=== PATIENT | male | born 1955 | race Caucasian/White ===

== ENCOUNTER 2017-08-16 15:22 | Inpatient (IN) | payer OTHER ==
[2017-08-16 16:09] LABS: Protime INR 1.03
[2017-08-16 16:11] LABS: Absolute Lymphocytes (CBC) 2.3 K/uL (0.7-4.9); Absolute Monocytes 0.6 K/uL (0.1-1.3); Absolute Neutrophil 4.3 K/uL (1.8-8.0); Basophils % 1.2 % (0-1.3); Eosinophils % 2.1 % (0-4.4); Hematocrit 47.7 % (39.6-49.0); MCH 32.8 pg (27.0-35.0); MPV 10.3 fL (7.6-11.3); Monocytes % 7.8 % (3.3-12.3); RBC Red Blood Cell Count 4.97 M/uL (4.33-5.43)
[2017-08-16 16:18] LABS: Potassium 3.8 mmol/L (3.5-5.1)
--- NOTE | 2017-08-16 16:32 | RAD REPORT ---
EXAM DESCRIPTION: RAD - Chest Single View - 08/16/2017 4:27 pm CLINICAL HISTORY: CHEST PAIN Chest pain. COMPARISON: Chest Pa And Lat (2 Views) dated 08/09/2017; Chest Pa And Lat (2 Views) dated 12/04/2015; Chest Pa And Lat (2 Views) dated 10/15/2015; CHEST SINGLE VIEW dated 04/07/2015 FINDINGS: Portable technique limits examination quality. The lungs are grossly clear. The heart is mildly enlarged in size. No displaced fractures. IMPRESSION: No acute intrathoracic process suspected.
[2017-08-16 17:54] LABS: Urine Blood NEGATIVE (NEG); Urine Glucose 2+ (NEG); Urine Protein 1+ (NEG)
--- NOTE | 2017-08-16 17:56 | ER ---
Nurse's Notes [facility] Name: Jersey De Leon Jr Age: 62 yrs Sex: Male : 1955 Arrival Date: 08/16/2017 Time: 15:27 Bed 6 Private MD: Moi Berry R Diagnosis: Chest pain, unspecified;Angina pectoris, unspecified Presentation: 08/16 15:33 Presenting complaint: Patient states: Sent by Dr. Luciano for Unstable Angina. Pt ss reports feeling fatigue, shortness of breath and unable to sleep for "a while". reports patient had an EKG three weeks ago and was told recently that it looked like he may need another cardiac stent. Transition of care: patient was not received from another setting of care. Onset of symptoms is unknown. Risk Assessment: Do you want to hurt yourself or someone else? Patient reports no desire to harm self or others. Initial Sepsis Screen: Does the patient meet any 2 criteria? No. Patient's initial sepsis screen is negative. Does the patient have a suspected source of infection? No. Patient's initial sepsis screen is negative. Care prior to arrival: None. 15:33 Method Of Arrival: Ambulatory ss 15:33 Acuity: RODERICK 3 ss Historical: - Allergies: 15:36 Morphine; ss 15:36 Paxil; ss - PMHx: 15:36 High Cholesterol; Diabetes - NIDDM; Leukemia; CAD; Kidney stones; ss - PSHx: 15:36 cardiac stents x5; ss - Immunization history:: Adult Immunizations up to date. - Social history:: Smoking status: Patient uses tobacco products, smokes one pack cigarettes per day. - Ebola Screening: : Patient denies exposure to infectious person Patient denies travel to an Ebola-affected area in the 21 days before illness onset. - Family history:: not pertinent. - Hospitalizations: : No recent hospitalization is reported. Screenin:44 Abuse screen: Denies threats or abuse. Nutritional screening: No deficits noted. tw2 Tuberculosis screening: No symptoms or risk factors identified. Fall Risk None identified. Assessment: 15:57 General: Appears in no apparent distress. Behavior is calm, cooperative, appropriate tw2 for age, Smells of cigarette smoke. Pain: Complains of pain in chest Pain does not radiate. Pain began "weeks now". Neuro: Level of Consciousness is awake, alert, obeys commands, Oriented to person, place, time, situation. Cardiovascular: Reports chest pain, shortness of breath, Heart tones S1 S2 Patient's skin is warm and dry. Respiratory: Airway is patent Respiratory effort is even, unlabored, Respiratory pattern is regular, symmetrical, Breath sounds are clear bilaterally. GI: Abdomen is round non-distended, Bowel sounds present X 4 quads. GI: No signs and/or symptoms were reported involving the gastrointestinal system. : No signs and/or symptoms were reported regarding the genitourinary system. EENT: No signs and/or symptoms were reported regarding the EENT system. Derm: Skin is intact, is healthy with good turgor, Skin temperature is warm. Musculoskeletal: Range of motion: intact in all extremities. 17:17 Reassessment: Patient appears in no apparent distress at this time. No changes from tw2 previously documented assessment. Patient and/or family updated on plan of care and expected duration. Pain level reassessed. Patient is alert, oriented x 3, equal unlabored respirations, skin warm/dry/pink. 17:24 Reassessment: pt ambulated to bathroom to urinate at this time, sample returned to tw2 room, pt walked with cane outside to smoke, states "i have been doing this at [facility] and have upstairs before", pt educated as to our hospital policy as a no smoking campus and that IV will have to be discontinued at this time, provider notified. pt remains outside to smoke at this time. 18:19 Reassessment: Patient appears in no apparent distress at this time. No changes from tw2 previously documented assessment. Patient and/or family updated on plan of care and expected duration. Pain level reassessed. Patient is alert, oriented x 3, equal unlabored respirations, skin warm/dry/pink. 19:21 Reassessment: Patient appears in no apparent distress at this time. Patient is alert, lp1 oriented x 3, equal unlabored respirations, skin warm/dry/pink. Aware of pending admission. Respiratory: Breath sounds are clear bilaterally. 19:36 Reassessment: Attempted to call report at this time, nurse will call back. lp1 19:45 Reassessment: Attempted to call report at this time. lp1 Vital Signs: 15:36 BP 115 / 70; Pulse 85; Resp 18; Pulse Ox 96% on R/A; Weight 106.59 kg; Height 6 ft. 2 ss in. (187.96 cm); Pain 0/10; 15:52 Temp 98.7(O); em1 16:14 BP 102 / 68; Pulse 70; Resp 19; Pulse Ox 96% on R/A; tw2 16:41 BP 95 / 64; Pulse 86; Resp 22; Pulse Ox 95% on R/A; tw2 17:17 BP 104 / 66; Pulse 86; Resp 21; Pulse Ox 96% ; tw2 18:19 BP 95 / 70; Pulse 82; Resp 17; Pulse Ox 96% on R/A; tw2 18:43 BP 98 / 64; Pulse 79; Resp 16; Pulse Ox 96% on R/A; tw2 19:16 BP 105 / 63; Pulse 80; Resp 18; Pulse Ox 97% on R/A; mt 19:21 BP 103 / 62; Pulse 77; Resp 15; Temp 98.3(O); Pulse Ox 95% on R/A; lp1 15:36 Body Mass Index 30.17 (106.59 kg, 187.96 cm) ss ED Course: 15:27 Patient arrived in ED. rg4 15:28 Moi Berry MD is Private Physician. rg4 15:28 Zoltan Sepulveda MD is Attending Physician. rn 15:35 Triage completed. ss 15:36 Arm band placed on right wrist. ss 15:43 Argelia Alcantara, STAN is Primary Nurse. tw2 15:43 Placed in gown. Bed in low position. Adult w/ patient. hotel office manager on. Pulse ox on. tw2 NIBP on. 15:44 Patient maintains SpO2 saturation greater than 95% on room air. tw2 15:50 No provider procedures requiring assistance completed. Inserted saline lock: 20 gauge tw2 in right antecubital area, using aseptic technique. Blood collected. 15:51 EKG done, by electrophysiology technician. reviewed by Zoltan Sepulveda MD. sm3 15:56 CBC with Diff Sent. tw2 15:56 Basic Metabolic Panel Sent. tw2 15:56 Troponin (emerg Dept Use Only) Sent. tw2 15:56 Protime (+inr) Sent. tw2 15:56 Ptt, Activated Sent. tw2 16:24 X-ray completed. Portable x-ray completed in exam room. Patient tolerated procedure ml well. 16:27 XRAY Chest (1 view) In Process Unspecified. EDMS 17:25 IV discontinued, intact, bleeding controlled, No redness/swelling at site. Pressure tw2 dressing applied. 17:55 Moi Berry MD is Hospitalizing Provider. rn 18:26 Inserted saline lock: 20 gauge in right antecubital area, using aseptic technique. tw2 18:58 Report given to STAN Nascimento. tw2 Administered Medications: 18:26 Drug: Aspirin Chewable Tablet 324 mg Route: PO; tw2 18:31 Follow up: Response: No adverse reaction tw2 18:31 Drug: NS 0.9% 250 ml Route: IV; Rate: bolus; Site: right antecubital; tw2 19:06 Follow up: IV Status: Completed infusion; IV Intake: 250ml tw2 18:52 Not Given (Patient Refused; "it lowers my Blood pressure and i will be in the 70/40's", tw2 provider notified, 250NS bolus orderd HOLD for BP >110 systolic or have director oracle database reeval ): Effient 60 mg PO once; (loading dose) Intake: 19:06 IV: 250ml; Total: 250ml. tw2 Outcome: 17:55 Decision to Hospitalize by Provider. rn 20:02 Admitted to Med/surg via wheelchair, room 208, with chart, Report called to STAN [place] lp1 20:02 Condition: stable 20:02 Instructed on the need for admit. 20:03 Patient left the ED. lp1 Signatures: Dispatcher [employer] EDMS Chelsey Caicedo Roman, MD MD rn Martinez, Eric em1 Bree Carlos RN RN ss Pily Tai RN RN lp1 Argelia Alcantara RN RN tw2 Kiley Stone [address], [facility] Jessica Bridges [facility]
--- NOTE | 2017-08-16 17:57 | EDPHYS ---
Physician Documentation [facility] Name: Jersey De Leon Jr Age: 62 yrs Sex: Male : 1955 Arrival Date: 08/16/2017 Time: 15:27 Bed 6 Private MD: Moi Berry R ED Physician Zoltan Sepulveda HPI: 08/16 15:52 This 62 yrs old Male presents to ER via Ambulatory with complaints of Chest rn Pressure, Breathing Difficulty, Weakness. 15:52 The patient has shortness of breath at rest, with light activity. Onset: The rn symptoms/episode began/occurred at an unknown time. Duration: The symptoms are intermittent. Associated signs and symptoms: Pertinent positives: non-productive cough, Pertinent negatives: chest pain, fever, hemoptysis, loss of consciousness. Severity of symptoms: At their worst the symptoms were moderate in the emergency department the symptoms are unchanged. The patient has experienced similar episodes in the past. Sent by Dr. Luciano for cath tomorrow, reports intermittent sob, at rest and with exertion, + smoker, + 5 stents in past, on maintenance chemo for leukemia. . Historical: - Allergies: 15:36 Morphine; ss 15:36 Paxil; ss - PMHx: 15:36 High Cholesterol; Diabetes - NIDDM; Leukemia; CAD; Kidney stones; ss - PSHx: 15:36 cardiac stents x5; ss - Immunization history:: Adult Immunizations up to date. - Social history:: Smoking status: Patient uses tobacco products, smokes one pack cigarettes per day. - Ebola Screening: : Patient denies exposure to infectious person Patient denies travel to an Ebola-affected area in the 21 days before illness onset. - Family history:: not pertinent. - Hospitalizations: : No recent hospitalization is reported. ROS: 15:52 Constitutional: Negative for fever, chills, and weight loss, Eyes: Negative for injury, rn pain, redness, and discharge, Neck: Negative for injury, pain, and swelling, Cardiovascular: Negative for chest pain, palpitations, and edema, Respiratory: Negative for wheezing, and pleuritic chest pain, Abdomen/GI: Negative for abdominal pain, nausea, vomiting, diarrhea, and constipation, MS/Extremity: Negative for injury and deformity, Skin: Negative for injury, rash, and discoloration, Neuro: + generalized weakness Exam: 15:52 Constitutional: This is a well developed, well nourished patient who is awake, alert, rn and in no acute distress. Head/Face: Normocephalic, atraumatic. Eyes: Pupils equal round and reactive to light, extra-ocular motions intact. Lids and lashes normal. Conjunctiva and sclera are non-icteric and not injected. Cornea within normal limits. Periorbital areas with no swelling, redness, or edema. Cardiovascular: Regular rate and rhythm with a normal S1 and S2. No gallops, murmurs, or rubs. Normal PMI, no JVD. No pulse deficits. Respiratory: faint exp wheezing, no retractions, speaks full sentences Abdomen/GI: Soft, non-tender, with normal bowel sounds. No distension or tympany. No guarding or rebound. No evidence of tenderness throughout. MS/ Extremity: Pulses equal, no cyanosis. Neurovascular intact. Full, normal range of motion. Equal circumference. Neuro: Awake and alert, GCS 15, oriented to person, place, time, and situation. Cranial nerves II-XII grossly intact. Motor strength 5/5 in all extremities. Sensory grossly intact. Cerebellar exam normal. Normal gait. Vital Signs: 15:36 BP 115 / 70; Pulse 85; Resp 18; Pulse Ox 96% on R/A; Weight 106.59 kg; Height 6 ft. 2 ss in. (187.96 cm); Pain 0/10; 15:52 Temp 98.7(O); em1 16:14 BP 102 / 68; Pulse 70; Resp 19; Pulse Ox 96% on R/A; tw2 16:41 BP 95 / 64; Pulse 86; Resp 22; Pulse Ox 95% on R/A; tw2 17:17 BP 104 / 66; Pulse 86; Resp 21; Pulse Ox 96% ; tw2 18:19 BP 95 / 70; Pulse 82; Resp 17; Pulse Ox 96% on R/A; tw2 18:43 BP 98 / 64; Pulse 79; Resp 16; Pulse Ox 96% on R/A; tw2 19:16 BP 105 / 63; Pulse 80; Resp 18; Pulse Ox 97% on R/A; mt 19:21 BP 103 / 62; Pulse 77; Resp 15; Temp 98.3(O); Pulse Ox 95% on R/A; lp1 15:36 Body Mass Index 30.17 (106.59 kg, 187.96 cm) ss MDM: 15:28 Patient medically screened. rn 17:52 Differential diagnosis: CHF exacerbation, Myocardial Infarction Pneumothorax pulmonary rn edema. Data reviewed: vital signs, nurses notes, lab test result(s), EKG, radiologic studies, plain films, and as a result, I will admit patient. Counseling: I had a detailed discussion with the patient and/or guardian regarding: the historical points, exam findings, and any diagnostic results supporting the discharge/admit diagnosis, lab results, radiology results, the need for further work-up and treatment in the hospital. Admission orders: after a detailed discussion of the patient's condition and case, the admit orders are written by me. 08/16 15:29 Order name: CBC with Diff; Complete Time: 17:43 08/16 15:29 Order name: Basic Metabolic Panel; Complete Time: 17:43 08/16 15:29 Order name: Protime (+inr); Complete Time: 17:43 08/16 15:29 Order name: Ptt, Activated; Complete Time: 17:43 08/16 15:29 Order name: Troponin (emerg Dept Use Only); Complete Time: 17:43 08/16 15:47 Order name: N-Terminal Pro-brain Natriuretic Peptide; Complete Time: 17:43 08/16 15:29 Order name: EKG; Complete Time: 15:30 08/16 15:29 Order name: EKG - Nurse/Tech; Complete Time: 15:46 08/16 15:29 Order name: XRAY Chest (1 view); Complete Time: 17:43 08/16 17:49 Order name: Urine Dipstick--Ancillary (enter results); Complete Time: 17:56 eb Administered Medications: 18:26 Drug: Aspirin Chewable Tablet 324 mg Route: PO; tw2 18:31 Follow up: Response: No adverse reaction tw2 18:31 Drug: NS 0.9% 250 ml Route: IV; Rate: bolus; Site: right antecubital; tw2 19:06 Follow up: IV Status: Completed infusion; IV Intake: 250ml tw2 18:52 Not Given (Patient Refused; "it lowers my Blood pressure and i will be in the 70/40's", tw2 provider notified, 250NS bolus orderd HOLD for BP >110 systolic or have gas dispatcher reeval ): Effient 60 mg PO once; (loading dose) Disposition: 08/16/17 17:55 Hospitalization ordered by Moi Berry for Inpatient Admission. Preliminary diagnosis are Chest pain, unspecified, Angina pectoris, unspecified. - Bed requested for Telemetry/MedSurg (Inpatient). - Status is Inpatient Admission. lp1 - Condition is Stable. - Problem is an ongoing problem. - Symptoms have improved. UTI on Admission? No Signatures: Dispatcher [employer] EDMS Zoltan Sepulveda MD MD rn Bree Carlos RN RN ss Pily Tai RN RN lp1 Argelia Alcantara RN RN tw2 Chanel Vance Corrections: (The following items were deleted from the chart) 18:18 17:55 Hospitalization Ordered by Moi Berry MD for Inpatient Admission. Preliminary eb diagnosis is Chest pain, unspecified; Angina pectoris, unspecified. Bed requested for Telemetry/MedSurg (Inpatient). Status is Inpatient Admission. Condition is Stable. Problem is an ongoing problem. Symptoms have improved. UTI on Admission? No. rn 20:03 18:18 08/16/2017 17:55 Hospitalization Ordered by Moi Berry MD for Inpatient lp1 Admission. Preliminary diagnosis is Chest pain, unspecified; Angina pectoris, unspecified. Bed requested for Telemetry/MedSurg (Inpatient). Status is Inpatient Admission. Condition is Stable. Problem is an ongoing problem. Symptoms have improved. UTI on Admission? No. eb
[2017-08-16] MEDS ORDERED: ASPIRIN 81 MG CHEWABLE TABLET ONE (18:22)
[2017-08-16] MEDS ORDERED: NA CHLORIDE 0.9% 250 ML ONE (18:31)
[2017-08-16] MEDS ORDERED: PRASUGREL (EFFIENT) 10 MG TAB PO ONE (19:00)
[2017-08-16] MEDS ORDERED: ONDANSETRON 4 MG/2 ML VIAL IV PRN (20:26)
[2017-08-16] MEDS ORDERED: GLUCAGON 1 MG/VIAL IM PRN (21:24)
[2017-08-16] MEDS ORDERED: D50W 25 GM/50 ML SYRINGE IV PRN (21:24)
--- NOTE | 2017-08-16 21:33 | EKG ---
Test Date: 2017-08-16 Test Time: 15:34:02 Decision Unit Rn: RJ MEASUREMENT RESULTS: Intervals: Rate: 85 W[place]: 152 QRSD: 96 QT: 374 QTc: 445 [place]: P: 45 [place]: 152 QRS: -33 T: 107 INTERPRETIVE STATEMENTS: Normal sinus rhythm Possible Left atrial enlargement Left axis deviation Inferior infarct, age undetermined T wave abnormality, consider lateral ischemia Abnormal ECG Compared to ECG 09/21/2015 20:14:36 Left-axis deviation now present T-wave abnormality now present Possible ischemia now present Sinus tachycardia no longer present Ventricular premature complex(es) no longer present Myocardial infarct finding still present Electronically Signed On 08-16-17 21:33:20 CDT by Danny Luciano
[2017-08-16 23:34] VITALS: BMI 30.2
--- NOTE | 2017-08-17 02:41 | CON ---
Date of Consultation: 08/16/2017 Reason For Consult: Unstable angina. History Of Present Illness: Mr. De Leon is a gentleman, who has had numerous intracoronary stents inc luding some done about 7 years ago. In 2015, he developed acute lymphocytic leukemia, and while unde rgoing chemotherapy, he had at least 2 other stents done, of which we have no records. Over the last 2 months, he has been feeling lots of shortness of breath, fatigued, discomfort in the chest, and it feels to him like he is having angina again, like he has had before. He has underlying diabetes, hy pertension, dyslipidemia. His acute lymphocytic leukemia was diagnosed in October 2015, with aggre ssive chemotherapy, is in remission, although he does continue to take mercaptopurine twice a day and methotrexate once weekly. Medications: His other medications: 1.Lipitor. 2.Tramadol. 3.Glipizide. 4.Tradjenta. 5.He also uses Humalog KwikPen insulin, exact doses are not entirely clear. Social History: He does not use tobacco. He was a smoker in the past. Allergies: HE REPORTS DRUG INTOLERANCE TO MORPHINE AND PAROXETINE. Physical Examination: Vital Signs: Height 6 feet 2 inches. Weight 235 pounds. HEENT : Normal. Lungs: Clear. Heart: Reveals an S4 gallop. Abdomen: Soft. Extremities: Unremarkable. Distal pulses are palpable. Laboratory Data: Reveals a normal troponin. Creatinine 1.0. B-natriuretic peptide 1063. His hemog lobin 16.3, platelet count 129,000, white count 7400. His urine screen is negative, except for a little sugar in his urine. His electrocardiogram shows sinus rhythm, occasional PVCs, nonspecific ST and T-wave abnormality, pos sible anterior infarct. Impression: Mr. De Leon is probably having an unstable angina. I have recommended a cardiac cath to him. He seems to understand the procedure, its potential benefits, indications, risks, and agrees to proceed. We will do this tomorrow, we will use primary radial approach. We will switch to femoral if needed. The patient seems to understand the procedure, potential benefits, indications, risks, an d agrees to proceed. PEDRO LUIS/LORETTA Voice ID: [id number] Report ID: [id number]
[2017-08-17 05:14] LABS: Absolute Lymphocytes (CBC) 2.2 K/uL (0.7-4.9); Absolute Monocytes 0.6 K/uL (0.1-1.3); Absolute Neutrophil 4.2 K/uL (1.8-8.0); Basophils % 0.5 % (0-1.3); Eosinophils % 2.4 % (0-4.4); Hematocrit 44.8 % (39.6-49.0); Lymphocytes % 30.2 % (15.3-44.8); MCH 33.3 pg (27.0-35.0); MCV 94.9 fL (80-100); MPV 10.3 fL (7.6-11.3); Monocytes % 8.7 % (3.3-12.3); RBC Red Blood Cell Count 4.72 M/uL (4.33-5.43)
[2017-08-17 05:37] LABS: Potassium 3.9 mmol/L (3.5-5.1)
[2017-08-17] MEDS: INSULIN -REGULAR HUMAN 50 UNIT/0.5 ML ML SQ SCH ×3 (07:30→16:30)
[2017-08-17] MEDS ORDERED: GLIPIZIDE S.A. 5 MG TAB PO SCH (08:00)
[2017-08-17] MEDS ORDERED: HEPA 1000U/500MLS 2,000 UNIT/1,000 ML BAG IV ONE (08:40)
[2017-08-17] MEDS ORDERED: HEPARIN 5000 UNIT/ML 1 ML VIAL ONE (08:40)
[2017-08-17] MEDS ORDERED: ATROPINE SULF 1 MG/10 ML SYR IV ONE (08:40)
[2017-08-17] MEDS ORDERED: FENTANYL CITR 100 MCG/2 ML ONE (08:40)
[2017-08-17] MEDS ORDERED: MIDAZOLAM HCL 2 MG/2 ML INJ ONE ×2 (08:40→09:50)
[2017-08-17] MEDS ORDERED: NA CHLORIDE 0.9% 0 ML ONE (08:40)
[2017-08-17] MEDS ORDERED: NICARDIPINE HCL 25 MG/10 ML IV ONE (08:41)
[2017-08-17] MEDS ORDERED: NITROGLYCERIN/D5W 25 MG/250 ML BTL IV ONE (08:41)
[2017-08-17] MEDS ORDERED: LIDOCAINE 1% 20 ML MDV ONE (08:41)
[2017-08-17] MEDS ORDERED: ASPIRIN EC 81 MG TAB PO SCH (09:00)
[2017-08-17] MEDS ORDERED: PRASUGREL (EFFIENT) 10 MG TAB PO SCH (09:00)
[2017-08-17 09:04] VITALS: TEMP 97.4
[2017-08-17] MEDS ORDERED: NA CHLORIDE 0.9% 500 ML ONE (09:31)
[2017-08-17 11:48] VITALS: O2SAT 95
[2017-08-17 11:51] VITALS: BP 113/75
--- NOTE | 2017-08-17 12:06 | HP ---
Date of Admission: 08/16/2017 Chief Complaint: Recurrent chest pain. History Of Present Illness: A 62-year-old male, who is undergoing chemotherapy for leukemia started having recurrent chest pain. He was advised to see the local loader helper. The patient was seen in the emergency room. There was no evidence of acute injury. The patient is admitted for possible cat heterization. Past Medical History: Relevant to the current issue is history of cardiac stenting x5, history of hi gh cholesterol, type 2 diabetes. Other medical problems include current treatment of leukemia and hi story of kidney stones. Allergies: MORPHINE AND PAXIL. Family History: Noncontributory. Personal History: Nonsmoker. Review of Systems: No fever, chills, rigors. Physical Examination: General: Reveals 62-year-old male, fully alert and oriented. HEENT: Negative. Neck: Supple. JVD negative. Chest: Clear. Heart: Regular. Abdomen: Soft. Extremities: No edema. Assessment: 1.Unstable angina. 2.Type 2 diabetes. 3.Known coronary artery disease, status post angioplasty. 4.Hyperlipidemia. 5.Leukemia, on chemotherapy. Plan: The patient had a cardiac cath done and because of extensive nature of the disease, the patien t is in the process of being transferred to [facility] for further care. CHARO/LORETTA Voice ID: [id number]
--- NOTE | 2017-08-17 12:08 | EKG ---
Test Date: 2017-08-17 Test Time: 08:45:02 Food Production Associate: MATILDA MEASUREMENT RESULTS: Intervals: Rate: 79 [place]: 158 QRSD: 96 QT: 396 QTc: 454 [place]: P: 54 [place]: 158 QRS: -22 T: 101 INTERPRETIVE STATEMENTS: Sinus rhythm with occasional premature ventricular complexes Possible Left atrial enlargement Inferior infarct, age undetermined Abnormal ECG Compared to ECG 08/16/2017 15:34:02 Ventricular premature complex(es) now present Left-axis deviation no longer present T-wave abnormality no longer present Possible ischemia no longer present Myocardial infarct finding still present Electronically Signed On 08-17-17 12:07:10 CDT by Danny Luciano
--- NOTE | 2017-08-17 20:18 | OP ---
Surgeon: Danny Luciano MD Procedures: Left heart catheterization with coronary and left ventricular angiography. Findings: The patient's ejection fraction is 25%. There is akinesis of the apex anterolateral wall. His left main coronary artery has a 70% stenosis. The circumflex trunk has a 70% stenosis. The LA D has a patent stent, less than 50% stenosis. The right coronary artery is diffusely diseased, multi ple sequential 50-70% stenoses and the recommendation is that he undergo bypass surgery. Procedure In Detail: The patient developed signs and symptoms of unstable angina, who gave us inform ed consent, was brought to the cardiac laboratory tech in a fasting state, sedated with Versed and fentanyl, titrated to an adequate level of sedation. The right radial artery was used, prepared and draped. A 1% lidocaine was used to anesthetize the skin around the artery. The artery was entered using a 21 -gauge needle. A 0.021 inch diameter guidewire, 6-Namibian Terumo radial sheath was used. We flushed the sheath and gave the radial cocktail consisting of nicardipine, heparin, nitroglycerin. We used a TIG catheter. Guided it into the ascending aorta. Using fluoroscopy and a Augure Glidewire with a short radius J-tip, we were able to use the TIG catheter for all of the angiograms and pressure measu rements. At the end of the procedure when a decision was made not to do any intervention, the cathet er was withdrawn over a J-wire. The sheath was flushed, removed, and arteriotomy closed using a TR b and. No complications from the procedure. Estimated Blood Loss: 5 cc. Continuous Improvement Director: Jyotsna Valdez. PEDRO LUIS/LORETTA Voice ID: [id number] Report ID: [id number]
[2017-08-17] MEDS ORDERED: ATORVASTATIN 80 MG TAB PO SCH (21:00)
== END 2017-08-17 16:30 | disposition short-term general hospital (02) | DRG 287 ==
LOC: ER 15:22 → ERHOLD 17:57 → 2ND 19:47
PROVIDERS: ADMIT Internal Medicine; ATTEND Internal Medicine
PROC: 4A023N7 Measurement of Cardiac Sampling and Pressure, Left Heart, Percutaneous Approach (ICD-10-PCS; principal; 2017-08-17)
PROC: B2111ZZ Fluoroscopy of Multiple Coronary Arteries using Low Osmolar Contrast (ICD-10-PCS; 2017-08-17)
PROC: B2151ZZ Fluoroscopy of Left Heart using Low Osmolar Contrast (ICD-10-PCS; 2017-08-17)
DX: I25.110 Atherosclerotic heart disease of native coronary artery with unstable angina pectoris (principal); C91.00 Acute lymphoblastic leukemia not having achieved remission; Z95.5 Presence of coronary angioplasty implant and graft; E11.9 Type 2 diabetes mellitus without complications; Z88.5 Allergy status to narcotic agent; Z88.8 Allergy status to other drugs, medicaments and biological substances; E78.5 Hyperlipidemia, unspecified; Z79.4 Long term (current) use of insulin; F17.210 Nicotine dependence, cigarettes, uncomplicated; I11.9 Hypertensive heart disease without heart failure; I49.3 Ventricular premature depolarization
CPT/HCPCS: 36415; 71045; 80048; 81003; 82962; 83880; 84484; 85025; 85610; 85730; 93005; 93458; 96365; 99285; C1893; J0583; J1644; J2250; J3010

== ENCOUNTER 2020-05-19 06:36 | Day surgery (SDC) | payer OTHER ==
--- NOTE | 2020-05-15 16:05 | RAD REPORT ---
EXAM DESCRIPTION: RAD - Chest Pa And Lat (2 Views) - 05/15/2020 4:00 pm CLINICAL HISTORY: preop Chest pain. COMPARISON: Chest Pa And Lat (2 Views) dated 12/14/2018; Chest Single View dated 08/16/2017; Chest Pa And Lat (2 Views) dated 08/09/2017; Chest Pa And Lat (2 Views) dated 12/04/2015; CHEST SINGLE VIEW date d 02/11/2008 FINDINGS: The lungs are mildly emphysematous but clear. The heart is normal in size. Multilead pacer /defibrillator device is present. Postsurgical changes are present of prior sternotomy. IMPRESSION: Mild COPD.
[2020-05-15 16:29] LABS: Protime INR 0.95
[2020-05-15 16:30] LABS: Absolute Lymphocytes (CBC) 3.3 K/uL (0.7-4.9); Basophils % 0.9 % (0-1.3); Hematocrit 50.9 % (39.6-49.0); Lymphocytes % 33.1 % (15.3-44.8); MPV 9.8 fL (7.6-11.3); RBC Red Blood Cell Count 5.65 M/uL (4.33-5.43)
[2020-05-15 16:47] LABS: Potassium 4.8 mmol/L (3.5-5.1)
--- NOTE | 2020-05-16 12:48 | EKG ---
Test Date: 2020-05-15 Test Time: 14:44:14 Truck Rental Manager: NOEMY MEASUREMENT RESULTS: Intervals: Rate: 85 ME: 166 QRSD: 100 QT: 374 QTc: 445 [place]: P: 63 ME: 166 QRS: -32 T: 129 INTERPRETIVE STATEMENTS: Normal sinus rhythm Possible Left atrial enlargement Left axis deviation Left ventricular hypertrophy with repolarization abnormality Inferior infarct, age undetermined Abnormal ECG Compared to ECG 08/17/2017 08:45:02 Left-axis deviation now present Left ventricular hypertrophy now present Early repolarization now present Ventricular premature complex(es) no longer present Myocardial infarct finding still present Electronically Signed On 05-16-20 12:45:37 CDT by Shawn Lockhart
[2020-05-19] MEDS ORDERED: NA CHLORIDE 0.9% 500 ML ONE (07:10)
[2020-05-19] MEDS ORDERED: LIDOCAINE 1% 20 ML MDV ONE (07:35)
[2020-05-19] MEDS ORDERED: HEPA 1000U/500MLS 1,000 UNIT/500 ML BAG IV ONE (07:35)
[2020-05-19] MEDS ORDERED: MIDAZOLAM HCL 2 MG/2 ML INJ ONE (07:35)
[2020-05-19] MEDS ORDERED: ATROPINE SULF 1 MG/10 ML SYR IV ONE (07:36)
[2020-05-19] MEDS ORDERED: FENTANYL CITR 100 MCG/2 ML ONE (07:36)
[2020-05-19 08:22] VITALS: TEMP 96.3
[2020-05-19 10:09] VITALS: BP 104/63; O2SAT 95
--- NOTE | 2020-05-19 12:11 | OP ---
Surgeon: Shawn Lockhart MD [employer] Manager: Dasia Aldana. A CD will be given to the patient and I will make an urgent appointment for him at [facility] for endarterectomy. Admitted to my service as an outpatient to the cath lab manager today 05/19/2020. Reason For Admission: Cerebrovascular disease, positive carotid Doppler, and the need for carotid an giogram. The patient underwent selective bilateral carotid angiogram. Procedure In Detail: He was brought to the cath lab manager as an outpatient, prepped and draped in the rout ine sterile fashion. Given Versed and fentanyl for sedation. A 6-Kazakh sheath was introduced in th e right common femoral artery successfully using the Seldinger technique and 10 cc of Xylocaine. A J R4 catheter was used to select the right common carotid artery and the left common carotid artery. A ngiography revealed a 95% ostial right internal carotid artery and a 50% stenosis in the left interna l carotid artery. There were no complications. Blood loss was 5 mL. Total conscious sedation was 4 5 minutes. Postoperative Diagnoses: Severe cerebrovascular disease, severe right ICA disease, moderate left ICA disease. Plan: Plan for a right carotid endarterectomy. REBEKAH/LORETTA Voice ID: [id number] Report ID: [id number]
== END 2020-05-19 10:10 | disposition home or self-care (01) ==
LOC: CCL 06:36
DX: I65.23 Occlusion and stenosis of bilateral carotid arteries (principal); I25.10 Atherosclerotic heart disease of native coronary artery without angina pectoris; I11.0 Hypertensive heart disease with heart failure; I50.22 Chronic systolic (congestive) heart failure; E78.2 Mixed hyperlipidemia; E11.9 Type 2 diabetes mellitus without complications; J44.1 Chronic obstructive pulmonary disease with (acute) exacerbation; Z95.810 Presence of automatic (implantable) cardiac defibrillator; Z95.1 Presence of aortocoronary bypass graft; Z87.891 Personal history of nicotine dependence; Z88.8 Allergy status to other drugs, medicaments and biological substances; Z20.822 Contact with and (suspected) exposure to COVID-19
CPT/HCPCS: 93005; 85025; 80048; 36415; 85610; 82947; 85730; 71046; 36222; U0003; C1893; C1760; J2250; J3010; J7040; J1644

== ENCOUNTER 2020-09-09 10:42 | Emergency (ER) | payer OTHER ==
--- OUTSIDE RECORDS SUMMARY | 2020-09-09 10:52 | XMS REPORT | Continuity of Care Document ---
:1955 Author Organization [facility] t Address [address] [place] [address] Care Team Providers Name Role Phone Ravindra MORAN Primary Care Physician Unavailable SYSTEM, NOT IN Attending Clinician Unavailable DO SORENSEN Attending Clinician Unavailable TAL Attending Clinician Unavailable Ravindra MORAN Attending Clinician Unavailable Girish Dunn RN Attending Clinician Lamont Latham MD Attending Clinician Kath GUZMÁN Attending Clinician LAMONT LATHAM Attending Clinician Unavailable Tian GUZMÁN Attending Clinician Sin Brown Attending Clinician Unavailable Gilmar PIERCE, S Attending Clinician Unavailable Tian GUZMÁN Attending Clinician Doctor Unassigned, Name Attending Clinician Unavailable LAMONT LATAHM Admitting Clinician Unavailable Payers Payer Name Policy Type Policy Number Effective Date Expiration Source Date MEDICARE PART A AND B [id number] 2020 00:00:00 [facility] [id number] 2020 00:00:00 MEDICAREMEDICARE A [id number] 2020 NIGEL landry [id number] 2020- 00:00:00 [facility] [id number] [facility] SUPPLEMENT/INDIVIDUAL 00:00:00 [facility] - BANKER'S Medical [id number] -PresentMedigap [facility] - [id number] 2015 [facility] MGD CAREUNITED HMO 00:00:00 [facility] - POS SELECT Medical [id number] 16-PresentHMO/POS [facility] PPO [id number] 2015 00:00:00 Problems Condition Condition Condition Status Onset Resolution Last Treating Co mments Source Name Details Category Date Date Treatment Clinician Date Stenosis Stenosis Disease Active [facility] right of right 05-29 [facility] - carotid carotid 00:00: Medical artery artery 00 Center Right Right Disease Active [facility] carotid carotid 05-29 [facility] - artery artery 00:00: Medical occlusion occlusion 00 Cent er Ischemic Ischemic Disease Active 2017-02 Metho di cardiomyop cardiomyop 02-25 st athy athy 00:00: Hospita 00 l HTN HTN Disease Active [facility] (hypertens (hypertens 08-29 Vania kes - ion) ion) 00:00: Medical 00 Center DM DM Disease Active [facility] (diabetes (diabetes 08-29 [facility] - mellitus) mellitus) 00:00: Medi harpal 00 Center VT VT Disease Active [facility] (ventricul (ventricul 08-29 Vania kes - ar ar 00:00: Medical tachycardi tachycardi 00 Ce nter a) a) Systolic Systolic Disease Active [facility] heart heart 08-29 [facility] - failure failure 00:00: Medical (HCC): EF (HCC): EF 00 Cent er 25-29% on 25-29% on 08/29/17 08/29/17 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) 00:00: Medi harpal in in 00 Center remission remission CAD CAD Disease Active [facility] (coronary (coronary 7 [facility] - artery artery 00:00: Medical disease) disease) 00 Center Respirator Respirator Disease Active [facility] y y [facility] - insufficie insufficie Me dical ncy ncy Center S/P CABG x S/P CABG x Disease Active [facility] 2 2 [facility] Cardiogeni Cardiogeni Disease Active [facility] c shock c shock [facility] Lactic Lactic Disease Active [facility] acidosis acidosis [facility] Acute Acute Disease Active [facility] respirator respirator kes - y failure y failure [facility] with with Center hypoxia hypoxia Allergies, Adverse Reactions, Alerts Allergy Allergy Status Severity Reaction(s) Onset Inactive Treating Comm ents Source Name Type Date Date Clinician Morphine Propensi Active Other (See 2017-02 "Heart Me thodi ty to Comments) 02-[address] adverse 00:00: symptoms" Hospit a reaction 00 "Dyspnea, l s to elevated drug BP, irregular heart rhythm" Paroxeti Propensi Active Other (See 2017-02 "Made me Methodi ne Hcl ty to Comments) 02-25 crazy" st adverse 00:00: Hospita reaction 00 l s to drug Morphine Drug Active Palpitations Respirato [facility] Allergy 08-17 ry kes - 00:00: depressio Medical 00 n Center Paroxeti Propensi Active [facility] ne Hcl ty to 08-17 [facility] - adverse 00:00: Medical reaction 00 Center s Social History Social Habit Start Date Stop Date Quantity Comments Source History SDCT Sabianism Alcohol Binge Hospital History [facility] Sabianism Alcohol Std Drinks Hospit al Sex Assigned At [facility] Cigarettes smoked 2020-05-30 2020-05-[address] [facility] varsha - current (pack per 00:00:00 00:00:00 [facility] Center day) - Reported Cigarette 2020-05-30 2020-05-[address] [facility] varsha - pack-years 00:00:00 00:00:00 [facility] Tobacco use and 2020-05-30 2020-05-[address] [facility] L ukes - exposure 00:00:00 00:00:00 [facility] Alcohol intake 2020-05-30 2020-05-[address] [facility] St Carok es - 00:00:00 00:00:00 non-drinker of Medical Ce nter alcohol (finding) History SDOH 2017-12-26 2017-12-26 1 Sabianism Alcohol Frequency 00:00:00 00:00:00 Hospita l Smoking Status Start Date Stop Date Source Current every day smoker 2020-05-30 00:00:[address] [facility] Medications Ordered Filled Start Stop Current Ordering Indication Dosage Frequency Signature Comments Components Source Medication Medication Date Date Medication? Clinician (SIG) Name Name ipratropium Yes 2{puff} [id number] Inhale [address] (ATROVENT 4-24 [id number] puffs by [facility] - HFA) 17 13:25: 3D mouth via Medic al mcg/actuati [address] on inhaler (three) times daily. aspirin 81 Yes 81mg QD Take [address] MG EC 4-24 by mouth [facility] - tablet 13:25: daily. Medical 44 Center atorvastati Yes 80mg QD Take [address] n (LIPITOR) 4-24 by mouth Luke s - 80 MG 13:25: daily. Medical tablet 44 Center sacubitril- Yes 1{tbl} Q.5D Take [address] valsartan 4-24 tablet by [facility] - (ENTRESTO) 13:25: mouth 2 Medi harpal 24-26 mg 44 (two) Center Tab times daily. bumetanide Yes 1mg Q.5D Take [address] (BUMEX) 1 4-24 by mouth 2 Luke s - MG tablet 13:25: (two) Medical 44 times Center daily. calcium Yes 1{tbl} QD Take [address] carbonate 4-24 tablet by [facility]ukes - (TUMS) 500 13:25: mouth Medica l mg chewable 44 daily. Center tablet promethazin 2020- No 25mg Take [address] e -23 -23 by mouth [facility] - (PHENERGAN) 22:33: 00:00 every 8 Me dical 12.5 MG 14 :00 (eight) Center tablet hours as needed for Nausea. glipiZIDE 2020- No 5mg Take [address] (GLUCOTROL) 23 04-23 by mouth 2 L ukes - 10 MG 22:33: 00:00 (two) Medical tablet 14 :00 times Center daily before meals . cetirizine 2020- No 10mg QD Take [address] (ZYRTEC) 10 4-14 04-14 by mouth Carlos es - mg Cap 11:19: 00:00 nightly. Medica l 32 :00 [place] insulin 2019-02 Yes 15U Inject 15 [facility] glargine 0-28 Units [facility]ukes - (Lantus 00:00: subcutaneo Medi harpal Solostar 00 usly daily Cente r U-100 with Insulin) breakfast 100 unit/mL . (3 mL) In insulin 2019-02 Yes 4U Inject [facility] lispro 0-28 4-10 Units [facility]ukes - (HumaLOG 00:00: subcutaneo Med ical KwikPen 00 usly Center Insulin) Sliding 100 unit/mL scale. [facility] budesonide- 2019-02 Yes 2{puff} Q.5D [address] formoteroL 0-23 (two) [facility] - (Symbicort) 00:00: times Medic al 160-4.5 00 daily. [place] mcg/actuati on inhaler traMADol 2017-02 Yes 50mg Take [address] (ULTRAM) 50 2-27 by mouth. Carlos es - mg tablet 00:00: Medical 00 [place] atorvastati 2017-02 Yes 80mg QD Take 80 mg Methodi n (LIPITOR) 1-[address] 80 MG 15:07: daily. Hospita tablet 39 States l cholestero l levels have improved, and also needs new prescripti on aspirin 2017-02 Yes 81mg QD Take 81 mg Meth joo (ECOTRIN) 1-[address] 81 MG 15:07: daily. Hospita enteric 39 l coated tablet ipratropium 2017-02 Yes 1{puff} Inhale 1 Methodi (ATROVENT 1-[address] HFA) 17 15:07: needed for Hosp gene mcg/actuati 39 wheezing. l on inhaler promethazin 2017-02 Yes 12.5mg Q6H Take 12.5 Methodi e 1-[address] (PHENERGAN) 15:07: mouth Hospi ta 12.5 MG 39 every 6 l tablet (six) hours as needed for nausea or vomiting. sacubitril- 2017-02 Yes Q.5D Take by Met hodi valsartan 1-[address] (ENTRESTO) 15:07: (two) Hospit a 24-26 mg 39 times a l tablet per day. tablet linagliptin 2017-02 Yes 5mg QD Take 5 mg M ethodi (TRADJENTA) 1-[address] 5 mg tablet 15:07: every Hospi ta 39 evening. l States has not needed recently glipiZIDE 2017-02 Yes 10mg QD Take 10 mg Me thodi (GLUCOTROL) 1-[address] 10 MG 15:07: every Hospita tablet 39 morning. l amIODarone 2017-02 Yes 200mg QD Take 200 Me thodi (PACERONE) 1-[address] 200 MG 15:07: mouth Hospita tablet 39 daily. l BUMETanide 2017-02 Yes 1mg Q.5D Take 1 mg Me thodi (BUMEX) 1 1-[address] MG tablet 15:07: (two) Hospita 39 times a l day. calcium 2017-02 Yes 1{tbl} QD Chew 1 Method i carbonate 1-[address] (TUMS) 200 15:07: daily. Hospi ta mg calcium 39 l (500 mg) chewable tablet amiodarone 2020- No Take [address] (PACERONE) 7- 04-23 for 7 days Vania kes - 200 MG 00:00: 00:00 then Medical tablet 00 :00 reduced to Center 1 po daily thereafter . Vital Signs Vital Name Observation Time Observation Value Comments Source WEIGHT 2020-06-23 08:36:00 94.2 kg WEIGHT 2020-01-02 09:41:00 101.4 kg WEIGHT 2019-09-05 09:33:21 99.2 kg Heart rate 2020-05-31 09:16:00 92 /min [facility] Respiratory rate 2020-05-31 09:16:00 18 /min [facility] Oxygen saturation in 2020-05-31 09:16:00 97 /min [facility] - Arterial blood by Medical Ce nter Pulse oximetry Systolic blood 2020-05-31 07:00:00 116 mm[Hg] [facility] Diastolic blood 2020-05-31 07:00:00 72 mm[Hg] [facility] S t [facility] Body temperature 2020-05-31 07:00:00 36.33 La [facility] Body height 2020-05-30 16:33:00 185.4 cm [facility] Body weight 2020-05-30 16:33:00 92.8 kg [facility] BMI 2020-05-30 16:33:00 26.99 kg/m2 [facility] Procedures Procedure Date / Time Performed Performing Clinician Tyra e POCT-GLUCOSE METER 2020-05-31 08:18:00 Francis Stockton [facility] POCT-GLUCOSE METER 2020-05-30 21:07:00 Francis Stockton [facility] POCT-GLUCOSE METER 2020-05-30 17:05:00 Justo Latham [facility] POCT-GLUCOSE METER 2020-05-30 12:30:00 Justo Latham [facility] POCT-GLUCOSE METER 2020-05-30 08:41:00 Justo Latham [facility] TSH/FREE T4 IF INDICATED 2020-05-30 08:13:00 Maxx Bharatrashad Da Silvasin josephine [facility] RPR 2020-05-30 08:13:00 Maxx [facility] VITAMIN B12 AND FOLATE 2020-05-30 08:13:00 Maxx [facility] CBC W/PLT COUNT & AUTO 2020-05-30 05:45:00 Francis Stockton [facility] BASIC METABOLIC PANEL 2020-05-30 05:45:00 Francis Stockton [facility] (7) [facility] MAGNESIUM 2020-05-30 05:45:00 Francis Stockton [facility] HEMOGLOBIN A1C 2020-05-30 05:45:00 Francis Stockton [facility] LIPID PANEL 2020-05-30 05:45:[address] [facility] POCT-GLUCOSE METER 2020-05-29 21:23:00 Justo Latham [facility] POCT-GLUCOSE METER 2020-05-29 17:39:00 Noa Justo [facility] GLUCOSE 2020-05-29 15:31:00 Yi Luciano [facility] POTASSIUM 2020-05-29 15:31:00 Yi Luciano [facility] LACTIC ACID, ARTERIAL 2020-05-29 15:31:00 Yi Luciano [facility] BASIC METABOLIC PANEL 2020-05-29 15:31:00 Yi Luciano [place] [id number]) [facility] POCT-GLUCOSE METER 2020-05-29 13:44:00 Noa [facility] POCT-GLUCOSE METER 2020-05-29 12:58:00 Noa Justo [facility] POCT-GLUCOSE METER 2020-05-29 11:40:00 Noa [facility] XR CHEST 1 VIEW 2020-05-29 11:29:00 Yi Luciano [facility] PORTABLE/BEDSIDE [facility] ECG 12-LEAD 2020-05-29 10:01:02 Unknown, Hl7 [facility] BLOOD GAS, ARTERIAL 2020-05-29 09:58:00 Garrick Ingram [facility] LACTIC ACID, ARTERIAL 2020-05-29 09:56:00 Garrick Ingram [facility] BASIC METABOLIC PANEL 2020-05-29 09:56:00 Garrick Ingram [place] [id number]) [facility] CBC (HEMOGRAM ONLY) 2020-05-29 09:56:00 Garrick Ingram [facility] MAGNESIUM 2020-05-29 09:56:00 Garrick Ingram [facility] BLOOD GAS, ARTERIAL 2020-05-29 09:08:16 [facility] 2020-05-29 09:08:16 Oliveros, [facility] POTASSIUM-STAT LAB 2020-05-29 09:08:16 Oliveros, [facility] GLUCOSE-STAT LAB 2020-05-29 09:08:16 Oliveros, [facility] HGB/HCT (H&H) - STAT LAB 2020-05-29 09:08:16 Oliveros, [facility] TISSUE EXAM 2020-05-29 08:36:00 Justo Latham [facility] BLOOD GAS, ARTERIAL 2020-05-29 08:13:30 Oliveros, [facility] CALCIUM, IONIZED 2020-05-29 08:13:30 Oliveros, [facility] SODIUM NA-STAT LAB 2020-05-29 08:13:30 Oliveros, [facility] POTASSIUM-STAT LAB 2020-05-29 08:13:30 Oliveros, [facility] GLUCOSE-STAT LAB 2020-05-29 08:13:30 Oliveros, [facility] HGB/HCT (H&H) - STAT LAB 2020-05-29 08:13:30 Oliveros, [facility] ENDARTERECTOMY,CAROTID 2020-05-29 07:00:00 Noa [facility] TYPE AND SCREEN, 2020-05-29 06:47:00 NoaJusto dominguez [facility] POCT-GLUCOSE METER 2020-05-29 06:26:00 NoaJusto dominguez [facility] CBC W/PLT COUNT & AUTO 2020-05-21 12:40:00 [facility] 2020-05-21 12:40:[address] [facility] () [facility] PROTHROMBIN TIME/INR 2020-05-21 12:40:00 [facility], 2020-05-21 12:40:[address] [facility] ECG 12-LEAD 2020-05-21 12:15:[address] [facility] Plan of Care Planned Activity Planned Date Details Comments Source Future Scheduled 2023-05-[address] [facility] - Test 00:00:00 (procedure) [code = Medical Center [id number]] Future Scheduled 2020-10-[address] [facility] Test 00:00:00 (Season Ended) [code = Medic al Center INFLUENZA VACCINE (Season Ended)] Future Scheduled 2020-08-[address] Vania kes - Test 00:00:00 measurement Medical Center (procedure) [code = 91669877] Future Scheduled 2020-02-09 PNEUMOCOCCAL 65+ YRS [facility] - Test 00:00:00 (1 of 1 - Medical Center [id number] PCV13) [code = PNEUMOCOCCAL 65+ YRS (1 of 1 - [id number] PCV13)] Future Scheduled 2020 Medicare IPPE (WELCOME [facility] Test 00:00:00 TO MEDICARE) [code = Medical Center Medicare IPPE (WELCOME TO MEDICARE)] Future Scheduled 2005 SHINGLES VACCINES ([address] [facility] - Test 00:00:00 of 2) [code = SHINGLES Medic al Center VACCINES (1 of 2)] Future Scheduled 1974 DTAP/TDAP/TD VACCINES [facility] - Test 00:00:00 (1 - Tdap) [code = Medical C enter DTAP/TDAP/TD VACCINES (1 - Tdap)] Future Scheduled 1973 HEPATITIS C SCREENING [facility] Test 00:00:00 [code = HEPATITIS C Medical Center SCREENING] Future Scheduled 1967 COVID-19 VACCINE (1) [facility] Test 00:00:00 [code = COVID-[address] VACCINE (1)] Future Scheduled 1965 DIABETIC EYE EXAM [facility] Test 00:00:00 [code = DIABETIC EYE Medical Center EXAM] Future Scheduled [address] [facility] - Test 00:00:00 examination Medical Center (regime/therapy) [code = 106123649] Future Scheduled 1965 Urine screening for [facility] Test 00:00:00 protein (procedure) Medical Center [code = 196401824] Future Scheduled [address] [facility] - Test 00:00:00 malignant neoplasm of Medica Center colon (procedure) [code = 796139255] Future Scheduled 65+ [facility]OCOCCAL [facility] Test VACCINE (1 of 2 - PPSV23) [code = 65+ PNEUMOCOCCAL VACCINE (1 of 2 - PPSV23)] Future Scheduled DIABETES: RETINAL [facility] EXAM [code = DIABETES: RETINAL EYE EXAM] Future Scheduled DIABETIC FOOT [facility] Test [code = DIABETIC FOOT EXAM] Future Scheduled COVID-19 VACCINE (1) [facility] Test [code = COVID-19 VACCINE (1)] Future Scheduled [facility] Test (procedure) [code = 508110654] Future Scheduled COLONOSCOPY SCREENING [facility] Test [code = COLONOSCOPY SCREENING] Future Scheduled SHINGLES VACCINES (#1) [facility] Test [code = SHINGLES VACCINES (#1)] Future Scheduled INFLUENZA VACCINE [facility] Test [code = INFLUENZA VACCINE] Encounters Start End Encounter Admission Attending Care Care Encounter Source Date/Time Date/Time Type Type Clinicians Facility Department ID 2020-07-04 Outpatient SYSTEM, GUILHERME VANEGAS [id number] 11:35:20 JOSE EDUARDO hoffman 2020-06-23 2020-06-23 Outpatient CAITLIN SORENSEN MDA MDA [id number] 13:20:00 23:59:00 JUAN hoffman 2020-06-23 2020-06-23 Outpatient CAITLIN PARADA MDA MDA [id number] 09:30:00 13:19:00 NASEEM hoffman 2020-06-23 2020-06-23 Outpatient CAITLIN MORAN MDA MDA [id number] 08:33:20 10:11:09 SILVANA hoffman 2020-06-23 2020-06-23 Outpatient CAITLIN PARADA MDA MDA [id number] 06:51:35 09:29:00 NASEEM hoffman 2020-01-02 2020-01-02 Outpatient CAITLIN MORAN MDA MDA [id number] 07:30:00 23:59:00 SILVANA hoffman 2020-01-02 2020-01-02 Outpatient CAITLIN MORAN MDA MDA [id number] 09:20:44 10:25:29 SILVANA Raul o n 2019-12-12 2019-12-12 Telephone [facility] [id number] 00:00:00 00:00:00 Kim Crabtree [id number] Eleanor [id number] Professio [phone] [facility] [address] [facility] 2019-12-05 2019-12-05 [facility] [id number] 14:07:04 15:07:40 Visit Kim Crabtree [id number] Eleanor [id number] Professio [phone] [facility] [address] [facility] 2019-12-05 2019-12-05 Orders Doctor ROSS [id number] 00:00:00 00:00:00 Only Unassigned, REMI [id number] [place] [facility] [id number] 2019-09-05 2019-09-05 Outpatient CAITLIN PARADA GUILHERME VANEGAS [id number] 10:00:00 23:59:00 NASEEM hoffman 2019-09-05 2019-09-05 Outpatient CAITLIN MORAN GUILHERME VANEGAS [id number] 09:04:44 10:45:55 SILVANA hoffman 2019-09-05 2019-09-05 Outpatient CAITLIN PARADA GUILHERME VANEGAS [id number] 07:35:44 09:59:00 NASEEM hoffman Results Test Description Test Time Test Comments Results Result Comments Source Tissue Exam 2020-06-03 17:13:00 Test Item Value Reference Range Interpretation Comme nts Case Report (test code = 104) Surgical Pathology Report Case: [id number] Authorizing Provider: Justo Latham, Collected: 05/29/2020 08:36 AM Ordering Location: [facility] Received: 05/29/2020 10:20 AM PERIOPERATIVE SERVICES Pathologist: Herb Ramsey MD Specimen: Plaque, Right carotid artery plaque DIAGNOSIS (test code = 3220) p5fhuJEoYJRak9jyIPKyaERvDxYxFnQjKnYdPe pc dWMxIHtccnRmMVxlcGljOTIwMlxhbnNpXHNwbHRw R0IugyuqSWhwVS8oWP8ufJojeUOjpCYoNARdVwAn m2dsr787dHPet0jmRPEOinosdUl1bHptF19gd0W0 UzieR69mmVUuLMxqaNFtugmfqjUoHGEOSVWRDLzz AUSTSCUOWFDAVRuCQOFJTvMWBkYLBdJSPK7HTYet lVBjFLNFQFYTYkdATNDBKIPSN5FDKUTRB5DFVeLJ DVBHUUXifABtZNkHVOnNHKajVdjGTnpZBXOSYc5X AwJIDOFpud95BCR7IsMsr4A1IZJ3RZMmRVJcl2hs XHIdyHDcGpPpReRcCeVcJofknWKpXFLlTzLzx2kz y134yGTqv3jtIJTfKbW2eFQaOPUajODxA079DOSw DPwho5hfn8HiSVJchQVzg2X0NKIQndbfaLh5uOfv V39jk9M3QklfT2bqWPFnRYYxI0CnAP4vHPChBul7 ZMT4GXE5NAEoMYBtZ0CoXI9uKROmoUGbJZq4r7up ySikDZWuHGE2b8maGQievmXdII3orl3nnAf6l8fd frGtQBJvUYNwfYXPEAXiH5FrdKtiZk8eiKz4gRde CphxCMT6Xhd2QR7jpo05zgx8hQolIZPklfzmZuA9 TFcoISIhvorpCJc1VHtaETHtdAX9XTDfqUEdF2Zs YZBrAG0cazh1RUV2GDysMSMxLoI4DRSywSAeMZPq aXllTKodr536ZRP6CtZhDS3nU6Ybg4B9fA8xdSDe XBAgoCHaCkRxPXGirj9syHAtZTkzj6XpEOB5tvH4 qDRbyFKoUPHaTjA6FEheCU2gfw71YCVqFWL3jm5c zMAawZkosxOejLUcZZsbA0GlEOAvw936NAAtF8Kk WWMrf0V8doByEtWsLEWbcGI3abH4XPKxOE9jzvxo h8zxBBrxYMhiMTLoooM5gfR1BKCelXLsE6RbpK9g KKMbKL5cgopei8wkTSJ6LIuxDINcAQB7YsJpOUMg x7Ofpfk6JtOyc4HupVMhMGdxK49yi370SAJfrmOu X2jltIBribwhwAEtvxtnLNjmwfP3EMQdOMiuqcej EBQxTHklU8rqBuMlNOVpjAcrEDghj3EwSTPaYKOz SwPgcBHjGSNlRoq3LZFgrACnEMFiOcMwY1ljzplq QlGPRMUni4osL3ogzERXoIYdZ3CuCUjjhpGuIVop FUtuMWUnHRH1XW52CbpgJPXrip17 CPT Code(s) (test code = 3147) f8ddjHOuKRRosBU5NvAhTDNlj2aog5XtcXRu cGFy HZwffDQjfjZsqv60eKO9oC00VC3lYFLdEwH4STAh rrW5Rvb4LWKvEKFavVScY828u9pfb5xsjdPsxOA9 aIxdRTHnBJIeFEzzFANvYiObWCfiFUH3UTl2DaZl XHBhcn0= CLINICAL HISTORY (test code = 4968) q9clhNTdKIEiaSL7UvHoTJHvy6rkl0V sdHBncGFy CGgcpNFrjfNnhq17qHC4aK67II8oDFLyDnC4ZZYb bpK6Bpv1GMQpBQAeiBDcW365t1mgp3chrhLygRV7 fXvcUHLzTDAxIIgwHCSyMlXlR9Rpxi4kzKHup7Cx fmvweBNhJ7Gko0LeEJGbdsMrmnzaMXZevz4= SPECIMEN SOURCE (test code = 3377) v2ghoAEgOTIhsVT8IdDcCUYju2whu9Qx dHBncGFy FPsahPMoxhLxam05dDQ0yE75YC1pHGUdVqU9OIOa yyO4Hqf1TYLhBIVpuZBdZ734n3jou2cwbeNpjSD6 fVxwYXJkXHBsYWluXGZzMjAgUGxhcXVlXHBhcn0= GROSS DESCRIPTION (test code = 3366) m2upaBWlPIDgfZMtFmKyKCSsAKYqh7 lcZGVmbGFu [file] YXIgUGlsYXIgQXJndWVsbGVzLCBQQSwgSFQgKEFT M4GkGIMizk0= MICROSCOPIC DESCRIPTION (test code = c7azoQQcWNHgoEJ6PbSmOIBsk6eau9 BsdHBncGFy 3371) GPocxFCpnyOyzr22vJY9gV13WU1lZVHrThG5SSCv alY9Uru7NQUzZRQzrZUpU954e9tlq6lryrWchAM4 pZifSKFyDMWxOStfNSXwKiLeTFYoEa0eyNCyOYMd cn0= [facility] [id number] 17:13:00Surgical Pathology Report Case: [id number] Authorizing Provider: Justo Latham, Collected: 05/29/2020 08:36 AM OrderingLocation: [facility] Received: 05/29/2020 10:20 AM PERIOPERATIVE SERVICES Pathologist: Herb Ramsey MD Specimen: Plaque, Right carotid artery plaque ARTERY, LEFT CAROTID, ENDARTERECTOMY:CALCIFIC ATHEROSCLEROTIC PLAQUELUMINAL FIBRIN THROMBUS Signing Pathologist Direct Phone Line: [phone] signed by Herb Ramsey MD on 06/03/2020 at 5:13 [id number]; [id number] of right carotid artery PlaqueReceived fresh labeled the patient's name, accession number and "right carotid artery plaque" is a 2.0 x 2.4 x 0.4 cm aggregate of ross-yellow tubular, focally calcified plaque. Painting Technician sections are submitted in A1 following decalcification.ANA Velázquez, HT ([facility])PerformedPOC-Glucose [id number] 18:38:00 Test Item Value Reference Range Interpretation Comments POC-Glucose Meter (test 221 mg/dL 70-110 H : TE STED AT [facility] code = 1538) [address] [facility], 770 30: Railroad Firer/Techni yu ID = [id number] for Renetta Mcpherson on Lab Interpretation (test Abnormal code = 68887-9) [facility] [id number] 18:38:00 Test Item Value Reference Range Interpretation Comments POC-GLUCOSE METER 221 mg/dL 70-110 H : TESTED A T [facility] 6720 (BEAKER) (test code = [facility] [place] [facility], 1538) [id number]: Railroad Firer/Techni yu ID = [id number] for Noel Hansen ECG 12 [id number] 08:37:12Interface, External Ris In - 06/01/2020 3:14 PM CDTVentricular Rate 70 BPMAtrial Rate 70 BPMP-R Interval 174 msQRS Duration 112 msQ-T Interval 438 msQTC Calculation(Bazett) 473 msP [place] 47 degreesR [place] -42 degreesT [place] 120 degreesNormal sinus rhythm with sinus arrhythmiaLeft atrial enlargementLeft axis deviationInferior infarct (cited on or before 17-AUG-2017)Anterior infarct (cited on or before 22-AUG-2017)T wave abnormality, consider lateral ischemiaAbnormal ECGWhen compared with ECG of 21-MAY-2020 12:15,Premature ventricular complexes are no longer PresentQRS axis Shifted leftT wave inversionno longer evident in Inferior leadsT wave inversion less evident in Lateral leadsConfirmed by MD Viraj, [facility] ([id number]) on 05/31/2020 8:37:11 [facility] [id number] 21:19:00 Test Item Value Reference Range Interpretation Comments POC-GLUCOSE METER 246 mg/dL 70-110 H : TESTED A T [facility] 6720 (BEAKER) (test code = [place] [facility], 1538) [address]: Railroad Firer/Techni yu ID = [id number] for PE MEG DAMIANLO POCT-GLUCOSE [id number] 17:21:00 Test Item Value Reference Range Interpretation Comments POC-GLUCOSE METER 197 mg/dL 70-110 H : TESTED A T [facility] 6720 (BEAKER) (test code = [place] [facility], 1538) [address]8788: Railroad Firer/Techni yu ID = [id number] for Terrance Echevarriaa POCT-GLUCOSE [id number] 12:47:00 Test Item Value Reference Range Interpretation Comments POC-GLUCOSE METER 239 mg/dL 70-110 H : TESTED A T [facility] 6720 (BEAKER) (test code = [place] [facility], 1538) 10682: Railroad Firer/Techni yu ID = [id number] for KRISTINE BEAL [id number] 10:57:00 Test Item Value Reference Range Interpretation Comments RPR (test code = 99872-6) Nonreactive Nonreactive Lab Interpretation (test code = Normal 10046-9) [facility] 10:57:00 Test Item Value Reference Range Interpretation Comments RPR SCREEN (AKER) (test code = Nonreactive Nonreactive 420) TSH/Free T4 If [id number] 09:20:00 Test Item Value Reference Range Interpretation Comments TSH (test code = 0.460 See_Comment [Automated 63167-1) message] The system which generated this result transmit david reference range : 0.350 - 4.940 uIU/mL. The reference range was not used to interpret this result as normal/abnormal . JENNA (test code = JENNA) Railroad Firer ID - AJILENE C Lab Interpretation Normal (test code = 11190-5) [facility]it[facility] B12 and [id number] 09:20:00 Test Item Value Reference Range Interpretation Comments Vitamin B12 (test 378 pg/mL 213-816 code = 2132-9) Folate (test code = 7.40 ng/mL See_Comment [Automa david 2284-8) message] The system which generated this result transmit david reference range : >=7.00. The reference range was not used to interpret this result as normal/abnormal . JENNA (test code = JENNA) Railroad Firer ID - JAILENE C Lab Interpretation Normal (test code = 22604-7) [facility]SH/FREE T4 IF [id number] 09:20:00 Test Item Value Reference Range Interpretation Comments THYROID STIMULATING HORMONE 0.460 uIU/mL 0.350-4.940 (BEAKER) (test code = 772) Railroad Firer ID - JAILENE CVITAMIN B12 AND [id number] 09:20:00 Test Item Value Reference Range Interpretation Comments VITAMIN B12 (BEAKER) 378 pg/mL 213-816 (test code = 774) FOLATE (BEAKER) 7.40 ng/mL See_Comment [Automated message] (test code = 362) The system which generated this result transmitted ref erence range: >=7.00. The reference range was not used to interpr et this result as normal/abnormal . Railroad Firer ID - JAILENE CPOCT-GLUCOSE [id number] 08:53:00 Test Item Value Reference Range Interpretation Comments POC-GLUCOSE METER 261 mg/dL 70-110 H : TESTED A T [facility] 6720 (BEAKER) (test code = [place], 1538) 49829: Railroad Firer/Techni yu ID = [id number] for KRISTINE BEAL Hemoglobin [id number] 08:39:00 Test Item Value Reference Range Interpretation Comments Hemoglobin A1C (test code = 4548-4) 14.5 % 4.3-6.1 H Lab Interpretation (test code = Abnormal 54379-0) [facility]MOGLOB[facility] [id number] 08:39:00 Test Item Value Reference Range Interpretation Comments HEMOGLOBIN A1C (BEAKER) (test code = 14.5 % 4.3-6.1 H 368) Lipid [id number] 07:49:00 Test Item Value Reference Range Interpretation Comments Triglycerides (test 221 mg/dL Specimen code = 2571-8) slightly hemolyzed Cholesterol (test 215 mg/dL Specimen code = 2093-3) slightly hemolyzed HDL (test code = 30 mg/dL 5-9) LDL Calculated (test 141 mg/dL code = 74869-7) JENNA (test code = Triglyceride JENNA) Reference Range: Low Risk <150 Borderline 150-199 High Risk 200-499 Very High Risk >=500 Cholesterol Reference Range: Low Risk <200 Borderline 200-239 High Risk >240 HDL Cholesterol Reference Range: Low Risk >=60 High Risk <40 LDL Cholesterol Reference Range: Optimal <100 Near Optimal 100-129 Borderline 130-159 High 160-189 Very High >=190 Railroad Firer ID - EDASI [facility]apiLIPID [id number] 07:49:00 Test Item Value Reference Range Interpretation Comments TRIGLYCERIDES (BEAKER) 221 mg/dL Speci men slightly (test code = 540) hemolyzed CHOLESTEROL (BEAKER) 215 mg/dL Specime n slightly (test code = 631) hemolyzed HDL CHOLESTEROL (BEAKER) 30 mg/dL (test code = 976) LDL CHOLESTEROL 141 mg/dL CALCULATED (BEAKER) (test code = 633) Triglyceride Reference Range: Low Risk <150 Borderline 150-199 High Risk 200-499 Very High Risk >=500Cholesterol Reference Range: Low Risk <200 Borderline 200-239 High Risk >240HDL Cholesterol Reference Range: Low Risk >=60 High Risk <40LDL Cholesterol Reference Range: Optimal <100 Near Optimal 100-129 Borderline 130-159 High 160-189 Very High >=190 Railroad Firer ID - EDASIBasic Metabolic [id number] 07:08:00 Test Item Value Reference Range Interpretation Comments Sodium (test code = 138 meq/L 535-002 2942-2) Potassium (test code = 4.3 meq/L 3.5-5.1 Speci men slightly 2823-3) hemolyzed Chloride (test code = 103 meq/L 98-107 2075-0) CO2 (test code = 27 meq/L 22-29 2028-9) BUN (test code = 12 mg/dL 7-21 3094-0) Creatinine (test code 0.89 mg/dL 0.57-1.25 Specim en slightly = 2160-0) hemolyzed Glucose (test code = 268 mg/dL 70-105 H 2345-7) Calcium (test code = 8.5 mg/dL 8.4-10.2 70068-5) EGFR (test code = 86 mL/min/1.73 [place] [address]-4) NOT ACCURATE CREATININE CLEARANCE IN PREDICTING GLOMERULAR FILTRATION RATE . ESTIMATED GFR I S NOT APPLICABLE FOR DIALYSIS PATIENTS. JENNA (test code = JENNA) Railroad Firer ID - EDASI Lab Interpretation Abnormal (test code = 26318-0) [facility]api[facility]esium2021-04-23 07:08:00 Test Item Value Reference Range Interpretation Comments Magnesium (test code = 1.7 mg/dL 1.6-2.6 Speci men 64683-6) slightly hemolyzed JENNA (test code = JENNA) Railroad Firer ID - EDASI Lab Interpretation Normal (test code = 94136-3) [facility]NESIUM2021-04-23 07:08:00 Test Item Value Reference Range Interpretation Comments MAGNESIUM (BEAKER) 1.7 mg/dL 1.6-2.6 Specimen slightly (test code = 627) hemolyzed Railroad Firer ID - EDASIBASIC METABOLIC [id number] 07:08:00 Test Item Value Reference Range Interpretation Comments SODIUM (BEAKER) 138 meq/L 136-145 (test code = 381) POTASSIUM (BEAKER) 4.3 meq/L 3.5-5.1 Specimen slightly (test code = 379) hemolyzed CHLORIDE (BEAKER) 103 meq/L 98-107 (test code = 382) CO2 (BEAKER) (test 27 meq/L 22-29 code = 355) BLOOD UREA NITROGEN 12 mg/dL 7-21 (BEAKER) (test code = 354) CREATININE (BEAKER) 0.89 mg/dL 0.57-1.25 Specimen slightly (test code = 358) hemolyzed GLUCOSE RANDOM 268 mg/dL 70-105 H (BEAKER) (test code = 652) CALCIUM (BEAKER) 8.5 mg/dL 8.4-10.2 (test code = 697) EGFR (BEAKER) (test 86 mL/min/1.73 ESTIMA DAVID GFR IS code = 1092) sq m NOT ACCURATE CREATININE CLEARANCE IN PREDICTING GLOMERULAR FILTRATION RATE . ESTIMATED GFR I S NOT APPLICABLE FOR DIALYSIS PATIEN TS. Railroad Firer ID - EDASICBC with platelet count + automated [id number] 06:33:00 Test Item Value Reference Range Interpretation Comments WBC (test code = 6690-2) 10.7 See_Comment H [A utomated message] The system [employer] generated this result transmitted ref erence range: 3.5 - 10 .5 K/L. The refe rence range was not u sed to interpret this result as normal/abnor mal. RBC (test code = 789-8) 5.20 See_Comment [Au tomated message] The system [employer] generated this result transmitted ref erence range: 4.63 - 6 .08 M/L. The refe rence range was not u sed to interpret this result as normal/abnor mal. MCHC (test code = 786-4) 32.6 See_Comment [A utomated message] The system [employer] generated this result transmitted ref erence range: 32.3 - 3 6.5 GM/DL. The refe rence range was not u sed to interpret this result as normal/abnor mal. Hematocrit (test code = 48.1 % 40.1-51 4544-3) MCV (test code = 787-2) 92.5 fL 79-92.2 H MCH (test code = 785-6) 30.2 pg 25.7-32.2 RDW (test code = 788-0) 13.1 % 11.6-14.4 Platelets (test code = 148 See_Comment L [Aut omated message] 777-3) The system [employer] generated this result transmitted ref erence range: 150 - 45 0 K/CU MM. The referen ce range was not u sed to interpret this result as normal/abnor mal. MPV (test code = 11.7 fL 9.4-12.4 65927-5) nRBC (test code = 413) 0 See_Comment [Aut omated message] The system [employer] generated this result transmitted ref erence range: 0 - 0 /1 00 WBC. The refere nce range was not u sed to interpret this result as normal/abnor mal. % Neutros (test code = 64 % 429) % Lymphs (test code = 28 % 430) % Monos (test code = 5 % 431) % Eos (test code = 432) 2 % % Baso (test code = 437) 1 % # Neutros (test code = 6.90 See_Comment H [Aut omated message] 670) The system [employer] generated this result transmitted ref erence range: 1.78 - 5 .38 K/L. The refe rence range was not u sed to interpret this result as normal/abnor mal. # Lymphs (test code = 2.96 See_Comment [Auto mated message] 414) The system [employer] generated this result transmitted ref erence range: 1.32 - 3 .57 K/L. The refe rence range was not u sed to interpret this result as normal/abnor mal. # Monos (test code = 0.58 See_Comment [Autom ated message] 415) The system [employer] generated this result transmitted ref erence range: 0.30 - 0 .82 K/L. The refe rence range was not u sed to interpret this result as normal/abnor mal. # Eos (test code = 416) 0.20 See_Comment [Au tomated message] The system [employer] generated this result transmitted ref erence range: 0.04 - 0 .54 K/L. The refe rence range was not u sed to interpret this result as normal/abnor mal. # Baso (test code = 417) 0.05 See_Comment [A utomated message] The system [employer] generated this result transmitted ref erence range: 0.01 - 0 .08 K/L. The refe rence range was not u sed to interpret this result as normal/abnor mal. Immature 0 % 0-1 Granulocytes-Relative (test code = 2801) Lab Interpretation (test Abnormal code = 12683-4) [facility] W/PLT COUNT & AUTO [id number] 06:33:00 Test Item Value Reference Range Interpretation Comments WHITE BLOOD CELL COUNT (BEAKER) 10.7 K/ L 3.5-10.5 H (test code = 775) RED BLOOD CELL COUNT (BEAKER) 5.20 M/ L 4.63-6.08 (test code = 761) HEMOGLOBIN (BEAKER) (test code = 15.7 GM/DL 13.7-17.5 410) HEMATOCRIT (BEAKER) (test code = 48.1 % 40.1-51.0 411) MEAN CORPUSCULAR VOLUME (BEAKER) 92.5 fL 79.0-92.2 H (test code = 753) MEAN CORPUSCULAR HEMOGLOBIN 30.2 pg 25.7-32.2 (BEAKER) (test code = 751) MEAN CORPUSCULAR HEMOGLOBIN CONC 32.6 GM/DL 32.3-36.5 (BEAKER) (test code = 752) RED CELL DISTRIBUTION WIDTH 13.1 % 11.6-14.4 (BEAKER) (test code = 412) PLATELET COUNT (BEAKER) (test 148 K/CU MM 150-450 L code = 756) MEAN PLATELET VOLUME (BEAKER) 11.7 fL 9.4-12.4 (test code = 754) NUCLEATED RED BLOOD CELLS 0 /100 WBC 0-0 (BEAKER) (test code = 413) NEUTROPHILS RELATIVE PERCENT 64 % (BEAKER) (test code = 429) LYMPHOCYTES RELATIVE PERCENT 28 % (BEAKER) (test code = 430) MONOCYTES RELATIVE PERCENT 5 % (BEAKER) (test code = 431) EOSINOPHILS RELATIVE PERCENT 2 % (BEAKER) (test code = 432) BASOPHILS RELATIVE PERCENT 1 % (BEAKER) (test code = 437) NEUTROPHILS ABSOLUTE COUNT 6.90 K/ L 1.78-5.38 H (BEAKER) (test code = 670) LYMPHOCYTES ABSOLUTE COUNT 2.96 K/ L 1.32-3.57 (BEAKER) (test code = 414) MONOCYTES ABSOLUTE COUNT (BEAKER) 0.58 K/ L 0.30-0.82 (test code = 415) EOSINOPHILS ABSOLUTE COUNT 0.20 K/ L 0.04-0.54 (BEAKER) (test code = 416) BASOPHILS ABSOLUTE COUNT (BEAKER) 0.05 K/ L 0.01-0.08 (test code = 417) IMMATURE GRANULOCYTES-RELATIVE 0 % 0-1 PERCENT (BEAKER) (test code = 2801) POCT-GLUCOSE [id number] 21:35:00 Test Item Value Reference Range Interpretation Comments POC-GLUCOSE METER 212 mg/dL 70-110 H : TESTED A T [facility] 6720 (BEAKER) (test code = [facility], 1538) 898[address]: Railroad Firer/Techni yu ID = [id number] for MO DELMER FIELD POCT-GLUCOSE [id number] 17:51:00 Test Item Value Reference Range Interpretation Comments POC-GLUCOSE METER 238 mg/dL 70-110 H : TESTED A T [facility] 6720 (BEAKER) (test code = [facility] [employer] [facility], 1538) 05474: Railroad Firer/Techni yu ID = [id number] for PH ILIP, [place] BASIC METABOLIC [id number] 17:13:00 Test Item Value Reference Range Interpretation Comments SODIUM (BEAKER) 138 meq/L 136-145 (test code = 381) POTASSIUM (BEAKER) 5.1 meq/L 3.5-5.1 Specimen markedly (test code = 379) hemolyzed CHLORIDE (BEAKER) 103 meq/L 98-107 (test code = 382) CO2 (BEAKER) (test 24 meq/L 22-29 code = 355) BLOOD UREA NITROGEN 14 mg/dL 7-21 (BEAKER) (test code = 354) CREATININE (BEAKER) 0.85 mg/dL 0.57-1.25 Specimen markedly (test code = 358) hemolyzed GLUCOSE RANDOM 233 mg/dL 70-105 H (BEAKER) (test code = 652) CALCIUM (BEAKER) 8.2 mg/dL 8.4-10.2 L (test code = 697) EGFR (BEAKER) (test 90 mL/min/1.73 ESTIMA DAVID GFR IS code = 1092) sq m NOT ACCURATE CREATININE CLEARANCE IN PREDICTING GLOMERULAR FILTRATION RATE . ESTIMATED GFR I S NOT APPLICABLE FOR DIALYSIS PATIEN TS. Railroad Firer ID - [id number] 16:00:00 Test Item Value Reference Range Interpretation Comments Glucose (test code = 2345-7) 233 mg/dL 70-105 H JENNA (test code = JENNA) Railroad Firer ID - DB Lab Interpretation (test Abnormal code = 06731-7) [facility]assium-[id number] 16:00:00 Test Item Value Reference Range Interpretation Comments Potassium (test code = 5.1 meq/L 3.5-5.1 Speci men 2823-3) markedly hemolyzed JENNA (test code = JENNA) Railroad Firer ID - DB Lab Interpretation Normal (test code = 63366-8) [facility]2021-04-22 16:00:00 Test Item Value Reference Range Interpretation Comments POTASSIUM (BEAKER) 5.1 meq/L 3.5-5.1 Specimen markedly (test code = 379) hemolyzed Railroad Firer ID - [id number] 16:00:00 Test Item Value Reference Range Interpretation Comments GLUCOSE RANDOM (BEAKER) (test code 233 mg/dL 70-105 H = 652) Railroad Firer ID - DBLactic Acid, [id number] 15:58:00 Test Item Value Reference Range Interpretation Comments Lactate, Art (test 1.6 mmol/L 0.5-2.2 Specimen code = 2874) slightly hemolyzed JENNA (test code = JENNA) Railroad Firer ID - DB Lab Interpretation Normal (test code = 02927-6) [facility]CT[facility] ACID, [id number] 15:58:00 Test Item Value Reference Range Interpretation Comments LACTATE BLOOD 1.6 mmol/L 0.5-2.2 Specimen sligh tly ARTERIAL (2) (BEAKER) hemoly zed (test code = 2874) Railroad Firer ID - DBPOCT-GLUCOSE [id number] 13:56:00 Test Item Value Reference Range Interpretation Comments POC-GLUCOSE METER 264 mg/dL 70-110 H : TESTED A T [facility] 6720 (BEAKER) (test code = [place], 1538) 97145: Railroad Firer/Techni yu ID = [id number] for MARY BETH BLANCA POCT-GLUCOSE [id number] 13:10:00 Test Item Value Reference Range Interpretation Comments POC-GLUCOSE METER 302 mg/dL 70-110 H : TESTED A T [facility] 6720 (BEAKER) (test code = [place] [facility], 1538) 66247: Railroad Firer/Techni yu ID = [id number] for MARY BETH BLANCA POCT-GLUCOSE [id number] 13:10:00 Test Item Value Reference Range Interpretation Comments POC-GLUCOSE METER 388 mg/dL 70-110 H : TESTED A T [facility] 6720 (BEAKER) (test code = [facility] [place] [facility], 1538) 46963: Railroad Firer/Techni yu ID = [id number] for MARY BETH BLANCA RAD, CHEST, 1 VIEW, NON [id number] 11:52:00Reason for exam:->s/p cv surgerySH[facility]: VANDANA MONTES : 1955 Sex: MFINAL REPORT RAD, CHEST, 1 VIEW, NON DEPT INDICATION: s/p cv surgery COMPARISON: Prior day's exam FINDINGS: Portable frontal view of the chest. IMPRESSION: Support Lines: Pacer device Lungs and pleura: Mild diffuse interstitial thickening is unchanged. No pneumothorax.Heart and mediastinum: Stable contours.Additional findings: None. Signed: Alayna Murphy Verified Date/Time: 05/29/2020 11:52:15 Reading Location: [facility] Radiology Reading Room XR chest 1 view portable / [id number] 11:52:00 Interface, External Ris In - 05/29/2020 11:54 AM CDTFINAL REPORT RAD, CHEST, 1 VIEW, NON DEPT INDICATION: s/p cv surgery COMPARISON: Prior day's exam FINDINGS: Portable frontal view of the chest. IMPRESSION: Support Lines: Pacer device Lungs and pleura: Mild diffuse interstitial thickening is unchanged. No pneumothorax.Heart and mediastinum: Stable contours.Additional findings: None. Signed: Alayna Murphy MDReport Verified Date/Time: 05/29/2020 11:52:15 Reading Location:[facility] Radiology Reading [facility]IC [id number] 10:38:00 Test Item Value Reference Range Interpretation Comments SODIUM (BEAKER) 136 meq/L 136-145 (test code = 381) POTASSIUM (BEAKER) 4.0 meq/L 3.5-5.1 Specimen slightly (test code = 379) hemolyzed CHLORIDE (BEAKER) 104 meq/L 98-107 (test code = 382) CO2 (BEAKER) (test 19 meq/L 22-29 L code = 355) BLOOD UREA NITROGEN 16 mg/dL 7-21 (BEAKER) (test code = 354) CREATININE (BEAKER) 1.06 mg/dL 0.57-1.25 Specimen slightly (test code = 358) hemolyzed GLUCOSE RANDOM 413 mg/dL 70-105 HH (BEAKER) (test code = 652) CALCIUM (BEAKER) 8.4 mg/dL 8.4-10.2 (test code = 697) EGFR (BEAKER) (test 70 mL/min/1.73 ESTIMA DAVID GFR IS code = 1092) sq m NOT ACCURATE CREATININE CLEARANCE IN PREDICTING GLOMERULAR FILTRATION RATE . ESTIMATED GFR I S NOT APPLICABLE FOR DIALYSIS PATIEN TS. Railroad Firer ID - RJ [id number] 10:33:00 Test Item Value Reference Range Interpretation Comments MAGNESIUM (BEAKER) 1.7 mg/dL 1.6-2.6 Specimen slightly (test code = 627) hemolyzed Railroad Firer ID - RJ MLACTIC ACID, [id number] 10:30:00 Test Item Value Reference Range Interpretation Comments LACTATE BLOOD 2.4 mmol/L 0.5-2.2 H Specimen sligh tly ARTERIAL (2) (BEAKER) hemoly zed (test code = 2874) Railroad Firer ID - MARY FCBC (Hemogram only)2020-05-29 10:24:00 Test Item Value Reference Range Interpretation Comments WBC (test code = 6690-2) 13.3 See_Comment H [A utomated message] The system [employer] generated this result transmitted ref erence range: 3.5 - 10 .5 K/L. The refe rence range was not u sed to interpret this result as normal/abnor mal. RBC (test code = 789-8) 5.52 See_Comment [Au tomated message] The system [employer] generated this result transmitted ref erence range: 4.63 - 6 .08 M/L. The refe rence range was not u sed to interpret this result as normal/abnor mal. MCHC (test code = 786-4) 33.1 See_Comment [A utomated message] The system [employer] generated this result transmitted ref erence range: 32.3 - 3 6.5 GM/DL. The refe rence range was not u sed to interpret this result as normal/abnor mal. Hematocrit (test code = 50.2 % 40.1-51 4544-3) MCV (test code = 787-2) 90.9 fL 79-92.2 MCH (test code = 785-6) 30.1 pg 25.7-32.2 RDW (test code = 788-0) 13.1 % 11.6-14.4 Platelets (test code = 172 See_Comment [Aut omated message] 777-3) The system [employer] generated this result transmitted ref erence range: 150 - 45 0 K/CU MM. The referen ce range was not u sed to interpret this result as normal/abnor mal. MPV (test code = 11.4 fL 9.4-12.4 45863-5) nRBC (test code = 413) 0 See_Comment [Aut omated message] The system [employer] generated this result transmitted ref erence range: 0 - 0 /1 00 WBC. The refere nce range was not u sed to interpret this result as normal/abnor mal. Lab Interpretation (test Abnormal code = 11492-9) [facility] (HEMOGRAM ONLY)2020-05-29 10:24:00 Test Item Value Reference Range Interpretation Comments WHITE BLOOD CELL COUNT (BEAKER) 13.3 K/ L 3.5-10.5 H (test code = 775) RED BLOOD CELL COUNT (BEAKER) 5.52 M/ L 4.63-6.08 (test code = 761) HEMOGLOBIN (BEAKER) (test code = 16.6 GM/DL 13.7-17.5 410) HEMATOCRIT (BEAKER) (test code = 50.2 % 40.1-51.0 411) MEAN CORPUSCULAR VOLUME (BEAKER) 90.9 fL 79.0-92.2 (test code = 753) MEAN CORPUSCULAR HEMOGLOBIN 30.1 pg 25.7-32.2 (BEAKER) (test code = 751) MEAN CORPUSCULAR HEMOGLOBIN CONC 33.1 GM/DL 32.3-36.5 (BEAKER) (test code = 752) RED CELL DISTRIBUTION WIDTH 13.1 % 11.6-14.4 (BEAKER) (test code = 412) PLATELET COUNT (BEAKER) (test 172 K/CU MM 150-450 code = 756) MEAN PLATELET VOLUME (BEAKER) 11.4 fL 9.4-12.4 (test code = 754) NUCLEATED RED BLOOD CELLS 0 /100 WBC 0-0 (BEAKER) (test code = 413) Blood gas, [id number] 10:11:00 Test Item Value Reference Range Interpretation Comments pH, Arterial (test code 7.41 7.35-7.45 = 2744-1) pCO2, Arterial (test 34 See_Comment L [Autom ated code = 2018-) message] The system which generated this result transmitted reference range : 35 - 45 mm Hg. The reference range was not used to interpret this result as normal/abnormal . pO2, Arterial (test 98 See_Comment H [Automa david code = 2703-7) message] The system which generated this result transmitted reference range : 80 - 90 mm Hg. The reference range was not used to interpret this result as normal/abnormal . O2 Sat, Arterial (test 97.7 % 96-97 H code = 2708-6) HCO3, Arterial (test 22 mmol/L 21-29 code = 1960-4) Base Excess, Arterial -2.5 mmol/L -2-3 L (test code = 1925-7) Patient Temperature 36.3 (test code = 8310-5) FIO2 (test code = 1819) 44 Lab Interpretation Abnormal (test code = 33794-7) [facility], [id number] 10:11:00 Test Item Value Reference Range Interpretation Comments PH ARTERIAL (BEAKER) (test code = 7.41 7.35-7.45 383) PCO2 ARTERIAL (BEAKER) (test code 34 mm Hg 35-45 L = 384) PO2 ARTERIAL (BEAKER) (test code 98 mm Hg 80-90 H = 385) O2 SATURATION ARTERIAL (BEAKER) 97.7 % 96.0-97.0 H (test code = 386) HCO3 ARTERIAL (BEAKER) (test code 22 mmol/L -29 = 388) BASE EXCESS ARTERIAL (BEAKER) -2.5 mmol/L -2.0-3.0 L (test code = 387) PATIENT TEMPERATURE (BEAKER) 36.3 (test code = 1818) FIO2 (BEAKER) (test code = 1819) 44.0 HGB/HCT (H&H)-Stat [id number] 09:16:00 Test Item Value Reference Range Interpretation Comments Hemoglobin (test code = 16.9 See_Comment H [Au tomated message] 786-4) The system [employer] generated this result transmitted ref erence range: 13.0 - 1 6.8 GM/DL. The refe rence range was not u sed to interpret this result as normal/abnor mal. Hematocrit (test code = 50.0 % 40-50 4544-3) Lab Interpretation (test Abnormal code = 23806-4) [facility]-Stat [id number] 09:16:00 Test Item Value Reference Range Interpretation Comments Glucose (test code = 2345-7) 321 mg/dL 70-110 H Lab Interpretation (test code = Abnormal 14303-9) [facility]apiPotassium-Stat [id number] 09:16:00 Test Item Value Reference Range Interpretation Comments Potassium (test code = 2823-3) 3.3 meq/L 3.6-5.5 L Lab Interpretation (test code = Abnormal 35998-8) [facility]OOD [facility], [id number] 09:16:00 Test Item Value Reference Range Interpretation Comments PH ARTERIAL (BEAKER) (test code = 7.25 7.35-7.45 L 383) PCO2 ARTERIAL (BEAKER) (test code 57 mm Hg 35-45 H = 384) PO2 ARTERIAL (BEAKER) (test code 77 mm Hg 80-90 L = 385) O2 SATURATION ARTERIAL (BEAKER) 93.8 % 96.0-97.0 L (test code = 386) HCO3 ARTERIAL (BEAKER) (test code 25 mmol/L 21-29 = 388) BASE EXCESS ARTERIAL (BEAKER) -4.3 mmol/L -2.0-3.0 L (test code = 387) PATIENT TEMPERATURE (BEAKER) 36.0 (test code = 1818) FIO2 (BEAKER) (test code = 1819) 70.0 POTASSIUM-STAT [id number] 09:16:00 Test Item Value Reference Range Interpretation Comments POTASSIUM (BEAKER) (test code = 3.3 meq/L 3.6-5.5 L 379) GLUCOSE-STAT [id number] 09:16:00 Test Item Value Reference Range Interpretation Comments GLUCOSE RANDOM (BEAKER) (test code 321 mg/dL 70-110 H = 652) HGB/HCT (H&H) - STAT [id number] 09:16:00 Test Item Value Reference Range Interpretation Comments HEMOGLOBIN (BEAKER) (test code = 16.9 GM/DL 13.0-16.8 H 410) HEMATOCRIT (BEAKER) (test code = 50.0 % 40.0-50.0 411) Sodium Na-Stat [id number] 09:14:00 Test Item Value Reference Range Interpretation Comments Sodium (test code = 2951-2) 139 meq/L 136-145 Lab Interpretation (test code = Normal 38390-3) [facility] [id number] 09:14:00 Test Item Value Reference Range Interpretation Comments SODIUM (BEAKER) (test code = 381) 139 meq/L 136-145 Calcium, [id number] 08:23:00 Test Item Value Reference Range Interpretation Comments Calcium, Ion (test code = 1994-3) 1.13 mmol/L 1.12-1.27 pH, Blood (test code = 15258-3) 7.28 [facility] [id number] 08:23:00 Test Item Value Reference Range Interpretation Comments PH ARTERIAL (BEAKER) (test code = 7.30 7.35-7.45 L 383) PCO2 ARTERIAL (BEAKER) (test code 53 mm Hg 35-45 H = 384) PO2 ARTERIAL (BEAKER) (test code 69 mm Hg 80-90 L = 385) O2 SATURATION ARTERIAL (BEAKER) 92.9 % 96.0-97.0 L (test code = 386) HCO3 ARTERIAL (BEAKER) (test code 26 mmol/L 21-29 = 388) BASE EXCESS ARTERIAL (BEAKER) -2.2 mmol/L -2.0-3.0 L (test code = 387) PATIENT TEMPERATURE (BEAKER) 36.1 (test code = 1818) FIO2 (BEAKER) (test code = 1819) 86.0 GLUCOSE-STAT [id number] 08:23:00 Test Item Value Reference Range Interpretation Comments GLUCOSE RANDOM (BEAKER) (test code 365 mg/dL 70-110 H = 652) HGB/HCT (H&H) - STAT [id number] 08:23:00 Test Item Value Reference Range Interpretation Comments HEMOGLOBIN (BEAKER) (test code = 18.1 GM/DL 13.0-16.8 H 410) HEMATOCRIT (BEAKER) (test code = 53.0 % 40.0-50.0 H 411) CALCIUM, [id number] 08:23:00 Test Item Value Reference Range Interpretation Comments CALCIUM IONIZED (BEAKER) (test 1.13 mmol/L 1.12-1.27 code = 698) PH, BLOOD (BEAKER) (test code = 7.28 1810) SODIUM NA-STAT [id number] 08:22:00 Test Item Value Reference Range Interpretation Comments SODIUM (BEAKER) (test code = 381) 139 meq/L 136-145 POTASSIUM-STAT [id number] 08:22:00 Test Item Value Reference Range Interpretation Comments POTASSIUM (BEAKER) (test code = 3.9 meq/L 3.6-5.5 379) Type and screen, [id number] 07:30:00 Test Item Value Reference Range Interpretation Comments ABO/RH AUTOMATED (BEAKER) (test O POSITIVE code = 2260) Ab Scrn (test code = 890-4) NEGATIVE [facility] [id number] 06:38:00 Test Item Value Reference Range Interpretation Comments POC-GLUCOSE METER 395 mg/dL 70-110 H : TESTED A T [facility] 6720 (BEAKER) (test code [facility], = 1538) [address]: Railroad Firer/Techni yu ID = [id number] for JORD AN, LACRYSTAL BASIC METABOLIC [id number] 13:06:00 Test Item Value Reference Range Interpretation Comments SODIUM (BEAKER) 138 meq/L 136-145 (test code = 381) POTASSIUM (BEAKER) 4.6 meq/L 3.5-5.1 (test code = 379) CHLORIDE (BEAKER) 101 meq/L 98-107 (test code = 382) CO2 (BEAKER) (test 27 meq/L 22-29 code = 355) BLOOD UREA NITROGEN 10 mg/dL 7-21 (BEAKER) (test code = 354) CREATININE (BEAKER) 1.15 mg/dL 0.57-1.25 (test code = 358) GLUCOSE RANDOM 394 mg/dL 70-105 H (BEAKER) (test code = 652) CALCIUM (BEAKER) 9.3 mg/dL 8.4-10.2 (test code = 697) EGFR (BEAKER) (test 64 mL/min/1.73 ESTIMA DAVID GFR IS code = 1092) sq m NOT ACCURATE CREATININE CLEARANCE IN PREDICTING GLOMERULAR FILTRATION RATE . ESTIMATED GFR I S NOT APPLICABLE FOR DIALYSIS PATIEN TS. Railroad Firer ID - PIAYA Donaothrombin time/[id number] 13:03:00 Test Item Value Reference Interpretation Comments Range Protime (test code = 12.3 See_Comment [Autom ated 5902-2) message] The system which generated this result transmitted reference range : 11.9 - 14.2 seconds. The reference range was not used to interpret this result as normal/abnormal . INR (test code = 0.94 See_Comment [Automated 0963-6) message] The system which generated this result transmitted reference range : <=5.90. The reference range was not used to interpret this result as normal/abnormal . JENNA (test code = Effective 07/05/2018: JENNA) PT Reference Range ChangeNew: 11.9-14.2 Previous: 11.7-14.7 RECOMMENDED COUMADIN/WARFARIN INR THERAPY RANGESSTANDARD DOSE: 2.0-3.0 Includes: PROPHYLAXIS for venous thrombosis, systemic embolization; TREATMENT for venous thrombosis and/or pulmonary embolus.HIGH RISK: Target INR is 2.5-3.5 for patients wiht mechanical heart valves. Lab Interpretation Normal (test code = 94311-2) [facility]PROT[facility]OM[facility]/[id number] 13:03:00 Test Item Value Reference Range Interpretation Comments PROTIME (BEAKER) 12.3 seconds 11.9-14.2 (test code = 759) INR (BEAKER) (test 0.94 See_Comment [Automat ed message] code = 370) The system [facility] generated this result transmitted ref erence range: <=5.90. The reference range was not used to int erpret this result as normal/abnormal . Effective 07/05/2018: PT Reference Range ChangeNew: 11.9-14.2 Previous: 11.7- 14.7RECOMMENDED COUMADIN/WARFARIN INR THERAPY RANGESSTANDARD DOSE: 2.0-3.0 Includes: PROPHYLAXIS for venous thrombosis, systemic embolization; TREATMENT for venous thrombosis and/or pulmonary embolus.HIGH RISK: Target INR is2.5-3.5 for patients wiht mechanical heart valves.CBC W/PLT COUNT & AUTO [id number] 12:53:00 Test Item Value Reference Range Interpretation Comments WHITE BLOOD CELL COUNT (BEAKER) 10.8 K/ L 3.5-10.5 H (test code = 775) RED BLOOD CELL COUNT (BEAKER) 5.80 M/ L 4.63-6.08 (test code = 761) HEMOGLOBIN (BEAKER) (test code = 17.8 GM/DL 13.7-17.5 H 410) HEMATOCRIT (BEAKER) (test code = 53.0 % 40.1-51.0 H 411) MEAN CORPUSCULAR VOLUME (BEAKER) 91.4 fL 79.0-92.2 (test code = 753) MEAN CORPUSCULAR HEMOGLOBIN 30.7 pg 25.7-32.2 (BEAKER) (test code = 751) MEAN CORPUSCULAR HEMOGLOBIN CONC 33.6 GM/DL 32.3-36.5 (BEAKER) (test code = 752) RED CELL DISTRIBUTION WIDTH 13.2 % 11.6-14.4 (BEAKER) (test code = 412) PLATELET COUNT (BEAKER) (test 149 K/CU MM 150-450 L code = 756) MEAN PLATELET VOLUME (BEAKER) 11.4 fL 9.4-12.4 (test code = 754) NUCLEATED RED BLOOD CELLS 0 /100 WBC 0-0 (BEAKER) (test code = 413) NEUTROPHILS RELATIVE PERCENT 59 % (BEAKER) (test code = 429) LYMPHOCYTES RELATIVE PERCENT 32 % (BEAKER) (test code = 430) MONOCYTES RELATIVE PERCENT 6 % (BEAKER) (test code = 431) EOSINOPHILS RELATIVE PERCENT 2 % (BEAKER) (test code = 432) BASOPHILS RELATIVE PERCENT 1 % (BEAKER) (test code = 437) NEUTROPHILS ABSOLUTE COUNT 6.33 K/ L 1.78-5.38 H (BEAKER) (test code = 670) LYMPHOCYTES ABSOLUTE COUNT 3.47 K/ L 1.32-3.57 (BEAKER) (test code = 414) MONOCYTES ABSOLUTE COUNT (BEAKER) 0.61 K/ L 0.30-0.82 (test code = 415) EOSINOPHILS ABSOLUTE COUNT 0.26 K/ L 0.04-0.54 (BEAKER) (test code = 416) BASOPHILS ABSOLUTE COUNT (BEAKER) 0.07 K/ L 0.01-0.08 (test code = 417) IMMATURE GRANULOCYTES-RELATIVE 0 % 0-1 PERCENT (BEAKER) (test code = 2801) BLOOD [id number] 16:48:00 Test Item Value Reference Range Interpretation Comments CULTURE (BEAKER) (test No growth in 5 days code = 1095) BLOOD [id number] 16:48:00 Test Item Value Reference Range Interpretation Comments CULTURE (BEAKER) (test No growth in 5 days code = 1095) [id number] 12:53:00 Test Item Value Reference Range Interpretation Comments MAGNESIUM (BEAKER) (test code = 2.4 mg/dL 1.6-2.6 627) BASIC METABOLIC [id number] 12:53:00 Test Item Value Reference Range Interpretation Comments SODIUM (BEAKER) 136 meq/L 136-145 (test code = 381) POTASSIUM (BEAKER) 3.3 meq/L 3.5-5.1 L (test code = 379) CHLORIDE (BEAKER) 96 meq/L 98-107 L (test code = 382) CO2 (BEAKER) (test 30 meq/L 22-29 H code = 355) BLOOD UREA NITROGEN 12 mg/dL 7-21 (BEAKER) (test code = 354) CREATININE (BEAKER) 0.88 mg/dL 0.57-1.25 (test code = 358) GLUCOSE RANDOM 241 mg/dL 70-105 H (BEAKER) (test code = 652) CALCIUM (BEAKER) 8.6 mg/dL 8.4-10.2 (test code = 697) EGFR (BEAKER) (test 88 mL/min/1.73 ESTIMA DAVID GFR IS code = 1092) sq m NOT ACCURATE CREATININE CLEARANCE IN PREDICTING GLOMERULAR FILTRATION RATE . ESTIMATED GFR I S NOT APPLICABLE FOR DIALYSIS PATIEN TS. POCT-GLUCOSE [id number] 12:15:00 Test Item Value Reference Range Interpretation Comments POC-GLUCOSE METER 277 mg/dL 70-[address] [facility] 6720 (BEAKER) (test code = [place] 1538) [address] POCT-GLUCOSE [id number] 08:07:00 Test Item Value Reference Range Interpretation Comments POC-GLUCOSE METER 184 mg/dL 70-[address] [facility] 6720 (BEAKER) (test code = [place] 1538) [address] BASIC METABOLIC [id number] 05:15:00 Test Item Value Reference Range Interpretation Comments SODIUM (BEAKER) 139 meq/L 136-145 (test code = 381) POTASSIUM (BEAKER) 2.6 meq/L 3.5-5.1 LL (test code = 379) CHLORIDE (BEAKER) 95 meq/L 98-107 L (test code = 382) CO2 (BEAKER) (test 34 meq/L 22-29 H code = 355) BLOOD UREA NITROGEN 12 mg/dL 7-21 (BEAKER) (test code = 354) CREATININE (BEAKER) 0.85 mg/dL 0.57-1.25 (test code = 358) GLUCOSE RANDOM 155 mg/dL 70-105 H (BEAKER) (test code = 652) CALCIUM (BEAKER) 8.6 mg/dL 8.4-10.2 (test code = 697) EGFR (BEAKER) (test 91 mL/min/1.73 ESTIMA DAVID GFR IS code = 1092) sq m NOT ACCURATE CREATININE CLEARANCE IN PREDICTING GLOMERULAR FILTRATION RATE . ESTIMATED GFR I S NOT APPLICABLE FOR DIALYSIS PATIEN TS. [id number] 05:09:00 Test Item Value Reference Range Interpretation Comments MAGNESIUM (BEAKER) (test code = 1.7 mg/dL 1.6-2.6 627) B-TYPE NATRIURETIC FACTOR (BNP)[id number] 05:06:00 Test Item Value Reference Range Interpretation Comments B-TYPE NATRIURETIC PEPTIDE (BEAKER) 370 pg/mL 0-100 H (test code = 700) LACTIC ACID, VENOUS, WHOLE [id number] 04:52:00 Test Item Value Reference Range Interpretation Comments LACTATE BLOOD VENOUS (2) (BEAKER) 1.8 mmol/L 0.5-2.2 (test code = 2872) Effective 06/11/2015: Units/Reference Range ChangeNew: 0.5-2.2 mmol/L Previous: 5-20 mg/dLCBC W/PLT COUNT & AUTO [id number] 04:35:00 Test Item Value Reference Range Interpretation Comments WHITE BLOOD CELL COUNT (BEAKER) 10.4 K/ L 3.5-10.5 (test code = 775) RED BLOOD CELL COUNT (BEAKER) 3.32 M/ L 4.63-6.08 L (test code = 761) HEMOGLOBIN (BEAKER) (test code = 10.3 GM/DL 13.7-17.5 L 410) HEMATOCRIT (BEAKER) (test code = 32.3 % 40.1-51.0 L 411) MEAN CORPUSCULAR VOLUME (BEAKER) 97.3 fL 79.0-92.2 H (test code = 753) MEAN CORPUSCULAR HEMOGLOBIN 31.0 pg 25.7-32.2 (BEAKER) (test code = 751) MEAN CORPUSCULAR HEMOGLOBIN CONC 31.9 GM/DL 32.3-36.5 L (BEAKER) (test code = 752) RED CELL DISTRIBUTION WIDTH 14.6 % 11.6-14.4 H (BEAKER) (test code = 412) PLATELET COUNT (BEAKER) (test 190 K/CU MM 150-450 code = 756) MEAN PLATELET VOLUME (BEAKER) 11.8 fL 9.4-12.4 (test code = 754) NUCLEATED RED BLOOD CELLS 0 /100 WBC 0-0 (BEAKER) (test code = 413) NEUTROPHILS RELATIVE PERCENT 68 % (BEAKER) (test code = 429) LYMPHOCYTES RELATIVE PERCENT 21 % (BEAKER) (test code = 430) MONOCYTES RELATIVE PERCENT 8 % (BEAKER) (test code = 431) EOSINOPHILS RELATIVE PERCENT 2 % (BEAKER) (test code = 432) BASOPHILS RELATIVE PERCENT 0 % (BEAKER) (test code = 437) NEUTROPHILS ABSOLUTE COUNT 7.06 K/ L 1.78-5.38 H (BEAKER) (test code = 670) LYMPHOCYTES ABSOLUTE COUNT 2.16 K/ L 1.32-3.57 (BEAKER) (test code = 414) MONOCYTES ABSOLUTE COUNT (BEAKER) 0.87 K/ L 0.30-0.82 H (test code = 415) EOSINOPHILS ABSOLUTE COUNT 0.24 K/ L 0.04-0.54 (BEAKER) (test code = 416) BASOPHILS ABSOLUTE COUNT (BEAKER) 0.03 K/ L 0.01-0.08 (test code = 417) IMMATURE GRANULOCYTES-RELATIVE 1 % 0-1 PERCENT (BEAKER) (test code = 2801) POCT-GLUCOSE [id number] 21:17:00 Test Item Value Reference Range Interpretation Comments POC-GLUCOSE METER 280 mg/dL 70-[address] [facility] [place] [facility] 1538) [address] POCT-GLUCOSE [id number] 07:05:00 Test Item Value Reference Range Interpretation Comments POC-GLUCOSE METER 188 mg/dL 70-[address] [facility] (test code = [facility] 1538) [address] CALCIUM, [id number] 05:24:00 Test Item Value Reference Range Interpretation Comments CALCIUM IONIZED (BEAKER) (test 0.96 mmol/L 1.12-1.27 L code = 698) PH, BLOOD (BEAKER) (test code = 7.46 1810) [id number] 04:51:00 Test Item Value Reference Range Interpretation Comments POTASSIUM (BEAKER) (test code = 2.7 meq/L 3.5-5.1 L 379) PRN - repeat potassium levels every 1 hour until glucose level is less than 450 mg/[id number] 04:51:00 Test Item Value Reference Range Interpretation Comments PHOSPHORUS (BEAKER) (test code = 3.0 mg/dL 2.3-4.7 604) PRN - repeat potassium levels every 1 hour until glucose level is less than 450 mg/dLBASIC METABOLIC [id number] 04:51:00 Test Item Value Reference Range Interpretation Comments SODIUM (BEAKER) 140 meq/L 136-145 (test code = 381) POTASSIUM (BEAKER) 2.7 meq/L 3.5-5.1 L (test code = 379) CHLORIDE (BEAKER) 98 meq/L 98-107 (test code = 382) CO2 (BEAKER) (test 32 meq/L 22-29 H code = 355) BLOOD UREA NITROGEN 12 mg/dL 7-21 (BEAKER) (test code = 354) CREATININE (BEAKER) 0.86 mg/dL 0.57-1.25 (test code = 358) GLUCOSE RANDOM 180 mg/dL 70-105 H (BEAKER) (test code = 652) CALCIUM (BEAKER) 8.5 mg/dL 8.4-10.2 (test code = 697) EGFR (BEAKER) (test 90 mL/min/1.73 ESTIMA DAVID GFR IS code = 1092) sq m NOT ACCURATE CREATININE CLEARANCE IN PREDICTING GLOMERULAR FILTRATION RATE . ESTIMATED GFR I S NOT APPLICABLE FOR DIALYSIS PATIEN TS. PRN - repeat potassium levels every 1 hour until glucose level is less than 450 mg/dLCBC W/PLT COUNT & AUTO [id number] 04:16:00 Test Item Value Reference Range Interpretation Comments WHITE BLOOD CELL COUNT (BEAKER) 9.3 K/ L 3.5-10.5 (test code = 775) RED BLOOD CELL COUNT (BEAKER) 3.31 M/ L 4.63-6.08 L (test code = 761) HEMOGLOBIN (BEAKER) (test code = 10.3 GM/DL 13.7-17.5 L 410) HEMATOCRIT (BEAKER) (test code = 32.3 % 40.1-51.0 L 411) MEAN CORPUSCULAR VOLUME (BEAKER) 97.6 fL 79.0-92.2 H (test code = 753) MEAN CORPUSCULAR HEMOGLOBIN 31.1 pg 25.7-32.2 (BEAKER) (test code = 751) MEAN CORPUSCULAR HEMOGLOBIN CONC 31.9 GM/DL 32.3-36.5 L (BEAKER) (test code = 752) RED CELL DISTRIBUTION WIDTH 14.6 % 11.6-14.4 H (BEAKER) (test code = 412) PLATELET COUNT (BEAKER) (test 178 K/CU MM 150-450 code = 756) MEAN PLATELET VOLUME (BEAKER) 11.6 fL 9.4-12.4 (test code = 754) NUCLEATED RED BLOOD CELLS 0 /100 WBC 0-0 (BEAKER) (test code = 413) NEUTROPHILS RELATIVE PERCENT 67 % (BEAKER) (test code = 429) LYMPHOCYTES RELATIVE PERCENT 21 % (BEAKER) (test code = 430) MONOCYTES RELATIVE PERCENT 8 % (BEAKER) (test code = 431) EOSINOPHILS RELATIVE PERCENT 3 % (BEAKER) (test code = 432) BASOPHILS RELATIVE PERCENT 0 % (BEAKER) (test code = 437) NEUTROPHILS ABSOLUTE COUNT 6.25 K/ L 1.78-5.38 H (BEAKER) (test code = 670) LYMPHOCYTES ABSOLUTE COUNT 1.97 K/ L 1.32-3.57 (BEAKER) (test code = 414) MONOCYTES ABSOLUTE COUNT (BEAKER) 0.77 K/ L 0.30-0.82 (test code = 415) EOSINOPHILS ABSOLUTE COUNT 0.25 K/ L 0.04-0.54 (BEAKER) (test code = 416) BASOPHILS ABSOLUTE COUNT (BEAKER) 0.03 K/ L 0.01-0.08 (test code = 417) IMMATURE GRANULOCYTES-RELATIVE 1 % 0-1 PERCENT (BEAKER) (test code = 2801) [id number] 18:36:00 Test Item Value Reference Range Interpretation Comments POTASSIUM (BEAKER) (test code = 3.0 meq/L 3.5-5.1 L 379) PRN - repeat potassium levels every 1 hour until glucose level is less than 450 mg/[id number] 18:36:00 Test Item Value Reference Range Interpretation Comments MAGNESIUM (BEAKER) (test code = 2.1 mg/dL 1.6-2.6 627) PRN - repeat potassium levels every 1 hour until glucose level is less than 450 mg/dLPOCT-GLUCOSE [id number] 18:21:00 Test Item Value Reference Range Interpretation Comments POC-GLUCOSE METER 173 mg/dL 70-[address] [facility] 6720 (BEAKER) (test code = [place] 1538) [address] POCT-GLUCOSE [id number] 12:08:00 Test Item Value Reference Range Interpretation Comments POC-GLUCOSE METER 206 mg/dL 70-[address] [facility] 6720 (BEAKER) (test code = [place] 1538) [address] [id number] 09:28:00 Test Item Value Reference Range Interpretation Comments POTASSIUM (BEAKER) (test code = 3.1 meq/L 3.5-5.1 L 379) PRN - repeat potassium levels every 1 hour until glucose level is less than 450 mg/[id number] 09:28:00 Test Item Value Reference Range Interpretation Comments MAGNESIUM (BEAKER) (test code = 1.8 mg/dL 1.6-2.6 627) PRN - repeat potassium levels every 1 hour until glucose level is less than 450 mg/[id number] 08:41:00 Test Item Value Reference Range Interpretation Comments PHOSPHORUS (BEAKER) (test code = 3.1 mg/dL 2.3-4.7 604) [id number] 08:41:00 Test Item Value Reference Range Interpretation Comments MAGNESIUM (BEAKER) (test code = 1.8 mg/dL 1.6-2.6 627) BASIC METABOLIC [id number] 08:41:00 Test Item Value Reference Range Interpretation Comments SODIUM (BEAKER) 142 meq/L 136-145 (test code = 381) POTASSIUM (BEAKER) 3.1 meq/L 3.5-5.1 L (test code = 379) CHLORIDE (BEAKER) 101 meq/L 98-107 (test code = 382) CO2 (BEAKER) (test 30 meq/L 22-29 H code = 355) BLOOD UREA NITROGEN 12 mg/dL 7-21 (BEAKER) (test code = 354) CREATININE (BEAKER) 0.77 mg/dL 0.57-1.25 (test code = 358) GLUCOSE RANDOM 144 mg/dL 70-105 H (BEAKER) (test code = 652) CALCIUM (BEAKER) 8.5 mg/dL 8.4-10.2 (test code = 697) EGFR (BEAKER) (test 102 mL/min/1.73 ESTIM ATED GFR IS code = 1092) sq m NOT ACCURATE CREATININE CLEARANCE IN PREDICTING GLOMERULAR FILTRATION RATE . ESTIMATED GFR I S NOT APPLICABLE FOR DIALYSIS PATIEN TS. POCT-GLUCOSE [id number] 07:57:00 Test Item Value Reference Range Interpretation Comments POC-GLUCOSE METER 156 mg/dL 70-[address] [facility] 6720 (BEAKER) (test code = [place] 1538) [address] CALCIUM, [id number] 06:01:00 Test Item Value Reference Range Interpretation Comments CALCIUM IONIZED (BEAKER) (test 1.05 mmol/L 1.12-1.27 L code = 698) PH, BLOOD (BEAKER) (test code = 7.46 1810) OXYGEN SATURATION, [id number] 05:58:00 Test Item Value Reference Range Interpretation Comments O2 SATURATION (MEASURED) (BEAKER) 62.7 % (test code = 1455) [id number] 02:38:00 Test Item Value Reference Range Interpretation Comments POTASSIUM (BEAKER) 3.2 meq/L 3.5-5.1 L Specimen slightly (test code = 379) hemolyzed PRN - repeat potassium levels every 1 hour until glucose level is less than 450 mg/dLCBC W/PLT COUNT & AUTO [id number] 02:29:00 Test Item Value Reference Range Interpretation Comments WHITE BLOOD CELL COUNT (BEAKER) 8.8 K/ L 3.5-10.5 (test code = 775) RED BLOOD CELL COUNT (BEAKER) 2.96 M/ L 4.63-6.08 L (test code = 761) HEMOGLOBIN (BEAKER) (test code = 9.4 GM/DL 13.7-17.5 L 410) HEMATOCRIT (BEAKER) (test code = 29.4 % 40.1-51.0 L 411) MEAN CORPUSCULAR VOLUME (BEAKER) 99.3 fL 79.0-92.2 H (test code = 753) MEAN CORPUSCULAR HEMOGLOBIN 31.8 pg 25.7-32.2 (BEAKER) (test code = 751) MEAN CORPUSCULAR HEMOGLOBIN CONC 32.0 GM/DL 32.3-36.5 L (BEAKER) (test code = 752) RED CELL DISTRIBUTION WIDTH 14.2 % 11.6-14.4 (BEAKER) (test code = 412) PLATELET COUNT (BEAKER) (test 154 K/CU MM 150-450 code = 756) MEAN PLATELET VOLUME (BEAKER) 12.3 fL 9.4-12.4 (test code = 754) NUCLEATED RED BLOOD CELLS 0 /100 WBC 0-0 (BEAKER) (test code = 413) NEUTROPHILS RELATIVE PERCENT 75 % (BEAKER) (test code = 429) LYMPHOCYTES RELATIVE PERCENT 17 % (BEAKER) (test code = 430) MONOCYTES RELATIVE PERCENT 7 % (BEAKER) (test code = 431) EOSINOPHILS RELATIVE PERCENT 1 % (BEAKER) (test code = 432) BASOPHILS RELATIVE PERCENT 0 % (BEAKER) (test code = 437) NEUTROPHILS ABSOLUTE COUNT 6.58 K/ L 1.78-5.38 H (BEAKER) (test code = 670) LYMPHOCYTES ABSOLUTE COUNT 1.52 K/ L 1.32-3.57 (BEAKER) (test code = 414) MONOCYTES ABSOLUTE COUNT (BEAKER) 0.59 K/ L 0.30-0.82 (test code = 415) EOSINOPHILS ABSOLUTE COUNT 0.05 K/ L 0.04-0.54 (BEAKER) (test code = 416) BASOPHILS ABSOLUTE COUNT (BEAKER) 0.02 K/ L 0.01-0.08 (test code = 417) IMMATURE GRANULOCYTES-RELATIVE 1 % 0-1 PERCENT (BEAKER) (test code = 2801) POCT-GLUCOSE [id number] 00:21:00 Test Item Value Reference Range Interpretation Comments POC-GLUCOSE METER 166 mg/dL 70-[address] [facility] 6720 (BEAKER) (test code = [place] 1538) [address] RAD, CHEST, 1 VIEW, NON [id number] 22:03:00Reason for exam:->preopShould this be performed at the bedside?->YesFINAL REPORT Portable chest. HISTORY: Preoperative. COMPARISON STUDY: August 26, 2017. FINDINGS: The cardiac silhouette is enlarged. The patient is status post sternotomy. A right-sided jugular line is seen. There is pulmonary venous congestion and increased interstitial markings with atelectasis or consolidation in the lung bases. There is a 2 cm nodular opacity projecting over the left upper lung field. Blunting of the left costophrenic angle is seen. No pneumothorax is noted.Degenerative changes are seen. IMPRESSION:1. Findings most suggestive of volume overload. In the right clinical setting, a superimposed infection would be difficult to exclude. Clinical correlation andshort term imaging follow-up could be made to exclude other etiologies.2. Nodular opacity projectingover the left upper lung field which could be further assessed with CT scan. Signed: Nalini Rodriguez Verified Date/Time: 08/26/2017 22:03:18 Reading Location: [address] Consult Reading Room [id number] 21:21:00 Test Item Value Reference Range Interpretation Comments PHOSPHORUS (BEAKER) (test code = 1.8 mg/dL 2.3-4.7 L 604) [id number] 21:21:00 Test Item Value Reference Range Interpretation Comments MAGNESIUM (BEAKER) (test code = 2.2 mg/dL 1.6-2.6 627) BASIC METABOLIC [id number] 21:21:00 Test Item Value Reference Range Interpretation Comments SODIUM (BEAKER) 141 meq/L 136-145 (test code = 381) POTASSIUM (BEAKER) 3.3 meq/L 3.5-5.1 L (test code = 379) CHLORIDE (BEAKER) 99 meq/L 98-107 (test code = 382) CO2 (BEAKER) (test 29 meq/L 22-29 code = 355) BLOOD UREA NITROGEN 14 mg/dL 7-21 (BEAKER) (test code = 354) CREATININE (BEAKER) 0.81 mg/dL 0.57-1.25 (test code = 358) GLUCOSE RANDOM 144 mg/dL 70-105 H (BEAKER) (test code = 652) CALCIUM (BEAKER) 8.6 mg/dL 8.4-10.2 (test code = 697) EGFR (BEAKER) (test 97 mL/min/1.73 ESTIMA DAVID GFR IS code = 1092) sq m NOT ACCURATE CREATININE CLEARANCE IN PREDICTING GLOMERULAR FILTRATION RATE . ESTIMATED GFR I S NOT APPLICABLE FOR DIALYSIS PATIEN TS. CALCIUM, [id number] 19:57:00 Test Item Value Reference Range Interpretation Comments CALCIUM IONIZED (BEAKER) (test 1.06 mmol/L 1.12-1.27 L code = 698) PH, BLOOD (BEAKER) (test code = 7.48 6780) Check serum Ionized Calcium level after 4 hours after IV Calcium replacement. [id number] 19:35:00 Test Item Value Reference Range Interpretation Comments POTASSIUM (BEAKER) (test code = 3.0 meq/L 3.5-5.1 L 379) PRN - repeat potassium levels every 1 hour until glucose level is less than 450 mg/dLPOCT-GLUCOSE [id number] 18:15:00 Test Item Value Reference Range Interpretation Comments POC-GLUCOSE METER 276 mg/dL 70-[address] [facility] 6720 (BEAKER) (test code = TWYLAMELISSA [place] 1538) [id number] 12:52:00 Test Item Value Reference Range Interpretation Comments PHOSPHORUS (BEAKER) (test code = 1.7 mg/dL 2.3-4.7 L 604) [id number] 12:52:00 Test Item Value Reference Range Interpretation Comments MAGNESIUM (BEAKER) (test code = 1.9 mg/dL 1.6-2.6 627) BASIC METABOLIC [id number] 12:52:00 Test Item Value Reference Range Interpretation Comments SODIUM (BEAKER) 141 meq/L 136-145 (test code = 381) POTASSIUM (BEAKER) 3.4 meq/L 3.5-5.1 L (test code = 379) CHLORIDE (BEAKER) 100 meq/L 98-107 (test code = 382) CO2 (BEAKER) (test 33 meq/L 22-29 H code = 355) BLOOD UREA NITROGEN 14 mg/dL 7-21 (BEAKER) (test code = 354) CREATININE (BEAKER) 0.74 mg/dL 0.57-1.25 (test code = 358) GLUCOSE RANDOM 239 mg/dL 70-105 H (BEAKER) (test code = 652) CALCIUM (BEAKER) 8.6 mg/dL 8.4-10.2 (test code = 697) EGFR (BEAKER) (test 107 mL/min/1.73 ESTIM ATED GFR IS code = 1092) sq m NOT ACCURATE CREATININE CLEARANCE IN PREDICTING GLOMERULAR FILTRATION RATE . ESTIMATED GFR I S NOT APPLICABLE FOR DIALYSIS PATIEN TS. CALCIUM, [id number] 12:51:00 Test Item Value Reference Range Interpretation Comments CALCIUM IONIZED (BEAKER) (test 1.01 mmol/L 1.12-1.27 L code = 698) PH, BLOOD (BEAKER) (test code = 7.49 1810) OXYGEN SATURATION, [id number] 12:50:00 Test Item Value Reference Range Interpretation Comments O2 SATURATION (MEASURED) (BEAKER) 59.9 % (test code = 1455) POCT-GLUCOSE [id number] 11:41:00 Test Item Value Reference Range Interpretation Comments POC-GLUCOSE METER 236 mg/dL 70-110 H TESTED AT [place] [address] ([facility]) (test code = [place] [facility] 1538) [address] OXYGEN SATURATION, [id number] 08:00:00 Test Item Value Reference Range Interpretation Comments O2 SATURATION (MEASURED) (AKER) 65.7 % (test code = 1455) POCT-GLUCOSE [id number] 07:53:00 Test Item Value Reference Range Interpretation Comments POC-GLUCOSE METER 204 mg/dL 70-[address] [facility] 6720 ([facility]) (test code = [place] [facility] 1538) [address] SPUTUM CULTURE + GRAM [id number] 07:40:00 Test Item Value Reference Range Interpretation Comments CULTURE (BEAKER) Oropharyngeal (test code = 1095) contamination, specimen rejected. Recollect requested. GRAM STAIN RESULT No White blood cells seen (BEAKER) (test code = 1123) GRAM STAIN RESULT >25 epithelial cells (BEAKER) (test code = 44883) GRAM STAIN RESULT <1+ yeast with (BEAKER) (test code pseudohyphae = 52296) RAD, ABDOMEN/KUB, 1 VIEW [id number] 07:34:00Reason for exam:->corpak placementShould this be performed at the bedside?->YesFINAL REPORT Abdomen one view shows feeding tube at the pylorus. Signed: Vandana Alfredo Verified Date/Time: 08/26/2017 07:34:48 Reading Location: [facility] Radiology Reading Room RAD, CHEST, 1 VIEW, NON [id number] 07:27:00Reason for exam:->respiratory insufficiencyShould this be performed at the bedside?->YesFINAL REPORT Chest one view compared to August 26, 2017 Discussion: Interstitial opacities bilateral and apparent airspace opacity on the left are noted. I could not exclude left effusion. No pneumothorax. Feeding tube and right IJ line in place. IMPRESSIONS: The current chest appearance might be artifact but right hemithorax opacities appear improved and left hemithorax opacities appear worse. Signed: Vandana Todd Verified Date/Time: 08/26/2017 07:27:28 Reading Location: [facility] Radiology Reading Room BASIC METABOLIC [id number] 05:32:00 Test Item Value Reference Range Interpretation Comments SODIUM (BEAKER) 142 meq/L 136-145 (test code = 381) POTASSIUM (BEAKER) 3.2 meq/L 3.5-5.1 L (test code = 379) CHLORIDE (BEAKER) 105 meq/L 98-107 (test code = 382) CO2 (BEAKER) (test 30 meq/L 22-29 H code = 355) BLOOD UREA NITROGEN 15 mg/dL 7-21 (BEAKER) (test code = 354) CREATININE (BEAKER) 0.75 mg/dL 0.57-1.25 (test code = 358) GLUCOSE RANDOM 250 mg/dL 70-105 H (BEAKER) (test code = 652) CALCIUM (BEAKER) 7.8 mg/dL 8.4-10.2 L (test code = 697) EGFR (BEAKER) (test 106 mL/min/1.73 ESTIM ATED GFR IS code = 1092) sq m NOT ACCURATE CREATININE CLEARANCE IN PREDICTING GLOMERULAR FILTRATION RATE . ESTIMATED GFR I S NOT APPLICABLE FOR DIALYSIS PATIEN TS. [id number] 05:31:00 Test Item Value Reference Range Interpretation Comments MAGNESIUM (BEAKER) (test code = 2.2 mg/dL 1.6-2.6 627) CBC W/PLT COUNT & AUTO [id number] 04:49:00 Test Item Value Reference Range Interpretation Comments WHITE BLOOD CELL COUNT (BEAKER) 6.6 K/ L 3.5-10.5 (test code = 775) RED BLOOD CELL COUNT (BEAKER) 2.71 M/ L 4.63-6.08 L (test code = 761) HEMOGLOBIN (BEAKER) (test code = 8.4 GM/DL 13.7-17.5 L 410) HEMATOCRIT (BEAKER) (test code = 27.8 % 40.1-51.0 L 411) MEAN CORPUSCULAR VOLUME (BEAKER) 102.6 fL 79.0-92.2 H (test code = 753) MEAN CORPUSCULAR HEMOGLOBIN 31.0 pg 25.7-32.2 (BEAKER) (test code = 751) MEAN CORPUSCULAR HEMOGLOBIN CONC 30.2 GM/DL 32.3-36.5 L (BEAKER) (test code = 752) RED CELL DISTRIBUTION WIDTH 14.0 % 11.6-14.4 (BEAKER) (test code = 412) PLATELET COUNT (BEAKER) (test 115 K/CU MM 150-450 L code = 756) MEAN PLATELET VOLUME (BEAKER) 12.6 fL 9.4-12.4 H (test code = 754) NUCLEATED RED BLOOD CELLS 0 /100 WBC 0-0 (BEAKER) (test code = 413) NEUTROPHILS RELATIVE PERCENT 73 % (BEAKER) (test code = 429) LYMPHOCYTES RELATIVE PERCENT 19 % (BEAKER) (test code = 430) MONOCYTES RELATIVE PERCENT 6 % (BEAKER) (test code = 431) EOSINOPHILS RELATIVE PERCENT 1 % (BEAKER) (test code = 432) BASOPHILS RELATIVE PERCENT 0 % (BEAKER) (test code = 437) NEUTROPHILS ABSOLUTE COUNT 4.84 K/ L 1.78-5.38 (BEAKER) (test code = 670) LYMPHOCYTES ABSOLUTE COUNT 1.25 K/ L 1.32-3.57 L (BEAKER) (test code = 414) MONOCYTES ABSOLUTE COUNT (BEAKER) 0.42 K/ L 0.30-0.82 (test code = 415) EOSINOPHILS ABSOLUTE COUNT 0.05 K/ L 0.04-0.54 (BEAKER) (test code = 416) BASOPHILS ABSOLUTE COUNT (BEAKER) 0.01 K/ L 0.01-0.08 (test code = 417) IMMATURE GRANULOCYTES-RELATIVE 1 % 0-1 PERCENT (BEAKER) (test code = 2801) CT BRAIN WITHOUT IV CONTRAST - [id number] 02:23:00Reason for exam:- >confusion/delirium, altered LOC unexplainedFINAL REPORT EXAM: CT head without contrast. CLINICAL HISTORY: confusion/delirium, altered LOC unexplained COMPARISON: Head CT 08/20/2017 TECHNIQUE: CT images of the head were obtained without intravenous contrast. This exam was performed according to our departmental dose optimization program which includes automated exposure control, adjustment of the mA and/or kV according to patient's size and/or use of iterative reconstructive technique. FINDINGS:The study is limited by positioning and motion artifact. There is no gross acute intracranial hemorrhage or extra-axial fluidcollection. There is no herniation, mass effect or hydrocephalus. There is no large demarcated territorial infarct. There is intracranial calcific atherosclerosis. The mastoid air cells and paranasal si nuses are clear. The visualized orbits are unremarkable. A nasogastric tube is present. The skull base and calvarium are intact. IMPRESSION: Motion limited exam.No definite CT evidence of an acute intracranial process. Signed: Mary Hoover MDReport Verified Date/Time: 08/26/2017 02:23:10 Reading Location: [address] Body Reading Room [id number] 01:02:00 Test Item Value Reference Range Interpretation Comments POTASSIUM (BEAKER) (test code = 3.3 meq/L 3.5-5.1 L 379) PRN - repeat potassium levels every 1 hour until glucose level is less than 450 mg/[id number] 01:02:00 Test Item Value Reference Range Interpretation Comments MAGNESIUM (BEAKER) (test code = 1.9 mg/dL 1.6-2.6 627) PRN - repeat potassium levels every 1 hour until glucose level is less than 450 mg/dLPOCT-GLUCOSE [id number] 22:07:00 Test Item Value Reference Range Interpretation Comments POC-GLUCOSE METER 270 mg/dL 70-[address] [facility] 6720 (BEAKER) (test code = [place] 1538) [address] BLOOD GAS, [id number] 21:24:00 Test Item Value Reference Range Interpretation Comments PH ARTERIAL (BEAKER) (test code = 7.44 7.35-7.45 383) PCO2 ARTERIAL (BEAKER) (test code 52 mmHg 35-45 H = 384) PO2 ARTERIAL (BEAKER) (test code = 113 mmHg 80-90 H 385) O2 SATURATION ARTERIAL (BEAKER) 98.2 % 96.0-97.0 H (test code = 386) HCO3 ARTERIAL (BEAKER) (test code 34 mmol/L 21-29 H = 388) BASE EXCESS ARTERIAL (BEAKER) 8.9 mmol/L -2.0-3.0 H (test code = 387) PATIENT TEMPERATURE (BEAKER) (test 37.0 C code = 1818) FIO2 (BEAKER) (test code = 1819) 44.0 % SODIUM NA-STAT [id number] 21:19:00 Test Item Value Reference Range Interpretation Comments SODIUM (BEAKER) (test code = 381) 142 meq/L 135-148 [id number] 20:16:00 Test Item Value Reference Range Interpretation Comments MAGNESIUM (BEAKER) 2.3 mg/dL 1.6-2.6 Specimen slightly (test code = 627) hemolyzed PRN - repeat potassium levels every 1 hour until glucose level is less than 450 mg/[id number] 20:16:00 Test Item Value Reference Range Interpretation Comments POTASSIUM (BEAKER) 3.6 meq/L 3.5-5.1 Specimen slightly (test code = 379) hemolyzed PRN - repeat potassium levels every 1 hour until glucose level is less than 450 mg/[id number] 18:42:00 Test Item Value Reference Range Interpretation Comments SODIUM (BEAKER) (test code = 381) 144 meq/L 136-145 EEG AWAKE AND [id number] 18:32:00Reason for exam:->To rule out seizures/ AMSDATE OF REPORT: CC: [id number] Number: [id number] time: 14:55 Stop time: 15:20ICD-10: R56.9CPT Code: 47484 HISTORY: 62 yo male with PMHx of ALL, ND, HTN, 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 MEDICATIONS THAT COULD AFFECT EEG: Precedex, Clonazepam TECHNICAL SUMMARY: This is a digital video-EEG recorded with 32 input channels reviewed with bipolar and referential montages using themodified combinatorial system nomenclature. DESCRIPTION OF RECORD: During the maximally alert statethere is no posterior dominant rhythm. The background is symmetric with a poor anterior to posterior gradient. The awake background was characterized by 1-2 Hz delta activity admized with 4-6 Hz thetaand superimposed faster frequencies. There is some reactivity to noxious stimulation. Stage 2 sleep was not recorded. SIGNIFICANT VIDEO EVENTS: None SIGNIFICANT ELECTROCARDIOGRAM EVENTS: None HV: Hyperventilation was not performed. PHOTIC STIMULATION: Photic stimulation was done from 3-30 Hz; no p hotic driving was seen; photoparoxysmal responses were absent. IMPRESSION: Abormal Lethargic EEG 1. Continuous generalized delta-theta slowing CLINICAL CORRELATION: Diffuse slowing as seen inthis record supports an underlying moderate encephalopathy. The absence of epileptiform abnormality does not necessarily preclude the clinical diagnosis of epilepsy. Cecily Garcia MDNeurophysiology/Epilepsy Fellow Bear Webster MD, MSClinical Neurophysiology/epilepsy attending Electronically signedby: BEAR WEBSTER MD on 08/25/2017 06:32 PMBLOOD [id number] 17:49:00 Test Item Value Reference Range Interpretation Comments CULTURE (BEAKER) (test No growth in 5 days code = 1095) BLOOD [id number] 17:48:00 Test Item Value Reference Range Interpretation Comments CULTURE (BEAKER) (test No growth in 5 days code = 1095) POCT-GLUCOSE [id number] 17:30:00 Test Item Value Reference Range Interpretation Comments POC-GLUCOSE METER 254 mg/dL 70-[address] [facility] 6720 (BEAKER) (test code = [place] [facility] 1538) [address] POCT-GLUCOSE [id number] 11:50:00 Test Item Value Reference Range Interpretation Comments POC-GLUCOSE METER 252 mg/dL 70-[address] [facility] (test code = [place] [facility] 1538) [address] POCT-GLUCOSE [id number] 09:11:00 Test Item Value Reference Range Interpretation Comments POC-GLUCOSE METER 312 mg/dL 70-110 H TESTED AT [place] [address] ([facility]) (test code = [place] [facility] 1538) [address] RAD, CHEST, 1 VIEW, NON [id number] 07:31:00Reason for exam:->pulmonary edemaShould this be performed at the bedside?->YesFINAL REPORT Chest one view compared to August 24 Discussion: Mild cardiac prominence and interstitial edema are noted. No effusion or pneumothorax. Feeding tube and right IJ line in place. IMPRESSIONS: Interstitial edema is worse. Signed: Vandana Todd Verified Date/Time: 08/25/2017 07:31:54 Reading Location: [facility] Radiology Reading Room [id number] 07:13:00 Test Item Value Reference Range Interpretation Comments MAGNESIUM (BEAKER) (test code = 1.8 mg/dL 1.6-2.6 627) BASIC METABOLIC [id number] 07:13:00 Test Item Value Reference Range Interpretation Comments SODIUM (BEAKER) 147 meq/L 136-145 H (test code = 381) POTASSIUM (BEAKER) 3.4 meq/L 3.5-5.1 L (test code = 379) CHLORIDE (BEAKER) 105 meq/L 98-107 (test code = 382) CO2 (BEAKER) (test 32 meq/L 22-29 H code = 355) BLOOD UREA NITROGEN 15 mg/dL 7-21 (BEAKER) (test code = 354) CREATININE (BEAKER) 0.76 mg/dL 0.57-1.25 (test code = 358) GLUCOSE RANDOM 234 mg/dL 70-105 H (BEAKER) (test code = 652) CALCIUM (BEAKER) 8.0 mg/dL 8.4-10.2 L (test code = 697) EGFR (BEAKER) (test 104 mL/min/1.73 ESTIM ATED GFR IS code = 1092) sq m NOT ACCURATE CREATININE CLEARANCE IN PREDICTING GLOMERULAR FILTRATION RATE . ESTIMATED GFR I S NOT APPLICABLE FOR DIALYSIS PATIEN TS. CBC W/PLT COUNT & AUTO [id number] 04:57:00 Test Item Value Reference Range Interpretation Comments WHITE BLOOD CELL COUNT (BEAKER) 6.0 K/ L 3.5-10.5 (test code = 775) RED BLOOD CELL COUNT (BEAKER) 2.60 M/ L 4.63-6.08 L (test code = 761) HEMOGLOBIN (BEAKER) (test code = 8.1 GM/DL 13.7-17.5 L 410) HEMATOCRIT (BEAKER) (test code = 26.7 % 40.1-51.0 L 411) MEAN CORPUSCULAR VOLUME (BEAKER) 102.7 fL 79.0-92.2 H (test code = 753) MEAN CORPUSCULAR HEMOGLOBIN 31.2 pg 25.7-32.2 (BEAKER) (test code = 751) MEAN CORPUSCULAR HEMOGLOBIN CONC 30.3 GM/DL 32.3-36.5 L (BEAKER) (test code = 752) RED CELL DISTRIBUTION WIDTH 13.8 % 11.6-14.4 (BEAKER) (test code = 412) PLATELET COUNT (BEAKER) (test code 99 K/CU MM 150-450 L = 756) MEAN PLATELET VOLUME (BEAKER) 13.0 fL 9.4-12.4 H (test code = 754) NUCLEATED RED BLOOD CELLS (BEAKER) 0 /100 WBC 0-0 (test code = 413) NEUTROPHILS RELATIVE PERCENT 75 % (BEAKER) (test code = 429) LYMPHOCYTES RELATIVE PERCENT 17 % (BEAKER) (test code = 430) MONOCYTES RELATIVE PERCENT 6 % (BEAKER) (test code = 431) EOSINOPHILS RELATIVE PERCENT 0 % (BEAKER) (test code = 432) BASOPHILS RELATIVE PERCENT 0 % (BEAKER) (test code = 437) NEUTROPHILS ABSOLUTE COUNT 4.50 K/ L 1.78-5.38 (BEAKER) (test code = 670) LYMPHOCYTES ABSOLUTE COUNT 1.04 K/ L 1.32-3.57 L (BEAKER) (test code = 414) MONOCYTES ABSOLUTE COUNT (BEAKER) 0.38 K/ L 0.30-0.82 (test code = 415) EOSINOPHILS ABSOLUTE COUNT 0.02 K/ L 0.04-0.54 L (BEAKER) (test code = 416) BASOPHILS ABSOLUTE COUNT (BEAKER) 0.01 K/ L 0.01-0.08 (test code = 417) IMMATURE GRANULOCYTES-RELATIVE 0 % 0-1 PERCENT (BEAKER) (test code = 2801) BLOOD GAS, [id number] 04:31:00 Test Item Value Reference Range Interpretation Comments PH ARTERIAL (BEAKER) (test code = 7.47 7.35-7.45 H 383) PCO2 ARTERIAL (BEAKER) (test code 50 mmHg 35-45 H = 384) PO2 ARTERIAL (BEAKER) (test code 103 mmHg 80-90 H = 385) O2 SATURATION ARTERIAL (BEAKER) 97.9 % 96.0-97.0 H (test code = 386) HCO3 ARTERIAL (BEAKER) (test code 36 mmol/L 21-29 H = 388) BASE EXCESS ARTERIAL (BEAKER) 10.7 mmol/L -2.0-3.0 H (test code = 387) PATIENT TEMPERATURE (BEAKER) 37.0 C (test code = 1818) FIO2 (BEAKER) (test code = 1819) 44.0 % OXYGEN SATURATION, [id number] 04:20:00 Test Item Value Reference Range Interpretation Comments O2 SATURATION (MEASURED) (BEAKER) 64.8 % (test code = 1455) POCT-GLUCOSE [id number] 22:39:00 Test Item Value Reference Range Interpretation Comments POC-GLUCOSE METER 196 mg/dL 70-[address] [facility] 6720 (BEAKER) (test code = [facility] 1537) [address] [id number] 19:20:00 Test Item Value Reference Range Interpretation Comments POTASSIUM (BEAKER) 3.8 meq/L 3.5-5.1 Specimen slightly (test code = 379) hemolyzed PRN - repeat potassium levels every 1 hour until glucose level is less than 450 mg/dLCALCIUM, [id number] 18:28:00 Test Item Value Reference Range Interpretation Comments CALCIUM IONIZED (BEAKER) (test 1.04 mmol/L 1.12-1.27 L code = 698) PH, BLOOD ([facility]) (test code = 7.49 1810) Check serum Ionized Calcium level after 4 hours after IV Calcium replacement. POCT-GLUCOSE [id number] 18:23:00 Test Item Value Reference Range Interpretation Comments POC-GLUCOSE METER 194 mg/dL 70-110 H TESTED AT [place] [address] ([facility]) (test code = [facility] 1538) [address] VANCOMYCIN LEVEL, [id number] 16:50:00 Test Item Value Reference Range Interpretation Comments VANCOMYCIN TROUGH (BEAKER) (test 11.3 ug/mL 10.0-20.0 code = 522) Please draw 30 minutes prior to next Vancomycin [id number] 16:06:00 Test Item Value Reference Range Interpretation Comments POTASSIUM (BEAKER) (test code = 3.6 meq/L 3.5-5.1 379) PRN - repeat potassium levels every 1 hour until glucose level is less than 450 mg/[id number] 13:08:00 Test Item Value Reference Range Interpretation Comments POTASSIUM (BEAKER) (test code = 3.4 meq/L 3.5-5.1 L 379) PRN - repeat potassium levels every 1 hour until glucose level is less than 450 mg/dLPOCT-GLUCOSE [id number] 12:38:00 Test Item Value Reference Range Interpretation Comments POC-GLUCOSE METER 217 mg/dL 70-110 H TESTED AT [place] [address] ([facility]) (test code = [facility] 1538) [address] [id number] 11:26:00 Test Item Value Reference Range Interpretation Comments PROCALCITONIN (BEAKER) (test code 0.74 ng/mL <0.05 H = 3036) SEPSIS RISK (ng/mL)Low: 0.05-0.50Intermediate: 0.51-2.00High: >=2.01CALCIUM, [id number] 10:51:00 Test Item Value Reference Range Interpretation Comments CALCIUM IONIZED (BEAKER) (test 1.06 mmol/L 1.12-1.27 L code = 698) PH, BLOOD (BEAKER) (test code = 7.39 1810) Check serum Ionized Calcium level after 4 hours after IV Calcium replacement. [id number] 08:53:00 Test Item Value Reference Range Interpretation Comments POTASSIUM (BEAKER) (test code = 3.6 meq/L 3.5-5.1 379) Check Serum Potassium level 2 hours after oral potassium replacement completed or 30 min after intravenous potassium replacement.[id number] 08:53:00 Test Item Value Reference Range Interpretation Comments MAGNESIUM (BEAKER) (test code = 2.6 mg/dL 1.6-2.6 627) Check Serum Potassium level 2 hours after oral potassium replacement completed or 30 min after intravenous potassium replacement.POCT-GLUCOSE [id number] 07:35:00 Test Item Value Reference Range Interpretation Comments POC-GLUCOSE METER 180 mg/dL 70-[address] [facility] 6720 (BEAKER) (test code = [place] 1538) [address] [id number] 04:29:00 Test Item Value Reference Range Interpretation Comments PHOSPHORUS (BEAKER) (test code = 2.9 mg/dL 2.3-4.7 604) [id number] 04:29:00 Test Item Value Reference Range Interpretation Comments MAGNESIUM (BEAKER) (test code = 1.9 mg/dL 1.6-2.6 627) BASIC METABOLIC [id number] 04:29:00 Test Item Value Reference Range Interpretation Comments SODIUM (BEAKER) 144 meq/L 136-145 (test code = 381) POTASSIUM (BEAKER) 3.3 meq/L 3.5-5.1 L (test code = 379) CHLORIDE (BEAKER) 105 meq/L 98-107 (test code = 382) CO2 (BEAKER) (test 29 meq/L 22-29 code = 355) BLOOD UREA NITROGEN 16 mg/dL 7-21 (BEAKER) (test code = 354) CREATININE (BEAKER) 0.80 mg/dL 0.57-1.25 (test code = 358) GLUCOSE RANDOM 177 mg/dL 70-105 H (BEAKER) (test code = 652) CALCIUM (BEAKER) 8.1 mg/dL 8.4-10.2 L (test code = 697) EGFR (BEAKER) (test 98 mL/min/1.73 ESTIMA DAVID GFR IS code = 1092) sq m NOT ACCURATE CREATININE CLEARANCE IN PREDICTING GLOMERULAR FILTRATION RATE . ESTIMATED GFR I S NOT APPLICABLE FOR DIALYSIS PATIEN TS. RAD, CHEST, 1 VIEW, NON [id number] 04:23:00Reason for exam:->ptxShould this be performed at the bedside?->YesFINAL REPORT RAD, CHEST, 1 VIEW, NON DEPT INDICATION: ptx COMPARISON: Prior day's exam FINDINGS: Portable frontal view of the chest. IMPRESSION: Support Lines: Interval extubation. Remaining support hardware is stable. Lungs and pleura: No focal consolidation. No effusion. Nopneumothorax.Heart and mediastinum: Stable contours. Stable surgical changes.Additional findings: None. Signed: JR Holden Robert MDReport Verified Date/Time: 08/24/2017 04:23:14 Reading Location: [address] Reading Room PROTHROMBIN [id number] 04:15:00 Test Item Value Reference Range Interpretation Comments PROTIME (BEAKER) (test code = 14.7 seconds 11.7-14.7 759) INR (BEAKER) (test code = 370) 1.2 <=5.9 RECOMMENDED COUMADIN/WARFARIN INR THERAPY RANGESSTANDARD DOSE: 2.0 - 3.0 Includes: PROPHYLAXIS forvenous thrombosis, systemic embolization; TREATMENT for venous thrombosis and/or pulmonary embolus.HIGH RISK: Target INR is 2.5-3.5 for patients with mechanical heart valves.CBC W/PLT COUNT & AUTO DIFFERENTIAL 2017-08-24 04:03:00 Test Item Value Reference Range Interpretation Comments WHITE BLOOD CELL COUNT (BEAKER) 6.9 K/ L 3.5-10.5 (test code = 775) RED BLOOD CELL COUNT (BEAKER) 2.37 M/ L 4.63-6.08 L (test code = 761) HEMOGLOBIN (BEAKER) (test code = 7.5 GM/DL 13.7-17.5 L 410) HEMATOCRIT (BEAKER) (test code = 24.0 % 40.1-51.0 L 411) MEAN CORPUSCULAR VOLUME (BEAKER) 101.3 fL 79.0-92.2 H (test code = 753) MEAN CORPUSCULAR HEMOGLOBIN 31.6 pg 25.7-32.2 (BEAKER) (test code = 751) MEAN CORPUSCULAR HEMOGLOBIN CONC 31.3 GM/DL 32.3-36.5 L (BEAKER) (test code = 752) RED CELL DISTRIBUTION WIDTH 13.7 % 11.6-14.4 (BEAKER) (test code = 412) PLATELET COUNT (BEAKER) (test code 82 K/CU MM 150-450 L = 756) MEAN PLATELET VOLUME (BEAKER) 13.2 fL 9.4-12.4 H (test code = 754) NUCLEATED RED BLOOD CELLS (BEAKER) 0 /100 WBC 0-0 (test code = 413) NEUTROPHILS RELATIVE PERCENT 80 % (BEAKER) (test code = 429) LYMPHOCYTES RELATIVE PERCENT 12 % (BEAKER) (test code = 430) MONOCYTES RELATIVE PERCENT 8 % (BEAKER) (test code = 431) EOSINOPHILS RELATIVE PERCENT 0 % (BEAKER) (test code = 432) BASOPHILS RELATIVE PERCENT 0 % (BEAKER) (test code = 437) NEUTROPHILS ABSOLUTE COUNT 5.48 K/ L 1.78-5.38 H (BEAKER) (test code = 670) LYMPHOCYTES ABSOLUTE COUNT 0.84 K/ L 1.32-3.57 L (BEAKER) (test code = 414) MONOCYTES ABSOLUTE COUNT (BEAKER) 0.52 K/ L 0.30-0.82 (test code = 415) EOSINOPHILS ABSOLUTE COUNT 0.01 K/ L 0.04-0.54 L (BEAKER) (test code = 416) BASOPHILS ABSOLUTE COUNT (BEAKER) 0.01 K/ L 0.01-0.08 (test code = 417) IMMATURE GRANULOCYTES-RELATIVE 0 % 0-1 PERCENT (BEAKER) (test code = 2801) BLOOD GAS, [id number] 03:54:00 Test Item Value Reference Range Interpretation Comments PH ARTERIAL (BEAKER) (test code = 7.45 7.35-7.45 383) PCO2 ARTERIAL (BEAKER) (test code 46 mmHg 35-45 H = 384) PO2 ARTERIAL (BEAKER) (test code = 116 mmHg 80-90 H 385) O2 SATURATION ARTERIAL (BEAKER) 98.4 % 96.0-97.0 H (test code = 386) HCO3 ARTERIAL (BEAKER) (test code 32 mmol/L 21-29 H = 388) BASE EXCESS ARTERIAL (BEAKER) 6.6 mmol/L -2.0-3.0 H (test code = 387) PATIENT TEMPERATURE (BEAKER) (test 36.5 C code = 1818) FIO2 (BEAKER) (test code = 1819) 100.0 % OXYGEN SATURATION, [id number] 03:54:00 Test Item Value Reference Range Interpretation Comments O2 SATURATION (MEASURED) (BEAKER) 65.9 % (test code = 1455) CALCIUM, [id number] 03:54:00 Test Item Value Reference Range Interpretation Comments CALCIUM IONIZED (BEAKER) (test 1.02 mmol/L 1.12-1.27 L code = 698) PH, BLOOD (BEAKER) (test code = 7.44 1810) POCT-GLUCOSE [id number] 00:15:00 Test Item Value Reference Range Interpretation Comments POC-GLUCOSE METER 221 mg/dL 70-[address] [facility] 67[address] (BEAKER) (test code = [place] 1538) [id number] 00:13:00 Test Item Value Reference Range Interpretation Comments POTASSIUM (BEAKER) (test code = 3.3 meq/L 3.5-5.1 L 379) PRN - repeat potassium levels every 1 hour until glucose level is less than 450 mg/[id number] 21:10:00 Test Item Value Reference Range Interpretation Comments POTASSIUM (BEAKER) (test code = 3.6 meq/L 3.5-5.1 379) PRN - repeat potassium levels every 1 hour until glucose level is less than 450 mg/[id number] 21:10:00 Test Item Value Reference Range Interpretation Comments MAGNESIUM (BEAKER) (test code = 2.3 mg/dL 1.6-2.6 627) PRN - repeat potassium levels every 1 hour until glucose level is less than 450 mg/dLCALCIUM, [id number] 20:49:00 Test Item Value Reference Range Interpretation Comments CALCIUM IONIZED ([facility]) (test 1.02 mmol/L 1.12-1.27 L code = 698) PH, BLOOD ([facility]) (test code = 7.40 1810) Check serum Ionized Calcium level after 4 hours after IV Calcium replacement. POCT-GLUCOSE [id number] 19:20:00 Test Item Value Reference Range Interpretation Comments POC-GLUCOSE METER 157 mg/dL 70-110 H TESTED AT [place] [address] ([facility]) (test code = [place] [facility] 1538) [id number] POCT-GLUCOSE [id number] 19:20:00 Test Item Value Reference Range Interpretation Comments POC-GLUCOSE METER 108 mg/dL 70-110 TESTED AT [place] [address] ([facility]) (test code = [place] [facility] 1538) [id number] POCT-GLUCOSE [id number] 19:20:00 Test Item Value Reference Range Interpretation Comments POC-GLUCOSE METER 130 mg/dL 70-110 H TESTED AT [place] [address] ([facility]) (test code = [place] [facility] 1538) [address] POCT-GLUCOSE [id number] 19:20:00 Test Item Value Reference Range Interpretation Comments POC-GLUCOSE METER 172 mg/dL 70-110 H TESTED AT [place] [address] ([facility]) (test code = [place] [facility] 1538) [address] POCT-GLUCOSE [id number] 19:20:00 Test Item Value Reference Range Interpretation Comments POC-GLUCOSE METER 215 mg/dL 70-110 H TESTED AT [place] [address] ([facility]) (test code = [place] 1538) [address] [id number] 15:32:00 Test Item Value Reference Range Interpretation Comments POTASSIUM ([facility]) (test code = 3.1 meq/L 3.5-5.1 L 379) PRN - repeat potassium levels every 1 hour until glucose level is less than 450 mg/[id number] 15:32:00 Test Item Value Reference Range Interpretation Comments MAGNESIUM (BEAKER) (test code = 1.9 mg/dL 1.6-2.6 627) PRN - repeat potassium levels every 1 hour until glucose level is less than 450 mg/dLCALCIUM, [id number] 14:59:00 Test Item Value Reference Range Interpretation Comments CALCIUM IONIZED (BEAKER) (test 0.96 mmol/L 1.12-1.27 L code = 698) PH, BLOOD (BEAKER) (test code = 7.46 1810) Check serum Ionized Calcium level after 4 hours after IV Calcium replacement. [id number] 13:11:00 Test Item Value Reference Range Interpretation Comments MAGNESIUM (BEAKER) (test code = 2.0 mg/dL 1.6-2.6 627) BASIC METABOLIC [id number] 10:37:00 Test Item Value Reference Range Interpretation Comments SODIUM (BEAKER) 142 meq/L 136-145 (test code = 381) POTASSIUM (BEAKER) 3.3 meq/L 3.5-5.1 L (test code = 379) CHLORIDE (BEAKER) 104 meq/L 98-107 (test code = 382) CO2 (BEAKER) (test 23 meq/L 22-29 code = 355) BLOOD UREA NITROGEN 20 mg/dL 7-21 (BEAKER) (test code = 354) CREATININE (BEAKER) 0.81 mg/dL 0.57-1.25 (test code = 358) GLUCOSE RANDOM 177 mg/dL 70-105 H (BEAKER) (test code = 652) CALCIUM (BEAKER) 8.0 mg/dL 8.4-10.2 L (test code = 697) EGFR (BEAKER) (test 97 mL/min/1.73 ESTIMA DAVID GFR IS code = 1092) sq m NOT ACCURATE CREATININE CLEARANCE IN PREDICTING GLOMERULAR FILTRATION RATE . ESTIMATED GFR I S NOT APPLICABLE FOR DIALYSIS PATIEN TS. U/S, ABDOMINAL, [id number] 10:24:00Abdomen limited area? Add comment if clarification is needed.->Right upper quadrantReason for exam:->cirrhosis FINAL REPORT TECHNIQUE: Grayscale ultrasound of the right abdomen. INDICATION: 62-year-old man with cirrhosis. COMPARISON: None. FINDINGS: MIDLINE VASCULATURE: The portal vein, inferior vena cava, and abdominal aorta is not clearly visualized secondary to overlying bowel gas and hyperechoic liver. LIVER: The liver is normal in size. Increased echogenicity of the liver, consistent with hepatic steatosis. No definite focal lesions. BILIARY:Gallbladder: No gallstones or sludge. No gallbladder wall thickening, pericholecystic fluid, or distention. Negative sonographic Gonzales sign.Common bile duct is not clearly visualized. No definite intrahepatic biliary ductal dilatation. PANCREAS: Incompletely visualized due to overlying bowel gas. PERITONEUM: No free fluid. RIGHT KIDNEY: Normal in size. No hydronephrosis. No sonographically evident solid mass lesion. IMPRESSION:Suboptimal evaluation of the right abdomen secondary to overlying bowel gas and hyperechoic liver. Hepatic steatosis. No definite focal liver lesions. RECOMMENDATION:Consider abdomen MRI with and without intravenous contrast (liver protocol) for further evaluation. Signed: Evelyn Mcnealeport Verified Date/Time: 08/23/2017 10:24:29 Reading Location: [address] Ultrasound Reading Room SPUTUM CULTURE + GRAM [id number] 09:59:00 Test Item Value Reference Range Interpretation Comments CULTURE (BEAKER) (test See comment code = 1095) GRAM STAIN RESULT 2+ WBCs (BEAKER) (test code = 1123) GRAM STAIN RESULT 5-10 epithelial cells (BEAKER) (test code = 718067) GRAM STAIN RESULT No organisms seen (BEAKER) (test code = 900130) <1+ YeastNo Normal respiratory jessica presentCBC W/PLT COUNT & AUTO [id number] 09:57:00 Test Item Value Reference Range Interpretation Comments WHITE BLOOD CELL COUNT (BEAKER) 9.0 K/ L 3.5-10.5 (test code = 775) RED BLOOD CELL COUNT (BEAKER) 2.60 M/ L 4.63-6.08 L (test code = 761) HEMOGLOBIN (BEAKER) (test code = 8.3 GM/DL 13.7-17.5 L 410) HEMATOCRIT (BEAKER) (test code = 25.8 % 40.1-51.0 L 411) MEAN CORPUSCULAR VOLUME (BEAKER) 99.2 fL 79.0-92.2 H (test code = 753) MEAN CORPUSCULAR HEMOGLOBIN 31.9 pg 25.7-32.2 (BEAKER) (test code = 751) MEAN CORPUSCULAR HEMOGLOBIN CONC 32.2 GM/DL 32.3-36.5 L (BEAKER) (test code = 752) RED CELL DISTRIBUTION WIDTH 13.4 % 11.6-14.4 (BEAKER) (test code = 412) PLATELET COUNT (BEAKER) (test code 90 K/CU MM 150-450 L = 756) MEAN PLATELET VOLUME (BEAKER) 12.5 fL 9.4-12.4 H (test code = 754) NUCLEATED RED BLOOD CELLS (BEAKER) 0 /100 WBC 0-0 (test code = 413) (CELLAVISION MANUAL DIFF)2017-08-23 09:57:00 Test Item Value Reference Range Interpretation Comments NEUTROPHILS - REL 86 % (CELLAVISION)(BEAKER) (test code = 2816) LYMPHOCYTES - REL 8 % (CELLAVISION)(BEAKER) (test code = 2817) MONOCYTES - REL 5 % (CELLAVISION)(BEAKER) (test code = 2818) EOSINOPHILS - REL 1 % (CELLAVISION)(BEAKER) (test code = 2819) NEUTROPHILS - ABS 7.74 K/ul 1.78-5.38 H (CELLAVISION)(BEAKER) (test code = 2830) LYMPHOCYTES - ABS 0.72 K/ul 1.32-3.57 L (CELLAVISION)(BEAKER) (test code = 2831) MONOCYTES - ABS 0.45 K/uL 0.30-0.82 (CELLAVISION)(BEAKER) (test code = 2832) EOSINOPHILS - ABS 0.09 K/uL 0.04-0.54 (CELLAVISION)(BEAKER) (test code = 2834) TOTAL COUNTED (BEAKER) (test code = 100 1351) WBC MORPHOLOGY (BEAKER) (test code Normal = 487) PLT MORPHOLOGY (BEAKER) (test code Normal = 486) ANISOCYTOSIS (BEAKER) (test code = 1+ few 961) MICROCYTES (BEAKER) (test code = 1+ few 965) ARTIFACT (CELLAVISION)(BEAKER) Present (test code = 3432) PLATELET CONCENTRATION Decreased (CELLAVISION)(BEAKER) (test code = 3438) Received comment: User comments: Slide comments:OXYGEN SATURATION, MEASURED 2017-08-23 09:08:00 Test Item Value Reference Range Interpretation Comments O2 SATURATION (MEASURED) ([facility]) 75.1 % (test code = 1455) POCT-GLUCOSE [id number] 09:06:00 Test Item Value Reference Range Interpretation Comments POC-GLUCOSE METER 175 mg/dL 70-110 H TESTED AT [place] [address] ([facility]) (test code = [facility] 1538) [address] POCT-GLUCOSE [id number] 09:06:00 Test Item Value Reference Range Interpretation Comments POC-GLUCOSE METER 108 mg/dL 70-110 TESTED AT [place] [address] ([facility]) (test code = [facility] 1538) [address] POCT-GLUCOSE [id number] 09:06:00 Test Item Value Reference Range Interpretation Comments POC-GLUCOSE METER 95 mg/dL 70-110 TESTED AT [place] [address] ([facility]) (test code = [facility] [address] 1538) POCT-GLUCOSE [id number] 09:06:00 Test Item Value Reference Range Interpretation Comments POC-GLUCOSE METER 120 mg/dL 70-110 H TESTED AT [place] [address] ([facility]) (test code = [facility] 1538) [address] PLATELET AGGREGATION: DRUG [id number] 08:24:00 Test Item Value Reference Range Interpretation Comments STRONG ADP 12 % 70-94 L RESULT(BEAKER) (test code = 2137) WEAK ADP RESULT(BEAKER) 10 % 60-91 L (test code = 2135) ARACHADONIC ACID 0 % 63-89 L RESULT(BEAKER) (test code = 2138) PLATELET AGG DRUG Decreased response to INTERPRETATION (BEAKER) arachidonic acid (test code = 2408) suggests aspirin-like effect. PLATELET AGG DRUG Decreased response to INTERPRETATION (BEAKER) ADP suggest a (test code = 041414) [id number] drug effect. [id number] Chanel Ryder, [facility] (test code = (electronic 1803) signature) PLATELET COUNT AGG 120 K/CU MM 150-450 L (BEAKER) (test code = 2656) RAD, CHEST, 1 VIEW, NON [id number] 07:26:00Reason for exam:->ptxShould this be performed at the bedside?->YesFINAL REPORT Chest one view compared to August 22 Discussion: Cardiac prominence and mild pulmonary congestion are similar. No effusion or pneumothorax. Right IJ line in place. Support tubes noted. Signed: Vandana Todd Verified Date/Time: 08/23/2017 07:26:37 Reading Location: [facility] Radiology Reading Room BLOOD GAS, [id number] 07:25:00 Test Item Value Reference Range Interpretation Comments PH ARTERIAL (BEAKER) (test code = 7.44 7.35-7.45 383) PCO2 ARTERIAL (BEAKER) (test code 46 mmHg 35-45 H = 384) PO2 ARTERIAL (BEAKER) (test code = 84 mmHg 80-90 385) O2 SATURATION ARTERIAL (BEAKER) 96.6 % 96.0-97.0 (test code = 386) HCO3 ARTERIAL (BEAKER) (test code 31 mmol/L 21-29 H = 388) BASE EXCESS ARTERIAL (BEAKER) 5.9 mmol/L -2.0-3.0 H (test code = 387) PATIENT TEMPERATURE (BEAKER) (test 37.1 C code = 1818) FIO2 (BEAKER) (test code = 1819) 80.0 % [id number] 06:34:00 Test Item Value Reference Range Interpretation Comments FERRITIN (BEAKER) (test code = 361) 268 ng/mL 5-275 VITAMIN B12 AND [id number] 06:34:00 Test Item Value Reference Range Interpretation Comments VITAMIN B12 (BEAKER) (test code = 500 pg/mL 213-816 774) FOLATE (BEAKER) (test code = 362) 12.4 ng/mL >=7.0 RETICULOCYTE [id number] 06:01:00 Test Item Value Reference Range Interpretation Comments RETICULOCYTE COUNT PCT (BEAKER) (test 3.2 % 0.5-1.8 H code = 575) IRON, TIBC, % SAT. (WITHOUT FERRITIN)2017-08-23 05:58:00 Test Item Value Reference Range Interpretation Comments IRON (BEAKER) (test code = 547) 18 ug/dL 40-160 L TOTAL IRON BINDING CAPACITY 188 ug/dL 250-450 L (BEAKER) (test code = 769) IRON % SATURATION (2) (BEAKER) 10 % 20-55 L (test code = 2590) [id number] 05:50:00 Test Item Value Reference Range Interpretation Comments MAGNESIUM (BEAKER) (test code = 2.1 mg/dL 1.6-2.6 627) BASIC METABOLIC [id number] 05:50:00 Test Item Value Reference Range Interpretation Comments SODIUM (BEAKER) 143 meq/L 136-145 (test code = 381) POTASSIUM (BEAKER) 3.4 meq/L 3.5-5.1 L (test code = 379) CHLORIDE (BEAKER) 105 meq/L 98-107 (test code = 382) CO2 (BEAKER) (test 28 meq/L 22-29 code = 355) BLOOD UREA NITROGEN 20 mg/dL 7-21 (BEAKER) (test code = 354) CREATININE (BEAKER) 0.78 mg/dL 0.57-1.25 (test code = 358) GLUCOSE RANDOM 112 mg/dL 70-105 H (BEAKER) (test code = 652) CALCIUM (BEAKER) 8.0 mg/dL 8.4-10.2 L (test code = 697) EGFR (BEAKER) (test 101 mL/min/1.73 ESTIM ATED GFR IS code = 1092) sq m NOT ACCURATE CREATININE CLEARANCE IN PREDICTING GLOMERULAR FILTRATION RATE . ESTIMATED GFR I S NOT APPLICABLE FOR DIALYSIS PATIEN TS. CALCIUM, [id number] 05:33:00 Test Item Value Reference Range Interpretation Comments CALCIUM IONIZED (BEAKER) (test 1.02 mmol/L 1.12-1.27 L code = 698) PH, BLOOD (BEAKER) (test code = 7.45 1810) BLOOD GAS, [id number] 05:32:00 Test Item Value Reference Range Interpretation Comments PH ARTERIAL (BEAKER) (test code = 7.45 7.35-7.45 383) PCO2 ARTERIAL (BEAKER) (test code 46 mmHg 35-45 H = 384) PO2 ARTERIAL ([facility]) (test code = 79 mmHg 80-90 L 385) O2 SATURATION ARTERIAL ([facility]) 96.1 % 96.0-97.0 (test code = 386) HCO3 ARTERIAL ([facility]) (test code 31 mmol/L 21-29 H = 388) BASE EXCESS ARTERIAL ([facility]) 6.6 mmol/L -2.0-3.0 H (test code = 387) PATIENT TEMPERATURE ([facility]) (test 37.0 C code = 1818) FIO2 ([facility]) (test code = 1819) 40.0 % POCT-GLUCOSE [id number] 02:47:00 Test Item Value Reference Range Interpretation Comments POC-GLUCOSE METER 137 mg/dL 70-110 H TESTED AT [place] [address] ([facility]) (test code = [place] 1538) [address] POCT-GLUCOSE [id number] 02:47:00 Test Item Value Reference Range Interpretation Comments POC-GLUCOSE METER 171 mg/dL 70-110 H TESTED AT [place] [address] ([facility]) (test code = [place] [facility] 1538) [address] POCT-GLUCOSE [id number] 02:47:00 Test Item Value Reference Range Interpretation Comments POC-GLUCOSE METER 159 mg/dL 70-110 H TESTED AT [place] [address] ([facility]) (test code = [place] 1538) [address] [id number] 00:39:00 Test Item Value Reference Range Interpretation Comments MAGNESIUM ([facility]) (test code = 1.8 mg/dL 1.6-2.6 627) PRN - repeat potassium levels every 1 hour until glucose level is less than 450 mg/[id number] 00:39:00 Test Item Value Reference Range Interpretation Comments POTASSIUM ([facility]) (test code = 3.1 meq/L 3.5-5.1 L 379) PRN - repeat potassium levels every 1 hour until glucose level is less than 450 mg/dLPOCT-GLUCOSE [id number] 23:44:00 Test Item Value Reference Range Interpretation Comments POC-GLUCOSE METER 129 mg/dL 70-110 H TESTED AT [place] [address] ([facility]) (test code = [place] 1538) [id number] POCT-GLUCOSE [id number] 23:44:00 Test Item Value Reference Range Interpretation Comments POC-GLUCOSE METER 130 mg/dL 70-110 H TESTED AT [place] [address] ([facility]) (test code = [facility] [place] [facility] 1538) [address] POCT-GLUCOSE [id number] 23:44:00 Test Item Value Reference Range Interpretation Comments POC-GLUCOSE METER 156 mg/dL 70-110 H TESTED AT [place] [address] ([facility]) (test code = [facility] 1538) [address] POCT-GLUCOSE [id number] 22:17:00 Test Item Value Reference Range Interpretation Comments POC-GLUCOSE METER 173 mg/dL 70-110 H TESTED AT [place] [address] ([facility]) (test code = [facility] 1538) [address] POCT-GLUCOSE [id number] 22:17:00 Test Item Value Reference Range Interpretation Comments POC-GLUCOSE METER 160 mg/dL 70-110 H TESTED AT [place] [address] ([facility]) (test code = [facility] 1538) [address] POCT-GLUCOSE [id number] 18:53:00 Test Item Value Reference Range Interpretation Comments POC-GLUCOSE METER 147 mg/dL 70-110 H TESTED AT [place] [address] ([facility]) (test code = [facility] 1538) [address] POCT-GLUCOSE [id number] 18:53:00 Test Item Value Reference Range Interpretation Comments POC-GLUCOSE METER 157 mg/dL 70-110 H TESTED AT [place] [address] ([facility]) (test code = [facility] 1538) [address] [id number] 17:05:00 Test Item Value Reference Range Interpretation Comments AMMONIA ([facility]) 54 mol/L 18-72 Specimen sl ightly (test code = 348) hemolyzed VANCOMYCIN LEVEL, [id number] 16:53:00 Test Item Value Reference Range Interpretation Comments VANCOMYCIN TROUGH ([facility]) (test 10.8 ug/mL 10.0-20.0 code = 522) Please draw 30 minutes prior to vancomycin due time. Do not administer if vancomycin trough is >20 mcg/mL. Thank you!POCT-GLUCOSE [id number] 16:50:00 Test Item Value Reference Range Interpretation Comments POC-GLUCOSE METER 157 mg/dL 70-110 H TESTED AT [place] [address] ([facility]) (test code = [facility] [place] [facility] 1538) [address] [id number] 16:50:00 Test Item Value Reference Range Interpretation Comments [facility] (test code = 2.1 mg/dL 1.6-2.6 627) POCT-GLUCOSE [id number] 16:50:00 Test Item Value Reference Range Interpretation Comments POC-GLUCOSE METER 141 mg/dL 70-110 H TESTED AT [place] [address] ([facility]) (test code = [facility] 1538) [address] POCT-GLUCOSE [id number] 16:50:00 Test Item Value Reference Range Interpretation Comments POC-GLUCOSE METER 149 mg/dL 70-110 H TESTED AT [place] [address] ([facility]) (test code = [facility] 1538) [address] POCT-GLUCOSE [id number] 16:50:00 Test Item Value Reference Range Interpretation Comments POC-GLUCOSE METER 123 mg/dL 70-110 H TESTED AT [place] [address] ([facility]) (test code = [facility] 1538) [address] POCT-GLUCOSE [id number] 16:50:00 Test Item Value Reference Range Interpretation Comments POC-GLUCOSE METER 105 mg/dL 70-110 TESTED AT [place] [address] ([facility]) (test code = [facility] 1538) [address] [id number] 12:25:00 Test Item Value Reference Range Interpretation Comments PROCALCITONIN (BEAKER) (test code 2.33 ng/mL <0.05 H = 3036) SEPSIS RISK (ng/mL)Low: 0.05-0.50Intermediate: 0.51-2.00High: >=2.01URINALYSIS W/ REFLEX URINE [id number] 11:50:00 Test Item Value Reference Range Interpretation Comments COLOR (BEAKER) (test code = 470) Yellow CLARITY (BEAKER) (test code = 469) Cloudy SPECIFIC GRAVITY UA (BEAKER) (test 1.031 1.001-1.035 code = 468) PH UA (BEAKER) (test code = 467) 5.5 5.0-8.0 PROTEIN UA (BEAKER) (test code = 30 mg/dL Negative A 464) GLUCOSE UA (BEAKER) (test code = Negative Negative 365) KETONES UA (BEAKER) (test code = 10 mg/dL Negative A 371) BILIRUBIN UA (BEAKER) (test code = Negative Negative 462) BLOOD UA (BEAKER) (test code = 461) Negative Negative NITRITE UA (BEAKER) (test code = Negative Negative 465) LEUKOCYTE ESTERASE UA (BEAKER) Negative Negative (test code = 466) UROBILINOGEN UA (BEAKER) (test code 0.2 mg/dL 0.2-1.0 = 463) RBC UA (BEAKER) (test code = 519) 0 /HPF WBC UA (BEAKER) (test code = 520) 0 /HPF BACTERIA (BEAKER) (test code = 517) Moderate CASTS (BEAKER) (test code = 1579) 18 /LPF CRYSTALS, URINE (BEAKER) (test code Few = 1521) SOURCE(BEAKER) (test code = 2795) TROPONIN [id number] 09:25:00 Test Item Value Reference Range Interpretation Comments TROPONIN I (BEAKER) (test code = 1.51 ng/mL 0.00-0.03 HH 397) Troponin I (TnI) levels must be interpreted in the context of the presenting symptoms and the clinical findings. Elevated TnI levels indicate myocardial damage, but are not specific for ischemic heart disease. Elevated TnI levels are seen in patients with other cardiac conditions (including myocarditis and congestive heart failure), and slight TnI elevations occur in patients with other conditions, including sepsis, renal failure, acidosis, acute neurological disease, and persistent tachyarrhythmia.PRN - repeat glucose levels every 1 hour or as specified by insulin titration orders until glucose level is less than 450 mg/dLCheck Serum Potassium level 2 hours after oral potassium replacement completed or 30 min after intravenous potassium replacement.[id number] 09:24:00 Test Item Value Reference Range Interpretation Comments POTASSIUM (BEAKER) (test code = 4.3 meq/L 3.5-5.1 379) PRN - repeat glucose levels every 1 hour or as specified by insulin titration orders until glucose level is less than 450 mg/dLCheck Serum Potassium level 2 hours after oral potassium replacement completed or 30 min after intravenous potassium replacement.[id number] 08:59:00 Test Item Value Reference Range Interpretation Comments GLUCOSE RANDOM (BEAKER) (test code 110 mg/dL 70-105 H = 652) PRN - repeat glucose levels every 1 hour or as specified by insulin titration orders until glucose level is less than 450 mg/dLCheck Serum Potassium level 2 hours after oral potassium replacement completed or 30 min after intravenous potassium replacement.CALCIUM, [id number] 08:43:00 Test Item Value Reference Range Interpretation Comments CALCIUM IONIZED (BEAKER) (test 1.04 mmol/L 1.12-1.27 L code = 698) PH, BLOOD (BEAKER) (test code = 7.47 1810) Check serum Ionized Calcium level after 4 hours after IV Calcium replacement. RAD, CHEST, 1 VIEW, NON [id number] 07:25:00Reason for exam:->ptxShould this be performed at the bedside?->YesFINAL REPORT Chest one view compared to August 21, 2017 Discussion: Support tubes and right IJ line in place. Cardiac prominence is noted. Lungs clear. Drainage tubes visible. No effusion or pneumothorax. Signed: Vandana Todd Verified Date/Time: 08/22/2017 07:25:51 Reading Location: [facility] Radiology Reading Room POCT-GLUCOSE [id number] 06:35:00 Test Item Value Reference Range Interpretation Comments POC-GLUCOSE METER 116 mg/dL 70-110 H TESTED AT [place] [address] ([facility]) (test code = [place] [facility] 1538) [address] POCT-GLUCOSE [id number] 05:20:00 Test Item Value Reference Range Interpretation Comments POC-GLUCOSE METER 136 mg/dL 70-[address] [facility] 6720 ([facility]) ([facility] [place] [facility] 1538) [address] CALCIUM, [id number] 04:22:00 Test Item Value Reference Range Interpretation Comments CALCIUM IONIZED (BEAKER) (test 1.05 mmol/L 1.12-1.27 L code = 698) PH, BLOOD (BEAKER) (test code = 7.47 1810) BLOOD GAS, [id number] 04:17:00 Test Item Value Reference Range Interpretation Comments PH ARTERIAL (BEAKER) (test code = 7.46 7.35-7.45 H 383) PCO2 ARTERIAL (BEAKER) (test code 41 mmHg 35-45 = 384) PO2 ARTERIAL (BEAKER) (test code = 114 mmHg 80-90 H 385) O2 SATURATION ARTERIAL (BEAKER) 98.2 % 96.0-97.0 H (test code = 386) HCO3 ARTERIAL (BEAKER) (test code 28 mmol/L 21-29 = 388) BASE EXCESS ARTERIAL (BEAKER) 4.2 mmol/L -2.0-3.0 H (test code = 387) PATIENT TEMPERATURE (BEAKER) (test 37.9 C code = 1818) FIO2 (BEAKER) (test code = 1819) 40.0 % OXYGEN SATURATION, [id number] 04:11:00 Test Item Value Reference Range Interpretation Comments O2 SATURATION (MEASURED) (BEAKER) 50.9 % (test code = 1455) BASIC METABOLIC [id number] 04:07:00 Test Item Value Reference Range Interpretation Comments SODIUM (BEAKER) 138 meq/L 136-145 (test code = 381) POTASSIUM (BEAKER) 3.8 meq/L 3.5-5.1 (test code = 379) CHLORIDE (BEAKER) 104 meq/L 98-107 (test code = 382) CO2 (BEAKER) (test 25 meq/L 22-29 code = 355) BLOOD UREA NITROGEN 20 mg/dL 7-21 (BEAKER) (test code = 354) CREATININE (BEAKER) 0.81 mg/dL 0.57-1.25 (test code = 358) GLUCOSE RANDOM 138 mg/dL 70-105 H (BEAKER) (test code = 652) CALCIUM (BEAKER) 8.2 mg/dL 8.4-10.2 L (test code = 697) EGFR (BEAKER) (test 97 mL/min/1.73 ESTIMA DAVID GFR IS code = 1092) sq m NOT ACCURATE CREATININE CLEARANCE IN PREDICTING GLOMERULAR FILTRATION RATE . ESTIMATED GFR I S NOT APPLICABLE FOR DIALYSIS PATIEN TS. [id number] 04:06:00 Test Item Value Reference Range Interpretation Comments PHOSPHORUS (BEAKER) (test code = 3.8 mg/dL 2.3-4.7 604) LACTIC ACID, ARTERIAL, WHOLE [id number] 04:05:00 Test Item Value Reference Range Interpretation Comments LACTATE BLOOD ARTERIAL (2) 0.9 mmol/L 0.5-2.2 (BEAKER) (test code = 2874) Effective 06/11/2015: Units/Reference Range ChangeNew: 0.5-2.2 mmol/L Previous: 5-20 mg/[id number] 04:02:00 Test Item Value Reference Range Interpretation Comments MAGNESIUM (BEAKER) (test code = 2.1 mg/dL 1.6-2.6 627) CBC W/PLT COUNT & AUTO [id number] 03:52:00 Test Item Value Reference Range Interpretation Comments WHITE BLOOD CELL COUNT (BEAKER) 8.6 K/ L 3.5-10.5 (test code = 775) RED BLOOD CELL COUNT (BEAKER) 2.76 M/ L 4.63-6.08 L (test code = 761) HEMOGLOBIN (BEAKER) (test code = 8.8 GM/DL 13.7-17.5 L 410) HEMATOCRIT (BEAKER) (test code = 28.0 % 40.1-51.0 L 411) MEAN CORPUSCULAR VOLUME (BEAKER) 101.4 fL 79.0-92.2 H (test code = 753) MEAN CORPUSCULAR HEMOGLOBIN 31.9 pg 25.7-32.2 (BEAKER) (test code = 751) MEAN CORPUSCULAR HEMOGLOBIN CONC 31.4 GM/DL 32.3-36.5 L (BEAKER) (test code = 752) RED CELL DISTRIBUTION WIDTH 13.6 % 11.6-14.4 (BEAKER) (test code = 412) PLATELET COUNT (BEAKER) (test code 92 K/CU MM 150-450 L = 756) MEAN PLATELET VOLUME (BEAKER) 12.4 fL 9.4-12.4 (test code = 754) NUCLEATED RED BLOOD CELLS (BEAKER) 0 /100 WBC 0-0 (test code = 413) NEUTROPHILS RELATIVE PERCENT 79 % (BEAKER) (test code = 429) LYMPHOCYTES RELATIVE PERCENT 13 % (BEAKER) (test code = 430) MONOCYTES RELATIVE PERCENT 8 % (BEAKER) (test code = 431) EOSINOPHILS RELATIVE PERCENT 0 % (BEAKER) (test code = 432) BASOPHILS RELATIVE PERCENT 0 % (BEAKER) (test code = 437) NEUTROPHILS ABSOLUTE COUNT 6.77 K/ L 1.78-5.38 H (BEAKER) (test code = 670) LYMPHOCYTES ABSOLUTE COUNT 1.10 K/ L 1.32-3.57 L (BEAKER) (test code = 414) MONOCYTES ABSOLUTE COUNT (BEAKER) 0.64 K/ L 0.30-0.82 (test code = 415) EOSINOPHILS ABSOLUTE COUNT 0.01 K/ L 0.04-0.54 L (BEAKER) (test code = 416) BASOPHILS ABSOLUTE COUNT (BEAKER) 0.02 K/ L 0.01-0.08 (test code = 417) IMMATURE GRANULOCYTES-RELATIVE 1 % 0-1 PERCENT (BEAKER) (test code = 2801) POCT-GLUCOSE [id number] 03:45:00 Test Item Value Reference Range Interpretation Comments POC-GLUCOSE METER 148 mg/dL 70-110 H TESTED AT [place] [address] ([facility]) (test code = [place] [facility] 1538) [address] POCT-GLUCOSE [id number] 02:36:00 Test Item Value Reference Range Interpretation Comments POC-GLUCOSE METER 155 mg/dL 70-110 H TESTED AT [place] [address] ([facility]) (test code = [place] [facility] 1538) [address] POCT-GLUCOSE [id number] 01:16:00 Test Item Value Reference Range Interpretation Comments POC-GLUCOSE METER 136 mg/dL 70-110 H TESTED AT [place] [address] ([facility]) (test code = [place] [facility] 1538) [address] POCT-GLUCOSE [id number] 00:22:00 Test Item Value Reference Range Interpretation Comments POC-GLUCOSE METER 124 mg/dL 70-110 H TESTED AT [place] [address] ([facility]) (test code = [facility] [place] [facility] 1538) [address] [id number] 23:28:00 Test Item Value Reference Range Interpretation Comments MAGNESIUM (BEAKER) (test code = 1.9 mg/dL 1.6-2.6 627) POCT-GLUCOSE [id number] 23:11:00 Test Item Value Reference Range Interpretation Comments POC-GLUCOSE METER 112 mg/dL 70-110 H TESTED AT [place] [address] ([facility]) (test code = [place] [facility] 1538) [address] POCT-GLUCOSE [id number] 22:02:00 Test Item Value Reference Range Interpretation Comments POC-GLUCOSE METER 132 mg/dL 70-110 H TESTED AT [place] [address] ([facility]) (test code = [place] [facility] 1538) [address]190 POCT-GLUCOSE [id number] 21:40:00 Test Item Value Reference Range Interpretation Comments POC-GLUCOSE METER 130 mg/dL 70-110 H TESTED AT [place] [address] ([facility]) ([facility] [place] [facility] 1538) [address] [id number] 20:58:00 Test Item Value Reference Range Interpretation Comments POTASSIUM (BEAKER) (test code = 3.9 meq/L 3.5-5.1 379) PRN - repeat potassium levels every 1 hour until glucose level is less than 450 mg/dLPOCT-GLUCOSE [id number] 20:31:00 Test Item Value Reference Range Interpretation Comments POC-GLUCOSE METER 111 mg/dL 70-110 H TESTED AT [place] [address] ([facility]) (test code = [facility] [place] [facility] 1538) [address] POCT-GLUCOSE [id number] 19:24:00 Test Item Value Reference Range Interpretation Comments POC-GLUCOSE METER 133 mg/dL 70-110 H TESTED AT [place] [address] ([facility]) (test code = [facility] [place] [facility] 1538) [address] POCT-GLUCOSE [id number] 17:41:00 Test Item Value Reference Range Interpretation Comments POC-GLUCOSE METER 140 mg/dL 70-110 H [facility] AT [place] [address] [facility] (test code = [facility] [place] [facility] 1538) [address] [id number] 16:40:00 Test Item Value Reference Range Interpretation Comments POTASSIUM (BEAKER) (test code = 3.9 meq/L 3.5-5.1 379) PRN - repeat glucose levels every 1 hour or as specified by insulin titration orders until glucose level is less than 450 mg/dLCheck Serum Potassium level 2 hours after oral potassium replacement completed or 30 min after intravenous potassium replacement.[id number] 16:40:00 Test Item Value Reference Range Interpretation Comments MAGNESIUM (BEAKER) (test code = 2.0 mg/dL 1.6-2.6 627) PRN - repeat glucose levels every 1 hour or as specified by insulin titration orders until glucose level is less than 450 mg/dLCheck Serum Potassium level 2 hours after oral potassium replacement completed or 30 min after intravenous potassium replacement.[id number] 16:40:00 Test Item Value Reference Range Interpretation Comments GLUCOSE RANDOM (BEAKER) (test code 131 mg/dL 70-105 H = 652) PRN - repeat glucose levels every 1 hour or as specified by insulin titration orders until glucose level is less than 450 mg/dLCheck Serum Potassium level 2 hours after oral potassium replacement completed or 30 min after intravenous potassium replacement.CALCIUM, [id number] 16:16:00 Test Item Value Reference Range Interpretation Comments CALCIUM IONIZED (BEAKER) (test 1.06 mmol/L 1.12-1.27 L code = 698) PH, BLOOD ([facility]) (test code = 7.42 1810) Check serum Ionized Calcium level after 4 hours after IV Calcium replacement. POCT-GLUCOSE [id number] 16:13:00 Test Item Value Reference Range Interpretation Comments POC-GLUCOSE METER 131 mg/dL 70-110 H TESTED AT [place] [address] ([facility]) (test code = [facility] 1538) [address] POCT-GLUCOSE [id number] 16:13:00 Test Item Value Reference Range Interpretation Comments POC-GLUCOSE METER 133 mg/dL 70-110 H TESTED AT [place] [address] ([facility]) (test code = [facility] 1538) [address] POCT-GLUCOSE [id number] 16:13:00 Test Item Value Reference Range Interpretation Comments POC-GLUCOSE METER 89 mg/dL 70-110 TESTED AT [place] [address] ([facility]) (test code = [facility] [address] 1538) POCT-GLUCOSE [id number] 16:13:00 Test Item Value Reference Range Interpretation Comments POC-GLUCOSE METER 130 mg/dL 70-110 H TESTED AT [place] [address] ([facility]) (test code = [facility] 1538) 8[address] POCT-GLUCOSE [id number] 16:13:00 Test Item Value Reference Range Interpretation Comments POC-GLUCOSE METER 137 mg/dL 70-[address] [facility] 67[address] ([facility]) (test code = [place] 1538) [address] POCT-GLUCOSE [id number] 16:13:00 Test Item Value Reference Range Interpretation Comments POC-GLUCOSE METER 131 mg/dL 70-[address] [facility] 67[address] ([facility]) (test code = [place] 1538) [address] POCT-GLUCOSE [id number] 16:13:00 Test Item Value Reference Range Interpretation Comments POC-GLUCOSE METER 129 mg/dL 70-110 H TESTED AT [place] [address] ([facility]) (test code = [place] 1538) [address] POCT-GLUCOSE [id number] 16:13:00 Test Item Value Reference Range Interpretation Comments POC-GLUCOSE METER 145 mg/dL 70-110 H TESTED AT [place] [address] ([facility]) (test code = [place] 1538) [address] RAD, CHEST, 1 VIEW, NON [id number] 10:45:00Reason for exam:->NEW CENTRAL LINE INSERTION (R) IJ Should this be performed at the bedside?->YesFINAL REPORT HISTORY : NEW CENTRAL LINE INSERTION (R) IJ. Comparison: 08/21/2017 performed earlier Comment: Single portable view of the chest was obtained. The cardiac silhouettesize is enlarged. There has been interval placement of a right-sided internal jugular venous catheter with the tip projecting over the superior vena cava. The remainder of the support lines and tubes are otherwise unchanged. No lytic or blastic abnormalities are seen. No pneumothorax or pleural effusion is visualized. There is some nonspecific patchy bibasilar airspace disease. Signed: Greta Amrenta Verified Date/Time: 08/21/2017 10:45:33 Reading Location: [address] Consult Reading Room CBC W/PLT COUNT & AUTO [id number] 09:55:00 Test Item Value Reference Range Interpretation Comments WHITE BLOOD CELL COUNT ([facility]) 8.5 K/ L 3.5-10.5 (test code = 775) RED BLOOD CELL COUNT (BEAKER) 2.77 M/ L 4.63-6.08 L (test code = 761) HEMOGLOBIN (BEAKER) (test code = 8.9 GM/DL 13.7-17.5 L 410) HEMATOCRIT (BEAKER) (test code = 28.0 % 40.1-51.0 L 411) MEAN CORPUSCULAR VOLUME (BEAKER) 101.1 fL 79.0-92.2 H (test code = 753) MEAN CORPUSCULAR HEMOGLOBIN 32.1 pg 25.7-32.2 (BEAKER) (test code = 751) MEAN CORPUSCULAR HEMOGLOBIN CONC 31.8 GM/DL 32.3-36.5 L (BEAKER) (test code = 752) RED CELL DISTRIBUTION WIDTH 13.7 % 11.6-14.4 (BEAKER) (test code = 412) PLATELET COUNT (BEAKER) (test code 93 K/CU MM 150-450 L = 756) MEAN PLATELET VOLUME (BEAKER) 12.3 fL 9.4-12.4 (test code = 754) NUCLEATED RED BLOOD CELLS (BEAKER) 0 /100 WBC 0-0 (test code = 413) NEUTROPHILS RELATIVE PERCENT 80 % (BEAKER) (test code = 429) LYMPHOCYTES RELATIVE PERCENT 12 % (BEAKER) (test code = 430) MONOCYTES RELATIVE PERCENT 7 % (BEAKER) (test code = 431) EOSINOPHILS RELATIVE PERCENT 0 % (BEAKER) (test code = 432) BASOPHILS RELATIVE PERCENT 0 % (BEAKER) (test code = 437) NEUTROPHILS ABSOLUTE COUNT 6.79 K/ L 1.78-5.38 H (BEAKER) (test code = 670) LYMPHOCYTES ABSOLUTE COUNT 1.03 K/ L 1.32-3.57 L (BEAKER) (test code = 414) MONOCYTES ABSOLUTE COUNT (BEAKER) 0.62 K/ L 0.30-0.82 (test code = 415) EOSINOPHILS ABSOLUTE COUNT 0.00 K/ L 0.04-0.54 L (BEAKER) (test code = 416) BASOPHILS ABSOLUTE COUNT (BEAKER) 0.02 K/ L 0.01-0.08 (test code = 417) IMMATURE GRANULOCYTES-RELATIVE 1 % 0-1 PERCENT (BEAKER) (test code = 2801) POCT-GLUCOSE [id number] 08:19:00 Test Item Value Reference Range Interpretation Comments POC-GLUCOSE METER 117 mg/dL 70-[address] [facility] 67[address] ([facility]) (test code = [place] 1538) [id number] POCT-GLUCOSE [id number] 08:19:00 Test Item Value Reference Range Interpretation Comments POC-GLUCOSE METER 141 mg/dL 70-[address] [facility] 67[address] ([facility]) (test code = [place] 1538) [address] RAD, CHEST, 1 VIEW, NON [id number] 07:34:00Reason for exam:->ETT, CHEST TUBES, PA CATHETERShould this be performed at the bedside?->YesFINAL REPORT HISTORY : ETT, CHEST TUBES, PA CATHETER. Comparison: 08/20/2017 Comment: Single portable view of the chest was obtained. The cardiac silhouette size is enlarged. There has been interval placement of a feeding tube catheter the tip of which is not included on the film. The remainder of the support lines and tubes are otherwise unchanged. No pneumothorax or pleural ef fusion is seen. There is some left basilar airspace disease/consolidation. Signed: Greta Armenta MDReport Verified Date/Time: 08/21/2017 07:34:55 Reading Location: [address] Consult Reading Room VANCOMYCIN LEVEL, [id number] 05:27:00 Test Item Value Reference Range Interpretation Comments VANCOMYCIN RANDOM (BEAKER) (test 6.1 ug/mL code = 523) Reference Range: No NormalsPlease draw 30 minutes prior to vancomycin due time. Do not administer ifvancomycin trough is >20 mcg/mL. Thank you!BLOOD GAS, [id number] 05:23:00 Test Item Value Reference Range Interpretation Comments PH ARTERIAL (BEAKER) (test code = 7.45 7.35-7.45 383) PCO2 ARTERIAL (BEAKER) (test code 43 mmHg 35-45 = 384) PO2 ARTERIAL (BEAKER) (test code = 106 mmHg 80-90 H 385) O2 SATURATION ARTERIAL (BEAKER) 97.9 % 96.0-97.0 H (test code = 386) HCO3 ARTERIAL (BEAKER) (test code 29 mmol/L 21-29 = 388) BASE EXCESS ARTERIAL (BEAKER) 4.3 mmol/L -2.0-3.0 H (test code = 387) PATIENT TEMPERATURE (BEAKER) (test 37.4 C code = 1818) FIO2 (BEAKER) (test code = 1819) 40.0 % [id number] 05:18:00 Test Item Value Reference Range Interpretation Comments PHOSPHORUS (BEAKER) (test code = 3.0 mg/dL 2.3-4.7 604) [id number] 05:18:00 Test Item Value Reference Range Interpretation Comments MAGNESIUM (BEAKER) (test code = 2.0 mg/dL 1.6-2.6 627) BASIC METABOLIC [id number] 05:18:00 Test Item Value Reference Range Interpretation Comments SODIUM (BEAKER) 138 meq/L 136-145 (test code = 381) POTASSIUM (BEAKER) 4.0 meq/L 3.5-5.1 (test code = 379) CHLORIDE (BEAKER) 104 meq/L 98-107 (test code = 382) CO2 (BEAKER) (test 25 meq/L 22-29 code = 355) BLOOD UREA NITROGEN 15 mg/dL 7-21 (BEAKER) (test code = 354) CREATININE (BEAKER) 0.79 mg/dL 0.57-1.25 (test code = 358) GLUCOSE RANDOM 136 mg/dL 70-105 H (BEAKER) (test code = 652) CALCIUM (BEAKER) 8.6 mg/dL 8.4-10.2 (test code = 697) EGFR (BEAKER) (test 99 mL/min/1.73 ESTIMA DAVID GFR IS code = 1092) sq m NOT ACCURATE CREATININE CLEARANCE IN PREDICTING GLOMERULAR FILTRATION RATE . ESTIMATED GFR I S NOT APPLICABLE FOR DIALYSIS PATIEN TS. LACTIC ACID, ARTERIAL, WHOLE [id number] 04:55:00 Test Item Value Reference Range Interpretation Comments LACTATE BLOOD ARTERIAL (2) 0.9 mmol/L 0.5-2.2 (BEAKER) (test code = 2874) Effective 06/11/2015: Units/Reference Range ChangeNew: 0.5-2.2 mmol/L Previous: 5-20 mg/dLOXYGEN SATURATION, [id number] 04:42:00 Test Item Value Reference Range Interpretation Comments O2 SATURATION (MEASURED) ([facility]) 66.0 % (test code = 1455) POCT-GLUCOSE [id number] 03:44:00 Test Item Value Reference Range Interpretation Comments POC-GLUCOSE METER 161 mg/dL 70-110 H TESTED AT [place] [address] ([facility]) (test code = [place] 1538) [address] POCT-GLUCOSE [id number] 02:15:00 Test Item Value Reference Range Interpretation Comments POC-GLUCOSE METER 172 mg/dL 70-110 H TESTED AT [place] [address] ([facility]) (test code = [facility] [place] 1538) [address] POCT-GLUCOSE [id number] 02:15:00 Test Item Value Reference Range Interpretation Comments POC-GLUCOSE METER 180 mg/dL 70-110 H TESTED AT [place] [address] ([facility]) (test code = [facility] [place] 1538) [address] POCT-GLUCOSE [id number] 02:15:00 Test Item Value Reference Range Interpretation Comments POC-GLUCOSE METER 176 mg/dL 70-110 H TESTED AT [place] [address] ([facility]) (test code = [facility] [place] 1538) [address] POCT-GLUCOSE [id number] 02:15:00 Test Item Value Reference Range Interpretation Comments POC-GLUCOSE METER 203 mg/dL 70-110 H TESTED AT [place] [address] ([facility]) (test code = [facility] [place] 1538) [id number] POCT-GLUCOSE [id number] 02:15:00 Test Item Value Reference Range Interpretation Comments POC-GLUCOSE METER 174 mg/dL 70-110 H TESTED AT [place] [address] ([facility]) (test code = [facility] [place] 1538) [address] CALCIUM, [id number] 00:34:00 Test Item Value Reference Range Interpretation Comments CALCIUM IONIZED ([facility]) (test 1.09 mmol/L 1.12-1.27 L code = 698) PH, BLOOD ([facility]) (test code = 7.40 6180) Check serum Ionized Calcium level after 4 hours after IV Calcium replacement. POCT-GLUCOSE [id number] 23:10:00 Test Item Value Reference Range Interpretation Comments POC-GLUCOSE METER 190 mg/dL 70-[address] [facility] 67[address] (BEAKER) (test code = [place] 1538) [address] POCT-GLUCOSE [id number] 23:10:00 Test Item Value Reference Range Interpretation Comments POC-GLUCOSE METER 106 mg/dL 70-[address] [facility] 6720 (BEAKER) (test code = [place] 1538) [address] POCT-GLUCOSE [id number] 23:10:00 Test Item Value Reference Range Interpretation Comments POC-GLUCOSE METER 155 mg/dL 70-[address] [facility] 67[address] (BEAKER) (test code = [place] 1538) [address] [id number] 22:00:00 Test Item Value Reference Range Interpretation Comments MAGNESIUM (BEAKER) (test code = 2.0 mg/dL 1.6-2.6 627) BLOOD GAS, [id number] 21:45:00 Test Item Value Reference Range Interpretation Comments PH ARTERIAL (BEAKER) (test code = 7.37 7.35-7.45 383) PCO2 ARTERIAL (BEAKER) (test code 46 mmHg 35-45 H = 384) PO2 ARTERIAL (BEAKER) (test code = 102 mmHg 80-90 H 385) O2 SATURATION ARTERIAL (BEAKER) 97.2 % 96.0-97.0 H (test code = 386) HCO3 ARTERIAL (BEAKER) (test code 26 mmol/L 21-29 = 388) BASE EXCESS ARTERIAL (BEAKER) 0.8 mmol/L -2.0-3.0 (test code = 387) PATIENT TEMPERATURE (BEAKER) (test 37.9 C code = 1818) FIO2 (BEAKER) (test code = 1819) 40.0 % RAD, ABDOMEN/KUB, 1 VIEW [id number] 21:38:00Reason for exam:->corpak placementFINAL REPORT RAD, ABDOMEN/KUB, 1 VIEW AP CLINICAL INDICATION: "corpak placement" COMPARISON: Abdominal x-ray 9 hours ago TECHNIQUE: Single, frontal radiograph of the abdomen. IMPRESSION: Weighted enteric tube terminates in the expected location of the pylorus. Overall little significant change in positioning since the prior exam.Nonspecific nonobstructive bowel gas pattern.No pneumatosis or obvious pneumoperitoneum.No acute osseous abnormality. Signed: Sandip Fox MDReport Verified Date/Time: 08/20/2017 21:38:34 Reading Location: [facility] C013 Transitional Reading Room CALCIUM, [id number] 18:48:00 Test Item Value Reference Range Interpretation Comments CALCIUM IONIZED (BEAKER) (test 1.08 mmol/L 1.12-1.27 L code = 698) PH, BLOOD (BEAKER) (test code = 7.48 1810) BASIC METABOLIC [id number] 18:14:00 Test Item Value Reference Range Interpretation Comments SODIUM (BEAKER) 140 meq/L 136-145 (test code = 381) POTASSIUM (BEAKER) 4.0 meq/L 3.5-5.1 (test code = 379) CHLORIDE (BEAKER) 106 meq/L 98-107 (test code = 382) CO2 (BEAKER) (test 27 meq/L 22-29 code = 355) BLOOD UREA NITROGEN 12 mg/dL 7-21 (BEAKER) (test code = 354) CREATININE (BEAKER) 0.87 mg/dL 0.57-1.25 (test code = 358) GLUCOSE RANDOM 117 mg/dL 70-105 H (BEAKER) (test code = 652) CALCIUM (BEAKER) 8.7 mg/dL 8.4-10.2 (test code = 697) EGFR (BEAKER) (test 89 mL/min/1.73 ESTIMA DAVID GFR IS code = 1092) sq m NOT ACCURATE CREATININE CLEARANCE IN PREDICTING GLOMERULAR FILTRATION RATE . ESTIMATED GFR I S NOT APPLICABLE FOR DIALYSIS PATIEN TS. LACTIC ACID, VENOUS, WHOLE [id number] 18:07:00 Test Item Value Reference Range Interpretation Comments LACTATE BLOOD VENOUS (2) (BEAKER) 0.7 mmol/L 0.5-2.2 (test code = 2872) Effective 06/11/2015: Units/Reference Range ChangeNew: 0.5-2.2 mmol/L Previous: 5-20 mg/dLCBC W/PLT COUNT & AUTO [id number] 17:37:00 Test Item Value Reference Range Interpretation Comments WHITE BLOOD CELL COUNT (BEAKER) 10.4 K/ L 3.5-10.5 (test code = 775) RED BLOOD CELL COUNT (BEAKER) 2.74 M/ L 4.63-6.08 L (test code = 761) HEMOGLOBIN (BEAKER) (test code = 8.8 GM/DL 13.7-17.5 L 410) HEMATOCRIT (BEAKER) (test code = 27.5 % 40.1-51.0 L 411) MEAN CORPUSCULAR VOLUME (BEAKER) 100.4 fL 79.0-92.2 H (test code = 753) MEAN CORPUSCULAR HEMOGLOBIN 32.1 pg 25.7-32.2 (BEAKER) (test code = 751) MEAN CORPUSCULAR HEMOGLOBIN CONC 32.0 GM/DL 32.3-36.5 L (BEAKER) (test code = 752) RED CELL DISTRIBUTION WIDTH 14.0 % 11.6-14.4 (BEAKER) (test code = 412) PLATELET COUNT (BEAKER) (test code 84 K/CU MM 150-450 L = 756) MEAN PLATELET VOLUME (BEAKER) 11.6 fL 9.4-12.4 (test code = 754) NUCLEATED RED BLOOD CELLS (BEAKER) 0 /100 WBC 0-0 (test code = 413) BLOOD GAS, [id number] 17:06:00 Test Item Value Reference Range Interpretation Comments PH ARTERIAL (BEAKER) (test code = 7.39 7.35-7.45 383) PCO2 ARTERIAL (BEAKER) (test code 53 mmHg 35-45 H = 384) PO2 ARTERIAL (BEAKER) (test code = 106 mmHg 80-90 H 385) O2 SATURATION ARTERIAL (BEAKER) 97.4 % 96.0-97.0 H (test code = 386) HCO3 ARTERIAL (BEAKER) (test code 31 mmol/L 21-29 H = 388) BASE EXCESS ARTERIAL (BEAKER) 5.3 mmol/L -2.0-3.0 H (test code = 387) PATIENT TEMPERATURE (BEAKER) (test 38.3 C code = 1818) FIO2 (BEAKER) (test code = 1819) 40.0 % [id number] 15:08:00 Test Item Value Reference Range Interpretation Comments POTASSIUM (BEAKER) (test code = 4.0 meq/L 3.5-5.1 379) Check Serum Potassium level 2 hours after oral potassium replacement completed or 30 min after intravenous potassium replacement.[id number] 15:08:00 Test Item Value Reference Range Interpretation Comments MAGNESIUM (BEAKER) (test code = 1.9 mg/dL 1.6-2.6 627) Check Serum Potassium level 2 hours after oral potassium replacement completed or 30 min after intravenous potassium replacement.CALCIUM, [id number] 14:56:00 Test Item Value Reference Range Interpretation Comments CALCIUM IONIZED (BEAKER) (test 1.07 mmol/L 1.12-1.27 L code = 698) PH, BLOOD (BEAKER) (test code = 7.43 1810) Check serum Ionized Calcium level after 4 hours after IV Calcium replacement. RAD, ABDOMEN/KUB, 1 VIEW [id number] 12:00:00Reason for exam:->corpak placementShould this be performed at the bedside?->YesFINAL REPORT History: Corpak placement COMPARISON: None DISCUSSION: Two images , single view of the abdomen were submitted for interpretation. A feeding tube catheter is seen withthe tip projecting over the distal stomach. Multiple support lines, tubes and hardware are seen overthe upper abdomen. There is a suspected small left-sided pleural effusion. There is some left basilar airspace disease. Signed: Greta Armentaort Verified Date/Time: 08/20/2017 12:00:17 Reading Location: [address] Consult Reading Room POCT-GLUCOSE [id number] 11:57:00 Test Item Value Reference Range Interpretation Comments POC-GLUCOSE METER 186 mg/dL 70-[address] [facility] 67[address] (BEAKER) (test code = [place] 1538) [id number] OXYGEN SATURATION, [id number] 11:00:00 Test Item Value Reference Range Interpretation Comments O2 SATURATION (MEASURED) (BEAKER) 67.6 % (test code = 1455) CBC W/PLT COUNT & AUTO [id number] 10:47:00 Test Item Value Reference Range Interpretation Comments WHITE BLOOD CELL COUNT (BEAKER) 10.2 K/ L 3.5-10.5 (test code = 775) RED BLOOD CELL COUNT (BEAKER) 2.81 M/ L 4.63-6.08 L (test code = 761) HEMOGLOBIN (BEAKER) (test code = 8.9 GM/DL 13.7-17.5 L 410) HEMATOCRIT (BEAKER) (test code = 28.4 % 40.1-51.0 L 411) MEAN CORPUSCULAR VOLUME (BEAKER) 101.1 fL 79.0-92.2 H (test code = 753) MEAN CORPUSCULAR HEMOGLOBIN 31.7 pg 25.7-32.2 (BEAKER) (test code = 751) MEAN CORPUSCULAR HEMOGLOBIN CONC 31.3 GM/DL 32.3-36.5 L (BEAKER) (test code = 752) RED CELL DISTRIBUTION WIDTH 13.9 % 11.6-14.4 (BEAKER) (test code = 412) PLATELET COUNT (BEAKER) (test code 91 K/CU MM 150-450 L = 756) MEAN PLATELET VOLUME (BEAKER) 11.9 fL 9.4-12.4 (test code = 754) NUCLEATED RED BLOOD CELLS (BEAKER) 0 /100 WBC 0-0 (test code = 413) (CELLAVISION MANUAL DIFF)[id number] 10:47:00 Test Item Value Reference Range Interpretation Comments NEUTROPHILS - REL 76 % (CELLAVISION)(BEAKER) (test code = 2816) LYMPHOCYTES - REL 14 % (CELLAVISION)(BEAKER) (test code = 2817) MONOCYTES - REL 5 % (CELLAVISION)(BEAKER) (test code = 2818) BASOPHILS - REL 1 % (CELLAVISION)(BEAKER) (test code = 2820) BANDS - REL (CELLAVISION)(BEAKER) 4 % 0-10 (test code = 2826) NEUTROPHILS - ABS 7.75 K/ul 1.78-5.38 H (CELLAVISION)(BEAKER) (test code = 2830) LYMPHOCYTES - ABS 1.43 K/ul 1.32-3.57 (CELLAVISION)(BEAKER) (test code = 2831) MONOCYTES - ABS 0.51 K/uL 0.30-0.82 (CELLAVISION)(BEAKER) (test code = 2832) BASOPHILS - ABS 0.10 K/uL 0.01-0.08 H (CELLAVISION)(BEAKER) (test code = 2835) BANDS - ABS (CELLAVISION)(BEAKER) 0.41 K/uL 0.00-0.80 (test code = 2840) TOTAL COUNTED (BEAKER) (test code 100 = 1351) WBC MORPHOLOGY (BEAKER) (test Normal code = 487) GIANT PLATELETS (BEAKER) (test Present code = 313) LARGE PLT(BEAKER) (test code = Present 2156) POLYCHROMATOPHILLIC RBCS(BEAKER) 1+ few (test code = 478) HYPOCHROMIA (BEAKER) (test code = 2+ moderate 963) ANISOCYTOSIS (BEAKER) (test code 1+ few = 961) MACROCYTES (BEAKER) (test code = 1+ few 964) POIKILOCYTES (BEAKER) (test code 1+ few = 966) OVALOCYTES (BEAKER) (test code = 1+ few 477) ARTIFACT (CELLAVISION)(BEAKER) Present (test code = 3432) PLATELET CONCENTRATION Decreased (CELLAVISION)(BEAKER) (test code = 3438) Received comment: User comments: Slide comments:LACTIC ACID, ARTERIAL, WHOLE [id number] 09:18:00 Test Item Value Reference Range Interpretation Comments LACTATE BLOOD ARTERIAL (2) 1.0 mmol/L 0.5-2.2 (BEAKER) (test code = 2874) Effective 06/11/2015: Units/Reference Range ChangeNew: 0.5-2.2 mmol/L Previous: 5-20 mg/dLPOCT-GLUCOSE [id number] 09:15:00 Test Item Value Reference Range Interpretation Comments POC-GLUCOSE METER 220 mg/dL 70-[address] [facility] 6720 (BEAKER) (test code = [place] 1538) [address] POCT-GLUCOSE [id number] 09:15:00 Test Item Value Reference Range Interpretation Comments POC-GLUCOSE METER 203 mg/dL 70-[address] [facility] 6720 (BEAKER) (test code = [place] 1538) [address] POCT-GLUCOSE [id number] 09:15:00 Test Item Value Reference Range Interpretation Comments POC-GLUCOSE METER 35 mg/dL 70-110 LL TESTED AT [place] [address] ([facility]) (test code = [place] [address] 1538) POCT-GLUCOSE [id number] 09:15:00 Test Item Value Reference Range Interpretation Comments POC-GLUCOSE METER 110 mg/dL 70-110 TESTED AT [place] [address] ([facility]) (test code = [place] [facility] 1538) [address] POCT-GLUCOSE [id number] 09:15:00 Test Item Value Reference Range Interpretation Comments POC-GLUCOSE METER 118 mg/dL 70-110 H TESTED AT [place] [address] ([facility]) (test code = [place] [facility] 1538) [address] POCT-GLUCOSE [id number] 09:15:00 Test Item Value Reference Range Interpretation Comments POC-GLUCOSE METER 126 mg/dL 70-110 H TESTED AT [place] [address] ([facility]) (test code = [place] [facility] 1538) [address] RAD, CHEST, 1 VIEW, NON [id number] 07:52:00Reason for exam:->ETT, CHEST TUBES, PA CATHETERShould this be performed at the bedside?->YesFINAL REPORT Chest one view compared to August 19 Discussion: Interstitial congestion is similar. ET tube and left IJ line again noted. Left costophrenic angle excluded from the image. No gross effusion or pneumothorax. No visible pulmonary artery access. Signed: Vandana Todd Verified Date/Time: 08/20/2017 07:52:29 Reading Location: [address], BRAIN, WITHOUT [id number] 05:11:00FINAL REPORT CT, BRAIN, WITHOUT CONTRAST INDICATION: "Confusion/delirium, altered LOC, unexplained" TECHNIQUE: Noncontrast axial imaging was obtained from the vertex to the skullbase. Axial images were reconstructed using a bone algorithm. DOSE REDUCTION: Dose modulation, iterative reconstruction, and/or weight-based adjustment of the mA/kV was utilized to reduce the radiationdose to as low as reasonably achievable. COMPARISON: None. FINDINGS: Midline structures and posterior fossa within normal limits.No subacute territorial infarction or hyperdense thrombus.No acute intracranial hemorrhage.No acute hydrocephalus. Intact calvarium.Symmetric globes.Mild paranasal sinus mucosal disease. IMPRESSION: No acute intracranial abnormality. Signed: Sandip Fox MDReport Verified Date/Time: 08/20/2017 05:11:47 Reading Location: [address] Transitional Reading Room OXYGEN SATURATION, [id number] 05:10:00 Test Item Value Reference Range Interpretation Comments O2 SATURATION (MEASURED) (BEAKER) 65.8 % (test code = 1455) BLOOD GAS, [id number] 04:57:00 Test Item Value Reference Range Interpretation Comments PH ARTERIAL (BEAKER) (test code = 7.40 7.35-7.45 383) PCO2 ARTERIAL (BEAKER) (test code 45 mmHg 35-45 = 384) PO2 ARTERIAL (BEAKER) (test code = 86 mmHg 80-90 385) O2 SATURATION ARTERIAL (BEAKER) 96.3 % 96.0-97.0 (test code = 386) HCO3 ARTERIAL (BEAKER) (test code 28 mmol/L 21-29 = 388) BASE EXCESS ARTERIAL (BEAKER) 2.6 mmol/L -2.0-3.0 (test code = 387) PATIENT TEMPERATURE (BEAKER) (test 37.4 C code = 1818) FIO2 (BEAKER) (test code = 1819) 40.0 % [id number] 04:49:00 Test Item Value Reference Range Interpretation Comments PHOSPHORUS (BEAKER) (test code = 3.9 mg/dL 2.3-4.7 604) [id number] 04:49:00 Test Item Value Reference Range Interpretation Comments MAGNESIUM (BEAKER) (test code = 2.1 mg/dL 1.6-2.6 627) BASIC METABOLIC [id number] 04:49:00 Test Item Value Reference Range Interpretation Comments SODIUM (BEAKER) 141 meq/L 136-145 (test code = 381) POTASSIUM (BEAKER) 4.6 meq/L 3.5-5.1 (test code = 379) CHLORIDE (BEAKER) 110 meq/L 98-107 H (test code = 382) CO2 (BEAKER) (test 23 meq/L 22-29 code = 355) BLOOD UREA NITROGEN 11 mg/dL 7-21 (BEAKER) (test code = 354) CREATININE (BEAKER) 0.90 mg/dL 0.57-1.25 (test code = 358) GLUCOSE RANDOM 226 mg/dL 70-105 H (BEAKER) (test code = 652) CALCIUM (BEAKER) 8.4 mg/dL 8.4-10.2 (test code = 697) EGFR (BEAKER) (test 86 mL/min/1.73 ESTIMA DAVID GFR IS code = 1092) sq m NOT ACCURATE CREATININE CLEARANCE IN PREDICTING GLOMERULAR FILTRATION RATE . ESTIMATED GFR I S NOT APPLICABLE FOR DIALYSIS PATIEN TS. BLOOD GAS, [id number] 01:31:00 Test Item Value Reference Range Interpretation Comments PH ARTERIAL (BEAKER) (test code = 7.44 7.35-7.45 383) PCO2 ARTERIAL (BEAKER) (test code 40 mmHg 35-45 = 384) PO2 ARTERIAL (BEAKER) (test code = 92 mmHg 80-90 H 385) O2 SATURATION ARTERIAL (BEAKER) 97.0 % 96.0-97.0 (test code = 386) HCO3 ARTERIAL (BEAKER) (test code 26 mmol/L 21-29 = 388) BASE EXCESS ARTERIAL (BEAKER) 2.4 mmol/L -2.0-3.0 (test code = 387) PATIENT TEMPERATURE (BEAKER) (test 37.9 C code = 1818) FIO2 (BEAKER) (test code = 1819) 40.0 % LACTIC ACID, ARTERIAL, WHOLE [id number] 00:02:00 Test Item Value Reference Range Interpretation Comments LACTATE BLOOD ARTERIAL (2) 1.2 mmol/L 0.5-2.2 (BEAKER) (test code = 2874) Effective 06/11/2015: Units/Reference Range ChangeNew: 0.5-2.2 mmol/L Previous: 5-20 mg/[id number] 00:01:00 Test Item Value Reference Range Interpretation Comments MAGNESIUM (BEAKER) (test code = 1.7 mg/dL 1.6-2.6 627) SODIUM NA-STAT [id number] 23:24:00 Test Item Value Reference Range Interpretation Comments SODIUM (BEAKER) (test code = 381) 141 meq/L 135-148 POTASSIUM-STAT [id number] 23:24:00 Test Item Value Reference Range Interpretation Comments POTASSIUM (BEAKER) (test code = 5.3 meq/L 3.6-5.5 379) CALCIUM, [id number] 23:24:00 Test Item Value Reference Range Interpretation Comments CALCIUM IONIZED (BEAKER) (test 1.20 mmol/L 1.12-1.27 code = 698) PH, BLOOD (BEAKER) (test code = 7.39 1810) Check serum Ionized Calcium level after 4 hours after IV Calcium replacement. BLOOD GAS, [id number] 23:24:00 Test Item Value Reference Range Interpretation Comments PH ARTERIAL (BEAKER) (test code = 7.37 7.35-7.45 383) PCO2 ARTERIAL (BEAKER) (test code 48 mmHg 35-45 H = 384) PO2 ARTERIAL (BEAKER) (test code = 169 mmHg 80-90 H 385) O2 SATURATION ARTERIAL (BEAKER) 99.0 % 96.0-97.0 H (test code = 386) HCO3 ARTERIAL (BEAKER) (test code 27 mmol/L 21-29 = 388) BASE EXCESS ARTERIAL (BEAKER) 1.6 mmol/L -2.0-3.0 (test code = 387) PATIENT TEMPERATURE (BEAKER) (test 38.3 C code = 1818) FIO2 (BEAKER) (test code = 1819) 60.0 % GLUCOSE-STAT [id number] 23:24:00 Test Item Value Reference Range Interpretation Comments GLUCOSE RANDOM (BEAKER) (test code 204 mg/dL 70-110 H = 652) HGB/HCT (H&H) - STAT [id number] 23:24:00 Test Item Value Reference Range Interpretation Comments HEMOGLOBIN (BEAKER) (test code = 10.4 g/dL 13.0-16.8 L 410) HEMATOCRIT (BEAKER) (test code = 31.0 % 40.0-50.0 L 411) OXYGEN SATURATION, [id number] 23:23:00 Test Item Value Reference Range Interpretation Comments O2 SATURATION (MEASURED) (BEAKER) 68.4 % (test code = 1455) LACTIC ACID, ARTERIAL, WHOLE [id number] 22:05:00 Test Item Value Reference Range Interpretation Comments LACTATE BLOOD ARTERIAL (2) 1.4 mmol/L 0.5-2.2 (BEAKER) (test code = 2874) Effective 06/11/2015: Units/Reference Range ChangeNew: 0.5-2.2 mmol/L Previous: 5-20 mg/[id number] 22:03:00 Test Item Value Reference Range Interpretation Comments MAGNESIUM (BEAKER) (test code = 1.8 mg/dL 1.6-2.6 627) CALCIUM, [id number] 21:46:00 Test Item Value Reference Range Interpretation Comments CALCIUM IONIZED (BEAKER) (test 1.44 mmol/L 1.12-1.27 H code = 698) PH, BLOOD (BEAKER) (test code = 7.37 1810) BLOOD GAS, [id number] 21:44:00 Test Item Value Reference Range Interpretation Comments PH ARTERIAL (BEAKER) (test code = 7.36 7.35-7.45 383) PCO2 ARTERIAL (BEAKER) (test code 46 mmHg 35-45 H = 384) PO2 ARTERIAL (BEAKER) (test code 131 mmHg 80-90 H = 385) O2 SATURATION ARTERIAL (BEAKER) 98.4 % 96.0-97.0 H (test code = 386) HCO3 ARTERIAL (BEAKER) (test code 25 mmol/L 21-29 = 388) BASE EXCESS ARTERIAL (BEAKER) -0.5 mmol/L -2.0-3.0 (test code = 387) PATIENT TEMPERATURE (BEAKER) 37.5 C (test code = 1818) FIO2 (BEAKER) (test code = 1819) 50.0 % GLUCOSE-STAT [id number] 21:44:00 Test Item Value Reference Range Interpretation Comments GLUCOSE RANDOM (BEAKER) (test code 197 mg/dL 70-110 H = 652) HGB/HCT (H&H) - STAT [id number] 21:44:00 Test Item Value Reference Range Interpretation Comments HEMOGLOBIN (BEAKER) (test code = 11.3 g/dL 13.0-16.8 L 410) HEMATOCRIT (BEAKER) (test code = 33.0 % 40.0-50.0 L 411) SODIUM NA-STAT [id number] 21:43:00 Test Item Value Reference Range Interpretation Comments SODIUM (BEAKER) (test code = 381) 141 meq/L 135-148 POTASSIUM-STAT [id number] 21:43:00 Test Item Value Reference Range Interpretation Comments POTASSIUM (BEAKER) (test code = 4.6 meq/L 3.6-5.5 379) RAD, CHEST, 1 VIEW, NON [id number] 20:58:00Reason for exam:- >intubationShould this be performed at the bedside?->YesFINAL REPORT Chest, portable AP view History: Intubation Comparison: Earlier the same day at 9:11 AM IMPRESSION: The tip of the endotracheal tube is approximately 4.7 cm above the waqas. The heart is stably enlarged. Patient status post median sternotomy. There is been intervalremoval of the Mabie-Marya catheter. Left basilar chest tubes in place. There is a trace left apical pn eumothorax. Interval placement of a left IJ central venous catheter with the distal catheter tip at the innominate SVC junction. Bibasilar atelectasis persists. Signed: Emanuel Wilson [facility] Verified Date/Time: 08/19/2017 20:58:35 Reading Location: [facility] [id number] Consult Reading Room OXYGEN SATURATION, [id number] 19:16:00 Test Item Value Reference Range Interpretation Comments O2 SATURATION (MEASURED) (BEAKER) 67.8 % (test code = 1455) BLOOD GAS, [id number] 19:07:00 Test Item Value Reference Range Interpretation Comments PH ARTERIAL (BEAKER) (test code = 7.41 7.35-7.45 383) PCO2 ARTERIAL (BEAKER) (test code 40 mmHg 35-45 = 384) PO2 ARTERIAL (BEAKER) (test code = 81 mmHg 80-90 385) O2 SATURATION ARTERIAL (BEAKER) 95.3 % 96.0-97.0 L (test code = 386) HCO3 ARTERIAL (BEAKER) (test code 25 mmol/L 21-29 = 388) BASE EXCESS ARTERIAL (BEAKER) 0.5 mmol/L -2.0-3.0 (test code = 387) PATIENT TEMPERATURE (BEAKER) (test 38.3 C code = 1818) FIO2 (BEAKER) (test code = 1819) 100.0 % GLUCOSE-STAT [id number] 19:07:00 Test Item Value Reference Range Interpretation Comments GLUCOSE RANDOM (BEAKER) (test code 144 mg/dL 70-110 H = 652) POCT-GLUCOSE [id number] 17:11:00 Test Item Value Reference Range Interpretation Comments POC-GLUCOSE METER 108 mg/dL 70-[address] [facility] 6720 (BEAKER) (test code = [place] 1538) [address] BLOOD GAS, [id number] 16:53:00 Test Item Value Reference Range Interpretation Comments PH ARTERIAL (BEAKER) (test code = 7.41 7.35-7.45 383) PCO2 ARTERIAL (BEAKER) (test code 46 mmHg 35-45 H = 384) PO2 ARTERIAL (BEAKER) (test code = 222 mmHg 80-90 H 385) O2 SATURATION ARTERIAL (BEAKER) 99.5 % 96.0-97.0 H (test code = 386) HCO3 ARTERIAL (BEAKER) (test code 28 mmol/L 21-29 = 388) BASE EXCESS ARTERIAL (BEAKER) 2.9 mmol/L -2.0-3.0 (test code = 387) PATIENT TEMPERATURE (BEAKER) (test 38.2 C code = 1818) FIO2 (BEAKER) (test code = 1819) 100.0 % BLOOD GAS, [id number] 14:09:00 Test Item Value Reference Range Interpretation Comments PH ARTERIAL (BEAKER) (test code = 7.39 7.35-7.45 383) PCO2 ARTERIAL (BEAKER) (test code 39 mmHg 35-45 = 384) PO2 ARTERIAL (BEAKER) (test code 61 mmHg 80-90 L = 385) O2 SATURATION ARTERIAL (BEAKER) 89.8 % 96.0-97.0 L (test code = 386) HCO3 ARTERIAL (BEAKER) (test code 23 mmol/L 21-29 = 388) BASE EXCESS ARTERIAL (BEAKER) -1.6 mmol/L -2.0-3.0 (test code = 387) PATIENT TEMPERATURE (BEAKER) 38.1 C (test code = 1818) FIO2 (BEAKER) (test code = 1819) 44.0 % TROPONIN [id number] 12:55:00 Test Item Value Reference Range Interpretation Comments TROPONIN I (BEAKER) (test code = 2.27 ng/mL 0.00-0.03 HH 397) Troponin I (TnI) levels must be interpreted in the context of the presenting symptoms and the clinical findings. Elevated TnI levels indicate myocardial damage, but are not specific for ischemic heart disease. Elevated TnI levels are seen in patients with other cardiac conditions (including myocarditis and congestive heart failure), and slight TnI elevations occur in patients with other conditions, including sepsis, renal failure, acidosis, acute neurological disease, and persistent tachyarrhythmia.COMPREHENSIVE METABOLIC [id number] 12:20:00 Test Item Value Reference Range Interpretation Comments TOTAL PROTEIN 5.2 gm/dL 6.0-8.3 L (BEAKER) (test code = 770) ALBUMIN (BEAKER) 3.2 g/dL 3.5-5.0 L (test code = 1145) ALKALINE PHOSPHATASE 64 U/L 40-150 (BEAKER) (test code = 346) BILIRUBIN TOTAL 0.8 mg/dL 0.2-1.2 (BEAKER) (test code = 377) SODIUM (BEAKER) (test 144 meq/L 136-145 code = 381) POTASSIUM (BEAKER) 4.5 meq/L 3.5-5.1 (test code = 379) CHLORIDE (BEAKER) 111 meq/L 98-107 H (test code = 382) CO2 (BEAKER) (test 22 meq/L 22-29 code = 355) BLOOD UREA NITROGEN 10 mg/dL 7-21 (BEAKER) (test code = 354) CREATININE (BEAKER) 0.89 mg/dL 0.57-1.25 (test code = 358) GLUCOSE RANDOM 116 mg/dL 70-105 H (BEAKER) (test code = 652) CALCIUM (BEAKER) 8.9 mg/dL 8.4-10.2 (test code = 697) AST (SGOT) (BEAKER) 52 U/L 5-34 H (test code = 353) ALT (SGPT) (BEAKER) 20 U/L 6-55 (test code = 347) EGFR (BEAKER) (test 87 mL/min/1.73 ESTIMA DAVID GFR IS code = 1092) sq m NOT ACCURATE CREATININE CLEARANCE IN PREDICTING GLOMERULAR FILTRATION RATE . ESTIMATED GFR I S NOT APPLICABLE FOR DIALYSIS PATIEN TS. [id number] 12:19:00 Test Item Value Reference Range Interpretation Comments MAGNESIUM (BEAKER) (test code = 1.9 mg/dL 1.6-2.6 627) BASIC METABOLIC [id number] 12:19:00 Test Item Value Reference Range Interpretation Comments SODIUM (BEAKER) 144 meq/L 136-145 (test code = 381) POTASSIUM (BEAKER) 3.9 meq/L 3.5-5.1 (test code = 379) CHLORIDE (BEAKER) 111 meq/L 98-107 H (test code = 382) CO2 (BEAKER) (test 24 meq/L 22-29 code = 355) BLOOD UREA NITROGEN 10 mg/dL 7-21 (BEAKER) (test code = 354) CREATININE (BEAKER) 0.87 mg/dL 0.57-1.25 (test code = 358) GLUCOSE RANDOM 118 mg/dL 70-105 H (BEAKER) (test code = 652) CALCIUM (BEAKER) 8.9 mg/dL 8.4-10.2 (test code = 697) EGFR (BEAKER) (test 89 mL/min/1.73 ESTIMA DAVID GFR IS code = 1092) sq m NOT ACCURATE CREATININE CLEARANCE IN PREDICTING GLOMERULAR FILTRATION RATE . ESTIMATED GFR I S NOT APPLICABLE FOR DIALYSIS PATIEN TS. LACTIC ACID, ARTERIAL, WHOLE [id number] 12:16:00 Test Item Value Reference Range Interpretation Comments LACTATE BLOOD ARTERIAL (2) 3.1 mmol/L 0.5-2.2 H (BEAKER) (test code = 2874) Effective 06/11/2015: Units/Reference Range ChangeNew: 0.5-2.2 mmol/L Previous: 5-20 mg/dLCALCIUM, [id number] 12:04:00 Test Item Value Reference Range Interpretation Comments CALCIUM IONIZED (BEAKER) (test 1.13 mmol/L 1.12-1.27 code = 698) PH, BLOOD (BEAKER) (test code = 7.43 1810) CBC (HEMOGRAM ONLY)2017-08-19 12:02:00 Test Item Value Reference Range Interpretation Comments WHITE BLOOD CELL COUNT (BEAKER) 11.9 K/ L 3.5-10.5 H (test code = 775) RED BLOOD CELL COUNT (BEAKER) 3.25 M/ L 4.63-6.08 L (test code = 761) HEMOGLOBIN (BEAKER) (test code = 10.4 GM/DL 13.7-17.5 L 410) HEMATOCRIT (BEAKER) (test code = 31.3 % 40.1-51.0 L 411) MEAN CORPUSCULAR VOLUME (BEAKER) 96.3 fL 79.0-92.2 H (test code = 753) MEAN CORPUSCULAR HEMOGLOBIN 32.0 pg 25.7-32.2 (BEAKER) (test code = 751) MEAN CORPUSCULAR HEMOGLOBIN CONC 33.2 GM/DL 32.3-36.5 (BEAKER) (test code = 752) RED CELL DISTRIBUTION WIDTH 13.6 % 11.6-14.4 (BEAKER) (test code = 412) PLATELET COUNT (BEAKER) (test 143 K/CU MM 150-450 L code = 756) MEAN PLATELET VOLUME (BEAKER) 11.0 fL 9.4-12.4 (test code = 754) NUCLEATED RED BLOOD CELLS 0 /100 WBC 0-0 (BEAKER) (test code = 413) RAD, CHEST, 1 VIEW, NON [id number] 09:55:00Reason for exam:->ETT, CHEST TUBES, PA CATHETERShould this be performed at the bedside?->YesFINAL REPORT Two frontal chest images compared to August 19, 2017 Discussion: Support tubes and right IJ pulmonary catheter in place. Chest tubes are noted. Trace left apical pneumothorax. Minimal left base atelectasis. Signed: Vandana Todd Verified Date/Time: 08/19/201709:55:44 Reading Location: [facility] Radiology Reading Room LACTIC ACID, ARTERIAL, WHOLE BLOOD 2017-08-19 07:50:00 Test Item Value Reference Range Interpretation Comments LACTATE BLOOD ARTERIAL (2) 3.2 mmol/L 0.5-2.2 H (BEAKER) (test code = 2874) Effective 06/11/2015: Units/Reference Range ChangeNew: 0.5-2.2 mmol/L Previous: 5-20 mg/dLBLOOD GAS, [id number] 07:31:00 Test Item Value Reference Range Interpretation Comments PH ARTERIAL (BEAKER) (test code = 7.39 7.35-7.45 383) PCO2 ARTERIAL (BEAKER) (test code 43 mmHg 35-45 = 384) PO2 ARTERIAL (BEAKER) (test code = 120 mmHg 80-90 H 385) O2 SATURATION ARTERIAL (BEAKER) 98.1 % 96.0-97.0 H (test code = 386) HCO3 ARTERIAL (BEAKER) (test code 25 mmol/L 21-29 = 388) BASE EXCESS ARTERIAL (BEAKER) 0.1 mmol/L -2.0-3.0 (test code = 387) PATIENT TEMPERATURE (BEAKER) (test 38.0 C code = 1818) FIO2 (BEAKER) (test code = 1819) 50.0 % CREATINE KINASE (CK), TOTAL AND [id number] 07:08:00 Test Item Value Reference Range Interpretation Comments CREATINE KINASE TOTAL (BEAKER) 282 U/L 29-200 H (test code = 380) CREATINE KINASE-MB (BEAKER) (test 11.5 ng/mL 0.0-6.6 H code = 750) CREATINE KINASE-MB INDEX (BEAKER) 4.1 % (test code = 395) CK-MB Reference Range:<6.7 Normal6.7-10.0 Borderline>10.0 AbnormalTROPONIN [id number] 07:04:00 Test Item Value Reference Range Interpretation Comments TROPONIN I (BEAKER) (test code = 1.89 ng/mL 0.00-0.03 HH 397) Troponin I (TnI) levels must be interpreted in the context of the presenting symptoms and the clinical findings. Elevated TnI levels indicate myocardial damage, but are not specific for ischemic heart disease. Elevated TnI levels are seen in patients with other cardiac conditions (including myocarditis and congestive heart failure), and slight TnI elevations occur in patients with other conditions, including sepsis, renal failure, acidosis, acute neurological disease, and persistent tachyarrhythmia.POCT-GLUCOSE [id number] 06:14:00 Test Item Value Reference Range Interpretation Comments POC-GLUCOSE METER 166 mg/dL 70-110 H TESTED AT [place] [address] ([facility]) (test code = [place] 1538) [id number] POCT-GLUCOSE [id number] 06:14:00 Test Item Value Reference Range Interpretation Comments POC-GLUCOSE METER 196 mg/dL 70-110 H TESTED AT [place] [address] ([facility]) (test code = [place] 1538) [address] POCT-GLUCOSE [id number] 06:14:00 Test Item Value Reference Range Interpretation Comments POC-GLUCOSE METER 209 mg/dL 70-110 H TESTED AT [place] [address] ([facility]) (test code = [place] [facility] 1538) [address] POCT-GLUCOSE [id number] 06:14:00 Test Item Value Reference Range Interpretation Comments POC-GLUCOSE METER 259 mg/dL 70-110 H TESTED AT [place] [address] ([facility]) (test code = [place] [facility] 1538) [address] POCT-GLUCOSE [id number] 06:14:00 Test Item Value Reference Range Interpretation Comments POC-GLUCOSE METER 304 mg/dL 70-110 H TESTED AT [place] [address] ([facility]) (test code = [place] [facility] 1538) [address] POCT-GLUCOSE [id number] 06:14:00 Test Item Value Reference Range Interpretation Comments POC-GLUCOSE METER 343 mg/dL 70-110 H TESTED AT [place] [address] ([facility]) (test code = [place] [facility] 1538) [address] OXYGEN SATURATION, [id number] 05:39:00 Test Item Value Reference Range Interpretation Comments O2 SATURATION (MEASURED) ([facility]) 73.8 % (test code = 1455) BLOOD GAS, [id number] 05:03:00 Test Item Value Reference Range Interpretation Comments PH ARTERIAL ([facility]) (test code = 7.31 7.35-7.45 L 383) PCO2 ARTERIAL ([facility]) (test code 46 mmHg 35-45 H = 384) PO2 ARTERIAL ([facility]) (test code 108 mmHg 80-90 H = 385) O2 SATURATION ARTERIAL ([facility]) 97.5 % 96.0-97.0 H (test code = 386) HCO3 ARTERIAL (BEAKER) (test code 23 mmol/L 21-29 = 388) BASE EXCESS ARTERIAL (BEAKER) -3.7 mmol/L -2.0-3.0 L (test code = 387) PATIENT TEMPERATURE (BEAKER) 37.0 C (test code = 1818) FIO2 (BEAKER) (test code = 1819) 50.0 % GLUCOSE-STAT [id number] 05:03:00 Test Item Value Reference Range Interpretation Comments GLUCOSE RANDOM (BEAKER) (test code 175 mg/dL 70-110 H = 652) HGB/HCT (H&H) - STAT [id number] 05:03:00 Test Item Value Reference Range Interpretation Comments HEMOGLOBIN (BEAKER) (test code = 11.9 g/dL 13.0-16.8 L 410) HEMATOCRIT (BEAKER) (test code = 35.0 % 40.0-50.0 L 411) CALCIUM, [id number] 05:02:00 Test Item Value Reference Range Interpretation Comments CALCIUM IONIZED (BEAKER) (test 1.21 mmol/L 1.12-1.27 code = 698) PH, BLOOD (BEAKER) (test code = 7.31 1810) Check serum Ionized Calcium level after 4 hours after IV Calcium replacement. SODIUM NA-STAT [id number] 05:01:00 Test Item Value Reference Range Interpretation Comments SODIUM (BEAKER) (test code = 381) 142 meq/L 135-148 POTASSIUM-STAT [id number] 05:01:00 Test Item Value Reference Range Interpretation Comments POTASSIUM (BEAKER) (test code = 3.6 meq/L 3.6-5.5 379) [id number] 04:59:00 Test Item Value Reference Range Interpretation Comments PHOSPHORUS (BEAKER) (test code = 2.2 mg/dL 2.3-4.7 L 604) [id number] 04:59:00 Test Item Value Reference Range Interpretation Comments MAGNESIUM (BEAKER) (test code = 2.0 mg/dL 1.6-2.6 627) BASIC METABOLIC [id number] 04:59:00 Test Item Value Reference Range Interpretation Comments SODIUM (BEAKER) 144 meq/L 136-145 (test code = 381) POTASSIUM (BEAKER) 3.8 meq/L 3.5-5.1 (test code = 379) CHLORIDE (BEAKER) 111 meq/L 98-107 H (test code = 382) CO2 (BEAKER) (test 20 meq/L 22-29 L code = 355) BLOOD UREA NITROGEN 10 mg/dL 7-21 (BEAKER) (test code = 354) CREATININE (BEAKER) 0.99 mg/dL 0.57-1.25 (test code = 358) GLUCOSE RANDOM 185 mg/dL 70-105 H (BEAKER) (test code = 652) CALCIUM (BEAKER) 9.3 mg/dL 8.4-10.2 (test code = 697) EGFR (BEAKER) (test 77 mL/min/1.73 ESTIMA DAVID GFR IS code = 1092) sq m NOT ACCURATE CREATININE CLEARANCE IN PREDICTING GLOMERULAR FILTRATION RATE . ESTIMATED GFR I S NOT APPLICABLE FOR DIALYSIS PATIEN TS. LACTIC ACID, ARTERIAL, WHOLE [id number] 04:53:00 Test Item Value Reference Range Interpretation Comments LACTATE BLOOD ARTERIAL (2) 7.3 mmol/L 0.5-2.2 H (BEAKER) (test code = 2874) Effective 06/11/2015: Units/Reference Range ChangeNew: 0.5-2.2 mmol/L Previous: 5-20 mg/dLCBC W/PLT COUNT & AUTO [id number] 04:52:00 Test Item Value Reference Range Interpretation Comments WHITE BLOOD CELL COUNT (BEAKER) 12.5 K/ L 3.5-10.5 H (test code = 775) RED BLOOD CELL COUNT (BEAKER) 3.22 M/ L 4.63-6.08 L (test code = 761) HEMOGLOBIN (BEAKER) (test code = 10.2 GM/DL 13.7-17.5 L 410) HEMATOCRIT (BEAKER) (test code = 31.2 % 40.1-51.0 L 411) MEAN CORPUSCULAR VOLUME (BEAKER) 96.9 fL 79.0-92.2 H (test code = 753) MEAN CORPUSCULAR HEMOGLOBIN 31.7 pg 25.7-32.2 (BEAKER) (test code = 751) MEAN CORPUSCULAR HEMOGLOBIN CONC 32.7 GM/DL 32.3-36.5 (BEAKER) (test code = 752) RED CELL DISTRIBUTION WIDTH 13.6 % 11.6-14.4 (BEAKER) (test code = 412) PLATELET COUNT (BEAKER) (test 143 K/CU MM 150-450 L code = 756) MEAN PLATELET VOLUME (BEAKER) 11.4 fL 9.4-12.4 (test code = 754) NUCLEATED RED BLOOD CELLS 0 /100 WBC 0-0 (BEAKER) (test code = 413) NEUTROPHILS RELATIVE PERCENT 83 % (BEAKER) (test code = 429) LYMPHOCYTES RELATIVE PERCENT 9 % (BEAKER) (test code = 430) MONOCYTES RELATIVE PERCENT 7 % (BEAKER) (test code = 431) EOSINOPHILS RELATIVE PERCENT 0 % (BEAKER) (test code = 432) BASOPHILS RELATIVE PERCENT 0 % (BEAKER) (test code = 437) NEUTROPHILS ABSOLUTE COUNT 10.46 K/ L 1.78-5.38 H (BEAKER) (test code = 670) LYMPHOCYTES ABSOLUTE COUNT 1.06 K/ L 1.32-3.57 L (BEAKER) (test code = 414) MONOCYTES ABSOLUTE COUNT (BEAKER) 0.90 K/ L 0.30-0.82 H (test code = 415) EOSINOPHILS ABSOLUTE COUNT 0.00 K/ L 0.04-0.54 L (BEAKER) (test code = 416) BASOPHILS ABSOLUTE COUNT (BEAKER) 0.04 K/ L 0.01-0.08 (test code = 417) IMMATURE GRANULOCYTES-RELATIVE 1 % 0-1 PERCENT (BEAKER) (test code = 2801) [id number] 04:50:00 Test Item Value Reference Range Interpretation Comments PARTIAL THROMBOPLASTIN TIME 35.7 seconds 22.5-36.0 (BEAKER) (test code = 760) PROTHROMBIN [id number] 04:49:00 Test Item Value Reference Range Interpretation Comments PROTIME (BEAKER) (test code = 15.0 seconds 11.7-14.7 H 759) INR (BEAKER) (test code = 370) 1.2 <=5.9 RECOMMENDED COUMADIN/WARFARIN INR THERAPY RANGESSTANDARD DOSE: 2.0 - 3.0 Includes: PROPHYLAXIS forvenous thrombosis, systemic embolization; TREATMENT for venous thrombosis and/or pulmonary embolus.HIGH RISK: Target INR is 2.5-3.5 for patients with mechanical heart valves.LACTIC ACID, ARTERIAL, WHOLE BLOOD 2017-08-19 03:39:00 Test Item Value Reference Range Interpretation Comments LACTATE BLOOD ARTERIAL (2) 5.8 mmol/L 0.5-2.2 H (BEAKER) (test code = 2874) Effective 06/11/2015: Units/Reference Range ChangeNew: 0.5-2.2 mmol/L Previous: 5-20 mg/dLBLOOD GAS, [id number] 03:33:00 Test Item Value Reference Range Interpretation Comments PH ARTERIAL (BEAKER) (test code = 7.37 7.35-7.45 383) PCO2 ARTERIAL (BEAKER) (test code 45 mmHg 35-45 = 384) PO2 ARTERIAL (BEAKER) (test code 144 mmHg 80-90 H = 385) O2 SATURATION ARTERIAL (BEAKER) 98.8 % 96.0-97.0 H (test code = 386) HCO3 ARTERIAL (BEAKER) (test code 25 mmol/L 21-29 = 388) BASE EXCESS ARTERIAL (BEAKER) -0.3 mmol/L -2.0-3.0 (test code = 387) PATIENT TEMPERATURE (BEAKER) 37.0 C (test code = 1818) FIO2 (BEAKER) (test code = 1819) 50.0 % CALCIUM, [id number] 03:32:00 Test Item Value Reference Range Interpretation Comments CALCIUM IONIZED (BEAKER) (test 1.17 mmol/L 1.12-1.27 code = 698) PH, BLOOD (BEAKER) (test code = 7.37 1810) LACTIC ACID, ARTERIAL, WHOLE [id number] 01:43:00 Test Item Value Reference Range Interpretation Comments LACTATE BLOOD ARTERIAL (2) 9.2 mmol/L 0.5-2.2 H (BEAKER) (test code = 2874) Effective 06/11/2015: Units/Reference Range ChangeNew: 0.5-2.2 mmol/L Previous: 5-20 mg/[id number] 01:41:00 Test Item Value Reference Range Interpretation Comments MAGNESIUM (BEAKER) (test code = 2.3 mg/dL 1.6-2.6 627) BLOOD GAS, [id number] 01:31:00 Test Item Value Reference Range Interpretation Comments PH ARTERIAL (BEAKER) (test code = 7.34 7.35-7.45 L 383) PCO2 ARTERIAL (BEAKER) (test code 45 mmHg 35-45 = 384) PO2 ARTERIAL (BEAKER) (test code 129 mmHg 80-90 H = 385) O2 SATURATION ARTERIAL (BEAKER) 98.4 % 96.0-97.0 H (test code = 386) HCO3 ARTERIAL (BEAKER) (test code 24 mmol/L 21-29 = 388) BASE EXCESS ARTERIAL (BEAKER) -2.1 mmol/L -2.0-3.0 L (test code = 387) PATIENT TEMPERATURE (BEAKER) 36.9 C (test code = 1818) FIO2 (BEAKER) (test code = 1819) 50.0 % POTASSIUM-STAT [id number] 01:31:00 Test Item Value Reference Range Interpretation Comments POTASSIUM (BEAKER) (test code = 3.3 meq/L 3.6-5.5 L 379) GLUCOSE-STAT [id number] 01:31:00 Test Item Value Reference Range Interpretation Comments GLUCOSE RANDOM (BEAKER) (test code 236 mg/dL 70-110 H = 652) HGB/HCT (H&H) - STAT [id number] 01:31:00 Test Item Value Reference Range Interpretation Comments HEMOGLOBIN (BEAKER) (test code = 11.1 g/dL 13.0-16.8 L 410) HEMATOCRIT (BEAKER) (test code = 33.0 % 40.0-50.0 L 411) OXYGEN SATURATION, [id number] 01:28:00 Test Item Value Reference Range Interpretation Comments O2 SATURATION (MEASURED) (BEAKER) 76.9 % (test code = 1455) SODIUM NA-STAT [id number] 01:28:00 Test Item Value Reference Range Interpretation Comments SODIUM (BEAKER) (test code = 381) 144 meq/L 135-148 RAD, CHEST, 1 VIEW, NON [id number] 00:23:00Reason for exam:->s/p PA catheter placementFINAL REPORT RAD, CHEST, 1 VIEW, NON DEPT INDICATION: s/p PA catheter placement COMPARISON: Prior day's exam FINDINGS: Portable frontal view of the chest. IMPRESSION: Support Lines: Interval placement of a right IJ Mabie-Marya catheter with tip overlying the main pulmonary artery. Enteric tube terminates 6.4 cm above the waqas, otherwise support lines and tubes are unchanged.Lungs and pleura: Increased left retrocardiac opacity likely represents partial left lower lobe collapse. Tiny focus of gas along the diaphragm at the left cardiophrenic angle may represent a tiny anterior pneumothorax versus pneumomediastinum. Heart and mediastinum: Stable contours. Stable surgical changes.Additional findings: None. Signed: Audrey Vasquezeport Verified Date/Time: 08/19/2017 00:23:43 Reading Location: [address] Reading Room LACTIC ACID, ARTERIAL, WHOLE [id number] 23:40:00 Test Item Value Reference Range Interpretation Comments LACTATE BLOOD ARTERIAL (2) 8.7 mmol/L 0.5-2.2 H (BEAKER) (test code = 2874) Effective 06/11/2015: Units/Reference Range ChangeNew: 0.5-2.2 mmol/L Previous: 5-20 mg/dLBLOOD GAS, [id number] 23:20:00 Test Item Value Reference Range Interpretation Comments PH ARTERIAL (BEAKER) (test code = 7.36 7.35-7.45 383) PCO2 ARTERIAL (BEAKER) (test code 48 mmHg 35-45 H = 384) PO2 ARTERIAL (BEAKER) (test code = 93 mmHg 80-90 H 385) O2 SATURATION ARTERIAL (BEAKER) 96.8 % 96.0-97.0 (test code = 386) HCO3 ARTERIAL (BEAKER) (test code 27 mmol/L 21-29 = 388) BASE EXCESS ARTERIAL (BEAKER) 0.6 mmol/L -2.0-3.0 (test code = 387) PATIENT TEMPERATURE (BEAKER) (test 36.8 C code = 1818) FIO2 (BEAKER) (test code = 1819) 60.0 % POTASSIUM-STAT [id number] 23:20:00 Test Item Value Reference Range Interpretation Comments POTASSIUM (BEAKER) (test code = 3.2 meq/L 3.6-5.5 L 379) GLUCOSE-STAT [id number] 23:20:00 Test Item Value Reference Range Interpretation Comments GLUCOSE RANDOM (BEAKER) (test code 282 mg/dL 70-110 H = 652) HGB/HCT (H&H) - STAT [id number] 23:20:00 Test Item Value Reference Range Interpretation Comments HEMOGLOBIN (BEAKER) (test code = 10.7 g/dL 13.0-16.8 L 410) HEMATOCRIT (BEAKER) (test code = 31.0 % 40.0-50.0 L 411) CALCIUM, [id number] 23:20:00 Test Item Value Reference Range Interpretation Comments CALCIUM IONIZED (BEAKER) (test 1.10 mmol/L 1.12-1.27 L code = 698) PH, BLOOD (BEAKER) (test code = 7.36 1810) Check serum Ionized Calcium level after 4 hours after IV Calcium replacement. SODIUM NA-STAT [id number] 23:19:00 Test Item Value Reference Range Interpretation Comments SODIUM (BEAKER) (test code = 381) 144 meq/L 135-148 OXYGEN SATURATION, [id number] 23:19:00 Test Item Value Reference Range Interpretation Comments O2 SATURATION (MEASURED) (BEAKER) 79.6 % (test code = 1455) BLOOD GAS, [id number] 22:12:00 Test Item Value Reference Range Interpretation Comments PH ARTERIAL (BEAKER) (test code = 7.25 7.35-7.45 L 383) PCO2 ARTERIAL (BEAKER) (test code 51 mmHg 35-45 H = 384) PO2 ARTERIAL (BEAKER) (test code 111 mmHg 80-90 H = 385) O2 SATURATION ARTERIAL (BEAKER) 97.4 % 96.0-97.0 H (test code = 386) HCO3 ARTERIAL (BEAKER) (test code 22 mmol/L 21-29 = 388) BASE EXCESS ARTERIAL (BEAKER) -5.5 mmol/L -2.0-3.0 L (test code = 387) PATIENT TEMPERATURE (BEAKER) 36.7 C (test code = 1818) FIO2 (BEAKER) (test code = 1819) 60.0 % RAD, CHEST, 1 VIEW, NON [id number] 20:42:00Reason for exam:->s/p ACBFINAL REPORT Chest, 1 view. History: Status post CABG Comparison: Plain radiograph the chest dated 08/18/2017.. IMPRESSION: Interval placement of a right IJ central venous catheter with tip overlying the SVC. Endotracheal tube terminates approximately 8.8 mm above the waqas just below the thoracic inlet. Interval placement of a left-sided chest tube and drain overlying the medial mediastinum. Enteric tube is seen coursing below the diaphragm, proximal sidehole not well seen but likely above the GE junction, recommend advancing. Post surgical changes of median sternotomy withintact sternotomy wires. Minimal bibasilar atelectasis. Left retrocardiac opacity likely represents partial left lower lobe collapse. Mild residual interstitial lung markings may relate to technique (low lung volumes) versus mild interstitial pulmonary edema. Small left pleural effusion. No pneumothorax. Signed: Audrey Vasquez Verified Date/Time: 08/18/2017 20:42:09 Reading Location: [address] Reading Room BLOOD GAS, ARTERIAL 2017-08-18 20:27:00 Test Item Value Reference Range Interpretation Comments PH ARTERIAL (BEAKER) (test code = 7.24 7.35-7.45 L 383) PCO2 ARTERIAL (BEAKER) (test code 57 mmHg 35-45 H = 384) PO2 ARTERIAL (BEAKER) (test code 101 mmHg 80-90 H = 385) O2 SATURATION ARTERIAL (BEAKER) 96.5 % 96.0-97.0 (test code = 386) HCO3 ARTERIAL (BEAKER) (test code 23 mmol/L 21-29 = 388) BASE EXCESS ARTERIAL (BEAKER) -4.6 mmol/L -2.0-3.0 L (test code = 387) PATIENT TEMPERATURE (BEAKER) 37.0 C (test code = 1818) GLUCOSE-STAT [id number] 20:27:00 Test Item Value Reference Range Interpretation Comments GLUCOSE RANDOM (BEAKER) (test code 319 mg/dL 70-110 H = 652) HGB/HCT (H&H) - STAT [id number] 20:27:00 Test Item Value Reference Range Interpretation Comments HEMOGLOBIN (BEAKER) (test code = 12.2 g/dL 13.0-16.8 L 410) HEMATOCRIT (BEAKER) (test code = 36.0 % 40.0-50.0 L 411) CALCIUM, [id number] 20:26:00 Test Item Value Reference Range Interpretation Comments CALCIUM IONIZED (BEAKER) (test 1.23 mmol/L 1.12-1.27 code = 698) PH, BLOOD (BEAKER) (test code = 7.24 1810) SODIUM NA-STAT [id number] 20:26:00 Test Item Value Reference Range Interpretation Comments SODIUM (BEAKER) (test code = 381) 142 meq/L 135-148 POTASSIUM-STAT [id number] 20:26:00 Test Item Value Reference Range Interpretation Comments POTASSIUM (BEAKER) (test code = 3.6 meq/L 3.6-5.5 379) CBC W/PLT COUNT & AUTO [id number] 20:13:00 Test Item Value Reference Range Interpretation Comments WHITE BLOOD CELL COUNT (BEAKER) 16.7 K/ L 3.5-10.5 H (test code = 775) RED BLOOD CELL COUNT (BEAKER) 3.41 M/ L 4.63-6.08 L (test code = 761) HEMOGLOBIN (BEAKER) (test code = 11.2 GM/DL 13.7-17.5 L 410) HEMATOCRIT (BEAKER) (test code = 33.9 % 40.1-51.0 L 411) MEAN CORPUSCULAR VOLUME (BEAKER) 99.4 fL 79.0-92.2 H (test code = 753) MEAN CORPUSCULAR HEMOGLOBIN 32.8 pg 25.7-32.2 H (BEAKER) (test code = 751) MEAN CORPUSCULAR HEMOGLOBIN CONC 33.0 GM/DL 32.3-36.5 (BEAKER) (test code = 752) RED CELL DISTRIBUTION WIDTH 13.6 % 11.6-14.4 (BEAKER) (test code = 412) PLATELET COUNT (BEAKER) (test 148 K/CU MM 150-450 L code = 756) MEAN PLATELET VOLUME (BEAKER) 10.3 fL 9.4-12.4 (test code = 754) NUCLEATED RED BLOOD CELLS 0 /100 WBC 0-0 (BEAKER) (test code = 413) (CELLAVISION MANUAL DIFF)[id number] 20:13:00 Test Item Value Reference Range Interpretation Comments NEUTROPHILS - REL 92 % (CELLAVISION)(BEAKER) (test code = 2816) LYMPHOCYTES - REL 5 % (CELLAVISION)(BEAKER) (test code = 2817) BANDS - REL (CELLAVISION)(BEAKER) 3 % 0-10 (test code = 2826) NEUTROPHILS - ABS 15.36 K/ul 1.78-5.38 H (CELLAVISION)(BEAKER) (test code = 2830) LYMPHOCYTES - ABS 0.84 K/ul 1.32-3.57 L (CELLAVISION)(BEAKER) (test code = 2831) BANDS - ABS (CELLAVISION)(BEAKER) 0.50 K/uL 0.00-0.80 (test code = 2840) TOTAL COUNTED (BEAKER) (test code 100 = 1351) WBC MORPHOLOGY (BEAKER) (test code Normal = 487) PLT MORPHOLOGY (BEAKER) (test code Normal = 486) ANISOCYTOSIS (BEAKER) (test code = 1+ few 961) POIKILOCYTES (BEAKER) (test code = 1+ few 966) SPHEROCYTES (BEAKER) (test code = 1+ few 768) ELLIPTOCYTES (BEAKER) (test code = 1+ few 962) ARTIFACT (CELLAVISION)(BEAKER) Present (test code = 3432) PLATELET CONCENTRATION Adequate (CELLAVISION)(BEAKER) (test code = 3438) Received comment: User comments: Slide comments:[id number] 20:06:00 Test Item Value Reference Range Interpretation Comments MAGNESIUM (BEAKER) (test code = 2.4 mg/dL 1.6-2.6 627) BASIC METABOLIC [id number] 20:06:00 Test Item Value Reference Range Interpretation Comments SODIUM (BEAKER) 143 meq/L 136-145 (test code = 381) POTASSIUM (BEAKER) 3.6 meq/L 3.5-5.1 (test code = 379) CHLORIDE (BEAKER) 108 meq/L 98-107 H (test code = 382) CO2 (BEAKER) (test 23 meq/L 22-29 code = 355) BLOOD UREA NITROGEN 12 mg/dL 7-21 (BEAKER) (test code = 354) CREATININE (BEAKER) 1.04 mg/dL 0.57-1.25 (test code = 358) GLUCOSE RANDOM 337 mg/dL 70-105 H (BEAKER) (test code = 652) CALCIUM (BEAKER) 9.7 mg/dL 8.4-10.2 (test code = 697) EGFR (BEAKER) (test 72 mL/min/1.73 ESTIMA DAVID GFR IS code = 1092) sq m NOT ACCURATE CREATININE CLEARANCE IN PREDICTING GLOMERULAR FILTRATION RATE . ESTIMATED GFR I S NOT APPLICABLE FOR DIALYSIS PATIEN TS. LACTIC ACID, ARTERIAL, WHOLE [id number] 20:02:00 Test Item Value Reference Range Interpretation Comments LACTATE BLOOD ARTERIAL (2) 4.9 mmol/L 0.5-2.2 H (BEAKER) (test code = 2874) Effective 06/11/2015: Units/Reference Range ChangeNew: 0.5-2.2 mmol/L Previous: 5-20 mg/dLPROTHROMBIN [id number] 19:51:00 Test Item Value Reference Range Interpretation Comments PROTIME (BEAKER) (test code = 16.4 seconds 11.7-14.7 H 759) INR (BEAKER) (test code = 370) 1.3 <=5.9 RECOMMENDED COUMADIN/WARFARIN INR THERAPY RANGESSTANDARD DOSE: 2.0 - 3.0 Includes: PROPHYLAXIS forvenous thrombosis, systemic embolization; TREATMENT for venous thrombosis and/or pulmonary embolus.HIGH RISK: Target INR is 2.5-3.5 for patients with mechanical heart valves.[id number] 19:51:00 Test Item Value Reference Range Interpretation Comments FIBRINOGEN LEVEL (BEAKER) (test 331 mg/dl 225-434 code = 658) [id number] 19:51:00 Test Item Value Reference Range Interpretation Comments PARTIAL THROMBOPLASTIN TIME 31.1 seconds 22.5-36.0 (BEAKER) (test code = 760) OXYGEN SATURATION, [id number] 19:44:00 Test Item Value Reference Range Interpretation Comments O2 SATURATION (MEASURED) (BEAKER) 76.2 % (test code = 1455) BLOOD GAS, [id number] 19:43:00 Test Item Value Reference Range Interpretation Comments PH ARTERIAL (BEAKER) (test code = 7.25 7.35-7.45 L 383) PCO2 ARTERIAL (BEAKER) (test code 57 mmHg 35-45 H = 384) PO2 ARTERIAL (BEAKER) (test code 74 mmHg 80-90 L = 385) O2 SATURATION ARTERIAL (BEAKER) 92.9 % 96.0-97.0 L (test code = 386) HCO3 ARTERIAL (BEAKER) (test code 24 mmol/L 21-29 = 388) BASE EXCESS ARTERIAL (BEAKER) -3.7 mmol/L -2.0-3.0 L (test code = 387) PATIENT TEMPERATURE (BEAKER) 36.4 C (test code = 1818) FIO2 (BEAKER) (test code = 1819) 60.0 % [id number] 19:07:00 Test Item Value Reference Range Interpretation Comments ACTIVATED CLOTTING TIME 120 sec TEST ED AT [place] [address] ([facility]) (test code = TWYL[place]ELISSA [place] [address]) [id number] 19:07:00 Test Item Value Reference Range Interpretation Comments ACTIVATED CLOTTING TIME 439 sec TEST ED AT [place] [address] ([facility]) (test code = [place] [address]) [id number] 19:07:00 Test Item Value Reference Range Interpretation Comments ACTIVATED CLOTTING TIME 433 sec TEST ED AT [place] [address] ([facility]) (test code = [place] [address]) [id number] 19:07:00 Test Item Value Reference Range Interpretation Comments ACTIVATED CLOTTING TIME 378 sec TEST ED AT [place] [address] ([facility]) (test code = [place] [address]) [id number] 19:07:00 Test Item Value Reference Range Interpretation Comments ACTIVATED CLOTTING TIME 422 sec TEST ED AT [place] [address] ([facility]) (test code = [place] [address]) [id number] THROMBOELASTOGRAPH (TEG)2017-08-18 18:59:00 Test Item Value Reference Range Interpretation Comments TEG ACTIVATED CLOTTING TIME 4.3 minutes 4.0-7.0 ([facility]) (test code = 1407) TEG FIBRINOGEN ACTIVITY (BEAKER) 72.3 degrees 61.0-73.0 (test code = 1408) TEG PLT. AGGREGATION (BEAKER) 61.4 MM 55.0-65.0 (test code = 1409) TGH ACTIVATED CLOTTING TIME 4.6 minutes 4.0-7.0 (BEAKER) (test code = 1411) TGH FIBRINOGEN ACTIVITY (BEAKER) 74.0 degrees 61.0-73.0 H (test code = 1412) TGH PLT. AGGREGATION (BEAKER) 68.0 MM 55.0-65.0 H (test code = 1413) PROTHROMBIN [id number] 18:36:00 Test Item Value Reference Range Interpretation Comments PROTIME (BEAKER) (test code = 18.2 seconds 11.7-14.7 H 759) INR (BEAKER) (test code = 370) 1.5 <=5.9 RECOMMENDED COUMADIN/WARFARIN INR THERAPY RANGESSTANDARD DOSE: 2.0 - 3.0 Includes: PROPHYLAXIS forvenous thrombosis, systemic embolization; TREATMENT for venous thrombosis and/or pulmonary embolus.HIGH RISK: Target INR is 2.5-3.5 for patients with mechanical heart valves.[id number] 18:36:00 Test Item Value Reference Range Interpretation Comments FIBRINOGEN LEVEL (BEAKER) (test 276 mg/dl 225-434 code = 658) [id number] 18:36:00 Test Item Value Reference Range Interpretation Comments PARTIAL THROMBOPLASTIN TIME 32.8 seconds 22.5-36.0 (BEAKER) (test code = 760) PLATELET [id number] 18:29:00 Test Item Value Reference Range Interpretation Comments PLATELET COUNT (BEAKER) (test 178 K/CU MM 150-450 code = 756) BLOOD GAS, [id number] 18:14:00 Test Item Value Reference Range Interpretation Comments PH ARTERIAL (BEAKER) (test code = 7.26 7.35-7.45 L 383) PCO2 ARTERIAL (BEAKER) (test code 57 mmHg 35-45 H = 384) PO2 ARTERIAL (BEAKER) (test code 185 mmHg 80-90 H = 385) O2 SATURATION ARTERIAL (BEAKER) 99.1 % 96.0-97.0 H (test code = 386) HCO3 ARTERIAL (BEAKER) (test code 25 mmol/L 21-29 = 388) BASE EXCESS ARTERIAL (BEAKER) -3.0 mmol/L -2.0-3.0 L (test code = 387) PATIENT TEMPERATURE (BEAKER) 35.9 C (test code = 1818) FIO2 (BEAKER) (test code = 1819) 100.0 % GLUCOSE-STAT [id number] 18:14:00 Test Item Value Reference Range Interpretation Comments GLUCOSE RANDOM (BEAKER) (test code 330 mg/dL 70-110 H = 652) HGB/HCT (H&H) - STAT [id number] 18:14:00 Test Item Value Reference Range Interpretation Comments HEMOGLOBIN (BEAKER) (test code = 11.1 g/dL 13.0-16.8 L 410) HEMATOCRIT (BEAKER) (test code = 33.0 % 40.0-50.0 L 411) SODIUM NA-STAT [id number] 18:12:00 Test Item Value Reference Range Interpretation Comments SODIUM (BEAKER) (test code = 381) 138 meq/L 135-148 POTASSIUM-STAT [id number] 18:12:00 Test Item Value Reference Range Interpretation Comments POTASSIUM (BEAKER) (test code = 3.7 meq/L 3.6-5.5 379) CALCIUM, [id number] 18:12:00 Test Item Value Reference Range Interpretation Comments CALCIUM IONIZED (BEAKER) (test 1.18 mmol/L 1.12-1.27 code = 698) PH, BLOOD (BEAKER) (test code = 7.24 1810) BLOOD GAS, [id number] 17:05:00 Test Item Value Reference Range Interpretation Comments PH ARTERIAL (BEAKER) (test code = 7.38 7.35-7.45 383) PCO2 ARTERIAL (BEAKER) (test code 42 mmHg 35-45 = 384) PO2 ARTERIAL (BEAKER) (test code 352 mmHg 80-90 H = 385) O2 SATURATION ARTERIAL (BEAKER) 99.8 % 96.0-97.0 H (test code = 386) HCO3 ARTERIAL (BEAKER) (test code 26 mmol/L 21-29 = 388) BASE EXCESS ARTERIAL (BEAKER) -1.3 mmol/L -2.0-3.0 (test code = 387) PATIENT TEMPERATURE (BEAKER) 29.5 C (test code = 1818) FIO2 (BEAKER) (test code = 1819) 70.0 % GLUCOSE-STAT [id number] 17:05:00 Test Item Value Reference Range Interpretation Comments GLUCOSE RANDOM (BEAKER) (test code 320 mg/dL 70-110 H = 652) HGB/HCT (H&H) - STAT [id number] 17:05:00 Test Item Value Reference Range Interpretation Comments HEMOGLOBIN (BEAKER) (test code = 10.8 g/dL 13.0-16.8 L 410) HEMATOCRIT (BEAKER) (test code = 32.0 % 40.0-50.0 L 411) SODIUM NA-STAT [id number] 17:04:00 Test Item Value Reference Range Interpretation Comments SODIUM (BEAKER) (test code = 381) 135 meq/L 135-148 POTASSIUM-STAT [id number] 17:04:00 Test Item Value Reference Range Interpretation Comments POTASSIUM (BEAKER) (test code = 5.4 meq/L 3.6-5.5 379) BLOOD GAS, [id number] 16:34:00 Test Item Value Reference Range Interpretation Comments PH ARTERIAL (BEAKER) (test code = 7.49 7.35-7.45 H 383) PCO2 ARTERIAL (BEAKER) (test code 31 mmHg 35-45 L = 384) PO2 ARTERIAL (BEAKER) (test code 240 mmHg 80-90 H = 385) O2 SATURATION ARTERIAL (BEAKER) 99.6 % 96.0-97.0 H (test code = 386) HCO3 ARTERIAL (BEAKER) (test code 24 mmol/L 21-29 = 388) BASE EXCESS ARTERIAL (BEAKER) -0.1 mmol/L -2.0-3.0 (test code = 387) PATIENT TEMPERATURE (BEAKER) 33.1 C (test code = 1818) FIO2 (BEAKER) (test code = 1819) 60.0 % SODIUM NA-STAT [id number] 16:34:00 Test Item Value Reference Range Interpretation Comments SODIUM (BEAKER) (test code = 381) 134 meq/L 135-148 L POTASSIUM-STAT [id number] 16:34:00 Test Item Value Reference Range Interpretation Comments POTASSIUM (BEAKER) (test code = 5.7 meq/L 3.6-5.5 H 379) GLUCOSE-STAT [id number] 16:34:00 Test Item Value Reference Range Interpretation Comments GLUCOSE RANDOM (BEAKER) (test code 266 mg/dL 70-110 H = 652) HGB/HCT (H&H) - STAT [id number] 16:34:00 Test Item Value Reference Range Interpretation Comments HEMOGLOBIN (BEAKER) (test code = 11.5 g/dL 13.0-16.8 L 410) HEMATOCRIT (BEAKER) (test code = 34.0 % 40.0-50.0 L 411) POTASSIUM-STAT [id number] 16:04:00 Test Item Value Reference Range Interpretation Comments POTASSIUM (BEAKER) (test code = 4.4 meq/L 3.6-5.5 379) BLOOD GAS, [id number] 16:04:00 Test Item Value Reference Range Interpretation Comments PH ARTERIAL (BEAKER) (test code = 7.33 7.35-7.45 L 383) PCO2 ARTERIAL (BEAKER) (test code 41 mmHg 35-45 = 384) PO2 ARTERIAL (BEAKER) (test code 335 mmHg 80-90 H = 385) O2 SATURATION ARTERIAL (BEAKER) 99.7 % 96.0-97.0 H (test code = 386) HCO3 ARTERIAL (BEAKER) (test code 24 mmol/L 21-29 = 388) BASE EXCESS ARTERIAL (BEAKER) -5.1 mmol/L -2.0-3.0 L (test code = 387) PATIENT TEMPERATURE (BEAKER) 27.2 C (test code = 1818) FIO2 (BEAKER) (test code = 1819) 60.0 % SODIUM NA-STAT [id number] 16:04:00 Test Item Value Reference Range Interpretation Comments SODIUM (BEAKER) (test code = 381) 134 meq/L 135-148 L GLUCOSE-STAT [id number] 16:04:00 Test Item Value Reference Range Interpretation Comments GLUCOSE RANDOM (BEAKER) (test code 275 mg/dL 70-110 H = 652) HGB/HCT (H&H) - STAT [id number] 16:04:00 Test Item Value Reference Range Interpretation Comments HEMOGLOBIN (BEAKER) (test code = 11.5 g/dL 13.0-16.8 L 410) HEMATOCRIT (BEAKER) (test code = 34.0 % 40.0-50.0 L 411) BLOOD GAS, [id number] 15:18:00 Test Item Value Reference Range Interpretation Comments PH ARTERIAL (BEAKER) (test code = 7.29 7.35-7.45 L 383) PCO2 ARTERIAL (BEAKER) (test code 52 mmHg 35-45 H = 384) PO2 ARTERIAL (BEAKER) (test code 133 mmHg 80-90 H = 385) O2 SATURATION ARTERIAL (BEAKER) 98.4 % 96.0-97.0 H (test code = 386) HCO3 ARTERIAL (BEAKER) (test code 25 mmol/L 21-29 = 388) BASE EXCESS ARTERIAL (BEAKER) -3.2 mmol/L -2.0-3.0 L (test code = 387) PATIENT TEMPERATURE (BEAKER) 36.0 C (test code = 1818) FIO2 (BEAKER) (test code = 1819) 100.0 % GLUCOSE-STAT [id number] 15:18:00 Test Item Value Reference Range Interpretation Comments GLUCOSE RANDOM (BEAKER) (test code 200 mg/dL 70-110 H = 652) SODIUM NA-STAT [id number] 15:17:00 Test Item Value Reference Range Interpretation Comments SODIUM (BEAKER) (test code = 381) 141 meq/L 135-148 POTASSIUM-STAT [id number] 15:17:00 Test Item Value Reference Range Interpretation Comments POTASSIUM (BEAKER) (test code = 4.6 meq/L 3.6-5.5 379) HGB/HCT (H&H) - STAT [id number] 15:17:00 Test Item Value Reference Range Interpretation Comments HEMOGLOBIN (BEAKER) (test code = 16.6 g/dL 13.0-16.8 410) HEMATOCRIT (BEAKER) (test code = 49.0 % 40.0-50.0 411) POCT-GLUCOSE [id number] 12:49:00 Test Item Value Reference Range Interpretation Comments POC-GLUCOSE METER 208 mg/dL 70-[address] [facility] 6720 (BEAKER) (test code = NORA SERRANO 1538) [address] HEMOGLOBIN [id number] 11:52:00 Test Item Value Reference Range Interpretation Comments HEMOGLOBIN A1C (BEAKER) (test code = 10.8 % 4.3-6.1 H 368) RAD, CHEST, 2 [id number] 10:32:00Reason for exam:->Pre opFINAL REPORT Chest two views Discussion: Heart, lungs, bones, soft tissues unremarkable. No effusion or pneumothorax. Signed: Vandana Todd Verified Date/Time: 08/18/2017 10:32:09 Reading Location: [facility] Radiology Reading Room POCT-GLUCOSE [id number] 08:56:00 Test Item Value Reference Range Interpretation Comments POC-GLUCOSE METER 199 mg/dL 70-[address] [facility] 6720 (BEAKER) (test code = [place] ROTHMAN [place] 1538) [address] TSH/FREE T4 IF [id number] 05:00:00 Test Item Value Reference Range Interpretation Comments THYROID STIMULATING HORMONE 1.14 uIU/mL 0.35-4.94 (BEAKER) (test code = 772) LIPID [id number] 04:46:00 Test Item Value Reference Range Interpretation Comments TRIGLYCERIDES (BEAKER) (test code = 336 mg/dL 540) CHOLESTEROL (BEAKER) (test code = 215 mg/dL 631) HDL CHOLESTEROL (BEAKER) (test code 28 mg/dL = 976) LDL CHOLESTEROL CALCULATED (BEAKER) 120 mg/dL (test code = 633) Triglyceride Reference Range: Low Risk <150 Borderline 150-199 High Risk 200-499 Very High Risk >=500Cholesterol Reference Range: Low Risk <200 Borderline 200-239 High Risk >240HDL Cholesterol Reference Range: Low Risk >=60 High Risk <40LDL Cholesterol Reference Range: Optimal <100 Near Optimal 100-129 Borderline 130-159 High 160-189 Very High >=190BASIC METABOLIC [id number] 04:46:00 Test Item Value Reference Range Interpretation Comments SODIUM (BEAKER) 141 meq/L 136-145 (test code = 381) POTASSIUM (BEAKER) 4.1 meq/L 3.5-5.1 (test code = 379) CHLORIDE (BEAKER) 108 meq/L 98-107 H (test code = 382) CO2 (BEAKER) (test 24 meq/L 22-29 code = 355) BLOOD UREA NITROGEN 13 mg/dL 7-21 (BEAKER) (test code = 354) CREATININE (BEAKER) 1.00 mg/dL 0.57-1.25 (test code = 358) GLUCOSE RANDOM 226 mg/dL 70-105 H (BEAKER) (test code = 652) CALCIUM (BEAKER) 9.1 mg/dL 8.4-10.2 (test code = 697) EGFR (BEAKER) (test 76 mL/min/1.73 ESTIMA DAVID GFR IS code = 1092) sq m NOT ACCURATE CREATININE CLEARANCE IN PREDICTING GLOMERULAR FILTRATION RATE . ESTIMATED GFR I S NOT APPLICABLE FOR DIALYSIS PATIEN TS. CBC W/PLT COUNT & AUTO [id number] 04:16:00 Test Item Value Reference Range Interpretation Comments WHITE BLOOD CELL COUNT (BEAKER) 5.9 K/ L 3.5-10.5 (test code = 775) RED BLOOD CELL COUNT (BEAKER) 4.68 M/ L 4.63-6.08 (test code = 761) HEMOGLOBIN (BEAKER) (test code = 14.9 GM/DL 13.7-17.5 410) HEMATOCRIT (BEAKER) (test code = 45.3 % 40.1-51.0 411) MEAN CORPUSCULAR VOLUME (BEAKER) 96.8 fL 79.0-92.2 H (test code = 753) MEAN CORPUSCULAR HEMOGLOBIN 31.8 pg 25.7-32.2 (BEAKER) (test code = 751) MEAN CORPUSCULAR HEMOGLOBIN CONC 32.9 GM/DL 32.3-36.5 (BEAKER) (test code = 752) RED CELL DISTRIBUTION WIDTH 13.8 % 11.6-14.4 (BEAKER) (test code = 412) PLATELET COUNT (BEAKER) (test 114 K/CU MM 150-450 L code = 756) MEAN PLATELET VOLUME (BEAKER) 11.2 fL 9.4-12.4 (test code = 754) NUCLEATED RED BLOOD CELLS 0 /100 WBC 0-0 (BEAKER) (test code = 413) NEUTROPHILS RELATIVE PERCENT 58 % (BEAKER) (test code = 429) LYMPHOCYTES RELATIVE PERCENT 31 % (BEAKER) (test code = 430) MONOCYTES RELATIVE PERCENT 8 % (BEAKER) (test code = 431) EOSINOPHILS RELATIVE PERCENT 2 % (BEAKER) (test code = 432) BASOPHILS RELATIVE PERCENT 1 % (BEAKER) (test code = 437) NEUTROPHILS ABSOLUTE COUNT 3.41 K/ L 1.78-5.38 (BEAKER) (test code = 670) LYMPHOCYTES ABSOLUTE COUNT 1.83 K/ L 1.32-3.57 (BEAKER) (test code = 414) MONOCYTES ABSOLUTE COUNT (BEAKER) 0.44 K/ L 0.30-0.82 (test code = 415) EOSINOPHILS ABSOLUTE COUNT 0.13 K/ L 0.04-0.54 (BEAKER) (test code = 416) BASOPHILS ABSOLUTE COUNT (BEAKER) 0.04 K/ L 0.01-0.08 (test code = 417) IMMATURE GRANULOCYTES-RELATIVE 0 % 0-1 PERCENT (BEAKER) (test code = 2801) TROPONIN [id number] 22:40:00 Test Item Value Reference Range Interpretation Comments TROPONIN I (BEAKER) (test code = 0.02 ng/mL 0.00-0.03 397) Troponin I (TnI) levels must be interpreted in the context of the presenting symptoms and the clinical findings. Elevated TnI levels indicate myocardial damage, but are not specific for ischemic heart disease. Elevated TnI levels are seen in patients with other cardiac conditions (including myocarditis and congestive heart failure), and slight TnI elevations occur in patients with other conditions, including sepsis, renal failure, acidosis, acute neurological disease, and persistent tachyarrhythmia.[id number] 22:34:00 Test Item Value Reference Range Interpretation Comments MAGNESIUM (BEAKER) (test code = 2.2 mg/dL 1.6-2.6 627) BASIC METABOLIC [id number] 22:34:00 Test Item Value Reference Range Interpretation Comments SODIUM (BEAKER) 140 meq/L 136-145 (test code = 381) POTASSIUM (BEAKER) 3.9 meq/L 3.5-5.1 (test code = 379) CHLORIDE (BEAKER) 105 meq/L 98-107 (test code = 382) CO2 (BEAKER) (test 24 meq/L 22-29 code = 355) BLOOD UREA NITROGEN 15 mg/dL 7-21 (BEAKER) (test code = 354) CREATININE (BEAKER) 1.06 mg/dL 0.57-1.25 (test code = 358) GLUCOSE RANDOM 246 mg/dL 70-105 H (BEAKER) (test code = 652) CALCIUM (BEAKER) 9.0 mg/dL 8.4-10.2 (test code = 697) EGFR (BEAKER) (test 71 mL/min/1.73 ESTIMA DAVID GFR IS code = 1092) sq m NOT ACCURATE CREATININE CLEARANCE IN PREDICTING GLOMERULAR FILTRATION RATE . ESTIMATED GFR I S NOT APPLICABLE FOR DIALYSIS PATIEN TS. HEPATIC FUNCTION [id number] 22:34:00 Test Item Value Reference Range Interpretation Comments TOTAL PROTEIN (BEAKER) (test code = 7.1 gm/dL 6.0-8.3 770) ALBUMIN (BEAKER) (test code = 1145) 4.1 g/dL 3.5-5.0 BILIRUBIN TOTAL (BEAKER) (test code 0.6 mg/dL 0.2-1.2 = 377) BILIRUBIN DIRECT (BEAKER) (test 0.2 mg/dL 0.1-0.5 code = 706) ALKALINE PHOSPHATASE (BEAKER) (test 113 U/L 40-150 code = 346) AST (SGOT) (BEAKER) (test code = 25 U/L 5-34 353) ALT (SGPT) (BEAKER) (test code = 19 U/L 6-55 347) Specimen slightly lipemicPT/[id number] 22:08:00 Test Item Value Reference Range Interpretation Comments PROTIME (BEAKER) (test code = 13.2 seconds 11.7-14.7 759) INR (BEAKER) (test code = 370) 1.0 <=5.9 PARTIAL THROMBOPLASTIN TIME 27.9 seconds 22.5-36.0 (BEAKER) (test code = 760) RECOMMENDED COUMADIN/WARFARIN INR THERAPY RANGESSTANDARD DOSE: 2.0 - 3.0 Includes: PROPHYLAXIS forvenous thrombosis, systemic embolization; TREATMENT for venous thrombosis and/or pulmonary embolus.HIGH RISK: Target INR is 2.5-3.5 for patients with mechanical heart valves.CBC W/PLT COUNT & AUTO DIFFERENTIAL 2017-08-17 21:58:00 Test Item Value Reference Range Interpretation Comments WHITE BLOOD CELL COUNT (BEAKER) 7.8 K/ L 3.5-10.5 (test code = 775) RED BLOOD CELL COUNT (BEAKER) 4.57 M/ L 4.63-6.08 L (test code = 761) HEMOGLOBIN (BEAKER) (test code = 14.9 GM/DL 13.7-17.5 410) HEMATOCRIT (BEAKER) (test code = 44.6 % 40.1-51.0 411) MEAN CORPUSCULAR VOLUME (BEAKER) 97.6 fL 79.0-92.2 H (test code = 753) MEAN CORPUSCULAR HEMOGLOBIN 32.6 pg 25.7-32.2 H (BEAKER) (test code = 751) MEAN CORPUSCULAR HEMOGLOBIN CONC 33.4 GM/DL 32.3-36.5 (BEAKER) (test code = 752) RED CELL DISTRIBUTION WIDTH 13.7 % 11.6-14.4 (BEAKER) (test code = 412) PLATELET COUNT (BEAKER) (test 128 K/CU MM 150-450 L code = 756) MEAN PLATELET VOLUME (BEAKER) 11.9 fL 9.4-12.4 (test code = 754) NUCLEATED RED BLOOD CELLS 0 /100 WBC 0-0 (BEAKER) (test code = 413) NEUTROPHILS RELATIVE PERCENT 64 % (BEAKER) (test code = 429) LYMPHOCYTES RELATIVE PERCENT 27 % (BEAKER) (test code = 430) MONOCYTES RELATIVE PERCENT 7 % (BEAKER) (test code = 431) EOSINOPHILS RELATIVE PERCENT 1 % (BEAKER) (test code = 432) BASOPHILS RELATIVE PERCENT 1 % (BEAKER) (test code = 437) NEUTROPHILS ABSOLUTE COUNT 5.01 K/ L 1.78-5.38 (BEAKER) (test code = 670) LYMPHOCYTES ABSOLUTE COUNT 2.12 K/ L 1.32-3.57 (BEAKER) (test code = 414) MONOCYTES ABSOLUTE COUNT (BEAKER) 0.52 K/ L 0.30-0.82 (test code = 415) EOSINOPHILS ABSOLUTE COUNT 0.11 K/ L 0.04-0.54 (BEAKER) (test code = 416) BASOPHILS ABSOLUTE COUNT (BEAKER) 0.04 K/ L 0.01-0.08 (test code = 417) IMMATURE GRANULOCYTES-RELATIVE 0 % 0-1 PERCENT ([facility]) (test code = 2801) POCT-GLUCOSE [id number] 21:20:00 Test Item Value Reference Range Interpretation Comments POC-GLUCOSE METER 235 mg/dL 70-[address] [facility] 6720 ([facility]) (test code = [place] 1538) [id number]
[2020-09-09] MEDS ORDERED: ACETAMINOPHEN 500 MG TAB ONE (11:55)
[2020-09-09 12:10] LABS: Protime INR 1.16
[2020-09-09 12:21] LABS: Urine Blood Negative (Negative); Urine Glucose Trace (Negative); Urine Protein 3+ (Negative); Urine Specific Gravity >=1.030 (1.005-1.030); Urine pH 5.5 (5.0-7.0)
[2020-09-09 12:28] LABS: Albumin 3.2 g/dL (3.4-5.0); Bilirubin Direct 0.5 mg/dL (0-0.2); Ferritin 2849.9 ng/mL (26-388); Potassium 3.8 mmol/L (3.5-5.1); Protein, Total 7.9 g/dL (6.4-8.2); Troponin (Emerg Dept Use Only) 0.11 ng/mL (0.0-0.045)
--- NOTE | 2020-09-09 12:28 | RAD REPORT ---
EXAM DESCRIPTION: RAD - Chest Single View - 09/09/2020 12:14 pm CLINICAL HISTORY: DYSPNEA COMPARISON: No comparisonsChest Pa And Lat (2 Views) dated 05/15/2020; Chest Pa And Lat (2 Views) date d 12/14/2018; Chest Single View dated 08/16/2017; Chest Pa And Lat (2 Views) dated 08/09/2017 FINDINGS: No evidence of edema or pneumonia. Cardiomegaly.No acute osseous abnormality. No significa nt pleural effusions or pneumothorax. Left upper chest wall pacemaker/defibrillator. IMPRESSION: No acute cardiopulmonary disease.
[2020-09-09 12:49] LABS: Absolute Lymphocytes (CBC) 1.3 K/uL (0.7-4.9); Basophils % 0.3 % (0-1.3); Lymphocytes % 23.6 % (15.3-44.8); MPV 10.8 fL (7.6-11.3); RBC Red Blood Cell Count 5.46 M/uL (4.33-5.43)
--- NOTE | 2020-09-09 13:08 | RAD REPORT ---
EXAM DESCRIPTION: CT - Chest For Pe Angio - 09/09/2020 12:48 pm CLINICAL HISTORY: sob COMPARISON: None. TECHNIQUE: Dynamically enhanced axial 3 mm thick images of the chest were obtained during administra tion of <100> mL Isovue 370 IV contrast. Coronal and oblique reconstruction images were generated and reviewed. Exam utilizes a protocol for optimal evaluation of pulmonary arterial tree. Maximum intensity projections 3D imaging was utilized All CT scans are performed using dose optimization technique as appropriate and may include automated exposure control or mA/KV adjustment according to patient size. FINDINGS: A pulmonary embolus is not seen. A thoracic aortic aneurysm is not noted. A pleural effusion is not seen. A pericardial effusion is not seen. Mild right and [id number] left ground-glass opacities within the lungs. IMPRESSION: Negative for a pulmonary embolism. Mild right and rbxi-[id number] left ground-glass opacities within the lungs. This can be seen with C ovid pneumonia
[2020-09-09 13:45] LABS: Blood Morphology Comment NOT SEEN (NOT SEEN); Platelet Estimate DECR; Platelets, Giant NOTED; White Blood Cell Scan OK (OK)
--- NOTE | 2020-09-09 14:48 | ER ---
Nurse's Notes [facility] Name: Jersey De Leon Jr Age: 65 yrs Sex: Male : 1955 Arrival Date: 09/09/2020 Time: 10:49 Bed 8 Private MD: Moi Berry R Diagnosis: Pneumonia due to SARS-associated coronavirus Presentation: 09/09 11:16 Chief complaint: Patient states: SOB, fever x1w. pt states his is also sick. tr6 Coronavirus screen: At this time, unable to obtain information related to travel outside the [place] Client presents with at least one sign or symptom that may indicate coronavirus-19. Standard/surgical mask placed on the client. Provider contacted for isolation considerations. Ebola Screen: No symptoms or risks identified at this time. Initial Sepsis Screen: Does the patient meet any 2 criteria? RR > 20 per min. HR > 90 bpm. Yes Does the patient have a suspected source of infection? No. Patient's initial sepsis screen is negative. Risk Assessment: Do you want to hurt yourself or someone else? Patient reports no desire to harm self or others. Onset of symptoms is unknown. 11:16 Method Of Arrival: Ambulatory tr6 11:16 Method Of Arrival: Wheelchair tr6 11:16 Acuity: RODERICK 3 tr6 Triage Assessment: 12:05 Respiratory: Reports shortness of breath cough that is Onset: The symptoms/episode tr6 began/occurred gradually, the patient has mild shortness of breath. Historical: - Allergies: 11:18 Morphine; tr6 11:18 Paxil; tr6 - PMHx: 11:18 CAD; Diabetes - NIDDM; High Cholesterol; Kidney stones; Leukemia; tr6 - Immunization history:: Adult Immunizations up to date, Client reports having NOT received the Covid vaccine. - Social history:: Smoking status: Patient reports the use of cigarette tobacco products, smokes one-half pack cigarettes per day. Screenin:15 Abuse screen: Denies threats or abuse. Denies injuries from another. Nutritional tr6 screening: No deficits noted. Tuberculosis screening: No symptoms or risk factors identified. Fall Risk None identified. Assessment: 11:19 Pain: Denies pain. Respiratory: Airway is patent. tr6 12:04 General: Appears in no apparent distress. comfortable, Behavior is calm, cooperative, tr6 appropriate for age. Pain: Denies pain. Neuro: No deficits noted. Level of Consciousness is awake, alert, obeys commands, Oriented to person, place, time, situation, Appropriate for age. Cardiovascular: No deficits noted. Denies chest pain, Rhythm is sinus rhythm. Respiratory: Respiratory: Respiratory effort is unlabored, Respiratory pattern is regular. GI: No deficits noted. : No deficits noted. EENT: No deficits noted. Derm: No deficits noted. Musculoskeletal: No deficits noted. 12:05 Respiratory: Breath sounds with crackles. tr6 14:14 Reassessment: ambulation trial on RA, pt tolerated well, maintaining O2 sat 92-93%. tr6 Vital Signs: 10:59 BP 102 / 84; Pulse 109; Resp 24 S; Pulse Ox 91% on R/A; iw 11:18 BP 104 / 81; Pulse 104; Resp 22; Temp 101.3(O); Pulse Ox 90% ; tr6 12:00 BP 127 / 77; Pulse 100; Resp 20; Pulse Ox 93% on R/A; tr6 14:00 BP 129 / 86; Pulse 73; Resp 18; Temp 98.7; Pulse Ox 94% on R/A; tr6 ED Course: 10:49 Patient arrived in ED. mr 10:49 Moi Berry MD is Private Physician. mr 10:59 [facility] jr8 10:59 Hernan Sena MD is Attending Physician. jr8 11:15 Shayy Burnett, STAN is Primary Nurse. tr6 11:15 Patient has correct armband on for positive identification. Bed in low position. Call tr6 light in reach. Side rails up X 1. Door closed. Noise minimized. Visitors limited. Lights dimmed. Moved to private room. Warm blanket given. 11:15 No provider procedures requiring assistance completed. tr6 11:18 Triage completed. tr6 11:30 Initial lab(s) drawn, by me, sent to lab. First set of blood cultures drawn by me, EKG mh5 done, by ED staff, reviewed by Hernan Sena MD. 11:41 Inserted saline lock: 20 gauge in right antecubital area, using aseptic technique. mh5 Blood collected. 11:42 Basic Metabolic Panel Sent. mh5 11:42 Blood Culture Sent. mh5 11:42 BMP Sent. mh5 11:42 Blood Culture Adult (2) Sent. mh5 11:42 C-Reactive Protein Sent. mh5 11:42 CBC with Diff Sent. mh5 11:42 D-Dimer Sent. mh5 11:42 Ferritin Sent. mh5 11:43 Flu Sent. mh5 11:43 LFT's Sent. mh5 11:43 Lactate Sent. mh5 11:43 PT-INR Sent. mh5 11:43 Procalcitonin Sent. mh5 11:43 Ptt, Activated Sent. mh5 11:43 Troponin (emerg Dept Use Only) Sent. mh5 11:54 Alexandre cath inserted, using sterile technique, [address], balloon inflated. mh5 12:05 Arm band placed on right wrist. tr6 12:07 Alexandre cath inserted, using sterile technique, 16 Fr., by experimental box tester, balloon inflated, 5 urine specimen collected. 12:10 CXR XRAY In Process Unspecified. EDMS 12:10 X-ray completed. Portable x-ray completed in exam room. Patient tolerated procedure 1 well. 12:48 CT Chest For PE Angio In Process Unspecified. EDMS 14:14 Alexandre cath removed intact, balloon deflated. tr6 14:47 Moi Berry MD is Referral Physician. jr8 15:08 IV discontinued, intact, bleeding controlled, No redness/swelling at site. Pressure tr6 dressing applied. Administered Medications: 11:52 Drug: Tylenol 1000 mg Route: PO; tr6 11:53 Follow up: Response: No adverse reaction tr6 Outcome: 14:47 Discharge ordered by . jr8 15:08 Discharged to home ambulatory, pt refused wheelchair. pt ambulates with cane. gait tr6 stead 15:08 Condition: good 15:08 Discharge instructions given to patient, Instructed on discharge instructions, follow up and referral plans. no drinking with medication, medication usage, safety practices, Demonstrated understanding of instructions, follow-up care, medications, Prescriptions given X 2. 15:09 Patient left the ED. tr6 Signatures: Dispatcher [employer] [facility] Jordyn Acevedo Martha 1 Maxine Osborne RN RN iw Roszak, Josh, PA PA jr8 Lindsay Sears 5 Ramnanan, Shayy, RN RN tr6 Corrections: (The following items were deleted from the chart) 12:05 11:19 Respiratory: Respiratory effort is labored, tr6 tr6 12:41 11:42 CORONAVIRUS+ drawn and sent. [facility] EDMT
--- NOTE | 2020-09-09 14:48 | EDPHYS ---
Physician Documentation [facility] Name: Jersey De Leon Jr Age: 65 yrs Sex: Male : 1955 Arrival Date: 09/09/2020 Time: 10:49 Bed 8 Private MD: Moi Berry R ED Physician Hernan Sena HPI: 09/09 15:04 This 65 yrs old Male presents to ER via Wheelchair with complaints of jr8 Breathing Difficulty. 15:04 The patient has shortness of breath at rest, with light activity. Onset: The jr8 symptoms/episode began/occurred gradually, 1 week(s) ago. Duration: The symptoms are continuous. The patient's shortness of breath is aggravated by exertion, is alleviated by rest, sitting up. Associated signs and symptoms: Pertinent positives: non-productive cough, fever. Severity of symptoms: At their worst the symptoms were moderate in the emergency department the symptoms are unchanged. The patient has not experienced similar symptoms in the past. The patient has not recently seen a physician. Historical: - Allergies: 11:18 Morphine; tr6 11:18 Paxil; tr6 - PMHx: 11:18 CAD; Diabetes - NIDDM; High Cholesterol; Kidney stones; Leukemia; tr6 - Immunization history:: Adult Immunizations up to date, Client reports having NOT received the Covid vaccine. - Social history:: Smoking status: Patient reports the use of cigarette tobacco products, smokes one-half pack cigarettes per day. ROS: 15:04 Eyes: Negative for injury, pain, redness, and discharge, ENT: Negative for injury, jr8 pain, and discharge, Neck: Negative for injury, pain, and swelling, Cardiovascular: Negative for chest pain, palpitations, and edema, Abdomen/GI: Negative for abdominal pain, nausea, vomiting, diarrhea, and constipation, Back: Negative for injury and pain, MS/Extremity: Negative for injury and deformity, Skin: Negative for injury, rash, and discoloration, Neuro: Negative for headache, weakness, numbness, tingling, and seizure. 15:04 Constitutional: Positive for fever. 15:04 Respiratory: Positive for cough, dyspnea on exertion, shortness of breath. Exam: 15:04 Eyes: Pupils equal round and reactive to light, extra-ocular motions intact. Lids and jr8 lashes normal. Conjunctiva and sclera are non-icteric and not injected. Cornea within normal limits. Periorbital areas with no swelling, redness, or edema. ENT: Nares patent. No nasal discharge, no septal abnormalities noted. Tympanic membranes are normal and external auditory canals are clear. Oropharynx with no redness, swelling, or masses, exudates, or evidence of obstruction, uvula midline. Mucous membranes moist. Neck: Trachea midline, no thyromegaly or masses palpated, and no cervical lymphadenopathy. Supple, full range of motion without nuchal rigidity, or vertebral point tenderness. No Meningismus. Cardiovascular: Regular rate and rhythm with a normal S1 and S2. No gallops, murmurs, or rubs. Normal PMI, no JVD. No pulse deficits. Abdomen/GI: Soft, non-tender, with normal bowel sounds. No distension or tympany. No guarding or rebound. No evidence of tenderness throughout. Back: No spinal tenderness. No costovertebral tenderness. Full range of motion. Skin: Warm, dry with normal turgor. Normal color with no rashes, no lesions, and no evidence of cellulitis. MS/ Extremity: Pulses equal, no cyanosis. Neurovascular intact. Full, normal range of motion. Neuro: Awake and alert, GCS 15, oriented to person, place, time, and situation. Cranial nerves II-XII grossly intact. Motor strength 5/5 in all extremities. Sensory grossly intact. Cerebellar exam normal. Normal gait. 15:04 Respiratory: the patient does not display signs of respiratory distress, Respirations: tachypnea, that is mild, Breath sounds: are clear throughout, no bronchial sounds, no decreased breath sounds, no rales, rhonchi, no stridor, no wheezing. Vital Signs: 10:59 BP 102 / 84; Pulse 109; Resp 24 S; Pulse Ox 91% on R/A; iw 11:18 BP 104 / 81; Pulse 104; Resp 22; Temp 101.3(O); Pulse Ox 90% ; tr6 12:00 BP 127 / 77; Pulse 100; Resp 20; Pulse Ox 93% on R/A; tr6 14:00 BP 129 / 86; Pulse 73; Resp 18; Temp 98.7; Pulse Ox 94% on R/A; tr6 MDM: 11:00 Patient medically screened. jr8 14:45 Data reviewed: vital signs, nurses notes, lab test result(s), EKG, radiologic studies, [facility] CT scan, plain films. Data interpreted: Pulse oximetry: on room air is 93 %. Interpretation: acceptable. Counseling: I had a detailed discussion with the patient and/or guardian regarding: the historical points, exam findings, and any diagnostic results supporting the discharge/admit diagnosis, lab results, radiology results, the need for outpatient follow up, a family practitioner, to return to the emergency department if symptoms worsen or persist or if there are any questions or concerns that arise at home. ED course: Discussed in detail patient's condition and that he is borderline at best. That he is Covid positive and has significant elevation in inflammatory markers and some of his heart enzymes. Although he is hemodynamically stable and oxygen is acceptable at this time on room air and with exertion. Cautioned him about going home as his condition can quickly deteriorate. Patient understands this but still wants to go home as his tested positive as well and he feels like she is worse off than he has and wants to take care of her. Close return precautions given to patient which he understands fully. Will discharge at this time.. 09/09 11:19 Order name: BMP 09/09 11:19 Order name: Blood Culture Adult (2) [facility] 09/09 11:19 Order name: C-Reactive Protein; Complete Time: 12:33 [facility] 09/09 11:19 Order name: CBC with Diff; Complete Time: 13:54 [facility] 09/09 11:19 Order name: D-Dimer; Complete Time: 12:20 [facility] 09/09 11:19 Order name: Ferritin; Complete Time: 12:33 09/09 11:19 Order name: Flu; Complete Time: 12:20 [facility] 09/09 11:19 Order name: LFT's; Complete Time: 12:33 [facility] 09/09 11:19 Order name: Lactate; Complete Time: 12:20 [facility] 09/09 11:19 Order name: PT-INR; Complete Time: 12:20 [facility] 09/09 11:19 Order name: Procalcitonin; Complete Time: 12:54 09/09 11:19 Order name: Ptt, Activated; Complete Time: 12:20 [facility] 09/09 11:19 Order name: Troponin (emerg Dept Use Only); Complete Time: 12:33 jr8 09/09 11:19 Order name: CXR XRAY; Complete Time: 12:33 8 09/09 11:19 Order name: EKG; Complete Time: 11:20 jr8 09/09 11:19 Order name: Cardiac monitoring; Complete Time: 11:31 8 09/09 11:19 Order name: Droplet/Contact Precautions; Complete Time: 11:41 8 09/09 11:19 Order name: EKG - Nurse/Tech; Complete Time: 11:31 8 09/09 11:19 Order name: Alexandre; Complete Time: 11:53 8 09/09 11:19 Order name: IV Start; Complete Time: 11:42 8 09/09 11:19 Order name: Labs collected and sent; Complete Time: 11:31 8 09/09 11:19 Order name: O2 Per Protocol; Complete Time: 11:31 8 09/09 11:19 Order name: Basic Metabolic Panel; Complete Time: 12:33 [facility] 09/09 11:19 Order name: Blood Culture [facility] 09/09 12:21 Order name: Urine Dipstick-Ancillary; Complete Time: 12:27 EDMS 09/09 12:33 Order name: CT Chest For PE Angio; Complete Time: 13:54 jr8 09/09 12:55 Order name: CBC Smear Scan; Complete Time: 13:54 EDMS 09/09 13:47 Order name: SARS-COV-2 RT PCR; Complete Time: 13:54 [facility] 09/09 11:19 Order name: O2 Sat Monitoring; Complete Time: 11:31 jr8 09/09 11:19 Order name: Urine Dipstick-Ancillary (obtain specimen); Complete Time: 12:08 jr8 Administered Medications: 11:52 Drug: Tylenol 1000 mg Route: PO; tr6 11:53 Follow up: Response: No adverse reaction tr6 Disposition: 09/10 07:09 Co-signature as Attending Physician, Hernan Sena MD I agree with the assessment and mikaela plan of care. Disposition Summary: 09/09/20 14:47 Discharge Ordered Location: Home jr Problem: new jr8 Symptoms: have improved jr8 Condition: Stable jr8 Diagnosis - Pneumonia due to SARS-associated coronavirus jr8 Followup: jr8 - With: Moi Berry MD - When: 1 - 2 days - Reason: Recheck today's complaints, Continuance of care, Re-evaluation by your physician Discharge Instructions: - Discharge Summary Sheet jr8 - COVID-19 jr8 Forms: - Medication Reconciliation Form jr8 - Thank You Letter jr8 - Antibiotic Education jr8 - Prescription Opioid Use jr8 Prescriptions: - ivermectin 3 mg Oral tablet - take 4 tablet by ORAL route once daily for 5 days; 20 tablet; Refills: 0, jr8 Product Selection Permitted - Prednisone 20 mg Oral Tablet - take 1 tablet by ORAL route once daily for 7 days; 7 tablet; Refills: 0, jr8 Product Selection Permitted Signatures: Dispatcher [employer] EDMS Hernan Sena MD MD cha Roszak, Josh, PA PA jr8 Shayy Burnett RN RN tr6 Corrections: (The following items were deleted from the chart) 09/09 12:41 11:20 CORONAVIRUS+MR.LAB.BRZ ordered. EDNY EDMS
[2020-09-09 15:21] VITALS: BP 129/86; TEMP 98.7; O2SAT 94
--- NOTE | 2020-09-10 07:42 | EKG ---
Test Date: 2020-09-09 Test Time: 11:14:55 Core Worker: YVAN MEASUREMENT RESULTS: Intervals: Rate: 104 AK: 150 QRSD: 100 QT: 352 QTc: 462 [place]: P: 54 AK: 150 QRS: -44 T: 102 INTERPRETIVE STATEMENTS: Sinus tachycardia Possible Left atrial enlargement Left axis deviation Inferior infarct, age undetermined T wave abnormality, consider lateral ischemia Abnormal ECG Compared to ECG 05/15/2020 14:44:14 T-wave abnormality now present Possible ischemia now present Sinus rhythm no longer present Left ventricular hypertrophy no longer present Early repolarization no longer present Myocardial infarct finding still present Electronically Signed On 09-10-20 07:39:52 CDT by Shawn Lockhart
== END 2020-09-09 15:09 | disposition home or self-care (01) ==
LOC: ER 10:42
DX: U07.1 COVID-19 (principal); J12.82 Pneumonia due to coronavirus disease 2019; F17.210 Nicotine dependence, cigarettes, uncomplicated; Z88.5 Allergy status to narcotic agent; Z88.8 Allergy status to other drugs, medicaments and biological substances
CPT/HCPCS: 87040 ×2; 85025; 80048; 36415; 85610; 85379; 80076; 83605; 85730; 81003; 84484; 82728; 84145; 86140; 87804 ×2; 71275; 71045; U0003; Q9967; 93005

== ENCOUNTER 2020-10-17 16:28 | Emergency (ER) | payer OTHER ==
--- OUTSIDE RECORDS SUMMARY | 2020-10-17 16:38 | XMS REPORT | Continuity of Care Document ---
:[address] [facility] t Address [address] [place] [address] Care Team Providers Name Role Phone Asked, Pcp Primary Care Physician Unavailable SYSTEM, NOT IN Attending Clinician Unavailable DO SORENSEN Attending Clinician Unavailable TAL Attending Clinician Unavailable Ravindra MORAN Attending Clinician Unavailable Girish Dunn RN Attending Clinician LAMONT LATHAM Attending Clinician Unavailable Lamont Latham MD Attending Clinician Kath GUZMÁN Attending Clinician Tian GUZMÁN Attending Clinician Sin Brown Attending Clinician Unavailable Gilmar PIERCE, S Attending Clinician Unavailable Tian GUZMÁN Attending Clinician Doctor Unassigned, Name Attending Clinician Unavailable LAMONT LATHAM Admitting Clinician Unavailable Payers Payer Name Policy Type Policy Number Effective Date Expiration Date S valdez MEDICARE PART A AND [id number] 2020 B 00:00:00 [employer] [id number] 2020 [facility]:00[facility] [id number] 2015 PPO 00:00:00 Problems Condition Condition Condition Status Onset Resolution Last Treating Co mments Source Name Details Category Date Date Treatment Clinician Date Stenosis Stenosis Disease [facility] - carotid carotid 00:00: Medical artery artery 00 Center Right Right Disease Active [facility] carotid carotid 05-29 [facility] - artery artery 00:00: Medical occlusion occlusion 00 Cent er Ischemic Ischemic Disease Active 2017-02 Meth[facility] di cardiomyop cardiomyop 02-25 st 00:00: Hospita 00 l HTN HTN Disease Active [facility] (hypertens (hypertens 08-29 Vania kes - ion) ion) 00:00: Medical 00 Center DM DM Disease Active [facility] (diabetes (diabetes 08-29 [facility] - mellitus) mellitus) 00:00: Medi harpal 00 Center [place] VT Disease Active [facility] (ventricul (ventricul 08-29 [facility] - ar ar 00:00: Medical tachycardi tachycardi 00 Ce nter a) a) Systolic Systolic Disease Active [facility] heart heart 08-29 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 - insufficie insufficie Me dical ncy ncy Center S/P CABG x S/P CABG x Disease Active [facility] 2 2 [facility] Cardiogeni Cardiogeni Disease Active C [facility] c shock c shock [facility] Lactic Lactic Disease Active [facility] acidosis acidosis [facility] Acute Acute Disease Active [facility] respirator respirator Vania kes - y failure y failure Medi [facility] with with Center hypoxia hypoxia Allergies, Adverse [...] Palpitations Respirato [facility] Allergy 08-17 [facility] - 00:00: depressio Medical 00 n Center Paroxeti Propensi Active [facility] ne Hcl ty to 08-17 [facility] - adverse 00:00: Medical reaction 00 Center s Social History Social Habit Start Date Stop Date Quantity Comments Source History [facility] Judaism Alcohol Binge Hospital History [facility] Judaism Alcohol Std Drinks Hospit al Sex Assigned At [facility] Cigarettes smoked 2020-05-30 2020-05-30 [facility] varsha - current (pack per 00:00:00 00:00:00 [facility] day) - Reported Cigarette 2020-05-30 2020-05-[address] [facility] [address] [facility] - pack-years 00:00:00 00:00:00 [facility] Tobacco use and 2020-05-30 2020-05-30 Former user [facility] L ukes - exposure 00:00:00 00:00:00 [facility] Alcohol intake 2020-05-30 2020-05-[address] [facility] [address] Gonzalez es - 00:00:00 00:00:00 non-drinker of Medical Ce nter alcohol (finding) History [facility] 2017-12-26 2017-12-26 1 Judaism Alcohol Frequency 00:00:00 00:00:00 [facility] l Smoking Status Start Date Stop Date Source Current every day smoker 2020-05-30 00:00:00 [facility] Medications Ordered Filled Start Stop Current Ordering Indication Dosage Frequency Signature Comments Components Source Medication Medication Date Date Medication? Clinician (SIG) Name Name ipratropium Yes 2{puff} [id number] Inhale 2 [facility] (ATROVENT 4-24 [id number] puffs by [facility] - HFA) 17 13:25: 3D mouth via Medic al mcg/actuati [address] on inhaler (three) times daily. aspirin 81 Yes 81mg QD Take [address] MG EC 4-24 by mouth [facility] - tablet 13:25: daily. [address] atorvastati Yes 80mg QD Take 80 mg [...] 25mg Take [address] e - 04-23 by mouth [facility] - (PHENERGAN) 22:33: 00:00 every 8 Me dical 12.5 MG 14 :00 (eight) Center tablet hours as needed for Nausea. glipiZIDE 2020- No 5mg Take [address] (GLUCOTROL) - 04-23 by mouth 2 L ukes - 10 MG 22:33: 00:00 (two) Medical tablet 14 :00 times Center daily before meals . cetirizine 2020- No 10mg QD Take [address] (ZYRTEC) 10 4-14 04-14 by mouth Carlos es - mg Cap 11:19: 00:00 nightly. Medica l 32 :00 [place] insulin 2019-02 Yes 15U Inject 15 [facility] t glargine 0-28 Units [facility] - (Lantus 00:00: subcutaneo Medi harpal Solostar 00 usly daily Cente r U-100 with Insulin) breakfast 100 unit/mL . (3 mL) In insulin 2019-02 Yes 4U Inject [facility] lispro 0-28 4-10 Units [facility] - (HumaLOG 00:00: subcutaneo Med ical KwikPen 00 usly Center Insulin) Sliding 100 unit/mL scale. In budesonide- 2019-02 Yes 2{puff} Q.5D [address] formoteroL 0-23 (two) [facility] - (Symbicort) 00:00: times Medic al 160-4.5 00 daily. Center mcg/actuati on inhaler traMADol 2017-02 Yes 50mg Take [address] (ULTRAM) 50 2-27 by mouth. Carlos es - mg tablet 00:00: Medical 00 Center glipiZIDE 2017-02 Yes 10mg QD Take 10 [...] calcium 39 l (500 mg) chewable tablet atorvastati 2017-02 Yes 80mg QD Take 80 mg Methodi n (LIPITOR) 1-[address] 80 MG 15:07: daily. Hospita tablet 39 States l cholestero l levels have improved, and also needs new prescripti on aspirin 2017-02 Yes 81mg QD Take 81 mg Meth joo (ECOTRIN) 1-[address] 81 MG 15:07: daily. Hospita enteric 39 l coated tablet atorvastati 2017-02 Yes 80mg QD Take 80 [...] calcium 39 l (500 mg) chewable tablet ipratropium 2017-02 Yes 1{puff} Inhale 1 [...] evening. l States has not needed recently amiodarone 2020- No Take [address] (PACERONE) 08-29 for 7 days Vania kes - 200 MG 00:00: 00:00 then Medical tablet 00 :00 reduced to Center 1 po daily thereafter . Vital Signs Vital Name Observation Time Observation Value Comments Source WEIGHT 2020-06-23 08:36:00 94.2 kg WEIGHT 2020-01-02 09:41:00 101.4 kg WEIGHT 2019-09-05 09:33:21 99.2 kg Heart rate 2020-05-31 09:16:00 92 /min [facility] Respiratory rate 2020-05-31 09:16:00 18 /min [facility] Oxygen saturation in 2020-05-31 09:16:00 97 /min [facility] - Arterial blood by Medical Ce nter Pulse oximetry Systolic blood 2020-05-31 07:00:00 116 mm[Hg] [facility] Diastolic blood 2020-05-31 07:00:00 72 mm[Hg] [facility] Body temperature 2020-05-31 07:00:00 36.33 La [facility] Body height 2020-05-30 16:33:00 185.4 cm [facility] Body weight 2020-05-30 16:33:00 92.8 kg [facility] BMI 2020-05-30 16:33:00 26.99 kg/m2 [facility] Procedures Procedure Date / Time Performed Performing Clinician [facility] PO[facility]-GLUCOSE METER 2020-05-31 08:18:00 Francis Stockton [facility] POCT-GLUCOSE METER 2020-05-30 21:07:00 Francis Stockton [facility] POCT-GLUCOSE METER 2020-05-30 17:05:00 NoaJusto dominguez [facility] POCT-GLUCOSE METER 2020-05-30 12:30:00 NoaJusto dominguez [facility] POCT-GLUCOSE METER 2020-05-30 08:41:00 NoaJusto dominguez [facility] TSH/FREE T4 IF INDICATED 2020-05-30 08:13:00 Bharat Lilly Светлана [facility] RPR 2020-05-30 08:13:00 [facility] VIT[facility] B12 AND FOLATE 2020-05-30 08:13:00 Maxx [facility] CBC W/PLT COUNT & AUTO 2020-05-30 05:45:00 [facility] METABOLIC PANEL 2020-05-30 05:45:[address] MAGNESIUM 2020-05-30 05:45:00 Kath [facility] HEMOGLOBIN A1C 2020-05-30 05:45:00 Kath [facility] LIPID PANEL 2020-05-30 05:45:00 Bharat Lilly [facility] POCT-GLUCOSE METER 2020-05-29 21:23:00 Noa [facility] POCT-GLUCOSE METER 2020-05-29 17:39:00 Noa Justo [facility] GLUCOSE 2020-05-29 15:31:00 Yi Luciano [facility] POTASSIUM 2020-05-29 15:31:00 Yi Luciano [facility] LACTIC ACID, ARTERIAL 2020-05-29 15:31:00 Yi Luciano [facility] BASIC METABOLIC PANEL 2020-05-29 15:31:00 Yi Luciano [address] POCT-GLUCOSE METER 2020-05-29 13:44:00 Justo Latham [facility] POCT-GLUCOSE METER 2020-05-29 12:58:00 NoaJusto dominguez [facility] POCT-GLUCOSE METER 2020-05-29 11:40:00 Noa Justo [facility] XR CHEST 1 VIEW PORTABLE 2020-05-29 11:29:00 Yi Luciano [facility] ECG 12-LEAD 2020-05-29 10:01:02 Unknown, Hl7 Doctor [facility] BLOOD GAS, ARTERIAL 2020-05-29 09:58:[address] [facility] LACTIC ACID, ARTERIAL 2020-05-29 09:56:00 Juan Jose [facility] BASIC METABOLIC PANEL 2020-05-29 09:56:00 Garrick Ingram [facility] () [facility] CBC (HEMOGRAM ONLY) 2020-05-29 09:56:00 Garrick Ingram [facility] MAGNESIUM 2020-05-29 09:56:00 Garrick Ingram [facility] BLOOD GAS, ARTERIAL 2020-05-29 09:08:16 Oliveros, [facility] SODIUM NA-STAT LAB 2020-05-29 09:08:16 Oliveros, [facility] POTASSIUM-STAT LAB 2020-05-29 09:08:16 Oliveros, [facility] GLUCOSE-STAT LAB 2020-05-29 09:08:16 Oliveros, [facility] HGB/HCT (H&H) - STAT LAB 2020-05-29 09:08:16 Oliveros, [facility] TISSUE EXAM 2020-05-29 08:36:[address] [facility] BLOOD GAS, ARTERIAL 2020-05-29 08:13:30 Oliveros, [facility] CALCIUM, IONIZED 2020-05-29 08:13:30 Oliveros, [facility] SODIUM NA-STAT LAB 2020-05-29 08:13:30 Oliveors, [facility] POTASSIUM-STAT LAB 2020-05-29 08:13:30 Oliveros, [facility] GLUCOSE-STAT LAB 2020-05-29 08:13:30 Oliveros, [facility] HGB/HCT (H&H) - STAT LAB 2020-05-29 08:13:30 Oliveros, [facility] ENDARTERECTOMY,CAROTID 2020-05-29 07:00:[address] [facility] TYPE AND SCREEN, 2020-05-29 06:47:00 Justo Latham [facility] POCT-GLUCOSE METER 2020-05-29 06:26:00 Justo Latham [facility] TYPE AND SCREEN, 2020-05-21 12:40:00 Melina Walton [facility] CBC W/PLT COUNT & AUTO 2020-05-21 12:40:[address] [facility] BASIC METABOLIC PANEL 2020-05-21 12:40:00 Melina Walton [facility] () [facility] PROTHROMBIN TIME/INR 2020-05-21 12:40:00 [facility] 2020-05-21 12:15:22 [facility] Care Planned Activity Planned Date Details Comments Source Future Scheduled 2023-05-31 [facility] (procedure) [code = Medical Center 04319780] Future Scheduled 2020-10-08 INFLUENZA VACCINE [facility] - Test 00:00:00 (Season Ended) [code = [facility] INFLUENZA VACCINE (Season Ended)] Future Scheduled 2020-08-29 [address] [facility] Vania kes - Test 00:00:00 [facility] (procedure) [code = 08790679] Future Scheduled 2020-02-09 PNEUMOCOCCAL 65+ YRS [facility] - Test 00:00:00 (1 of 1 - Medical Center [id number] PCV13) [code = PNEUMOCOCCAL 65+ YRS (1 of 1 - [id number] PCV13)] Future Scheduled 2020 Medicare IPPE (WELCOME [...] 00:00:00 examination Medical Center (regime/therapy) [code = 967029343] Future Scheduled 1965 Urine screening [facility] - Test 00:00:00 protein (procedure) Medical Center [code = 468494589] Future Scheduled [address] [facility] es - Test 00:00:00 [facility] (procedure) [code = 174394674] Future Scheduled 65+ [facility]UMOCOCCAL [facility] Test VACCINE (1 of 2 - PPSV23) [code = 65+ PNEUMOCOCCAL VACCINE (1 of 2 - PPSV23)] Future Scheduled DIABETES: [facility]INAL E[facility] EXAM [code = DIABETES: RETINAL EYE EXAM] Future Scheduled [facility]IC [facility] Test [code = DIABETIC FOOT EXAM] Future Scheduled COVID-19 VACCINE (1) Met [facility] Test [code = COVID-19 VACCINE (1)] Future Scheduled Hepatitis C screening [facility] Test (procedure) [code = 082741558] Future Scheduled COLONOSCOPY SCREENING [facility] Test [code = COLONOSCOPY SCREENING] Future Scheduled SHINGLES VACCINES (#1) [facility] Test [code = SHINGLES VACCINES (#1)] Future Scheduled INFLUENZA VACCINE [facility] Test [code = INFLUENZA VACCINE] Future Scheduled 65+ [facility]OCOCCAL [facility] Test VACCINE (1 of 2 - PPSV23) [code = 65+ PNEUMOCOCCAL VACCINE (1 of 2 - PPSV23)] Future Scheduled DIABETES: RETINAL EYE [facility] Test EXAM [code = DIABETES: RETINAL EYE EXAM] Future Scheduled DIABETIC FOOT EXAM [facility] Test [code = DIABETIC FOOT EXAM] Future Scheduled COVID-19 VACCINE (1) [facility] Test [code = COVID-19 VACCINE (1)] Future Scheduled Hepatitis C screening [facility] Test (procedure) [code = 773883033] Future Scheduled COLONOSCOPY SCREENING [facility] Test [code = COLONOSCOPY SCREENING] Future Scheduled SHINGLES VACCINES (#1) [facility] Test [code = SHINGLES VACCINES (#1)] Future Scheduled INFLUENZA VACCINE [facility] Test [code = INFLUENZA VACCINE] Encounters Start End Encounter Admission Attending Care Care Encounter Source Date/Time Date/Time Type Type Clinicians Facility Department ID 2020-07-04 Outpatient SYSTEM, GUILHERME VANEGAS [id number] 11:35:20 PROVIDER Raul hoffman 2020-06-23 2020-06-23 Outpatient CAITLIN SORENSEN MDA MDA [id number] 13:20:00 23:59:00 JUAN hoffman 2020-06-23 2020-06-23 Outpatient CAITLIN PARADA MDA MDA [id number] 09:30:00 13:19:00 NASEEM hoffman 2020-06-23 2020-06-23 Outpatient CAITLIN MORAN MDA MDA [id number] 08:33:20 10:11:09 SILVANA hoffman 2020-06-23 2020-06-23 Outpatient CAITLIN PARADA MDA MDA [id number] 06:51:35 09:29:00 NASEEM hoffman 2020-06-03 2020-06-03 Telephone ShaunJordyn [facility] [id number] [facility] 00:00:00 00:00:00 [facility] 2020-05-29 2020-05-31 Hospital Justo Latham [facility] [id number] [facility] 06:10:00 13:25:00 Encounter Francis Stockton [facility] 2020-05-29 2020-05-29 Anesthesia Nomi Overton [facility] [id number] 07:20:00 10:04:00 Event Venancio Burton [facility] 2020-05-29 2020-05-29 [facility] [id number] 07:30:00 09:45:00 [facility] 2020-05-28 2020-05-28 [facility] [id number] 11:35:00 23:59:[address] [facility] 2020-05-28 2020-05-28 Travel [facility] [id number] [facility] 00:[facility]00 00:00:00 [facility] 2020-05-28 2020-05-28 [facility] [id number] 00:00:00 00:00:00 Margie Dickey [facility] 2020-05-21 2020-05-21 [facility] [id number] 11:09:30 11:24:30 Visit [facility] 2020-05-21 2020-05-21 Orders [facility] [id number] 00:00:00 00:00:00 Only [facility] 2020-05-21 2020-05-21 Travel [facility] [id number] [facility] 00:[facility]00 00:00:00 [facility] 2020-01-02 2020-01-02 Outpatient CAITLIN MORAN MDA MDA [id number] 07:30:00 23:59:00 SILVANA hoffman 2020-01-02 2020-01-02 Outpatient CAITLIN MORAN MDA MDA [id number] 09:20:44 10:25:29 NAVAL Raul o n 2019-12-12 2019-12-12 Telephone Overton[facility] [id number] 00:00:00 00:00:00 Kim Crabtree [id number] [place] [id number] Professio [id number] nal [id number] [facility] 2019-12-05 2019-12-05 Office Tian [facility] [id number] 14:07:04 15:07:40 Visit Kim Crabtree [id number] [place] [id number] Professio [id number] critical access hospital 220 [facility] 2019-12-05 2019-12-05 Orders Doctor VANDANA [id number] 00:00:00 00:00:00 Only Unassigned, REMI [id number] [facility] [id number] 2019-09-05 2019-09-05 Outpatient CAITLIN TALGUILHERME MDA [id number] 10:00:00 23:59:00 NASEEM hoffman 2019-09-05 2019-09-05 Outpatient CAITLIN MORANGUILHERME MDA [id number] 09:04:44 10:45:55 SILVANA Raul o n 2019-09-05 2019-09-05 Outpatient CAITLIN PARADAGUILHERME MDA [id number] 07:35:44 09:59:00 NASEEM hoffman Results Test Description Test Time Test Comments Results Result Comments Source Tissue Exam 2020-06-03 17:13:00 Test Item Value Reference Range Interpretation Comme nts Case Report (test code = 104) Surgical Pathology Report Case: [id number] Authorizing Provider: Justo Latham, Collected: 05/29/2020 08:36 AM Ordering Location: [facility] Received: 05/29/2020 10:20 AM PERIOPERATIVE SERVICES Pathologist: Herb Ramesy MD Specimen: Plaque, Right carotid artery plaque DIAGNOSIS (test code = 3220) t5aktUKuOEBvd0bdQKMsfBYbGnAnNfObBcJdRq pc dWMxIHtccnRmMVxlcGljOTIwMlxhbnNpXHNwbHRw F7QcdggcUYebLT0pLP4kwHuuvKDntNYhMGNaWeQi r6clt942jQPui5lmTDBJevnrqOf6gXcwE39mr3A1 MfcfC85clDYrSFerzNHrvbbvafMuQGOABJIRJWyk TKBVWFVPIMMVKRmCJECFIfKCMjVZNvAQHI6DUZnd bZDbWGZLPWNKUdiZRYFDTXBIK9CXEOASD8ZVFtSR TRWOURDmqYOfGFxCPOmYXWvlAptYWieNYIOXMe0B FsEJRAQbfa08GYG6KpTvc3J0GUQ0FGIbDGYkd9we KBTswIIkOqTxYhAjGaAhKhkgsLVfSBLtMvDdu0ht p183uJQyh0rkGJTwIpS5sUQeGQRknCXbX991PUSl HKuwe0qju8LrCEElkFRej0F3OODKuqaogOt7yNvu Q75sy3V0XeuoV8faBEXfSKYeI3DtLI2fCRNcEag5 FID8OQJ4OULdOLZsF3SeBK8tMAGigTLpERa6u0ny kQbsXAIeWDE7w0ovAXldtgSuXQ2whc2wqXc8g5st miBoSPYkGYZsrMQEVXVwE1GjwGpcYv2asKv6qOph YoelTAL1Xqv5MT4mbi84uxt8pPgmHIYnenhpJlG9 RFgpQDVmanzbQIb8IBuyBCSclTB3KFQqzXJcY2Eb SPUwUN1lwjj3JEU7PObrMWEjUvW1FTUirKZzCGTt eKfxVKtse547GRJ5FiLfLJ3iB8Yxf4D4iK7uhONk KZCcbFHxWhUbEJIqjz9iuXLaMSsid8WaYFL5bqT6 dKVqlDDyEQVrWhP1XAboPT6rtu07HZLrOAO0qm3j uVJzkVjbetAelCHeCDkoV0YaUKPuu809SARfX9Gh AXUgk3I9xhSbCfFkTDByiPY0orX0QPJpMM0nolaw u4leVUpoZKjfQEDnssE5jvP2DVGsjQKdK7VjxG2l IOKjEB2iywugl9alVQH3NQmlADRnWPC0PuLlTTKe t1Zqoqo3YxGcq6SqpUNmMKbxT50jh618KNYtfgFp P3acdZQeqrplqNUkrwokDHdujvB6KAKrRPtrogsf XRNlFLrmM8nwAmBcZAJyzQvsDCpfe6ZlLAYrACRh WyGisJZlBRWfWgr9GBNhvHShAZXnIsSjY4dszisv BfFAYDVkp3tgF4vuzJLJkESqV7HdNSxloyHcWIum FOxtACVfSLR4KN59JlqpZYAvah36 CPT Code(s) (test code = 8687) x8vahRRmUCSvhOA2UvKjJRJpf7kox3EteZWk cGFy HDftzYXpldMsuo15kFS7rM49IJ4gDFXhHzF0HTKp ztC7Ssr2AUDtVFXvaEMwX507z0vuv8vfqjBgwWU1 wYqvSUGzPFOxLMjnHZKvReAmOTcxLOJ9MHm7WmYq XHBhcn0= CLINICAL HISTORY (test code = 5646) u6xznXSkYWMbbOL0OlOtTSKmh0eko8R sdHBncGFy OAchaLJkawYghk89qRI7xS53JE9pLAEuBmA0LIEb ohG3Kgn2JBZoLZLpuYUxT024j3mmq8rfbvTziBL5 cJkdEKRaCBWqLLsfDZNcWlSfU8Fgor7kjXImg1Tx jekcqJRgP2Erf8CrXBJpjbGpzlfvZUSitw6= SPECIMEN SOURCE (test code = 3377) p7rdqDXaVFBlcIV9MlOvKEUhz6gzf1Ce dHBncGFy JQyyyGUbvzDxah67pGF1nT46OI9kQRFzCnD0DJYe xjA4Ozo7UAQhNYJquWUxM772g7dey1taccNbkMB8 fVxwYXJkXHBsYWluXGZzMjAgUGxhcXVlXHBhcn0= GROSS DESCRIPTION (test code = 3366) x2bppPQcYXXpiYVyWlPiVWVnWLImc4 lcZGVmbGFu [file] YXIgUGlsYXIgQXJndWVsbGVzLCBQQSwgSFQgKEFT X7DfAEVyvd8= MICROSCOPIC DESCRIPTION (test code = w8luwTQkDQAprAS5LhKdIYQnf3mfq9 BsdHBncGFy 3371) PGhjyJQbcbTnkd34rEJ0vW62JK2yZDVsTtX2AQSw tpJ5Oai6VWLdMPWysRYoC027n7gqy5bpnaFzxLU1 bZgcNGZiWLGdIPkbYKMtKdBnDKZyIw6sgIBzPBAw cn0= [facility] [id number] 17:13:00Surgical Pathology Report Case: [id number] Authorizing Provider: Justo Latham, Collected: 05/29/2020 08:36 AM OrderingLocation: [facility] Received: 05/29/2020 10:20 AM PERIOPERATIVE SERVICES Pathologist: Herb Ramsey MD Specimen: Plaque, Right carotid artery plaque ARTERY, LEFT CAROTID, ENDARTERECTOMY:CALCIFIC ATHEROSCLEROTIC PLAQUELUMINAL FIBRIN THROMBUS Signing Pathologist Direct Phone Line: [phone] signed by Herb Ramsey MD on 06/03/2020 at 5:13 [id number]; 23845Rcpidagx of right carotid artery PlaqueReceived fresh labeled the patient's name, accession number and "right carotid artery plaque" is a 2.0 x 2.4 x 0.4 cm aggregate of ross-yellow tubular, focally calcified plaque. Shoe Handler sections are submitted in A1 following decalcification.ANA Velázquez, HT (ASC)PerformedPOC-Glucose [id number] 18:38:00 Test Item Value Reference Range Interpretation Comments POC-Glucose Meter (test 221 mg/dL 70-110 H : TE STED AT [facility] code = 1538) [address] [facility], 770 30: Cardiac Nurse Specialist/Techni yu ID = [id number] for Renetta Mcpherson on Lab Interpretation (test Abnormal code = 15567-2) [facility] [id number] 18:38:00 Test Item Value Reference Range Interpretation Comments POC-GLUCOSE METER 221 mg/dL 70-110 H : TESTED A T [facility] 6720 (BEAKER) (test code = [place], 1538) [address]: Cardiac Nurse Specialist/Techni yu ID = [id number] for Noel Hansen ECG 12 [id number] 08:37:12Interface, External Ris In - 06/01/2020 3:14 PM CDTVentricular Rate 70 BPMAtrial Rate 70 BPMP-R Interval 174 msQRS Duration 112 msQ-T Interval 438 msQTC Calculation(Bazett) 473 msP [place] 47 degreesR [place] -42 degreesT [place] 120 degreesNormal sinus rhythm with sinus arrhythmiaLeft atrial enlargementLeft axis deviationInferior infarct (cited on or before 17-AUG-2017)Anterior infarct (cited on or before 22-AUG-2017)T wave abnormality, consider lateral ischemiaAbnormal ECGWhen compared with ECG of 21-MAY-2020 12:15,Premature ventricular complexes are no longer PresentQRS axis Shifted leftT wave inversionno longer evident in Inferior leadsT wave inversion less evident in Lateral leadsConfirmed by MD Viraj Curt ([id number]) on 05/31/2020 8:37:11 [facility] [id number] 21:19:00 Test Item Value Reference Range Interpretation Comments POC-GLUCOSE METER 246 mg/dL 70-110 H : TESTED A T [facility] 6720 (ICVRxAKER) (test code = [facility], 1538) 51907: Cardiac Nurse Specialist/Techni yu ID = [id number] for PE NATI, KANDACE POCT-GLUCOSE [id number] 17:21:00 Test Item Value Reference Range Interpretation Comments POC-GLUCOSE METER 197 mg/dL 70-110 H : TESTED A T [facility] 6720 (BEAKER) (test code = [facility], 1538) [id number]: Cardiac Nurse Specialist/Techni yu ID = [id number] for [place] nguyena POCT-GLUCOSE [id number] 12:47:00 Test Item Value Reference Range Interpretation Comments POC-GLUCOSE METER 239 mg/dL 70-110 H : TESTED A T [facility] 6720 (BEAKER) (test code = [facility], 1538) [id number]: Cardiac Nurse Specialist/Techni yu ID = [id number] for SAFIA LIMAKRISTINE [id number] 10:57:00 Test Item Value Reference Range Interpretation Comments RPR (test code = 95579-0) Nonreactive Nonreactive Lab Interpretation (test code = Normal 06213-4) [facility]57:00 Test Item Value Reference Range Interpretation Comments RPR SCREEN ([facility]) (test code = Nonreactive Nonreactive 420) TSH/Free T4 If [id number] 09:20:00 Test Item Value Reference Range Interpretation Comments TSH (test code = 0.460 See_Comment [Automated 69553-7) message] The system which generated this result transmit david reference range : 0.350 - 4.940 uIU/mL. The reference range was not used to interpret this result as normal/abnormal . JENNA (test code = JENNA) Cardiac Nurse Specialist ID - JAILENE C Lab Interpretation Normal (test code = 30615-5) [facility] CenterVitamin B12 and [id number] 09:20:00 Test Item Value Reference Range Interpretation Comments Vitamin B12 (test 378 pg/mL 213-816 code = 2132-9) Folate (test code = 7.40 ng/mL See_Comment [Automa david 2284-8) message] The system which generated this result transmit david reference range : >=7.00. The reference range was not used to interpret this result as normal/abnormal . JENNA (test code = JENNA) Cardiac Nurse Specialist ID - JAILENE C Lab Interpretation Normal (test code = 17794-7) [facility] CenterTSH[facility]FREE T4 IF [id number] 09:20:00 Test Item Value Reference Range Interpretation Comments THYROID STIMULATING HORMONE 0.460 uIU/mL 0.350-4.940 (AKER) (test code = 772) Cardiac Nurse Specialist ID - JAILENE CVITAMIN B12 AND [id number] 09:20:00 Test Item Value Reference Range Interpretation Comments VITAMIN B12 (BEAKER) 378 pg/mL 213-816 (test code = 774) FOLATE (AKER) 7.40 ng/mL See_Comment [Automated message] (test code = 362) The system which generated this result transmitted ref erence range: >=7.00. The reference range was not used to interpr et this result as normal/abnormal . Cardiac Nurse Specialist ID - JAILENE CPOCT-GLUCOSE [id number] 08:53:00 Test Item Value Reference Range Interpretation Comments POC-GLUCOSE METER 261 mg/dL 70-110 H : TESTED A T [facility] 6720 ([facility]) (test code = [place], 1538) [address]: Cardiac Nurse Specialist/Techni yu ID = [id number] for KRISTINE BEAL Hemoglobin [id number] 08:39:00 Test Item Value Reference Range Interpretation Comments Hemoglobin A1C (test code = 4548-4) 14.5 % 4.3-6.1 H Lab Interpretation (test code = Abnormal 05318-9) [facility] CenterHEMOGLOBIN [id number] 08:39:00 Test Item Value Reference Range Interpretation Comments HEMOGLOBIN A1C (BEAKER) (test code = 14.5 % 4.3-6.1 H 368) Lipid [id number] 07:49:00 Test Item Value Reference Range Interpretation Comments Triglycerides (test 221 mg/dL Specimen code = 2571-8) slightly hemolyzed Cholesterol (test 215 mg/dL Specimen code = 2093-3) slightly hemolyzed HDL (test code = 30 mg/dL 5-9) LDL Calculated (test 141 mg/dL code = 83482-4) JENNA (test code = Triglyceride JENNA) Reference Range: Low Risk <150 Borderline 150-199 High Risk 200-499 Very High Risk >=500 Cholesterol Reference Range: Low Risk <200 Borderline 200-239 High Risk >240 HDL Cholesterol Reference Range: Low Risk >=60 High Risk <40 LDL Cholesterol Reference Range: Optimal <100 Near Optimal 100-129 Borderline 130-159 High 160-189 Very High >=190 Cardiac Nurse Specialist ID - EDASI [facility] CenterLIPID [id number] 07:49:00 Test Item Value Reference Range Interpretation [...] Borderline 130-159 High 160-189 Very High >=190 Cardiac Nurse Specialist ID - EDASIBasic Metabolic [id number] 07:08:00 Test Item Value Reference Range Interpretation Comments Sodium (test code = 138 meq/L 343-849 0987-2) Potassium (test code = 4.3 meq/L 3.5-5.1 [...] Calcium (test code = 8.5 mg/dL 8.4-10.2 69034-5) EGFR (test code = 86 mL/min/1.73 [place] [address]-7) NOT ACCURATE CREATININE CLEARANCE IN PREDICTING GLOMERULAR FILTRATION RATE . ESTIMATED GFR I S NOT APPLICABLE FOR DIALYSIS PATIENTS. JENNA (test code = JENNA) Cardiac Nurse Specialist ID - EDASI Lab Interpretation Abnormal (test code = 12513-8) [facility] CenterMagnesium2021-04-23 07:08:00 Test Item Value Reference Range Interpretation Comments Magnesium (test code = 1.7 mg/dL 1.6-2.6 Speci men 82651-2) slightly hemolyzed JENNA (test code = JENNA) Cardiac Nurse Specialist ID - EDASI Lab Interpretation Normal (test code = 26201-1) [facility] CenterMAGNESIUM2021-04-23 07:08:00 Test Item Value Reference Range Interpretation Comments MAGNESIUM (BEAKER) 1.7 mg/dL 1.6-2.6 Specimen slightly (test code = 627) hemolyzed Cardiac Nurse Specialist ID - EDASIBASIC METABOLIC [id number] 07:08:00 Test Item Value Reference Range Interpretation [...] S NOT APPLICABLE FOR DIALYSIS PATIEN TS. Cardiac Nurse Specialist ID - EDASICBC with platelet count + automated [id number] 06:33:00 Test Item Value Reference Range Interpretation Comments WBC (test code = 6690-2) 10.7 See_Comment H [A utomated message] The system [employer] generated this result transmitted ref erence range: 3.5 - 10 .5 K/L. The refe rence range was not u sed to interpret this result as normal/abnor mal. RBC (test code = 789-8) 5.20 See_Comment [Au tomated message] The system [employer] generated this result transmitted ref erence range: 4.63 - 6 .08 M/L. The refe rence range was not u sed to interpret this result as normal/abnor mal. MCHC (test code = 786-4) 32.6 See_Comment [A utomated message] The system [employer] generated this result transmitted ref erence range: [...] = 148 See_Comment L [Aut omated message] 327-3) The system [employer] generated this result transmitted ref erence range: 150 - 45 0 K/CU MM. The referen ce range was not u sed to interpret this result as normal/abnor mal. MPV (test code = 11.7 fL 9.4-12.4 53025-6) nRBC (test code = 413) 0 See_Comment [Aut omated message] The system [employer] generated this result transmitted ref erence range: [...] H [Aut omated message] 670) The system [employer] generated this result transmitted ref erence range: 1.78 - 5 .38 K/L. The refe rence range was not u sed to interpret this result as normal/abnor mal. # Lymphs (test code = 2.96 See_Comment [Auto mated message] 414) The system [employer] generated this result transmitted ref erence range: 1.32 - 3 .57 K/L. The refe rence range was not u sed to interpret this result as normal/abnor mal. # Monos (test code = 0.58 See_Comment [Autom ated message] 415) The system [employer] generated this result transmitted ref erence range: 0.30 - 0 .82 K/L. The refe rence range was not u sed to interpret this result as normal/abnor mal. # Eos (test code = 416) 0.20 See_Comment [Au tomated message] The system [employer] generated this result transmitted ref erence range: 0.04 - 0 .54 K/L. The refe rence range was not u sed to interpret this result as normal/abnor mal. # Baso (test code = 417) 0.05 See_Comment [A utomated message] The system [employer] generated this result transmitted ref erence range: 0.01 - 0 .08 K/L. The refe rence range was not u sed to interpret this result as normal/abnor mal. Immature 0 % 0-1 Granulocytes-Relative (test code = 2801) Lab Interpretation (test Abnormal code = 72933-9) [facility] W/PLT COUNT & AUTO [id number] 06:33:00 Test Item Value Reference Range Interpretation [...] PERCENT (BEAKER) (test code = 2801) POCT-GLUCOSE [id number] 21:35:00 Test Item Value Reference Range Interpretation Comments POC-GLUCOSE METER 212 mg/dL 70-110 H : TESTED A T [facility] 6720 (BEAKER) (test code = [facility] [employer] [facility], 1538) [address]: Cardiac Nurse Specialist/Techni yu ID = [id number] for DELMER BEEBE SE POCT-GLUCOSE [id number] 17:51:00 Test Item Value Reference Range Interpretation Comments POC-GLUCOSE METER 238 mg/dL 70-110 H : TESTED A T [facility] 6720 (BEAKER) (test code = [employer] [facility], 1538) [address]: Cardiac Nurse Specialist/Techni yu ID = [id number] for PH ILIP, SHELBY BASIC METABOLIC [id number] 17:13:00 Test Item Value Reference Range Interpretation [...] S NOT APPLICABLE FOR DIALYSIS PATIEN TS. Cardiac Nurse Specialist ID - HTHenxopi-DHTQ1795-24-22 16:00:00 Test Item Value Reference Range Interpretation Comments Glucose (test code = 2345-7) 233 mg/dL 70-105 H JENNA (test code = JENNA) Cardiac Nurse Specialist ID - DB Lab Interpretation (test Abnormal code = 08760-6) [facility] CenterPotassium-[id number] 16:00:00 Test Item Value Reference Range Interpretation Comments Potassium (test code = 5.1 meq/L 3.5-5.1 Speci men 2823-3) markedly hemolyzed JENNA (test code = JENNA) Cardiac Nurse Specialist ID - DB Lab Interpretation Normal (test code = 79725-2) [facility] CenterPOTASSIUM2021-04-22 16:00:00 Test Item Value Reference Range Interpretation Comments POTASSIUM (BEAKER) 5.1 meq/L 3.5-5.1 Specimen markedly (test code = 379) hemolyzed Cardiac Nurse Specialist ID - [id number] 16:00:00 Test Item Value Reference Range Interpretation Comments GLUCOSE RANDOM (BEAKER) (test code 233 mg/dL 70-105 H = 652) Cardiac Nurse Specialist ID - DBLactic Acid, Aykammpf0351-89-89 15:58:00 Test Item Value Reference Range Interpretation Comments Lactate, Art (test 1.6 mmol/L 0.5-2.2 Specimen code = 2874) slightly hemolyzed JENNA (test code = JENNA) Cardiac Nurse Specialist ID - DB Lab Interpretation Normal (test code = 00781-1) [facility] CenterLACTIC ACID, [id number] 15:58:00 Test Item Value Reference Range Interpretation Comments LACTATE BLOOD 1.6 mmol/L 0.5-2.2 Specimen sligh tly ARTERIAL (2) (BEAKER) hemoly zed (test code = 2874) Cardiac Nurse Specialist ID - DBPOCT-GLUCOSE [id number] 13:56:00 Test Item Value Reference Range Interpretation Comments POC-GLUCOSE METER 264 mg/dL 70-110 H : TESTED A T [facility] 6720 (BEAKER) (test code = [place], 1538) [address]: Cardiac Nurse Specialist/Techni yu ID = [id number] for MARY BETH BLANCA POCT-GLUCOSE [id number] 13:10:00 Test Item Value Reference Range Interpretation Comments POC-GLUCOSE METER 302 mg/dL 70-110 H : TESTED A T [facility] 6720 (BELEM) (test code = [place], 1538) [address]: Cardiac Nurse Specialist/Techni yu ID = [id number] for MARY BETH BLANCA POCT-GLUCOSE [id number] 13:10:00 Test Item Value Reference Range Interpretation Comments POC-GLUCOSE METER 388 mg/dL 70-110 H : TESTED A T [facility] 6720 (BELEM) (test code = [place], 1538) [address]: Cardiac Nurse Specialist/Techni yu ID = [id number] for MARY BETH BLANCA RAD, CHEST, 1 VIEW, NON [id number] 11:52:00Reason for exam:->s/p cv surgery[facility] : 1955 Sex: MFINAL REPORT RAD, CHEST, 1 VIEW, NON DEPT INDICATION: s/p cv surgery COMPARISON: Prior day's exam FINDINGS: Portable frontal view of the chest. IMPRESSION: Support Lines: Pacer device Lungs and pleura: Mild diffuse interstitial thickening is unchanged. No pneumothorax.Heart and mediastinum: Stable contours.Additional findings: None. Signed: Alayna Murphy Verified Date/Time: 05/29/2020 11:52:15 Reading Location: [facility] Radiology Reading Room XR chest 1 view portable / [id number] 11:52:00 Interface, External Ris In - 05/29/2020 11:54 AM CDTFINAL REPORT RAD, CHEST, 1 VIEW, NON DEPT INDICATION: s/p cv surgery COMPARISON: Prior day's exam FINDINGS: Portable frontal view of the chest. IMPRESSION: Support Lines: Pacer device Lungs and pleura: Mild diffuse interstitial thickening is unchanged. No pneumothorax.Heart and mediastinum: Stable contours.Additional findings: None. Signed: Alayna Murphy Verified Date/Time: 05/29/2020 11:52:15 Reading Location:[facility] Radiology Reading [facility] MET[facility]IC [id number] 10:38:00 Test Item Value Reference Range Interpretation [...] S NOT APPLICABLE FOR DIALYSIS PATIEN TS. Cardiac Nurse Specialist ID - JR [id number] 10:33:00 Test Item Value Reference Range Interpretation Comments MAGNESIUM (BEAKER) 1.7 mg/dL 1.6-2.6 Specimen slightly (test code = 627) hemolyzed Cardiac Nurse Specialist ID - RJ MLACTIC ACID, [id number] 10:30:00 Test Item Value Reference Range Interpretation Comments LACTATE BLOOD 2.4 mmol/L 0.5-2.2 H Specimen sligh tly ARTERIAL (2) (BEAKER) hemoly zed (test code = 2874) Cardiac Nurse Specialist ID - MARY SAUER (Hemogram only)2020-05-29 10:24:00 Test Item Value Reference Range Interpretation Comments WBC (test code = 6690-2) 13.3 See_Comment H [A utomated message] The system [employer] generated this result transmitted ref erence range: 3.5 - 10 .5 K/L. The refe rence range was not u sed to interpret this result as normal/abnor mal. RBC (test code = 789-8) 5.52 See_Comment [Au tomated message] The system [employer] generated this result transmitted ref erence range: 4.63 - 6 .08 M/L. The refe rence range was not u sed to interpret this result as normal/abnor mal. MCHC (test code = 786-4) 33.1 See_Comment [A utomated message] The system [employer] generated this result transmitted ref erence range: [...] See_Comment [Aut omated message] 777-3) The system [employer] generated this result transmitted ref erence range: 150 - 45 0 K/CU MM. The referen ce range was not u sed to interpret this result as normal/abnor mal. MPV (test code = 11.4 fL 9.4-12.4 94051-1) nRBC (test code = 413) 0 See_Comment [Aut omated message] The system [employer] generated this result transmitted ref erence range: 0 - 0 /1 00 WBC. The refere nce range was not u sed to interpret this result as normal/abnor mal. Lab Interpretation (test Abnormal code = 08842-7) [facility] (HEMOGRAM ONLY)2020-05-29 10:24:00 Test Item Value Reference [...] (BEAKER) (test code = 413) Blood gas, [id number] 10:11:00 Test Item Value Reference Range Interpretation Comments pH, Arterial (test code 7.41 7.35-7.45 = 2744-1) pCO2, Arterial (test 34 See_Comment L [Autom ated code = 2019-8) message] The system which generated this result [...] 44 Lab Interpretation Abnormal (test code = 96947-1) [facility] CenterBLOOD GAS, [id number] 10:11:00 Test Item Value Reference Range Interpretation [...] 21-29 = 388) BASE EXCESS ARTERIAL (BEAKER) -2.5 mmol/L -2.0-3.0 L (test code = 387) PATIENT TEMPERATURE (BEAKER) 36.3 (test code = 1818) FIO2 (BEAKER) (test code = 1819) 44.0 HGB/HCT (H&H)-Stat [id number] 09:16:00 Test Item Value Reference Range Interpretation Comments Hemoglobin (test code = 16.9 See_Comment H [Au tomated message] 786-4) The system [employer] generated this result transmitted ref erence range: 13.0 - 1 6.8 GM/DL. The refe rence range was not u sed to interpret this result as normal/abnor mal. Hematocrit (test code = 50.0 % 40-50 4544-3) Lab Interpretation (test Abnormal code = 06578-9) [facility] CenterGlucose-Stat [id number] 09:16:00 Test Item Value Reference Range Interpretation Comments Glucose (test code = 2345-7) 321 mg/dL 70-110 H Lab Interpretation (test code = Abnormal 05770-5) [facility] CenterPotassium-Stat [id number] 09:16:00 Test Item Value Reference Range Interpretation Comments Potassium (test code = 2823-3) 3.3 meq/L 3.6-5.5 L Lab Interpretation (test code = Abnormal 27833-5) [facility] CenterBLOOD GAS, [id number] 09:16:00 Test Item Value Reference Range Interpretation [...] (BEAKER) (test code = 1819) 70.0 POTASSIUM-STAT [id number] 09:16:00 Test Item Value Reference Range Interpretation Comments POTASSIUM (BEAKER) (test code = 3.3 meq/L 3.6-5.5 L 379) GLUCOSE-STAT [id number] 09:16:00 Test Item Value Reference Range Interpretation Comments GLUCOSE RANDOM (BEAKER) (test code 321 mg/dL 70-110 H = 652) HGB/HCT (H&H) - STAT [id number] 09:16:00 Test Item Value Reference Range Interpretation Comments HEMOGLOBIN (BEAKER) (test code = 16.9 GM/DL 13.0-16.8 H 410) HEMATOCRIT (BEAKER) (test code = 50.0 % 40.0-50.0 411) Sodium Na-Stat [id number] 09:14:00 Test Item Value Reference Range Interpretation Comments Sodium (test code = 2951-2) 139 meq/L 136-145 Lab Interpretation (test code = Normal 45228-1) [facility] [id number] 09:14:00 Test Item Value Reference Range Interpretation Comments SODIUM (BEAKER) (test code = 381) 139 meq/L 136-145 Calcium, [id number] 08:23:00 Test Item Value Reference Range Interpretation Comments Calcium, Ion (test code = 1994-3) 1.13 mmol/L 1.12-1.27 pH, Blood (test code = 36862-2) 7.28 [facility], [id number] 08:23:00 Test Item Value Reference Range Interpretation [...] (BEAKER) (test code = 1819) 86.0 GLUCOSE-STAT [id number] 08:23:00 Test Item Value Reference Range Interpretation Comments GLUCOSE RANDOM (BEAKER) (test code 365 mg/dL 70-110 H = 652) HGB/HCT (H&H) - STAT [id number] 08:23:00 Test Item Value Reference Range Interpretation Comments HEMOGLOBIN (BEAKER) (test code = 18.1 GM/DL 13.0-16.8 H 410) HEMATOCRIT (BEAKER) (test code = 53.0 % 40.0-50.0 H 411) CALCIUM, [id number] 08:23:00 Test Item Value Reference Range Interpretation Comments CALCIUM IONIZED (BEAKER) (test 1.13 mmol/L 1.12-1.27 code = 698) PH, BLOOD (BEAKER) (test code = 7.28 1810) SODIUM NA-STAT [id number] 08:22:00 Test Item Value Reference Range Interpretation Comments SODIUM (BEAKER) (test code = 381) 139 meq/L 136-145 POTASSIUM-STAT [id number] 08:22:00 Test Item Value Reference Range Interpretation Comments POTASSIUM (BEAKER) (test code = 3.9 meq/L 3.6-5.5 379) Type and screen, [id number] 07:30:00 Test Item Value Reference Range Interpretation Comments ABO/RH AUTOMATED (BEAKER) (test O POSITIVE code = 2260) Ab Scrn (test code = 890-4) NEGATIVE [facility] [id number] 06:38:00 Test Item Value Reference Range Interpretation Comments POC-GLUCOSE METER 395 mg/dL 70-110 H : TESTED A T [facility] 6720 (BEAKER) [facility] = 1538) [address]: Cardiac Nurse Specialist/Techni yu ID = [id number] for JORD AN, LACRYSTAL BASIC METABOLIC [id number] 13:06:00 Test Item Value Reference Range Interpretation [...] S NOT APPLICABLE FOR DIALYSIS PATIEN TS. Cardiac Nurse Specialist ID - PIAYA LProthrombin time/[id number] 13:03:00 Test Item Value Reference Interpretation Comments Range Protime (test code = 12.3 See_Comment [Autom ated 5902-2) message] The system which generated this result transmitted reference range : 11.9 - 14.2 seconds. The reference range was not used to interpret this result as normal/abnormal . INR (test code = 0.94 See_Comment [Automated 8981-6) message] The system which generated this result [...] valves. Lab Interpretation Normal (test code = 19785-8) [facility] CenterPROTHROMBIN TIME/[id number] 13:03:00 Test Item Value Reference Range Interpretation Comments PROTIME (BEAKER) 12.3 seconds 11.9-14.2 (test code = 759) INR (BEAKER) (test 0.94 See_Comment [Automat ed message] code = 370) The system [employer] generated this result transmitted ref erence range: [...] mechanical heart valves.CBC W/PLT COUNT & AUTO [id number] 12:53:00 Test Item Value Reference Range Interpretation [...] PERCENT (BEAKER) (test code = 2801) BLOOD [id number] 16:48:00 Test Item Value Reference Range Interpretation Comments CULTURE (BEAKER) (test No growth in 5 days code = 1095) BLOOD [id number] 16:48:00 Test Item Value Reference Range Interpretation Comments CULTURE (BEAKER) (test No growth in 5 days code = 1095) [id number] 12:53:00 Test Item Value Reference Range Interpretation Comments MAGNESIUM (BEAKER) (test code = 2.4 mg/dL 1.6-2.6 627) BASIC METABOLIC [id number] 12:53:00 Test Item Value Reference Range Interpretation [...] NOT APPLICABLE FOR DIALYSIS PATIEN TS. POCT-GLUCOSE [id number] 12:15:00 Test Item Value Reference Range Interpretation Comments POC-GLUCOSE METER 277 mg/dL 70-[address] [facility] 6720 (BEAKER) (test code = [facility] [employer] [facility] 1538) [address] POCT-GLUCOSE [id number] 08:07:00 Test Item Value Reference Range Interpretation Comments POC-GLUCOSE METER 184 mg/dL 70-[address] [facility] 6720 (BEAKER) (test code = [facility] 1538) [address] BASIC METABOLIC [id number] 05:15:00 Test Item Value Reference Range Interpretation [...] S NOT APPLICABLE FOR DIALYSIS PATIEN TS. [id number] 05:09:00 Test Item Value Reference Range Interpretation Comments MAGNESIUM (BEAKER) (test code = 1.7 mg/dL 1.6-2.6 627) B-TYPE NATRIURETIC FACTOR (BNP)2017-08-29 05:06:00 Test Item Value Reference Range Interpretation Comments B-TYPE NATRIURETIC PEPTIDE (BEAKER) 370 pg/mL 0-100 H (test code = 700) LACTIC ACID, VENOUS, WHOLE [id number] 04:52:00 Test Item Value Reference Range Interpretation Comments LACTATE BLOOD VENOUS (2) (BEAKER) 1.8 mmol/L 0.5-2.2 (test code = 2872) Effective 06/11/2015: Units/Reference Range ChangeNew: 0.5-2.2 mmol/L Previous: 5-20 mg/dLCBC W/PLT COUNT & AUTO [id number] 04:35:00 Test Item Value Reference Range Interpretation [...] PERCENT (BEAKER) (test code = 2801) POCT-GLUCOSE [id number] 21:17:00 Test Item Value Reference Range Interpretation Comments POC-GLUCOSE METER 280 mg/dL 70-[address] [facility] (test code = [place] 1538) [address] POCT-GLUCOSE [id number] 07:05:00 Test Item Value Reference Range Interpretation Comments POC-GLUCOSE METER 188 mg/dL 70-[address] [facility] 6720 (BEAKER) (test code = [place] 1538) [address] CALCIUM, [id number] 05:24:00 Test Item Value Reference Range Interpretation Comments CALCIUM IONIZED (BEAKER) (test 0.96 mmol/L 1.12-1.27 L code = 698) PH, BLOOD (BEAKER) (test code = 7.46 1810) [id number] 04:51:00 Test Item Value Reference Range Interpretation Comments POTASSIUM (BEAKER) (test code = 2.7 meq/L 3.5-5.1 L 379) PRN - repeat potassium levels every 1 hour until glucose level is less than 450 mg/[id number] 04:51:00 Test Item Value Reference Range Interpretation Comments PHOSPHORUS (BEAKER) (test code = 3.0 mg/dL 2.3-4.7 604) PRN - repeat potassium levels every 1 hour until glucose level is less than 450 mg/dLBASIC METABOLIC [id number] 04:51:00 Test Item Value Reference Range Interpretation [...] than 450 mg/dLCBC W/PLT COUNT & AUTO [id number] 04:16:00 Test Item Value Reference Range Interpretation [...] 0-1 PERCENT (BEAKER) (test code = 2801) [id number] 18:36:00 Test Item Value Reference Range Interpretation Comments POTASSIUM (BEAKER) (test code = 3.0 meq/L 3.5-5.1 L 379) PRN - repeat potassium levels every 1 hour until glucose level is less than 450 mg/[id number] 18:36:00 Test Item Value Reference Range Interpretation Comments MAGNESIUM (BEAKER) (test code = 2.1 mg/dL 1.6-2.6 627) PRN - repeat potassium levels every 1 hour until glucose level is less than 450 mg/dLPOCT-GLUCOSE [id number] 18:21:00 Test Item Value Reference Range Interpretation Comments POC-GLUCOSE METER 173 mg/dL 70-[address] [facility] 6720 (BEAKER) (test code = [place] 1538) [address] POCT-GLUCOSE [id number] 12:08:00 Test Item Value Reference Range Interpretation Comments POC-GLUCOSE METER 206 mg/dL 70-[address] [facility] 6720 (BEAKER) (test code = [place] 1538) [address] [id number] 09:28:00 Test Item Value Reference Range Interpretation Comments POTASSIUM (BEAKER) (test code = 3.1 meq/L 3.5-5.1 L 379) PRN - repeat potassium levels every 1 hour until glucose level is less than 450 mg/[id number] 09:28:00 Test Item Value Reference Range Interpretation Comments MAGNESIUM (BEAKER) (test code = 1.8 mg/dL 1.6-2.6 627) PRN - repeat potassium levels every 1 hour until glucose level is less than 450 mg/[id number] 08:41:00 Test Item Value Reference Range Interpretation Comments PHOSPHORUS (BEAKER) (test code = 3.1 mg/dL 2.3-4.7 604) [id number] 08:41:00 Test Item Value Reference Range Interpretation Comments MAGNESIUM (BEAKER) (test code = 1.8 mg/dL 1.6-2.6 627) BASIC METABOLIC [id number] 08:41:00 Test Item Value Reference Range Interpretation [...] NOT APPLICABLE FOR DIALYSIS PATIEN TS. POCT-GLUCOSE [id number] 07:57:00 Test Item Value Reference Range Interpretation Comments POC-GLUCOSE METER 156 mg/dL 70-[address] [facility] 6720 (BEAKER) (test code = [place] 1538) [address] CALCIUM, [id number] 06:01:00 Test Item Value Reference Range Interpretation Comments CALCIUM IONIZED (BEAKER) (test 1.05 mmol/L 1.12-1.27 L code = 698) PH, BLOOD (BEAKER) (test code = 7.46 1810) OXYGEN SATURATION, [id number] 05:58:00 Test Item Value Reference Range Interpretation Comments O2 SATURATION (MEASURED) (BEAKER) 62.7 % (test code = 1455) [id number] 02:38:00 Test Item Value Reference Range Interpretation Comments POTASSIUM (BEAKER) 3.2 meq/L 3.5-5.1 L Specimen slightly (test code = 379) hemolyzed PRN - repeat potassium levels every 1 hour until glucose level is less than 450 mg/dLCBC W/PLT COUNT & AUTO [id number] 02:29:00 Test Item Value Reference Range Interpretation [...] PERCENT (BEAKER) (test code = 2801) POCT-GLUCOSE [id number] 00:21:00 Test Item Value Reference Range Interpretation Comments POC-GLUCOSE METER 166 mg/dL 70-[address] [facility] 6720 (BEAKER) (test code = [place] 1538) [address] RAD, CHEST, 1 VIEW, NON [id number] 22:03:00Reason for exam:->preopShould this be performed at [...] Rodriguez Verified Date/Time: 08/26/2017 22:03:18 Reading Location: [address] Consult Reading Room [id number] 21:21:00 Test Item Value Reference Range Interpretation Comments PHOSPHORUS (BEAKER) (test code = 1.8 mg/dL 2.3-4.7 L 604) [id number] 21:21:00 Test Item Value Reference Range Interpretation Comments MAGNESIUM (BEAKER) (test code = 2.2 mg/dL 1.6-2.6 627) BASIC METABOLIC [id number] 21:21:00 Test Item Value Reference Range Interpretation [...] NOT APPLICABLE FOR DIALYSIS PATIEN TS. CALCIUM, [id number] 19:57:00 Test Item Value Reference Range Interpretation Comments CALCIUM IONIZED (BEAKER) (test 1.06 mmol/L 1.12-1.27 L code = 698) PH, BLOOD (BEAKER) (test code = 7.48 0377) Check serum Ionized Calcium level after 4 hours after IV Calcium replacement. [id number] 19:35:00 Test Item Value Reference Range Interpretation Comments POTASSIUM (BEAKER) (test code = 3.0 meq/L 3.5-5.1 L 379) PRN - repeat potassium levels every 1 hour until glucose level is less than 450 mg/dLPOCT-GLUCOSE [id number] 18:15:00 Test Item Value Reference Range Interpretation Comments POC-GLUCOSE METER 276 mg/dL 70-[address] [facility] 6720 (BEAKER) (test code = [place] 1538) [address] [id number] 12:52:00 Test Item Value Reference Range Interpretation Comments PHOSPHORUS (BEAKER) (test code = 1.7 mg/dL 2.3-4.7 L 604) [id number] 12:52:00 Test Item Value Reference Range Interpretation Comments MAGNESIUM (BEAKER) (test code = 1.9 mg/dL 1.6-2.6 627) BASIC METABOLIC [id number] 12:52:00 Test Item Value Reference Range Interpretation [...] NOT APPLICABLE FOR DIALYSIS PATIEN TS. CALCIUM, [id number] 12:51:00 Test Item Value Reference Range Interpretation Comments CALCIUM IONIZED (BEAKER) (test 1.01 mmol/L 1.12-1.27 L code = 698) PH, BLOOD (BEAKER) (test code = 7.49 1810) OXYGEN SATURATION, [id number] 12:50:00 Test Item Value Reference Range Interpretation Comments O2 SATURATION (MEASURED) (AKER) 59.9 % (test code = 1455) POCT-GLUCOSE [id number] 11:41:00 Test Item Value Reference Range Interpretation Comments POC-GLUCOSE METER 236 mg/dL 70-110 H TESTED AT [place] [address] ([facility]) (test code = [facility] 1538) [address] OXYGEN SATURATION, [id number] 08:00:00 Test Item Value Reference Range Interpretation Comments O2 SATURATION (MEASURED) (BEAKER) 65.7 % (test code = 1455) POCT-GLUCOSE [id number] 07:53:00 Test Item Value Reference Range Interpretation Comments POC-GLUCOSE METER 204 mg/dL 70-110 H TESTED AT [place] [address] ([facility]) (test code = [facility] 1538) [address] SPUTUM CULTURE + GRAM [id number] 07:40:00 Test Item Value Reference Range Interpretation Comments CULTURE (BEAKER) Oropharyngeal (test code = 1095) contamination, specimen rejected. Recollect requested. GRAM STAIN RESULT No White blood cells seen (BEAKER) (test code = 1123) GRAM STAIN RESULT >25 epithelial cells (BEAKER) (test code = 19738) GRAM STAIN RESULT <1+ yeast with (BEAKER) (test code pseudohyphae = 00843) RAD, ABDOMEN/KUB, 1 VIEW [id number] 07:34:00Reason for exam:->corpak placementShould this be performed at the bedside?->YesFINAL REPORT Abdomen one view shows feeding tube at the pylorus. Signed: Vandana Alfredo Verified Date/Time: 08/26/2017 07:34:48 Reading Location: [facility] Radiology Reading Room RAD, CHEST, 1 VIEW, NON [id number] 07:27:00Reason for exam:->respiratory insufficiencyShould this be performed [...] Todd Verified Date/Time: 08/26/2017 07:27:28 Reading Location: [facility] Radiology Reading Room BASIC METABOLIC [id number] 05:32:00 Test Item Value Reference Range Interpretation [...] S NOT APPLICABLE FOR DIALYSIS PATIEN TS. [id number] 05:31:00 Test Item Value Reference Range Interpretation Comments MAGNESIUM (BEAKER) (test code = 2.2 mg/dL 1.6-2.6 627) CBC W/PLT COUNT & AUTO [id number] 04:49:00 Test Item Value Reference Range Interpretation [...] 2801) CT BRAIN WITHOUT IV CONTRAST - [id number] 02:23:00Reason for exam:- >confusion/delirium, altered LOC unexplainedFINAL [...] MDReport Verified Date/Time: 08/26/2017 02:23:10 Reading Location: [address] Body Reading Room [id number] 01:02:00 Test Item Value Reference Range Interpretation Comments POTASSIUM (BEAKER) (test code = 3.3 meq/L 3.5-5.1 L 379) PRN - repeat potassium levels every 1 hour until glucose level is less than 450 mg/[id number] 01:02:00 Test Item Value Reference Range Interpretation Comments MAGNESIUM (BEAKER) (test code = 1.9 mg/dL 1.6-2.6 627) PRN - repeat potassium levels every 1 hour until glucose level is less than 450 mg/dLPOCT-GLUCOSE [id number] 22:07:00 Test Item Value Reference Range Interpretation Comments POC-GLUCOSE METER 270 mg/dL 70-[address] [facility] 6720 (BEAKER) (test code = [place] 1538) [address] BLOOD GAS, [id number] 21:24:00 Test Item Value Reference Range Interpretation [...] code = 1819) 44.0 % SODIUM NA-STAT [id number] 21:19:00 Test Item Value Reference Range Interpretation Comments SODIUM (BEAKER) (test code = 381) 142 meq/L 135-148 [id number] 20:16:00 Test Item Value Reference Range Interpretation Comments MAGNESIUM (BEAKER) 2.3 mg/dL 1.6-2.6 Specimen slightly (test code = 627) hemolyzed PRN - repeat potassium levels every 1 hour until glucose level is less than 450 mg/[id number] 20:16:00 Test Item Value Reference Range Interpretation Comments POTASSIUM (BEAKER) 3.6 meq/L 3.5-5.1 Specimen slightly (test code = 379) hemolyzed PRN - repeat potassium levels every 1 hour until glucose level is less than 450 mg/[id number] 18:42:00 Test Item Value Reference Range Interpretation Comments SODIUM (BEAKER) (test code = 381) 144 meq/L 136-145 EEG AWAKE AND [id number] 18:32:00Reason for exam:->To rule out seizures/ AMSDATE OF REPORT: CC: [id number] Number: [id number] time: 14:55 Stop time: 15:20ICD-10: R56.9CPT Code: 53224 HISTORY: 62 yo male with PMHx of ALL, AR, HTN, 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 [...] BEAR WEBSTER MD on 08/25/2017 06:32 PMBLOOD [id number] 17:49:00 Test Item Value Reference Range Interpretation Comments CULTURE (BEAKER) (test No growth in 5 days code = 1095) BLOOD [id number] 17:48:00 Test Item Value Reference Range Interpretation Comments CULTURE (BEAKER) (test No growth in 5 days code = 1095) POCT-GLUCOSE [id number] 17:30:00 Test Item Value Reference Range Interpretation Comments POC-GLUCOSE METER 254 mg/dL 70-[address] [facility] 67 (BEAKER) (test code = [place] [facility] 1538) [address] POCT-GLUCOSE [id number] 11:50:00 Test Item Value Reference Range Interpretation Comments POC-GLUCOSE METER 252 mg/dL 70-110 H TESTED AT [place] [address] ([facility]) (test code = [place] [facility] 1538) [address] POCT-GLUCOSE [id number] 09:11:00 Test Item Value Reference Range Interpretation Comments POC-GLUCOSE METER 312 mg/dL 70-110 H TESTED AT [place] [address] ([facility]) (test code = [place] [facility] 1538) [address] RAD, CHEST, 1 VIEW, NON [id number] 07:31:00Reason for exam:->pulmonary edemaShould this be performed at the bedside?->YesFINAL REPORT Chest one view compared to August 24 Discussion: Mild cardiac prominence and interstitial edema are noted. No effusion or pneumothorax. Feeding tube and right IJ line in place. IMPRESSIONS: Interstitial edema is worse. Signed: Vandana Todd Verified Date/Time: 08/25/2017 07:31:54 Reading Location: [facility] Radiology Reading Room [id number] 07:13:00 Test Item Value Reference Range Interpretation Comments MAGNESIUM (BEAKER) (test code = 1.8 mg/dL 1.6-2.6 627) BASIC METABOLIC [id number] 07:13:00 Test Item Value Reference Range Interpretation [...] PATIEN TS. CBC W/PLT COUNT & AUTO [id number] 04:57:00 Test Item Value Reference Range Interpretation [...] (BEAKER) (test code = 2801) BLOOD GAS, [id number] 04:31:00 Test Item Value Reference Range Interpretation [...] code = 1819) 44.0 % OXYGEN SATURATION, [id number] 04:20:00 Test Item Value Reference Range Interpretation Comments O2 SATURATION (MEASURED) (BEAKER) 64.8 % (test code = 1455) POCT-GLUCOSE [id number] 22:39:00 Test Item Value Reference Range Interpretation Comments POC-GLUCOSE METER 196 mg/dL 70-[address] [facility] 6720 (BEAKER) (test code = [place] 1538) [address] [id number] 19:20:00 Test Item Value Reference Range Interpretation Comments POTASSIUM (BEAKER) 3.8 meq/L 3.5-5.1 Specimen slightly (test code = 379) hemolyzed PRN - repeat potassium levels every 1 hour until glucose level is less than 450 mg/dLCALCIUM, [id number] 18:28:00 Test Item Value Reference Range Interpretation Comments CALCIUM IONIZED ([facility]) (test 1.04 mmol/L 1.12-1.27 L code = 698) PH, BLOOD ([facility]) (test code = 7.49 1810) Check serum Ionized Calcium level after 4 hours after IV Calcium replacement. POCT-GLUCOSE [id number] 18:23:00 Test Item Value Reference Range Interpretation Comments POC-GLUCOSE METER 194 mg/dL 70-110 H TESTED AT [place] [address] ([facility]) (test code = [facility] 1538) [address] VANCOMYCIN LEVEL, [id number] 16:50:00 Test Item Value Reference Range Interpretation Comments VANCOMYCIN TROUGH ([facility]) (test 11.3 ug/mL 10.0-20.0 code = 522) Please draw 30 minutes prior to next Vancomycin [id number] 16:06:00 Test Item Value Reference Range Interpretation Comments POTASSIUM (BEAKER) (test code = 3.6 meq/L 3.5-5.1 379) PRN - repeat potassium levels every 1 hour until glucose level is less than 450 mg/[id number] 13:08:00 Test Item Value Reference Range Interpretation Comments POTASSIUM (BEAKER) (test code = 3.4 meq/L 3.5-5.1 L 379) PRN - repeat potassium levels every 1 hour until glucose level is less than 450 mg/dLPOCT-GLUCOSE [id number] 12:38:00 Test Item Value Reference Range Interpretation Comments POC-GLUCOSE METER 217 mg/dL 70-110 H TESTED AT [place] [address] ([facility]) (test code = [facility] 1538) [address] [id number] 11:26:00 Test Item Value Reference Range Interpretation Comments [facility] (test code 0.74 ng/mL <0.05 H = 3036) SEPSIS RISK (ng/mL)Low: 0.05-0.50Intermediate: 0.51-2.00High: >=2.01CALCIUM, [id number] 10:51:00 Test Item Value Reference Range Interpretation Comments CALCIUM IONIZED (BEAKER) (test 1.06 mmol/L 1.12-1.27 L code = 698) PH, BLOOD (BEAKER) (test code = 7.39 1810) Check serum Ionized Calcium level after 4 hours after IV Calcium replacement. [id number] 08:53:00 Test Item Value Reference Range Interpretation Comments POTASSIUM (BEAKER) (test code = 3.6 meq/L 3.5-5.1 379) Check Serum Potassium level 2 hours after oral potassium replacement completed or 30 min after intravenous potassium replacement.[id number] 08:53:00 Test Item Value Reference Range Interpretation Comments MAGNESIUM (BEAKER) (test code = 2.6 mg/dL 1.6-2.6 627) Check Serum Potassium level 2 hours after oral potassium replacement completed or 30 min after intravenous potassium replacement.POCT-GLUCOSE [id number] 07:35:00 Test Item Value Reference Range Interpretation Comments POC-GLUCOSE METER 180 mg/dL 70-[address] [facility] 6720 (BEAKER) (test code = [place] 1538) [address] [id number] 04:29:00 Test Item Value Reference Range Interpretation Comments PHOSPHORUS (BEAKER) (test code = 2.9 mg/dL 2.3-4.7 604) [id number] 04:29:00 Test Item Value Reference Range Interpretation Comments MAGNESIUM (BEAKER) (test code = 1.9 mg/dL 1.6-2.6 627) BASIC METABOLIC [id number] 04:29:00 Test Item Value Reference Range Interpretation [...] PATIEN TS. RAD, CHEST, 1 VIEW, NON [id number] 04:23:00Reason for exam:->ptxShould this be performed at [...] MDReport Verified Date/Time: 08/24/2017 04:23:14 Reading Location: [address] Reading Room PROTHROMBIN TIME/[id number] 04:15:00 Test Item Value Reference Range Interpretation [...] (BEAKER) (test code = 2801) BLOOD GAS, [id number] 03:54:00 Test Item Value Reference Range Interpretation [...] code = 1819) 100.0 % OXYGEN SATURATION, [id number] 03:54:00 Test Item Value Reference Range Interpretation Comments O2 SATURATION (MEASURED) (BEAKER) 65.9 % (test code = 1455) CALCIUM, [id number] 03:54:00 Test Item Value Reference Range Interpretation Comments CALCIUM IONIZED (BEAKER) (test 1.02 mmol/L 1.12-1.27 L code = 698) PH, BLOOD (BEAKER) (test code = 7.44 1810) POCT-GLUCOSE [id number] 00:15:00 Test Item Value Reference Range Interpretation Comments POC-GLUCOSE METER 221 mg/dL 70-[address] [facility] 6720 (BEAKER) (test code = [place] 1538) [address] [id number] 00:13:00 Test Item Value Reference Range Interpretation Comments POTASSIUM (BEAKER) (test code = 3.3 meq/L 3.5-5.1 L 379) PRN - repeat potassium levels every 1 hour until glucose level is less than 450 mg/[id number] 21:10:00 Test Item Value Reference Range Interpretation Comments POTASSIUM (BEAKER) (test code = 3.6 meq/L 3.5-5.1 379) PRN - repeat potassium levels every 1 hour until glucose level is less than 450 mg/[id number] 21:10:00 Test Item Value Reference Range Interpretation Comments MAGNESIUM (BEAKER) (test code = 2.3 mg/dL 1.6-2.6 627) PRN - repeat potassium levels every 1 hour until glucose level is less than 450 mg/dLCALCIUM, [id number] 20:49:00 Test Item Value Reference Range Interpretation Comments CALCIUM IONIZED ([facility]) (test 1.02 mmol/L 1.12-1.27 L code = 698) PH, BLOOD ([facility]) (test code = 7.40 1810) Check serum Ionized Calcium level after 4 hours after IV Calcium replacement. POCT-GLUCOSE [id number] 19:20:00 Test Item Value Reference Range Interpretation Comments POC-GLUCOSE METER 157 mg/dL 70-110 H TESTED AT [place] [address] ([facility]) (test code = [place] [facility] 1538) [address] POCT-GLUCOSE [id number] 19:20:00 Test Item Value Reference Range Interpretation Comments POC-GLUCOSE METER 108 mg/dL 70-110 TESTED AT [place] [address] ([facility]) (test code = [facility] [place] [facility] 1538) [address] POCT-GLUCOSE [id number] 19:20:00 Test Item Value Reference Range Interpretation Comments POC-GLUCOSE METER 130 mg/dL 70-110 H TESTED AT [place] [address] ([facility]) (test code = [facility] [place] [facility] 1538) [address] POCT-GLUCOSE [id number] 19:20:00 Test Item Value Reference Range Interpretation Comments POC-GLUCOSE METER 172 mg/dL 70-110 H TESTED AT [place] [address] ([facility]) (test code = [facility] [place] [facility] 1538) [address] POCT-GLUCOSE [id number] 19:20:00 Test Item Value Reference Range Interpretation Comments POC-GLUCOSE METER 215 mg/dL 70-110 H TESTED AT [place] [address] ([facility]) (test code = [facility] [place] [facility] 1538) [address] [id number] 15:32:00 Test Item Value Reference Range Interpretation Comments POTASSIUM ([facility]) (test code = 3.1 meq/L 3.5-5.1 L 379) PRN - repeat potassium levels every 1 hour until glucose level is less than 450 mg/[id number] 15:32:00 Test Item Value Reference Range Interpretation Comments MAGNESIUM (BEAKER) (test code = 1.9 mg/dL 1.6-2.6 627) PRN - repeat potassium levels every 1 hour until glucose level is less than 450 mg/dLCALCIUM, [id number] 14:59:00 Test Item Value Reference Range Interpretation Comments CALCIUM IONIZED (BEAKER) (test 0.96 mmol/L 1.12-1.27 L code = 698) PH, BLOOD (BEAKER) (test code = 7.46 1810) Check serum Ionized Calcium level after 4 hours after IV Calcium replacement. [id number] 13:11:00 Test Item Value Reference Range Interpretation Comments MAGNESIUM (BEAKER) (test code = 2.0 mg/dL 1.6-2.6 627) BASIC METABOLIC [id number] 10:37:00 Test Item Value Reference Range Interpretation [...] APPLICABLE FOR DIALYSIS PATIEN TS. U/S, ABDOMINAL, [id number] 10:24:00Abdomen limited area? Add comment if clarification [...] (liver protocol) for further evaluation. Signed: Evelyn Mcneal MDReport Verified Date/Time: 08/23/2017 10:24:29 Reading Location: [address] Ultrasound Reading Room SPUTUM CULTURE + GRAM [id number] 09:59:00 Test Item Value Reference Range Interpretation Comments CULTURE (BEAKER) (test See comment code = 1095) GRAM STAIN RESULT 2+ WBCs (BEAKER) (test code = 1123) GRAM STAIN RESULT 5-10 epithelial cells (BEAKER) (test code = 856288) GRAM STAIN RESULT No organisms seen (BEAKER) (test code = 266009) <1+ YeastNo Normal respiratory jessica presentCBC W/PLT COUNT & AUTO [id number] 09:57:00 Test Item Value Reference Range Interpretation [...] Range Interpretation Comments O2 SATURATION (MEASURED) (AKER) 75.1 % (test code = 1455) POCT-GLUCOSE [id number] 09:06:00 Test Item Value Reference Range Interpretation Comments POC-GLUCOSE METER 175 mg/dL 70-110 H TESTED AT [place] [address] ([facility]) (test code = [facility] 1538) [address] POCT-GLUCOSE [id number] 09:06:00 Test Item Value Reference Range Interpretation Comments POC-GLUCOSE METER 108 mg/dL 70-110 TESTED AT [place] [address] ([facility]) (test code = [facility] 1538) [address] POCT-GLUCOSE [id number] 09:06:00 Test Item Value Reference Range Interpretation Comments POC-GLUCOSE METER 95 mg/dL 70-110 TESTED AT [place] [address] ([facility]) (test code = [facility] [address] 1538) POCT-GLUCOSE [id number] 09:06:00 Test Item Value Reference Range Interpretation Comments POC-GLUCOSE METER 120 mg/dL 70-110 H TESTED AT [place] [address] ([facility]) (test code = [facility] 1538) [address] PLATELET AGGREGATION: DRUG [id number] 08:24:00 Test Item Value Reference Range Interpretation [...] (BEAKER) ADP suggest a (test code = 074970) R4E84-lqjasdeot drug effect. [id number] Chanel Ryder, (BEAKER) (test code = (electronic 6006) signature) PLATELET COUNT AGG 120 K/CU MM 150-450 L (BEAKER) (test code = 2656) RAD, CHEST, 1 VIEW, NON [id number] 07:26:00Reason for exam:->ptxShould this be performed at the bedside?->YesFINAL REPORT Chest one view compared to August 22 Discussion: Cardiac prominence and mild pulmonary congestion are similar. No effusion or pneumothorax. Right IJ line in place. Support tubes noted. Signed: Vandana Todd Verified Date/Time: 08/23/2017 07:26:37 Reading Location: [facility] Radiology Reading Room BLOOD GAS, [id number] 07:25:00 Test Item Value Reference Range Interpretation [...] (BEAKER) (test code = 1819) 80.0 % [id number] 06:34:00 Test Item Value Reference Range Interpretation Comments FERRITIN (BEAKER) (test code = 361) 268 ng/mL 5-275 VITAMIN B12 AND [id number] 06:34:00 Test Item Value Reference Range Interpretation Comments VITAMIN B12 (BEAKER) (test code = 500 pg/mL 213-816 774) FOLATE (BEAKER) (test code = 362) 12.4 ng/mL >=7.0 RETICULOCYTE [id number] 06:01:00 Test Item Value Reference Range Interpretation [...] % 20-55 L (test code = 2590) [id number] 05:50:00 Test Item Value Reference Range Interpretation Comments MAGNESIUM (BEAKER) (test code = 2.1 mg/dL 1.6-2.6 627) BASIC METABOLIC [id number] 05:50:00 Test Item Value Reference Range Interpretation [...] NOT APPLICABLE FOR DIALYSIS PATIEN TS. CALCIUM, [id number] 05:33:00 Test Item Value Reference Range Interpretation Comments CALCIUM IONIZED (BEAKER) (test 1.02 mmol/L 1.12-1.27 L code = 698) PH, BLOOD (BEAKER) (test code = 7.45 1810) BLOOD GAS, [id number] 05:32:00 Test Item Value Reference Range Interpretation Comments PH ARTERIAL (BEAKER) (test code = 7.45 7.35-7.45 383) PCO2 ARTERIAL (BEAKER) (test code 46 mmHg 35-45 H = 384) PO2 ARTERIAL (BEAKER) (test code = 79 mmHg 80-90 L 385) O2 SATURATION ARTERIAL ([facility]) 96.1 % 96.0-97.0 (test code = 386) HCO3 ARTERIAL ([facility]) (test code 31 mmol/L 21-29 H = 388) BASE EXCESS ARTERIAL ([facility]) 6.6 mmol/L -2.0-3.0 H (test code = 387) PATIENT TEMPERATURE ([facility]) (test 37.0 C code = 1818) FIO2 ([facility]) (test code = 1819) 40.0 % POCT-GLUCOSE [id number] 02:47:00 Test Item Value Reference Range Interpretation Comments POC-GLUCOSE METER 137 mg/dL 70-110 H TESTED AT [place] [address] ([facility]) (test code = [facility] 1538) [address] POCT-GLUCOSE [id number] 02:47:00 Test Item Value Reference Range Interpretation Comments POC-GLUCOSE METER 171 mg/dL 70-110 H TESTED AT [place] [address] ([facility]) (test code = [facility] 1538) [address] POCT-GLUCOSE [id number] 02:47:00 Test Item Value Reference Range Interpretation Comments POC-GLUCOSE METER 159 mg/dL 70-110 H TESTED AT [place] [address] ([facility]) (test code = [facility] 1538) [address] [id number] 00:39:00 Test Item Value Reference Range Interpretation Comments MAGNESIUM ([facility]) (test code = 1.8 mg/dL 1.6-2.6 627) PRN - repeat potassium levels every 1 hour until glucose level is less than 450 mg/[id number] 00:39:00 Test Item Value Reference Range Interpretation Comments POTASSIUM ([facility]) (test code = 3.1 meq/L 3.5-5.1 L 379) PRN - repeat potassium levels every 1 hour until glucose level is less than 450 mg/dLPOCT-GLUCOSE [id number] 23:44:00 Test Item Value Reference Range Interpretation Comments POC-GLUCOSE METER 129 mg/dL 70-110 H TESTED AT [place] [address] ([facility]) (test code = [place] [facility] [place] 1538) [address] POCT-GLUCOSE [id number] 23:44:00 Test Item Value Reference Range Interpretation Comments POC-GLUCOSE METER 130 mg/dL 70-110 H TESTED AT [place] [address] ([facility]) (test code = [facility] 1538) [address] POCT-GLUCOSE [id number] 23:44:00 Test Item Value Reference Range Interpretation Comments POC-GLUCOSE METER 156 mg/dL 70-110 H TESTED AT [place] [address] ([facility]) (test code = [facility] [place] [facility] 1538) [address] POCT-GLUCOSE [id number] 22:17:00 Test Item Value Reference Range Interpretation Comments POC-GLUCOSE METER 173 mg/dL 70-110 H TESTED AT [place] [address] ([facility]) (test code = [facility] [place] [facility] 1538) [address] POCT-GLUCOSE [id number] 22:17:00 Test Item Value Reference Range Interpretation Comments POC-GLUCOSE METER 160 mg/dL 70-110 H TESTED AT [place] [address] ([facility]) (test code = [facility] [place] [facility] 1538) [address] POCT-GLUCOSE [id number] 18:53:00 Test Item Value Reference Range Interpretation Comments POC-GLUCOSE METER 147 mg/dL 70-110 H TESTED AT [place] [address] ([facility]) (test code = [facility] 1538) [address] POCT-GLUCOSE [id number] 18:53:00 Test Item Value Reference Range Interpretation Comments POC-GLUCOSE METER 157 mg/dL 70-110 H TESTED AT [place] [address] ([facility]) (test code = [facility] 1538) [address] [id number] 17:05:00 Test Item Value Reference Range Interpretation Comments AMMONIA ([facility]) 54 mol/L 18-72 Specimen sl ightly (test code = 348) hemolyzed VANCOMYCIN LEVEL, [id number] 16:53:00 Test Item Value Reference Range Interpretation Comments VANCOMYCIN TROUGH ([facility]) (test 10.8 ug/mL 10.0-20.0 code = 522) Please draw 30 minutes prior to vancomycin due time. Do not administer if vancomycin trough is >20 mcg/mL. Thank you!POCT-GLUCOSE [id number] 16:50:00 Test Item Value Reference Range Interpretation Comments POC-GLUCOSE METER 157 mg/dL 70-110 H TESTED AT [place] [address] ([facility]) (test code = [place] [facility] 1538) [address] [id number] 16:50:00 Test Item Value Reference Range Interpretation Comments MAGNESIUM ([facility]) (test code = 2.1 mg/dL 1.6-2.6 627) POCT-GLUCOSE [id number] 16:50:00 Test Item Value Reference Range Interpretation Comments POC-GLUCOSE METER 141 mg/dL 70-110 H TESTED AT [place] [address] ([facility]) (test code = [place] [facility] 1538) [address] POCT-GLUCOSE [id number] 16:50:00 Test Item Value Reference Range Interpretation Comments POC-GLUCOSE METER 149 mg/dL 70-110 H TESTED AT [place] [address] ([facility]) (test code = [place] [facility] 1538) [address] POCT-GLUCOSE [id number] 16:50:00 Test Item Value Reference Range Interpretation Comments POC-GLUCOSE METER 123 mg/dL 70-110 H TESTED AT [place] [address] ([facility]) (test code = [place] [facility] 1538) [address] POCT-GLUCOSE [id number] 16:50:00 Test Item Value Reference Range Interpretation Comments POC-GLUCOSE METER 105 mg/dL 70-110 TESTED AT [place] [address] ([facility]) (test code = [place] [facility] 1538) [address] [id number] 12:25:00 Test Item Value Reference Range Interpretation Comments PROCALCITONIN ([facility]) (test code 2.33 ng/mL <0.05 H = 3036) SEPSIS RISK (ng/mL)Low: 0.05-0.50Intermediate: 0.51-2.00High: >=2.01URINALYSIS W/ REFLEX URINE [id number] 11:50:00 Test Item Value Reference Range Interpretation [...] 1521) SOURCE(BEAKER) (test code = 2795) TROPONIN [id number] 09:25:00 Test Item Value Reference Range Interpretation [...] completed or 30 min after intravenous potassium replacement.[id number] 09:24:00 Test Item Value Reference Range Interpretation Comments POTASSIUM (BEAKER) (test code = 4.3 meq/L 3.5-5.1 379) PRN - repeat glucose levels every 1 hour or as specified by insulin titration orders until glucose level is less than 450 mg/dLCheck Serum Potassium level 2 hours after oral potassium replacement completed or 30 min after intravenous potassium replacement.[id number] 08:59:00 Test Item Value Reference Range Interpretation Comments GLUCOSE RANDOM (BEAKER) (test code 110 mg/dL 70-105 H = 652) PRN - repeat glucose levels every 1 hour or as specified by insulin titration orders until glucose level is less than 450 mg/dLCheck Serum Potassium level 2 hours after oral potassium replacement completed or 30 min after intravenous potassium replacement.CALCIUM, [id number] 08:43:00 Test Item Value Reference Range Interpretation Comments CALCIUM IONIZED (BEAKER) (test 1.04 mmol/L 1.12-1.27 L code = 698) PH, BLOOD (BEAKER) (test code = 7.47 1810) Check serum Ionized Calcium level after 4 hours after IV Calcium replacement. RAD, CHEST, 1 VIEW, NON [id number] 07:25:00Reason for exam:->ptxShould this be performed at the bedside?->YesFINAL REPORT Chest one view compared to August 21, 2017 Discussion: Support tubes and right IJ line in place. Cardiac prominence is noted. Lungs clear. Drainage tubes visible. No effusion or pneumothorax. Signed: Vandana Todd Verified Date/Time: 08/22/2017 07:25:51 Reading Location: [facility] Radiology Reading Room POCT-GLUCOSE [id number] 06:35:00 Test Item Value Reference Range Interpretation Comments POC-GLUCOSE METER 116 mg/dL 70-110 H TESTED AT [place] [address] ([facility]) (test code = [place] [facility] 1538) [address] POCT-GLUCOSE [id number] 05:20:00 Test Item Value Reference Range Interpretation Comments POC-GLUCOSE METER 136 mg/dL 70-[address] [facility] 67[address] ([facility] (test code = [place] [facility] 1538) [address] CALCIUM, [id number] 04:22:00 Test Item Value Reference Range Interpretation Comments CALCIUM IONIZED (BEAKER) (test 1.05 mmol/L 1.12-1.27 L code = 698) PH, BLOOD (BEAKER) (test code = 7.47 1810) BLOOD GAS, [id number] 04:17:00 Test Item Value Reference Range Interpretation [...] code = 1819) 40.0 % OXYGEN SATURATION, [id number] 04:11:00 Test Item Value Reference Range Interpretation Comments O2 SATURATION (MEASURED) (BEAKER) 50.9 % (test code = 1455) BASIC METABOLIC [id number] 04:07:00 Test Item Value Reference Range Interpretation [...] S NOT APPLICABLE FOR DIALYSIS PATIEN TS. [id number] 04:06:00 Test Item Value Reference Range Interpretation Comments PHOSPHORUS (BEAKER) (test code = 3.8 mg/dL 2.3-4.7 604) LACTIC ACID, ARTERIAL, WHOLE [id number] 04:05:00 Test Item Value Reference Range Interpretation Comments LACTATE BLOOD ARTERIAL (2) 0.9 mmol/L 0.5-2.2 (BEAKER) (test code = 2874) Effective 06/11/2015: Units/Reference Range ChangeNew: 0.5-2.2 mmol/L Previous: 5-20 mg/[id number] 04:02:00 Test Item Value Reference Range Interpretation Comments MAGNESIUM (BEAKER) (test code = 2.1 mg/dL 1.6-2.6 627) CBC W/PLT COUNT & AUTO [id number] 03:52:00 Test Item Value Reference Range Interpretation [...] PERCENT (BEAKER) (test code = 2801) POCT-GLUCOSE [id number] 03:45:00 Test Item Value Reference Range Interpretation Comments POC-GLUCOSE METER 148 mg/dL 70-110 H TESTED AT [place] [address] ([facility]) (test code = [place] 1538) [address] POCT-GLUCOSE [id number] 02:36:00 Test Item Value Reference Range Interpretation Comments POC-GLUCOSE METER 155 mg/dL 70-110 H TESTED AT [place] [address] ([facility]) (test code = [place] 1538) [address] POCT-GLUCOSE [id number] 01:16:00 Test Item Value Reference Range Interpretation Comments POC-GLUCOSE METER 136 mg/dL 70-110 H TESTED AT [place] [address] ([facility]) (test code = [place] [facility] 1538) [address]683 POCT-GLUCOSE [id number] 00:22:00 Test Item Value Reference Range Interpretation Comments POC-GLUCOSE METER 124 mg/dL 70-110 H TESTED AT [place] [address] ([facility]) (test code = [place] 1538) [address] [id number] 23:28:00 Test Item Value Reference Range Interpretation Comments MAGNESIUM ([facility]) (test code = 1.9 mg/dL 1.6-2.6 627) POCT-GLUCOSE [id number] 23:11:00 Test Item Value Reference Range Interpretation Comments POC-GLUCOSE METER 112 mg/dL 70-110 H TESTED AT [place] [address] ([facility]) (test code = [facility] 1538) [address]69 POCT-GLUCOSE [id number] 22:02:00 Test Item Value Reference Range Interpretation Comments POC-GLUCOSE METER 132 mg/dL 70-110 H TESTED AT [place] [address] ([facility]) (test code = [facility] 1538) [address]38 POCT-GLUCOSE [id number] 21:40:00 Test Item Value Reference Range Interpretation Comments POC-GLUCOSE METER 130 mg/dL 70-110 H TESTED AT [place] [address] ([facility]) (test code = [facility] 1538) 13058 [id number] 20:58:00 Test Item Value Reference Range Interpretation Comments POTASSIUM (BEAKER) (test code = 3.9 meq/L 3.5-5.1 379) PRN - repeat potassium levels every 1 hour until glucose level is less than 450 mg/dLPOCT-GLUCOSE [id number] 20:31:00 Test Item Value Reference Range Interpretation Comments POC-GLUCOSE METER 111 mg/dL 70-110 H TESTED AT [place] [address] ([facility]) (test code = [facility] 1538) [address]60 POCT-GLUCOSE [id number] 19:24:00 Test Item Value Reference Range Interpretation Comments POC-GLUCOSE METER 133 mg/dL 70-110 H TESTED AT [place] [address] ([facility]) (test code = [facility] 1538) 98269 POCT-GLUCOSE [id number] 17:41:00 Test Item Value Reference Range Interpretation Comments POC-GLUCOSE METER 140 mg/dL 70-110 H TESTED AT [place] [address] ([facility]) (test code = [facility] 1538) 0[address] [id number] 16:40:00 Test Item Value Reference Range Interpretation Comments POTASSIUM (BEAKER) (test code = 3.9 meq/L 3.5-5.1 379) PRN - repeat glucose levels every 1 hour or as specified by insulin titration orders until glucose level is less than 450 mg/dLCheck Serum Potassium level 2 hours after oral potassium replacement completed or 30 min after intravenous potassium replacement.[id number] 16:40:00 Test Item Value Reference Range Interpretation Comments MAGNESIUM (BEAKER) (test code = 2.0 mg/dL 1.6-2.6 627) PRN - repeat glucose levels every 1 hour or as specified by insulin titration orders until glucose level is less than 450 mg/dLCheck Serum Potassium level 2 hours after oral potassium replacement completed or 30 min after intravenous potassium replacement.[id number] 16:40:00 Test Item Value Reference Range Interpretation Comments GLUCOSE RANDOM ([facility]) (test code 131 mg/dL 70-105 H = 652) PRN - repeat glucose levels every 1 hour or as specified by insulin titration orders until glucose level is less than 450 mg/dLCheck Serum Potassium level 2 hours after oral potassium replacement completed or 30 min after intravenous potassium replacement.CALCIUM, [id number] 16:16:00 Test Item Value Reference Range Interpretation Comments CALCIUM IONIZED ([facility]) (test 1.06 mmol/L 1.12-1.27 L code = 698) PH, BLOOD ([facility]) (test code = 7.42 1810) Check serum Ionized Calcium level after 4 hours after IV Calcium replacement. POCT-GLUCOSE [id number] 16:13:00 Test Item Value Reference Range Interpretation Comments POC-GLUCOSE METER 131 mg/dL 70-110 H TESTED AT [place] [address] ([facility]) (test [facility] = [facility] 1538) [address]296 POCT-GLUCOSE [id number] 16:13:00 Test Item Value Reference Range Interpretation Comments POC-GLUCOSE METER 133 mg/dL 70-110 H TESTED AT [place] [address] ([facility]) (test code = [facility] [place] [facility] 1538) [address]248 POCT-GLUCOSE [id number] 16:13:00 Test Item Value Reference Range Interpretation Comments POC-GLUCOSE METER 89 mg/dL 70-110 TESTED AT [place] [address] ([facility]) (test code = [facility] [address] 1538) POCT-GLUCOSE [id number] 16:13:00 Test Item Value Reference Range Interpretation Comments POC-GLUCOSE METER 130 mg/dL 70-110 H TESTED AT [place] [address] ([facility]) (test code = [facility] [place] [facility] 1538) [address]107 POCT-GLUCOSE [id number] 16:13:00 Test Item Value Reference Range Interpretation Comments POC-GLUCOSE METER 137 mg/dL 70-110 H TESTED AT [place] [address] ([facility]) (test code = [place] 1538) [address] POCT-GLUCOSE [id number] 16:13:00 Test Item Value Reference Range Interpretation Comments POC-GLUCOSE METER 131 mg/dL 70-110 H TESTED AT [place] [address] ([facility]) (test code = [place] 1538) [address]607 POCT-GLUCOSE [id number] 16:13:00 Test Item Value Reference Range Interpretation Comments POC-GLUCOSE METER 129 mg/dL 70-110 H TESTED AT [place] [address] ([facility]) (test code = [place] 1538) [address] POCT-GLUCOSE [id number] 16:13:00 Test Item Value Reference Range Interpretation Comments POC-GLUCOSE METER 145 mg/dL 70-110 H TESTED AT [place] [address] ([facility]) (test code = [place] 1538) [address] RAD, CHEST, 1 VIEW, NON [id number] 10:45:00Reason for exam:->NEW CENTRAL LINE INSERTION (R) [...] nonspecific patchy bibasilar airspace disease. Signed: Greta Armenta [facility] Verified Date/Time: 08/21/2017 10:45:33 Reading Location: [address] Consult Reading Room CBC W/PLT COUNT & AUTO [id number] 09:55:00 Test Item Value Reference Range Interpretation Comments WHITE BLOOD CELL COUNT (AKER) 8.5 K/ L 3.5-10.5 (test code = 775) RED BLOOD CELL COUNT (AKER) 2.77 M/ L 4.63-6.08 L (test code [...] PERCENT (BEAKER) (test code = 2801) POCT-GLUCOSE [id number] 08:19:00 Test Item Value Reference Range Interpretation Comments POC-GLUCOSE METER 117 mg/dL 70-[address] [facility] 67[address] ([facility]) (test code = [place] 1538) [address] POCT-GLUCOSE [id number] 08:19:00 Test Item Value Reference Range Interpretation Comments POC-GLUCOSE METER 141 mg/dL 70-[address] [facility] 6720 ([facility]) (test code = [place] 1538) [address] RAD, CHEST, 1 VIEW, NON [id number] 07:34:00Reason for exam:->ETT, CHEST TUBES, PA CATHETERShould [...] MDReport Verified Date/Time: 08/21/2017 07:34:55 Reading Location: [address] Consult Reading Room VANCOMYCIN LEVEL, [id number] 05:27:00 Test Item Value Reference Range Interpretation Comments VANCOMYCIN RANDOM (BEAKER) (test 6.1 ug/mL code = 523) Reference Range: No NormalsPlease draw 30 minutes prior to vancomycin due time. Do not administer ifvancomycin trough is >20 mcg/mL. Thank you!BLOOD GAS, [id number] 05:23:00 Test Item Value Reference Range Interpretation [...] (BEAKER) (test code = 1819) 40.0 % [id number] 05:18:00 Test Item Value Reference Range Interpretation Comments PHOSPHORUS (BEAKER) (test code = 3.0 mg/dL 2.3-4.7 604) [id number] 05:18:00 Test Item Value Reference Range Interpretation Comments MAGNESIUM (BEAKER) (test code = 2.0 mg/dL 1.6-2.6 627) BASIC METABOLIC [id number] 05:18:00 Test Item Value Reference Range Interpretation [...] DIALYSIS PATIEN TS. LACTIC ACID, ARTERIAL, WHOLE [id number] 04:55:00 Test Item Value Reference Range Interpretation Comments LACTATE BLOOD ARTERIAL (2) 0.9 mmol/L 0.5-2.2 (BEAKER) (test code = 2874) Effective 06/11/2015: Units/Reference Range ChangeNew: 0.5-2.2 mmol/L Previous: 5-20 mg/dLOXYGEN SATURATION, [id number] 04:42:00 Test Item Value Reference Range Interpretation Comments O2 SATURATION (MEASURED) ([facility]) 66.0 % (test code = 1455) POCT-GLUCOSE [id number] 03:44:00 Test Item Value Reference Range Interpretation Comments POC-GLUCOSE METER 161 mg/dL 70-110 H TESTED AT [place] [address] ([facility]) (test code = [place] 1538) [address] POCT-GLUCOSE [id number] 02:15:00 Test Item Value Reference Range Interpretation Comments POC-GLUCOSE METER 172 mg/dL 70-110 H TESTED AT [place] [address] ([facility]) (test code = [facility] [place] 1538) [address] POCT-GLUCOSE [id number] 02:15:00 Test Item Value Reference Range Interpretation Comments POC-GLUCOSE METER 180 mg/dL 70-110 H TESTED AT [place] [address] ([facility]) (test code = [facility] [place] 1538) [address] POCT-GLUCOSE [id number] 02:15:00 Test Item Value Reference Range Interpretation Comments POC-GLUCOSE METER 176 mg/dL 70-110 H TESTED AT [place] [address] ([facility]) (test code = [facility] [place] 1538) [address] POCT-GLUCOSE [id number] 02:15:00 Test Item Value Reference Range Interpretation Comments POC-GLUCOSE METER 203 mg/dL 70-110 H TESTED AT [place] [address] ([facility]) (test code = [facility] [place] 1538) [address] POCT-GLUCOSE [id number] 02:15:00 Test Item Value Reference Range Interpretation Comments POC-GLUCOSE METER 174 mg/dL 70-110 H TESTED AT [place] [address] ([facility]) (test code = [facility] [place] 1538) [address] CALCIUM, [id number] 00:34:00 Test Item Value Reference Range Interpretation Comments CALCIUM IONIZED ([facility]) (test 1.09 mmol/L 1.12-1.27 L code = 698) PH, BLOOD ([facility]) (test code = 7.40 1810) Check serum Ionized Calcium level after 4 hours after IV Calcium replacement. POCT-GLUCOSE [id number] 23:10:00 Test Item Value Reference Range Interpretation Comments POC-GLUCOSE METER 190 mg/dL 70-110 H TESTED AT [place] [address] (BEAKER) (test code = [place] 1538) [address] POCT-GLUCOSE [id number] 23:10:00 Test Item Value Reference Range Interpretation Comments POC-GLUCOSE METER 106 mg/dL 70-110 TESTED AT [place] [address] (BEAKER) (test code = [place] 1538) [address] POCT-GLUCOSE [id number] 23:10:00 Test Item Value Reference Range Interpretation Comments POC-GLUCOSE METER 155 mg/dL 70-110 H TESTED AT [place] [address] (BEAKER) (test code = [place] [facility] 1538) [address] [id number] 22:00:00 Test Item Value Reference Range Interpretation Comments MAGNESIUM (BEAKER) (test code = 2.0 mg/dL 1.6-2.6 627) BLOOD GAS, [id number] 21:45:00 Test Item Value Reference Range Interpretation [...] 1819) 40.0 % RAD, ABDOMEN/KUB, 1 VIEW [id number] 21:38:00Reason for exam:->corpak placementFINAL REPORT RAD, ABDOMEN/KUB, [...] MDReport Verified Date/Time: 08/20/2017 21:38:34 Reading Location: [address] Transitional Reading Room CALCIUM, [id number] 18:48:00 Test Item Value Reference Range Interpretation Comments CALCIUM IONIZED (BEAKER) (test 1.08 mmol/L 1.12-1.27 L code = 698) PH, BLOOD (BEAKER) (test code = 7.48 1810) BASIC METABOLIC [id number] 18:14:00 Test Item Value Reference Range Interpretation [...] DIALYSIS PATIEN TS. LACTIC ACID, VENOUS, WHOLE [id number] 18:07:00 Test Item Value Reference Range Interpretation Comments LACTATE BLOOD VENOUS (2) (BEAKER) 0.7 mmol/L 0.5-2.2 (test code = 2872) Effective 06/11/2015: Units/Reference Range ChangeNew: 0.5-2.2 mmol/L Previous: 5-20 mg/dLCBC W/PLT COUNT & AUTO [id number] 17:37:00 Test Item Value Reference Range Interpretation [...] 0-0 (test code = 413) BLOOD GAS, [id number] 17:06:00 Test Item Value Reference Range Interpretation [...] (BEAKER) (test code = 1819) 40.0 % [id number] 15:08:00 Test Item Value Reference Range Interpretation Comments POTASSIUM (BEAKER) (test code = 4.0 meq/L 3.5-5.1 379) Check Serum Potassium level 2 hours after oral potassium replacement completed or 30 min after intravenous potassium replacement.[id number] 15:08:00 Test Item Value Reference Range Interpretation Comments MAGNESIUM (BEAKER) (test code = 1.9 mg/dL 1.6-2.6 627) Check Serum Potassium level 2 hours after oral potassium replacement completed or 30 min after intravenous potassium replacement.CALCIUM, [id number] 14:56:00 Test Item Value Reference Range Interpretation Comments CALCIUM IONIZED (BEAKER) (test 1.07 mmol/L 1.12-1.27 L code = 698) PH, BLOOD (BEAKER) (test code = 7.43 1630) Check serum Ionized Calcium level after 4 hours after IV Calcium replacement. RAD, ABDOMEN/KUB, 1 VIEW [id number] 12:00:00Reason for exam:->corpak placementShould this be performed [...] Armentaort Verified Date/Time: 08/20/2017 12:00:17 Reading Location: [address] Consult Reading Room POCT-GLUCOSE [id number] 11:57:00 Test Item Value Reference Range Interpretation Comments POC-GLUCOSE METER 186 mg/dL 70-[address] [facility] 67[address] ([facility]) (test code = [place] 1538) [address] OXYGEN SATURATION, [id number] 11:00:00 Test Item Value Reference Range Interpretation Comments O2 SATURATION (MEASURED) (BEAKER) 67.6 % (test code = 1455) CBC W/PLT COUNT & AUTO [id number] 10:47:00 Test Item Value Reference Range Interpretation [...] User comments: Slide comments:LACTIC ACID, ARTERIAL, WHOLE [id number] 09:18:00 Test Item Value Reference Range Interpretation Comments LACTATE BLOOD ARTERIAL (2) 1.0 mmol/L 0.5-2.2 (BEAKER) (test code = 2874) Effective 06/11/2015: Units/Reference Range ChangeNew: 0.5-2.2 mmol/L Previous: 5-20 mg/dLPOCT-GLUCOSE [id number] 09:15:00 Test Item Value Reference Range Interpretation Comments POC-GLUCOSE METER 220 mg/dL 70-[address] [facility] 6720 (BEAKER) (test code = [place] 1538) [address] POCT-GLUCOSE [id number] 09:15:00 Test Item Value Reference Range Interpretation Comments POC-GLUCOSE METER 203 mg/dL 70-[address] [facility] 6720 (BEAKER) (test code = [place] 1538) 114[address] POCT-GLUCOSE [id number] 09:15:00 Test Item Value Reference Range Interpretation Comments POC-GLUCOSE METER 35 mg/dL 70-110 LL TESTED AT [place] [address] ([facility]) (test code = [place] [address] 1538) POCT-GLUCOSE [id number] 09:15:00 Test Item Value Reference Range Interpretation Comments POC-GLUCOSE METER 110 mg/dL 70-110 TESTED AT [place] [address] ([facility]) (test code = [place] [facility] 1538) [address] POCT-GLUCOSE [id number] 09:15:00 Test Item Value Reference Range Interpretation Comments POC-GLUCOSE METER 118 mg/dL 70-110 H TESTED AT [place] [address] ([facility]) (test code = [facility] [place] [facility] 1538) [id number] POCT-GLUCOSE [id number] 09:15:00 Test Item Value Reference Range Interpretation Comments POC-GLUCOSE METER 126 mg/dL 70-110 H TESTED AT [place] [address] ([facility]) (test code = [facility] [place] [facility] 1538) [address] RAD, CHEST, 1 VIEW, NON [id number] 07:52:00Reason for exam:->ETT, CHEST TUBES, PA CATHETERShould this be performed at the bedside?->YesFINAL REPORT Chest one view compared to August 19 Discussion: Interstitial congestion is similar. ET tube and left IJ line again noted. Left costophrenic angle excluded from the image. No gross effusion or pneumothorax. No visible pulmonary artery access. Signed: Vandana Todd Verified Date/Time: 08/20/2017 07:52:29 Reading Location: [address] Reading Room CT, BRAIN, WITHOUT [id number] 05:11:00FINAL REPORT CT, BRAIN, WITHOUT CONTRAST INDICATION: [...] MDReport Verified Date/Time: 08/20/2017 05:11:47 Reading Location: [address] Transitional Reading Room OXYGEN SATURATION, [id number] 05:10:00 Test Item Value Reference Range Interpretation Comments O2 SATURATION (MEASURED) (BEAKER) 65.8 % (test code = 1455) BLOOD GAS, [id number] 04:57:00 Test Item Value Reference Range Interpretation [...] (BEAKER) (test code = 1819) 40.0 % [id number] 04:49:00 Test Item Value Reference Range Interpretation Comments PHOSPHORUS (BEAKER) (test code = 3.9 mg/dL 2.3-4.7 604) [id number] 04:49:00 Test Item Value Reference Range Interpretation Comments MAGNESIUM (BEAKER) (test code = 2.1 mg/dL 1.6-2.6 627) BASIC METABOLIC [id number] 04:49:00 Test Item Value Reference Range Interpretation [...] 697) EGFR (BEAKER) (test 86 mL/min/1.73 ESTIMA DVAID GFR IS code = 1092) sq m NOT ACCURATE CREATININE CLEARANCE IN PREDICTING GLOMERULAR FILTRATION RATE . ESTIMATED GFR I S NOT APPLICABLE FOR DIALYSIS PATIEN TS. BLOOD GAS, [id number] 01:31:00 Test Item Value Reference Range Interpretation [...] 1819) 40.0 % LACTIC ACID, ARTERIAL, WHOLE [id number] 00:02:00 Test Item Value Reference Range Interpretation Comments LACTATE BLOOD ARTERIAL (2) 1.2 mmol/L 0.5-2.2 (BEAKER) (test code = 2874) Effective 06/11/2015: Units/Reference Range ChangeNew: 0.5-2.2 mmol/L Previous: 5-20 mg/[id number] 00:01:00 Test Item Value Reference Range Interpretation Comments MAGNESIUM (BEAKER) (test code = 1.7 mg/dL 1.6-2.6 627) SODIUM NA-STAT [id number] 23:24:00 Test Item Value Reference Range Interpretation Comments SODIUM (BEAKER) (test code = 381) 141 meq/L 135-148 POTASSIUM-STAT [id number] 23:24:00 Test Item Value Reference Range Interpretation Comments POTASSIUM (BEAKER) (test code = 5.3 meq/L 3.6-5.5 379) CALCIUM, [id number] 23:24:00 Test Item Value Reference Range Interpretation Comments CALCIUM IONIZED (BEAKER) (test 1.20 mmol/L 1.12-1.27 code = 698) PH, BLOOD (BEAKER) (test code = 7.39 1810) Check serum Ionized Calcium level after 4 hours after IV Calcium replacement. BLOOD GAS, [id number] 23:24:00 Test Item Value Reference Range Interpretation [...] (test code = 1819) 60.0 % GLUCOSE-STAT [id number] 23:24:00 Test Item Value Reference Range Interpretation Comments GLUCOSE RANDOM (BEAKER) (test code 204 mg/dL 70-110 H = 652) HGB/HCT (H&H) - STAT [id number] 23:24:00 Test Item Value Reference Range Interpretation Comments HEMOGLOBIN (BEAKER) (test code = 10.4 g/dL 13.0-16.8 L 410) HEMATOCRIT (BEAKER) (test code = 31.0 % 40.0-50.0 L 411) OXYGEN SATURATION, [id number] 23:23:00 Test Item Value Reference Range Interpretation Comments O2 SATURATION (MEASURED) (BEAKER) 68.4 % (test code = 1455) LACTIC ACID, ARTERIAL, WHOLE [id number] 22:05:00 Test Item Value Reference Range Interpretation Comments LACTATE BLOOD ARTERIAL (2) 1.4 mmol/L 0.5-2.2 (BEAKER) (test code = 2874) Effective 06/11/2015: Units/Reference Range ChangeNew: 0.5-2.2 mmol/L Previous: 5-20 mg/[id number] 22:03:00 Test Item Value Reference Range Interpretation Comments MAGNESIUM (BEAKER) (test code = 1.8 mg/dL 1.6-2.6 627) CALCIUM, [id number] 21:46:00 Test Item Value Reference Range Interpretation Comments CALCIUM IONIZED (BEAKER) (test 1.44 mmol/L 1.12-1.27 H code = 698) PH, BLOOD (BEAKER) (test code = 7.37 1810) BLOOD GAS, [id number] 21:44:00 Test Item Value Reference Range Interpretation [...] (test code = 1819) 50.0 % GLUCOSE-STAT [id number] 21:44:00 Test Item Value Reference Range Interpretation Comments GLUCOSE RANDOM (BEAKER) (test code 197 mg/dL 70-110 H = 652) HGB/HCT (H&H) - STAT [id number] 21:44:00 Test Item Value Reference Range Interpretation Comments HEMOGLOBIN (BEAKER) (test code = 11.3 g/dL 13.0-16.8 L 410) HEMATOCRIT (BEAKER) (test code = 33.0 % 40.0-50.0 L 411) SODIUM NA-STAT [id number] 21:43:00 Test Item Value Reference Range Interpretation Comments SODIUM (BEAKER) (test code = 381) 141 meq/L 135-148 POTASSIUM-STAT [id number] 21:43:00 Test Item Value Reference Range Interpretation Comments POTASSIUM (BEAKER) (test code = 4.6 meq/L 3.6-5.5 379) RAD, CHEST, 1 VIEW, NON [id number] 20:58:00Reason for exam:- >intubationShould this be performed at the bedside?->YesFINAL REPORT Chest, portable AP view History: Intubation Comparison: Earlier the same day at 9:11 AM IMPRESSION: The tip of the endotracheal tube is approximately 4.7 cm above the waqas. The heart is stably enlarged. Patient status post median sternotomy. There is been intervalremoval of the Freedom-Marya catheter. Left basilar chest tubes in place. There is a trace left apical pn eumothorax. Interval placement of a left IJ central venous catheter with the distal catheter tip at the innominate SVC junction. Bibasilar atelectasis persists. Signed: Emanuel Wilson MDReplake regional health system Verified Date/Time: 08/19/2017 20:58:35 Reading Location: [facility] [id number] Consult Reading Room OXYGEN SATURATION, [id number] 19:16:00 Test Item Value Reference Range Interpretation Comments O2 SATURATION (MEASURED) (BEAKER) 67.8 % (test code = 1455) BLOOD GAS, [id number] 19:07:00 Test Item Value Reference Range Interpretation [...] (test code = 1819) 100.0 % GLUCOSE-STAT [id number] 19:07:00 Test Item Value Reference Range Interpretation Comments GLUCOSE RANDOM (BEAKER) (test code 144 mg/dL 70-110 H = 652) POCT-GLUCOSE [id number] 17:11:00 Test Item Value Reference Range Interpretation Comments POC-GLUCOSE METER 108 mg/dL 70-[address] [facility] [address] (BEAKER) (test code = [place] 1538) [address] BLOOD GAS, [id number] 16:53:00 Test Item Value Reference Range Interpretation [...] code = 1819) 100.0 % BLOOD GAS, [id number] 14:09:00 Test Item Value Reference Range Interpretation [...] (test code = 1819) 44.0 % TROPONIN [id number] 12:55:00 Test Item Value Reference Range Interpretation Comments TROPONIN I (BEAKER) (test code = 2.27 ng/mL 0.00-0.03 397) Troponin I (TnI) levels [...] acute neurological disease, and persistent tachyarrhythmia.COMPREHENSIVE METABOLIC [id number] 12:20:00 Test Item Value Reference Range Interpretation [...] S NOT APPLICABLE FOR DIALYSIS PATIEN TS. [id number] 12:19:00 Test Item Value Reference Range Interpretation Comments MAGNESIUM (BEAKER) (test code = 1.9 mg/dL 1.6-2.6 627) BASIC METABOLIC [id number] 12:19:00 Test Item Value Reference Range Interpretation [...] DIALYSIS PATIEN TS. LACTIC ACID, ARTERIAL, WHOLE [id number] 12:16:00 Test Item Value Reference Range Interpretation Comments LACTATE BLOOD ARTERIAL (2) 3.1 mmol/L 0.5-2.2 H (BEAKER) (test code = 2874) Effective 06/11/2015: Units/Reference Range ChangeNew: 0.5-2.2 mmol/L Previous: 5-20 mg/dLCALCIUM, [id number] 12:04:00 Test Item Value Reference Range Interpretation [...] = 413) RAD, CHEST, 1 VIEW, NON [id number] 09:55:00Reason for exam:->ETT, CHEST TUBES, PA CATHETERShould this be performed at the bedside?->YesFINAL REPORT Two frontal chest images compared to August 19, 2017 Discussion: Support tubes and right IJ pulmonary catheter in place. Chest tubes are noted. Trace left apical pneumothorax. Minimal left base atelectasis. Signed: Vandana Todd MDReport Verified Date/Time: 08/19/201709:55:44 Reading Location: [facility] Radiology Reading Room LACTIC ACID, ARTERIAL, WHOLE BLOOD 2017-08-19 07:50:00 Test Item Value Reference Range Interpretation Comments LACTATE BLOOD ARTERIAL (2) 3.2 mmol/L 0.5-2.2 H (BEAKER) (test code = 2874) Effective 06/11/2015: Units/Reference Range ChangeNew: 0.5-2.2 mmol/L Previous: 5-20 mg/dLBLOOD GAS, [id number] 07:31:00 Test Item Value Reference Range Interpretation [...] 50.0 % CREATINE KINASE (CK), TOTAL AND [id number] 07:08:00 Test Item Value Reference Range Interpretation Comments CREATINE KINASE TOTAL (BEAKER) 282 U/L 29-200 H (test code = 380) CREATINE KINASE-MB (BEAKER) (test 11.5 ng/mL 0.0-6.6 H code = 750) CREATINE KINASE-MB INDEX (BEAKER) 4.1 % (test code = 395) CK-MB Reference Range:<6.7 Normal6.7-10.0 Borderline>10.0 AbnormalTROPONIN [id number] 07:04:00 Test Item Value Reference Range Interpretation [...] acidosis, acute neurological disease, and persistent tachyarrhythmia.POCT-GLUCOSE [id number] 06:14:00 Test Item Value Reference Range Interpretation Comments POC-GLUCOSE METER 166 mg/dL 70-110 H TESTED AT [place] [address] ([facility]) (test code = [place] 1538) [address] POCT-GLUCOSE [id number] 06:14:00 Test Item Value Reference Range Interpretation Comments POC-GLUCOSE METER 196 mg/dL 70-110 H TESTED AT [place] [address] ([facility]) (test code = [place] 1538) [address] POCT-GLUCOSE [id number] 06:14:00 Test Item Value Reference Range Interpretation Comments POC-GLUCOSE METER 209 mg/dL 70-110 H TESTED AT [place] [address] ([facility]) (test code = [place] 15[address]) [address] POCT-GLUCOSE [id number] 06:14:00 Test Item Value Reference Range Interpretation Comments POC-GLUCOSE METER 259 mg/dL 70-110 H TESTED AT [place] [address] ([facility]) (test code = [place] [address]) [address] POCT-GLUCOSE [id number] 06:14:00 Test Item Value Reference Range Interpretation Comments POC-GLUCOSE METER 304 mg/dL 70-110 H TESTED AT [place] [address] ([facility]) (test code = [place] 15[address]) [address] POCT-GLUCOSE [id number] 06:14:00 Test Item Value Reference Range Interpretation Comments POC-GLUCOSE METER 343 mg/dL 70-110 H TESTED AT [place] [address] ([facility]) (test code = [place] [address]) [address] OXYGEN SATURATION, [id number] 05:39:00 Test Item Value Reference Range Interpretation Comments O2 SATURATION (MEASURED) (BEAKER) 73.8 % (test code = 1455) BLOOD GAS, [id number] 05:03:00 Test Item Value Reference Range Interpretation Comments PH ARTERIAL (BEAKER) (test code = 7.31 7.35-7.45 L 383) PCO2 ARTERIAL (BEAKER) (test code 46 mmHg 35-45 H = 384) PO2 ARTERIAL (BEAKER) (test code 108 mmHg 80-90 H = 385) O2 SATURATION ARTERIAL (BEAKER) 97.5 % 96.0-97.0 H (test code = 386) HCO3 ARTERIAL (BEAKER) (test code 23 mmol/L 21-29 = 388) BASE EXCESS ARTERIAL (BEAKER) -3.7 mmol/L -2.0-3.0 L (test code = 387) PATIENT TEMPERATURE (BEAKER) 37.0 C (test code = 1818) FIO2 (BEAKER) (test code = 1819) 50.0 % GLUCOSE-STAT [id number] 05:03:00 Test Item Value Reference Range Interpretation Comments GLUCOSE RANDOM (BEAKER) (test code 175 mg/dL 70-110 H = 652) HGB/HCT (H&H) - STAT [id number] 05:03:00 Test Item Value Reference Range Interpretation Comments HEMOGLOBIN (BEAKER) (test code = 11.9 g/dL 13.0-16.8 L 410) HEMATOCRIT (BEAKER) (test code = 35.0 % 40.0-50.0 L 411) CALCIUM, [id number] 05:02:00 Test Item Value Reference Range Interpretation Comments CALCIUM IONIZED (BEAKER) (test 1.21 mmol/L 1.12-1.27 code = 698) PH, BLOOD (BEAKER) (test code = 7.31 1810) Check serum Ionized Calcium level after 4 hours after IV Calcium replacement. SODIUM NA-STAT [id number] 05:01:00 Test Item Value Reference Range Interpretation Comments SODIUM (BEAKER) (test code = 381) 142 meq/L 135-148 POTASSIUM-STAT [id number] 05:01:00 Test Item Value Reference Range Interpretation Comments POTASSIUM (BEAKER) (test code = 3.6 meq/L 3.6-5.5 379) [id number] 04:59:00 Test Item Value Reference Range Interpretation Comments PHOSPHORUS (BEAKER) (test code = 2.2 mg/dL 2.3-4.7 L 604) [id number] 04:59:00 Test Item Value Reference Range Interpretation Comments MAGNESIUM (BEAKER) (test code = 2.0 mg/dL 1.6-2.6 627) BASIC METABOLIC [id number] 04:59:00 Test Item Value Reference Range Interpretation [...] DIALYSIS PATIEN TS. LACTIC ACID, ARTERIAL, WHOLE [id number] 04:53:00 Test Item Value Reference Range Interpretation Comments LACTATE BLOOD ARTERIAL (2) 7.3 mmol/L 0.5-2.2 H (BEAKER) (test code = 2874) Effective 06/11/2015: Units/Reference Range ChangeNew: 0.5-2.2 mmol/L Previous: 5-20 mg/dLCBC W/PLT COUNT & AUTO [id number] 04:52:00 Test Item Value Reference Range Interpretation [...] 0-1 PERCENT (BEAKER) (test code = 2801) [id number] 04:50:00 Test Item Value Reference Range Interpretation Comments PARTIAL THROMBOPLASTIN TIME 35.7 seconds 22.5-36.0 (BEAKER) (test code = 760) PROTHROMBIN [id number] 04:49:00 Test Item Value Reference Range Interpretation [...] ChangeNew: 0.5-2.2 mmol/L Previous: 5-20 mg/dLBLOOD GAS, [id number] 03:33:00 Test Item Value Reference Range Interpretation [...] (test code = 1819) 50.0 % CALCIUM, [id number] 03:32:00 Test Item Value Reference Range Interpretation Comments CALCIUM IONIZED (BEAKER) (test 1.17 mmol/L 1.12-1.27 code = 698) PH, BLOOD (BEAKER) (test code = 7.37 1810) LACTIC ACID, ARTERIAL, WHOLE [id number] 01:43:00 Test Item Value Reference Range Interpretation Comments LACTATE BLOOD ARTERIAL (2) 9.2 mmol/L 0.5-2.2 H (BEAKER) (test code = 2874) Effective 06/11/2015: Units/Reference Range ChangeNew: 0.5-2.2 mmol/L Previous: 5-20 mg/[id number] 01:41:00 Test Item Value Reference Range Interpretation Comments MAGNESIUM (BEAKER) (test code = 2.3 mg/dL 1.6-2.6 627) BLOOD GAS, [id number] 01:31:00 Test Item Value Reference Range Interpretation [...] (test code = 1819) 50.0 % POTASSIUM-STAT [id number] 01:31:00 Test Item Value Reference Range Interpretation Comments POTASSIUM (BEAKER) (test code = 3.3 meq/L 3.6-5.5 L 379) GLUCOSE-STAT [id number] 01:31:00 Test Item Value Reference Range Interpretation Comments GLUCOSE RANDOM (BEAKER) (test code 236 mg/dL 70-110 H = 652) HGB/HCT (H&H) - STAT [id number] 01:31:00 Test Item Value Reference Range Interpretation Comments HEMOGLOBIN (BEAKER) (test code = 11.1 g/dL 13.0-16.8 L 410) HEMATOCRIT (BEAKER) (test code = 33.0 % 40.0-50.0 L 411) OXYGEN SATURATION, [id number] 01:28:00 Test Item Value Reference Range Interpretation Comments O2 SATURATION (MEASURED) (BEAKER) 76.9 % (test code = 1455) SODIUM NA-STAT [id number] 01:28:00 Test Item Value Reference Range Interpretation Comments SODIUM (BEAKER) (test code = 381) 144 meq/L 135-148 RAD, CHEST, 1 VIEW, NON [id number] 00:23:00Reason for exam:->s/p PA catheter placementFINAL REPORT RAD, CHEST, 1 VIEW, NON DEPT INDICATION: s/p PA catheter placement COMPARISON: Prior day's exam FINDINGS: Portable frontal view of the chest. IMPRESSION: Support Lines: Interval placement of a right IJ Freedom-Marya catheter with tip overlying the main pulmonary [...] Stable surgical changes.Additional findings: None. Signed: Audrey Vasquez Verified Date/Time: 08/19/2017 00:23:43 Reading Location: [address] Reading Room LACTIC ACID, ARTERIAL, WHOLE [id number] 23:40:00 Test Item Value Reference Range Interpretation Comments LACTATE BLOOD ARTERIAL (2) 8.7 mmol/L 0.5-2.2 H (BEAKER) (test code = 2874) Effective 06/11/2015: Units/Reference Range ChangeNew: 0.5-2.2 mmol/L Previous: 5-20 mg/dLBLOOD GAS, [id number] 23:20:00 Test Item Value Reference Range Interpretation [...] (test code = 1819) 60.0 % POTASSIUM-STAT [id number] 23:20:00 Test Item Value Reference Range Interpretation Comments POTASSIUM (BEAKER) (test code = 3.2 meq/L 3.6-5.5 L 379) GLUCOSE-STAT [id number] 23:20:00 Test Item Value Reference Range Interpretation Comments GLUCOSE RANDOM (BEAKER) (test code 282 mg/dL 70-110 H = 652) HGB/HCT (H&H) - STAT [id number] 23:20:00 Test Item Value Reference Range Interpretation Comments HEMOGLOBIN (BEAKER) (test code = 10.7 g/dL 13.0-16.8 L 410) HEMATOCRIT (BEAKER) (test code = 31.0 % 40.0-50.0 L 411) CALCIUM, [id number] 23:20:00 Test Item Value Reference Range Interpretation Comments CALCIUM IONIZED (BEAKER) (test 1.10 mmol/L 1.12-1.27 L code = 698) PH, BLOOD (BEAKER) (test code = 7.36 1810) Check serum Ionized Calcium level after 4 hours after IV Calcium replacement. SODIUM NA-STAT [id number] 23:19:00 Test Item Value Reference Range Interpretation Comments SODIUM (BEAKER) (test code = 381) 144 meq/L 135-148 OXYGEN SATURATION, [id number] 23:19:00 Test Item Value Reference Range Interpretation Comments O2 SATURATION (MEASURED) (BEAKER) 79.6 % (test code = 1455) BLOOD GAS, [id number] 22:12:00 Test Item Value Reference Range Interpretation [...] 60.0 % RAD, CHEST, 1 VIEW, NON [id number] 20:42:00Reason for exam:->s/p ACBFINAL REPORT Chest, 1 [...] Vasquez Verified Date/Time: 08/18/2017 20:42:09 Reading Location: [address] Reading Room BLOOD GAS, ARTERIAL 2017-08-18 [...] 37.0 C (test code = 1818) GLUCOSE-STAT [id number] 20:27:00 Test Item Value Reference Range Interpretation Comments GLUCOSE RANDOM (BEAKER) (test code 319 mg/dL 70-110 H = 652) HGB/HCT (H&H) - STAT [id number] 20:27:00 Test Item Value Reference Range Interpretation Comments HEMOGLOBIN (BEAKER) (test code = 12.2 g/dL 13.0-16.8 L 410) HEMATOCRIT (BEAKER) (test code = 36.0 % 40.0-50.0 L 411) CALCIUM, [id number] 20:26:00 Test Item Value Reference Range Interpretation Comments CALCIUM IONIZED (BEAKER) (test 1.23 mmol/L 1.12-1.27 code = 698) PH, BLOOD (BEAKER) (test code = 7.24 1810) SODIUM NA-STAT [id number] 20:26:00 Test Item Value Reference Range Interpretation Comments SODIUM (BEAKER) (test code = 381) 142 meq/L 135-148 POTASSIUM-STAT [id number] 20:26:00 Test Item Value Reference Range Interpretation Comments POTASSIUM (BEAKER) (test code = 3.6 meq/L 3.6-5.5 379) CBC W/PLT COUNT & AUTO [id number] 20:13:00 Test Item Value Reference Range Interpretation [...] = 3438) Received comment: User comments: Slide comments:[id number] 20:06:00 Test Item Value Reference Range Interpretation Comments MAGNESIUM (BEAKER) (test code = 2.4 mg/dL 1.6-2.6 627) BASIC METABOLIC [id number] 20:06:00 Test Item Value Reference Range Interpretation [...] DIALYSIS PATIEN TS. LACTIC ACID, ARTERIAL, WHOLE [id number] 20:02:00 Test Item Value Reference Range Interpretation Comments LACTATE BLOOD ARTERIAL (2) 4.9 mmol/L 0.5-2.2 H (BEAKER) (test code = 2874) Effective 06/11/2015: Units/Reference Range ChangeNew: 0.5-2.2 mmol/L Previous: 5-20 mg/dLPROTHROMBIN [id number] 19:51:00 Test Item Value Reference Range Interpretation Comments PROTIME (BEAKER) (test code = 16.4 seconds 11.7-14.7 H 759) INR (BEAKER) (test code = 370) 1.3 <=5.9 RECOMMENDED COUMADIN/WARFARIN INR THERAPY RANGESSTANDARD DOSE: 2.0 - 3.0 Includes: PROPHYLAXIS forvenous thrombosis, systemic embolization; TREATMENT for venous thrombosis and/or pulmonary embolus.HIGH RISK: Target INR is 2.5-3.5 for patients with mechanical heart valves.[id number] 19:51:00 Test Item Value Reference Range Interpretation Comments FIBRINOGEN LEVEL (BEAKER) (test 331 mg/dl 225-434 code = 658) [id number] 19:51:00 Test Item Value Reference Range Interpretation Comments PARTIAL THROMBOPLASTIN TIME 31.1 seconds 22.5-36.0 (BEAKER) (test code = 760) OXYGEN SATURATION, [id number] 19:44:00 Test Item Value Reference Range Interpretation Comments O2 SATURATION (MEASURED) (BEAKER) 76.2 % (test code = 1455) BLOOD GAS, [id number] 19:43:00 Test Item Value Reference Range Interpretation [...] (BEAKER) (test code = 1819) 60.0 % [id number] 19:07:00 Test Item Value Reference Range Interpretation Comments ACTIVATED CLOTTING TIME 120 sec TEST ED AT [place] [address] ([facility]) (test code = [place] [address]) [address] [id number] 19:07:00 Test Item Value Reference Range Interpretation Comments ACTIVATED CLOTTING TIME 439 sec TEST ED AT [place] [address] ([facility]) (test code = [place] [address]) [address] [id number] 19:07:00 Test Item Value Reference Range Interpretation Comments ACTIVATED CLOTTING TIME 433 sec TEST ED AT [place] [address] ([facility]) (test code = [place] [address]) [address] [id number] 19:07:00 Test Item Value Reference Range Interpretation Comments ACTIVATED CLOTTING TIME 378 sec TEST ED AT [place] [address] ([facility]) (test code = [place] [address]) [address] [id number] 19:07:00 Test Item Value Reference Range Interpretation Comments ACTIVATED CLOTTING TIME 422 sec TEST ED AT [place] [address] ([facility]) (test code = [place] [address]) [address] THROMBOELASTOGRAPH (TEG)[id number] 18:59:00 Test Item Value Reference Range Interpretation Comments TEG ACTIVATED CLOTTING TIME 4.3 minutes 4.0-7.0 (AKER) (test code = 1407) TEG FIBRINOGEN ACTIVITY (BEAKER) 72.3 degrees 61.0-73.0 (test code = 1408) TEG PLT. AGGREGATION (BEAKER) 61.4 MM 55.0-65.0 (test code = 1409) TGH ACTIVATED CLOTTING TIME 4.6 minutes 4.0-7.0 (BEAKER) (test code = 1411) TGH FIBRINOGEN ACTIVITY (BEAKER) 74.0 degrees 61.0-73.0 H (test code = 1412) TGH PLT. AGGREGATION (BEAKER) 68.0 MM 55.0-65.0 H (test code = 1413) PROTHROMBIN [id number] 18:36:00 Test Item Value Reference Range Interpretation Comments PROTIME (BEAKER) (test code = 18.2 seconds 11.7-14.7 H 759) INR (BEAKER) (test code = 370) 1.5 <=5.9 RECOMMENDED COUMADIN/WARFARIN INR THERAPY RANGESSTANDARD DOSE: 2.0 - 3.0 Includes: PROPHYLAXIS forvenous thrombosis, systemic embolization; TREATMENT for venous thrombosis and/or pulmonary embolus.HIGH RISK: Target INR is 2.5-3.5 for patients with mechanical heart valves.[id number] 18:36:00 Test Item Value Reference Range Interpretation Comments FIBRINOGEN LEVEL (BEAKER) (test 276 mg/dl 225-434 code = 658) [id number] 18:36:00 Test Item Value Reference Range Interpretation Comments PARTIAL THROMBOPLASTIN TIME 32.8 seconds 22.5-36.0 (BEAKER) (test code = 760) PLATELET [id number] 18:29:00 Test Item Value Reference Range Interpretation Comments PLATELET COUNT (BEAKER) (test 178 K/CU MM 150-450 code = 756) BLOOD GAS, [id number] 18:14:00 Test Item Value Reference Range Interpretation [...] (test code = 1819) 100.0 % GLUCOSE-STAT [id number] 18:14:00 Test Item Value Reference Range Interpretation Comments GLUCOSE RANDOM (BEAKER) (test code 330 mg/dL 70-110 H = 652) HGB/HCT (H&H) - STAT [id number] 18:14:00 Test Item Value Reference Range Interpretation Comments HEMOGLOBIN (BEAKER) (test code = 11.1 g/dL 13.0-16.8 L 410) HEMATOCRIT (BEAKER) (test code = 33.0 % 40.0-50.0 L 411) SODIUM NA-STAT [id number] 18:12:00 Test Item Value Reference Range Interpretation Comments SODIUM (BEAKER) (test code = 381) 138 meq/L 135-148 POTASSIUM-STAT [id number] 18:12:00 Test Item Value Reference Range Interpretation Comments POTASSIUM (BEAKER) (test code = 3.7 meq/L 3.6-5.5 379) CALCIUM, [id number] 18:12:00 Test Item Value Reference Range Interpretation Comments CALCIUM IONIZED (BEAKER) (test 1.18 mmol/L 1.12-1.27 code = 698) PH, BLOOD (BEAKER) (test code = 7.24 1810) BLOOD GAS, [id number] 17:05:00 Test Item Value Reference Range Interpretation [...] (test code = 1819) 70.0 % GLUCOSE-STAT [id number] 17:05:00 Test Item Value Reference Range Interpretation Comments GLUCOSE RANDOM (BEAKER) (test code 320 mg/dL 70-110 H = 652) HGB/HCT (H&H) - STAT [id number] 17:05:00 Test Item Value Reference Range Interpretation Comments HEMOGLOBIN (BEAKER) (test code = 10.8 g/dL 13.0-16.8 L 410) HEMATOCRIT (BEAKER) (test code = 32.0 % 40.0-50.0 L 411) SODIUM NA-STAT [id number] 17:04:00 Test Item Value Reference Range Interpretation Comments SODIUM (BEAKER) (test code = 381) 135 meq/L 135-148 POTASSIUM-STAT [id number] 17:04:00 Test Item Value Reference Range Interpretation Comments POTASSIUM (BEAKER) (test code = 5.4 meq/L 3.6-5.5 379) BLOOD GAS, [id number] 16:34:00 Test Item Value Reference Range Interpretation [...] code = 1819) 60.0 % SODIUM NA-STAT [id number] 16:34:00 Test Item Value Reference Range Interpretation Comments SODIUM (BEAKER) (test code = 381) 134 meq/L 135-148 L POTASSIUM-STAT [id number] 16:34:00 Test Item Value Reference Range Interpretation Comments POTASSIUM (BEAKER) (test code = 5.7 meq/L 3.6-5.5 H 379) GLUCOSE-STAT [id number] 16:34:00 Test Item Value Reference Range Interpretation Comments GLUCOSE RANDOM (BEAKER) (test code 266 mg/dL 70-110 H = 652) HGB/HCT (H&H) - STAT [id number] 16:34:00 Test Item Value Reference Range Interpretation Comments HEMOGLOBIN (BEAKER) (test code = 11.5 g/dL 13.0-16.8 L 410) HEMATOCRIT (BEAKER) (test code = 34.0 % 40.0-50.0 L 411) POTASSIUM-STAT [id number] 16:04:00 Test Item Value Reference Range Interpretation Comments POTASSIUM (BEAKER) (test code = 4.4 meq/L 3.6-5.5 379) BLOOD GAS, [id number] 16:04:00 Test Item Value Reference Range Interpretation [...] code = 1819) 60.0 % SODIUM NA-STAT [id number] 16:04:00 Test Item Value Reference Range Interpretation Comments SODIUM (BEAKER) (test code = 381) 134 meq/L 135-148 L GLUCOSE-STAT [id number] 16:04:00 Test Item Value Reference Range Interpretation Comments GLUCOSE RANDOM (BEAKER) (test code 275 mg/dL 70-110 H = 652) HGB/HCT (H&H) - STAT [id number] 16:04:00 Test Item Value Reference Range Interpretation Comments HEMOGLOBIN (BEAKER) (test code = 11.5 g/dL 13.0-16.8 L 410) HEMATOCRIT (BEAKER) (test code = 34.0 % 40.0-50.0 L 411) BLOOD GAS, [id number] 15:18:00 Test Item Value Reference Range Interpretation [...] (test code = 1819) 100.0 % GLUCOSE-STAT [id number] 15:18:00 Test Item Value Reference Range Interpretation Comments GLUCOSE RANDOM (BEAKER) (test code 200 mg/dL 70-110 H = 652) SODIUM NA-STAT [id number] 15:17:00 Test Item Value Reference Range Interpretation Comments SODIUM (BEAKER) (test code = 381) 141 meq/L 135-148 POTASSIUM-STAT [id number] 15:17:00 Test Item Value Reference Range Interpretation Comments POTASSIUM (BEAKER) (test code = 4.6 meq/L 3.6-5.5 379) HGB/HCT (H&H) - STAT [id number] 15:17:00 Test Item Value Reference Range Interpretation Comments HEMOGLOBIN (BEAKER) (test code = 16.6 g/dL 13.0-16.8 410) HEMATOCRIT (BEAKER) (test code = 49.0 % 40.0-50.0 411) POCT-GLUCOSE [id number] 12:49:00 Test Item Value Reference Range Interpretation Comments POC-GLUCOSE METER 208 mg/dL 70-[address] [facility] 67[address] (BEAKER) (test code = [place] 1538) [id number] HEMOGLOBIN [id number] 11:52:00 Test Item Value Reference Range Interpretation Comments HEMOGLOBIN A1C (BEAKER) (test code = 10.8 % 4.3-6.1 H 368) RAD, CHEST, 2 [id number] 10:32:00Reason for exam:->Pre opFINAL REPORT Chest two views Discussion: Heart, lungs, bones, soft tissues unremarkable. No effusion or pneumothorax. Signed: Vandana Todd Verified Date/Time: 08/18/2017 10:32:09 Reading Location: [facility] Radiology Reading Room POCT-GLUCOSE [id number] 08:56:00 Test Item Value Reference Range Interpretation Comments POC-GLUCOSE METER 199 mg/dL 70-[address] [facility] [address] ([facility]) (test code = [place] 1538) [id number] TSH/FREE T4 IF [id number] 05:00:00 Test Item Value Reference Range Interpretation Comments THYROID STIMULATING HORMONE 1.14 uIU/mL 0.35-4.94 (BEAKER) (test code = 772) LIPID [id number] 04:46:00 Test Item Value Reference Range Interpretation Comments TRIGLYCERIDES (BEAKER) (test code = 336 mg/dL 540) CHOLESTEROL (BEAKER) (test code = 215 mg/dL 631) HDL CHOLESTEROL (BEAKER) (test code 28 mg/dL = 976) LDL CHOLESTEROL CALCULATED (AKER) 120 mg/dL (test code = 633) Triglyceride Reference Range: Low Risk <150 Borderline 150-199 High Risk 200-499 Very High Risk >=500Cholesterol Reference Range: Low Risk <200 Borderline 200-239 High Risk >240HDL Cholesterol Reference Range: Low Risk >=60 High Risk <40LDL Cholesterol Reference Range: Optimal <100 Near Optimal 100-129 Borderline 130-159 High 160-189 Very High >=190BASIC METABOLIC [id number] 04:46:00 Test Item Value Reference Range Interpretation [...] PATIEN TS. CBC W/PLT COUNT & AUTO [id number] 04:16:00 Test Item Value Reference Range Interpretation [...] PERCENT (BEAKER) (test code = 2801) TROPONIN [id number] 22:40:00 Test Item Value Reference Range Interpretation [...] failure, acidosis, acute neurological disease, and persistent tachyarrhythmia.[id number] 22:34:00 Test Item Value Reference Range Interpretation Comments MAGNESIUM (BEAKER) (test code = 2.2 mg/dL 1.6-2.6 627) BASIC METABOLIC [id number] 22:34:00 Test Item Value Reference Range Interpretation [...] APPLICABLE FOR DIALYSIS PATIEN TS. HEPATIC FUNCTION [id number] 22:34:00 Test Item Value Reference Range Interpretation [...] = 19 U/L 6-55 347) Specimen slightly lipemicPT/[id number] 22:08:00 Test Item Value Reference Range Interpretation [...] PERCENT (BEAKER) (test code = 2801) POCT-GLUCOSE [id number] 21:20:00 Test Item Value Reference Range Interpretation Comments POC-GLUCOSE METER 235 mg/dL 70-[address] [facility] [address] (BELEM) (test code = [place] 1538) [id number]
[2020-10-17] MEDS ORDERED: NA CHLORIDE 0.9% 2,000 ML ONE (17:27)
--- NOTE | 2020-10-17 17:27 | ER ---
Nurse's Notes [facility] Name: Jersey De Leon Jr Age: 65 yrs Sex: Male : 1955 Arrival Date: 10/17/2020 Time: 16:37 Bed 3 Private MD: Diagnosis: Sepsis;Cardiogenic shock;Pneumonia Presentation: 10/17 16:43 Chief complaint: Spouse and/or significant other states: has been on three abx for iw pneumonia, sees Dr. Ureña, today he got chilled, laid on couch and not moved, temp was 102.5, then up to 104, called Dr. Berry , hx of leukemia , has lost some weight over past month , Sep 10 was COVID +. Coronavirus screen: Client reports previous positive COVID test result. Date of collection: September 10, 2020. Ebola Screen: Patient negative for fever greater than or equal to 101.5 degrees Fahrenheit, and additional compatible Ebola Virus Disease symptoms Patient denies exposure to infectious person. Patient denies travel to an Ebola-affected area in the 21 days before illness onset. No symptoms or risks identified at this time. Initial Sepsis Screen: Does the patient meet any 2 criteria? RR > 20 per min. Systolic BP < 90 mmHg. Risk Assessment: Do you want to hurt yourself or someone else? Patient reports no desire to harm self or others. Onset of symptoms was October 17, 2020. 16:43 Method Of Arrival: Wheelchair iw 16:43 Acuity: RODERICK 2 iw 17:27 Initial Sepsis Screen: Does the patient have a suspected source of infection? Yes: kh1 Other: COVID. Triage Assessment: 17:20 General: Appears LETHARGIC. Behavior is listless, quiet, VERY LETHARGIC. Pain: Noted to kh1 be WEAK AND LETHARGIC. 17:26 Respiratory: Onset: The symptoms/episode began/occurred today, the patient has severe kh1 shortness of breath. Historical: - Allergies: 16:46 Morphine; iw 16:46 Paxil; iw - PMHx: 16:46 CAD; Diabetes - NIDDM; High Cholesterol; Kidney stones; Leukemia; iw - Immunization history:: Client reports having NOT received the Covid vaccine. - Social history:: Smoking status: Patient reports the use of cigarette tobacco products, smokes two packs cigarettes per day. - Family history:: No immediate family members are acutely ill. - Code Status:: DOES NOT WANT TO LIVE ON BREATHING MACHINE. Screenin:23 Abuse screen: Denies threats or abuse. Nutritional screening: Had unintentional weight kh1 loss of 10 pounds or more. Tuberculosis screening: No symptoms or risk factors identified. Fall Risk IV access (20 points). Gait- Weak (10 pts.). Assessment: 17:23 Neuro: Level of Consciousness is lethargic, Oriented to person, Speech WEAK. kh1 Cardiovascular: Rhythm is sinus tachycardia. 17:26 Respiratory: Airway is patent Respiratory effort is even, unlabored. kh1 17:50 Reassessment: Pt moved from ER bed 28 to trauma room 3. jl7 18:00 General: Appears in no apparent distress. uncomfortable, Behavior is cooperative, jl7 restless, lethargic, arousable with repeated verbal stimuli. Pain: Denies pain. Neuro: Level of Consciousness is obeys commands, lethargic, Oriented to person, place, time, situation, Speech slow to answer. Respiratory: Airway is patent Respiratory effort is even, labored, shallow, Respiratory pattern is symmetrical, tachypnea. Derm: Skin is dry, Skin is pale, Skin temperature is warm. 21:25 Reassessment: Tessie () [phone]. ea 21:31 Reassessment: Pily (daughter) [phone], Chanel (daughter) [phone]. bs2 10/18 00:16 Reassessment: Report called to Aletha RN receiving nurse at [facility]. em 00:21 Reassessment: Attempted to call x 2. Attempted to call Chanel unable to leave ea message mailbox is full. Attempted to call Pily line disconnected. 01:11 Reassessment: Patient and/or family updated on plan of care and expected duration. Pain ea level reassessed. Patient is alert, oriented x 3, equal unlabored respirations, skin warm/dry/pink. [facility] ambulance at facility for transfer, report given to EMS. Pt left ED via stretcher per EMS tolerating well. Vital Signs: 10/17 16:43 BP 76 / 60; Pulse 120; Resp 24 S; Temp 100.1; Pulse Ox 95% on R/A; Weight 81.65 kg; ss Height 6 ft. 2 in. (187.96 cm); 17:20 BP 75 / 43; Pulse 114; Resp 24; Pulse Ox 91% on R/A; kh1 17:51 BP 83 / 57; Pulse 114; Resp 24; Pulse Ox 90% ; mh5 17:58 BP 77 / 43; Pulse 111; Resp 29; Temp 99.8; Pulse Ox 94% ; jl7 18:39 BP 92 / 52; Pulse 115; Resp 25; Pulse Ox 92% ; jl7 19:03 BP 97 / 54; Pulse 109; Resp 25; Pulse Ox 100% ; jl7 22:45 BP 120 / 67; Pulse 89; Resp 22; Pulse Ox 92% on NC; ea 23:00 BP 116 / 65; Pulse 79; Resp 19; Pulse Ox 96% ; ea 10/18 00:00 BP 111 / 66; Pulse 79; Resp 20; Pulse Ox 99% ; ea 01:00 BP 121 / 61; Pulse 81; Resp 18; Pulse Ox 91% on R/A; ea 10/17 16:43 Body Mass Index 23.11 (81.65 kg, 187.96 cm) Vitals: 10/17 17:23 Cardiac Rhythm Assessment Sinus tach. community health ED Course: 16:37 Patient arrived in ED. ds1 16:46 Triage completed. iw 16:47 Arm band placed on. iw 17:04 Orlin Walker MD is Attending Physician. kdr 17:20 Luh Luciano is Primary Nurse. kh1 17:23 Patient has correct armband on for positive identification. Allergy band placed. Bed in community health low position. Call light in reach. Side rails up X 1. Adult w/ patient. 17:23 No provider procedures requiring assistance completed. Inserted saline lock: 20 gauge kh1 in right antecubital area, using aseptic technique. Blood collected. 17:25 Lyssa Peterson MD is Hospitalizing Provider. kdr 17:28 Amylase, Serum Sent. kh1 17:28 Basic Metabolic Panel Sent. kh1 17:28 Blood Culture Adult (2) Sent. kh1 17:28 CBC with Diff Sent. kh1 17:28 CPK Sent. kh1 17:28 Ckmb Sent. kh1 17:28 LFT's Sent. kh1 17:28 Lactate Sent. kh1 17:28 Lipase Sent. kh1 17:28 Procalcitonin Sent. kh1 17:28 Protime (+inr) Sent. kh1 17:28 Ptt, Activated Sent. kh1 17:28 Troponin (emerg Dept Use Only) Sent. kh1 17:58 Chest Single View XRAY In Process Unspecified. 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 Pulse ox on. NIBP on. jl7 22:35 Initiated transfer with Paloma from [facility]. Call was connected with brisa Pedroza for consultation and further questioning. 10/18 01:10 Patient transferred, IV remains in place. ea Administered Medications: 10/17 17:12 Drug: NS 0.9% (30 ml/kg) 30 ml/kg Route: IV; Rate: bolus; Site: left antecubital; 18:55 Follow up: Response: No adverse reaction; IV Status: Completed infusion; IV Intake: jl7 2450ml 18:11 Drug: Cefepime 1 grams Route: IVPB; Rate: 200 ml/hr; Infused Over: 30 mins; Site: right jl7 antecubital; 18:15 Follow up: Response: No adverse reaction; IV Status: Completed infusion [facility] 18:55 Drug: vancoMYCIN 1.5 grams Route: IVPB; Rate: calculated rate; Site: left antecubital; [facility] 10/18 01:02 Follow up: Response: No adverse reaction; IV Status: Completed infusion 10/17 20:15 Drug: Norepinephrine (4 mg/250 mL D5W) 4 mcg/min Route: IV; Rate: calculated rate; ea Site: right antecubital; 10/18 01:02 Follow up: Response: No adverse reaction; IV Status: Infusion continued upon transfer 10/17 22:52 Not Given (Other Intervention Used): HydroCORTISONE 50 mg IVP once 23:03 Drug: Solu-CORTEF (hyrdoCORTISONE) 50 mg Route: IVP; Site: right antecubital; 10/18 01:03 Follow up: Response: No adverse reaction 10/17 23:06 Drug: Albumin 25 grams Volume: 100 ml; Route: IVPB; Site: right antecubital; 10/18 01:03 Follow up: IV Status: Completed infusion 10/17 23:07 Drug: Meropenem 1 grams Route: IV; Rate: calculated rate; Site: right antecubital; 10/18 01:02 Follow up: IV Status: Completed infusion ea Intake: 10/17 18:55 IV: 2450ml; Total: 2450ml. jl7 Outcome: 17:26 Decision to Hospitalize by Provider. kdr 21:37 ER care complete, transfer ordered by . kenny 10/18 00:00 Instructed on the need for transfer. ea 01:10 Transferred by ground EMS Transfer form completed. ea 01:10 Condition: stable 01:12 Patient left the ED. ea Signatures: Dispatcher [employer] EDMS Orlin Walker MD MD kdr Mickail, Joel, PA PA jmm Munoz, Edgar, RN RN Joann Louis ds1 Maxine Osborne RN Bree Cisneros, RN RN Lindsay Anderson Can Lange RN STAN jl7 Chloe Baum RN RN ea Trim, Tyler tt3 Marilia Chowdhury RN RN bs2 Mustapha, Luh 1 Corrections: (The following items were deleted from the chart) 10/17 18:41 16:43 BP 76 / 60; Pulse 55bpm; Resp 24bpm; Spontaneous; Pulse Ox 95% RA; Temp 100.1F; ss 81.65 kg; Height 6 ft. 2 in.; BMI: 23.1; iw
--- NOTE | 2020-10-17 17:27 | EDPHYS ---
Physician Documentation [facility] Name: Jersey De Leon Jr Age: 65 yrs Sex: Male : 1955 Arrival Date: 10/17/2020 Time: 16:37 Bed 3 Private MD: ED Physician Orlin Walker HPI: 10/17 17:26 This 65 yrs old Male presents to ER via Wheelchair with complaints of kdr Shortness Of Breath, Cough. 17:26 The patient has shortness of breath at rest, with light activity. Onset: The kdr symptoms/episode began/occurred gradually, today. Duration: The symptoms are continuous, and are steadily getting worse. The patient's shortness of breath is aggravated by coughing, exertion, light activity, is alleviated by. Associated signs and symptoms: Pertinent positives: Altered mental status. Severity of symptoms: At their worst the symptoms were severe incapacitating in the emergency department the symptoms are unchanged. The patient has not experienced similar symptoms in the past. The patient has been recently seen by a physician: The patient has been recently seen at the [facility] Emergency Department. Patient was initially diagnosed with Covid on September 09 this year. Subsequent to that he is been under the weather but not worsening until today when he had sudden change in his mental status. He also became more short of breath and developed a fever. On initial presentation, the patient is altered hypotensive and tachycardic. Historical: - Allergies: 16:46 Morphine; iw 16:46 Paxil; iw - PMHx: 16:46 CAD; Diabetes - NIDDM; High Cholesterol; Kidney stones; Leukemia; iw - Immunization history:: Client reports having NOT received the Covid vaccine. - Social history:: Smoking status: Patient reports the use of cigarette tobacco products, smokes two packs cigarettes per day. - Family history:: No immediate family members are acutely ill. - Code Status:: DOES NOT WANT TO LIVE ON BREATHING MACHINE. ROS: 17:26 Constitutional: Negative for weight loss, patient has had fever and chills this kdr afternoon Eyes: Negative for injury, pain, redness, and discharge, Neck: Negative for injury, pain, and swelling, Cardiovascular: Negative for chest pain, palpitations, and edema, Abdomen/GI: Negative for abdominal pain, nausea, vomiting, diarrhea, and constipation, Back: Negative for injury and pain, : Negative for injury, bleeding, discharge, and swelling, MS/Extremity: Negative for injury and deformity, Skin: Negative for injury, rash, and discoloration, Psych: Negative for depression, anxiety, suicide ideation, homicidal ideation, and hallucinations, Allergy/Immunology: Negative for hives, rash, and allergies, Endocrine: Negative for neck swelling, polydipsia, polyuria, polyphagia, and marked weight changes, Hematologic/Lymphatic: Negative for swollen nodes, abnormal bleeding, and unusual bruising. 17:26 Respiratory: Positive for cough, with no reported sputum, dyspnea on exertion, shortness of breath, Negative for hemoptysis. 17:26 Neuro: Positive for altered mental status. Exam: 17:26 Constitutional: This is a well developed, well nourished patient who is somnolent and kdr in mild distress. Head/Face: Normocephalic, atraumatic. Eyes: Pupils equal round and reactive to light, extra-ocular motions intact. Lids and lashes normal. Conjunctiva and sclera are non-icteric and not injected. Cornea within normal limits. Periorbital areas with no swelling, redness, or edema. Neck: Trachea midline, no thyromegaly or masses palpated, and no cervical lymphadenopathy. Supple, full range of motion without nuchal rigidity, or vertebral point tenderness. No Meningismus. Chest/axilla: Normal chest wall appearance and motion. Nontender with no deformity. No lesions are appreciated. Respiratory: Lungs have equal breath sounds bilaterally, clear to auscultation and percussion. No rales, rhonchi or wheezes noted. No increased work of breathing, no retractions or nasal flaring. Abdomen/GI: Soft, non-tender, with normal bowel sounds. No distension or tympany. No guarding or rebound. No evidence of tenderness throughout. Back: No spinal tenderness. No costovertebral tenderness. Full range of motion. Skin: Warm, dry with normal turgor. Normal color with no rashes, no lesions, and no evidence of cellulitis. MS/ Extremity: Pulses equal, no cyanosis. Neurovascular intact. Full, normal range of motion. 17:26 Cardiovascular: Rate: Vital Signs: 16:43 BP 76 / 60; Pulse 120; Resp 24 S; Temp 100.1; Pulse Ox 95% on R/A; Weight 81.65 kg; Height 6 ft. 2 in. (187.96 cm); 17:20 BP 75 / 43; Pulse 114; Resp 24; Pulse Ox 91% on R/A; kh1 17:51 BP 83 / 57; Pulse 114; Resp 24; Pulse Ox 90% ; mh5 17:58 BP 77 / 43; Pulse 111; Resp 29; Temp 99.8; Pulse Ox 94% ; jl7 18:39 BP 92 / 52; Pulse 115; Resp 25; Pulse Ox 92% ; jl7 19:03 BP 97 / 54; Pulse 109; Resp 25; Pulse Ox 100% ; jl7 22:45 BP 120 / 67; Pulse 89; Resp 22; Pulse Ox 92% on NC; ea 23:00 BP 116 / 65; Pulse 79; Resp 19; Pulse Ox 96% ; ea 10/18 00:00 BP 111 / 66; Pulse 79; Resp 20; Pulse Ox 99% ; ea 01:00 BP 121 / 61; Pulse 81; Resp 18; Pulse Ox 91% on R/A; ea 10/17 16:43 Body Mass Index 23.11 (81.65 kg, 187.96 cm) ss MDM: 10/17 17:26 Patient medically screened. kdr 18:44 Data reviewed: vital signs, nurses notes, lab test result(s), radiologic studies. kdr Counseling: I had a detailed discussion with the patient and/or guardian regarding: the historical points, exam findings, and any diagnostic results supporting the discharge/admit diagnosis, lab results, radiology results, the need for further work-up and treatment in the hospital. 23:24 ED course: attempted to give patient amikacin as discussed with accepting physician ej however it is not in the hospital's formulary.. 10/17 17:02 Order name: Amylase, Serum; Complete Time: 18:22 ss 10/17 17:02 Order name: Basic Metabolic Panel; Complete Time: 18:22 ss 10/17 17:02 Order name: Blood Culture Adult (2) ss 10/17 17:02 Order name: CBC with Diff 10/17 17:02 Order name: CPK; Complete Time: 18:22 ss 10/17 17:02 Order name: Ckmb; Complete Time: 18:22 ss 10/17 17:02 Order name: LFT's; Complete Time: 18:22 ss 10/17 17:02 Order name: Lactate; Complete Time: 18:22 ss 10/17 17:02 Order name: Lipase; Complete Time: 18:22 ss 10/17 17:02 Order name: Procalcitonin; Complete Time: 18:22 ss 10/17 17:02 Order name: Protime (+inr); Complete Time: 18:22 ss 10/17 17:02 Order name: Ptt, Activated; Complete Time: 18:22 ss 10/17 17:02 Order name: Troponin (emerg Dept Use Only); Complete Time: 18:22 ss 10/17 17:02 Order name: Chest Single View XRAY ss 10/17 17:02 Order name: Accucheck; Complete Time: 17:13 ss 10/17 17:32 Order name: Glucose, Ancillary Testing; Complete Time: 18:22 EDMS 10/17 19:26 Order name: Manual Differential EDMS 10/17 22:05 Order name: SARS-COV-2 RT PCR EDMS 10/17 17:02 Order name: Cardiac monitoring; Complete Time: 17:13 ss 10/17 17:02 Order name: EKG - Nurse/Tech; Complete Time: 17:28 ss 10/17 17:02 Order name: IV Saline Lock - Large Bore; Complete Time: 17:13 ss 10/17 17:02 Order name: Labs collected and sent; Complete Time: 17:13 ss 10/17 17:02 Order name: O2 Per Protocol; Complete Time: 17:13 ss 10/17 17:02 Order name: O2 Sat Monitoring; Complete Time: 17:13 ss Administered Medications: 17:12 Drug: NS 0.9% (30 ml/kg) 30 ml/kg Route: IV; Rate: bolus; Site: left antecubital; ss 18:55 Follow up: Response: No adverse reaction; IV Status: Completed infusion; IV Intake: jl7 2450ml 18:11 Drug: Cefepime 1 grams Route: IVPB; Rate: 200 ml/hr; Infused Over: 30 mins; Site: right jl7 antecubital; 18:15 Follow up: Response: No adverse reaction; IV Status: Completed infusion jl 18:55 Drug: vancoMYCIN 1.5 grams Route: IVPB; Rate: calculated rate; Site: left antecubital; [facility] 10/18 01:02 Follow up: Response: No adverse reaction; IV Status: Completed infusion ea 10/17 20:15 Drug: Norepinephrine (4 mg/250 mL D5W) 4 mcg/min Route: IV; Rate: calculated rate; ea Site: right antecubital; 10/18 01:02 Follow up: Response: No adverse reaction; IV Status: Infusion continued upon transfer ea 10/17 22:52 Not Given (Other Intervention Used): HydroCORTISONE 50 mg IVP once ea 23:03 Drug: Solu-CORTEF (hyrdoCORTISONE) 50 mg Route: IVP; Site: right antecubital; ea 10/18 01:03 Follow up: Response: No adverse reaction ea 10/17 23:06 Drug: Albumin 25 grams Volume: 100 ml; Route: IVPB; Site: right antecubital; ea 10/18 01:03 Follow up: IV Status: Completed infusion ea 10/17 23:07 Drug: Meropenem 1 grams Route: IV; Rate: calculated rate; Site: right antecubital; 10/18 01:02 Follow up: IV Status: Completed infusion Disposition: 10/17 23:24 Chart complete. Chart complete. 10/18 20:18 Co-signature as Attending Physician, Orlin Walker MD I agree with the assessment and kdr plan of care. Disposition Summary: 10/17/20 21:37 Transfer Ordered Transfer Location: Other Acute Care Facility [facility] Reason: Higher level of care jmm Condition: Stable(10/17/20 21:37) jmm Problem: new(10/17/20 21:37) jmm Symptoms: are unchanged(10/17/20 21:37) jmm Accepting Physician: Higher Level of Care(10/18/20 01:12) Diagnosis - Sepsis jmm - Cardiogenic shock jmm - Pneumonia jmm Forms: - Medication Reconciliation Form jmm - SBAR form jmm Signatures: Dispatcher [employer] Helena Zeng RN RN mw Rittger, Kevin, MD MD kdr Mickail, Joel, PA PA jmm Williams, Irene, RN RN iw Smirch, Shelby, RN RN ss Leal, Jahala, RN RN jl7 Chloe Baum RN RN ea Johnson, Evan, PA PA ej Harris, Kecia [facility] Corrections: (The following items were deleted from the chart) 10/17 20:07 17:26 Telemetry/MedSurg (Inpatient) kdr mw 20:07 17:26 kdr mw 21:35 17:26 Inpatient Admission kdr jmm 21:35 17:26 Lyssa Peterson kdr jmm 21:35 17:26 Serious kdr jmm 21:35 17:26 new kdr jmm 21:35 17:26 have improved kdr jmm 21:35 17:26 Standard kdr jmm 21:35 17:26 Other specified sepsis kdr jmm 21:35 20:07 Intensive Care Unit mw jm 21:35 20:07 mw m 10/18 01:12 10/17 21:37 Higher Level of Care [facility] ea
[2020-10-17 17:30] LABS: Absolute Lymphocytes (CBC) 1.1 K/uL (0.7-4.9); Basophils % 0.3 % (0-1.3); Lymphocytes % 7.2 % (15.3-44.8); MPV 10.3 fL (7.6-11.3)
[2020-10-17 17:34] LABS: Protime INR 1.12
[2020-10-17 17:58] LABS: ALT/SGPT 14 U/L (12-78); AST/SGOT 12 U/L (15-37); Albumin 2.5 g/dL (3.4-5.0); Alkaline Phosphatase 129 U/L (45-117); Amylase 33 U/L (25-115); BUN Blood Urea Nitrogen 9 mg/dL (7-18); Bicarbonate 30 mmol/L (21-32); Bilirubin Direct 0.3 mg/dL (0-0.2); Bilirubin Total 0.9 mg/dL (0.2-1.0); Creatine Phosphokinase 46 U/L (39-308); Lipase 88 U/L (73-393); Potassium 3.5 mmol/L (3.5-5.1); Protein, Total 6.8 g/dL (6.4-8.2); Sodium Level 132 mmol/L (136-145); Troponin (Emerg Dept Use Only) 0.03 ng/mL (0.0-0.045)
[2020-10-17 18:00] LABS: CKMB Creatine Kinase MB < 1.0 ng/mL (1.0-3.6); Glucose Level 413 mg/dL (74-106)
[2020-10-17] MEDS ORDERED: CEFEPIME/SWI 1gm 10 ML ONE (18:32)
[2020-10-17] MEDS ORDERED: LIDOCAINE 1% MPF 5 ML VIAL ONE (18:55)
[2020-10-17] MEDS ORDERED: VANCOMYCIN 1.5 GM in NA CHLORIDE 0.9% 500 ML IVPB ONE (19:00)
--- NOTE | 2020-10-17 19:02 | RAD REPORT ---
EXAM DESCRIPTION: RAD - Chest Single View - 10/17/2020 5:59 pm CLINICAL HISTORY: sepsis protofcol COMPARISON: Two view chest September 23 TECHNIQUE: AP portable chest image was obtained 10/17/2020 5:59 pm . FINDINGS: Chronic interstitial lung disease is present. Lung parenchymal opacity seen on the September 23 imaging are absent or significantly reduced. No progressive lung parenchymal finding. No cavitatio n or mass lesions seen. Left subclavian pacemaker partially obscures the upper left chest. Heart size is upper normal. Pulmonary vasculature within limits of normal for portable imaging. No m easurable pleural effusion and no pneumothorax. No acute bony abnormality seen. No acute aortic findi ngs suspected. IMPRESSION: Chronic interstitial lung disease is present. Scattered lung parenchymal opacities, more pronounced in the mid and lower left lung field have reduc ed in prominence since the September 23 examination.
[2020-10-17] MEDS ORDERED: NA CHLORIDE 0.9% 500 ML ONE (19:13)
[2020-10-17 19:26] LABS: Blood Morphology Comment NOT SEEN (NOT SEEN); Platelet Estimate DECR
[2020-10-17] MEDS ORDERED: NOREPINEPHRINE 4mg/D5W 250mL 4 MG/250 ML BAG IV ONE (20:33)
[2020-10-17] MEDS ORDERED: ALBUMIN HUMAN 25% 100 ML IV ONE ×2 (21:11→23:06)
[2020-10-17] MEDS ORDERED: Meropenem 500 MG/100 ML BAG IV SCH (21:15)
[2020-10-17] MEDS ORDERED: HYDROCORTISONE SUC 100 MG INJ ONE (23:05)
[2020-10-17] MEDS ORDERED: Meropenem 1 GM/100 ML BAG ONE (23:06)
[2020-10-18 01:24] VITALS: TEMP 99.8
[2020-10-18 01:27] VITALS: BP 97/54; O2SAT 100
[2020-10-18] MEDS ORDERED: NOREPINEPHRINE 4mg/D5W 250mL 4 MG/250 ML BAG IV ONE (01:28)
--- NOTE | 2020-10-21 10:09 | EKG ---
Test Date: 2020-10-17 Test Time: 17:26:26 [employer] Helper: YVAN MEASUREMENT RESULTS: Intervals: Rate: 110 MN: 174 QRSD: 98 QT: 376 QTc: 508 [place]: P: 59 MN: 174 QRS: -52 T: 107 INTERPRETIVE STATEMENTS: Sinus tachycardia with occasional premature ventricular complexes Possible Left atrial enlargement Left axis deviation Inferior infarct, age undetermined ST & T wave abnormality, consider anterolateral ischemia Abnormal ECG Compared to ECG 09/09/2020 11:14:55 Ventricular premature complex(es) now present ST (T wave) deviation now present T-wave abnormality no longer present Myocardial infarct finding still present Possible ischemia still present Electronically Signed On 10-21-20 10:05:01 CDT by Shawn Lockhart
== END 2020-10-18 01:12 ==
LOC: ER 16:28
DX: A41.9 Sepsis, unspecified organism (principal); U07.1 COVID-19; J18.9 Pneumonia, unspecified organism; R57.0 Cardiogenic shock; F17.210 Nicotine dependence, cigarettes, uncomplicated; Z88.5 Allergy status to narcotic agent; Z88.8 Allergy status to other drugs, medicaments and biological substances
CPT/HCPCS: 93005; 87040 ×2; 85025; 80048; 36415; 82150; 82550; 85610; 82947; 80076; 83605; 85730; 84484; 82553; 83690; 84145; 71045; 99291; U0003; J3370; J0692; J2185; P9047; J7040 ×2; J7030; J1720

== ENCOUNTER 2021-01-20 09:52 | Day surgery (SDC) | payer OTHER ==
[2021-01-15 10:36] LABS: Absolute Lymphocytes (CBC) 2.9 K/uL (0.7-4.9); Basophils % 0.4 % (0-1.3); Hematocrit 48.8 % (39.6-49.0); Lymphocytes % 25.7 % (15.3-44.8); MPV 8.9 fL (7.6-11.3); RBC Red Blood Cell Count 5.18 M/uL (4.33-5.43)
[2021-01-15 10:41] LABS: Potassium 4.3 mmol/L (3.5-5.1)
[2021-01-20] MEDS ORDERED: NA CHLORIDE 0.9% 1,000 ML ONE (10:20)
[2021-01-20] MEDS ORDERED: dexAMETHasone 10 MG/ML VIAL ONE (11:23)
[2021-01-20] MEDS ORDERED: ONDANSETRON 4 MG/2 ML VIAL ONE (11:23)
[2021-01-20] MEDS ORDERED: propofoL 200 MG/20 ML VIAL IV ONE (11:23)
[2021-01-20] MEDS ORDERED: MIDAZOLAM HCL 2 MG/2 ML INJ ONE (11:23)
[2021-01-20] MEDS ORDERED: LIDOCAINE 2% MPF 5 ML VIAL ONE (11:23)
[2021-01-20] MEDS ORDERED: FENTANYL CITR 100 MCG/2 ML ONE (11:23)
[2021-01-20] MEDS ORDERED: KETOROLAC 30 MG/ML INJ ONE (11:23)
[2021-01-20] MEDS ORDERED: NS 0.9% VIAL 30 ML ONE (11:39)
[2021-01-20] MEDS ORDERED: LIDOCAINE 1% MPF 30 ML VIAL ONE (11:43)
--- NOTE | 2021-01-20 13:57 | OP ---
Date of Procedure: 01/20/2021 Surgeon: Mat Magallon MD Preoperative Diagnosis: Left carpal tunnel syndrome. Postoperative Diagnosis: Left carpal tunnel syndrome. Procedure: Left open carpal tunnel release. Estimated Blood Loss: Less than 3 cc. Complications: There were no complications. Pathology Specimens: No pathology specimens sent. Indications For Operation: Mr. De Leon is a 65-year-old gentleman, who unfortunately suffers from jose ropathy as well as multiple cardiac problems as well as painful shoulder; however, is complaining of numbness and tingling as well as pain in the first 3 digits of his left hand. He has neurological te sting, which demonstrates carpal tunnel syndrome on the left. Risks, benefits, and alternatives of d ifferent methods of treating have been discussed and opt for open carpal tunnel release. He was told that with his underlying neuropathy as well as other issues, hopefully this will be helpful for him, although may not be cured with regard to his symptoms related to his upper extremity. He says he un derstands things as presented and wishes to proceed. Description Of Procedure: The patient was taken to the operating room and a Annette block as well as se dation was achieved by the Anesthesia staff. This was followed by prepping and draping of the left u pper extremity in a normal sterile fashion. After this, a standard approach was taken down carefully through the skin and soft tissues. Meticulous hemostasis being maintained using Bovie electrocauter y. This does parallel to thenar crease with ulnar deviation at the distal wrist crease. The palmar fascia was then divided and retracted. Any obstructions of the transverse carpal ligament were then swept to the side. A small keeley was made in the transcarpal ligament and then divided in a distal to proximal direction until no constricting bands, then in a proximal to distal direction until there w ere no constricting bands. At no time were any sharp instruments placed outside the direct operative field and it should be noted that the median nerve was in continuity. Following this, the incision was sutured. He was placed in a well-padded sterile dressing. He will need the tourniquet band for a little bit longer for the [place] block, but at the conclusion of the case, he was doing well. SE/MODL Voice ID: [id number] Report ID: [id number]
[2021-01-20 15:11] VITALS: BP 95/75; TEMP 97.7
[2021-01-20 15:13] VITALS: O2SAT 95
== END 2021-01-20 14:13 | disposition home or self-care (01) ==
LOC: OR 09:52
PROVIDERS: ATTEND Orthopaedic Surgery
PROC: 01N50ZZ Release Median Nerve, Open Approach (ICD-10-PCS; principal; 2021-01-20 11:15)
DX: G56.02 Carpal tunnel syndrome, left upper limb (principal); M25.532 Pain in left wrist; M25.512 Pain in left shoulder; Z20.822 Contact with and (suspected) exposure to COVID-19
CPT/HCPCS: 85025; 80048; 36415; 82947; 64721; U0002; J2704; J2250; J3010; J1100; J7030; J2405

== ENCOUNTER 2021-03-17 12:33 | Inpatient (IN) | payer OTHER ==
--- OUTSIDE RECORDS SUMMARY | 2021-03-17 12:44 | XMS REPORT | Continuity of Care Document ---
:1955 Author Organization [facility] t Address [address] [place] [address] Care Team Providers Name Role Phone Asked, Pcp Primary Care Physician Unavailable LAMONT FITZGERALD Attending Clinician Unavailable SYSTEM, NOT IN Attending Clinician Unavailable Chay Seth MD Attending Clinician Reji JAMIL Attending Clinician Unavailable MARI Attending Clinician Unavailable Hao ALBERTS Attending Clinician Unavailable Ravindra MORAN Attending Clinician Unavailable DINA LEE Attending Clinician Unavailable Dina Lee MD Attending Clinician , [facility] Attending Clinician Unavailable JEAN-CLAUDE Attending Clinician Unavailable Girish Hickey MD Attending Clinician Rosa GUZMÁN Attending Clinician Irena HIGGINS Attending Clinician Unavailable REBECA Attending Clinician Unavailable Hao LUTHER Attending Clinician Unavailable Doctor Unassigned, Name Attending Clinician Unavailable CHAD Attending Clinician Unavailable DO SORENSEN Attending Clinician Unavailable TAL Attending Clinician Unavailable Girish Dunn RN Attending Clinician Lamont Fitzgerald MD Attending Clinician Kath GUZMÁN Attending Clinician Tian GUZMÁN Attending Clinician Sin Brown Attending Clinician Unavailable Gilmar PIERCE, S Attending Clinician Unavailable TIAN Attending Clinician Unavailable Tian GUZMÁN Attending Clinician WESLEY Attending Clinician Unavailable LAMONT FITZGERALD Admitting Clinician Unavailable CHAD Admitting Clinician Unavailable Payers Payer Name Policy Type Policy Number Effective Date Expiration Date S valdez [facility] [id number] 2015 SELECT CHOICE 00:00:00 SELECT/SELECT PLUS [id number] [facility] MEDICARE PART A AND [id number] 2020 B 00:00:00 [employer] LIFE [id number] 2020 00:00:00 MEDICARE A B [id number] 2020 00:00:00 [employer] LIFE [id number] 2020 00:00:00 [facility] [id number] 2018 PPO 00:00:00 [facility] [id number] 2015 PPO 00:00:00 Problems Condition Condition Condition Status Onset Resolution Last Treating Co mments Source Name Details Category Date Date Treatment Clinician Date 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 With multiple sequalea, Will focus eval on pulmonary and cardiac manifesta tions Leg Leg Disease Active [facility]: t & Plan: of 00 Formattin Medicin g of this e note might be different from the original. Worse post COVID, multifact orial with biventric ular failure, Pulm HTN Will check LE dopplers for DVT COVID-19 COVID-19 Disease Active Last Joselo r long long [facility] hauler hauler 00:00: t & Plan: of manifestin manifestin 00 Formattin Medicin g chronic g chronic g of this e dyspnea dyspnea note might be different from the original. 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 2 d echo orderedre bhavya to Dr Bran for evaluatio n and managemen t Fatigue Fatigue Disease Active [facility] 00:00: t & Plan: of 00 Formattin Medicin g of this e note might be different from the original. Post COVID , multifact orial Cough Cough Disease Active [facility] 00:00: t & Plan: of Formattin Medicin g of this e note might be different from the original. Prior CT report mentions bronchiec tasisCoun seld on smoking cessation Will check new CT and optimize airway managemen t according ly Dizziness Dizziness Disease Active Yancey naya 02-15 [place] 00:00: of 00 Medicin e Pneumonia Pneumonia Disease Active Yancey naya due to due to 02-15 [place] COVID-19 COVID-19 00:00: of virus virus 00 Medicin e Shortness Shortness Disease Active Yancey naya of breath of breath 02-15 [facility] 00:00: of 00 Medicin e Excessive Excessive Disease Active [facility] naya daytime daytime [facility] sleepiness sleepiness 00:00: t & Plan: of 00 Formattin Medicin g of this e note might be different from the original. With sig fatigueHa s Hx DORY COVID-19 COVID-19 Disease Active [facility] 02-15 [place] 00:00: of 00 Medicin e Multiple Multiple [facility] al al 00:00: t & Plan: of pulmonary pulmonary 00 Formattin M edicin emboli emboli g of this e without without note acute cor acute cor might be pulmonale pulmonale different (HCCode) (HCCode) from the (HCC) (HCC) original. Hx pulm embolism with COVID illness , not currently on therapy Encounter Encounter Disease Active [facility] naya for for 02-15 [employer] [employer] smoking smoking 00:00: t & Plan: of cessation cessation 00 Formattin M ghadaicin counseling counseling g of this e note might be different from the original. Declined ref to smoking cessation program , Stenosis Stenosis Disease [facility] [...] [facility] - failure failure 00:00: Medical ([facility]): EF (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 Follows up at [facility] Respirator Respirator Disease Active [facility] - insufficie insufficie Me dical ncy ncy Center S/P CABG x S/P CABG x Disease Active [facility] 2 2 [facility] Cardiogeni Cardiogeni Disease Active [facility] c shock c shock [facility] Lactic Lactic Disease Active [facility] acidosis acidosis [facility] Acute Acute Disease Active [facility] respirator respirator Vania kes - y failure y failure Medi harpal with with Center hypoxia hypoxia Allergies, Adverse Reactions, Alerts Allergy Allergy Status Severity Reaction(s) Onset Inactive Treating Comm ents Source Name Type Date Date Clinician Opioid Propensi Active [facility] Analgesi ty to 02-12 [place] cs adverse 00:00: of reaction 00 Medicin s to e drug Morphine Propensi Active Other (See 2017-02 "Heart Me thodi ty to Comments) 02-[address] adverse 00:00: symptoms" Hospit a reaction 00 "Dyspnea, l s to elevated drug BP, irregular heart rhythm" Paroxeti Propensi Active Other (See 2017-02 "Made me Methodi ne Hcl ty to Comments) 02-25 crazy" [address] adverse 00:00: Hospita reaction 00 l s to drug PAROXETI Allergy Active [facility] NE HCL 08-17 00:00: 00 MORPHINE Allergy Active Low Palpitations S LEH 08-17 00:00: 00 MORPHINE DRUG Active Low Palpitations Un gianna INGREDI 08-17 ity of 00:00: [place] 00 Medical Branch Morphine Propensi Active Palpitations Respira to Univers ty to 08-17 ry ity of adverse 00:00: depressio [place] reaction 00 n Medical s Branch Morphine Drug Active Palpitations Respirato [facility] Allergy 08-17 ry [facility] - 00:00: depressio Medical 00 n Center Paroxeti Propensi Active [facility] ne Hcl ty to 08-17 [facility] - adverse 00:00: Medical reaction 00 Center s PAROXETI DRUG Active Med Anxiety Univers NE HCL INGREDI 10-16 ity of 00:00: [place] 00 Medical Branch Paroxeti Propensi Active Anxiety "I get Unive rs ne Hcl ty to 10-16 crazy" ity of adverse 00:00: [place] reaction 00 Medical s Branch Paroxeti Propensi Active Other (See "I get Ba ylor ne Hcl ty to Comments) 10-16 crazy""Ma Janis ege adverse 00:00: de me of reaction 00 crazy""I Medici n s to get e drug crazy" Social History Social Habit Start Date Stop Date Quantity Comments Source History SDOH [facility] Colle ge Alcohol Std Drinks of Med icine Exposure to Not sure [facility] Madaig e SARS-CoV-2 (event) of Med icine History SDOH [facility] Alcohol Binge of Medicine History SDKY Yarsanism Alcohol Comment Hospital Alcohol intake 2021-03-17 2021-03-17 Lifetime [facility] Col lege 00:00:00 00:00:00 non-drinker of Medicine (finding) History SDKY 2021-02-12 2021-02-12 1 [facility] Alcohol Frequency 00:00:00 00:00:00 of [employer] Cigarettes smoked 2021-02-12 2021-02-12 [facility] current (pack per 00:00:00 00:00:00 of [employer] day) - Reported Cigarette 2021-02-12 2021-02-12 [facility] pack-years 00:00:00 00:00:00 of Medicine Tobacco use and 2021-02-12 2021-02-12 Smokeless tobacco [facility] exposure 00:00:00 00:00:00 non-user of Medicine Sex [birth year] [facility] Co llege 00:00:00 00:00:00 of Medicine Smoking Status Start Date Stop Date Source Heavy tobacco smoker 2021-02-12 00:00:00 [facility] Smokes tobacco daily 2017-12-26 00:00:00 [facility] Medications Ordered Filled Start Stop Current Ordering Indication Dosage Frequency Signature Comments Components Source Medication Medication Date Date Medication? Clinician (SIG) Name Name atorliboriotaedgar Yes Take by León hoffman (LIPITOR) 2-08 [facility] 80 MG 10:08: daily. of tablet 38 Medicin e promethazin Yes 12.5mg Take 12.5 [facility] e 2-08 mg by [place] (PHENERGAN) 10:08: mouth of 12.5 MG 38 every 6 Medicin tablet hours as e needed for Nausea. Pyridoxine Yes Take by [facility] HCl 2-08 mouth. [place] (VITAMIN 10:08: of B-6) 100 MG 38 Medicin TABS e Sacubitril- Yes Take by León rao Valsartan 2-08 mouth. [place] 24-26 MG 10:08: of TABS 38 Medicin e bumetanide 0 Yes 2mg Take 2 mg Ba [facility] (BUMEX) 2 2-08 by mouth Colleg e MG tablet 10:08: daily. of 38 Medicin e alprazolam 0 Yes .5mg Take 0.5 Y[facility]y naya (XANAX) 0.5 2-08 mg by [place] MG tablet 10:08: mouth of 38 nightly as Medicin needed for e Sleep. Aspirin 81 0 Yes 81mg Take 81 mg B aylor MG tablet 2-08 by mouth. Colle ge 10:08: of 38 Medicin e Budesonide- 2021-0 2- No Inhale by [facility] Formoterol 2-08 02-08 mouth. Colleg e Fumarate 09:58: 00:00 of 160-4.5 53 :00 Medicin MCG/ACT e AERO Aspirin 81 0 Yes 81mg Take 81 mg B aylor MG tablet 1-06 by mouth. Colle ge 09:15: of 49 Medicin e atorvastati 0 Yes Take by maira n (LIPITOR) 1-06 mouth [place] 80 MG 09:06: daily. of tablet 11 Medicin e Budesonide- 0 Yes Inhale by [facility] Formoterol 1-06 mouth. [place] Fumarate 09:06: of 160-4.5 11 Medicin MCG/ACT e AERO promethazin Yes 12.5mg Take 12.5 [facility] e 1-06 mg by [place] (PHENERGAN) 09:06: mouth of 12.5 MG 11 every 6 Medicin tablet hours as e needed for Nausea. Pyridoxine Yes Take by Yancey naya HCl 1-06 mouth. [place] (VITAMIN 09:06: of B-6) 100 MG 11 Medicin TABS e Sacubitril- 0 Yes Take by maira Valsartan 1-06 mouth. [place] 24-26 MG 09:06: of TABS 11 Medicin e bumetanide 0 Yes 2mg Take 2 mg [facility] (BUMEX) 2 1-06 by mouth Colleg e MG tablet 09:06: daily. of 11 Medicin e alprazolam Yes .5mg Take 0.5 Yancey naya (XANAX) 0.5 1-06 mg by [place] MG tablet 09:06: mouth of 11 nightly as Medicin needed for e Sleep. albuterol 2020-02 Yes [facility] 108 (03-11 [facility]) 00:00: of mcg/act 00 Medicin inhaler e albuterol 2020-02 Yes [facility] 108 (03-11 [facility]) 00:00: of mcg/act 00 Medicin inhaler e ipratropium Yes 2{puff} Q.[id number] Inhale [address] [facility] (ATROVENT 4-24 [id number] puffs by [facility] - HFA) 17 13:25: [...] l mg chewable 44 daily. Center tablet ipratropium Yes 2{puff} Q.[id number] Inhale [address] [facility] (ATROVENT 4-24 [id number] puffs by [facility] - HFA) 17 13:25: [...] Take [address] [facility] e -23 04-23 by mouth [facility] - (PHENERGAN) 22:33: 00:00 every 8 Me dical 12.5 MG 14 :00 (eight) Center tablet hours as needed for Nausea. glipiZIDE 2020- No 5mg Take [address] (GLUCOTROL) - 04-23 by mouth 2 L ukes - 10 MG 22:33: 00:00 (two) Medical tablet 14 :00 times Center daily before meals . promethazin 2020- No 25mg Take [address] [facility] e -23 04-23 by mouth [facility] - (PHENERGAN) 22:33: 00:00 every 8 Me dical 12.5 MG 14 :00 (eight) Center tablet hours as needed for Nausea. glipiZIDE 2020- No 5mg Take [address] (GLUCOTROL) 4-23 04-23 by mouth 2 L ukes - 10 MG 22:33: 00:00 (two) Medical tablet 14 :00 times Center daily before meals . cetirizine 2020- No 10mg QD Take [address] (ZYRTEC) 10 4-14 04-14 by mouth Carlos es - mg Cap 11:19: 00:00 nightly. Medica l 32 :00 [place] cetirizine 2020-0 2020- No 10mg QD Take [address] (ZYRTEC) 10 4-14 04-14 by mouth Carlos es - mg Cap 11:19: 00:00 nightly. Medica l 32 :00 Center blood sugar 2019-02 Yes Use to Univ ers diagnostic 1-04 check ity of (ONETOUCH 00:00: blood [place] ULTRA BLUE 00 sugar 3X Medic al TEST STRIP) daily. Branch strip DX:E09.9 Insulin 2019-02 Yes Use to Univers [place], -04 inject ity of Disposable, 00:00: insulin 4X [place] (BD INSULIN 00 daily. Medica l PEN NEEDLE DX:E09.9 [facility] h UF) 31 gauge x 5/16" Ndle Insulin 2019-02 Yes 8U Inject [facility] Lispro, 1 0-28 8-18 Units Janis ege Unit Dial, 00:00: into the of 100 UNIT/ML 00 skin. Medicin SOPN e Insulin 2019-02 Yes 8U Inject [facility] Lispro, 1 0-28 8-18 Units Janis ege Unit Dial, 00:00: into the of 100 UNIT/ML 00 skin. Medicin SOPN e Insulin 2019-02 Yes [id number] 15U inject 15 Un gianna Glargine 0-28 Units ity of (LANTUS 00:00: under the [place] SOLOSTAR 00 skin every Medic al U-100 morning. Branch INSULIN) E10.65 100 unit/mL (3 mL) injection HUMALOG 2019-02 Yes [id number] 4U inject Unive rs KWIKPEN 0-28 4-10 Units ity of INSULIN 100 00:00: under the [place] unit/mL 00 skin 3 Medical injection (three) Branch times daily before meals. E10.65 ONETOUCH 2019-02 Yes [id number] Use as Univ ers DELICA 0-28 directed ity of LANCETS 30 00:00: E10.65 [place] gauge Misc 00 Medical Branch insulin 2019-02 Yes 15U Inject 15 [facility] glargine 0-28 Units [facility] - (Lantus 00:00: subcutaneo Medi harpal Solostar 00 usly daily Cente r U-100 with Insulin) breakfast 100 unit/mL . (3 mL) [facility] insulin 2019-02 Yes 4U Inject [facility] lispro 0-28 4-10 Units [facility]ukes - (HumaLOG 00:00: subcutaneo Med ical KwikPen 00 usly Center Insulin) Sliding 100 unit/mL scale. [facility] insulin 2019-02 Yes 15U Inject 15 [facility] t glargine 0-28 Units [facility] - (Lantus 00:00: subcutaneo Medi harpal Solostar 00 usly daily Cente r U-100 with Insulin) breakfast 100 unit/mL . (3 mL) [facility] insulin 2019-02 Yes 4U Inject [facility] lispro 0-28 4-10 Units [facility] - (HumaLOG 00:00: subcutaneo Med ical KwikPen 00 usly Center Insulin) Sliding 100 unit/mL scale. [facility] budesonide- 2019-02 Yes 2{puff} Q.5D [address] formoteroL 0-23 (two) [facility]ukes - (Symbicort) 00:00: times Medic al 160-4.5 00 daily. Center mcg/actuati on inhaler budesonide- 2019-02 Yes 2{puff} Q.5D [address] formoteroL 0-23 (two) [facility] - (Symbicort) 00:00: times Medic al 160-4.5 00 daily. Center mcg/actuati on inhaler gabapentin Yes 300mg Take 300 Un gianna 300 mg 1-18 mg by ity of capsule 14:30: mouth. [address] proMETHazin Yes 25mg Take 25 mg Univers e 12.5 mg 1-18 by mouth. ity o f tablet 14:30: [address] levoFLOXaci Yes 500mg Take 500 U nivers n 500 mg 1-18 mg by ity of tablet 14:30: mouth. [address] sacubitril- Yes Take by Un gianna valsartan 1-18 mouth. ity of (ENTRESTO) 14:30: [place] [address] aspirin 81 Yes 81mg Take 81 mg U nivers mg EC 1-18 by mouth. ity of tablet 14:30: [address] atorvastati 2019-0 Yes 80mg Take 80 mg Univers n 80 mg 1-18 by mouth. ity of tablet 14:30: [address] Cetirizine 2019-0 Yes 10mg Take 10 mg U nivers (ZYRTEC) 10 1-18 by mouth. ity of mg capsule 14:30: [address] mercaptopur 2017-02 Yes 50mg Take 50 mg Univers ine 50 mg 2-27 by mouth. ity o f tablet 00:00: [address] traMADOL 50 2017-02 Yes 50mg Take 50 mg Univers mg tablet 2-27 by mouth. ity o f 00:00: [address] traMADol 2017-02 Yes 50mg Take [address] (ULTRAM) 50 2-27 by mouth. Carlos es - mg tablet 00:00: [address] traMADol 2017-02 Yes 50mg Take [address] (ULTRAM) 50 2-27 by mouth. Carlos es - mg tablet 00:00: [address] ipratropium 2017-02 Yes 1{puff} Inhale 1 [facility] (ATROVENT 1-[address] HFA) 17 09:07: needed for Hosp gene mcg/actuati 39 wheezing. l on inhaler promethazin 2017-02 Yes 12.5mg Q6H Take 12.5 Methodi e 1-[address] (PHENERGAN) 09:07: mouth Hospi ta 12.5 MG 39 every 6 l tablet (six) hours as needed for nausea or vomiting. sacubitril- 2017-02 Yes Q.5D Take by Met hodi valsartan 1-[address] (ENTRESTO) 09:07: (two) Hospit a 24-26 mg 39 times a l tablet per day. tablet linagliptin 2017-02 Yes 5mg QD Take 5 mg M ethodi (TRADJENTA) 1-[address] 5 mg tablet 09:07: every Hospi ta 39 evening. l States has not needed recently glipiZIDE 2017-02 Yes 10mg QD Take 10 mg Me thodi (GLUCOTROL) 1-[address] 10 MG 09:07: every Hospita tablet 39 morning. l amIODarone 2017-02 Yes 200mg QD Take 200 Me thodi (PACERONE) 1-[address] 200 MG 09:07: mouth Hospita tablet 39 daily. l BUMETanide 2017-02 Yes 1mg Q.5D Take 1 mg Me thodi (BUMEX) 1 1-[address] MG tablet 09:07: (two) Hospita 39 times a l day. calcium 2017-02 Yes 1{tbl} QD Chew 1 Method i carbonate 1-[address] (TUMS) 200 09:07: daily. Hospi ta mg calcium 39 l (500 mg) chewable tablet atorvastati 2017-02 Yes 80mg QD Take 80 mg Methodi n (LIPITOR) 1-[address] 80 MG 09:07: daily. Hospita tablet 39 States l cholestero l levels have improved, and also needs new prescripti on aspirin 2017-02 Yes 81mg QD Take 81 mg Meth joo (ECOTRIN) 1-[address] 81 MG 09:07: daily. Hospita enteric 39 l coated tablet ipratropium Yes 1{puff} Inhale 1 Univers (ATROVENT 9-10 Puff. ity of HFA) 17 00:00: [facility] Medical on inhaler Branch amiodarone Yes Take 1 bid U nivers 200 mg 08-29 for 7 days ity of tablet 00:00: then [place] 00 reduced to Medical 1 po daily Branch thereafter . amiodarone 2020- No Take [address] [facility] (PACERONE) 08-29 for 7 days Vania kes - 200 MG 00:00: 00:00 then Medical tablet 00 :00 reduced to Center 1 po daily thereafter . amiodarone 2020- No Take [address] [facility] (PACERONE) 08-29 for 7 days Vania kes - 200 MG 00:00: 00:00 then Medical tablet 00 :00 reduced to Center 1 po daily thereafter . Vital Signs Vital Name Observation Time Observation Value Comments Source HEIGHT 2020-05-29 06:25:00 185.4 cm WEIGHT 2020-05-29 06:25:00 92.851 kg HEIGHT 2020-05-28 13:05:00 185.4 cm WEIGHT 2020-05-28 13:05:00 93 kg Systolic blood 2021-03-17 16:06:00 114 mm[Hg] [employer] Diastolic blood 2021-03-17 16:06:00 73 mm[Hg] [facility] Medicine Heart rate 2021-03-17 16:06:00 71 /min [facility] [employer] [facility] [employer] Body temperature 2021-03-17 16:06:00 36.61 [facility] Body height 2021-03-17 16:06:00 185.4 cm [facility] ol[facility] of [facility] Body weight 2021-03-17 16:06:00 98.431 kg [facility] ollege of [facility] BMI 2021-03-17 16:06:00 28.63 kg/m2 [facility] ollege of [facility] Systolic blood 2021-02-12 14:53:00 111 mm[Hg] [facility] Medicine Diastolic blood 2021-02-12 14:53:00 74 mm[Hg] [facility] Medicine Heart rate 2021-02-12 14:53:00 58 /min [facility] ollege of [facility] Body height 2021-02-12 14:53:00 185.4 cm [facility] ollege of [facility] Body weight 2021-02-12 14:53:00 92.987 kg [facility] ollege of [facility] BMI 2021-02-12 14:53:00 27.05 kg/m2 [facility] ollege of [facility] WEIGHT 2020-06-23 08:36:00 94.2 kg HEIGHT 2020-05-29 06:25:00 185.4 cm WEIGHT 2020-05-29 06:25:00 92.851 kg HEIGHT 2020-05-28 13:05:00 185.4 cm WEIGHT 2020-05-28 13:05:00 93 kg HEIGHT 2020-05-21 11:16:00 185.4 cm WEIGHT 2020-05-21 11:16:00 93.895 kg HEIGHT 2020-05-21 11:16:00 185.4 cm WEIGHT 2020-05-21 11:16:00 93.895 kg WEIGHT 2020-01-02 09:41:00 101.4 kg WEIGHT 2019-09-05 09:33:21 99.2 kg Heart rate 2020-05-31 09:16:00 92 /min [facility] Respiratory rate 2020-05-31 09:16:00 18 /min [facility] Oxygen saturation in 2020-05-31 09:16:00 97 /min [facility] - Arterial blood by Medical Ce nter Pulse oximetry Systolic blood 2020-05-31 07:00:00 116 mm[Hg] [facility] Diastolic blood 2020-05-31 07:00:00 72 mm[Hg] [facility] Body temperature 2020-05-31 07:00:00 36.33 [facility] Body height 2020-05-30 16:33:00 185.4 cm [facility] Body weight 2020-05-30 16:33:00 92.8 kg [facility] BMI 2020-05-30 16:33:00 26.99 kg/m2 [facility] Procedures Procedure Date / Time Performing Clinician Source Performed VENOUS DOPPLER LEGS 2021-02-24 12:04:[address] [facility] REFERRAL- 2020-10-28 05:01:00 Doctor Unassigned, No [facility] REQUEST/RESPONSE Name Medical Branch POCT-GLUCOSE METER 2020-05-31 08:18:00 Francis Stockton [facility] POCT-GLUCOSE METER 2020-05-30 21:07:00 Francis Stockton [facility] POCT-GLUCOSE METER 2020-05-30 17:05:[address] [facility] POCT-GLUCOSE METER 2020-05-30 12:30:[address] [facility] POCT-GLUCOSE METER 2020-05-30 08:41:[address] [facility] TSH/FREE T4 IF 2020-05-30 08:13:00 [facility] RPR 2020-05-30 08:13:00 [facility] VITAMIN B12 AND FOLATE 2020-05-30 08:13[facility]T [facility] & AUTO 2020-05-30 05:45:[address] [facility] BASIC METABOLIC PANEL 2020-05-30 05:45:[address] [facility] () [facility] MAGNESIUM 2020-05-30 05:45:00 Francis Stockton [facility] HEMOGLOBIN A1C 2020-05-30 05:45:00 Francis Stockton [facility] LIPID PANEL 2020-05-30 05:45:[address] [facility] CBC W/PLT COUNT & AUTO 2020-05-30 05:45:[address] [facility] POCT-GLUCOSE METER 2020-05-29 21:23:[address] [facility] POCT-GLUCOSE METER 2020-05-29 17:39:[address] [facility] GLUCOSE 2020-05-29 15:31:00 Yi Luciano [facility] POTASSIUM 2020-05-29 15:31:00 [facility], [facility] 2020-05-29 15:31[facility]00 [facility] 2020-05-29 15:31:00 Yi Luciano [address] POCT-GLUCOSE METER 2020-05-29 13:44:[address] [facility] POCT-GLUCOSE METER 2020-05-29 12:58:00 Justo Fitzgerald [facility] POCT-GLUCOSE METER 2020-05-29 11:40:[address] [facility] XR CHEST 1 VIEW 2020-05-29 11:29:00 Yi [facility] 12-LEAD 2020-05-29 10:01:02 Unknown, Hl7 [facility] ECG 12-LEAD 2020-05-29 10:01:02 Unknown, Hl7 Doctor [facility] BLOOD GAS, ARTERIAL 2020-05-29 09:58:00 Juan Jose Garrick [facility] LACTIC ACID, ARTERIAL 2020-05-29 09:56:00 Juan JoseGarrick [facility] BASIC METABOLIC PANEL 2020-05-29 09:56:00 Juan Jose Garrick [facility] () [facility] CBC (HEMOGRAM ONLY) 2020-05-29 09:56:00 Juan Jose Garrick [facility] MAGNESIUM 2020-05-29 09:56:00 Juan JoseGarrick [facility] GLUCOSE-STAT LAB 2020-05-29 09:08:16 Oliveros, [facility] HGB/HCT (H&H) - STAT 2020-05-29 09:08:16 Oliveros, [facility] RRL CRITICAL LABS 2020-05-29 09:08:16 Oliveros, [facility] es - (ABG,NA,K,H&H,GLUCOSE) Medical C enter BLOOD GAS, ARTERIAL 2020-05-29 09:08:16 Oliveros, [facility] SODIUM NA-STAT LAB 2020-05-29 09:08:16 Oliveros, [facility] POTASSIUM-STAT LAB 2020-05-29 09:08:16 Oliveros, [facility] TISSUE EXAM 2020-05-29 08:36:00 Justo Fitzgerald [facility] POTASSIUM-STAT LAB 2020-05-29 08:13:30 Oliveros, [facility] GLUCOSE-STAT LAB 2020-05-29 08:13:30 Oliveros, [facility] HGB/HCT (H&H) - STAT 2020-05-29 08:13:30 Oliveros, [facility] RRL CRITICAL LABS 2020-05-29 08:13:30 Oliveros, [facility] es - (ABG,NA,K,H&H,GLUCOSE) Medical C enter BLOOD GAS, ARTERIAL 2020-05-29 08:13:30 Oliveros, [facility] CALCIUM, IONIZED 2020-05-29 08:13:30 Oliveros, [facility] SODIUM NA-STAT LAB 2020-05-29 08:13:30 Oliveros, [facility] ENDARTERECTOMY,CAROTID 2020-05-29 07:00:00 [facility] TYPE AND SCREEN, 2020-05-29 06:47:00 [facility] AUTOMATED [facility] POCT-GLUCOSE METER 2020-05-29 06:26:00 [facility] TYPE AND SCREEN, 2020-05-21 12:40:00 Anton [facility] AUTOMATED [facility] CBC W/PLT COUNT & AUTO 2020-05-21 12:40:00 [facility]ont[facility]omas [facility] DIFFERENTIAL [facility] CBC W/PLT COUNT & AUTO 2020-05-21 12:40:00 Anton [facility] BASIC METABOLIC PANEL 2020-05-21 12:40:00 Anton [facility] () [facility] PROTHROMBIN TIME/INR 2020-05-21 12:40:00 Anton [facility] ECG 12-LEAD 2020-05-21 12:15:22 Debontthomas [facility] ECG 12-LEAD 2020-05-21 12:15:22 Unknown, Hl7 Doctor [facility] Plan of Care Planned Activity Planned Date Details Comments Source Future Scheduled 2023-05-31 Lipid panel [facility] Test 00:00:00 (procedure) [code = [facility] 09331979] Future Scheduled 2021-06-14 CT CHEST HIGH Expected: [facility] Test 00:00:00 RESOLUTION WO 06/14/2021, of Medicine CONTRAST [code = Expires: 99683-3] 03/17/2022 Future Scheduled 2021-03-17 Screening for [facility] Test 10:38:11 malignant neoplasm of of Med icine colon (procedure) [code = 424928085] Future Scheduled 2021-03-17 COVID-19 Vaccine (1) [employer] Test 10:38:11 [code = COVID-19 of Medicine Vaccine (1)] Future Scheduled 2021-03-17 TETANUS SHOT (ADULT) [employer] Test 10:38:11 [code = TETANUS SHOT of Medi cine (ADULT)] Future Scheduled 2021-03-17 BMI FOLLOW UP PLAN [employer] Test 10:38:11 [code = BMI FOLLOW UP of Med icine PLAN] Future Scheduled 2021-03-17 Hepatitis C screening [employer] Test 10:38:11 (procedure) [code = of Medic ine 118153981] Future Scheduled 2021-03-17 ZOSTER VACCINE (1 of [employer] Test 10:38:11 2) [code = ZOSTER of Medicin e VACCINE (1 of 2)] Future Scheduled 2021-03-17 MEDICARE AWV [facility] [employer] Test 10:38:11 (Initial) [code = of Medicin e MEDICARE AWV (Initial)] Future Scheduled 2021-03-17 Abdominal aortic [facility] Test 10:38:11 aneurysm screening of Medici ne (procedure) [code = 341051412] Future Scheduled 2021-03-17 Pneumococcal 65+ (1 [employer] Test 10:38:11 of 1 - PPSV23) [code of Medi cine = Pneumococcal 65+ (1 of 1 - PPSV23)] Future Scheduled 2021-03-17 FLU VACCINE > 6 [facility] Test 10:38:11 MONTHS [code = FLU of Medici ne VACCINE > 6 MONTHS] Future Scheduled 2021-03-17 FALL SCREEN [code = [employer] Test 10:38:11 FALL SCREEN] of Medicine Future Scheduled 2021-02-15 Screening for [facility] Test 18:55:07 malignant neoplasm of of Med icine colon (procedure) [code = 374801912] Future Scheduled 2021-02-15 Pneumococcal 65+ (1 [employer] Test 18:55:07 of 2 - PPSV23) [code of Medi cine = Pneumococcal 65+ (1 of 2 - PPSV23)] Future Scheduled 2021-02-15 COVID-19 Vaccine (1) [employer] Test 18:55:07 [code = COVID-19 of Medicine Vaccine (1)] Future Scheduled 2021-02-15 TETANUS SHOT (ADULT) [employer] Test 18:55:07 [code = TETANUS SHOT of Medi cine (ADULT)] Future Scheduled 2021-02-15 BMI FOLLOW UP PLAN [employer] Test 18:55:07 [code = BMI FOLLOW UP of Med icine PLAN] Future Scheduled 2021-02-15 Hepatitis C screening [employer] Test 18:55:07 (procedure) [code = of Medic ine 532560597] Future Scheduled 2021-02-15 ZOSTER VACCINE (1 of [employer] Test 18:55:07 2) [code = ZOSTER of Medicin e VACCINE (1 of 2)] Future Scheduled 2021-02-15 MEDICARE AWV [facility] [employer] [employer] Test 18:55:07 (Initial) [code = of Medicin e MEDICARE AWV (Initial)] Future Scheduled 2021-02-15 Abdominal aortic [facility] Test 18:55:07 aneurysm screening of Medici ne (procedure) [code = 533419855] Future Scheduled 2021-02-15 FALL SCREEN [code = [employer] Test 18:55:07 FALL SCREEN] of Medicine Future Scheduled 2021-02-15 FLU VACCINE > 6 [facility] Test 18:55:07 MONTHS [code = FLU of Medici ne VACCINE > 6 MONTHS] Future Scheduled 2021-02-12 US VENOUS LEG 1 Occurrences [facility] [employer] Test 09:58:15 BILATERAL [code = starting of Medicin e 88851] 02/12/2021 until 02/12/2022 Future Scheduled 2021-02-12 COMPLETE PFT WITH 1 Occurrences [employer] Test 09:56:59 BRONCHODILATOR [code starting of Medi cine = 84101] 02/12/2021 until 02/12/2022 Future Scheduled 2021-02-12 SIX MINUTE WALK TEST 1 Occurrences [employer] Test 09:56:59 [code = 70637] starting of Medicine 02/12/2021 until 02/12/2022 Future Scheduled 2021-02-12 CT CHEST HIGH 1 Occurrences [facility] [employer] Test 09:56:59 RESOLUTION WO starting of Medicine CONTRAST [code = 02/12/2021 until 65976-9] 02/12/2022 Diagnostic Test 2021-02-12 ECHO,COMPLETE WITH Expected: [facility] Pending 00:00:00 SALINE [code = 02/12/2021, of Medicine 12902-2] Expires: 02/12/2022 Future Scheduled [address] [facility] Test 00:00:00 WELLNESS (YEAR 2 or Medical Center FIRST YEAR if no IPPE) [code = MEDICARE ANNUAL WELLNESS (YEAR 2 or FIRST YEAR if no IPPE)] Future Scheduled 2021-02-[address] [facility] - Test 00:00:00 (12+) [code = Medical Center DEPRESSION SCREENING (12+)] Future Scheduled 2021-02-07 FALLS RISK SCREENING [facility] - Test 00:00:00 [code = FALLS RISK Medical C enter SCREENING] Future Scheduled 2021-01-28 COVID-19 VACCINE (1) [facility] 06:15:51 [code = COVID-19 Hospital VACCINE (1)] Future Scheduled 2021-01-28 COLONOSCOPY SCREENING [facility] Test 06:15:51 [code = COLONOSCOPY Hospital SCREENING] Future Scheduled 2021-01-28 SHINGLES VACCINES Method ist Test 06:15:51 (#1) [code = SHINGLES Hospit al VACCINES (#1)] Future Scheduled 2021-01-28 65+ PNEUMOCOCCAL [facility] Test 06:15:51 VACCINE (1 of 1 - Hospital PPSV23) [code = 65+ PNEUMOCOCCAL VACCINE (1 of 1 - PPSV23)] Future Scheduled 2021-01-28 INFLUENZA VACCINE Method ist Test 06:15:51 [code = INFLUENZA Hospital VACCINE] Future Scheduled 2020-10-[address] [facility] - Test 00:00:00 (Season Ended) [code Medical Center = INFLUENZA VACCINE (Season Ended)] Future Scheduled 2020-10-[address] [facility] - Test 00:00:00 (#1) [code = Medical Center INFLUENZA VACCINE (#1)] Future Scheduled 2020-08-[address] [facility] Test 00:00:00 [facility] Medical Center (procedure) [code = 10714443] Future Scheduled 2020-08-[address] [facility] Test 00:00:00 measurement Medical Center (procedure) [code = 20493052] Future Scheduled 2020-02-09 PNEUMOCOCCAL 65+ YRS [facility] - Test 00:00:00 (1 of 1 - Medical Center [id number]_Lvrzvwn PCV13) [code = PNEUMOCOCCAL 65+ YRS (1 of 1 - [id number]_Bjeluit PCV13)] Future Scheduled 2020-02-[address] [facility] - Test 00:00:00 aneurysm screening Medical C enter (procedure) [code = 154174325] Future Scheduled 2020-02-09 PNEUMOCOCCAL 65+ YRS [facility] - Test 00:00:00 (1 of 1 - Medical Center HHXW52_Avshghi PCV13) [code = PNEUMOCOCCAL 65+ YRS (1 of 1 - HOCP23_Xozjxil PCV13)] Future Scheduled [address] [facility] Test 00:00:00 (WELCOME TO MEDICARE) [facility] [code = Medicare IPPE (WELCOME TO MEDICARE)] Future Scheduled 2005 SHINGLES VACCINES ([address] [facility] - Test 00:00:00 of 2) [code = Medical Center SHINGLES VACCINES (1 of 2)] Future Scheduled [address] [facility] Test 00:00:00 [facility] lung (procedure) [code = 796236781] Future Scheduled 2005 SHINGLES VACCINES ([address] [facility] - Test 00:00:00 of 2) [code = Medical Center SHINGLES VACCINES (1 of 2)] Future Scheduled 1974 DTAP/TDAP/TD VACCINES [facility] Test 00:00:00 (1 - Tdap) [code = Medical C enter DTAP/TDAP/TD VACCINES (1 - Tdap)] Future Scheduled 1974 DTAP/TDAP/TD VACCINES [facility] Test 00:00:00 (1 - Tdap) [code = Medical C enter DTAP/TDAP/TD VACCINES (1 - Tdap)] Future Scheduled 1973 HEPATITIS C [facility]CRE[facility]ING [facility] Test 00:00:00 [code = HEPATITIS C Medical Center SCREENING] Future Scheduled 1973 HEPATITIS C [facility]CRE[facility] Test 00:00:00 [code = HEPATITIS C Medical Center SCREENING] Future Scheduled 1967 COVID-19 VACCINE (1) [facility] - Test 00:00:00 [code = COVID-[address] VACCINE (1)] Future Scheduled 1967 COVID-19 VACCINE (1) [facility] - Test 00:00:00 [code = COVID-[address] VACCINE (1)] Future Scheduled [address] DIABETIC EYE EXAM [facility] - Test 00:00:00 [code = DIABETIC EYE Medical Center EXAM] Future Scheduled [address] [facility] Test 00:00:00 examination Medical Center (regime/therapy) [code = 990362576] Future Scheduled 1965 Urine screening for [facility] - Test 00:00:00 protein (procedure) Medical Center [code = 171397780] Future Scheduled 1965 DIABETIC EYE EXAM [facility] - Test 00:00:00 [code = DIABETIC EYE Medical Center EXAM] Future Scheduled [address] [facility] Test 00:00:00 examination Medical Center (regime/therapy) [code = 612301664] Future Scheduled 1965 Urine screening for [facility] - Test 00:00:00 protein (procedure) Medical Center [code = 490880568] Future Scheduled [address] [facility] - Test 00:00:00 malignant neoplasm of Medica l Center colon (procedure) [code = 363321699] Future Scheduled [address] [facility] - Test 00:00:00 malignant neoplasm of Medica l Center colon (procedure) [code = 746899816] Encounters Start End Encounter Admission Attending Care Care Encounter Source Date/Time Date/Time Type Type Clinicians Facility Department ID 2021-03-04 Outpatient [facility] [id number] 14:28[id number] 2021-03-04 Outpatient [facility] [id number] 14:22:49 [id number] [facility] 2020-11-15 Inpatient COUNTS INCLUDE 234 BEDS AT THE [facility] Surgery [id number] [facility] 13:49:41 JUSTO 2020-10-24 Outpatient SYSTEM, MDA MDA [id number] 13:50:10 PROVIDER Raul hoffman 2020-07-04 Outpatient SYSTEM, MDA MDA [id number] 11:35:20 PROVIDER Raul hoffman 2021-03-17 2021-03-17 Office RoloKENDRICK solorzano [id number] [facility] 10:00:00 11:00:00 Visit Dipaben AMBULATOR 350.1.13.21 [facility] 0.2.7.2.686 of [id number] Medi renzo 315 e 2021-03-17 2021-03-17 Outpatient [facility] [id number] [facility] 08:51:36 10:58:00 Belkis guzman of Medicin e 2021-02-26 2021-02-26 Outpatient EL GEDELROYNER, MDA MDA [id number] 10:34:24 23:59:00 DEMETRIS hoffman 2021-02-26 2021-02-26 Outpatient EL LAVKEN, MDA MDA [id number] 13:18:39 14:46:25 JESSY hoffman 2021-02-26 2021-02-26 Outpatient EL LOULOU, MDA MDA [id number] 10:33:31 10:33:31 DEMETRIS hoffman 2021-02-26 2021-02-26 Outpatient EL ARISTEO, MDA MDA [id number] 09:30:00 10:32:00 ADAM hoffman 2021-02-26 2021-02-26 Outpatient EL LUISA, MDA MDA [id number] 10:03:42 10:03:42 SILVANA hoffman 2021-02-24 2021-02-24 Outpatient ROSA, [facility] SLE [id number] SLE 11:01:01 23:59:00 FID 2021-02-24 2021-02-24 [facility] Clemjoann Addie Dina [facility] [id number] [facility] 11:00:00 23:59:00 [facility] 2021-02-19 2021-02-19 Outpatient CONTRERAS BERMEO [facility] [id number] [facility] 12:24:04 15:26:11 Colleg e of Medicin e 2021-02-19 2021-02-19 Outpatient CONTRERAS BERMEO [facility] [id number] [facility] 12:23:46 15:24:53 Colleg e of Medicin e 2021-02-17 2021-02-17 Outpatient [facility] [id number] [facility] 11:37:41 11:37:41 Colleg e [facility] Medicin e 2021-02-17 2021-02-17 [facility] [id number] 00:00:00 00:00:00 Orders Alistair Stout [facility] 2021-02-13 2021-02-13 [facility] [id number] 00:00:00 00:00:00 Orders Addie Smith [facility] 2021-02-12 2021-02-12 Office JAMILA Lee [id number] [facility] 09:00:00 13:44:54 Visit Fidaa AMBULATOR 350.1.13.21 College Y 0.2.7.2.686 [id number] Medi renzo 315 e 2021-02-06 2021-02-06 Outpatient Samanta HIG[facility]INS [facility] [id number] Univers 09:00:00 09:00:00 [facility] [id number] 2020-12-18 2020-12-18 Outpatient Samanta JO[facility] [id number] Univers 10:00:00 10:00:00 AKIKO [id number] prudencioy o f [facility] 2020-12-18 2020-12-18 Outpatient Samanta JO[facility] [id number] Univers 10:00:00 10:00:00 AKIKO flanneryy o f [facility] 2020-12-01 2020-12-01 Outpatient LEEANNE GALEANO MDA, MDA [id number] 10:32:56 14:29:07 Raul hoffman 2020-11-24 2020-11-24 Outpatient CAITLIN AVNEGAS MDA [id number] 09:08:01 23:59:00 Raul o n 2020-11-24 2020-11-24 Outpatient EL MDA MDA [id number] MD 11:28:59 11:28:59 Raul o n 2020-11-24 2020-11-24 Outpatient EL GUILHERME MORAN MDA [id number] MD 09:59:02 11:13:01 MERGED WITH [facility] Raul o n 2020-11-14 2020-11-14 Outpatient EL LEEANNE LUTHER MDA MDA [id number] 13:06:13 13:06:13 Raul o n 2020-11-14 2020-11-14 Outpatient EL MDA MDA [id number] MD 10:35:53 11:41:36 Raul o n 2020-11-08 2020-11-08 Outpatient EL MDA MDA [id number] 02:03:23 02:03:23 Raul o n 2020-10-28 2020-10-28 Orders Doctor VANDANA [id number] 00:00:00 00:00:00 Only Unassigned, REMI 350.1.13.10 ity of [place] [facility] 4.2.7.2.686 Lencho as [id number] [facility] [address] 2020-10-18 2020-10-23 Inpatient UR GUILHERME MORAN Leukemia [id number] MD 02:47:00 20:42:00 MERGED WITH [facility] Raul o n 2020-10-22 2020-10-22 Inpatient EL MDA MDA [id number] MD 13:33:03 14:25:24 Raul o n 2020-10-22 2020-10-22 Inpatient EL MDA MDA [id number] MD 12:32:54 14:25:20 Raul o n 2020-10-20 2020-10-20 Inpatient EL JAILENE BONILLA MDA MDA [id number] 09:52:51 10:12:28 Raul o n 2020-10-20 2020-10-20 Inpatient JAILENE HU MDA MDA [id number] MD 09:16:34 10:12:06 Raul o n 2020-10-19 2020-10-19 Inpatient JAILENE HU MDA MDA [id number] 22:09:29 22:20:36 Raul o n 2020-10-19 2020-10-19 Inpatient JAILENE HU MDA MDA [id number] 19:48:36 20:54:53 Raul o dal[place] 2020-06-23 2020-06-23 Outpatient CAITLIN SORENSEN MDA MDA [id number] 13:20:00 23:59:00 JUAN hoffman 2020-06-23 2020-06-23 Outpatient CAITLIN PARADA MDA MDA [id number] 09:30:00 13:19:00 NASEEM Raul o [place] 2020-06-23 2020-06-23 Outpatient CAITLIN MORAN MDA MDA [id number] 08:33:20 10:11:09 SILVANA hoffman 2020-06-23 2020-06-23 Outpatient CAITLIN PARADA MDA MDA [id number] 06:51:35 09:29:00 NASEEM hoffman 2020-06-11 2020-06-11 Outpatient [facility] [id number] [facility] 00:00:00 00:00:00 JUSTO 2020-06-03 2020-06-03 Telephone Jordyn Dunn [facility] [id number] 00:00[facility]00 00:00:00 Girish [facility] 2020-05-29 2020-05-31 [facility] [id number] [facility] 06:10:00 13:25:00 Encounter Francis [place] 2020-05-29 2020-05-29 Anesthesia Nomi Overton [facility] [id number] 07:20:00 10:04:00 Event Venancio Burton [facility] 2020-05-29 2020-05-29 Surgery [facility] [id number] 07:30:00 09:45:00 [facility] 2020-05-28 2020-05-28 [facility] [id number] 11:35:00 23:59:00 Encounter [facility] 2020-05-28 2020-05-28 Outpatient [facility] SLE [id number] [facility] 00:00:00 00:00:00 2020-05-28 2020-05-28 Travel [facility] [id number] [facility] 00:[facility]00 00:00:00 [facility] 2020-05-28 2020-05-28 Abstract [place], [facility] [id number] 00:00:00 00:00:00 Margie Dickey [facility] 2020-05-21 2020-05-21 Office CAITLIN Fitzgerald [facility] [id number] 11:09:30 11:24:30 Visit [facility] 2020-05-21 2020-05-21 Outpatient MICHAEL ARZOLA SLE [id number] [facility] 00:00:00 00:00:00 JUSTO 2020-05-21 2020-05-21 Orders [facility] [id number] 00:00:00 00:00:00 Only [facility] 2020-05-21 2020-05-21 Travel [facility] [id number] [facility] 00:00:00 00:00:00 [facility] 2020-04-15 2020-04-15 Outpatient Samanta OVERTON [facility] [id number] Univers 14:00:00 14:00:[id number] [facility] 2020-04-15 2020-04-15 Outpatient Samanta O[facility] [id number] Univers 14:00:00 14:00:[address] [facility] 2020-01-02 2020-01-02 Outpatient CAITLIN MORAN MDA MDA [id number] 07:30:00 23:59:00 NAVAL Raul o n 2020-01-02 2020-01-02 Outpatient EL DAVER, MDA MDA [id number] 09:20:44 10:25:29 NAVAL Raul o n 2019-12-12 2019-12-12 Tarik Overton [facility] [id number] 00:00:00 00:00:00 Mari Pemberton 350.1.13.10 [place] [id number] Profflorio [id number] nal 220 [facility] 2019-12-05 2019-12-05 [facility] [id number] 14:07:04 15:07:40 Visit Mari Crabtree 350.1.13.10 [place] 4.2.7.2.686 Profrosana [id number] nal 220 [facility] 2019-12-05 2019-12-05 [facility] [id number] Univers 14:00:00 14:00:00 MARI [id number] ity [facility] 2019-12-05 2019-12-05 [facility] [id number] Univers 14:00:00 14:00:[address] [facility] 2019-12-05 2019-12-05 Orders Doctor VANDANA [id number] 00:00:00 00:00:00 Only Unassigned, REMI 350.1.13.10 [place] [facility] 4.2.7.2.686 [id number] 2019-10-01 2019-10-01 Outpatient R [facility] [id number] Univers 10:40:00 10:40:[id number] [facility] 2019-10-01 2019-10-01 Outpatient R WESLEY [facility] [id number] Univers 10:40:00 10:40:[address] [facility] 2019-09-25 2019-09-25 [facility] [id number] Univers 11:30:00 11:30:00 [facility] [id number] [facility] 2019-09-25 2019-09-25 [facility] [id number] Univers 11:30:00 11:30:00 [facility] 2019-09-05 2019-09-05 Outpatient CAITLIN PARADA MDA MDA [id number] 10:00:00 23:59:00 NASEEM hoffman 2019-09-05 2019-09-05 Outpatient CAITLIN MORAN MDA MDA [id number] 09:04:44 10:45:55 SILVANA hoffman 2019-09-05 2019-09-05 Outpatient CAITLIN PARADA MDA [facility] [id number] 07:35:44 09:59:00 NASEEM hoffman 2019-07-10 2019-07-10 Outpatient Samanta [facility] [id number] Univers 09:00:00 09:00:00 MARI dial [facility] Results Test Description Test Time Test Comments Results Result Sourc e Comments PV, VENOUS DOPPLER 2021-02-24 Reason for LEGS, BILATERAL 13:10:00 exam:->Post-COV ID-19 condition [facility] 1955 Sex: M *FINAL REPORT TECHNIQUE: Grayscale, color Doppler, and spectral Doppler ultrasound of the bilateral lower extremity veins. INDICATION: Ywaa-LZVBJ-19 condition. COMPARISON: None. FINDINGS:The bilateral common femoral, superficial femoral, proximal deep femoral, proximal great saphenous, and popliteal veins are patent with normal waveforms and without echogenic filling defects. Visualized portions of the veins below the knee are also patent. All of the veins that could be examined with compression maneuvers are normally compressible. Normal pulsed wave Doppler response in the common femoral vein with calf augmentation. Diffuse bilateral subcutaneous edema. IMPRESSION: No deep venous thrombosis in the bilateral lower extremity veins. Signed: Talia Ramos MDReport Verified Date/Time: 02/24/2021 13:10:09 Tissue Exam 2020-06-03 17:13:00 Test Item Value Reference Range Interpretation Comme nts Case Report (test code = 104) Surgical Pathology Report Case: [id number] Authorizing Provider: Justo Fitzgerald, Collected: 05/29/2020 08:36 AM Ordering Location: [facility] Received: 05/29/2020 10:20 AM PERIOPERATIVE SERVICES Pathologist: Herb Ramsey MD Specimen: Plaque, Right carotid artery plaque DIAGNOSIS (test code = 3220) g8ecpALnSHYql7txEOUrpOXnJmPrBbDgJoClFm pc dWMxIHtccnRmMVxlcGljOTIwMlxhbnNpXHNwbHRw E1MfgzpwWPwbMN9oDN3guJawtWJxqMSvVDCoSjDi b5pvn404tNDan2dxGBLNhjcthHw5aMkiN40ar5N6 DbdoU51exNAiDSbzjPMdmmqfvuFsKTHSVIFDFBac PNYWEZLQANEVKFrHGZIUDiBFCdNDFaQMQK6JHQvu tTJoAJTSCRVWTawZFDYNDCUFH7EJLDRVY8ETLeCV YNXPFILemTHiNAxFWDsHVYuzLpyTKpeDQJINHq4N RhPREOOdlt79VBM2ZcCnd2V4LXL4HMJvGDBld5mn MBVrrYRvLcXaLlXcYpUdHlrtcUInVRThBxYni7ua u889aAKgo1mmKPEsEhK1hKClEJSsjJXoG960GRGk ZGdkj9zvh4ImLBRryLOwl3Z2EDBTyauiwRb8lKld T21nw9J9HyolD7txTPPgNJWeY4HsHV0dYYWsUlx7 CCW4WKT0WTTnGTEnB7WqDE2pWOXhhQAxEKd8d4af yIwvKLVsYQK8e2mdZLlozgEfHE9mxm2dhFd7i0hg uiRxDSQpLHDlcJITYRAeN7SejYakNp8jsTk5kKyn YonlYLI5Pqi1IE2gbh88dyi9tVzgMVCbajbxXlO4 VIrjQEFqpnyuMWh7DXwzETHfnNH8FNGpcIHxZ5Id KTXyZE7yxyy2BJT8BXxcHSXmBbM9TMGblKGdEJRz sCpgKIyuk166QZZ1NqXjPX9cG8Lrf1R5mT9nzPIo SITqyLFgUxQgLFLtkb1loYEoOLgok6RfZAP6sjO5 iPPfpJRgOAWjOyA7WNerLM2mdj27CJRyBDQ1fz7t yYHouExoryWurAIeIBdxF4NjGXXyy065APNcW4Pq TUWlr6P3esLoCuYzEHMltWA9ttD5ISEfXV5hbyrp a5eqMNnjYSfhITQmapO9edH8EBJjeAAcC0UcdI5a IYAsOE5wlvvsh8opQQG0UHsoNMKyENV6NdRdKCTd r9Qhkth6ReZzo1QeeAYbHOyaE58so563PQDeecUh H8rgeTYbkdyleXBpsbglGGanrvB8ZLRpZDdizssg DINeBHoaN2gvNmQuOJNktCnaHVoiy4MoIDWzYZXk JwRgqERiTBJxKhp8LWWmuSXyQGVxDxGnO2ekisvh FwPYNVZig4akW7cprARZeSGzP1NdYYbyslKsXTxj IXjvYZAaMVY4GO50NgttSRScnn56 CPT Code(s) (test code = 3357) z9gnpRVdZOGwhBB2BjFeSINev5vjw0MjwTKs cGFy TZkbmWEaujLxkt54iKI1eK68VT2aFQCkHdL0CWHa zfK9Uoe6SSZoQAPpaUGyX275j2imf1uwisMkmBL8 tNsyRICoONPaTRysFXEkRyDwJQnuHXT7BLx2NcDj XHBhcn0= CLINICAL HISTORY (test code = 3356) e0uhyONzCZFurOR3DlNmJSWfq5wao5D sdHBncGFy LAgbsWQjnaGzrk44nAI2kB49EK3xVRTrUbE3FDTb hyW7Vod4AZQtJPSmvILdL630t0aci0gogaLlnVD7 cTvoSBBtRFYiVHnuSGOqYySwD6Kuxn5arJCgi3Jy nucjrUFyF3Rnf5JcFWZvrdWbgeoqAIXben4= SPECIMEN SOURCE (test code = 3377) z2dxqQJeHVOdeYJ4VfNgAENqj9ath1Qp dHBncGFy MQwtkQCqscWjin88eGF7qO93VR1hODPpJqA3UIBu ylI8Ndn8AUHpHIRhxCPvD088h6ufv4povoNinRG4 fVxwYXJkXHBsYWluXGZzMjAgUGxhcXVlXHBhcn0= GROSS DESCRIPTION (test code = 3366) i4bzzEZdOHLutFBiByFeWYDbEEXna0 lcZGVmbGFu [file] YXIgUGlsYXIgQXJndWVsbGVzLCBQQSwgSFQgKEFT A7SfLYSzsq3= MICROSCOPIC DESCRIPTION (test code = s2uevMScVWBzmHF2IaVvVTLsk6lvu7 BsdHBncGFy 3371) SOihkGLosuOngk49uQW1iL59LX3eCXQlQoN7JUJb vlR4Tck0ZAOnZATarOFgZ603l2rmx7mkrvHnlOZ2 tRgnDSLtEGSsRSxvFKQxZlQxOHJaPy8qtJMrXTLc cn0= [facility] [id number] 17:13:00 Test Item Value Reference Range Interpretation Comments Case Report (test code Surgical Pathology = 104) Report Case: [id number] Authorizing Provider: Justo Fitzgerald, Collected: 05/29/2020 08:36 AM Ordering Location: [facility] Received: 05/29/2020 10:20 AM PERIOPERATIVE SERVICES Pathologist: Herb Ramsey MD Specimen: Plaque, Right carotid artery plaque DIAGNOSIS (test code = z7rmwPRpDZYdv4seTZHyiMD 3220) uZzEwMzNcZnRuYmpcdWMxIH tccnRmMVxlcGljOTIwMlxhb cEhGRKeqLPmK9KhhrhcPSng WS9qAI5wnNdnwZTpdMCjDVE tHdNzy1ole188oCMvx5vuKM TSffmdxEv1bVojW86od3F1S ofwP71mdGUlWDkbsSLxokfn czIwIEFSVEVSWSwgTEVGVCB DQVJPVElELCBFTkRBUlRFUk WDXC7VGJjizYVwVLXSXSTQE cuHMJWVJQVMY9GWUKTFH4FN QyBQTEFRVUVccGFyIExVTUl DWUrsVpjRPunGDKUGGx9VJu JXJUWfap57ZIR4IkMse0K2A MJ8NITaEHGvz0agLFPvwHIv ZzEwMzNcZnRuYmpcdWMxXGR rVhHbu4fuz226rUVpm5pzKT TsBwW9yRWnCLPmzIMjG070S NLbEAwos2gim4JpQLNcuKNz v2M2NUFVvefgmRq3oXddA29 ue8E5WwktJ7eoZBVyLGHpC4 ZgGV8rWJBrQir8MNK2NDJ9H TRsMDMwP1RdEI7pGLYeeOIl BPh7m2tjsCiwWSPhIPI7r9y tRUqpinSiAA2rqt7jdIw9u3 xjczEgRGVmYXVsdCBQYXJhZ 9SrlLrfBq3abVf8zKahYgpq NHA9Zxt6ET9rri05qbv9vAe tINHblpflKbW3UKkzHHIjvc ljOFz5TZzpKWQpdKG0FUKyj MSwZ0ExULBdUN3esnm9RVO7 KOgfQJXzOxB7LEXhzZLmWDF pbUmkZIctf812MLJ6AvDkYD 4jH3Nxq9R7jW5ueHZbFUFbw BKdEzXkVJBhkf9xoVJoMHld b5MbLGC7uiL3cFKcnZLdNRD wFwF3BJpbTN8xhk11BENgHP S3cm8kuVGrgZeqnwWsxWJkM RttX5ZaXXHvv622TNKiN8Fp XNMkc5U8ymUkTlXcHEZcjJQ 8usD4JRZsJQ8ynxdpi8ztJA qrLFfyLOCodvE4yqY1FDMmd TRsD0YvjR0dPHXpUZ5wzyav y0cdYZK7EQhxPKVxDYJ7HjE rRAIfn6Gpzvb0CxWxs8XjmM OaUNncX07mo335AKCfgbLeP 1xwbGFpblxwbGFpblxmMFxm beV5ELIbRWvvukqlEUCaYDt iD9siOxSoMHMdtCyuAWzdf7 NoXGYxXGZzMjJcdGFiXHRhY ce4THIgbTJdMNOtUvDsV2ty katzIpRIRSIsn8dpD4ilcZR KpDWwB9PkFKtmyhMnLIaeMT oyMUSnMBQ5PO40SwjwWHHmk n19 CPT Code(s) (test code x3xgsKCzCJEgyAV6GhFrPUC = 3357) xu5qqe5FgkGAwzZZkVSxtgF IvdgGbto00hWF5pI44UE0vK ISyCdE6JEPuocS1Mzd0KIVr TCPzlJZeU466q3pzx6fqdbS aoZN5fWfaZJCwLEAqGZyeOT XyPpJdOAjrWAN8KKw3ByLnK HBhcn0= CLINICAL HISTORY (test g9jzqMFvWWXkxOM5YsOpQUP code = 3356) dw9ezp3IlbXKurTFdJVdbyP EcxxSkku13hVH0sY63RX5wG XBbRkC2BKGfrrF9Mur0OCKs ZTHpzOUtB518f8rfx7whytC hnVW8tVbsUXExVIQzFLvtAI MwJoXzJ0Giwp9fbXQuj5Dsy muqfNPhN1Uyl5QiKFNhysAk cnkgXHBhcn0= SPECIMEN SOURCE (test d1mxyHAhSQJyoOS7AbDvRNV code = 3377) hh6vpw1JvfDUpyAQkVAmylN XqiuMvub10bKO6nC38CC3nO TVpQkI5KKHcvvC1Ezv2CZHh UPNhcLNsK267x8htb5rlnsX ymGJ1oAsaEREaXLTjIHffHO ZzMjAgUGxhcXVlXHBhcn0= GROSS DESCRIPTION z4upaLVbCEHztKRnJjFcRRQ (test code = 3366) kPIOvb0vuPVUyiKUgBkYtRx NcZnRuYmpcdWMxXGRlZmYwe 3dwv734tFDwm0qeSNOxTzS8 mEBtSNWirNMmH963c3php5w nmlEueYJ9JZFpRLV1TPvipt CbvfC3QRsalKBrFrN5QGuga tCkDJqcmjDnvaCrEgy5NOSj H168SVK7wGvix0ezOTQ6QHG gQAGyPhWjCy6gtXGaS808JI UbYPJLUMNkbWl0EZUsijCrc qIisNUEm291G794b4rpGYSz inSxrKmMqoeyv6qyA218YKR hcGVydzEyMjQwXHBhcGVyaD B9OHUcQA2fzfmlNvNxSO8fi kesIkShUW7dkva1WzGcXB2g cmdiNzIwXGhlYWRlcnkwXGZ pr9VitearJM8bK0Gdh4M4kC 9maXRcZGVmdGFiNzIwXGZvc z3znJBiNLrni7MaQLV0koF4 mWBqpBDuZSLgFX42Dbchx0E vRcekJNM6SYNkdvHxa3Lma9 daDoTcptEfY1njD0RsQUYiW DIzDEAlFaBdqdZbz4Jbh8Bo dRLfkLa1h0msAPWiOVCreAb wo9qaLBR8FGDcV2O5vTWak3 pxXMagGBLwwJE5rgrnCGalH XExuwV7uaimQTwyZCEnhXS4 wscjIRexJUFwFrX0kcaoWYp yIQNhTGV8SJcmu364CDK6ZQ xzYmtwYWdlXHBnbmNvbnRcc GduZGVjXHBsYWluXHBsYWlu XGYwXGZzMjRccWxccGxhaW5 bJySzGgEjDDjpEM7bJDVnA6 tqqSFrKZBvTGAlD7kpDpIrb K9wvGzvEKkxoxSaOOHjF4Hu dmVkIGZyZXNoIGxhYmVsZWQ gdGhlIHBhdGllbnQncyBuYW 7xLJHsQ1Jmo5Gtt85xtqVbO uKcYVWjWQAktsuhzOQcE1Ti l9EfFIOmgmNduuypdVqwfOH zDkMttaMjSWCfJXZ9MDWqKT L2GJWxVZJvkSLmW1ozNZmta XNvw6IxjDZtDEgkuXopkpJ0 uOX9dBFpRAHxe5SnvMz8XBN hbGNpZmllZCBwbGFxdWUuIC FEEUPgYWIebaParAx1TZQbR LR0rP7wikRyfrRss8DzeFe3 jJDvOHgyOZNqQNStyHrii2a uZyBkZWNhbGNpZmljYXRpb2 4uXHBhclxwYXIgUGlsYXIgQ XJndWVsbGVzLCBQQSwgSFQg UYNBO8KcOSGdhm7= MICROSCOPIC a5vzhOTbSFFiqFM7KtOwLEG DESCRIPTION (test code rd2wgf9JpuPOjjWZvZFjbdH = 3371) VhwdRspn61kGE2uF14FY5kJ DVoTyA5OUYpznP3Jkm1ZEJz XUBydTHvJ117l0rqe8xycmA vkKV6iKqbHTJiBMVdCMuwYS UgVtQgWWWfHu5guRAeWDKok n0= [facility] [id number] 17:13:00Surgical Pathology Report Case: [id number] Authorizing Provider: Justo Fitzgerald, Collected: 05/29/2020 08:36 AM [facility]ingLocation: [facility] Received: 05/29/2020 10:20 AM PERIOPERATIVE SERVICES Pathologist: Herb Ramsey MD Specimen: Plaque, Right carotid artery plaque ARTERY, LEFT CAROTID, ENDARTERECTOMY:CALCIFIC ATHEROSCLEROTIC PLAQUELUMINAL FIBRIN THROMBUS Signing Pathologist Direct Phone Line: [phone] signed by Herb Ramsey MD on 06/03/2020 at 5:13 [id number]; [id number] of right carotid artery PlaqueReceived fresh labeled the patient's name, accession number and "right carotid artery plaque" is a 2.0 x 2.4 x 0.4 cm aggregate of ross-yellow tubular, focally calcified plaque. Chemical Etch Operator sections are submitted in A1 following decalcification.ANA Velázquez, HT (ASC)PerformedPOC-Glucose [id number] 18:38:00 Test Item Value Reference Range Interpretation Comments POC-Glucose Meter (test 221 mg/dL 70-110 H : TE STED AT [facility] code = 1538) 67[address] [facility], [facility] 30: Force Variation Equipment Tender/Techni yu ID = [id number] for Renetta Mcpherson on Lab Interpretation (test Abnormal code = 66304-7) [facility] [id number] 18:38:00 Test Item Value Reference Range Interpretation Comments POC-Glucose Meter (test 221 mg/dL 70-110 H : TE STED AT [facility] code = 1538) 67[address] [facility], 770 30: Force Variation Equipment Tender/Techni yu ID = [id number] for Renetta Mcpherson on Lab Interpretation (test Abnormal code = 91417-0) [facility]CT[facility] [id number] 18:38:00 Test Item Value Reference Range Interpretation Comments POC-GLUCOSE METER 221 mg/dL 70-110 H : TESTED A T [facility] 6720 (BEAKER) (test code = [facility], 1538) [address]: Force Variation Equipment Tender/Techni yu ID = [id number] for Noel Hansen ECG 12 [id number] 08:37:12Interface, External Ris In - 06/01/2020 3:14 PM CDTVentricular Rate 70 BPMAtrial Rate 70 BPMP-R Interval 174 msQRS Duration 112 msQ-T Interval 438 msQTC Calculation(Bazett) 473 msP Quinton 47 degreesR Quinton -42 degreesT Quinton 120 degreesNormal sinus rhythm with sinus arrhythmiaLeft atrial enlargementLeft axis deviationInferior infarct (cited on or before 17-AUG-2017)Anterior infarct (cited on or before 22-AUG-2017)T wave abnormality, consider lateral ischemiaAbnormal ECGWhen compared with ECG of 21-MAY-2020 12:15,Premature ventricular complexes are no longer PresentQRS axis Shifted leftT wave inversionno longer evident in Inferior leadsT wave inversion less evident in Lateral leadsConfirmed by MD Cali Roberto ([id number]) on 05/31/2020 8:37:11 [facility] [id number] 21:19:00 Test Item Value Reference Range Interpretation Comments POC-GLUCOSE METER 246 mg/dL 70-110 H : TESTED A T [facility] 6720 (BEAKER) (test code = [facility], 1538) [address]: Force Variation Equipment Tender/Techni yu ID = [id number] for PE NATI, KANDACE POCT-GLUCOSE [id number] 17:21:00 Test Item Value Reference Range Interpretation Comments POC-GLUCOSE METER 197 mg/dL 70-110 H : TESTED A T [facility] 6720 (BEAKER) (test code = [facility] [employer] [facility], 1538) [address]: Force Variation Equipment Tender/Techni yu ID = [id number] for Sa patrick, Danna POCT-GLUCOSE [id number] 12:47:00 Test Item Value Reference Range Interpretation Comments POC-GLUCOSE METER 239 mg/dL 70-110 H : TESTED A T [facility] 6720 (BEAKER) (test code = [facility] [employer] [facility], 1538) [address]: Force Variation Equipment Tender/Techni yu ID = [id number] for MA LIMA, KRISTINE [id number] 10:57:00 Test Item Value Reference Range Interpretation Comments RPR (test code = 36042-7) Nonreactive Nonreactive Lab Interpretation (test code = Normal 11813-6) [facility] CenterRPR[facility] 10:57:00 Test Item Value Reference Range Interpretation Comments RPR (test code = 48673-5) Nonreactive Nonreactive Lab Interpretation (test code = Normal 55235-4) [facility] CenterRPR[facility] 10:57:00 Test Item Value Reference Range Interpretation Comments RPR SCREEN (BEAKER) (test code = Nonreactive Nonreactive 420) TSH/Free T4 If Ophwdmhtu0528-53-54 09:20:00 Test Item Value Reference Range Interpretation Comments TSH (test code = 0.460 See_Comment [Automated 11140-7) message] The system which generated this result transmit david reference range : 0.350 - 4.940 uIU/mL. The reference range was not used to interpret this result as normal/abnormal . JENNA (test code = JENNA) Force Variation Equipment Tender ID - JAILENE C Lab Interpretation Normal (test code = 08213-6) [facility] CenterVitamin B12 and Iibibv4071-63-94 09:20:00 Test Item Value Reference Range Interpretation Comments Vitamin B12 (test 378 pg/mL 213-816 code = 2132-9) Folate (test code = 7.40 ng/mL See_Comment [Automa david 2284-8) message] The system which generated this result transmit david reference range : >=7.00. The reference range was not used to interpret this result as normal/abnormal . JENNA (test code = JENNA) Force Variation Equipment Tender ID - JAILENE C Lab Interpretation Normal (test code = 37675-1) [facility] CenterTSH/Free T4 If [id number] 09:20:00 Test Item Value Reference Range Interpretation Comments TSH (test code = 0.460 See_Comment [Automated 62571-7) message] The system which generated this result transmit david reference range : 0.350 - 4.940 uIU/mL. The reference range was not used to interpret this result as normal/abnormal . JENNA (test code = JENNA) Force Variation Equipment Tender ID - JAILENE C Lab Interpretation Normal (test code = 10912-0) [facility] CenterVitamin B12 and Mhimvj8939-75-10 09:20:00 Test Item Value Reference Range Interpretation Comments Vitamin B12 (test 378 pg/mL 213-816 code = 2132-9) Folate (test code = 7.40 ng/mL See_Comment [Automa david 2284-8) message] The system which generated this result transmit david reference range : >=7.00. The reference range was not used to interpret this result as normal/abnormal . JENNA (test code = JENNA) Force Variation Equipment Tender ID - JAILENE C Lab Interpretation Normal (test code = 86859-2) [facility] CenterTS/FREE T4 IF [id number] 09:20:00 Test Item Value Reference Range Interpretation Comments THYROID STIMULATING HORMONE 0.460 uIU/mL 0.350-4.940 (BEAKER) (test code = 772) Force Variation Equipment Tender ID - JAILENE CVITAMIN B12 AND [id number] 09:20:00 Test Item Value Reference Range Interpretation Comments VITAMIN B12 (BEAKER) 378 pg/mL 213-816 (test code = 774) FOLATE (BEAKER) 7.40 ng/mL See_Comment [Automated message] (test code = 362) The system which generated this result transmitted ref erence range: >=7.00. The reference range was not used to interpr et this result as normal/abnormal . Force Variation Equipment Tender ID - JAILENE CPOCT-GLUCOSE [id number] 08:53:00 Test Item Value Reference Range Interpretation Comments POC-GLUCOSE METER 261 mg/dL 70-110 H : TESTED A T [facility] 6720 (BEAKER) (test code = [facility] [place], 1538) [address]: Force Variation Equipment Tender/Techni yu ID = [id number] for KRISTINE BEAL Hemoglobin [id number] 08:39:00 Test Item Value Reference Range Interpretation Comments Hemoglobin A1C (test code = 4548-4) 14.5 % 4.3-6.1 H Lab Interpretation (test code = Abnormal 55052-3) [facility] CenterHemoglobin [id number] 08:39:00 Test Item Value Reference Range Interpretation Comments Hemoglobin A1C (test code = 4548-4) 14.5 % 4.3-6.1 H Lab Interpretation (test code = Abnormal 55139-7) [facility] CenterHEMOGLOBIN [id number] 08:39:00 Test Item Value Reference Range Interpretation Comments HEMOGLOBIN A1C (BEAKER) (test code = 14.5 % 4.3-6.1 H 368) Lipid [id number] 07:49:00 Test Item Value Reference Range Interpretation Comments Triglycerides (test 221 mg/dL Specimen code = 2571-8) slightly hemolyzed Cholesterol (test 215 mg/dL Specimen code = 2093-3) slightly hemolyzed HDL (test code = 30 mg/dL 5-9) LDL Calculated (test 141 mg/dL code = 77552-3) JENNA (test code = Triglyceride JENNA) Reference Range: Low Risk <150 Borderline 150-199 High Risk 200-499 Very High Risk >=500 Cholesterol Reference Range: Low Risk <200 Borderline 200-239 High Risk >240 HDL Cholesterol Reference Range: Low Risk >=60 High Risk <40 LDL Cholesterol Reference Range: Optimal <100 Near Optimal 100-129 Borderline 130-159 High 160-189 Very High >=190 Force Variation Equipment Tender [facility] - [facility] CenterLipid [id number] 07:49:00 Test Item Value Reference Range Interpretation Comments Triglycerides (test 221 mg/dL Specimen code = 2571-8) slightly hemolyzed Cholesterol (test 215 mg/dL Specimen code = 2093-3) slightly hemolyzed HDL (test code = 30 mg/dL 5-9) LDL Calculated (test 141 mg/dL code = 51249-3) JENNA (test code = Triglyceride JENNA) Reference Range: Low Risk <150 Borderline 150-199 High Risk 200-499 Very High Risk >=500 Cholesterol Reference Range: Low Risk <200 Borderline 200-239 High Risk >240 HDL Cholesterol Reference Range: Low Risk >=60 High Risk <40 LDL Cholesterol Reference Range: Optimal <100 Near Optimal 100-129 Borderline 130-159 High 160-189 Very High >=190 Force Variation Equipment Tender ID - [facility] CenterLIPID [id number] 07:49:00 Test Item Value Reference Range Interpretation [...] Borderline 130-159 High 160-189 Very High >=190 Force Variation Equipment Tender ID [facility]ENTERBasic Metabolic [id number] 07:08:00 Test Item Value Reference Range Interpretation Comments Sodium (test code = 138 meq/L 597-646 4258-2) Potassium (test code = 4.3 meq/L 3.5-5.1 Speci men slightly 2823-3) hemolyzed Chloride (test code = 103 meq/L 98-107 2074-0) CO2 (test code = 27 meq/L 2027-10) BUN (test code = 12 mg/dL 08-27 3094-0) Creatinine (test code 0.89 mg/dL 0.57-1.25 Specim en slightly = 2160-0) hemolyzed Glucose (test code = 268 mg/dL 70-105 H 2345-7) Calcium (test code = 8.5 mg/dL 8.4-10.2 73885-2) EGFR (test code = 86 mL/min/1.73 sq m [facility] [place] [address]-2) NOT ACCURATE CREATININE CLEARANCE IN PREDICTING GLOMERULAR FILTRATION RATE . ESTIMATED GFR I S NOT APPLICABLE FOR DIALYSIS PATIENTS. JENNA (test code = JENNA) Force Variation Equipment Tender ID - EDASI Lab Interpretation Abnormal (test code = 34442-7) [facility] CenterMagnesium2021-04-23 07:08:00 Test Item Value Reference Range Interpretation Comments Magnesium (test code = 1.7 mg/dL 1.6-2.6 Speci men 55544-8) slightly hemolyzed JENNA (test code = JENNA) Force Variation Equipment Tender ID - EDASI Lab Interpretation Normal (test code = 34021-0) [facility] CenterBasic Metabolic [id number] 07:08:00 Test Item Value Reference Range Interpretation Comments Sodium (test code = 138 meq/L 589-348 9795-2) Potassium (test code = 4.3 meq/L 3.5-5.1 Speci men slightly 2823-3) hemolyzed Chloride (test code = 103 meq/L 98-107 2074-0) CO2 (test code = 27 meq/L 2027-10) BUN (test code = 12 mg/dL 08-27 3094-0) Creatinine (test code 0.89 mg/dL 0.57-1.25 Specim en slightly = 2160-0) hemolyzed Glucose (test code = 268 mg/dL 70-105 H 2345-7) Calcium (test code = 8.5 mg/dL 8.4-10.2 74913-9) EGFR (test code = 86 mL/min/1.73 [place] [address]-0) NOT ACCURATE CREATININE CLEARANCE IN PREDICTING GLOMERULAR FILTRATION RATE . ESTIMATED GFR I S NOT APPLICABLE FOR DIALYSIS PATIENTS. JENNA (test code = JENNA) Force Variation Equipment Tender ID - EDASI Lab Interpretation Abnormal (test code = 55845-6) [facility] CenterMagnesium2021-04-23 07:08:00 Test Item Value Reference Range Interpretation Comments Magnesium (test code = 1.7 mg/dL 1.6-2.6 Speci men 84016-6) slightly hemolyzed JENNA (test code = JENNA) Force Variation Equipment Tender ID - EDASI Lab Interpretation Normal (test code = 15955-5) [facility] CenterMAGNESIUM2021-04-23 07:08:00 Test Item Value Reference Range Interpretation Comments MAGNESIUM (BEAKER) 1.7 mg/dL 1.6-2.6 Specimen slightly (test code = 627) hemolyzed Force Variation Equipment Tender ID - EDASIBASIC METABOLIC [id number] 07:08:00 Test Item Value Reference Range Interpretation [...] S NOT APPLICABLE FOR DIALYSIS PATIEN TS. Force Variation Equipment Tender ID - EDASICBC with platelet count + automated [id number] 06:33:00 Test Item Value Reference Range Interpretation Comments WBC (test code = 6690-2) 10.7 See_Comment H [A utomated message] The system [employer] generated this result transmitted ref erence range: 3.5 - 10 .5 K/L. The refe rence range was not u sed to interpret this result as normal/abnor mal. RBC (test code = 789-8) 5.20 See_Comment [Au tomated message] The system [employer] generated this result transmitted ref erence range: 4.63 - 6 .08 M/L. The refe rence range was not u sed to interpret this result as normal/abnor mal. MCHC (test code = 786-4) 32.6 See_Comment [A utomated message] The system [employer] generated this result transmitted ref erence range: [...] L [Aut omated message] 777-3) The system [employer] generated this result transmitted ref erence range: 150 - 45 0 K/CU MM. The referen ce range was not u sed to interpret this result as normal/abnor mal. MPV (test code = 11.7 fL 9.4-12.4 80486-4) nRBC (test code = 413) 0 See_Comment [Aut omated message] The system [employer] generated this result transmitted ref erence range: [...] H [Aut omated message] 670) The system [employer] generated this result transmitted ref erence range: 1.78 - 5 .38 K/L. The refe rence range was not u sed to interpret this result as normal/abnor mal. # Lymphs (test code = 2.96 See_Comment [Auto mated message] 414) The system [employer] generated this result transmitted ref erence range: 1.32 - 3 .57 K/L. The refe rence range was not u sed to interpret this result as normal/abnor mal. # Monos (test code = 0.58 See_Comment [Autom ated message] 415) The system [employer] generated this result transmitted ref erence range: 0.30 - 0 .82 K/L. The refe rence range was not u sed to interpret this result as normal/abnor mal. # Eos (test code = 416) 0.20 See_Comment [Au tomated message] The system [employer] generated this result transmitted ref erence range: 0.04 - 0 .54 K/L. The refe rence range was not u sed to interpret this result as normal/abnor mal. # Baso (test code = 417) 0.05 See_Comment [A utomated message] The system [employer] generated this result transmitted ref erence range: 0.01 - 0 .08 K/L. The refe rence range was not u sed to interpret this result as normal/abnor mal. Immature 0 % 0-1 Granulocytes-Relative (test code = 2801) Lab Interpretation (test Abnormal code = 37795-9) [facility] with platelet count + automated [id number] 06:33:00 Test Item Value Reference Range Interpretation Comments WBC (test code = 6690-2) 10.7 See_Comment H [A utomated message] The system [employer] generated this result transmitted ref erence range: 3.5 - 10 .5 K/L. The refe rence range was not u sed to interpret this result as normal/abnor mal. RBC (test code = 789-8) 5.20 See_Comment [Au tomated message] The system [employer] generated this result transmitted ref erence range: 4.63 - 6 .08 M/L. The refe rence range was not u sed to interpret this result as normal/abnor mal. MCHC (test code = 786-4) 32.6 See_Comment [A utomated message] The system [employer] generated this result transmitted ref erence range: 32.3 - 3 6.5 GM/DL. The refe rence range was not u sed to interpret this result as normal/abnor mal. Hematocrit (test code = 48.1 % 40.1-51.0 4544-3) MCV (test code = 787-2) 92.5 fL 79.0-92.2 H MCH (test code = 785-6) 30.2 pg 25.7-32.2 RDW (test code = 788-0) 13.1 % 11.6-14.4 Platelets (test code = 148 See_Comment L [Aut omated message] 777-3) The system [employer] generated this result transmitted ref erence range: 150 - 45 0 K/CU MM. The referen ce range was not u sed to interpret this result as normal/abnor mal. MPV (test code = 11.7 fL 9.4-12.4 88142-2) nRBC (test code = 413) 0 See_Comment [Aut omated message] The system [employer] generated this result transmitted ref erence range: [...] H [Aut omated message] 670) The system [employer] generated this result transmitted ref erence range: 1.78 - 5 .38 K/L. The refe rence range was not u sed to interpret this result as normal/abnor mal. # Lymphs (test code = 2.96 See_Comment [Auto mated message] 414) The system [employer] generated this result transmitted ref erence range: 1.32 - 3 .57 K/L. The refe rence range was not u sed to interpret this result as normal/abnor mal. # Monos (test code = 0.58 See_Comment [Autom ated message] 415) The system [employer] generated this result transmitted ref erence range: 0.30 - 0 .82 K/L. The refe rence range was not u sed to interpret this result as normal/abnor mal. # Eos (test code = 416) 0.20 See_Comment [Au tomated message] The system [employer] generated this result transmitted ref erence range: 0.04 - 0 .54 K/L. The refe rence range was not u sed to interpret this result as normal/abnor mal. # Baso (test code = 417) 0.05 See_Comment [A utomated message] The system [employer] generated this result transmitted ref erence range: 0.01 - 0 .08 K/L. The refe rence range was not u sed to interpret this result as normal/abnor mal. Immature 0 % 0-1 Granulocytes-Relative (test code = 2801) Lab Interpretation (test Abnormal code = 35789-9) [facility] W/PLT COUNT & AUTO [id number] 06:33:00 Test Item Value Reference Range Interpretation [...] PERCENT (BEAKER) (test code = 2801) POCT-GLUCOSE [id number] 21:35:00 Test Item Value Reference Range Interpretation Comments POC-GLUCOSE METER 212 mg/dL 70-110 H : TESTED A T [facility] 6720 (BEAKER) (test code = [facility], 153) [address]88: Force Variation Equipment Tender/Techni yu ID = [id number] for MO SELEXDELMER POCT-GLUCOSE [id number] 17:51:00 Test Item Value Reference Range Interpretation Comments POC-GLUCOSE METER 238 mg/dL 70-110 H : TESTED A T [facility] 6720 (BEAKER) (test code = [facility], 153) 94926: Force Variation Equipment Tender/Techni yu ID = [id number] for PH ILIP, SHELBY BASIC METABOLIC [id number] 17:13:00 Test Item Value Reference Range Interpretation [...] S NOT APPLICABLE FOR DIALYSIS PATIEN TS. [employer] Variation Equipment Tender ID - [id number] 16:00:00 Test Item Value Reference Range Interpretation Comments Glucose (test code = 2345-7) 233 mg/dL 70-105 H JENNA (test code = JENNA) Force Variation Equipment Tender ID - DB Lab Interpretation (test Abnormal code = 79103-0) [id number] 16:00:00 Test Item Value Reference Range Interpretation Comments Potassium (test code = 5.1 meq/L 3.5-5.1 Speci men 2823-3) markedly hemolyzed JENNA (test code = JENNA) Force Variation Equipment Tender ID - DB Lab Interpretation Normal (test code = 50231-4) [facility]-[id number] 16:00:00 Test Item Value Reference Range Interpretation Comments Glucose (test code = 2345-7) 233 mg/dL 70-105 H JENNA (test code = JENNA) Force Variation Equipment Tender ID - DB Lab Interpretation (test Abnormal code = 91376-6) [facility] CenterPotassium-[id number] 16:00:00 Test Item Value Reference Range Interpretation Comments Potassium (test code = 5.1 meq/L 3.5-5.1 Speci men 2823-3) markedly hemolyzed JENNA (test code = JENNA) Force Variation Equipment Tender ID - DB Lab Interpretation Normal (test code = 23930-7) [facility] [id number] 16:00:00 Test Item Value Reference Range Interpretation Comments POTASSIUM (BEAKER) 5.1 meq/L 3.5-5.1 Specimen markedly (test code = 379) hemolyzed Force Variation Equipment Tender ID - [id number] 16:00:00 Test Item Value Reference Range Interpretation Comments GLUCOSE RANDOM (BEAKER) (test code 233 mg/dL 70-105 H = 652) Force Variation Equipment Tender ID - DBLactic Acid, Ditsimxy2261-68-91 15:58:00 Test Item Value Reference Range Interpretation Comments Lactate, Art (test 1.6 mmol/L 0.5-2.2 Specimen code = 2874) slightly hemolyzed JENNA (test code = JENNA) Force Variation Equipment Tender ID - DB Lab Interpretation Normal (test code = 65197-9) [facility] CenterL[facility] Acid, [id number] 15:58:00 Test Item Value Reference Range Interpretation Comments Lactate, Art (test 1.6 mmol/L 0.5-2.2 Specimen code = 2874) slightly hemolyzed JENNA (test code = JENNA) Force Variation Equipment Tender ID - DB Lab Interpretation Normal (test code = 84618-9) [facility] CenterLACTIC ACID, [id number] 15:58:00 Test Item Value Reference Range Interpretation Comments LACTATE BLOOD 1.6 mmol/L 0.5-2.2 Specimen sligh tly ARTERIAL (2) (BEAKER) hemoly zed (test code = 2874) Force Variation Equipment Tender ID - DBPOCT-GLUCOSE [id number] 13:56:00 Test Item Value Reference Range Interpretation Comments POC-GLUCOSE METER 264 mg/dL 70-110 H : TESTED A T [facility] 6720 (LogicTreeAKER) (test code = [facility] 15[facility] [address]: Force Variation Equipment Tender/Techni yu ID = [id number] for MARY BETH BLANCA POCT-GLUCOSE [id number] 13:10:00 Test Item Value Reference Range Interpretation Comments POC-GLUCOSE METER 302 mg/dL 70-110 H : TESTED A T [facility] 6720 (BEAKER) (test code = [place] [facility], 1538) [address]: Force Variation Equipment Tender/Techni yu ID = [id number] for MARY BETH BLANCA POCT-GLUCOSE [id number] 13:10:00 Test Item Value Reference Range Interpretation Comments POC-GLUCOSE METER 388 mg/dL 70-110 H : TESTED A T [facility] 6720 (BELEM) (test code = [place], 1538) [address]: Force Variation Equipment Tender/Techni yu ID = [id number] for MARY BETH BLANCA RAD, CHEST, 1 VIEW, NON [id number] 11:52:00Reason for exam:->s/p cv [facility] [place] VANDANA MONTES : 1955 Sex: MFINAL REPORT RAD, CHEST, 1 VIEW, NON DEPT INDICATION: s/p cv surgery COMPARISON: Prior day's exam FINDINGS: Portable frontal view of the chest. IMPRESSION: Support Lines: Pacer device Lungs and pleura: Mild diffuse interstitial thickening is unchanged. No pneumothorax.Heart and mediastinum: Stable contours.Additional findings: None. Signed: Alayna Gomez Verified Date/Time: 05/29/2020 11:52:15 Reading Location: [facility] Radiology Reading Room XR chest 1 view portable / [id number] 11:52:00 Interface, External Ris In - 05/29/2020 11:54 AM CDTFINAL REPORT RAD, CHEST, 1 VIEW, NON DEPT INDICATION: s/p cv surgery COMPARISON: Prior day's exam FINDINGS: Portable frontal view of the chest. IMPRESSION: Support Lines: Pacer device Lungs and pleura: Mild diffuse interstitial thickening is unchanged. No pneumothorax.Heart and mediastinum: Stable contours.Additional findings: None. Signed: Alayna Gomez Verified Date/Time: 05/29/2020 11:52:15 Reading Location:[facility] Radiology Reading [facility] CenterBASI [facility]ABOLIC [id number] 10:38:00 Test Item Value Reference Range Interpretation [...] S NOT APPLICABLE FOR DIALYSIS PATIEN TS. Force Variation Equipment Tender ID - RJ [id number] 10:33:00 Test Item Value Reference Range Interpretation Comments MAGNESIUM (BEAKER) 1.7 mg/dL 1.6-2.6 Specimen slightly (test code = 627) hemolyzed Force Variation Equipment Tender ID - RJ MLACTIC ACID, [id number] 10:30:00 Test Item Value Reference Range Interpretation Comments LACTATE BLOOD 2.4 mmol/L 0.5-2.2 H Specimen sligh tly ARTERIAL (2) (BEAKER) hemoly zed (test code = 2874) Force Variation Equipment Tender ID Marlo HERNANDEZ FCBC (Hemogram only)2020-05-29 10:24:00 Test Item Value Reference Range Interpretation Comments WBC (test code = 6690-2) 13.3 See_Comment H [A utomated message] The system [employer] generated this result transmitted ref erence range: 3.5 - 10 .5 K/L. The refe rence range was not u sed to interpret this result as normal/abnor mal. RBC (test code = 789-8) 5.52 See_Comment [Au tomated message] The system [employer] generated this result transmitted ref erence range: 4.63 - 6 .08 M/L. The refe rence range was not u sed to interpret this result as normal/abnor mal. MCHC (test code = 786-4) 33.1 See_Comment [A utomated message] The system [employer] generated this result transmitted ref erence range: [...] See_Comment [Aut omated message] 777-3) The system [employer] generated this result transmitted ref erence range: 150 - 45 0 K/CU MM. The referen ce range was not u sed to interpret this result as normal/abnor mal. MPV (test code = 11.4 fL 9.4-12.4 59104-9) nRBC (test code = 413) 0 See_Comment [Aut omated message] The system [employer] generated this result transmitted ref erence range: 0 - 0 /1 00 WBC. The refere nce range was not u sed to interpret this result as normal/abnor mal. Lab Interpretation (test Abnormal code = 03996-0) [facility]CBC (Hemogram only)2020-05-29 10:24:00 Test Item Value Reference Range Interpretation Comments WBC (test code = 6690-2) 13.3 See_Comment H [A utomated message] The system [employer] generated this result transmitted ref erence range: 3.5 - 10 .5 K/L. The refe rence range was not u sed to interpret this result as normal/abnor mal. RBC (test code = 789-8) 5.52 See_Comment [Au tomated message] The system [employer] generated this result transmitted ref erence range: 4.63 - 6 .08 M/L. The refe rence range was not u sed to interpret this result as normal/abnor mal. MCHC (test code = 786-4) 33.1 See_Comment [A utomated message] The system [employer] generated this result transmitted ref erence range: 32.3 - 3 6.5 GM/DL. The refe rence range was not u sed to interpret this result as normal/abnor mal. Hematocrit (test code = 50.2 % 40.1-51.0 4544-3) MCV (test code = 787-2) 90.9 fL 79.0-92.2 MCH (test code = 785-6) 30.1 pg 25.7-32.2 RDW (test code = 788-0) 13.1 % 11.6-14.4 Platelets (test code = 172 See_Comment [Aut omated message] 777-3) The system [employer] generated this result transmitted ref erence range: 150 - 45 0 K/CU MM. The referen ce range was not u sed to interpret this result as normal/abnor mal. MPV (test code = 11.4 fL 9.4-12.4 72974-4) nRBC (test code = 413) 0 See_Comment [Aut omated message] The system [employer] generated this result transmitted ref erence range: 0 - 0 /1 00 WBC. The refere nce range was not u sed to interpret this result as normal/abnor mal. Lab Interpretation (test Abnormal code = 19738-5) [facility] (HEMOGRAM ONLY)2020-05-29 10:24:00 Test Item Value [...] (BEAKER) (test code = 413) Blood gas, [id number] 10:11:00 Test Item Value Reference Range Interpretation [...] 44 Lab Interpretation Abnormal (test code = 26170-5) [facility] CenterBlood gas, [id number] 10:11:00 Test Item Value Reference Range Interpretation [...] . O2 Sat, Arterial (test 97.7 % 96.0-97.0 H code = 2708-6) HCO3, Arterial (test 22 mmol/L 21-29 code = 1960-4) Base Excess, Arterial -2.5 mmol/L -2.0-3.0 L (test code = 1925-7) Patient Temperature 36.3 (test code = 8310-5) FIO2 (test code = 1819) 44 Lab Interpretation Abnormal (test code = 40688-9) [facility] CenterBLOOD GAS, [id number] 10:11:00 Test Item Value Reference Range Interpretation [...] (test code = 1819) 44.0 HGB/HCT (H&H)-Stat [id number] 09:16:00 Test Item Value Reference Range Interpretation Comments Hemoglobin (test code = 16.9 See_Comment H [Au tomated message] 786-4) The system [employer] generated this result transmitted ref erence range: 13.0 - 1 6.8 GM/DL. The refe rence range was not u sed to interpret this result as normal/abnor mal. Hematocrit (test code = 50.0 % 40-50 4544-3) Lab Interpretation (test Abnormal code = 74785-5) [facility] CenterGlucose-Stat [id number] 09:16:00 Test Item Value Reference Range Interpretation Comments Glucose (test code = 2345-7) 321 mg/dL 70-110 H Lab Interpretation (test code = Abnormal 06374-4) [facility] CenterPotassium-Stat [id number] 09:16:00 Test Item Value Reference Range Interpretation Comments Potassium (test code = 2823-3) 3.3 meq/L 3.6-5.5 L Lab Interpretation (test code = Abnormal 98858-5) [facility] CenterHGB[facility]HCT (H&H)-Stat [id number] 09:16:00 Test Item Value Reference Range Interpretation Comments Hemoglobin (test code = 16.9 See_Comment H [Au tomated message] 786-4) The system [employer] generated this result transmitted ref erence range: 13.0 - 1 6.8 GM/DL. The refe rence range was not u sed to interpret this result as normal/abnor mal. Hematocrit (test code = 50.0 % 40.0-50.0 4544-3) Lab Interpretation (test Abnormal code = 42969-3) [facility] CenterGlucose-Stat [id number] 09:16:00 Test Item Value Reference Range Interpretation Comments Glucose (test code = 2345-7) 321 mg/dL 70-110 H Lab Interpretation (test code = Abnormal 72861-4) [facility] CenterPotassium-Stat [id number] 09:16:00 Test Item Value Reference Range Interpretation Comments Potassium (test code = 2823-3) 3.3 meq/L 3.6-5.5 L Lab Interpretation (test code = Abnormal 18262-2) [facility] CenterBLOOD GAS, [id number] 09:16:00 Test Item Value Reference Range Interpretation [...] (BEAKER) (test code = 1819) 70.0 POTASSIUM-STAT [id number] 09:16:00 Test Item Value Reference Range Interpretation Comments POTASSIUM (BEAKER) (test code = 3.3 meq/L 3.6-5.5 L 379) GLUCOSE-STAT [id number] 09:16:00 Test Item Value Reference Range Interpretation Comments GLUCOSE RANDOM (BEAKER) (test code 321 mg/dL 70-110 H = 652) HGB/HCT (H&H) - STAT [id number] 09:16:00 Test Item Value Reference Range Interpretation Comments HEMOGLOBIN (BEAKER) (test code = 16.9 GM/DL 13.0-16.8 H 410) HEMATOCRIT (BEAKER) (test code = 50.0 % 40.0-50.0 411) Sodium Na-Stat [id number] 09:14:00 Test Item Value Reference Range Interpretation Comments Sodium (test code = 2951-2) 139 meq/L 136-145 Lab Interpretation (test code = Normal 21929-4) [facility] [id number] 09:14:00 Test Item Value Reference Range Interpretation Comments Sodium (test code = 2951-2) 139 meq/L 136-145 Lab Interpretation (test code = Normal 19003-6) [facility] CenterOD[facility] NA-STAT [id number] 09:14:00 Test Item Value Reference Range Interpretation Comments SODIUM (BEAKER) (test code = 381) 139 meq/L 136-145 Calcium, [id number] 08:23:00 Test Item Value Reference Range Interpretation Comments Calcium, Ion (test code = 1993-04) 1.13 mmol/L 1.12-1.27 pH, Blood (test code = 70556-6) 7.28 [facility] CenterCalcium, [id number] 08:23:00 Test Item Value Reference Range Interpretation Comments Calcium, Ion (test code = 1993-04) 1.13 mmol/L 1.12-1.27 pH, Blood (test code = 57804-0) 7.28 [facility] CenterBLOOD GAS, [id number] 08:23:00 Test Item Value Reference Range Interpretation [...] (BEAKER) (test code = 1819) 86.0 GLUCOSE-STAT [id number] 08:23:00 Test Item Value Reference Range Interpretation Comments GLUCOSE RANDOM (BEAKER) (test code 365 mg/dL 70-110 H = 652) HGB/HCT (H&H) - STAT [id number] 08:23:00 Test Item Value Reference Range Interpretation Comments HEMOGLOBIN (BEAKER) (test code = 18.1 GM/DL 13.0-16.8 H 410) HEMATOCRIT (BEAKER) (test code = 53.0 % 40.0-50.0 H 411) CALCIUM, [id number] 08:23:00 Test Item Value Reference Range Interpretation Comments CALCIUM IONIZED (BEAKER) (test 1.13 mmol/L 1.12-1.27 code = 698) PH, BLOOD (BEAKER) (test code = 7.28 1810) SODIUM NA-STAT [id number] 08:22:00 Test Item Value Reference Range Interpretation Comments SODIUM (BEAKER) (test code = 381) 139 meq/L 136-145 POTASSIUM-STAT [id number] 08:22:00 Test Item Value Reference Range Interpretation Comments POTASSIUM (BEAKER) (test code = 3.9 meq/L 3.6-5.5 379) Type and screen, [id number] 07:30:00 Test Item Value Reference Range Interpretation Comments ABO/RH AUTOMATED (BEAKER) (test O POSITIVE code = 2260) Ab Scrn (test code = 890-4) NEGATIVE [facility] CenterType and screen, [id number] 07:30:00 Test Item Value Reference Range Interpretation Comments ABO/RH AUTOMATED (BEAKER) (test O POSITIVE code = 2260) Ab Scrn (test code = 890-4) NEGATIVE [facility] CenterPOCT-GLUCOSE [id number] 06:38:00 Test Item Value Reference Range Interpretation Comments POC-GLUCOSE METER 395 mg/dL 70-110 H : TESTED A T [facility] 6720 (BEAKER) (test code [facility], = 1538) 158[address]: Force Variation Equipment Tender/Techni yu ID = [id number] for JORD AN, LACRYSTAL BASIC METABOLIC [id number] 13:06:00 Test Item Value Reference Range Interpretation [...] S NOT APPLICABLE FOR DIALYSIS PATIEN TS. Force Variation Equipment Tender ID - PIAYA LProthrombin time/[id number] 13:03:00 Test Item Value Reference Interpretation Comments Range Protime (test code = 12.3 See_Comment [Autom ated 5902-2) message] The system which generated this result transmitted reference range : 11.9 - 14.2 seconds. The reference range was not used to interpret this result as normal/abnormal . INR (test code = 0.94 See_Comment [Automated 6301-6) message] The system which generated this result [...] valves. Lab Interpretation Normal (test code = 37300-0) [facility] CenterPROTHROMBIN TIME/[id number] 13:03:00 Test Item Value Reference Range Interpretation Comments PROTIME (BEAKER) 12.3 seconds 11.9-14.2 (test code = 759) INR (BEAKER) (test 0.94 See_Comment [Automat ed message] code = 370) The system [employer] generated this result transmitted ref erence range: [...] mechanical heart valves.CBC W/PLT COUNT & AUTO [id number] 12:53:00 Test Item Value Reference Range Interpretation [...] PERCENT (BEAKER) (test code = 2801) BLOOD [id number] 16:48:00 Test Item Value Reference Range Interpretation Comments CULTURE (BEAKER) (test No growth in 5 days code = 1095) BLOOD [id number] 16:48:00 Test Item Value Reference Range Interpretation Comments CULTURE (BEAKER) (test No growth in 5 days code = 1095) [id number] 12:53:00 Test Item Value Reference Range Interpretation Comments MAGNESIUM (BEAKER) (test code = 2.4 mg/dL 1.6-2.6 627) BASIC METABOLIC [id number] 12:53:00 Test Item Value Reference Range Interpretation [...] NOT APPLICABLE FOR DIALYSIS PATIEN TS. POCT-GLUCOSE [id number] 12:15:00 Test Item Value Reference Range Interpretation Comments POC-GLUCOSE METER 277 mg/dL 70-110 H TESTED AT [facility] 6720 (BEAKER) (test code = [place] 1538) [address] POCT-GLUCOSE [id number] 08:07:00 Test Item Value Reference Range Interpretation Comments POC-GLUCOSE METER 184 mg/dL 70-110 H TESTED AT [facility] 6720 (BEAKER) (test code = [place] 1538) [address] BASIC METABOLIC [id number] 05:15:00 Test Item Value Reference Range Interpretation [...] S NOT APPLICABLE FOR DIALYSIS PATIEN TS. [id number] 05:09:00 Test Item Value Reference Range Interpretation Comments MAGNESIUM (BEAKER) (test code = 1.7 mg/dL 1.6-2.6 627) B-TYPE NATRIURETIC FACTOR (BNP)2017-08-29 05:06:00 Test Item Value Reference Range Interpretation Comments B-TYPE NATRIURETIC PEPTIDE (BEAKER) 370 pg/mL 0-100 H (test code = 700) LACTIC ACID, VENOUS, WHOLE [id number] 04:52:00 Test Item Value Reference Range Interpretation Comments LACTATE BLOOD VENOUS (2) (BEAKER) 1.8 mmol/L 0.5-2.2 (test code = 2872) Effective 06/11/2015: Units/Reference Range ChangeNew: 0.5-2.2 mmol/L Previous: 5-20 mg/dLCBC W/PLT COUNT & AUTO [id number] 04:35:00 Test Item Value Reference Range Interpretation [...] PERCENT (BEAKER) (test code = 2801) POCT-GLUCOSE [id number] 21:17:00 Test Item Value Reference Range Interpretation Comments POC-GLUCOSE METER 280 mg/dL 70-110 H TESTED AT [facility] 6720 (BEAKER) (test code = [facility] 1538) [address] POCT-GLUCOSE [id number] 07:05:00 Test Item Value Reference Range Interpretation Comments POC-GLUCOSE METER 188 mg/dL 70-110 H TESTED AT [facility] 6720 (BEAKER) (test code = [facility] 1538) [address] CALCIUM, [id number] 05:24:00 Test Item Value Reference Range Interpretation Comments CALCIUM IONIZED (BEAKER) (test 0.96 mmol/L 1.12-1.27 L code = 698) PH, BLOOD (BEAKER) (test code = 7.46 1810) [id number] 04:51:00 Test Item Value Reference Range Interpretation Comments POTASSIUM (BEAKER) (test code = 2.7 meq/L 3.5-5.1 L 379) PRN - repeat potassium levels every 1 hour until glucose level is less than 450 mg/[id number] 04:51:00 Test Item Value Reference Range Interpretation Comments PHOSPHORUS (BEAKER) (test code = 3.0 mg/dL 2.3-4.7 604) PRN - repeat potassium levels every 1 hour until glucose level is less than 450 mg/dLBASIC METABOLIC [id number] 04:51:00 Test Item Value Reference Range Interpretation [...] than 450 mg/dLCBC W/PLT COUNT & AUTO [id number] 04:16:00 Test Item Value Reference Range Interpretation [...] 0-1 PERCENT (BEAKER) (test code = 2801) [id number] 18:36:00 Test Item Value Reference Range Interpretation Comments POTASSIUM (BEAKER) (test code = 3.0 meq/L 3.5-5.1 L 379) PRN - repeat potassium levels every 1 hour until glucose level is less than 450 mg/[id number] 18:36:00 Test Item Value Reference Range Interpretation Comments MAGNESIUM (BEAKER) (test code = 2.1 mg/dL 1.6-2.6 627) PRN - repeat potassium levels every 1 hour until glucose level is less than 450 mg/dLPOCT-GLUCOSE [id number] 18:21:00 Test Item Value Reference Range Interpretation Comments POC-GLUCOSE METER 173 mg/dL 70-110 H [facility] [place] [address] [facility] (test code = [facility] 1538) [address] POCT-GLUCOSE [id number] 12:08:00 Test Item Value Reference Range Interpretation Comments POC-GLUCOSE METER 206 mg/dL 70-110 H [facility] [place] [address] [facility] (test code = [facility] 1538) [address] [id number] 09:28:00 Test Item Value Reference Range Interpretation Comments POTASSIUM (BEAKER) (test code = 3.1 meq/L 3.5-5.1 L 379) PRN - repeat potassium levels every 1 hour until glucose level is less than 450 mg/[id number] 09:28:00 Test Item Value Reference Range Interpretation Comments MAGNESIUM (BEAKER) (test code = 1.8 mg/dL 1.6-2.6 627) PRN - repeat potassium levels every 1 hour until glucose level is less than 450 mg/[id number] 08:41:00 Test Item Value Reference Range Interpretation Comments PHOSPHORUS (BEAKER) (test code = 3.1 mg/dL 2.3-4.7 604) [id number] 08:41:00 Test Item Value Reference Range Interpretation Comments MAGNESIUM (BEAKER) (test code = 1.8 mg/dL 1.6-2.6 627) BASIC METABOLIC [id number] 08:41:00 Test Item Value Reference Range Interpretation [...] NOT APPLICABLE FOR DIALYSIS PATIEN TS. POCT-GLUCOSE [id number] 07:57:00 Test Item Value Reference Range Interpretation Comments POC-GLUCOSE METER 156 mg/dL 70-110 H TESTED AT [facility] 6720 (BEAKER) (test code = [place] 1538) [address] CALCIUM, [id number] 06:01:00 Test Item Value Reference Range Interpretation Comments CALCIUM IONIZED (BEAKER) (test 1.05 mmol/L 1.12-1.27 L code = 698) PH, BLOOD (BEAKER) (test code = 7.46 1810) OXYGEN SATURATION, [id number] 05:58:00 Test Item Value Reference Range Interpretation Comments O2 SATURATION (MEASURED) (BEAKER) 62.7 % (test code = 1455) [id number] 02:38:00 Test Item Value Reference Range Interpretation Comments POTASSIUM (BEAKER) 3.2 meq/L 3.5-5.1 L Specimen slightly (test code = 379) hemolyzed PRN - repeat potassium levels every 1 hour until glucose level is less than 450 mg/dLCBC W/PLT COUNT & AUTO [id number] 02:29:00 Test Item Value Reference Range Interpretation [...] PERCENT (BEAKER) (test code = 2801) POCT-GLUCOSE [id number] 00:21:00 Test Item Value Reference Range Interpretation Comments POC-GLUCOSE METER 166 mg/dL 70-110 H TESTED AT [facility] 6720 (BEYASIR) (test code = [place] 1538) [address] RAD, CHEST, 1 VIEW, NON [id number] 22:03:00Reason for exam:->preopShould this be performed at [...] further assessed with CT scan. Signed: Nalini Nance Verified Date/Time: 08/26/2017 22:03:18 Reading Location: [facility] C013W Consult Reading Room [id number] 21:21:00 Test Item Value Reference Range Interpretation Comments PHOSPHORUS (BEAKER) (test code = 1.8 mg/dL 2.3-4.7 L 604) [id number] 21:21:00 Test Item Value Reference Range Interpretation Comments MAGNESIUM (BEAKER) (test code = 2.2 mg/dL 1.6-2.6 627) BASIC METABOLIC [id number] 21:21:00 Test Item Value Reference Range Interpretation [...] NOT APPLICABLE FOR DIALYSIS PATIEN TS. CALCIUM, [id number] 19:57:00 Test Item Value Reference Range Interpretation Comments CALCIUM IONIZED (BEAKER) (test 1.06 mmol/L 1.12-1.27 L code = 698) PH, BLOOD (BEAKER) (test code = 7.48 1810) Check serum Ionized Calcium level after 4 hours after IV Calcium replacement. [id number] 19:35:00 Test Item Value Reference Range Interpretation Comments POTASSIUM (BEAKER) (test code = 3.0 meq/L 3.5-5.1 L 379) PRN - repeat potassium levels every 1 hour until glucose level is less than 450 mg/dLPOCT-GLUCOSE [id number] 18:15:00 Test Item Value Reference Range Interpretation Comments POC-GLUCOSE METER 276 mg/dL 70-110 H TESTED AT [facility] 6720 (BEAKER) (test code = [place] 1538) [address] [id number] 12:52:00 Test Item Value Reference Range Interpretation Comments PHOSPHORUS (BEAKER) (test code = 1.7 mg/dL 2.3-4.7 L 604) [id number] 12:52:00 Test Item Value Reference Range Interpretation Comments MAGNESIUM (BEAKER) (test code = 1.9 mg/dL 1.6-2.6 627) BASIC METABOLIC [id number] 12:52:00 Test Item Value Reference Range Interpretation [...] NOT APPLICABLE FOR DIALYSIS PATIEN TS. CALCIUM, [id number] 12:51:00 Test Item Value Reference Range Interpretation Comments CALCIUM IONIZED (BEAKER) (test 1.01 mmol/L 1.12-1.27 L code = 698) PH, BLOOD (BEAKER) (test code = 7.49 1810) OXYGEN SATURATION, [id number] 12:50:00 Test Item Value Reference Range Interpretation Comments O2 SATURATION (MEASURED) (BEAKER) 59.9 % (test code = 1455) POCT-GLUCOSE [id number] 11:41:00 Test Item Value Reference Range Interpretation Comments POC-GLUCOSE METER 236 mg/dL 70-110 H TESTED AT [facility] 6720 (BEAKER) (test code = [place] 1538) [address] OXYGEN SATURATION, [id number] 08:00:00 Test Item Value Reference Range Interpretation Comments O2 SATURATION (MEASURED) (BEAKER) 65.7 % (test code = 1455) POCT-GLUCOSE [id number] 07:53:00 Test Item Value Reference Range Interpretation Comments POC-GLUCOSE METER 204 mg/dL 70-110 H TESTED AT [facility] 6720 (BEAKER) (test code = [place] 1538) [address] SPUTUM CULTURE + GRAM [id number] 07:40:00 Test Item Value Reference Range Interpretation Comments CULTURE (BEAKER) Oropharyngeal (test code = 1095) contamination, specimen rejected. Recollect requested. GRAM STAIN RESULT No White blood cells seen (BEAKER) (test code = 1123) GRAM STAIN RESULT >25 epithelial cells (BEAKER) (test code = 86596) GRAM STAIN RESULT <1+ yeast with (BEAKER) (test code pseudohyphae = 29394) RAD, ABDOMEN/KUB, 1 VIEW [id number] 07:34:00Reason for exam:->corpak placementShould this be performed at the bedside?->YesFINAL REPORT Abdomen one view shows feeding tube at the pylorus. Signed: Vandana Alfredo Verified Date/Time: 08/26/2017 07:34:48 Reading Location: [facility] Radiology Reading Room RAD, CHEST, 1 VIEW, NON [id number] 07:27:00Reason for exam:->respiratory insufficiencyShould this be performed [...] Date/Time: 08/26/2017 07:27:28 Reading Location: [facility] Radiology Reading Room BASIC METABOLIC [id number] 05:32:00 Test Item Value Reference Range Interpretation [...] S NOT APPLICABLE FOR DIALYSIS PATIEN TS. [id number] 05:31:00 Test Item Value Reference Range Interpretation Comments MAGNESIUM (BEAKER) (test code = 2.2 mg/dL 1.6-2.6 627) CBC W/PLT COUNT & AUTO [id number] 04:49:00 Test Item Value Reference Range Interpretation [...] 2801) CT BRAIN WITHOUT IV CONTRAST - [id number] 02:23:00Reason for exam:- >confusion/delirium, altered LOC unexplainedFINAL [...] of an acute intracranial process. Signed: Mary Zimmer MDReport Verified Date/Time: 08/26/2017 02:23:10 Reading Location: [facility] B1 C013Y CT Body Reading Room [id number] 01:02:00 Test Item Value Reference Range Interpretation Comments POTASSIUM (BEAKER) (test code = 3.3 meq/L 3.5-5.1 L 379) PRN - repeat potassium levels every 1 hour until glucose level is less than 450 mg/[id number] 01:02:00 Test Item Value Reference Range Interpretation Comments MAGNESIUM (BEAKER) (test code = 1.9 mg/dL 1.6-2.6 627) PRN - repeat potassium levels every 1 hour until glucose level is less than 450 mg/dLPOCT-GLUCOSE [id number] 22:07:00 Test Item Value Reference Range Interpretation Comments POC-GLUCOSE METER 270 mg/dL 70-110 H TESTED AT [facility] 6720 (BEAKER) (test code = [place] [facility] 1538) [address] BLOOD GAS, [id number] 21:24:00 Test Item Value Reference Range Interpretation [...] code = 1819) 44.0 % SODIUM NA-STAT [id number] 21:19:00 Test Item Value Reference Range Interpretation Comments SODIUM (BEAKER) (test code = 381) 142 meq/L 135-148 [id number] 20:16:00 Test Item Value Reference Range Interpretation Comments MAGNESIUM (BEAKER) 2.3 mg/dL 1.6-2.6 Specimen slightly (test code = 627) hemolyzed PRN - repeat potassium levels every 1 hour until glucose level is less than 450 mg/[id number] 20:16:00 Test Item Value Reference Range Interpretation Comments POTASSIUM (BEAKER) 3.6 meq/L 3.5-5.1 Specimen slightly (test code = 379) hemolyzed PRN - repeat potassium levels every 1 hour until glucose level is less than 450 mg/[id number] 18:42:00 Test Item Value Reference Range Interpretation Comments SODIUM (BEAKER) (test code = 381) 144 meq/L 136-145 EEG AWAKE AND [id number] 18:32:00Reason for exam:->To rule out seizures/ AMSDATE OF REPORT: CC: [id number] Number: [id number] time: 14:55 Stop time: 15:20ICD-10: R56.9CPT Code: 08849 HISTORY: 62 yo male with PMHx of ALL, SD, HTN, 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 [...] of epilepsy. Cecily Garcia MDNeurophysiology/Epilepsy Fellow Bear Montanez MD, MSClinical Neurophysiology/epilepsy attending Electronically signedby: BEAR MONTANEZ MD on 08/25/2017 06:32 PMBLOOD [id number] 17:49:00 Test Item Value Reference Range Interpretation Comments CULTURE (BEAKER) (test No growth in 5 days code = 1095) BLOOD [id number] 17:48:00 Test Item Value Reference Range Interpretation Comments CULTURE (BEAKER) (test No growth in 5 days code = 1095) POCT-GLUCOSE [id number] 17:30:00 Test Item Value Reference Range Interpretation Comments POC-GLUCOSE METER 254 mg/dL 70-110 H TESTED AT [place] [address] ([facility]) (test code = [place] [facility] 1538) [address] POCT-GLUCOSE [id number] 11:50:00 Test Item Value Reference Range Interpretation Comments POC-GLUCOSE METER 252 mg/dL 70-110 H TESTED AT [place] [address] ([facility]) (test code = [place] [facility] 1538) [address] POCT-GLUCOSE [id number] 09:11:00 Test Item Value Reference Range Interpretation Comments POC-GLUCOSE METER 312 mg/dL 70-110 H TESTED AT [place] [address] ([facility]) (test code = [facility] [place] [facility] 1538) [address] RAD, CHEST, 1 VIEW, NON [id number] 07:31:00Reason for exam:->pulmonary edemaShould this be performed at the bedside?->YesFINAL REPORT Chest one view compared to August 24 Discussion: Mild cardiac prominence and interstitial edema are noted. No effusion or pneumothorax. Feeding tube and right IJ line in place. IMPRESSIONS: Interstitial edema is worse. Signed: Vandana Toddephal Verified Date/Time: 08/25/2017 07:31:54 Reading Location: [facility] Radiology Reading Room [id number] 07:13:00 Test Item Value Reference Range Interpretation Comments MAGNESIUM (BEAKER) (test code = 1.8 mg/dL 1.6-2.6 627) BASIC METABOLIC [id number] 07:13:00 Test Item Value Reference Range Interpretation [...] PATIEN TS. CBC W/PLT COUNT & AUTO [id number] 04:57:00 Test Item Value Reference Range Interpretation [...] (BEAKER) (test code = 2801) BLOOD GAS, [id number] 04:31:00 Test Item Value Reference Range Interpretation [...] H (test code = 387) PATIENT TEMPERATURE ([facility]) 37.0 C (test code = 1818) FIO2 ([facility]) (test code = 1819) 44.0 % OXYGEN SATURATION, [id number] 04:20:00 Test Item Value Reference Range Interpretation Comments O2 SATURATION (MEASURED) ([facility]) 64.8 % (test code = 1455) POCT-GLUCOSE [id number] 22:39:00 Test Item Value Reference Range Interpretation Comments POC-GLUCOSE METER 196 mg/dL 70-110 H TESTED AT [place] [address] ([facility]) (test code = [facility] [place] 1538) [address] [id number] 19:20:00 Test Item Value Reference Range Interpretation Comments POTASSIUM (BEAKER) 3.8 meq/L 3.5-5.1 Specimen slightly (test code = 379) hemolyzed PRN - repeat potassium levels every 1 hour until glucose level is less than 450 mg/dLCALCIUM, [id number] 18:28:00 Test Item Value Reference Range Interpretation Comments CALCIUM IONIZED ([facility]) (test 1.04 mmol/L 1.12-1.27 L code = 698) PH, BLOOD ([facility]) (test code = 7.49 1810) Check serum Ionized Calcium level after 4 hours after IV Calcium replacement. POCT-GLUCOSE [id number] 18:23:00 Test Item Value Reference Range Interpretation Comments POC-GLUCOSE METER 194 mg/dL 70-110 H TESTED AT [place] [address] ([facility]) (test code = [facility] 1538) [address] VANCOMYCIN LEVEL, [id number] 16:50:00 Test Item Value Reference Range Interpretation Comments VANCOMYCIN TROUGH (AKER) (test 11.3 ug/mL 10.0-20.0 code = 522) Please draw 30 minutes prior to next Vancomycin [id number] 16:06:00 Test Item Value Reference Range Interpretation Comments POTASSIUM (BEAKER) (test code = 3.6 meq/L 3.5-5.1 379) PRN - repeat potassium levels every 1 hour until glucose level is less than 450 mg/[id number] 13:08:00 Test Item Value Reference Range Interpretation Comments POTASSIUM (BEAKER) (test code = 3.4 meq/L 3.5-5.1 L 379) PRN - repeat potassium levels every 1 hour until glucose level is less than 450 mg/dLPOCT-GLUCOSE [id number] 12:38:00 Test Item Value Reference Range Interpretation Comments POC-GLUCOSE METER 217 mg/dL 70-110 H TESTED AT [place] [address] ([facility]) (test code = [place] 1538) [address] [id number] 11:26:00 Test Item Value Reference Range Interpretation Comments PROCALCITONIN (BEAKER) (test code 0.74 ng/mL <0.05 H = 3036) SEPSIS RISK (ng/mL)Low: 0.05-0.50Intermediate: 0.51-2.00High: >=2.01CALCIUM, [id number] 10:51:00 Test Item Value Reference Range Interpretation Comments CALCIUM IONIZED (BEAKER) (test 1.06 mmol/L 1.12-1.27 L code = 698) PH, BLOOD (BEAKER) (test code = 7.39 1810) Check serum Ionized Calcium level after 4 hours after IV Calcium replacement. [id number] 08:53:00 Test Item Value Reference Range Interpretation Comments POTASSIUM (BEAKER) (test code = 3.6 meq/L 3.5-5.1 379) Check Serum Potassium level 2 hours after oral potassium replacement completed or 30 min after intravenous potassium replacement.[id number] 08:53:00 Test Item Value Reference Range Interpretation Comments MAGNESIUM (BEAKER) (test code = 2.6 mg/dL 1.6-2.6 627) Check Serum Potassium level 2 hours after oral potassium replacement completed or 30 min after intravenous potassium replacement.POCT-GLUCOSE [id number] 07:35:00 Test Item Value Reference Range Interpretation Comments POC-GLUCOSE METER 180 mg/dL 70-110 H [facility] [place] [address] [facility] (test code = [place] 1538) [address] [id number] 04:29:00 Test Item Value Reference Range Interpretation Comments PHOSPHORUS (BEAKER) (test code = 2.9 mg/dL 2.3-4.7 604) [id number] 04:29:00 Test Item Value Reference Range Interpretation Comments MAGNESIUM (BEAKER) (test code = 1.9 mg/dL 1.6-2.6 627) BASIC METABOLIC [id number] 04:29:00 Test Item Value Reference Range Interpretation [...] PATIEN TS. RAD, CHEST, 1 VIEW, NON [id number] 04:23:00Reason for exam:->ptxShould this be performed at [...] MDReport Verified Date/Time: 08/24/2017 04:23:14 Reading Location: [address] Reading Room PROTHROMBIN TIME/[id number] 04:15:00 Test Item Value Reference Range Interpretation [...] (BEAKER) (test code = 2801) BLOOD GAS, [id number] 03:54:00 Test Item Value Reference Range Interpretation [...] code = 1819) 100.0 % OXYGEN SATURATION, [id number] 03:54:00 Test Item Value Reference Range Interpretation Comments O2 SATURATION (MEASURED) (BEAKER) 65.9 % (test code = 1455) CALCIUM, [id number] 03:54:00 Test Item Value Reference Range Interpretation Comments CALCIUM IONIZED (BEAKER) (test 1.02 mmol/L 1.12-1.27 L code = 698) PH, BLOOD (BEAKER) (test code = 7.44 1810) POCT-GLUCOSE [id number] 00:15:00 Test Item Value Reference Range Interpretation Comments POC-GLUCOSE METER 221 mg/dL 70-110 H TESTED AT [facility] 6720 (BEAKER) (test code = [place] 1538) [address] [id number] 00:13:00 Test Item Value Reference Range Interpretation Comments POTASSIUM (BEAKER) (test code = 3.3 meq/L 3.5-5.1 L 379) PRN - repeat potassium levels every 1 hour until glucose level is less than 450 mg/[id number] 21:10:00 Test Item Value Reference Range Interpretation Comments POTASSIUM (BEAKER) (test code = 3.6 meq/L 3.5-5.1 379) PRN - repeat potassium levels every 1 hour until glucose level is less than 450 mg/[id number] 21:10:00 Test Item Value Reference Range Interpretation Comments MAGNESIUM (BEAKER) (test code = 2.3 mg/dL 1.6-2.6 627) PRN - repeat potassium levels every 1 hour until glucose level is less than 450 mg/dLCALCIUM, [id number] 20:49:00 Test Item Value Reference Range Interpretation Comments CALCIUM IONIZED (BEAKER) (test 1.02 mmol/L 1.12-1.27 L code = 698) PH, BLOOD (BEAKER) (test code = 7.40 1810) Check serum Ionized Calcium level after 4 hours after IV Calcium replacement. POCT-GLUCOSE [id number] 19:20:00 Test Item Value Reference Range Interpretation Comments POC-GLUCOSE METER 157 mg/dL 70-110 H TESTED AT [place] [address] ([facility]) (test code = [facility] 1538) [address] POCT-GLUCOSE [id number] 19:20:00 Test Item Value Reference Range Interpretation Comments POC-GLUCOSE METER 108 mg/dL 70-110 TESTED AT [place] [address] ([facility]) (test code = [facility] 1538) [address] POCT-GLUCOSE [id number] 19:20:00 Test Item Value Reference Range Interpretation Comments POC-GLUCOSE METER 130 mg/dL 70-110 H TESTED AT [place] [address] ([facility]) (test code = [facility] 1538) [address] POCT-GLUCOSE [id number] 19:20:00 Test Item Value Reference Range Interpretation Comments POC-GLUCOSE METER 172 mg/dL 70-110 H TESTED AT [place] [address] ([facility]) (test code = [place] 1538) [address] POCT-GLUCOSE [id number] 19:20:00 Test Item Value Reference Range Interpretation Comments POC-GLUCOSE METER 215 mg/dL 70-110 H TESTED AT [facility] 6720 (BEAKER) (test code = [place] 1538) [address] [id number] 15:32:00 Test Item Value Reference Range Interpretation Comments POTASSIUM (BEAKER) (test code = 3.1 meq/L 3.5-5.1 L 379) PRN - repeat potassium levels every 1 hour until glucose level is less than 450 mg/[id number] 15:32:00 Test Item Value Reference Range Interpretation Comments MAGNESIUM (BEAKER) (test code = 1.9 mg/dL 1.6-2.6 627) PRN - repeat potassium levels every 1 hour until glucose level is less than 450 mg/dLCALCIUM, [id number] 14:59:00 Test Item Value Reference Range Interpretation Comments CALCIUM IONIZED (BEAKER) (test 0.96 mmol/L 1.12-1.27 L code = 698) PH, BLOOD (BEAKER) (test code = 7.46 1810) Check serum Ionized Calcium level after 4 hours after IV Calcium replacement. [id number] 13:11:00 Test Item Value Reference Range Interpretation Comments MAGNESIUM (BEAKER) (test code = 2.0 mg/dL 1.6-2.6 627) BASIC METABOLIC [id number] 10:37:00 Test Item Value Reference Range Interpretation [...] APPLICABLE FOR DIALYSIS PATIEN TS. U/S, ABDOMINAL, [id number] 10:24:00Abdomen limited area? Add comment if clarification [...] MDReport Verified Date/Time: 08/23/2017 10:24:29 Reading Location: [address] Ultrasound Reading Room SPUTUM CULTURE + GRAM [id number] 09:59:00 Test Item Value Reference Range Interpretation Comments CULTURE (BEAKER) (test See comment code = 1095) GRAM STAIN RESULT 2+ WBCs (BEAKER) (test code = 1123) GRAM STAIN RESULT 5-10 epithelial cells (BEAKER) (test code = 896276) GRAM STAIN RESULT No organisms seen (BEAKER) (test code = 195176) <1+ YeastNo Normal respiratory jessica presentCBC W/PLT COUNT & AUTO [id number] 09:57:00 Test Item Value Reference Range Interpretation [...] Range Interpretation Comments O2 SATURATION (MEASURED) (BEAKER) 75.1 % (test code = 1455) POCT-GLUCOSE [id number] 09:06:00 Test Item Value Reference Range Interpretation Comments POC-GLUCOSE METER 175 mg/dL 70-110 H TESTED AT [facility] 6720 [facility] (test code = [facility] [place] 1538) [address] POCT-GLUCOSE [id number] 09:06:00 Test Item Value Reference Range Interpretation Comments POC-GLUCOSE METER 108 mg/dL 70-110 TESTED AT [facility] 6720 [facility] (test code = [facility] [place] 1538) [address] POCT-GLUCOSE [id number] 09:06:00 Test Item Value Reference Range Interpretation Comments POC-GLUCOSE METER 95 mg/dL 70-110 TESTED AT [facility] 6720 [facility] (test code = [facility] [place] [address] 1538) POCT-GLUCOSE [id number] 09:06:00 Test Item Value Reference Range Interpretation Comments POC-GLUCOSE METER 120 mg/dL 70-110 H TESTED AT [facility] 6720 [facility] (test code = [facility] [place] 1538) [address] PLATELET AGGREGATION: DRUG [id number] 08:24:00 Test Item Value Reference Range Interpretation [...] (BEAKER) ADP suggest a (test code = 098082) D6G67-fhyladvmz drug effect. [id number] Chanel Ryder, (BEAKER) (test code = (electronic 8712) signature) PLATELET COUNT AGG 120 K/CU MM 150-450 L (BEAKER) (test code = 2656) RAD, CHEST, 1 VIEW, NON [id number] 07:26:00Reason for exam:->ptxShould this be performed at the bedside?->YesFINAL REPORT Chest one view compared to August 22 Discussion: Cardiac prominence and mild pulmonary congestion are similar. No effusion or pneumothorax. Right IJ line in place. Support tubes noted. Signed: Vandana Todd Verified Date/Time: 08/23/2017 07:26:37 Reading Location: [facility] Radiology Reading Room BLOOD GAS, [id number] 07:25:00 Test Item Value Reference Range Interpretation [...] (BEAKER) (test code = 1819) 80.0 % [id number] 06:34:00 Test Item Value Reference Range Interpretation Comments FERRITIN (BEAKER) (test code = 361) 268 ng/mL 5-275 VITAMIN B12 AND [id number] 06:34:00 Test Item Value Reference Range Interpretation Comments VITAMIN B12 (BEAKER) (test code = 500 pg/mL 213-816 774) FOLATE (BEAKER) (test code = 362) 12.4 ng/mL >=7.0 RETICULOCYTE [id number] 06:01:00 Test Item Value Reference Range Interpretation [...] % 20-55 L (test code = 2590) [id number] 05:50:00 Test Item Value Reference Range Interpretation Comments MAGNESIUM (BEAKER) (test code = 2.1 mg/dL 1.6-2.6 627) BASIC METABOLIC [id number] 05:50:00 Test Item Value Reference Range Interpretation [...] NOT APPLICABLE FOR DIALYSIS PATIEN TS. CALCIUM, [id number] 05:33:00 Test Item Value Reference Range Interpretation Comments CALCIUM IONIZED (BEAKER) (test 1.02 mmol/L 1.12-1.27 L code = 698) PH, BLOOD (BEAKER) (test code = 7.45 1810) BLOOD GAS, [id number] 05:32:00 Test Item Value Reference Range Interpretation Comments PH ARTERIAL (BEAKER) (test code = 7.45 7.35-7.45 383) PCO2 ARTERIAL (BEAKER) (test code 46 mmHg 35-45 H = 384) PO2 ARTERIAL (BEAKER) (test code = 79 mmHg 80-90 L 385) O2 SATURATION ARTERIAL (BEAKER) 96.1 % 96.0-97.0 (test code = 386) HCO3 ARTERIAL (BEAKER) (test code 31 mmol/L 21-29 H = 388) BASE EXCESS ARTERIAL (BEAKER) 6.6 mmol/L -2.0-3.0 H (test code = 387) PATIENT TEMPERATURE (BEAKER) (test 37.0 C code = 1818) FIO2 (BEAKER) (test code = 1819) 40.0 % POCT-GLUCOSE [id number] 02:47:00 Test Item Value Reference Range Interpretation Comments POC-GLUCOSE METER 137 mg/dL 70-110 H TESTED AT [place] [address] ([facility]) (test code = [facility] 1538) [address] POCT-GLUCOSE [id number] 02:47:00 Test Item Value Reference Range Interpretation Comments POC-GLUCOSE METER 171 mg/dL 70-110 H TESTED AT [place] [address] ([facility]) (test code = [facility] 1538) [address] POCT-GLUCOSE [id number] 02:47:00 Test Item Value Reference Range Interpretation Comments POC-GLUCOSE METER 159 mg/dL 70-110 H TESTED AT [place] [address] ([facility]) (test code = [facility] 1538) [address] [id number] 00:39:00 Test Item Value Reference Range Interpretation Comments MAGNESIUM (BEAKER) (test code = 1.8 mg/dL 1.6-2.6 627) PRN - repeat potassium levels every 1 hour until glucose level is less than 450 mg/[id number] 00:39:00 Test Item Value Reference Range Interpretation Comments POTASSIUM ([facility]) (test code = 3.1 meq/L 3.5-5.1 L 379) PRN - repeat potassium levels every 1 hour until glucose level is less than 450 mg/dLPOCT-GLUCOSE [id number] 23:44:00 Test Item Value Reference Range Interpretation Comments POC-GLUCOSE METER 129 mg/dL 70-110 H TESTED AT [place] [address] ([facility]) (test code = [place] [facility] 1538) [address] POCT-GLUCOSE [id number] 23:44:00 Test Item Value Reference Range Interpretation Comments POC-GLUCOSE METER 130 mg/dL 70-110 H TESTED AT [place] [address] ([facility]) (test code = [place] [facility] 1538) [address] POCT-GLUCOSE [id number] 23:44:00 Test Item Value Reference Range Interpretation Comments POC-GLUCOSE METER 156 mg/dL 70-110 H TESTED AT [place] [address] ([facility]) (test code = [place] [facility] 1538) [address] POCT-GLUCOSE [id number] 22:17:00 Test Item Value Reference Range Interpretation Comments POC-GLUCOSE METER 173 mg/dL 70-110 H TESTED AT [place] [address] ([facility]) (test code = [place] [facility] 1538) [address] POCT-GLUCOSE [id number] 22:17:00 Test Item Value Reference Range Interpretation Comments POC-GLUCOSE METER 160 mg/dL 70-110 H TESTED AT [place] [address] ([facility]) (test code = [place] [facility] 1538) [address] POCT-GLUCOSE [id number] 18:53:00 Test Item Value Reference Range Interpretation Comments POC-GLUCOSE METER 147 mg/dL 70-110 H TESTED AT [place] [address] ([facility]) (test code = [place] [facility] 1538) [address] POCT-GLUCOSE [id number] 18:53:00 Test Item Value Reference Range Interpretation Comments POC-GLUCOSE METER 157 mg/dL 70-110 H TESTED AT [place] [address] ([facility]) (test code = [place] 1538) [address] [id number] 17:05:00 Test Item Value Reference Range Interpretation Comments [facility]MONIA [facility] 54 mol/L 18-72 Specimen sl ightly (test code = 348) hemolyzed VANCOMYCIN LEVEL, [id number] 16:53:00 Test Item Value Reference Range Interpretation Comments [facility]IN TROUGH ([facility] (test 10.8 ug/mL 10.0-20.0 code = 522) Please draw 30 minutes prior to vancomycin due time. Do not administer if vancomycin trough is >20 mcg/mL. Thank you!POCT-GLUCOSE [id number] 16:50:00 Test Item Value Reference Range Interpretation Comments POC-GLUCOSE METER 157 mg/dL 70-110 H TESTED AT [place] [address] ([facility]) (test code = [place] 1538) [address] [id number] 16:50:00 Test Item Value Reference Range Interpretation Comments MAGNESIUM [facility] (test code = 2.1 mg/dL 1.6-2.6 627) POCT-GLUCOSE [id number] 16:50:00 Test Item Value Reference Range Interpretation Comments POC-GLUCOSE METER 141 mg/dL 70-110 H TESTED AT [place] [address] ([facility]) (test code = [employer] [place] 1538) [address] POCT-GLUCOSE [id number] 16:50:00 Test Item Value Reference Range Interpretation Comments POC-GLUCOSE METER 149 mg/dL 70-110 H TESTED AT [place] [address] ([facility]) (test code = [employer] [place] 1538) [address] POCT-GLUCOSE [id number] 16:50:00 Test Item Value Reference Range Interpretation Comments POC-GLUCOSE METER 123 mg/dL 70-110 H TESTED AT [place] [address] ([facility]) (test code = [employer] [place] 1538) [address] POCT-GLUCOSE [id number] 16:50:00 Test Item Value Reference Range Interpretation Comments POC-GLUCOSE METER 105 mg/dL 70-110 TESTED AT [place] [address] ([facility]) (test code = [employer] [place] 1538) [address] [id number] 12:25:00 Test Item Value Reference Range Interpretation Comments PROCALCITONIN ([facility]) (test code 2.33 ng/mL <0.05 H = 3036) SEPSIS RISK (ng/mL)Low: 0.05-0.50Intermediate: 0.51-2.00High: >=2.01URINALYSIS W/ REFLEX URINE [id number] 11:50:00 Test Item Value Reference Range Interpretation [...] 1521) SOURCE(BEAKER) (test code = 2795) TROPONIN [id number] 09:25:00 Test Item Value Reference Range Interpretation [...] completed or 30 min after intravenous potassium replacement.[id number] 09:24:00 Test Item Value Reference Range Interpretation Comments POTASSIUM (BEAKER) (test code = 4.3 meq/L 3.5-5.1 379) PRN - repeat glucose levels every 1 hour or as specified by insulin titration orders until glucose level is less than 450 mg/dLCheck Serum Potassium level 2 hours after oral potassium replacement completed or 30 min after intravenous potassium replacement.[id number] 08:59:00 Test Item Value Reference Range Interpretation Comments GLUCOSE RANDOM (BEAKER) (test code 110 mg/dL 70-105 H = 652) PRN - repeat glucose levels every 1 hour or as specified by insulin titration orders until glucose level is less than 450 mg/dLCheck Serum Potassium level 2 hours after oral potassium replacement completed or 30 min after intravenous potassium replacement.CALCIUM, [id number] 08:43:00 Test Item Value Reference Range Interpretation Comments CALCIUM IONIZED (BEAKER) (test 1.04 mmol/L 1.12-1.27 L code = 698) PH, BLOOD (BEAKER) (test code = 7.47 1810) Check serum Ionized Calcium level after 4 hours after IV Calcium replacement. RAD, CHEST, 1 VIEW, NON [id number] 07:25:00Reason for exam:->ptxShould this be performed at the bedside?->YesFINAL REPORT Chest one view compared to August 21, 2017 Discussion: Support tubes and right IJ line in place. Cardiac prominence is noted. Lungs clear. Drainage tubes visible. No effusion or pneumothorax. Signed: Vandana Todd Verified Date/Time: 08/22/2017 07:25:51 Reading Location: [facility] Radiology Reading Room POCT-GLUCOSE [id number] 06:35:00 Test Item Value Reference Range Interpretation Comments POC-GLUCOSE METER 116 mg/dL 70-110 H TESTED AT [facility] 67 ([facility]) (test code = [place] 1538) [address] POCT-GLUCOSE [id number] 05:20:00 Test Item Value Reference Range Interpretation Comments POC-GLUCOSE METER 136 mg/dL 70-110 H TESTED AT [facility] 6720 (BEAKER) (test code = [place] 1538) [address] CALCIUM, [id number] 04:22:00 Test Item Value Reference Range Interpretation Comments CALCIUM IONIZED (BEAKER) (test 1.05 mmol/L 1.12-1.27 L code = 698) PH, BLOOD (BEAKER) (test code = 7.47 1810) BLOOD GAS, [id number] 04:17:00 Test Item Value Reference Range Interpretation [...] code = 1819) 40.0 % OXYGEN SATURATION, [id number] 04:11:00 Test Item Value Reference Range Interpretation Comments O2 SATURATION (MEASURED) (BEAKER) 50.9 % (test code = 1455) BASIC METABOLIC [id number] 04:07:00 Test Item Value Reference Range Interpretation [...] S NOT APPLICABLE FOR DIALYSIS PATIEN TS. [id number] 04:06:00 Test Item Value Reference Range Interpretation Comments PHOSPHORUS (BEAKER) (test code = 3.8 mg/dL 2.3-4.7 604) LACTIC ACID, ARTERIAL, WHOLE [id number] 04:05:00 Test Item Value Reference Range Interpretation Comments LACTATE BLOOD ARTERIAL (2) 0.9 mmol/L 0.5-2.2 (BEAKER) (test code = 2874) Effective 06/11/2015: Units/Reference Range ChangeNew: 0.5-2.2 mmol/L Previous: 5-20 mg/[id number] 04:02:00 Test Item Value Reference Range Interpretation Comments MAGNESIUM (BEAKER) (test code = 2.1 mg/dL 1.6-2.6 627) CBC W/PLT COUNT & AUTO [id number] 03:52:00 Test Item Value Reference Range Interpretation [...] PERCENT (BEAKER) (test code = 2801) POCT-GLUCOSE [id number] 03:45:00 Test Item Value Reference Range Interpretation Comments POC-GLUCOSE METER 148 mg/dL 70-110 H TESTED AT [place] [address] ([facility]) (test code = [place] [facility] 1538) [address] POCT-GLUCOSE [id number] 02:36:00 Test Item Value Reference Range Interpretation Comments POC-GLUCOSE METER 155 mg/dL 70-110 H TESTED AT [place] [address] ([facility]) (test code = [place] [facility] 1538) [address] POCT-GLUCOSE [id number] 01:16:00 Test Item Value Reference Range Interpretation Comments POC-GLUCOSE METER 136 mg/dL 70-110 H TESTED AT [place] [address] ([facility]) (test code = [place] [facility] 1538) [address] POCT-GLUCOSE [id number] 00:22:00 Test Item Value Reference Range Interpretation Comments POC-GLUCOSE METER 124 mg/dL 70-110 H TESTED AT [place] [address] ([facility]) (test code = [place] 1538) [address] [id number] 23:28:00 Test Item Value Reference Range Interpretation Comments MAGNESIUM ([facility]) (test code = 1.9 mg/dL 1.6-2.6 627) POCT-GLUCOSE [id number] 23:11:00 Test Item Value Reference Range Interpretation Comments POC-GLUCOSE METER 112 mg/dL 70-110 H TESTED AT [place] [address] ([facility]) (test code = [place] [facility] 1538) [address] POCT-GLUCOSE [id number] 22:02:00 Test Item Value Reference Range Interpretation Comments POC-GLUCOSE METER 132 mg/dL 70-110 H TESTED AT [place] [address] ([facility]) (test code = [place] [facility] 1538) [address] POCT-GLUCOSE [id number] 21:40:00 Test Item Value Reference Range Interpretation Comments POC-GLUCOSE METER 130 mg/dL 70-110 H TESTED AT [place] [address] ([facility]) (test code = [place] [facility] 1538) [address] [id number] 20:58:00 Test Item Value Reference Range Interpretation Comments POTASSIUM ([facility]) (test code = 3.9 meq/L 3.5-5.1 379) PRN - repeat potassium levels every 1 hour until glucose level is less than 450 mg/dLPOCT-GLUCOSE [id number] 20:31:00 Test Item Value Reference Range Interpretation Comments POC-GLUCOSE METER 111 mg/dL 70-110 H TESTED AT [place] [address] ([facility]) (test code = [place] [facility] 1538) [address] POCT-GLUCOSE [id number] 19:24:00 Test Item Value Reference Range Interpretation Comments POC-GLUCOSE METER 133 mg/dL 70-110 H TESTED AT [place] [address] ([facility]) (test code = [place] [facility] 1538) [address] POCT-GLUCOSE [id number] 17:41:00 Test Item Value Reference Range Interpretation Comments POC-GLUCOSE METER 140 mg/dL 70-110 H TESTED AT [place] [address] ([facility]) (test code = [facility] 1538) [address] [id number] 16:40:00 Test Item Value Reference Range Interpretation Comments POTASSIUM (BEAKER) (test code = 3.9 meq/L 3.5-5.1 379) PRN - repeat glucose levels every 1 hour or as specified by insulin titration orders until glucose level is less than 450 mg/dLCheck Serum Potassium level 2 hours after oral potassium replacement completed or 30 min after intravenous potassium replacement.[id number] 16:40:00 Test Item Value Reference Range Interpretation Comments MAGNESIUM (BEAKER) (test code = 2.0 mg/dL 1.6-2.6 627) PRN - repeat glucose levels every 1 hour or as specified by insulin titration orders until glucose level is less than 450 mg/dLCheck Serum Potassium level 2 hours after oral potassium replacement completed or 30 min after intravenous potassium replacement.[id number] 16:40:00 Test Item Value Reference Range Interpretation Comments [facility] (test code 131 mg/dL 70-105 H = 652) PRN - repeat glucose levels every 1 hour or as specified by insulin titration orders until glucose level is less than 450 mg/dLCheck Serum Potassium level 2 hours after oral potassium replacement completed or 30 min after intravenous potassium replacement.CALCIUM, [id number] 16:16:00 Test Item Value Reference Range Interpretation Comments CALCIUM IONIZED ([facility]) (test 1.06 mmol/L 1.12-1.27 L code = 698) PH, BLOOD ([facility]) (test code = 7.42 1810) Check serum Ionized Calcium level after 4 hours after IV Calcium replacement. POCT-GLUCOSE [id number] 16:13:00 Test Item Value Reference Range Interpretation Comments POC-GLUCOSE METER 131 mg/dL 70-110 H TESTED AT [place] [address] ([facility]) (test code = [facility] 1538) [address] POCT-GLUCOSE [id number] 16:13:00 Test Item Value Reference Range Interpretation Comments POC-GLUCOSE METER 133 mg/dL 70-110 H TESTED AT [place] [address] ([facility]) (test code = [facility] 1538) [address] POCT-GLUCOSE [id number] 16:13:00 Test Item Value Reference Range Interpretation Comments POC-GLUCOSE METER 89 mg/dL 70-110 TESTED AT [place] [address] ([facility]) (test code = [place] [facility] [address] 1538) POCT-GLUCOSE [id number] 16:13:00 Test Item Value Reference Range Interpretation Comments POC-GLUCOSE METER 130 mg/dL 70-110 H TESTED AT [place] [address] ([facility]) (test code = [place] [facility] 1538) [address] POCT-GLUCOSE [id number] 16:13:00 Test Item Value Reference Range Interpretation Comments POC-GLUCOSE METER 137 mg/dL 70-110 H TESTED AT [place] [address] ([facility]) (test code = [place] [facility] 1538) [address] POCT-GLUCOSE [id number] 16:13:00 Test Item Value Reference Range Interpretation Comments POC-GLUCOSE METER 131 mg/dL 70-110 H TESTED AT [place] [address] ([facility]) (test code = [place] [facility] 1538) [address] POCT-GLUCOSE [id number] 16:13:00 Test Item Value Reference Range Interpretation Comments POC-GLUCOSE METER 129 mg/dL 70-110 H TESTED AT [place] [address] ([facility]) (test code = [place] [facility] 1538) [address] POCT-GLUCOSE [id number] 16:13:00 Test Item Value Reference Range Interpretation Comments POC-GLUCOSE METER 145 mg/dL 70-110 H TESTED AT [place] [address] ([facility]) (test code = [place] [facility] 1538) [address] RAD, CHEST, 1 VIEW, NON [id number] 10:45:00Reason for exam:->NEW CENTRAL LINE INSERTION (R) [...] patchy bibasilar airspace disease. Signed: Greta Armenta MDReport Verified Date/Time: 08/21/2017 10:45:33 Reading Location: [facility] B1 C013W Consult Reading Room CBC W/PLT COUNT & AUTO [id number] 09:55:00 Test Item Value Reference Range Interpretation Comments WHITE BLOOD CELL COUNT (BEAKER) 8.5 K/ L 3.5-10.5 (test code = [...] ABSOLUTE COUNT 1.03 K/ L 1.32-3.57 L ([facility]) (test code = 414) MONOCYTES ABSOLUTE COUNT (BEAKER) 0.62 K/ L 0.30-0.82 (test code = 415) EOSINOPHILS ABSOLUTE COUNT 0.00 K/ L 0.04-0.54 L (AKER) (test code = 416) BASOPHILS ABSOLUTE COUNT (AKER) 0.02 K/ L 0.01-0.08 (test code = 417) IMMATURE GRANULOCYTES-RELATIVE 1 % 0-1 PERCENT ([facility]) (test code = 2801) POCT-GLUCOSE [id number] 08:19:00 Test Item Value Reference Range Interpretation Comments POC-GLUCOSE METER 117 mg/dL 70-110 H TESTED AT [facility] 67 ([facility]) (test code = [place] [facility] 1538) [address] POCT-GLUCOSE [id number] 08:19:00 Test Item Value Reference Range Interpretation Comments POC-GLUCOSE METER 141 mg/dL 70-110 H TESTED AT [place] [address] ([facility]) (test code = [place] [facility] 1538) [address] RAD, CHEST, 1 VIEW, NON [id number] 07:34:00Reason for exam:->ETT, CHEST TUBES, PA CATHETERShould [...] MDReport Verified Date/Time: 08/21/2017 07:34:55 Reading Location: [facility] C013W Consult Reading Room VANCOMYCIN LEVEL, [id number] 05:27:00 Test Item Value Reference Range Interpretation Comments VANCOMYCIN RANDOM (BELEM) (test 6.1 ug/mL code = 523) Reference Range: No NormalsPlease draw 30 minutes prior to vancomycin due time. Do not administer ifvancomycin trough is >20 mcg/mL. Thank you!BLOOD GAS, [id number] 05:23:00 Test Item Value Reference Range Interpretation [...] (BEAKER) (test code = 1819) 40.0 % [id number] 05:18:00 Test Item Value Reference Range Interpretation Comments PHOSPHORUS (BEAKER) (test code = 3.0 mg/dL 2.3-4.7 604) [id number] 05:18:00 Test Item Value Reference Range Interpretation Comments MAGNESIUM (BEAKER) (test code = 2.0 mg/dL 1.6-2.6 627) BASIC METABOLIC [id number] 05:18:00 Test Item Value Reference Range Interpretation [...] DIALYSIS PATIEN TS. LACTIC ACID, ARTERIAL, WHOLE [id number] 04:55:00 Test Item Value Reference Range Interpretation Comments LACTATE BLOOD ARTERIAL (2) 0.9 mmol/L 0.5-2.2 ([facility]) (test code = 2874) Effective 06/11/2015: Units/Reference Range ChangeNew: 0.5-2.2 mmol/L Previous: 5-20 mg/dLOXYGEN SATURATION, [id number] 04:42:00 Test Item Value Reference Range Interpretation Comments O2 SATURATION (MEASURED) ([facility]) 66.0 % (test code = 1455) POCT-GLUCOSE [id number] 03:44:00 Test Item Value Reference Range Interpretation Comments POC-GLUCOSE METER 161 mg/dL 70-110 H TESTED AT [place] [address] ([facility]) (test code = [place] [facility] 1538) [address] POCT-GLUCOSE [id number] 02:15:00 Test Item Value Reference Range Interpretation Comments POC-GLUCOSE METER 172 mg/dL 70-110 H TESTED AT [place] [address] ([facility]) (test code = [place] [facility] 1538) [address] POCT-GLUCOSE [id number] 02:15:00 Test Item Value Reference Range Interpretation Comments POC-GLUCOSE METER 180 mg/dL 70-110 H TESTED AT [place] [address] ([facility]) (test [facility] = [facility] [place] [facility] 1538) [address] POCT-GLUCOSE [id number] 02:15:00 Test Item Value Reference Range Interpretation Comments POC-GLUCOSE METER 176 mg/dL 70-110 H TESTED AT [place] [address] ([facility]) (test code = [facility] [place] 1538) [address] POCT-GLUCOSE [id number] 02:15:00 Test Item Value Reference Range Interpretation Comments POC-GLUCOSE METER 203 mg/dL 70-110 H TESTED AT [place] [address] ([facility]) (test code = [place] 1538) [address] POCT-GLUCOSE [id number] 02:15:00 Test Item Value Reference Range Interpretation Comments POC-GLUCOSE METER 174 mg/dL 70-110 H TESTED AT [place] [address] ([facility]) (test code = [facility] 1538) [address] CALCIUM, [id number] 00:34:00 Test Item Value Reference Range Interpretation Comments CALCIUM IONIZED (BEAKER) (test 1.09 mmol/L 1.12-1.27 L code = 698) PH, BLOOD (AKER) (test code = 7.40 1810) Check serum Ionized Calcium level after 4 hours after IV Calcium replacement. POCT-GLUCOSE [id number] 23:10:00 Test Item Value Reference Range Interpretation Comments POC-GLUCOSE METER 190 mg/dL 70-110 H TESTED AT [place] [address] ([facility]) (test code = [facility] 1538) [address] POCT-GLUCOSE [id number] 23:10:00 Test Item Value Reference Range Interpretation Comments POC-GLUCOSE METER 106 mg/dL 70-110 TESTED AT [place] [address] ([facility]) (test code = [facility] 1538) [address] POCT-GLUCOSE [id number] 23:10:00 Test Item Value Reference Range Interpretation Comments POC-GLUCOSE METER 155 mg/dL 70-110 H TESTED AT [place] [address] ([facility]) (test code = [facility] 1538) [address] [id number] 22:00:00 Test Item Value Reference Range Interpretation Comments MAGNESIUM (BEAKER) (test code = 2.0 mg/dL 1.6-2.6 627) BLOOD GAS, [id number] 21:45:00 Test Item Value Reference Range Interpretation [...] 1819) 40.0 % RAD, ABDOMEN/KUB, 1 VIEW [id number] 21:38:00Reason for exam:->corpak placementFINAL REPORT RAD, ABDOMEN/KUB, [...] MDReport Verified Date/Time: 08/20/2017 21:38:34 Reading Location: [address] Transitional Reading Room CALCIUM, [id number] 18:48:00 Test Item Value Reference Range Interpretation Comments CALCIUM IONIZED (BEAKER) (test 1.08 mmol/L 1.12-1.27 L code = 698) PH, BLOOD (BEAKER) (test code = 7.48 1810) BASIC METABOLIC [id number] 18:14:00 Test Item Value Reference Range Interpretation [...] DIALYSIS PATIEN TS. LACTIC ACID, VENOUS, WHOLE [id number] 18:07:00 Test Item Value Reference Range Interpretation Comments LACTATE BLOOD VENOUS (2) (BEAKER) 0.7 mmol/L 0.5-2.2 (test code = 2872) Effective 06/11/2015: Units/Reference Range ChangeNew: 0.5-2.2 mmol/L Previous: 5-20 mg/dLCBC W/PLT COUNT & AUTO [id number] 17:37:00 Test Item Value Reference Range Interpretation [...] 0-0 (test code = 413) BLOOD GAS, [id number] 17:06:00 Test Item Value Reference Range Interpretation [...] (BEAKER) (test code = 1819) 40.0 % [id number] 15:08:00 Test Item Value Reference Range Interpretation Comments POTASSIUM (BEAKER) (test code = 4.0 meq/L 3.5-5.1 379) Check Serum Potassium level 2 hours after oral potassium replacement completed or 30 min after intravenous potassium replacement.[id number] 15:08:00 Test Item Value Reference Range Interpretation Comments MAGNESIUM (BEAKER) (test code = 1.9 mg/dL 1.6-2.6 627) Check Serum Potassium level 2 hours after oral potassium replacement completed or 30 min after intravenous potassium replacement.CALCIUM, [id number] 14:56:00 Test Item Value Reference Range Interpretation Comments CALCIUM IONIZED (BEAKER) (test 1.07 mmol/L 1.12-1.27 L code = 698) PH, BLOOD (BEAKER) (test code = 7.43 1810) Check serum Ionized Calcium level after 4 hours after IV Calcium replacement. RAD, ABDOMEN/KUB, 1 VIEW [id number] 12:00:00Reason for exam:->corpak placementShould this be performed [...] some left basilar airspace disease. Signed: Greta Armenta MDReport Verified Date/Time: 08/20/2017 12:00:17 Reading Location: [address] Consult Reading Room POCT-GLUCOSE [id number] 11:57:00 Test Item Value Reference Range Interpretation Comments POC-GLUCOSE METER 186 mg/dL 70-110 H TESTED AT [facility] 6720 (BEAKER) (test code = [place] 1538) [address] OXYGEN SATURATION, [id number] 11:00:00 Test Item Value Reference Range Interpretation Comments O2 SATURATION (MEASURED) (BEAKER) 67.6 % (test code = 1455) CBC W/PLT COUNT & AUTO [id number] 10:47:00 Test Item Value Reference Range Interpretation [...] User comments: Slide comments:LACTIC ACID, ARTERIAL, WHOLE [id number] 09:18:00 Test Item Value Reference Range Interpretation Comments LACTATE BLOOD ARTERIAL (2) 1.0 mmol/L 0.5-2.2 (BEAKER) (test code = 2874) Effective 06/11/2015: Units/Reference Range ChangeNew: 0.5-2.2 mmol/L Previous: 5-20 mg/dLPOCT-GLUCOSE [id number] 09:15:00 Test Item Value Reference Range Interpretation Comments POC-GLUCOSE METER 220 mg/dL 70-110 H TESTED AT [place] [address] ([facility]) (test code = [facility] [place] [facility] 1538) [address] POCT-GLUCOSE [id number] 09:15:00 Test Item Value Reference Range Interpretation Comments POC-GLUCOSE METER 203 mg/dL 70-110 H TESTED AT [place] [address] ([facility]) (test code = [facility] 1538) [address] POCT-GLUCOSE [id number] 09:15:00 Test Item Value Reference Range Interpretation Comments POC-GLUCOSE METER 35 mg/dL 70-110 LL TESTED AT [place] [address] ([facility]) (test code = [facility] [address] 1538) POCT-GLUCOSE [id number] 09:15:00 Test Item Value Reference Range Interpretation Comments POC-GLUCOSE METER 110 mg/dL 70-110 TESTED AT [place] [address] ([facility]) (test code = [facility] 1538) [address] POCT-GLUCOSE [id number] 09:15:00 Test Item Value Reference Range Interpretation Comments POC-GLUCOSE METER 118 mg/dL 70-110 H TESTED AT [place] [address] ([facility]) (test code = [facility] 1538) [address] POCT-GLUCOSE [id number] 09:15:00 Test Item Value Reference Range Interpretation Comments POC-GLUCOSE METER 126 mg/dL 70-110 H TESTED AT [place] [address] ([facility]) (test code = [facility] 1538) [address] RAD, CHEST, 1 VIEW, NON [id number] 07:52:00Reason for exam:->ETT, CHEST TUBES, PA CATHETERShould this be performed at the bedside?->YesFINAL REPORT Chest one view compared to August 19 Discussion: Interstitial congestion is similar. ET tube and left IJ line again noted. Left costophrenic angle excluded from the image. No gross effusion or pneumothorax. No visible pulmonary artery access. Signed: Nisbet, Vandana MDReport Verified Date/Time: 08/20/2017 07:52:29 Reading Location: [address] Reading Room CT, BRAIN, WITHOUT [id number] 05:11:00FINAL REPORT CT, BRAIN, WITHOUT CONTRAST INDICATION: [...] MDReport Verified Date/Time: 08/20/2017 05:11:47 Reading Location: [facility] C013T Transitional Reading Room OXYGEN SATURATION, [id number] 05:10:00 Test Item Value Reference Range Interpretation Comments O2 SATURATION (MEASURED) (BEAKER) 65.8 % (test code = 1455) BLOOD GAS, [id number] 04:57:00 Test Item Value Reference Range Interpretation [...] (BEAKER) (test code = 1819) 40.0 % [id number] 04:49:00 Test Item Value Reference Range Interpretation Comments PHOSPHORUS (BEAKER) (test code = 3.9 mg/dL 2.3-4.7 604) [id number] 04:49:00 Test Item Value Reference Range Interpretation Comments MAGNESIUM (BEAKER) (test code = 2.1 mg/dL 1.6-2.6 627) BASIC METABOLIC [id number] 04:49:00 Test Item Value Reference Range Interpretation [...] APPLICABLE FOR DIALYSIS PATIEN TS. BLOOD GAS, [id number] 01:31:00 Test Item Value Reference Range Interpretation [...] 1819) 40.0 % LACTIC ACID, ARTERIAL, WHOLE [id number] 00:02:00 Test Item Value Reference Range Interpretation Comments LACTATE BLOOD ARTERIAL (2) 1.2 mmol/L 0.5-2.2 (BEAKER) (test code = 2874) Effective 06/11/2015: Units/Reference Range ChangeNew: 0.5-2.2 mmol/L Previous: 5-20 mg/[id number] 00:01:00 Test Item Value Reference Range Interpretation Comments MAGNESIUM (BEAKER) (test code = 1.7 mg/dL 1.6-2.6 627) SODIUM NA-STAT [id number] 23:24:00 Test Item Value Reference Range Interpretation Comments SODIUM (BEAKER) (test code = 381) 141 meq/L 135-148 POTASSIUM-STAT [id number] 23:24:00 Test Item Value Reference Range Interpretation Comments POTASSIUM (BEAKER) (test code = 5.3 meq/L 3.6-5.5 379) CALCIUM, [id number] 23:24:00 Test Item Value Reference Range Interpretation Comments CALCIUM IONIZED (BEAKER) (test 1.20 mmol/L 1.12-1.27 code = 698) PH, BLOOD (BEAKER) (test code = 7.39 1810) Check serum Ionized Calcium level after 4 hours after IV Calcium replacement. BLOOD GAS, [id number] 23:24:00 Test Item Value Reference Range Interpretation [...] (test code = 1819) 60.0 % GLUCOSE-STAT [id number] 23:24:00 Test Item Value Reference Range Interpretation Comments GLUCOSE RANDOM (BEAKER) (test code 204 mg/dL 70-110 H = 652) HGB/HCT (H&H) - STAT [id number] 23:24:00 Test Item Value Reference Range Interpretation Comments HEMOGLOBIN (BEAKER) (test code = 10.4 g/dL 13.0-16.8 L 410) HEMATOCRIT (BEAKER) (test code = 31.0 % 40.0-50.0 L 411) OXYGEN SATURATION, [id number] 23:23:00 Test Item Value Reference Range Interpretation Comments O2 SATURATION (MEASURED) (BEAKER) 68.4 % (test code = 1455) LACTIC ACID, ARTERIAL, WHOLE [id number] 22:05:00 Test Item Value Reference Range Interpretation Comments LACTATE BLOOD ARTERIAL (2) 1.4 mmol/L 0.5-2.2 (BEAKER) (test code = 2874) Effective 06/11/2015: Units/Reference Range ChangeNew: 0.5-2.2 mmol/L Previous: 5-20 mg/[id number] 22:03:00 Test Item Value Reference Range Interpretation Comments MAGNESIUM (BEAKER) (test code = 1.8 mg/dL 1.6-2.6 627) CALCIUM, [id number] 21:46:00 Test Item Value Reference Range Interpretation Comments CALCIUM IONIZED (BEAKER) (test 1.44 mmol/L 1.12-1.27 H code = 698) PH, BLOOD (BEAKER) (test code = 7.37 1810) BLOOD GAS, [id number] 21:44:00 Test Item Value Reference Range Interpretation [...] (test code = 1819) 50.0 % GLUCOSE-STAT [id number] 21:44:00 Test Item Value Reference Range Interpretation Comments GLUCOSE RANDOM (BEAKER) (test code 197 mg/dL 70-110 H = 652) HGB/HCT (H&H) - STAT [id number] 21:44:00 Test Item Value Reference Range Interpretation Comments HEMOGLOBIN (BEAKER) (test code = 11.3 g/dL 13.0-16.8 L 410) HEMATOCRIT (BEAKER) (test code = 33.0 % 40.0-50.0 L 411) SODIUM NA-STAT [id number] 21:43:00 Test Item Value Reference Range Interpretation Comments SODIUM (BEAKER) (test code = 381) 141 meq/L 135-148 POTASSIUM-STAT [id number] 21:43:00 Test Item Value Reference Range Interpretation Comments POTASSIUM (BEAKER) (test code = 4.6 meq/L 3.6-5.5 379) RAD, CHEST, 1 VIEW, NON [id number] 20:58:00Reason for exam:- >intubationShould this be performed at the bedside?->YesFINAL REPORT Chest, portable AP view History: Intubation Comparison: Earlier the same day at 9:11 AM IMPRESSION: The tip of the endotracheal tube is approximately 4.7 cm above the waqas. The heart is stably enlarged. Patient status post median sternotomy. There is been intervalremoval of the [place] Wool[place]-Marya catheter. Left basilar chest tubes in place. There is a trace left apical pn eumothorax. Interval placement of a left IJ central venous catheter with the distal catheter tip at the innominate SVC junction. Bibasilar atelectasis persists. Signed: [facility] Verified Date/Time: 08/19/2017 20:58:35 Reading Location: [facility] B1 [id number] Consult Reading Room OXYGEN SATURATION, [id number] 19:16:00 Test Item Value Reference Range Interpretation Comments O2 SATURATION (MEASURED) (BEAKER) 67.8 % (test code = 1455) BLOOD GAS, [id number] 19:07:00 Test Item Value Reference Range Interpretation [...] (test code = 1819) 100.0 % GLUCOSE-STAT [id number] 19:07:00 Test Item Value Reference Range Interpretation Comments GLUCOSE RANDOM (BEAKER) (test code 144 mg/dL 70-110 H = 652) POCT-GLUCOSE [id number] 17:11:00 Test Item Value Reference Range Interpretation Comments POC-GLUCOSE METER 108 mg/dL 70-110 TESTED AT [facility] 6720 (BEAKER) (test code = [place] 1538) [address] BLOOD GAS, [id number] 16:53:00 Test Item Value Reference Range Interpretation [...] code = 1819) 100.0 % BLOOD GAS, [id number] 14:09:00 Test Item Value Reference Range Interpretation [...] (test code = 1819) 44.0 % TROPONIN [id number] 12:55:00 Test Item Value Reference Range Interpretation [...] acute neurological disease, and persistent tachyarrhythmia.COMPREHENSIVE METABOLIC [id number] 12:20:00 Test Item Value Reference Range Interpretation [...] S NOT APPLICABLE FOR DIALYSIS PATIEN TS. [id number] 12:19:00 Test Item Value Reference Range Interpretation Comments MAGNESIUM (BEAKER) (test code = 1.9 mg/dL 1.6-2.6 627) BASIC METABOLIC [id number] 12:19:00 Test Item Value Reference Range Interpretation [...] DIALYSIS PATIEN TS. LACTIC ACID, ARTERIAL, WHOLE [id number] 12:16:00 Test Item Value Reference Range Interpretation Comments LACTATE BLOOD ARTERIAL (2) 3.1 mmol/L 0.5-2.2 H (BEAKER) (test code = 2874) Effective 06/11/2015: Units/Reference Range ChangeNew: 0.5-2.2 mmol/L Previous: 5-20 mg/dLCALCIUM, [id number] 12:04:00 Test Item Value Reference Range Interpretation [...] = 413) RAD, CHEST, 1 VIEW, NON [id number] 09:55:00Reason for exam:->ETT, CHEST TUBES, PA CATHETERShould this be performed at the bedside?->YesFINAL REPORT Two frontal chest images compared to August 19, 2017 Discussion: Support tubes and right IJ pulmonary catheter in place. Chest tubes are noted. Trace left apical pneumothorax. Minimal left base atelectasis. Signed: Vandana Todd Verified Date/Time: 08/19/201709:55:44 Reading Location: [facility] Radiology Reading Room LACTIC ACID, ARTERIAL, WHOLE BLOOD 2017-08-19 07:50:00 Test Item Value Reference Range Interpretation Comments LACTATE BLOOD ARTERIAL (2) 3.2 mmol/L 0.5-2.2 H (BEAKER) (test code = 2874) Effective 06/11/2015: Units/Reference Range ChangeNew: 0.5-2.2 mmol/L Previous: 5-20 mg/dLBLOOD GAS, [id number] 07:31:00 Test Item Value Reference Range Interpretation [...] 50.0 % CREATINE KINASE (CK), TOTAL AND [id number] 07:08:00 Test Item Value Reference Range Interpretation Comments CREATINE KINASE TOTAL (BEAKER) 282 U/L 29-200 H (test code = 380) CREATINE KINASE-MB (BEAKER) (test 11.5 ng/mL 0.0-6.6 H code = 750) CREATINE KINASE-MB INDEX (BEAKER) 4.1 % (test code = 395) CK-MB Reference Range:<6.7 Normal6.7-10.0 Borderline>10.0 AbnormalTROPONIN [id number] 07:04:00 Test Item Value Reference Range Interpretation Comments TROPONIN I ([facility]) (test code = 1.89 ng/mL 0.00-0.03 [facility]) Troponin I (TnI) levels must be interpreted [...] acidosis, acute neurological disease, and persistent tachyarrhythmia.POCT-GLUCOSE [id number] 06:14:00 Test Item Value Reference Range Interpretation Comments POC-GLUCOSE METER 166 mg/dL 70-110 H TESTED AT [place] [address] ([facility]) (test code = [place] [facility] 1538) [address] POCT-GLUCOSE [id number] 06:14:00 Test Item Value Reference Range Interpretation Comments POC-GLUCOSE METER 196 mg/dL 70-110 H TESTED AT [place] [address] ([facility]) (test code = [facility] 1538) [address] POCT-GLUCOSE [id number] 06:14:00 Test Item Value Reference Range Interpretation Comments POC-GLUCOSE METER 209 mg/dL 70-110 H TESTED AT [place] [address] ([facility]) (test code = [facility] [place] [facility] 1538) [address] POCT-GLUCOSE [id number] 06:14:00 Test Item Value Reference Range Interpretation Comments POC-GLUCOSE METER 259 mg/dL 70-110 H TESTED AT [place] [address] ([facility]) (test code = [facility] [place] [facility] 1538) [address] POCT-GLUCOSE [id number] 06:14:00 Test Item Value Reference Range Interpretation Comments POC-GLUCOSE METER 304 mg/dL 70-110 H TESTED AT [place] [address] ([facility]) (test code = [facility] [place] 1538) [address] POCT-GLUCOSE [id number] 06:14:00 Test Item Value Reference Range Interpretation Comments POC-GLUCOSE METER 343 mg/dL 70-110 H TESTED AT [place] [address] ([facility]) (test code = [facility] 1538) [address] OXYGEN SATURATION, [id number] 05:39:00 Test Item Value Reference Range Interpretation Comments O2 SATURATION (MEASURED) (BEAKER) 73.8 % (test code = 1455) BLOOD GAS, [id number] 05:03:00 Test Item Value Reference Range Interpretation [...] (test code = 1819) 50.0 % GLUCOSE-STAT [id number] 05:03:00 Test Item Value Reference Range Interpretation Comments GLUCOSE RANDOM (BEAKER) (test code 175 mg/dL 70-110 H = 652) HGB/HCT (H&H) - STAT [id number] 05:03:00 Test Item Value Reference Range Interpretation Comments HEMOGLOBIN (BEAKER) (test code = 11.9 g/dL 13.0-16.8 L 410) HEMATOCRIT (BEAKER) (test code = 35.0 % 40.0-50.0 L 411) CALCIUM, [id number] 05:02:00 Test Item Value Reference Range Interpretation Comments CALCIUM IONIZED (BEAKER) (test 1.21 mmol/L 1.12-1.27 code = 698) PH, BLOOD (BEAKER) (test code = 7.31 1810) Check serum Ionized Calcium level after 4 hours after IV Calcium replacement. SODIUM NA-STAT [id number] 05:01:00 Test Item Value Reference Range Interpretation Comments SODIUM (BEAKER) (test code = 381) 142 meq/L 135-148 POTASSIUM-STAT [id number] 05:01:00 Test Item Value Reference Range Interpretation Comments POTASSIUM (BEAKER) (test code = 3.6 meq/L 3.6-5.5 379) [id number] 04:59:00 Test Item Value Reference Range Interpretation Comments PHOSPHORUS (BEAKER) (test code = 2.2 mg/dL 2.3-4.7 L 604) [id number] 04:59:00 Test Item Value Reference Range Interpretation Comments MAGNESIUM (BEAKER) (test code = 2.0 mg/dL 1.6-2.6 627) BASIC METABOLIC [id number] 04:59:00 Test Item Value Reference Range Interpretation [...] DIALYSIS PATIEN TS. LACTIC ACID, ARTERIAL, WHOLE [id number] 04:53:00 Test Item Value Reference Range Interpretation Comments LACTATE BLOOD ARTERIAL (2) 7.3 mmol/L 0.5-2.2 H (BEAKER) (test code = 2874) Effective 06/11/2015: Units/Reference Range ChangeNew: 0.5-2.2 mmol/L Previous: 5-20 mg/dLCBC W/PLT COUNT & AUTO [id number] 04:52:00 Test Item Value Reference Range Interpretation [...] % 0-1 PERCENT (BEAKER) (test code = 2809) [id number] 04:50:00 Test Item Value Reference Range Interpretation Comments PARTIAL THROMBOPLASTIN TIME 35.7 seconds 22.5-36.0 (BEAKER) (test code = 760) PROTHROMBIN [id number] 04:49:00 Test Item Value Reference Range Interpretation [...] ChangeNew: 0.5-2.2 mmol/L Previous: 5-20 mg/dLBLOOD GAS, [id number] 03:33:00 Test Item Value Reference Range Interpretation [...] (test code = 1819) 50.0 % CALCIUM, [id number] 03:32:00 Test Item Value Reference Range Interpretation Comments CALCIUM IONIZED (BEAKER) (test 1.17 mmol/L 1.12-1.27 code = 698) PH, BLOOD (BEAKER) (test code = 7.37 1810) LACTIC ACID, ARTERIAL, WHOLE [id number] 01:43:00 Test Item Value Reference Range Interpretation Comments LACTATE BLOOD ARTERIAL (2) 9.2 mmol/L 0.5-2.2 H (BEAKER) (test code = 2874) Effective 06/11/2015: Units/Reference Range ChangeNew: 0.5-2.2 mmol/L Previous: 5-20 mg/[id number] 01:41:00 Test Item Value Reference Range Interpretation Comments MAGNESIUM (BEAKER) (test code = 2.3 mg/dL 1.6-2.6 627) BLOOD GAS, [id number] 01:31:00 Test Item Value Reference Range Interpretation [...] (test code = 1819) 50.0 % POTASSIUM-STAT [id number] 01:31:00 Test Item Value Reference Range Interpretation Comments POTASSIUM (BEAKER) (test code = 3.3 meq/L 3.6-5.5 L 379) GLUCOSE-STAT [id number] 01:31:00 Test Item Value Reference Range Interpretation Comments GLUCOSE RANDOM (BEAKER) (test code 236 mg/dL 70-110 H = 652) HGB/HCT (H&H) - STAT [id number] 01:31:00 Test Item Value Reference Range Interpretation Comments HEMOGLOBIN (BEAKER) (test code = 11.1 g/dL 13.0-16.8 L 410) HEMATOCRIT (BEAKER) (test code = 33.0 % 40.0-50.0 L 411) OXYGEN SATURATION, [id number] 01:28:00 Test Item Value Reference Range Interpretation Comments O2 SATURATION (MEASURED) (BEAKER) 76.9 % (test code = 1455) SODIUM NA-STAT [id number] 01:28:00 Test Item Value Reference Range Interpretation Comments SODIUM (BEAKER) (test code = 381) 144 meq/L 135-148 RAD, CHEST, 1 VIEW, NON [id number] 00:23:00Reason for exam:->s/p PA catheter placementFINAL REPORT RAD, CHEST, 1 VIEW, NON DEPT INDICATION: s/p PA catheter placement COMPARISON: Prior day's exam FINDINGS: Portable frontal view of the chest. IMPRESSION: Support Lines: Interval placement of a right IJ [place] Wool[place]-Marya catheter with tip overlying the main pulmonary [...] Vasquez Verified Date/Time: 08/19/2017 00:23:43 Reading Location: [address] Reading Room LACTIC ACID, ARTERIAL, WHOLE [id number] 23:40:00 Test Item Value Reference Range Interpretation Comments LACTATE BLOOD ARTERIAL (2) 8.7 mmol/L 0.5-2.2 H (BEAKER) (test code = 2874) Effective 06/11/2015: Units/Reference Range ChangeNew: 0.5-2.2 mmol/L Previous: 5-20 mg/dLBLOOD GAS, [id number] 23:20:00 Test Item Value Reference Range Interpretation [...] (test code = 1819) 60.0 % POTASSIUM-STAT [id number] 23:20:00 Test Item Value Reference Range Interpretation Comments POTASSIUM (BEAKER) (test code = 3.2 meq/L 3.6-5.5 L 379) GLUCOSE-STAT [id number] 23:20:00 Test Item Value Reference Range Interpretation Comments GLUCOSE RANDOM (BEAKER) (test code 282 mg/dL 70-110 H = 652) HGB/HCT (H&H) - STAT [id number] 23:20:00 Test Item Value Reference Range Interpretation Comments HEMOGLOBIN (BEAKER) (test code = 10.7 g/dL 13.0-16.8 L 410) HEMATOCRIT (BEAKER) (test code = 31.0 % 40.0-50.0 L 411) CALCIUM, [id number] 23:20:00 Test Item Value Reference Range Interpretation Comments CALCIUM IONIZED (BEAKER) (test 1.10 mmol/L 1.12-1.27 L code = 698) PH, BLOOD (BEAKER) (test code = 7.36 1810) Check serum Ionized Calcium level after 4 hours after IV Calcium replacement. SODIUM NA-STAT [id number] 23:19:00 Test Item Value Reference Range Interpretation Comments SODIUM (BEAKER) (test code = 381) 144 meq/L 135-148 OXYGEN SATURATION, [id number] 23:19:00 Test Item Value Reference Range Interpretation Comments O2 SATURATION (MEASURED) (BEAKER) 79.6 % (test code = 1455) BLOOD GAS, [id number] 22:12:00 Test Item Value Reference Range Interpretation [...] 60.0 % RAD, CHEST, 1 VIEW, NON [id number] 20:42:00Reason for exam:->s/p ACBFINAL REPORT Chest, 1 [...] pleural effusion. No pneumothorax. Signed: Audrey Vasquez MDReport Verified Date/Time: 08/18/2017 20:42:09 Reading Location: [address] Reading Room BLOOD GAS, ARTERIAL 2017-08-18 [...] 37.0 C (test code = 1818) GLUCOSE-STAT [id number] 20:27:00 Test Item Value Reference Range Interpretation Comments GLUCOSE RANDOM (BEAKER) (test code 319 mg/dL 70-110 H = 652) HGB/HCT (H&H) - STAT [id number] 20:27:00 Test Item Value Reference Range Interpretation Comments HEMOGLOBIN (BEAKER) (test code = 12.2 g/dL 13.0-16.8 L 410) HEMATOCRIT (BEAKER) (test code = 36.0 % 40.0-50.0 L 411) CALCIUM, [id number] 20:26:00 Test Item Value Reference Range Interpretation Comments CALCIUM IONIZED (BEAKER) (test 1.23 mmol/L 1.12-1.27 code = 698) PH, BLOOD (BEAKER) (test code = 7.24 1810) SODIUM NA-STAT [id number] 20:26:00 Test Item Value Reference Range Interpretation Comments SODIUM (BEAKER) (test code = 381) 142 meq/L 135-148 POTASSIUM-STAT [id number] 20:26:00 Test Item Value Reference Range Interpretation Comments POTASSIUM (BEAKER) (test code = 3.6 meq/L 3.6-5.5 379) CBC W/PLT COUNT & AUTO [id number] 20:13:00 Test Item Value Reference Range Interpretation [...] = 3438) Received comment: User comments: Slide comments:[id number] 20:06:00 Test Item Value Reference Range Interpretation Comments MAGNESIUM (BEAKER) (test code = 2.4 mg/dL 1.6-2.6 627) BASIC METABOLIC [id number] 20:06:00 Test Item Value Reference Range Interpretation [...] DIALYSIS PATIEN TS. LACTIC ACID, ARTERIAL, WHOLE [id number] 20:02:00 Test Item Value Reference Range Interpretation Comments LACTATE BLOOD ARTERIAL (2) 4.9 mmol/L 0.5-2.2 H (BEAKER) (test code = 2874) Effective 06/11/2015: Units/Reference Range ChangeNew: 0.5-2.2 mmol/L Previous: 5-20 mg/dLPROTHROMBIN [id number] 19:51:00 Test Item Value Reference Range Interpretation Comments PROTIME (BEAKER) (test code = 16.4 seconds 11.7-14.7 H 759) INR (BEAKER) (test code = 370) 1.3 <=5.9 RECOMMENDED COUMADIN/WARFARIN INR THERAPY RANGESSTANDARD DOSE: 2.0 - 3.0 Includes: PROPHYLAXIS forvenous thrombosis, systemic embolization; TREATMENT for venous thrombosis and/or pulmonary embolus.HIGH RISK: Target INR is 2.5-3.5 for patients with mechanical heart valves.[id number] 19:51:00 Test Item Value Reference Range Interpretation Comments FIBRINOGEN LEVEL (BEAKER) (test 331 mg/dl 225-434 code = 658) [id number] 19:51:00 Test Item Value Reference Range Interpretation Comments PARTIAL THROMBOPLASTIN TIME 31.1 seconds 22.5-36.0 (BEAKER) (test code = 760) OXYGEN SATURATION, [id number] 19:44:00 Test Item Value Reference Range Interpretation Comments O2 SATURATION (MEASURED) (BEAKER) 76.2 % (test code = 1455) BLOOD GAS, [id number] 19:43:00 Test Item Value Reference Range Interpretation [...] (BEAKER) (test code = 1819) 60.0 % [id number] 19:07:00 Test Item Value Reference Range Interpretation Comments ACTIVATED CLOTTING TIME 120 sec TEST ED AT [place] [address] ([facility]) (test code = [place] [address]) [address] [id number] 19:07:00 Test Item Value Reference Range Interpretation Comments ACTIVATED CLOTTING TIME 439 sec TEST ED AT [place] [address] ([facility]) (test code = [place] [address]) [address] [id number] 19:07:00 Test Item Value Reference Range Interpretation Comments ACTIVATED CLOTTING TIME 433 sec TEST ED AT [place] [address] ([facility]) (test code = [place] [address]) [address] [id number] 19:07:00 Test Item Value Reference Range Interpretation Comments ACTIVATED CLOTTING TIME 378 sec TEST ED AT [place] [address] ([facility]) (test code = [place] [address]) [address] [id number] 19:07:00 Test Item Value Reference Range Interpretation Comments ACTIVATED CLOTTING TIME 422 sec TEST ED AT [facility] 6720 ([facility]) (test code = [place] [address]) [address] THROMBOELASTOGRAPH (TEG)2017-08-18 18:59:00 Test Item Value Reference Range Interpretation Comments TEG ACTIVATED CLOTTING TIME 4.3 minutes 4.0-7.0 (BEAKER) (test code = 1407) TEG FIBRINOGEN ACTIVITY (BEAKER) 72.3 degrees 61.0-73.0 (test code = 1408) TEG PLT. AGGREGATION (BEAKER) 61.4 MM 55.0-65.0 (test code = 1409) TGH ACTIVATED CLOTTING TIME 4.6 minutes 4.0-7.0 (BEAKER) (test code = 1411) TGH FIBRINOGEN ACTIVITY (BEAKER) 74.0 degrees 61.0-73.0 H (test code = 1412) TGH PLT. AGGREGATION (BEAKER) 68.0 MM 55.0-65.0 H (test code = 1413) PROTHROMBIN [id number] 18:36:00 Test Item Value Reference Range Interpretation Comments PROTIME (BEAKER) (test code = 18.2 seconds 11.7-14.7 H 759) INR (BEAKER) (test code = 370) 1.5 <=5.9 RECOMMENDED COUMADIN/WARFARIN INR THERAPY RANGESSTANDARD DOSE: 2.0 - 3.0 Includes: PROPHYLAXIS forvenous thrombosis, systemic embolization; TREATMENT for venous thrombosis and/or pulmonary embolus.HIGH RISK: Target INR is 2.5-3.5 for patients with mechanical heart valves.[id number] 18:36:00 Test Item Value Reference Range Interpretation Comments FIBRINOGEN LEVEL (BEAKER) (test 276 mg/dl 225-434 code = 658) [id number] 18:36:00 Test Item Value Reference Range Interpretation Comments PARTIAL THROMBOPLASTIN TIME 32.8 seconds 22.5-36.0 (BEAKER) (test code = 760) PLATELET [id number] 18:29:00 Test Item Value Reference Range Interpretation Comments PLATELET COUNT (BEAKER) (test 178 K/CU MM 150-450 code = 756) BLOOD GAS, [id number] 18:14:00 Test Item Value Reference Range Interpretation [...] (test code = 1819) 100.0 % GLUCOSE-STAT [id number] 18:14:00 Test Item Value Reference Range Interpretation Comments GLUCOSE RANDOM (BEAKER) (test code 330 mg/dL 70-110 H = 652) HGB/HCT (H&H) - STAT [id number] 18:14:00 Test Item Value Reference Range Interpretation Comments HEMOGLOBIN (BEAKER) (test code = 11.1 g/dL 13.0-16.8 L 410) HEMATOCRIT (BEAKER) (test code = 33.0 % 40.0-50.0 L 411) SODIUM NA-STAT [id number] 18:12:00 Test Item Value Reference Range Interpretation Comments SODIUM (BEAKER) (test code = 381) 138 meq/L 135-148 POTASSIUM-STAT [id number] 18:12:00 Test Item Value Reference Range Interpretation Comments POTASSIUM (BEAKER) (test code = 3.7 meq/L 3.6-5.5 379) CALCIUM, [id number] 18:12:00 Test Item Value Reference Range Interpretation Comments CALCIUM IONIZED (BEAKER) (test 1.18 mmol/L 1.12-1.27 code = 698) PH, BLOOD (BEAKER) (test code = 7.24 1810) BLOOD GAS, [id number] 17:05:00 Test Item Value Reference Range Interpretation [...] (test code = 1819) 70.0 % GLUCOSE-STAT [id number] 17:05:00 Test Item Value Reference Range Interpretation Comments GLUCOSE RANDOM (BEAKER) (test code 320 mg/dL 70-110 H = 652) HGB/HCT (H&H) - STAT [id number] 17:05:00 Test Item Value Reference Range Interpretation Comments HEMOGLOBIN (BEAKER) (test code = 10.8 g/dL 13.0-16.8 L 410) HEMATOCRIT (BEAKER) (test code = 32.0 % 40.0-50.0 L 411) SODIUM NA-STAT [id number] 17:04:00 Test Item Value Reference Range Interpretation Comments SODIUM (BEAKER) (test code = 381) 135 meq/L 135-148 POTASSIUM-STAT [id number] 17:04:00 Test Item Value Reference Range Interpretation Comments POTASSIUM (BEAKER) (test code = 5.4 meq/L 3.6-5.5 379) BLOOD GAS, [id number] 16:34:00 Test Item Value Reference Range Interpretation [...] code = 1819) 60.0 % SODIUM NA-STAT [id number] 16:34:00 Test Item Value Reference Range Interpretation Comments SODIUM (BEAKER) (test code = 381) 134 meq/L 135-148 L POTASSIUM-STAT [id number] 16:34:00 Test Item Value Reference Range Interpretation Comments POTASSIUM (BEAKER) (test code = 5.7 meq/L 3.6-5.5 H 379) GLUCOSE-STAT [id number] 16:34:00 Test Item Value Reference Range Interpretation Comments GLUCOSE RANDOM (BEAKER) (test code 266 mg/dL 70-110 H = 652) HGB/HCT (H&H) - STAT [id number] 16:34:00 Test Item Value Reference Range Interpretation Comments HEMOGLOBIN (BEAKER) (test code = 11.5 g/dL 13.0-16.8 L 410) HEMATOCRIT (BEAKER) (test code = 34.0 % 40.0-50.0 L 411) POTASSIUM-STAT [id number] 16:04:00 Test Item Value Reference Range Interpretation Comments POTASSIUM (BEAKER) (test code = 4.4 meq/L 3.6-5.5 379) BLOOD GAS, [id number] 16:04:00 Test Item Value Reference Range Interpretation [...] code = 1819) 60.0 % SODIUM NA-STAT [id number] 16:04:00 Test Item Value Reference Range Interpretation Comments SODIUM (BEAKER) (test code = 381) 134 meq/L 135-148 L GLUCOSE-STAT [id number] 16:04:00 Test Item Value Reference Range Interpretation Comments GLUCOSE RANDOM (BEAKER) (test code 275 mg/dL 70-110 H = 652) HGB/HCT (H&H) - STAT [id number] 16:04:00 Test Item Value Reference Range Interpretation Comments HEMOGLOBIN (BEAKER) (test code = 11.5 g/dL 13.0-16.8 L 410) HEMATOCRIT (BEAKER) (test code = 34.0 % 40.0-50.0 L 411) BLOOD GAS, [id number] 15:18:00 Test Item Value Reference Range Interpretation [...] (test code = 1819) 100.0 % GLUCOSE-STAT [id number] 15:18:00 Test Item Value Reference Range Interpretation Comments GLUCOSE RANDOM (BEAKER) (test code 200 mg/dL 70-110 H = 652) SODIUM NA-STAT [id number] 15:17:00 Test Item Value Reference Range Interpretation Comments SODIUM (BEAKER) (test code = 381) 141 meq/L 135-148 POTASSIUM-STAT [id number] 15:17:00 Test Item Value Reference Range Interpretation Comments POTASSIUM (BEAKER) (test code = 4.6 meq/L 3.6-5.5 379) HGB/HCT (H&H) - STAT [id number] 15:17:00 Test Item Value Reference Range Interpretation Comments HEMOGLOBIN ([facility]) (test code = 16.6 g/dL 13.0-16.8 410) HEMATOCRIT ([facility]) (test code = 49.0 % 40.0-50.0 411) POCT-GLUCOSE [id number] 12:49:00 Test Item Value Reference Range Interpretation Comments POC-GLUCOSE METER 208 mg/dL 70-110 H TESTED AT [place] [address] ([facility]) (test code = [place] [address]) [address] HEMOGLOBIN [id number] 11:52:00 Test Item Value Reference Range Interpretation Comments HEMOGLOBIN A1C ([facility]) (test code = 10.8 % 4.3-6.1 H 368) RAD, CHEST, 2 [id number] 10:32:00Reason for exam:->Pre opFINAL REPORT Chest two views Discussion: Heart, lungs, bones, soft tissues unremarkable. No effusion or pneumothorax. Signed: Vandana Todd Verified Date/Time: 08/18/2017 10:32:09 Reading Location: [facility] Radiology Reading Room POCT-GLUCOSE [id number] 08:56:00 Test Item Value Reference Range Interpretation Comments POC-GLUCOSE METER 199 mg/dL 70-110 H TESTED AT [place] [address] ([facility]) (test code = [place] [facility] 1538) [address] TSH/FREE T4 IF [id number] 05:00:00 Test Item Value Reference Range Interpretation Comments THYROID STIMULATING HORMONE 1.14 uIU/mL 0.35-4.94 ([facility]) (test code = 772) LIPID [id number] 04:46:00 Test Item Value Reference Range Interpretation Comments TRIGLYCERIDES ([facility]) (test code = 336 mg/dL 540) CHOLESTEROL ([facility]) (test code = 215 mg/dL 631) HDL CHOLESTEROL ([facility]) (test code 28 mg/dL = 976) LDL CHOLESTEROL CALCULATED ([facility]) 120 mg/dL (test code = 633) Triglyceride Reference Range: Low Risk <150 Borderline 150-199 High Risk 200-499 Very High Risk >=500Cholesterol Reference Range: Low Risk <200 Borderline 200-239 High Risk >240HDL Cholesterol Reference Range: Low Risk >=60 High Risk <40LDL Cholesterol Reference Range: Optimal <100 Near Optimal 100-129 Borderline 130-159 High 160-189 Very High >=190BASIC METABOLIC [id number] 04:46:00 Test Item Value Reference Range Interpretation [...] PATIEN TS. CBC W/PLT COUNT & AUTO [id number] 04:16:00 Test Item Value Reference Range Interpretation [...] PERCENT (BEAKER) (test code = 2801) TROPONIN [id number] 22:40:00 Test Item Value Reference Range Interpretation [...] failure, acidosis, acute neurological disease, and persistent tachyarrhythmia.[id number] 22:34:00 Test Item Value Reference Range Interpretation Comments MAGNESIUM (BEAKER) (test code = 2.2 mg/dL 1.6-2.6 627) BASIC METABOLIC [id number] 22:34:00 Test Item Value Reference Range Interpretation [...] APPLICABLE FOR DIALYSIS PATIEN TS. HEPATIC FUNCTION [id number] 22:34:00 Test Item Value Reference Range Interpretation [...] = 19 U/L 6-55 347) Specimen slightly lipemicPT/[id number] 22:08:00 Test Item Value Reference Range Interpretation [...] NEUTROPHILS ABSOLUTE COUNT 5.01 K/ L 1.78-5.38 ([facility]) (test code = 670) LYMPHOCYTES ABSOLUTE COUNT 2.12 K/ L 1.32-3.57 ([facility]) (test code = 414) MONOCYTES ABSOLUTE COUNT (AKER) 0.52 K/ L 0.30-0.82 (test code = 415) EOSINOPHILS ABSOLUTE COUNT 0.11 K/ L 0.04-0.54 ([facility]) (test code = 416) BASOPHILS ABSOLUTE COUNT ([facility]) 0.04 K/ L 0.01-0.08 (test code = 417) IMMATURE GRANULOCYTES-RELATIVE 0 % 0-1 PERCENT ([facility]) (test code = 2808) POCT-GLUCOSE [id number] 21:20:00 Test Item Value Reference Range Interpretation Comments POC-GLUCOSE METER 235 mg/dL 70-110 H TESTED AT [facility] 6720 ([facility]) (test code = NORA SERRANO 1538) [address]
--- NOTE | 2021-03-17 14:18 | RAD REPORT ---
EXAM DESCRIPTION: RAD - Chest Single View - 03/17/2021 2:10 pm CLINICAL HISTORY: SOB COMPARISON: October 2020 TECHNIQUE: AP portable chest image was obtained 03/17/2021 2:10 pm . FINDINGS: Lung volumes are low. Defibrillator remains in place. Sternotomy wires are in place. Cardi ac silhouette is enlarged but not substantially different from comparison. Central vasculature is enl arged. Patient has bilateral pleural effusions, right greater than left with bibasilar lung parenchym al opacification that could be infiltrate and/ or atelectasis. Additional patchy airspace opacificati on present in the mid left lung field. No pneumothorax. No acute bony abnormality seen. No acute aort ic findings suspected. IMPRESSION: Cardiomegaly, vascular engorgement and bilateral pleural effusions suspicious for mild f ailure/ volume overload. Patient also has airspace opacification in the mid left lung field. This could also be alveolar edema related to failure/ volume overload. However, left midlung field pneumonia is possible and needs cor relation with clinical and laboratory findings.
[2021-03-17 14:23] LABS: Absolute Lymphocytes (CBC) 2.5 K/uL (0.7-4.9); Hematocrit 47.2 % (39.6-49.0); Lymphocytes % 31.2 % (15.3-44.8); MPV 9.9 fL (7.6-11.3); RBC Red Blood Cell Count 5.13 M/uL (4.33-5.43)
[2021-03-17 14:24] LABS: Protime INR 1.17
[2021-03-17 14:46] LABS: Albumin 2.9 g/dL (3.4-5.0); Bilirubin Direct 0.5 mg/dL (0-0.2); Bilirubin Total 1.1 mg/dL (0.2-1.0); Potassium 4.5 mmol/L (3.5-5.1); Protein, Total 6.8 g/dL (6.4-8.2)
[2021-03-17 15:04] LABS: Troponin High Sensitivity 59.3 pg/mL (<58.9)
[2021-03-17] MEDS ORDERED: FUROSEMIDE 40 MG/4 ML VIAL ONE (15:11)
--- NOTE | 2021-03-17 16:50 | RAD REPORT ---
EXAM DESCRIPTION: CT - Thorax Wo Con - 03/17/2021 4:31 pm CLINICAL HISTORY: Cough, SOB COMPARISON: Chest For Pe Angio dated 09/09/2020; Thorax Wo Con dated 09/21/2015; Chest Single View date d 03/17/2021 TECHNIQUE: Axial 5 mm thick images of the chest were obtained without IV contrast. All CT scans are performed using dose optimization technique as appropriate and may include automated exposure control or mA/KV adjustment according to patient size. FINDINGS: No focal consolidation or mass lesion identifiable. Scattered ground-glass opacities are p resent in the posterior aspect of each upper lobe. There is substantial atelectasis of each lower lob e and partial atelectasis of the right middle lobe. No pneumothorax is present. Moderately large bila teral pleural effusions are present. No abnormal mediastinal or hilar masses or lymphadenopathy seen. No gross aortic or pulmonary artery finding suspected. Assessment is limited in the absence of IV contrast. Cardiomegaly is present with out pericardial effusion. Pacemaker lead in place. Dense coronary artery calcifications are present. No chest wall mass or abnormal axillary lymphadenopathy. Limited upper abdomen imaging shows ascites. There is slight nodularity to the liver capsule. Abdomen imaging is very limited. IMPRESSION: Moderately large bilateral pleural effusions are present with significant atelectasis ch mounika in each lower lobe. Interstitial thickening and scattered alveolar opacities are present all believed to be part of a CHF /volume overload process.
[2021-03-17 16:54] LABS: SARS-COV-2 RT PCR NEGATIVE (NEGATIVE)
[2021-03-17] MEDS ORDERED: ALBUTEROL 2.5 MG/3 ML NEB SOL ONE (16:56)
--- NOTE | 2021-03-17 17:46 | ER ---
Nurse's Notes [facility] Name: Jersey De Leon Jr Age: 66 yrs Sex: Male : 1955 Arrival Date: 03/17/2021 Time: 12:37 Bed 25 Private MD: Moi Berry R Diagnosis: Acute on chronic combined systolic (congestive) and diastolic (congestive) heart failure Presentation: 03/17 12:48 Chief complaint: Spouse and/or significant other states: He had and echo at [facility] in [address] this morning and they were going to admit him there but we asked if we could come closer to home instead so they let us come here. His legs are weeping and he has fluid around his heart. Coronavirus screen: At this time, the client does not indicate any symptoms associated with coronavirus-19. Ebola Screen: No symptoms or risks identified at this time. Initial Sepsis Screen: Does the patient meet any 2 criteria? No. Patient's initial sepsis screen is negative. Does the patient have a suspected source of infection? No. Patient's initial sepsis screen is negative. Risk Assessment: Do you want to hurt yourself or someone else? Patient reports no desire to harm self or others. Onset of symptoms is unknown. 12:48 Method Of Arrival: Wheelchair [facility] 12:48 Acuity: RODERICK 3 jl7 Triage Assessment: 12:50 General: Appears in no apparent distress. uncomfortable, Behavior is calm, cooperative, jl7 appropriate for age. Pain: Denies pain. Neuro: Reports weakness all over. Historical: - Allergies: 12:50 Morphine; jl7 12:50 Paxil; jl7 - PMHx: 12:50 CAD; Diabetes - NIDDM; High Cholesterol; Kidney stones; Leukemia; jl7 - Immunization history:: Client reports having NOT received the Covid vaccine. - Social history:: Smoking status: Patient reports the use of cigarette tobacco products, smokes one-half pack cigarettes per day. Screenin:00 Abuse screen: Denies threats or abuse. Denies injuries from another. Nutritional cb5 screening: No deficits noted. Tuberculosis screening: No symptoms or risk factors identified. Fall Risk None identified. Assessment: 13:50 General: Appears in no apparent distress. comfortable, Behavior is calm, cooperative, cb5 appropriate for age. Pain: Denies pain. Neuro: No deficits noted. Cardiovascular: Reports pt states he was informed there is fluid around his heart. Respiratory: Reports shortness of breath cough that is. GI: Abdomen is round non-distended. : Denies. EENT: Denies. Derm: Skin is fragile, with poor turgor. Musculoskeletal: No deficits noted. 13:58 General: Appears in no apparent distress. comfortable, Behavior is calm, cooperative, cb5 appropriate for age. Pain: Denies pain. Neuro: No deficits noted. 15:00 Reassessment: Patient and/or family updated on plan of care and expected duration. Pain cb5 level reassessed. 15:18 Reassessment: pt was sitting on side of bed leaning on , informed pt to please stay cb5 in bed so he doesn't fall. pt stated "If I fall it will be on my ". Educated patient to why he needs to stay in bed, for safety purposes. . 17:17 Reassessment: Patient and/or family updated on plan of care and expected duration. Pain cb5 level reassessed. 19:30 Reassessment: Dr. Jovan kong. General: Appears in no apparent distress. tk1 comfortable, well groomed, well developed, emaciated, well nourished, Behavior is calm, cooperative, appropriate for age. Pain: Denies pain. Neuro: Level of Consciousness is awake, alert, obeys commands, Oriented to person, place, time, situation, Appropriate for age Software Developer Manager are equal bilaterally Moves all extremities. Full function Gait is unsteady, Speech is normal, Facial symmetry appears normal. Cardiovascular: Reports None Denies chest pain, shortness of breath, Heart tones S1 S2 Rhythm is sinus rhythm with unifocal PVCs. Respiratory: Reports cough that is persistent Airway is patent Respiratory effort is even, unlabored, Respiratory pattern is regular, symmetrical, Breath sounds are coarse bilaterally. GI: No deficits noted. No signs and/or symptoms were reported involving the gastrointestinal system. Abdomen is round non-distended. : No deficits noted. No signs and/or symptoms were reported regarding the genitourinary system. EENT: No deficits noted. No signs and/or symptoms were reported regarding the EENT system. Derm: Skin is intact, with poor turgor. Musculoskeletal: No deficits noted. No signs and/or symptoms reported regarding the musculoskeletal system. 20:45 Reassessment: No changes from previously documented assessment. Patient and/or family tk1 updated on plan of care and expected duration. Pain level reassessed. Reassessment: Patient is alert, oriented x 3, equal unlabored respirations, skin warm/dry/pink. 21:23 Reassessment: Patient transferred via WC with tech to RM 211. tk1 Vital Signs: 12:48 BP 119 / 87; Pulse 111; Resp 17; Temp 97.6; Pulse Ox 98% ; Weight 98.43 kg; Height 6 jl7 ft. 1 in. (185.42 cm); Pain 0/10; 14:45 BP 100 / 83; Pulse 98; Resp 16; Pulse Ox 95% ; Pain 0/10; cb5 16:56 BP 112 / 86; Pulse 88; Resp 16; Pulse Ox 98% ; Pain 0/10; cb5 18:51 BP 114 / 83; Pulse 95; Resp 16; Pulse Ox 92% ; Pain 0/10; cb5 19:30 BP 112 / 83 RA Supine (auto/reg); Pulse 95 MON; Resp 18; Temp 98(O); Pulse Ox 99% on tk1 R/A; Pain 0/10; 12:48 Body Mass Index 28.63 (98.43 kg, 185.42 cm) jl7 Vitals: 19:30 Cardiac Rhythm Assessment Regular Sinus rhythm W/unifocal PVC's. tk1 Gene Coma Score: 19:30 Eye Response: spontaneous(4). Verbal Response: oriented(5). Motor Response: obeys tk1 commands(6). Total: 15. ED Course: 12:37 Patient arrived in ED. am2 12:38 Moi Berry MD is Private Physician. am2 12:50 Triage completed. jl7 12:51 Arm band placed on right wrist. jl7 13:30 Brent Bentley NP is PHCP. pm1 13:30 Lyssa Ramos MD is Attending Physician. pm1 13:45 Macrina Blair, STAN is Primary Nurse. cb5 14:00 Patient has correct armband on for positive identification. Bed in low position. Call cb5 light in reach. Side rails up X 1. 14:00 No provider procedures requiring assistance completed. cb5 14:10 XRAY Chest (1 view) In Process Unspecified. EDMS 14:12 LFT's Sent. cb5 14:13 Magnesium Sent. cb5 14:13 NT PRO-BNP Sent. cb5 14:13 PT-INR Sent. cb5 14:13 Troponin HS Sent. cb5 14:13 CBC with Automated Diff Sent. cb5 14:13 Basic Metabolic Panel Sent. cb5 14:13 Basic Metabolic Panel Sent. cb5 14:13 CBC with Diff Sent. cb5 16:30 CT Chest Wo Con In Process Unspecified. EDMS 17:44 Lyssa Peterson MD is Hospitalizing Provider. pm1 19:06 Report given to Javier Myers cb5 19:14 Primary Nurse role handed off by Macrina Blair, RN cs9 19:30 Lucia Bazan is Primary Nurse. tk1 19:30 quality assurance monitor on. Pulse ox on. NIBP on. Door closed. Lights dimmed. tk1 19:30 IV is patent, is intact, with fluids infusing freely, with good blood return, Flushed tk1 left antecubital with 5 ml normal saline. Oxygen administration via nasal cannula \\T\\ 2L/min Response to oxygen therapy: symptoms improved. Administered Medications: 15:10 Drug: Lasix (furosemide) 40 mg Route: IVP; Site: left antecubital; cb5 19:38 Follow up: Urine output 250 ml; Response: No adverse reaction tk1 17:00 Drug: Albuterol 5 mg Route: Inhalation; cb5 Output: 19:30 Urine: 250ml (Voided); Total: 250ml. tk1 19:38 Urine: 250ml; Total: 500ml. tk1 Outcome: 17:45 Decision to Hospitalize by Provider. pm1 21:00 Admitted to Med/surg Report called to Called [facility] to give report STAN [place]. tk1 21:00 Condition: stable 21:24 Patient left the ED. tk1 Signatures: Dispatcher [employer] EDSC Brent Bentley, SHOP WORKER SHOP WORKER pm1 Can Curtis, RN RN [email or web address] Patti Arreola Christine cs9 Lucia Bazan tk1 Macrina Blair, RN RN cb5 Corrections: (The following items were deleted from the chart) 21:23 21:20 Reassessment: No changes from previously documented assessment. Patient and/or tk1 family updated on plan of care and expected duration. Pain level reassessed. Patient is alert, oriented x 3, equal unlabored respirations, skin warm/dry/pink. tk1
--- NOTE | 2021-03-17 17:46 | EDPHYS ---
Physician Documentation [facility] Name: Jersey De Leon Jr Age: 66 yrs Sex: Male : 1955 Arrival Date: 03/17/2021 Time: 12:37 Bed 25 Private MD: Moi Berry R ED Physician Lyssa Ramos HPI: 03/17 13:51 This 66 yrs old Male presents to ER via Wheelchair with complaints of fluid, Weakness - pm1 leg. 13:51 The patient has shortness of breath at rest. Onset: The symptoms/episode began/occurred pm1 1 month(s) ago, and became worse 3 day(s) ago. 13:51 Duration: The symptoms are continuous, and are steadily getting worse. The patient's pm1 shortness of breath is aggravated by possibly from decreased dosage fo lasix. Associated signs and symptoms: Pertinent positives: productive cough, Pertinent negatives: chest pain, fever, nausea, vomiting. Associated signs and symptoms: Pertinent positives: pedal edema. Severity of symptoms: in the emergency department the symptoms are worse Pain is currently a 0 / 10. The patient has been recently seen by a physician: Mat Gutiérrez. 13:51 Patient had an echocardiogram with Dr. Seth today in the [facility] and was advised pm1 to go to the ER in the [facility] and be admitted. Patient refused to be transferred to the ER and wanted to be admitted in [place]. Patient's were told to be admitted because he has a pericardial effusion but the echo result show no pericardial effusion present. Historical: - Allergies: 12:50 Morphine; jl7 12:50 Paxil; jl7 - PMHx: 12:50 CAD; Diabetes - NIDDM; High Cholesterol; Kidney stones; Leukemia; jl7 - Immunization history:: Client reports having NOT received the Covid vaccine. - Social history:: Smoking status: Patient reports the use of cigarette tobacco products, smokes one-half pack cigarettes per day. ROS: 13:51 Constitutional: Negative for fever, chills, and weight loss. pm1 13:51 Abdomen/GI: Negative for abdominal pain, nausea, vomiting, diarrhea, and constipation, Back: Negative for injury and pain, MS/Extremity: Negative for injury and deformity. 13:51 Neuro: Negative for headache, weakness, numbness, tingling, and seizure. 13:51 Cardiovascular: Positive for edema, Negative for chest pain. 13:51 Respiratory: Positive for cough, with white sputum, shortness of breath. 13:51 Skin: Positive for weeping from bilateral lower extremities. 13:51 All other systems are negative. Exam: 13:51 Constitutional: This is a well developed, well nourished patient who is awake, alert, pm1 and in no acute distress. Head/Face: Normocephalic, atraumatic. 13:51 Back: No spinal tenderness. No costovertebral tenderness. Full range of motion. Skin: Warm, dry with normal turgor. Normal color with no rashes, no lesions, and no evidence of cellulitis. MS/ Extremity: Pulses equal, no cyanosis. Neurovascular intact. Full, normal range of motion. 13:51 Eyes: Exam is negative for acute changes, Periorbital structures: Extraocular movements: no acute changes, Sclera: no acute changes, icterus, is not appreciated. 13:51 Cardiovascular: Exam negative for acute changes, Rate: tachycardic, Rhythm: regular, Pulses: no pulse deficits are appreciated, Edema: 2+ edema to level of left lower thigh, left midcalf, right lower thigh and right midcalf. 13:51 Respiratory: the patient does not display signs of respiratory distress, Respirations: no acute changes, Breath sounds: decreased breath sounds, are located in both bases, rhonchi. 13:51 Neuro: Exam negative for acute changes, Orientation: is normal, Mentation: is normal, Motor: is normal, moves all fours. Vital Signs: 12:48 BP 119 / 87; Pulse 111; Resp 17; Temp 97.6; Pulse Ox 98% ; Weight 98.43 kg; Height 6 jl7 ft. 1 in. (185.42 cm); Pain 0/10; 14:45 BP 100 / 83; Pulse 98; Resp 16; Pulse Ox 95% ; Pain 0/10; cb5 16:56 BP 112 / 86; Pulse 88; Resp 16; Pulse Ox 98% ; Pain 0/10; cb5 18:51 BP 114 / 83; Pulse 95; Resp 16; Pulse Ox 92% ; Pain 0/10; cb5 19:30 BP 112 / 83 RA Supine (auto/reg); Pulse 95 MON; Resp 18; Temp 98(O); Pulse Ox 99% on tk1 R/A; Pain 0/10; 12:48 Body Mass Index 28.63 (98.43 kg, 185.42 cm) jl7 [place] Coma Score: 19:30 Eye Response: spontaneous(4). Verbal Response: oriented(5). Motor Response: obeys tk1 commands(6). Total: 15. MDM: 13:48 Patient medically screened. pm1 17:44 Data reviewed: vital signs. Data interpreted: Pulse oximetry: on room air is 98 %. pm1 Interpretation: normal. Counseling: I had a detailed discussion with the patient and/or guardian regarding: the historical points, exam findings, and any diagnostic results supporting the discharge/admit diagnosis, lab results, radiology results, the need for further work-up and treatment in the hospital. 03/17 13:51 Order name: Basic Metabolic Panel pm1 03/17 13:51 Order name: CBC with Diff pm1 03/17 13:51 Order name: LFT's pm1 03/17 13:51 Order name: Magnesium pm1 03/17 13:51 Order name: NT PRO-BNP pm1 03/17 13:51 Order name: PT-INR; Complete Time: 14:31 pm1 03/17 13:51 Order name: Troponin HS pm1 03/17 13:51 Order name: XRAY Chest (1 view); Complete Time: 14:31 pm1 03/17 13:52 Order name: Basic Metabolic Panel EDMS 03/17 13:52 Order name: CBC with Automated Diff; Complete Time: 14:31 EDHI 03/17 15:36 Order name: COVID-19/FLU A+B (Document "Date of Onset" if Symptomatic); Complete Time: pm1 16:56 08 15:40 Order name: CT Chest Wo Con; Complete Time: 16:55 pm1 03/17 13:51 Order name: EKG; Complete Time: 13:52 pm1 03/17 13:51 Order name: Cardiac monitoring; Complete Time: 14:12 pm03/17 13:51 Order name: EKG - Nurse/Tech; Complete Time: 15:07 pm1 03/17 13:51 Order name: IV Saline Lock; Complete Time: 14:12 pm03/17 13:51 Order name: Labs collected and sent; Complete Time: 14:12 pm1 03/17 13:51 Order name: O2 Per Protocol; Complete Time: 14:12 pm1 03/17 13:51 Order name: O2 Sat Monitoring; Complete Time: 14:12 pm1 03/17 18:38 Order name: CONS Physician Consult EDMS Administered Medications: 15:10 Drug: Lasix (furosemide) 40 mg Route: IVP; Site: left antecubital; cb5 19:38 Follow up: Urine output 250 ml; Response: No adverse reaction tk1 17:00 Drug: Albuterol 5 mg Route: Inhalation; cb5 Disposition Summary: 03/17/21 17:45 Hospitalization Ordered Hospitalization Status: Inpatient Admission pm1 Provider: Lyssa Peterson pm1 Location: Telemetry/MedSur (Inpatient) pm1 Condition: Stable pm1 Problem: new pm1 Symptoms: have improved pm1 Bed/Room Type: Standard 1 Room Assignment: [facility](03/17/21 20:48) Diagnosis - Acute on chronic combined systolic (congestive) and diastolic (congestive) heart pm1 failure Forms: - Medication Reconciliation Form pm1 - SBAR form pm1 Signatures: Dispatcher [employer] EDMara Chen RN RN cg Brent Bentley NP POULTRY BUYER pm1 Can Curtis RN RN jl7 Macrina Blair RN RN cb5 Lucia Bazan tk1 Corrections: (The following items were deleted from the chart) 20:48 17:45 pm1 cg
[2021-03-17 19:24] LABS: Magnesium 1.8
--- NOTE | 2021-03-17 19:52 | P.HP ---
Certification for Inpatient Patient admitted to: Inpatient With expected LOS: >2 Midnights Patient will require the following post-hospital care: Rehabilitation Practitioner: I am a practitioner with admitting privileges, knowledge of patient current condition, hospital course, and medical plan of care. Services: Services provided to patient in accordance with Admission requirements found in Title 42 Section 412.3 of the Code of Federal Regulations Patient History Date of Service: 03/17/21 Reason for admission: CHF exacerbation History of Present Illness: Mr. De Leon is a 66 yo M with history of ALL in remission, CAD s/p CABG and cardiac stents x4, CHF with EF <20% on 03/17/2021 and pacemaker/defibrillator, atrial fibrillation not on chronic anticoagulation, T2DM, COPD on Home O2, DORY not on CPAP, COVID 19 longhauler manifesting with chronic decreased mobility and endurance since 09/2020, history of PE 2/ COVID, COPD, severe pulmonary HTN, traction bronchiectasis and pulmonary fibrosis, current 1ppd tobacco use disorder who was seen by physician in the [facility] and told to report to the Emergency Department for diuresis. On Sep 09, he was diagnosed with COVID. He was treated outpatient, until October when he presented to the ED with fever and was diagnosed with sepsis and a PE. He was intubated and transferred to [facility]'s ICU. He was on a ventilator for 4 days and was given large doses of steroids. Then he was discharged home on eliquis for 6 weeks. Since then he has had significant shortness of breath, weakness, and decreased muscle mass. He was referred to the [facility]'s postCOVID team in the [facility], and seen today. ECHO revealed EF of <20% as well as bilateral pleural effusions. He was advised to go directly to the ED in [place], but refused, and presents here. Per , for the past week, he has had increasing cough, SOB, CABEZAS, abdominal distension, and lower leg edema. His bumex was recently decreased from BID to once daily due to nocturia interfering with his sleep. He has audible wheezes at bedside, as well as productive cough. His legs are significantly swollen, with draining lower leg blisters. His reports he has been sleeping for up to 16 hours daily. Plt 139 BNP 71598 Troponin 59.3 CXR IMPRESSION: Cardiomegaly, vascular engorgement and bilateral pleural effusions suspicious for mild failure/ volume overload. Patient also has airspace opacification in the mid left lung field. This could also be alveolar edema related to failure/ volume overload. However, left mid lung field pneumonia is possible and needs correlation with clinical and laboratory findings. CT CHEST IMPRESSION: Moderately large bilateral pleural effusions are present with significant atelectasis change in each lower lobe. Interstitial thickening and scattered alveolar opacities are present all believed to be part of a CHF/volume overload process. Allergies paroxetine HCl [From Paxil] Allergy (Intermediate, Verified 01/15/21 09:44) AMS morphine Adverse Reaction (Mild, Verified 01/15/21 09:44) Shortness of breath Home Medications: Aspirin 81 mg PO DAILY 08/16/17 Atorvastatin Calcium [Lipitor] 80 mg PO BEDTIME 08/16/17 Promethazine HCl 12.5 mg PO TID 08/16/17 ALPRAZolam [Alprazolam] 1 tab PO Q4HR PRN 01/15/21 Albuterol Sulfate [Albuterol Sulfate Hfa] 2 puff IN TID PRN 01/15/21 Budesonide/Formoterol Fumarate [Budesonide-Formoterol 160-4.5] 1 dose IN BID 01/15/21 Insulin -Regular Human [Novolin -R*] 01/15/21 Pyridoxine [Vitamin B-6*] 1 tab PO DAILY 01/15/21 Sacubitril/Valsartan [Entresto 24 mg-26 mg Tablet] 1 tab PO BID 01/15/21 - Past Medical/Surgical History Diabetic: No -: ALL -: atrial fibrillation -: CAD -: HLD -: COPD on Home O2, pulmonary hypertension -: DM -: CHF -: history of PE -: COVID 19 longhauler -: heart stents -: wrist surgery -: finger surgery -: CABG -: pacemaker, defibrillator -: endarterectomy Psychosocial/ Personal History: - Family History Father -: Lung disease Brother -: Liver disease - Social History Smoking Status: Current every day smoker Alcohol use: No CD- Drugs: No Caffeine use: Yes Place of Residence: Home Review of Systems 10-point ROS is otherwise unremarkable General: Weakness, Malaise Eyes: Unremarkable ENT: Unremarkable Respiratory: Cough, Shortness of Breath, SOB with Excertion, Sputum, Wheezing, As per HPI Cardiovascular: Edema, As per HPI Gastrointestinal: Unremarkable Genitourinary: Unremarkable Musculoskeletal: Unremarkable Integumentary: Unremarkable Neurological: Weakness Lymphatics: Unremarkable Physical Examination - Physical Exam General: Alert, In no apparent distress, Cooperative, Obese HEENT: Atraumatic, PERRLA, Mucous membr. moist/pink, EOMI, Sclerae nonicteric Neck: Supple, 2+ carotid pulse no bruit, No LAD, Without JVD or thyroid abnormality Respiratory: Diminished, Crackles/rales, Expiratory wheezes Cardiovascular: Normal pulses, Regular rate/rhythm, Normal S1 S2, No gallops, No rubs, No murmurs, Edema Gastrointestinal: Normal bowel sounds, No tenderness, No masses, No rebound, No guarding, Distended Musculoskeletal: No tenderness Integumentary: Skin breakdown Neurological: Normal speech, Normal tone, Sensation intact, Normal affect Lymphatics: No axilla or inguinal lymphadenopathy - Studies Laboratory Data (last 24 hrs) 03/17/21 14:12: PT 13.5 H, INR 1.17 03/17/21 14:12: WBC 8.10, Hgb 15.1, Hct 47.2, Plt Count 139 L 03/17/21 14:12: Sodium 142, Potassium 4.5, BUN 31 H, Creatinine 1.19, Glucose 76, Magnesium 1.8, Total Bilirubin 1.1 H, AST 18, ALT 18, Alkaline Phosphatase 110 Assessment and Plan - Problems (Diagnosis) (1) COVID-19 long hauler manifesting chronic decreased mobility and endurance Current Visit: Yes Status: Acute (2) ALL (acute lymphoid leukemia) in remission Current Visit: Yes Status: Chronic (3) CAD (coronary artery disease) Current Visit: Yes Status: Chronic Qualifiers: Coronary Disease-Associated Artery/Lesion type: bypass graft [place] vs. transplanted heart: [place] heart Associated angina: without angina Qualified Code(s): I25.810 - Atherosclerosis of coronary artery bypass graft(s) without angina pectoris (4) CHF (congestive heart failure) Current Visit: Yes Status: Acute Qualifiers: Heart failure type: unspecified Heart failure chronicity: acute on chronic Qualified Code(s): I50.9 - Heart failure, unspecified (5) T2DM (type 2 diabetes mellitus) Current Visit: Yes Status: Chronic Qualifiers: Diabetes mellitus prison insulin use: with prison use Diabetes mellitus complication status: without complication Qualified Code(s): E11.9 - Type 2 diabetes mellitus without complications; Z79.4 - termite technician (current) use of insulin (6) COPD (chronic obstructive pulmonary disease) Current Visit: Yes Status: Chronic Qualifiers: COPD type: unspecified COPD Qualified Code(s): J44.9 - Chronic obstructive pulmonary disease, unspecified (7) Tobacco use Current Visit: Yes Status: Chronic (8) Pulmonary hypertension Current Visit: Yes Status: Chronic (9) Atrial fibrillation Current Visit: Yes Status: Chronic Qualifiers: Atrial fibrillation type: unspecified Qualified Code(s): I48.91 - Unspecified atrial fibrillation (10) HLD (hyperlipidemia) Current Visit: Yes Status: Chronic - Plan cardiology consulted continue IV lasix, fluid restrict 1500 cc daily, low sodium diet, daily weights tend troponins pulmonary consulted RT consulted continue O2, breathing treatments sputum cultures pending A1c pending, sliding scale insulin PT consulted social work consulted fall risk precautions reconcile and continue home medications DVT ppx Discharge Plan: Home Plan to discharge in: Greater than 2 days - Advance Directives Does patient have a Living Will: Yes Does patient have a Durable POA for Healthcare: No - Code Status/Comfort Care Code Status Assessed: Yes (full code ) Critical Care: No Time Spent Managing Pts Care (In Minutes): 70
[2021-03-17] MEDS ORDERED: IPRATROPIUM BROM 0.5MG/2.5ML NEB PRN (19:53)
[2021-03-17] MEDS ORDERED: ONDANSETRON 4 MG/2 ML VIAL IV PRN (19:53)
[2021-03-17] MEDS ORDERED: ALBUTEROL 2.5 MG/3 ML NEB SOL NEB PRN (19:53)
[2021-03-17] MEDS ORDERED: ACETAMINOPHEN 500 MG TAB PO PRN (19:53)
[2021-03-17 20:20] VITALS: BMI 28.5
[2021-03-17] MEDS ORDERED: INSULIN -REGULAR HUMAN 50 UNIT/0.5 ML ML SQ SCH (21:00)
[2021-03-17 21:57] VITALS: O2SAT 94
[2021-03-18 07:01] LABS: Absolute Lymphocytes (CBC) 2.8 K/uL (0.7-4.9); Hematocrit 45.7 % (39.6-49.0); Lymphocytes % 39.2 % (15.3-44.8); MPV 9.8 fL (7.6-11.3)
[2021-03-18 07:23] LABS: Albumin 2.6 g/dL (3.4-5.0); Bilirubin Total 1.1 mg/dL (0.2-1.0); Phosphorus 3.5 mg/dL (2.5-4.9); Potassium 3.8 mmol/L (3.5-5.1); Protein, Total 6.3 g/dL (6.4-8.2); Thyroid Stimulating Hormone 1.41 uIU/mL (0.360-3.740)
[2021-03-18] MEDS ORDERED: INFLUENZA VACCINE (for 6+ mo) 0.5 ML DOSE IMVAC ONE (08:00)
[2021-03-18] MEDS ORDERED: PNEUMOCOCCAL VACCINE 0.5 ML IMVAC ONE (08:00)
--- NOTE | 2021-03-18 08:31 | P.CNS ---
Date of Consult: 03/18/21 Reason for Consult: COPD CHF Chief Complaint: CHF exacerbation History of Present Illness: Patient is 66 years of age with a history of AML in remission history of severe congestive heart failure multiple medical problems including pulmonary hypertension pulmonary embolism active smoker he has been having shortness of breath lower extremity edema referred to [facility] his condition is stable/denies any fever or chills Allergies paroxetine HCl [From Paxil] Allergy (Intermediate, Verified 01/15/21 09:44) AMS morphine Adverse Reaction (Mild, Verified 01/15/21 09:44) Shortness of breath Home Medications: Aspirin 81 mg PO DAILY 08/16/17 Atorvastatin Calcium [Lipitor] 80 mg PO BEDTIME 08/16/17 Promethazine HCl 25 mg PO TID PRN 08/16/17 ALPRAZolam [Alprazolam] 1 tab PO TID 01/15/21 Albuterol Sulfate [Albuterol Sulfate Hfa] 2 puff IN TID PRN 01/15/21 Budesonide/Formoterol Fumarate [Budesonide-Formoterol 160-4.5] 1 dose IN BID 01/15/21 Pyridoxine [Vitamin B-6*] 1 tab PO DAILY 01/15/21 Sacubitril/Valsartan [Entresto 24 mg-26 mg Tablet] 1 tab PO BID 01/15/21 Bumetanide [Bumex] 1 mg PO BID 03/17/21 Insulin Glargine,Hum.rec.anlog [Touhalie Palma Solostar] 20 unit SQ DAILY 03/17/21 Insulin Lispro [Humalog] See Protocol SQ AC 03/17/21 - Past Medical/Surgical History Diabetic: No -: ALL -: atrial fibrillation -: CAD -: HLD -: COPD on Home O2, pulmonary hypertension -: DM -: CHF -: history of PE -: COVID 19 longhauler -: heart stents -: wrist surgery -: finger surgery -: CABG -: pacemaker, defibrillator -: endarterectomy Psychosocial/ Personal History: - Family History Father Medical History: Lung disease Brother Medical History: Liver disease - Social History Smoking Status: Current every day smoker Alcohol use: No CD- Drugs: No Caffeine use: Yes Place of Residence: Home Review of Systems General: Weakness Respiratory: Shortness of Breath Cardiovascular: Edema Physical Examination Temp Pulse Resp BP Pulse Ox 97.7 F 100 H 18 110/67 95 03/18/21 04:00 03/18/21 04:00 03/18/21 04:00 03/18/21 04:00 03/18/21 04:00 General: Alert, In no apparent distress, Oriented x3 Respiratory: Diminished, Crackles/rales Cardiovascular: Edema (4+ edema with blister) Gastrointestinal: Normal bowel sounds, Soft and benign Laboratory Data (last 24 hrs) 03/17/21 14:12: PT 13.5 H, INR 1.17 03/17/21 14:12: WBC 8.10, Hgb 15.1, Hct 47.2, Plt Count 139 L 03/17/21 14:12: Sodium 142, Potassium 4.5, BUN 31 H, Creatinine 1.19, Glucose 76, Magnesium 1.8, Total Bilirubin 1.1 H, AST 18, ALT 18, Alkaline Phosphatase 110 - Problems (1) CHF (congestive heart failure) Current Visit: Yes Status: Acute Plan: Patient is 66 years of age multiple medical problems including Covid COPD pulmonary hypertension severe congestive heart failure admitted to the hospital he is currently doing fine and he can be discharged home labs reviewed vital signs and oxygenation stable labs reviewed plan to discharge home diuretics as per cardiology overall prognosis is poor Qualifiers: Heart failure type: unspecified Heart failure chronicity: acute on chronic Qualified Code(s): I50.9 - Heart failure, unspecified
[2021-03-18] MEDS ORDERED: FUROSEMIDE 40 MG/4 ML VIAL IV SCH (09:00)
[2021-03-18 11:11] LABS: Anisocytosis 1+; Blood Morphology Comment NOTED (NOT SEEN); Hypochromasia 1+; Platelet Estimate DECR; Platelets, Giant PRESENT; White Blood Cell Scan OK (OK)
--- NOTE | 2021-03-18 11:55 | P.DS ---
Admission Date: 03/17/21 Discharge Date: 03/18/21 Disposition: DC HOME/HOME HEALTH CARE Discharge Condition: FAIR Reason for Admission: CHF exacerbation Consultations: Pulmonary - Problems (1) Acute on chronic systolic heart failure Status: Acute (2) Bilateral pleural effusion Status: Acute (3) Pulmonary hypertension Status: Chronic (4) T2DM (type 2 diabetes mellitus) Status: Chronic Qualifiers: Diabetes mellitus truck terminal manager insulin use: with truck terminal manager use Diabetes mellitus complication status: without complication Qualified Code(s): E11.9 - Type 2 diabetes mellitus without complications; Z79.4 - alf (current) use of insulin Brief History of Present Illness: Mr. 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 On Sep 09, he was diagnosed with COVID. He was treated outpatient, until October when he presented to the ED with fever and was diagnosed with sepsis and a PE. He was intubated and transferred to [facility] ICU. He was on a ventilator for 4 days and was given large doses of steroids. Then he was discharged home on eliquis for 6 weeks. Since then he has had significant shortness of breath, weakness, and decreased muscle mass. He was referred to the [facility]'s postCOVID team in the [facility], and seen today. ECHO revealed EF of <20% as well as bilateral pleural effusions. He was advised to go directly to the ED in [place], but refused, and presents here. Per , for the past week, he has had increasing cough, SOB, CABEZAS, abdominal distension, and lower leg edema. His bumex was recently decreased from BID to once daily due to nocturia interfering with his sleep. Plt 139 BNP 82759 Troponin 59.3 CXR IMPRESSION: Cardiomegaly, vascular engorgement and bilateral pleural effusions suspicious for mild failure/ volume overload. Patient also has airspace opacification in the mid left lung field. This could also be alveolar edema related to failure/ volume overload. However, left midlung field pneumonia is possible and needs correlation with clinical and l aboratory findings. CT CHEST IMPRESSION: Moderately large bilateral pleural effusions are present with significant atelectasis change in each lower lobe. Interstitial thickening and scattered alveolar opacities are present all believed to be part of a CHF/volume overload process. Patient hospitalized for further management. Hospital Course: Patient admitted to the medical floor and started on IV Lasix for diuresis. Troponin was mildly elevated but trended down to normal. Patient requested to go home stating he prefers to be home on oral diuretics rather than being in the hospital to receive IV diuretics twice a day. He stated that would be a waste of time for him. Patient ambulating in the hallway without shortness of breath. Seen and evaluated by pulmonary-Dr. Ureña who confirmed patient told him that he prefers to be home on oral diuretics and than be in the hospital. Patient is discharged according to his request. He is informed to take 2 mg of Bumex twice a day for the first 1 week and then reduce dose to his usual 1 mg twice a day. He is informed to follow-up with his PCP within 1 week. Vital Signs/Physical Exam: Temp Pulse Resp BP Pulse Ox 97.9 F 100 H 20 100/64 97 03/18/21 08:00 03/18/21 08:54 03/18/21 08:00 03/18/21 08:54 03/18/21 08:00 General: Alert, In no apparent distress, Oriented x3 HEENT: Mucous membr. moist/pink Neck: Supple, JVD not distended Respiratory: Diminished (Bilateral), Crackles/rales (Mild bibasilar crackles) Cardiovascular: Regular rate/rhythm, Normal S1 S2, Edema (Bilateral lower extremities) Capillary refill: <2 Seconds Gastrointestinal: Soft and benign, Non-distended, No tenderness Musculoskeletal: No tenderness, Swelling (Bilateral legs) Integumentary: No rashes, No cyanosis Neurological: Normal strength at 5/5 x4 extr, Cranial nerves 3-12 intact Laboratory Data at Discharge: WBC 7.00 K/uL (4.3-10.9) 03/18/21 06:15 Hgb 14.8 g/dL (13.6-17.9) 03/18/21 06:15 Hct 45.7 % (39.6-49.0) 03/18/21 06:15 Plt Count 125 K/uL (152-406) L 03/18/21 06:15 PT 13.5 SECONDS (9.5-12.5) H 03/17/21 14:12 INR 1.17 03/17/21 14:12 Sodium 138 mmol/L (136-145) 03/18/21 06:15 Potassium 3.8 mmol/L (3.5-5.1) 03/18/21 06:15 BUN 32 mg/dL (7-18) H 03/18/21 06:15 Creatinine 1.03 mg/dL (0.55-1.3) 03/18/21 06:15 Glucose 75 mg/dL (74-106) 03/18/21 06:15 Phosphorus 3.5 mg/dL (2.5-4.9) 03/18/21 06:15 Magnesium 1.8 03/17/21 14:12 Total Bilirubin 1.1 mg/dL (0.2-1.0) H 03/18/21 06:15 AST 21 U/L (15-37) 03/18/21 06:15 ALT 15 U/L (12-78) 03/18/21 06:15 Alkaline Phosphatase 101 U/L (45-117) 03/18/21 06:15 Triglycerides 76 mg/dL (<150) 03/18/21 06:15 Cholesterol 120 mg/dL (<200) 03/18/21 06:15 HDL Cholesterol 36 mg/dL (40-60) L 03/18/21 06:15 Cholesterol/HDL Ratio 3.33 03/18/21 06:15 Home Medications: Aspirin 81 mg PO DAILY 08/16/17 Atorvastatin Calcium [Lipitor] 80 mg PO BEDTIME 08/16/17 Promethazine HCl 25 mg PO TID PRN 08/16/17 ALPRAZolam [Alprazolam] 1 tab PO TID 01/15/21 Albuterol Sulfate [Albuterol Sulfate Hfa] 2 puff IN TID PRN 01/15/21 Budesonide/Formoterol Fumarate [Budesonide-Formoterol 160-4.5] 1 dose IN BID 12/09/21 Pyridoxine [Vitamin B-6*] 1 tab PO DAILY 01/15/21 Sacubitril/Valsartan [Entresto 24 mg-26 mg Tablet] 1 tab PO BID 01/15/21 Insulin Glargine,Hum.rec.anlog [Rajesh Dejesus] 20 unit SQ DAILY 03/17/21 Insulin Lispro [Humalog] See Protocol SQ AC 03/17/21 Bumetanide [Bumex*] 1 mg PO BID #70 tab 03/18/21 New Medications: Bumetanide [Bumex*] 1 mg PO BID #70 tab Diet: AHA Activity: Fall precautions Followup: Moi Berry MD [Primary Care Provider] - 1 Week (Call to schedule follow up appointment)
[2021-03-18 12:17] LABS: Magnesium 1.7
[2021-03-18 12:42] VITALS: BP 99/62; TEMP 97.3
--- NOTE | 2021-03-18 12:48 | EKG ---
Test Date: 2021-03-17 Test Time: 14:25:34 [employer] Export Coordinator: JEAN PAUL MEASUREMENT RESULTS: Intervals: Rate: 106 OR: 178 QRSD: 104 QT: 356 QTc: 472 [place]: P: 36 OR: 178 QRS: -34 T: 120 INTERPRETIVE STATEMENTS: Sinus tachycardia Possible Left atrial enlargement Left axis deviation Inferior infarct, age undetermined T wave abnormality, consider lateral ischemia Abnormal ECG Compared to ECG 10/17/2020 17:26:26 T-wave abnormality now present Ventricular premature complex(es) no longer present ST (T wave) deviation no longer present Myocardial infarct finding still present Possible ischemia still present Electronically Signed On 03-18-21 12:46:28 TRANSPORT TANK TECHNICIAN by Shawn Lockhart
== END 2021-03-18 01:00 | disposition home health service (06) | DRG 291 ==
LOC: ER 12:33 → ERHOLD 18:37 → 2ND 21:07
PROVIDERS: ADMIT Internal Medicine; ATTEND Internal Medicine
DX: I11.0 Hypertensive heart disease with heart failure (principal); I50.23 Acute on chronic systolic (congestive) heart failure; C91.01 Acute lymphoblastic leukemia, in remission; R68.89 Other general symptoms and signs; U09.9 Post COVID-19 condition, unspecified; I27.20 Pulmonary hypertension, unspecified; E11.9 Type 2 diabetes mellitus without complications; I25.10 Atherosclerotic heart disease of native coronary artery without angina pectoris; J44.9 Chronic obstructive pulmonary disease, unspecified; G47.33 Obstructive sleep apnea (adult) (pediatric); F17.210 Nicotine dependence, cigarettes, uncomplicated; Z95.1 Presence of aortocoronary bypass graft; Z95.5 Presence of coronary angioplasty implant and graft; Z99.81 Dependence on supplemental oxygen; Z95.810 Presence of automatic (implantable) cardiac defibrillator; Z79.4 Long term (current) use of insulin; Z20.822 Contact with and (suspected) exposure to COVID-19
CPT/HCPCS: 0240U; 36415; 71045; 71250; 80048; 80053; 80061; 80076; 82947; 83036; 83735; 83880; 84100; 84439; 84443; 84484; 85025; 85610; 93005; 94760; 96374; 97116; 97161; 99285; J1940

== ENCOUNTER 2021-05-10 01:47 | Emergency (ER) | payer OTHER ==
--- OUTSIDE RECORDS SUMMARY | 2021-05-10 02:00 | XMS REPORT | Continuity of Care Document ---
:[address] [facility] t Address [address] [place] [address] Care Team Providers Name Role Phone Asked, Pcp Primary Care Physician Unavailable LAMONT FITZGERALD Attending Clinician Unavailable SYSTEM, NOT IN Attending Clinician Unavailable DOMENICO VERA Attending Clinician Unavailable Gilda Bran MD Attending Clinician WILLIAM SANTANA Attending Clinician Unavailable Reji JAMIL Attending Clinician Unavailable MARI Attending Clinician Unavailable Hao ALBERTS Attending Clinician Unavailable Ravindra MORAN Attending Clinician Unavailable DINA LEE Attending Clinician Unavailable Dina Lee MD Attending Clinician , [facility] Attending Clinician Unavailable JEAN-CLAUDE Attending Clinician Unavailable Girish Hickey MD Attending Clinician ROSA Attending Clinician Unavailable Irena HIGGINS Attending Clinician Unavailable REBECA Attending Clinician Unavailable Hao LUTHER Attending Clinician Unavailable Doctor Unassigned, Name Attending Clinician Unavailable CHAD Attending Clinician Unavailable DO SORENSEN Attending Clinician Unavailable TAL Attending Clinician Unavailable Girish Dunn RN Attending Clinician Lamont Fitzgerald MD Attending Clinician Kath GUZMÁN Attending Clinician Tian GUZMÁN Attending Clinician Sin Brown Attending Clinician Unavailable Gilmar PIERCE S Attending Clinician Unavailable TIAN Attending Clinician Unavailable Tian GUZMÁN Attending Clinician WESLEY Attending Clinician Unavailable LAMONT FITZGERALD Admitting Clinician Unavailable CHAD Admitting Clinician Unavailable Payers Payer Name Policy Type Policy Number Effective Date Expiration Date S valdez [facility] POS [id number] 2015 SELECT CHOICE 00:00:00 MEDICARE A B [id number] 2020 00:00:00 [employer] LIFE [id number] 2020 00:00:00 SELECT/SELECT PLUS [id number] [facility] MEDICARE PART A AND [id number] 2020 B 00:00:00 [employer] LIFE [id number] 2020 00:00:00 [facility] [id number] 2018 PPO 00:00:00 [facility] [id number] 2015 PPO 00:00:00 Problems Condition Condition Condition Status Onset Resolution Last Treating Co mments Source Name Details Category Date Date Treatment Clinician Date 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 With multiple sequalea, Will focus eval on pulmonary and cardiac manifesta tions Leg Leg Disease Active [facility] swelling [facility] 00:00: t & Plan: of 00 Formattin Medicin g of this e note might be different from the original. Worse post COVID, multifact orial with biventric ular failure, Pulm HTN Will check LE dopplers for DVT COVID-19 COVID-19 Disease Active Last [facility] r [facility]: t & Plan: [...] Active Last [facility] congestive congestive 00:00: t & Plan: of heart heart 00 Formattin Medicin failure failure g of this e (HCCode) (HCCode) note might be different from the original. 2 d echo orderedre bhavya to Dr Bran for evaluatio n and managemen t Fatigue Fatigue Disease Active [facility] 02-15 [facility] 00:00: t & Plan: of Formattin Medicin g of this e note might be different from the original. Post COVID , multifact orial Cough Cough Disease Active [facility] 02-15 [facility] 00:00: t & Plan: of Formattin Medicin g of this e note might be different from the original. Prior CT report mentions bronchiec tasisCoun seld on smoking cessation Will check new CT and optimize airway managemen t according ly Dizziness Dizziness Disease Active [facility] 02-15 [place] 00:00: of 00 Medicin e Pneumonia Pneumonia Disease Active [facility] [facility] due to due to 02-15 [place] COVID-19 COVID-19 00:00: of virus virus 00 Medicin e Shortness Shortness Disease Active [place] [facility] of breath of breath 02-15 [facility] 00:00: of 00 Medicin e Excessive Excessive Disease Active [facility] daytime [facility] sleepiness sleepiness 00:00: t & Plan: of 00 Formattin Medicin g of this e note might be different from the original. With sig fatigueHa s Hx DORY COVID-19 COVID-19 Disease Active [facility] 02-15 [place] 00:00: of 00 Medicin e Multiple Multiple [facility] sub[facility] subsegment [facility] al al 00:00: t & Plan: of pulmonary pulmonary 00 Formattin M edicin emboli emboli g of this e without without note acute cor acute cor might be pulmonale pulmonale different (HCCode) (HCCode) from the (HCC) (HCC) original. 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) 00:00: Medi harpal in in 00 Center remission remission CAD CAD Disease Active [facility] (coronary (coronary 08-17 Luke [facility] - artery artery 00:00: Medical disease) disease) 00 Center Respirator Respirator Disease Active [facility] - insufficie insufficie Me dical ncy ncy Center S/P CABG x S/P CABG x Disease Active [facility] 2 2 [facility] Cardiogeni Cardiogeni Disease Active [facility] c shock c shock [facility] Lactic Lactic Disease Active [facility] acidosis acidosis [facility] Acute Acute Disease Active [facility] respirator respirator Vania kes - y failure y failure Medi harpal with with Center hypoxia hypoxia Leukemia Leukemia Disease Active Last [facility] in in [facility] remission remission t & Plan: o f (HCCode) (HCCode) Formattin Med icin g of this e note might be different from the original. Follows up at [facility] Allergies, Adverse Reactions, Alerts Allergy Allergy Status Severity Reaction(s) Onset Inactive Treating Comm ents Source Name Type Date Date Clinician Opioid Propensi Active [facility] Analgesi ty to 02-12 [place] cs adverse 00:00: of reaction 00 Medicin [...] Hospita reaction 00 l s to drug MORPHINE DRUG Active Low Palpitations Un gianna INGREDI 08-17 ity of 00:00: [place] 00 Medical Branch Morphine Propensi Active Palpitations Respira to Univers ty to 08-17 ry ity of adverse 00:00: depressio [place] reaction 00 n Medical s Branch PAROXETI Allergy Active [facility] NE HCL 08-17 00:00: 00 MORPHINE Allergy Active Low Palpitations S LEH 08-17 00:00: 00 Morphine Drug Active Palpitations Respirato [facility] [...] Stop Date Quantity Comments Source History SDOH [facility] Alcohol Comment Hospital History [facility] Alcohol Std Drinks of Med icine Exposure to Not sure [facility] e SARS-CoV-2 (event) of Med icine History [facility] Alcohol Binge of Medicine Alcohol intake 2021-03-26 2021-03-26 Lifetime [facility] Col lege 00:00:00 00:00:00 non-drinker of Medicine (finding) History [facility] 2021-02-12 2021-02-12 1 [facility] Alcohol Frequency 00:00:00 00:00:00 of [employer] Cigarettes smoked 2021-02-12 2021-02-12 [facility] current (pack per 00:00:00 00:00:00 of [employer] day) - Reported Cigarette 2021-02-12 2021-02-12 [facility] pack-years 00:00:00 00:00:00 of Medicine Tobacco use and 2021-02-12 2021-02-12 [facility] 00:[facility]:00 00:00:00 non-user of Medicine Sex [birth year] [facility] Co llege 00:00:00 00:00:00 of Medicine Smoking Status Start Date Stop Date Source Heavy tobacco smoker 2021-02-12 00:00:00 [facility] Smokes tobacco daily 2017-12-26 00:00:00 [facility] Medications Ordered Filled Start Stop Current Ordering Indication Dosage Frequency Signature Comments Components Source Medication Medication Date Date Medication? Clinician (SIG) Name Name Zinc 50 MG Yes 50mg Take 50 mg B a[facility] TABS 2-17 by mouth [place] 08:50: daily. of 55 Medicin e atorvastati Yes Take by León hoffman (LIPITOR) 2-17 mouth [place] 80 MG 08:50: daily. of tablet 05 Medicin e promethazin Yes 12.5mg Take 12.5 [facility] e 2-17 mg by [place] (PHENERGAN) 08:50: mouth of 12.5 MG 05 every 6 Medicin tablet hours as e needed for Nausea. Pyridoxine Yes Take by [place] HCl 2-17 mouth. [place] (VITAMIN 08:50: of B-6) 100 MG 05 Medicin TABS e Sacubitril- 2021-0 Yes Take by ylor Valsartan 2-17 mouth. [place] 24-26 MG 08:50: of TABS 05 Medicin e bumetanide 2021-0 Yes 1mg Take 1 mg Ba y[facility] (BUMEX) 2 2-17 by mouth Colleg e MG tablet 08:50: two times of 05 daily. Medicin e alprazolam 0 Yes .5mg Take 0.5 [place] (XANAX) 0.5 2-17 mg by [place] MG tablet 08:50: mouth of 05 nightly as Medicin needed for e Sleep. Aspirin 81 0 Yes 81mg Take 81 mg B aylor MG tablet 2-17 by mouth. Colle ge 08:50: of 05 Medicin e atorvastati 0 Yes Take by dollyor n (LIPITOR) 2-08 mouth [place] 80 MG 10:08: daily. of tablet 38 Medicin e promethazin Yes 12.5mg Take 12.5 [facility] e 2-08 mg by [place] (PHENERGAN) 10:08: mouth of 12.5 MG 38 every 6 Medicin tablet hours as e needed for Nausea. Pyridoxine Yes Take by [place] HCl 2-08 mouth. [place] (VITAMIN 10:08: of B-6) 100 MG 38 Medicin TABS e Sacubitril- 2021-0 Yes Take by ylor Valsartan 2-08 mouth. [place] 24-26 MG 10:08: of TABS 38 Medicin e bumetanide 0 Yes 2mg Take 2 mg [facility] y[facility] (BUMEX) 2 2-08 by mouth Colleg e MG tablet 10:08: daily. of 38 Medicin e alprazolam 0 Yes .5mg Take 0.5 [place] (XANAX) 0.5 2-08 mg by [place] MG tablet 10:08: mouth of 38 nightly as Medicin needed for e Sleep. Aspirin 81 2021-0 Yes 81mg Take 81 mg B ayl[facility] MG tablet 2-08 by mouth. Colle ge 10:08: of 38 Medicin e Budesonide- 2021-0 2- No Inhale by [facility] Formoterol 2-08 02-08 mouth. Colleg e Fumarate 09:58: 00:00 of 160-4.5 53 :00 Medicin MCG/ACT e AERO Aspirin 81 Yes 81mg Take 81 mg B aylor MG tablet 02-[address] [facility] ge 09:15: of 49 Medicin e atorvastati Yes Take by maira n (LIPITOR) 1-06 mouth [place] 80 MG 09:06: daily. of tablet 11 Medicin e Budesonide- Yes Inhale by [facility] Formoterol 1-06 mouth. [place] Fumarate 09:06: of 160-4.5 11 Medicin MCG/ACT e AERO promethazin Yes 12.5mg Take 12.5 [facility] e 1-06 mg by [place] (PHENERGAN) 09:06: mouth of 12.5 MG 11 every 6 Medicin tablet hours as e needed for Nausea. Pyridoxine Yes Take by [place] HCl 1-06 mouth. [place] (VITAMIN 09:06: of B-6) 100 MG 11 Medicin TABS e Sacubitril- Yes Take by maira Valsartan 1-06 mouth. [place] 24-26 MG 09:06: of TABS 11 Medicin e bumetanide Yes 2mg Take 2 mg León ylor (BUMEX) 2 1-06 by mouth [facility] e MG tablet 09:06: daily. of 11 Medicin e alprazolam Yes .5mg Take 0.5 [place] (XANAX) 0.5 1-06 mg by [place] MG tablet 09:06: mouth of 11 nightly as Medicin needed for e Sleep. albuterol 2020-02 Yes [place] [id number] (03-11 [facility]) 00:00: of mcg/act 00 Medicin inhaler e albuterol 2020-02 Yes [place] [id number] ( 03-11 [facility]) 00:00: of mcg/act 00 Medicin inhaler e albuterol 2020-02 Yes [place] [id number] ( 03-11 [facility]) 00:00: of mcg/act 00 Medicin inhaler e ipratropium Yes 2{puff} Q.[id number] Inhale [address] [facility] (ATROVENT 4-24 [id number] puffs by [facility] - HFA) 17 13:25: 3D mouth via Medic al mcg/actuati [address] on inhaler (three) times daily. aspirin 81 Yes 81mg QD Take [address] MG EC 4-24 by mouth [facility] - tablet 13:25: daily. [address] atorvastati Yes 80mg QD Take [address] n (LIPITOR) 4-24 by mouth Luke s - 80 MG 13:25: daily. Medical tablet 44 [place] sacubitril- Yes 1{tbl} Q.5D Take 1 CH [...] mouth Medica l mg chewable 44 daily. [place] tablet ipratropium Yes 2{puff} Q.[id number] Inhale [address] (ATROVENT 4-24 [id number] puffs by [facility] - HFA) 17 13:25: 3D mouth via Medic al mcg/actuati [address] on inhaler (three) times daily. aspirin 81 0 Yes 81mg QD Take [address] MG EC 4-24 by mouth [facility] - tablet 13:25: daily. [address] atorvastati Yes 80mg QD Take [address] n (LIPITOR) 4-24 by mouth Luke s - 80 MG 13:25: daily. Medical tablet 44 [place] sacubitril- Yes 1{tbl} Q.5D Take [address] valsartan 4-24 tablet by [facility] - (ENTRESTO) 13:25: mouth 2 Medi harpal 24-26 mg 44 (two) Center Tab times daily. bumetanide 2021-0 Yes 1mg Q.5D Take [address] (BUMEX) 1 4-24 by mouth 2 Luke s - MG tablet 13:25: (two) Medical 44 times Center daily. calcium Yes 1{tbl} QD Take [address] carbonate 4-24 tablet by [facility] - (TUMS) 500 13:25: mouth Medica l mg chewable 44 daily. Center tablet ipratropium Yes 2{puff} Q.[id number] Inhale [address] (ATROVENT 4-24 [id number] puffs by [facility] - HFA) 17 13:25: [...] 25mg Take [address] [facility] e -30 05-23 by mouth [facility] - (PHENERGAN) 22:33: 00:00 every 8 Me dical 12.5 MG 14 :00 (eight) Center tablet hours as needed for Nausea. glipiZIDE 0 2020- No 5mg Take [address] (GLUCOTROL) -30 05-23 by mouth 2 L ukes - 10 MG 22:33: 00:00 (two) Medical tablet 14 :00 times Center daily before meals . promethazin 2020- No 25mg Take [address] [facility] e 05-30 by mouth [facility] - (PHENERGAN) 22:33: 00:00 every 8 Me dical 12.5 MG 14 :00 (eight) Center tablet hours as needed for Nausea. glipiZIDE 2020- No 5mg Take [address] (GLUCOTROL) 05-30 by mouth 2 L ukes - 10 MG 22:33: 00:00 (two) Medical tablet 14 :00 times Center daily before meals . promethazin 2020- No 25mg Take [address] [facility] [facility] e 05-30 by mouth [facility] - (PHENERGAN) 22:33: 00:00 every 8 Me dical 12.5 MG 14 :00 (eight) Center tablet hours as needed for Nausea. glipiZIDE 2020- No 5mg Take [address] (GLUCOTROL) 05-30 by mouth 2 L ukes - 10 MG 22:33: 00:00 (two) Medical tablet 14 :00 times Center daily before meals . cetirizine 2020- No 10mg QD Take [address] (ZYRTEC) 10 4-14 04-14 by mouth Carlos es - mg Cap 11:19: 00:00 nightly. Medica l 32 :00 Center cetirizine 2020- No 10mg QD Take [address] (ZYRTEC) 10 4-14 04-14 by mouth Carlos es - mg Cap 11:19: 00:00 nightly. Medica l 32 :00 Center cetirizine 2020- No 10mg QD Take [address] (ZYRTEC) 10 4-14 04-14 by mouth Carlos es - mg Cap 11:19: 00:00 nightly. Medica l 32 :00 Center blood sugar 2019-02 Yes Use to [place] [facility] ers diagnostic 1-04 check ity of (ONETOUCH 00:00: blood [place] ULTRA BLUE 00 sugar 3X Medic al TEST STRIP) daily. Branch strip DX:E09.9 Insulin 2019-02 Yes Use to Univers [place], 1-04 inject ity of Disposable, 00:00: insulin 4X [place] (BD INSULIN 00 daily. Medica l PEN NEEDLE DX:E09.9 [facility] UF) 31 gauge x 5/16" Ndle Insulin 2019- Yes [id number] 15U inject 15 Un gianna Glargine 0-28 Units ity of (LANTUS 00:00: under the [place] SOLOSTAR 00 skin every Medic al U-100 morning. Branch INSULIN) E10.65 100 unit/mL (3 mL) injection HUMALOG 2019-02 Yes [id number] 4U inject Unive rs KWIKPEN 0-28 4-10 Units ity of INSULIN 100 00:00: under the [place] unit/mL 00 skin 3 Medical injection (three) Branch times daily before meals. E10.65 ONETOUCH 2019-02 Yes [id number] Use as Univ ers DELICA 0-28 directed ity of LANCETS 30 00:00: E10.65 [place] gauge Misc 00 Medical Branch Insulin 2019-02 Yes 8U Inject Bassam Lispro, 1 0-28 8-18 Units [place] e[place] Unit Dial, 00:00: into the of 100 UNIT/ML 00 skin. Medicin SOPN e Insulin 2019-02 Yes 8U Inject [facility] Lispro, 1 0-28 8-18 Units [place] Unit Dial, 00:00: into the of 100 UNIT/ML 00 skin. Medicin SOPN e Insulin 2019-02 Yes 8U Inject Bassam Lispro, 1 0-28 8-18 Units [place] Unit Dial, 00:00: into the of 100 UNIT/ML 00 skin. Medicin SOPN e insulin 2019-02 Yes 15U Inject 15 [facility] glargine 0-28 Units [facility] - (Lantus 00:00: subcutaneo Medi harpal Solostar 00 usly daily Cente r U-100 with Insulin) breakfast 100 unit/mL . (3 mL) InPn insulin 2019-02 Yes 4U Inject [facility] lispro 0-28 4-10 Units [facility] - (HumaLOG 00:00: subcutaneo Med ical KwikPen 00 usly Center Insulin) Sliding 100 unit/mL scale. InPn insulin 2019-02 Yes 15U Inject 15 [facility] t glargine 0-28 Units [facility] - (Lantus 00:00: subcutaneo Medi harpal Solostar 00 usly daily Cente r U-100 with Insulin) breakfast 100 unit/mL . (3 mL) [facility] insulin 2019-02 Yes 4U Inject [facility] lispro 0-28 4-10 Units [facility] - (HumaLOG 00:00: subcutaneo Med ical KwikPen 00 usly Center Insulin) Sliding 100 unit/mL scale. [facility] insulin 2019-02 Yes 15U Inject 15 [facility] t glargine 0-28 Units [facility] - (Lantus 00:00: subcutaneo Medi harpal Solostar 00 usly daily Cente r U-100 with Insulin) breakfast 100 unit/mL . (3 mL) [facility] insulin 2019-02 Yes 4U Inject [facility] lispro 0-28 4-10 Units [facility] - (HumaLOG 00:00: subcutaneo Med ical KwikPen 00 usly Center Insulin) Sliding 100 unit/mL scale. [facility] budesonide- 2019-02 Yes 2{puff} Q.5D 2 puffs [...] 00:00: times Medic al 160-4.5 00 daily. [place] mcg/actuati on inhaler gabapentin 2018- Yes 300mg Take 300 Un gianna 300 mg 1-18 mg by ity of capsule 14:30: mouth. [address] proMETHazin 2018- Yes 25mg Take 25 mg Univers e 12.5 mg 1-18 by mouth. ity o f tablet 14:30: [address] levoFLOXaci Yes 500mg Take 500 U nivers n 500 mg 1-18 mg by ity of tablet 14:30: mouth. [address] sacubitril- Yes Take by Un gianna valsartan 1-18 mouth. ity of (ENTRESTO) 14:30: [place] [address] aspirin 81 Yes 81mg Take 81 mg U nivers mg EC 1-18 by mouth. ity of tablet 14:30: [address] atorvastati Yes 80mg Take 80 mg Univers n 80 mg 1-18 by mouth. ity of tablet 14:30: [address] Cetirizine Yes 10mg Take 10 mg U nivers (ZYRTEC) 10 1-18 by mouth. ity of mg capsule 14:30: [address] mercaptopur 2017-02 Yes 50mg Take 50 mg Univers ine 50 mg 2-27 by mouth. ity o f tablet 00:00: [address] traMADOL 50 2017-02 Yes 50mg Take 50 mg Univers mg tablet 2-27 by mouth. ity o f 00:00: [address] traMADol 2017-02 Yes 50mg Take [address] (ULTRAM) 50 2-27 by mouth. Carlos es - mg tablet 00:00: [address] traMADol 2017-02 Yes 50mg Take [address] (ULTRAM) 50 2-27 by mouth. Carlos es - mg tablet 00:00: [address] traMADol 2017-02 Yes 50mg Take [address] (ULTRAM) 50 2-27 by mouth. Carlos es - mg tablet 00:00: [address] atorvastati 2017-02 Yes 80mg QD Take 80 [...] 39 l (500 mg) chewable tablet ipratropium Yes 1{puff} Inhale 1 Univers (ATROVENT 9-10 Puff. ity of HFA) 17 00:00: [facility]/actuati 00 Medical on inhaler Branch amiodarone Yes Take 1 bid U nivers 200 mg 23 for 7 days ity of tablet 00:00: then [place] 00 reduced to Medical 1 po daily [...] Center 1 po daily thereafter . amiodarone 2018-0 2020- No Take [address] [facility] [...] WEIGHT 2020-05-28 13:05:00 93 kg Systolic blood 2021-03-26 14:54:00 106 mm[Hg] [facility] Medicine Diastolic blood 2021-03-26 14:54:00 64 mm[Hg] [facility] Medicine Heart rate 2021-03-26 14:54:00 106 /min [facility] Oxygen saturation in 2021-03-26 14:54:00 97 /min [facility] Arterial blood by [facility] Pulse oximetry Respiratory rate 2021-03-26 14:51:00 16 /min [facility] Body height 2021-03-26 14:51:[address] [facility] Body weight 2021-03-26 14:51:[address] [facility] BMI 2021-03-26 14:51:00 28.63 kg/m2 [facility] Systolic blood 2021-03-17 16:06:00 114 mm[Hg] [facility] Medicine Diastolic blood 2021-03-17 16:06:00 73 mm[Hg] [facility] Medicine Heart rate 2021-03-17 16:06:00 71 /min [facility] Body temperature 2021-03-17 16:06:00 36.61 [place] [facility] Body height 2021-03-17 16:06:[address] [facility] Body weight 2021-03-17 16:06:00 [facility]431 [facility] BMI 2021-03-17 16:06:00 28.63 kg/m2 [facility] Systolic blood 2021-02-12 14:53:00 111 mm[Hg] [facility] pressure Medicine Diastolic blood 2021-02-12 14:53:00 74 mm[Hg] [facility] Medicine Heart rate 2021-02-12 14:53:00 58 /min [facility] height 2021-02-12 14:53:00 185.4 cm [facility] Body weight 2021-02-12 14:53:00 92.987 kg [facility] BMI 2021-02-12 14:53:00 27.05 kg/m2 [facility] ollege of [facility] WEIGHT 2020-06-23 08:36:00 94.2 kg HEIGHT 2020-05-29 06:25:00 185.4 cm WEIGHT 2020-05-29 06:25:00 92.851 kg HEIGHT 2020-05-28 13:05:00 185.4 cm WEIGHT 2020-05-28 13:05:00 93 kg HEIGHT 2020-05-21 11:16:00 185.4 cm WEIGHT 2020-05-21 11:16:00 93.895 kg HEIGHT 2020-05-21 11:16:00 185.4 cm WEIGHT 2020-05-21 11:16:00 93.895 kg WEIGHT 2020-01-02 09:41:00 101.4 kg WEIGHT 2019-09-05 09:33:21 99.2 kg Heart rate 2020-05-31 09:16:00 92 /min [facility] Respiratory rate 2020-05-31 09:16:00 18 /min [facility] Oxygen saturation in 2020-05-31 09:16:00 97 /min [facility] Arterial blood by Medical Ce nter Pulse oximetry Systolic blood 2020-05-31 07:00:00 116 mm[Hg] [facility] Diastolic blood 2020-05-31 07:00:00 72 mm[Hg] [facility] S t [facility] Body temperature 2020-05-31 07:00:00 36.33 [place] [facility] Body height 2020-05-30 16:33:00 185.4 cm [facility] Body weight 2020-05-30 16:33:00 92.8 kg [facility] BMI 2020-05-30 16:33:00 26.99 kg/m2 [facility] Procedures Procedure Date / Time Performing Clinician Source Performed ELECTROCARDIOGRAM COMPLETE 2021-03-26 14:56:00 German [facility] VENOUS DOPPLER LEGS 2021-02-24 12:04:[address] [facility] REFERRAL- REQUEST/RESPONSE 2020-10-28 05:01:00 Doctor Unassigned , [facility] [place] [facility] POCT-GLUCOSE METER 2020-05-31 08:18:00 Francis Stockton [facility] POCT-GLUCOSE METER 2020-05-30 21:07:00 Francis Stockton [facility] POCT-GLUCOSE METER 2020-05-30 17:05:00 Justo Fitzgerald [facility] POCT-GLUCOSE METER 2020-05-30 12:30:00 Justo Fitzgerald [facility] POCT-GLUCOSE METER 2020-05-30 08:41:00 Justo Fitzgerald [facility] TSH/FREE T4 IF INDICATED 2020-05-30 08:13:00 Bharat Lilly [facility] RPR 2020-05-30 08:13:00 Bharat Lilly [facility] VITAMIN B12 AND FOLATE 2020-05-30 08:13:00 Bharat Lilly [facility] CBC W/PLT COUNT & AUTO 2020-05-30 05:45:[address] [facility] BASIC METABOLIC PANEL (7) 2020-05-30 05:45:00 Francis Stock[facility] MAGNESIUM 2020-05-30 05:45:00 Francis Stockton [facility] HEMOGLOBIN A1C 2020-05-30 05:45:00 Francis Stockton [facility] LIPID PANEL 2020-05-30 05:45:00 Bharat Lilly [facility] CBC W/PLT COUNT & AUTO 2020-05-30 05:45:[address] [facility] POCT-GLUCOSE METER 2020-05-29 21:23:00 Noa Justo [facility] POCT-GLUCOSE METER 2020-05-29 17:39:00 Noa [facility] GLUCOSE 2020-05-29 15:31:00 [facility] 2020-05-29 15:31:00 [facility] LACTIC ACID, ARTERIAL 2020-05-29 15:31:00 [facility]ABOLIC PANEL (7) 2020-05-29 15:31:00 Yi Luciano [facility] POCT-GLUCOSE METER 2020-05-29 13:44:00 Noa [facility] POCT-GLUCOSE METER 2020-05-29 12:58:00 Noa [facility] POCT-GLUCOSE METER 2020-05-29 11:40:00 Noa [facility] XR CHEST 1 VIEW PORTABLE / 2020-05-29 11:29:00 Yi Luciano [facility] ECG 12-LEAD 2020-05-29 10:01:02 Unknown, Hl7 [facility] ECG 12-LEAD 2020-05-29 10:01:02 Unknown, Hl7 [facility] BLOOD GAS, ARTERIAL 2020-05-29 09:58:[address] [facility] LACTIC ACID, ARTERIAL 2020-05-29 09:56:[address] [facility] BASIC METABOLIC PANEL (7) 2020-05-29 09:56:00 Garrick Ingram [facility] CBC (HEMOGRAM ONLY) 2020-05-29 09:56:00 Juan Jose [facility] MAGNESIUM 2020-05-29 09:56:00 Juan Jose [facility] BLOOD GAS, ARTERIAL 2020-05-29 09:08:16 Oliveros, [facility] SODIUM NA-STAT LAB 2020-05-29 09:08:16 Oliveros, [facility] POTASSIUM-STAT LAB 2020-05-29 09:08:16 Oliveros, [facility] GLUCOSE-STAT LAB 2020-05-29 09:08:16 Oliveros, [facility] HGB/HCT (H&H) - STAT LAB 2020-05-29 09:08:16 Oliveros, [facility] RRL CRITICAL LABS 2020-05-29 09:08:16 Oliveros, [facility] es - (ABG,NA,K,H&H,GLUCOSE) Medical C enter TISSUE EXAM 2020-05-29 08:36:[address] [facility] POTASSIUM-STAT LAB 2020-05-29 08:13:30 Oliveros, [facility] GLUCOSE-STAT LAB 2020-05-29 08:13:30 Oliveros, [facility] HGB/HCT (H&H) - STAT LAB 2020-05-29 08:13:30 Oliveros, [facility] RRL CRITICAL LABS 2020-05-29 08:13:30 [facility] (ABG,NA,K,H&H,GLUCOSE) Medical C enter BLOOD GAS, ARTERIAL 2020-05-29 08:13:30 Oliveros, [facility] CALCIUM, IONIZED 2020-05-29 08:13:30 Oliveros, [facility] SODIUM NA-STAT LAB 2020-05-29 08:13:30 OliverosAlessia [facility] ENDARTERECTOMY,CAROTID 2020-05-29 07:00:00 [facility] TYPE AND SCREEN, AUTOMATED 2020-05-29 06:47:00 [facility] POCT-GLUCOSE METER 2020-05-29 06:26:00 [facility] TYPE AND SCREEN, AUTOMATED 2020-05-21 12:40:00 Debonte Melina [facility] CBC W/PLT COUNT & AUTO 2020-05-21 12:40:00 Debonte [facility] CBC W/PLT COUNT & AUTO 2020-05-21 12:40:00 Debontthomas [facility] BASIC METABOLIC PANEL (7) 2020-05-21 12:40:00 Anton Melina [facility] PROTHROMBIN TIME/INR 2020-05-21 12:40:00 Debonte [facility] ECG 12-LEAD 2020-05-21 12:15:22 Debonte [facility] ECG 12-LEAD 2020-05-21 12:15:22 Unknown, Hl7 Doctor [facility] Plan of Care Planned Activity Planned Date Details Comments Source Future Scheduled 2023-05-31 Lipid panel (procedure) [facility] - Test 00:00:00 [code = 54008628] Medical Ce nter Future Scheduled 2021-06-14 CT CHEST HIGH Expected: [facility] Test 00:00:00 RESOLUTION WO CONTRAST 06/14/2021, of Me dicine [code = 07801-6] Expires: 03/17/2022 Future Scheduled 2021-04-10 Screening for malignant [facility] Test 09:26:51 neoplasm of colon of Medicin e (procedure) [code = 102864473] Future Scheduled 2021-04-10 COVID-19 Vaccine (1) [facility] Test 09:26:51 [code = COVID-19 of Medicine Vaccine (1)] Future Scheduled 2021-04-10 TETANUS SHOT (ADULT) [facility] Test 09:26:51 [code = TETANUS SHOT of Medi cine (ADULT)] Future Scheduled 2021-04-10 BMI FOLLOW UP PLAN [facility] Test 09:26:51 [code = BMI FOLLOW UP of Med icine PLAN] Future Scheduled 2021-04-10 Hepatitis C screening [facility] Test 09:26:51 (procedure) [code = of Medic ine 603526191] Future Scheduled 2021-04-10 Screening for malignant [facility] Test 09:26:51 neoplasm of lung of Medicine (procedure) [code = 558354996] Future Scheduled 2021-04-10 ZOSTER VACCINE (1 of 2) [facility] Test 09:26:51 [code = ZOSTER VACCINE of Me dicine (1 of 2)] Future Scheduled 2021-04-10 MEDICARE AWV (Initial) [facility] Test 09:26:51 [code = MEDICARE AWV of Medi cine (Initial)] Future Scheduled 2021-04-10 Abdominal aortic [facility] Test 09:26:51 aneurysm screening of Medici ne (procedure) [code = 188977507] Future Scheduled 2021-04-10 Pneumococcal 65+ (1 of [facility] Test 09:26:51 1 - PPSV23) [code = of Medic ine Pneumococcal 65+ (1 of 1 - PPSV23)] Future Scheduled 2021-04-10 FLU VACCINE > 6 MONTHS B [facility] Test 09:26:51 [code = FLU VACCINE > 6 of M edicine MONTHS] Future Scheduled 2021-04-10 FALL SCREEN [code = [employer] Test 09:26:51 FALL SCREEN] of Medicine Future Scheduled 2021-03-26 ELECTROCARDIOGRAM [facility] Test 08:55:52 COMPLETE [code = 11338] of M edicine Future Scheduled 2021-03-18 COVID-19 VACCINE (1) [facility] 11:30:30 [code = COVID-19 Hospital VACCINE (1)] Future Scheduled 2021-03-18 COLONOSCOPY SCREENING [facility] Test 11:30:30 [code = COLONOSCOPY Hospital SCREENING] Future Scheduled 2021-03-18 SHINGLES VACCINES (#1) M ethodist Test 11:30:30 [code = SHINGLES Hospital VACCINES (#1)] Future Scheduled 2021-03-18 65+ PNEUMOCOCCAL [facility]i [facility] Test 11:30:30 VACCINE (1 of 1 - Hospital PPSV23) [code = 65+ PNEUMOCOCCAL VACCINE (1 of 1 - PPSV23)] Future Scheduled 2021-03-18 INFLUENZA VACCINE [code [facility] Test 11:30:30 = INFLUENZA VACCINE] Hospita l Future Scheduled 2021-03-17 Screening for malignant [facility] Test 10:38:11 neoplasm of colon of Medicin e (procedure) [code = 685060123] Future Scheduled 2021-03-17 COVID-19 Vaccine (1) [employer] Test 10:38:11 [code = COVID-19 of Medicine Vaccine (1)] Future Scheduled 2021-03-17 TETANUS SHOT (ADULT) [employer] Test 10:38:11 [code = TETANUS SHOT of Medi cine (ADULT)] Future Scheduled 2021-03-17 BMI FOLLOW UP PLAN [facility] Test 10:38:11 [code = BMI FOLLOW UP of Med icine PLAN] Future Scheduled 2021-03-17 Hepatitis C screening [facility] Test 10:38:11 (procedure) [code = of Medic ine 130392858] Future Scheduled 2021-03-17 ZOSTER VACCINE (1 of 2) [facility] Test 10:38:11 [code = ZOSTER VACCINE of Me dicine (1 of 2)] Future Scheduled 2021-03-17 MEDICARE AWV (Initial) [facility] Test 10:38:11 [code = MEDICARE AWV of Medi cine (Initial)] Future Scheduled 2021-03-17 Abdominal aortic [facility] Test 10:38:11 aneurysm screening of Medici ne (procedure) [code = 636414109] Future Scheduled 2021-03-17 Pneumococcal 65+ (1 of [facility] Test 10:38:11 1 - PPSV23) [code = of Medic ine Pneumococcal 65+ (1 of 1 - PPSV23)] Future Scheduled 2021-03-17 FLU VACCINE > 6 MONTHS [facility] Test 10:38:11 [code = FLU VACCINE > 6 of M edicine MONTHS] Future Scheduled 2021-03-17 FALL SCREEN [code = [employer] Test 10:38:11 FALL SCREEN] of Medicine Future Scheduled 2021-02-15 Screening for malignant [facility] Test 18:55:07 neoplasm of colon of Medicin e (procedure) [code = 771642829] Future Scheduled 2021-02-15 Pneumococcal 65+ (1 of [facility] [employer] Test 18:55:07 2 - PPSV23) [code = of Medic ine Pneumococcal 65+ (1 of 2 - PPSV23)] Future Scheduled 2021-02-15 COVID-19 Vaccine (1) [employer] Test 18:55:07 [code = COVID-19 of Medicine Vaccine (1)] Future Scheduled 2021-02-15 TETANUS SHOT (ADULT) [employer] Test 18:55:07 [code = TETANUS SHOT of Medi cine (ADULT)] Future Scheduled 2021-02-15 BMI FOLLOW UP PLAN [employer] Test 18:55:07 [code = BMI FOLLOW UP of Med icine PLAN] Future Scheduled 2021-02-15 Hepatitis C screening [employer] Test 18:55:07 (procedure) [code = of Medic ine 309040629] Future Scheduled 2021-02-15 ZOSTER VACCINE (1 of 2) [employer] Test 18:55:07 [code = ZOSTER VACCINE of Me dicine (1 of 2)] Future Scheduled 2021-02-15 MEDICARE AWV (Initial) [facility] [employer] Test 18:55:07 [code = MEDICARE AWV of Medi cine (Initial)] Future Scheduled 2021-02-15 Abdominal aortic [employer] Test 18:55:07 aneurysm screening of Medici ne (procedure) [code = 822207446] Future Scheduled 2021-02-15 FALL SCREEN [code = [employer] Test 18:55:07 FALL SCREEN] of Medicine Future Scheduled 2021-02-15 FLU VACCINE > 6 MONTHS [employer] Test 18:55:07 [code = FLU VACCINE > 6 of M edicine MONTHS] Future Scheduled 2021-02-12 US VENOUS LEG BILATERAL 1 Occurrences [facility] Test 09:58:15 [code = 48505] starting of Medicine 02/12/2021 until 02/12/2022 Future Scheduled 2021-02-12 COMPLETE PFT WITH 1 Occurrences [employer] Test 09:56:59 BRONCHODILATOR [code = starting of Me dicine 09865] 02/12/2021 until 02/12/2022 Future Scheduled 2021-02-12 SIX MINUTE WALK TEST 1 Occurrences [employer] Test 09:56:59 [code = 75652] starting of Medicine 02/12/2021 until 02/12/2022 Future Scheduled 2021-02-12 CT CHEST HIGH 1 Occurrences [facility] Test 09:56:59 RESOLUTION WO CONTRAST starting of Me dicine [code = 07036-5] 02/12/2021 until 02/12/2022 Diagnostic Test 2021-02-12 ECHO,COMPLETE WITH Expected: [facility] Pending 00:00:00 SALINE [code = 75069-7] 02/12/2021, of M edicine Expires: 02/12/2022 Future Scheduled [address] [facility] Test 00:00:00 WELLNESS (YEAR 2 or Medical Center FIRST YEAR if no IPPE) [code = MEDICARE ANNUAL WELLNESS (YEAR 2 or FIRST YEAR if no IPPE)] Future Scheduled [address] [...] RISK Medical C enter SCREENING] Future Scheduled 2021-02-[address] [facility] - Test 00:00:00 (12+) [code = Medical Center DEPRESSION SCREENING (12+)] Future Scheduled 2021-02-07 FALLS RISK SCREENING [facility] - Test 00:00:00 [code = FALLS RISK Medical C enter SCREENING] Future Scheduled 2020-10-[address] [facility] - Test 00:00:00 (Season Ended) [code = Medic pa Center INFLUENZA VACCINE (Season Ended)] Future Scheduled 2020-10-08 INFLUENZA VACCINE (#1[facility] 00:00:00 [code = INFLUENZA Medical Ce nter VACCINE (#1)] Future Scheduled 2020-10-08 INFLUENZA VACCINE (#1) [facility] 00:00:00 [code = INFLUENZA Medical Ce nter VACCINE (#1)] Future Scheduled 2020-08-[address] Test 00:00:00 measurement (procedure) [facility] [code = 89747128] Future Scheduled 2020-08-[address] [facility] Test 00:00:00 measurement (procedure) [facility] [code = 95690525] Future Scheduled 2020-08-[address] [facility] Test 00:00:00 measurement (procedure) [facility] [code = 67469474] Future Scheduled 2020-02-09 PNEUMOCOCCAL 65+ YRS ([address] [facility] - Test 00:00:00 of 1 - EQYI88_Kgnhxdg Medica l Center PCV13) [code = PNEUMOCOCCAL 65+ YRS (1 of 1 - [id number]_Nwrxhex PCV13)] Future Scheduled 2020-02-[address] [facility] - Test 00:00:00 aneurysm screening Medical C enter (procedure) [code = 479301425] Future Scheduled 2020-02-09 PNEUMOCOCCAL 65+ YRS ([address] [facility] - Test 00:00:00 of 1 - MNSE73_Wniortm Medica l Center PCV13) [code = PNEUMOCOCCAL 65+ YRS (1 of 1 - JAIL91_Fdoarfq PCV13)] Future Scheduled 2020-02-[address] [facility] - Test 00:00:00 aneurysm screening Medical C enter (procedure) [code = 019283151] Future Scheduled 2020-02-09 PNEUMOCOCCAL 65+ YRS ([address] [facility] - Test 00:00:00 of 1 - NGJP21_Uwqsoog [facility] PCV13) [code = PNEUMOCOCCAL 65+ YRS (1 of 1 - PPGD39_Llgubiw PCV13)] Future Scheduled 2020 Medicare IPPE (WELCOME [facility] 00:00:00 TO MEDICARE) [code = Medical Center Medicare IPPE (WELCOME TO MEDICARE)] Future Scheduled 2005 SHINGLES VACCINES ([address] [facility] - Test 00:00:00 2) [code = SHINGLES Medical Center VACCINES (1 of 2)] Future Scheduled 2005 Screening for malignant [facility] - Test 00:00:00 neoplasm of lung Medical [place] ter (procedure) [code = 241676575] Future Scheduled 2005 SHINGLES VACCINES ([address] [facility] - Test 00:00:00 2) [code = SHINGLES Medical Center VACCINES (1 of 2)] Future Scheduled 2005 Screening for malignant [facility] - Test 00:00:00 neoplasm of lung Medical [place] [facility] (procedure) [code = 244689533] Future Scheduled 2005 SHINGLES VACCINES ([address] [facility] - Test 00:00:00 2) [code = SHINGLES Medical Center VACCINES (1 of 2)] Future Scheduled [...] (1)] Future Scheduled 1965 DIABETIC EYE EXAM [code [facility] - Test 00:00:00 = DIABETIC EYE EXAM] Medical Center Future Scheduled [address] Test 00:00:00 examination Medical Center (regime/therapy) [code = 587429877] Future Scheduled 1965 Urine screening for [facility] - Test 00:00:00 protein (procedure) Medical Center [code = 393165663] Future Scheduled 1965 DIABETIC EYE EXAM [code [facility] - Test 00:00:00 = DIABETIC EYE EXAM] Medical Center Future Scheduled [address] [facility] Test 00:00:00 examination Medical Center (regime/therapy) [code = 666696934] Future Scheduled 1965 Urine screening for [facility] Test 00:00:00 protein (procedure) Medical Center [code = 635300256] Future Scheduled 1965 DIABETIC EYE EXAM [code [facility] - Test 00:00:00 = DIABETIC EYE EXAM] Medical Center Future Scheduled [address] [facility] Test 00:00:00 examination Medical Center (regime/therapy) [code = 765063064] Future Scheduled 1965 Urine screening for [facility] - Test 00:00:00 protein (procedure) Medical Center [code = 861976461] Future Scheduled 1955 Screening for malignant [facility] - Test 00:00:00 neoplasm of colon Medical Ce nter (procedure) [code = 026553882] Future Scheduled 1955 Screening for malignant [facility] - Test 00:00:00 neoplasm of colon Medical Ce nter (procedure) [code = 626652049] Future Scheduled 1955 Screening for malignant [facility] - Test 00:00:00 neoplasm of colon Medical Ce nter (procedure) [code = 865075887] Encounters Start End Encounter Admission Attending Care Care Encounter Source Date/Time Date/Time Type Type Clinicians Facility Department ID 2021-04-16 Outpatient [facility] [id number] 14:41[facility]03 [id number] 2021-03-04 Outpatient [facility] [id number] 14:28:11 [id number] [facility] 2021-03-04 Outpatient [facility] [id number] [facility] 14:22:49 [id number] [facility] Clinics 2020-11-15 Inpatient MICHAEL FITZGERALD Surgery [id number] [facility] 13:49:41 JUSTO 2020-10-24 Outpatient SYSTEM, GUILHERME VANEGAS [id number] 13:50:10 PROVIDER Raul hoffman 2020-07-04 Outpatient SYSTEM, GUILHERME VANEGAS [id number] 11:35:20 PROVIDER Raul hoffman 2021-05-21 2021-05-21 Outpatient CAITLIN VERA [facility] [id number] SLE 00:00:00 00:00:00 JOSE MANUEL 2021-03-26 2021-03-26 Office German Bran [facility] 1.2.840.114 [id number] [facility] 09:00:00 11:12:40 Visit P. AMBULATOR 350.1.13.21 College Y 0.2.7.2.686 of [id number] Medi renzo 370 e 2021-03-17 2021-03-17 Office MAX [facility] 1.2.840.114 [id number] [facility] 09:57:55 13:25:24 Visit DIPABEN AMBULATOR 350.1.13.21 College Y 0.2.7.2.686 of [id number] Medi renzo 315 e 2021-03-17 2021-03-17 Outpatient [facility] [id number] [facility] 08:51:36 10:58:00 Belkis guzman of Medicin e 2021-02-26 2021-02-26 Outpatient EL LOULOU, MDA MDA [id number] 10:34:24 23:59:00 DEMETRIS hoffman 2021-02-26 2021-02-26 Outpatient EL MARI, GUILHERME MDA [id number] 13:18:39 14:46:25 JESSY hoffman 2021-02-26 2021-02-26 Outpatient EL LOULOU, MDA MDA [id number] 10:33:31 10:33:31 DEMETRIS hoffman 2021-02-26 2021-02-26 Outpatient EL ARISTEO, GUILHERME MDA [id number] 09:30:00 10:32:00 ADAM Raul o n 2021-02-26 2021-02-26 Outpatient CAITLIN MORAN [facility] [id number] 10:03:42 10:03:42 SILVANA Carter o n 2021-02-24 2021-02-24 Outpatient MICHAEL CHRISTINA [facility] [id number] [facility] 11:01:01 23:59:00 FIDSTANISLAW 2021-02-24 2021-02-24 [facility] Addie Lee [facility] [id number] 11:00:00 23:59:00 [facility] 2021-02-19 2021-02-19 Outpatient CONTRERAS BERMEO [facility] [id number] [facility] 12:24:04 15:26:11 Colleg e of Medicin e 2021-02-19 2021-02-19 Outpatient CONTRERAS BERMEO [facility] [id number] [facility] 12:23:46 15:24:53 Colleg e of Medicin e 2021-02-17 2021-02-17 Outpatient [facility] [id number] [facility] 11:37:41 11:37:41 Colleg e of Medicin e 2021-02-17 2021-02-17 Outside Ruperto [facility] [id number] [facility] [address] 00:00:00 00:00:00 Orders Alistair Stout [facility] 2021-02-13 2021-02-13 Outside Rosa [facility] [id number] [facility] [address] 00:00:00 00:00:00 Orders Addie Smith [facility] 2021-02-12 2021-02-12 Office KARISSAYUNIOR [facility] 1.2.840.114 [id number] [facility] 08:41:10 13:44:54 Visit ADDIE AMBULATOR 350.1.13.21 College Y 0.2.7.2.686 [id number] Medi renzo 315 e 2021-02-06 2021-02-06 Outpatient Samanta HIGGINS [facility] [id number] Univers 09:00:00 09:00:00 PRASANNA [id number] ity [facility] 2020-12-18 2020-12-18 Outpatient Samanta JOSE [facility] [id number] Univers 10:00:00 10:00:00 AKIKO [id number] yojana lazaro [facility] 2020-12-18 2020-12-18 Outpatient Samanta JOSE [facility] [id number] Univers 10:00:00 10:00:00 YEVGENIYKS yojana [facility] 2020-12-01 2020-12-01 Outpatient EL LUTHERLEEANNE ANTHONY MDA MDA [id number] 10:32:56 14:29:07 Raul o n 2020-11-24 2020-11-24 Outpatient EL MDA MDA [id number] 09:08:01 23:59:00 Raul o n 2020-11-24 2020-11-24 Outpatient EL MDA MDA [id number] 11:28:59 11:28:59 Raul o n 2020-11-24 2020-11-24 Outpatient EL GUILHERME MORAN MDA [id number] 09:59:02 11:13:01 MERGED WITH [facility] Raul o n 2020-11-14 2020-11-14 Outpatient EL LEEANNE LUTHER MDA MDA [id number] 13:06:13 13:06:13 Raul o n 2020-11-14 2020-11-14 Outpatient EL MDA MDA [id number] 10:35:53 11:41:36 Raul o n 2020-11-08 2020-11-08 Outpatient EL MDA MDA [id number] 02:03:23 02:03:23 Raul o n 2020-10-28 2020-10-28 Orders Doctor ROSS 1.2.840.114 [id number] 00:00:00 00:00:00 Only Unassigned, REMI 350.1.13.10 ity of [place] [facility] 4.2.7.2.686 Lencho as [id number] [address] 2020-10-18 2020-10-23 Inpatient UR LUISA, MDA Leukemia [id number] 02:47:00 20:42:00 MERGED WITH [facility] Raul o n 2020-10-22 2020-10-22 Inpatient EL MDA MDA [id number] MD 13:33:03 14:25:24 Raul o n 2020-10-22 2020-10-22 Inpatient EL MDA MDA [id number] MD 12:32:54 14:25:20 Raul o n 2020-10-20 2020-10-20 Inpatient JAILENE HU MDA MDA [id number] 09:52:51 10:12:28 Raul o n 2020-10-20 2020-10-20 Inpatient JAILENE HU MDA MDA [id number] MD 09:16:34 10:12:06 Raul o n 2020-10-19 2020-10-19 Inpatient JAILENE HU MDA MDA [id number] 22:09:29 22:20:36 Raul o [place] 2020-10-19 2020-10-19 Inpatient JAILENE HU MDA MDA [id number] 19:48:36 20:54:53 Raul o [place] 2020-06-23 2020-06-23 Outpatient EL EDU, MDA MDA [id number] 13:20:00 23:59:00 JUAN hoffman 2020-06-23 2020-06-23 Outpatient CAITLIN PARADA, MDA MDA [id number] 09:30:00 13:19:00 NASEEM hoffman 2020-06-23 2020-06-23 Outpatient CAITLIN MORAN, MDA MDA [id number] 08:33:20 10:11:09 SILVANA hoffman 2020-06-23 2020-06-23 Outpatient CAITLIN PARADA, MDA MDA [id number] 06:51:35 09:29:00 NASEEM hoffman 2020-06-11 2020-06-11 Outpatient [facility] SLE [id number] SLE 00:00:00 00:00:00 JUSTO 2020-06-03 2020-06-03 [place] Jordyn Dunn [facility] [id number] 00:[facility]00 00:00:00 [facility] 2020-05-29 2020-05-31 [facility] Justo Fitzgerald [facility] [id number] 06:10:00 13:25:00 Encounter Francis Stockton [facility] 2020-05-29 2020-05-29 Anesthesia Nomi Overton [facility] [id number] 07:20:00 10:04:00 Event Venancio Burton [facility] 2020-05-29 2020-05-29 Surgery Noa, [facility] [id number] 07:30:00 09:45:00 [facility] 2020-05-28 2020-05-28 [facility] [id number] 11:35:00 23:59:00 Encounter [facility] 2020-05-28 2020-05-28 Outpatient CAITLIN RODRIGUEZ [facility] [id number] [facility] 00:00:00 00:00:00 2020-05-28 2020-05-28 Travel [facility] [id number] [facility] 00:[facility]:00 00:00:00 [facility] 2020-05-28 2020-05-28 Abstract Gilmar [facility] [id number] 00:00:00 00:00:00 Margie Dickey [facility] 2020-05-21 2020-05-21 Office CAITLIN Fitzgerald [facility] [id number] 11:09:30 11:24:30 Visit [facility] 2020-05-21 2020-05-21 Outpatient MICHAEL ARZOLA [facility] [id number] SLE 00:00:00 00:00:00 JUSTO 2020-05-21 2020-05-21 Orders [facility] [id number] 00:00:00 00:00:00 Only [facility] 2020-05-21 2020-05-21 Travel [facility] [id number] [facility] 00:00:00 00:00:00 [facility] 2020-04-15 2020-04-15 Outpatient Samanta OVERTON [facility] [id number] Univers 14:00:00 14:00:00 MARI [id number] [facility] 2020-04-15 2020-04-15 Outpatient R TIAN [facility] [id number] Univers 14:00:00 14:00:00 [facility] 2020-01-02 2020-01-02 Outpatient CAITLIN MORAN MDA MDA [id number] 07:30:00 23:59:00 NAVAL Raul o n 2020-01-02 2020-01-02 Outpatient CAITLIN MORAN MDA MDA [id number] 09:20:44 10:25:29 NAVBELINDA Raul o n 2019-12-12 2019-12-12 [facility] [id number] 00:00:00 00:00:00 Mari [place] 350.1.13.10 [place] 4.2.7.2.686 Professio [id number] nal 220 [facility] 2019-12-05 2019-12-05 Office [facility] 1.2.840.114 [id number] 14:07:04 15:07:40 Visit Mari [place] 350.1.13.10 [place] 4.2.7.2.686 Professio [id number] nal 220 [facility] 2019-12-05 2019-12-05 Outpatient R TIAN [facility] [id number] Univers 14:00:00 14:00:00 MARI [id number] [facility] 2019-12-05 2019-12-05 Outpatient R TIAN [facility] [id number] [facility] 14:00:00 14:00[facility] 2019-12-05 Orders Doctor VANDANA [id number] 00:00:00 00:00:00 Only Unassigned, REMI [id number] [facility] [id number] [id number] 2019-10-01 2019-10-01 Outpatient R [facility] [id number] -[id number] Univers 10:40:00 10:40:00 [id number] [facility] 2019-10-01 2019-10-01 Outpatient R WESLEY [facility] [id number] Univers 10:40:00 10:40:00 NICKOLAS [facility] 2019-09-25 2019-09-25 Outpatient Samanta OVERTON [facility] [id number] Univers 11:30:00 11:30:00 MARI [id number] [facility] 2019-09-25 2019-09-25 Outpatient Samanta OVERTON [facility] [id number] Univers 11:30:00 11:30:00 MARI [facility] 2019-09-05 2019-09-05 Outpatient CAITLIN PARADA GUILHERME VANEGAS [id number] 10:00:00 23:59:00 NASEEM hoffman 2019-09-05 2019-09-05 Outpatient CAITLIN MORAN GUILHERME VANEGAS [id number] 539 09:04:44 10:45:55 SILVANA hoffman 2019-09-05 2019-09-05 Outpatient CAITLIN PARADA GUILHEMRE VANEGAS [id number] 537 07:35:44 09:59:00 NASEEM hoffman 2019-07-10 2019-07-10 Outpatient Samanta OVERTON [facility] [id number] Univers 09:00:00 09:00:00 MARI [facility] Results Test Description Test Time Test Comments Results Result [facility] e Comments PV, VENOUS DOPPLER 2021-02-24 Reason for LEGS, BILATERAL 13:10:00 exam:->Post-COV ID-19 [facility] 1955 Sex: M *FINAL REPORT TECHNIQUE: Grayscale, color Doppler, and spectral Doppler ultrasound of the bilateral lower extremity veins. 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 COMPARISON: None. FINDINGS:The bilateral common femoral, [...] bilateral lower extremity veins. Signed: Talia Ramos Verified Date/Time: 02/24/2021 13:10:09 Tissue Exam 2020-06-03 17:13:00 Test Item Value Reference Range Interpretation Comme nts Case Report (test code = 104) Surgical Pathology Report Case: [id number] Authorizing Provider: Justo Fitzgerald, Collected: 05/29/2020 08:36 AM Ordering Location: [facility] Received: 05/29/2020 10:20 AM PERIOPERATIVE SERVICES Pathologist: Herb Ramsey MD Specimen: Plaque, Right carotid artery plaque DIAGNOSIS (test code = 3220) d9fywUIbZMIdt7znEAPwiFPzUpAdHlCoXwJiOt pc dWMxIHtccnRmMVxlcGljOTIwMlxhbnNpXHNwbHRw G5OwuyxxRNleTQ8iCL4msGhpvGBdmWPjVBRvBlNx z2kcn046xZLbb8mxSNXCpoabyPm1hGpqM17lx2L9 OlwfY59ntYGaOQjxuMUzsyhnncWyBVLPZLJBJDkx OPZHXAPDVVDFLMnQVNHJJmYKZwQIWdYXYW8XSKgu eIAyIHMKKKVEWffCULIMLSIKB5ZOSEIXU1OJJkZL KDINDADlvMKkZRwGHZaFYUhdNmnEGafRFRWUTt4O EjONRPUhur47CDP9DcTbi6K0BSZ0OBZaEFXrc5iz VBGquQCiQtVyTvXzNhHzLiuubEQgHEPfJnUqu4dl a478rHJhw9xmWJOcTcO8dSAcVCSgeYZuT280MOPx GTlbm7svw7RkYFFptGLli2C1NEMLgrvqaOo7lYvt N53zz8R4HmmtS2njUHTmKGYgH2DkTJ9oZEJuHyp4 CKB8LVO1QLUeUWTyI7PpET0hINLeyRCkDUy1i6eq yHqgQSYvSYH9d6tdCDvcfdLgWO3yjr0lvAi4a9xy riLeQBYhYOShqXFBWRXzI2NpyOgtUr9flHv8hTep PpdsICP3Oji2VI7csf22gld8sFmhYMHczlpzFpZ9 GMpaHXYtzbmgXPs1WZocMZYreXA1GIVhaRSnV0Ut DOEoFO7fatl6DAZ2YNwcWXSmJeK8NNNgqGGeEIJc cDhrDWypr946GQH5NhJkZO2tF6Oua2X8rO4tjXLg QMLlrEUjDuGwMWFrof7ylZVoMLnxa3VdLRX5kxR0 uDKofCVdXIXjOiD1BWldON7rht74YVPlPJB0cu0t iWSwdTccnkOzlTGoZBpfT9XfGMCga030OFXqS7Hz WLLra4M1rvSuFdCdHMLnjXX3btG8RXGmNH5kyelx c4qoAQvjMVlbPXWhasK3blC8LMRwmNVaD3KapD2y FHJgDC6lpfddz4gvPMA9ATwbATVvUQI0WsMpGKJs d4Yuvtn6LcKak2XstUXeUAsnF63ef622KUYukdOg H0mjwAQrklvlvZXsqjurVOdatwI4VTWlTBvnjgbk ZQHaJHevL2neKgDoKUUmyUmdIXkil4GrFIUtBCDi AdMduJQhYLGcNtf5MZRlaZShOYQlDfSgE9zklqqs FuOQTFEwd2ikG7wooZVQwLTxQ8SzXLirddDwDAds FMycZJXxUOB2NL08MoanHNTtke76 CPT Code(s) (test code = 3357) q4gxhOCqGORztWT8LuZcRCQnt3wmw1OcgQVy cGFy UQuddVBzedXhqr02aRK8gA62AT8oSJUyJkE9SDHj pyI9Cne9ULCfYULgcKRxL096o1ide3hhfgOndEI3 nOgxXCYfMTUtTMtpALWuYkPmSOgfRUK2AQc3KwFp XHBhcn0= CLINICAL HISTORY (test code = 7826) r0yhrAPmBCEsdCO0KxPsKCFif5ugx3C sdHBncGFy FQjsdQPtroLveh37eWP2iQ74XG7yVGCjQfM2CEIr grV7Kch1OILfQJFjnYBbJ460a3kbf8dyruJjuXG5 nOdnRNMkCPSsFWnsRHHrVaJmJ8Klzb4soIIbc0Qc ewkliAYfO9Yqe5UjNWOcskAmxbniJXZwoe5= SPECIMEN SOURCE (test code = 3377) b9fwbWXpDBXjaIK6MfGiERRvn3grn5Sb dHBncGFy YUdmvRBzkzDusw26fVZ4nD46IS1jWLCvOkA0BKWx xwP9Sda2CWXkEFUyqFAxQ082p6gha0currGxqIF4 fVxwYXJkXHBsYWluXGZzMjAgUGxhcXVlXHBhcn0= GROSS DESCRIPTION (test code = 3366) z2pgtCWeJNKzaJVhRtPdYGPoFMJhu7 lcZGVmbGFu [file] YXIgUGlsYXIgQXJndWVsbGVzLCBQQSwgSFQgKEFT P2IoOVFiqr5= MICROSCOPIC DESCRIPTION (test code = s0mevTNsSJPpeFJ8OjXiVHIlc2jfx3 BsdHBncGFy 3371) VMlifZXhmwXjhf40fYW1yE80EW7xVZNmSuR5IXDs tpS1Nmx4ODCxXABbpOZlN913t0irv9unuoKgbRW8 kJpfMMSqOKRkGLunJGBnGuOzMTSzKz3jeMJeVTZd cn0= [facility] [id number] 17:13:00 Test Item Value Reference Range Interpretation Comments Case Report (test code Surgical Pathology = 104) Report Case: [id number] Authorizing Provider: Justo Fitzgerald, Collected: 05/29/2020 08:36 AM Ordering [facility]: [facility] Received: 05/29/2020 10:20 AM PERIOPERATIVE SERVICES Pathologist: Herb Ramsey MD Specimen: Plaque, Right carotid artery plaque DIAGNOSIS (test code = y5slkQGsNTVvi0irFKJrbZO 3220) uZzEwMzNcZnRuYmpcdWMxIH tccnRmMVxlcGljOTIwMlxhb aDaSBOidQNsR3NvjyboDEnh VM2bKM1ihErscDZwuQAeACF vOzDgi9zbs095gRAbr4ozFY MBcityoJz0fUxyM80wb0F8B twrC58mnYZaWJiomBLnemna czIwIEFSVEVSWSwgTEVGVCB DQVJPVElELCBFTkRBUlRFUk EBKS2TWNxbfMNtOKGDSCTJN btTJEHSZHPJG1HANXJOR2IX QyBQTEFRVUVccGFyIExVTUl GKTmvQvhFQasDFVLLSp3CLk OCYIRtxu13VOP0QfJpu3Y5A OS8LGHqBCZhf2leUSWgdSDs ZzEwMzNcZnRuYmpcdWMxXGR qNtRwv2vwp892jIOzn9svTA TqRtH5kYTiWRIolWRkC942Y OVxAMdhm0upr6KhCHFegJCs l2I4YHERmcrohNl2iLfaI25 am7C5OmviE4saLOCyWLDdB0 MmVI3kWJLsLxa0CHH4TVF5V HGmANKxL6EeSC7mBZEetOBa AWo9r9syiCtgOLOaVRM6q5n tFJqapoBsTB4ufh7zhDg9w5 xjczEgRGVmYXVsdCBQYXJhZ 6XotUalMh9taUn0sHgqXbhj HQY8Nyp0ES3tbu65kod8nWf sYJEvuhgaBsT3BIoeTJFqlx ygIBy4KRxjCUTijYP2SZVbv DMlG5TqOPCeKW2dctj1TJL8 KLqsFXTfWaI5AQBomCEkJDY wmOieVYylh514PTL7OlMvQG 0oI2Kva5B8qO7wrFPaZOCcg VApFeKkFKHmlc4jjUPkNRyb p5DaIBG5igI3xEOjiNKaPOS hTrW8JJboYP5wfu30WIUpIF C6ce3syOXgcPipoyWxbXCjP TpoI8VxJWBzl083MGHnJ9Yq AJObb3O5tuSeImOhNXSfeFP 4lfP1HYDqYP5ryiqjt3hsZZ vlZItmEWYebxA9cbS1JOMzy VIpN6MedB0xXCMmIA8etvds t1psWDG8RKjdOSAxCEZ4EjX xLLVxi3Nynxl7NgCvw2NbjO JiWSawA15gf245GLEkcwTwW 1xwbGFpblxwbGFpblxmMFxm ijB4FIPlDVrjjirpYIYmXTf gW4gqLgEzHLYsuCddULxiz9 NoXGYxXGZzMjJcdGFiXHRhY zw9ZVEtxKTaYWBpAsIfQ0vh blqfTdJRARSfs7fiJ9ejaBC WqPCmS5FfPAnvlmVjTGamEI lfTODpNOU8DI47PsfkANYdw n19 CPT Code(s) (test code q9rloISpOKNnqAK2IoEiQOK = 3357) rl8xia4WpbDCpoSRaMNkjyM TqxcCzdw00eWN4oK02XN2oO QHoGhD3BKQjhcL6Cqz5EJGd URCvjASbH060u8efh0cfvjZ jwKR8iIxeQQTjXDIaYHcwCB NvKwJzOJvfXPY3BNw6KxClM HBhcn0= CLINICAL HISTORY (test t3epqPLyYZEymFE1VyFnUSM code = 3356) xt5ozq4HejQJpbASwFGbeiQ JblfElfw05hWR3hE00VJ9gX BBqIbI4RTXklcO3Vvd3BSZq YZKloQHdB538i4zwy1pdhcZ ixMZ5bNuqHGMoAGSrGAljDR SqGzFrG0Ocwi7kcDNku7Csp wbxuJUjW6Zcx8MyTALigbOw cnkgXHBhcn0= SPECIMEN SOURCE (test m2oqxKNkUFOdwFC1LcGpVUX code = 3377) ii6rye5GdoLCepGIoLItymT MbsaIyhs67qCJ9hP18CF4sO DFlCpH2HXPqcpH7Ddr5NTBg SQMioLZnS051g5xtw3finsY rsJD1iRokDJIbOUNrGRojSW ZzMjAgUGxhcXVlXHBhcn0= GROSS DESCRIPTION c8hxlCZbYPKkqELcScCuKTB (test code = 3366) hXRXwn6yuVECltNSvHgRgEg NcZnRuYmpcdWMxXGRlZmYwe 2bmd313oIHdw5hyEKKiAmD8 xYKwQCAvyNPrH393b7wne3g tdjQgwBR4EBWeEVN8AMvuey OoueL0MFyypAQoVxZ1YGrvk zPdWSukorAalpLoUxs6UHOq F947BNU6fNjba4nzDCK0IMN aOQJnXaTkOl8zbIIwM236RN RtKGSHEORdsMp2ROSabvNeg fOftOZQz604F382u2iyGCAq oxZvnPzYdbufk4jwC132QYZ hcGVydzEyMjQwXHBhcGVyaD L6ZZAgNA7hbvpuAwQdNQ1md mgrQlUqHR7rgfg5WfNkXO7r cmdiNzIwXGhlYWRlcnkwXGZ ds3HczzsnBL9nW4Yng9B9vP 9maXRcZGVmdGFiNzIwXGZvc l7jkPNmTFych2XxBHL4fyW7 sKEaoQYjWVRkBS88Bjgwd3P tUyvzUAR4MIRjlcUos1Hst5 ojEdIjbaHoJ4qcK9UuBJEzN CJlCHNoOlWzbbVqh7Wnb2Xy uFPfoVp8c4pwMNFzDHOxyBy lc7krBXE8LFYlQ5J5iRPyf0 weXKteJADwoYQ4nlrkFUkdU ULivkZ0hnduIIvwMIBrzOL2 pezuHFewNWVfUtL1zormVPp wHGHnWXD8FZyht069WWT7FZ xzYmtwYWdlXHBnbmNvbnRcc GduZGVjXHBsYWluXHBsYWlu XGYwXGZzMjRccWxccGxhaW5 yYlYoWbNtHDlaUZ5rKWUjY6 ytbHDkLMDmPXInE8rqYhMtd I1ysKjbIVterbAyYTZwP8Iv dmVkIGZyZXNoIGxhYmVsZWQ gdGhlIHBhdGllbnQncyBuYW 7dTTYeZ6Qhg2Rrh52xjjNuQ aXlZVLoBNNiztqnfHDvU8Yq l5UhDJJrzvHqkiqvgJoncUM iRyWjnvUfBWYaFAO3JJCrZU G7JXMgJHOldFWnI7jpIFgss MBtm4CgvUEqQMnydIhfctV3 gBN0vJVlMDFnr3LkmVl0VZX hbGNpZmllZCBwbGFxdWUuIC SKWKDcKTLdkiLcqJm3RQIfG KM9uU5jjtXmzkEpd5ObuQb1 xJCyAUpyUAYwDYHiaIczp3c uZyBkZWNhbGNpZmljYXRpb2 4uXHBhclxwYXIgUGlsYXIgQ XJndWVsbGVzLCBQQSwgSFQg BVPSQ3QiWYBktd4= MICROSCOPIC x1xsqBInJOCbfRH2FdCeLWF DESCRIPTION (test code lf3ngy4FohZUelFBnODxpmK = 3371) ZzqkCayb59oPP5xO64SZ0eL ALdOgG9LHKtvaW5Iwb6BHUv CWOziOIfL692z4aqi9pwwiE ohAJ8bIdaDWXlTEFzIRdrDE EyKjSsTUGnLv5vmPHsWETkt n0= [facility] [id number] 17:13:00 Test Item Value Reference Range Interpretation Comments Case Report (test code Surgical Pathology = 104) Report Case: [id number] Authorizing Provider: Justo Fitzgerald, Collected: 05/29/2020 08:36 AM Ordering Location: [facility] Received: 05/29/2020 10:20 AM PERIOPERATIVE SERVICES Pathologist: Herb Ramsey MD Specimen: Plaque, Right carotid artery plaque DIAGNOSIS (test code = f3lgjRPhMMGof5kwZABqwZI 3220) uZzEwMzNcZnRuYmpcdWMxIH tccnRmMVxlcGljOTIwMlxhb wTeFMRplYCuJ1CjvggmKPcp QD2uAD4upGucgIQbyJApWSX mXuNmq8nsh525rLJgr1biZT CFejwzuRi1jUflP69jq8Q9B didW88jsKBmQAywaDGhbxlb czIwIEFSVEVSWSwgTEVGVCB DQVJPVElELCBFTkRBUlRFUk CVIM6KQLrsjYVoWPWBBTAEU suLZGIDYGSYN4GMAHKZW6ZX QyBQTEFRVUVccGFyIExVTUl KJOixJvaSRrtEDWMLGi5NGg QOHCHcsg59YUK4TxIwn8T7W RY1DXJoZBNpj3szFNQjjRXu ZzEwMzNcZnRuYmpcdWMxXGR hLnFls2qfo165wRSql0pfNW GyHlI0tNVsCZSupLUcD591X JEjTWhqx0syr8TsYQImgLKm s2D6YONOpecspNd6tRttL99 si3V4RuibZ9wtKFIeSGOgM4 GiDE2rXHIlHhh2OJM6BQN2H MWjRDBnP4NnWX0zCKJxuAJy OWo4s3urmRewHIQjSBB0l1m cCXaxrcJbXL7hib7qfKf8u4 xjczEgRGVmYXVsdCBQYXJhZ 7SdjYxsEk7ktUm5uUpbHwge LMN6Xct5OG0wbz69cvc4pQz sURBharpmQtN2OHalPBVuvx poISf8DYymUBYfeMH0ZVQbg LKbZ7PlVENuUE6xkjm7PFB4 OWzoJWLbKnN4XSEbqPNaAKD ucYvjIAgjm560LKY9WmDwJW 7fV6Pqi8H1bG7gbSZrAIVmm BFmDwCsCIMlaa9iqXHhOFho y5ZiLHT5qxM9fTQmtMPuWPM sTaN2NYruKK5pel87SKKnHE Q1yr1ocRRbwXzrfyPsrLFnK SxqO3GwDOUgp137YSSfE6Hh KWXni1S4bnDsZlStNDUlmSF 6jyQ1DZUyEY1hykfpk4ffTW yxFPxnYEFfoyK5pjF2VVFvs WDmB4GdsM0nMWCbYQ9akbup k1upUOW3YDgyYFHkIYM0IyR uPOFoz8Deehg3JiTgd9DgwO GsGAtzA11wh501AYMigeZuO 1xwbGFpblxwbGFpblxmMFxm tqY9GQHbSPcdwbruKVAcPGj zJ9tcLfKqVVWlbQxmTNzkq5 NoXGYxXGZzMjJcdGFiXHRhY lu5QUYjmROtSQOmWdJmN7bp gepoPzNLUUMcj2xqD9aqpUO BwTGlC0ChKNpughKcCVlqMQ dhFVGvQQC2MI36FtmjIJOzf n19 CPT Code(s) (test code n4ecvIKnXMMcePI8LiKgYBE = 7600) fc2dcj2NroETkeMSkYLigcJ EzjpWnno31mMF1dZ66TY4vD LOmGqH0OXUdfmC2Quf3OTIe IVSygBIbZ893i8ssl5dzmxV qzMO5tMpzNWTmUQKxXGdqRN ZmLsVfPGgnTYC3KTl1LnVeL HBhcn0= CLINICAL HISTORY (test b8yywROiXLFtsDH2TjJmOBR code = 3356) vi5jpi1LmaCYwjJPfKRcwfD IxruGgbd32kTV0xG99PW7aR BFsSjF7PHUovgF6Qih9AAJm SILprRGyO750o8ody1hheyO zxTX2eNhnJGPaTLSgFJnlFS PsLzYfS4Givo7nrXFkz4Fya hawyZIiR6Lyd0JwJXAvijGd cnkgXHBhcn0= SPECIMEN SOURCE (test q1azyNZnVJWznBJ1GqFcWIY code = 3377) mu2hpk3MqfLKaqWPxFCaenT VurdDdrx65tGV6fY50KP7mV QFxZlE0LGXtuuK1Xse2NGCo KTZqbRApF169n4czj5fdvpH jsLV1bOypDFMpMOQpSBkbDD ZzMjAgUGxhcXVlXHBhcn0= GROSS DESCRIPTION h8dhhHJjAJUxhQSoKxWbJMW (test code = 3366) kBHXyc0frTZPrvPHpPdRmDq NcZnRuYmpcdWMxXGRlZmYwe 5spf141fKHli7noDDGyDaK9 rQOcZRNpoWDpI159g1yzy3s soxFcmEC2OYIpZJR2CMpnbm VixjN6FHjerAGnDwH2HWpba oOdCLcnuwIuwtScOgh6EUTc A889FWI6uHwql1haYKK8PYE kTSZdEcLiIg9gbXOvU184NB JuKRGNMMEqoNe3MCAnxqBif uNxnQEAt001H544b7yyABPu irHzeEwWbteeo4ptT630EBB hcGVydzEyMjQwXHBhcGVyaD D1GDQvDB5izzvmIkMiYZ5rd kcsKjCmKN9bzkk2QaAdFF7u cmdiNzIwXGhlYWRlcnkwXGZ mm6MfwoqwXV7nW5Quv3Q3tX 9maXRcZGVmdGFiNzIwXGZvc b6olDXpQNrpi0WkAKY2hnD5 wRWmxPPuPLEjUS81Lfysy7Q lVoawYIE3VDRhneLnz5Yzh3 siFdZveqTjW5ucH0XpUOWkB LIpAHAcAmDrpoXsn8Nkr6Of bGPdyJb5r9yrJURaLGQnxYp dt1kpCDQ2VSOyX4E0dMJve3 grGAapGTOteLD7koynSWlsF SYjemY9szfoSWeiBNJtxCE9 blguICbvTZQwNwE5kpdoGNe wGYGaPDK9PLagt847QWX1DQ xzYmtwYWdlXHBnbmNvbnRcc GduZGVjXHBsYWluXHBsYWlu XGYwXGZzMjRccWxccGxhaW5 qZuIwPxNzOWzwBE6iQIKgG1 swnBRnSGQfJGNmC9apJiFgt C6beJqwHYrfldNjVJZcS2Jq dmVkIGZyZXNoIGxhYmVsZWQ gdGhlIHBhdGllbnQncyBuYW 5aSHPyJ3Ygy5Lqq06bopBaZ nOxCNAbHTXvozeqyXPtK3Yv t4YmOXPccsBghrsojNixeXB kJpFlhvHiHURiLYG4XDXkXW L0XQBdFWXjbAJvX6kcKSbfl ZJkz7LfdJNiWWzmrBfphuZ5 hZG5sWGuSDRtu7DlwRe1ITL hbGNpZmllZCBwbGFxdWUuIC RVSTTbHVSiphVsyJd9FIAbH MR7eP3lsuGricGnl5LtbPo0 sKUvFJwjTCGwXIYmxFrhd8h uZyBkZWNhbGNpZmljYXRpb2 4uXHBhclxwYXIgUGlsYXIgQ XJndWVsbGVzLCBQQSwgSFQg OPJYO2IbTNLjfm1= MICROSCOPIC d0ounXLwYEZiuZE7GrJmGKD DESCRIPTION (test code ux3btf1SqlFFlbWRaWEqntZ = 3371) OwneMoxd40xOT7gK72YK1dX ELkHaF1GRQfgyK3Jer1WHLf FMVejWVeP091v8vdc4lhvdU hzET4vVwaDELrPOOzNJczSZ EdRgYgIOSmGc3twKAoXDZpi n0= [facility] [id number] 17:13:00Surgical Pathology Report Case: [id number] Authorizing Provider: Justo Fitzgerald, Collected: 05/29/2020 08:36 AM [facility]ingLocation: [facility] Received: 05/29/2020 10:20 AM PERIOPERATIVE SERVICES Pathologist: Herb Ramsey MD Specimen: Plaque, Right carotid artery plaque ARTERY, LEFT CAROTID, ENDARTERECTOMY:CALCIFIC ATHEROSCLEROTIC PLAQUELUMINAL FIBRIN THROMBUS Signing Pathologist Direct Phone Line: [phone] signed by Herb Ramsey MD on 06/03/2020 at 5:13 [id number]; [id number] of right carotid artery PlaqueReceived fresh labeled the patient's name, accession number and "right carotid artery plaque" is a 2.0 x 2.4 x 0.4 cm aggregate of ross-yellow tubular, focally calcified plaque. Tabulating Supervisor sections are submitted in A1 following decalcification.ANA Velázquez, HT (ASCP)PerformedPOC-Glucose [id number] 18:38:00 Test Item Value Reference Range Interpretation Comments POC-Glucose Meter (test 221 mg/dL 70-110 H : TE STED AT [facility] code = 1538) [address] [facility], [address]: Personnel Associate/Techni yu ID = [id number] for Renetta Mcpherson on Lab Interpretation (test Abnormal code = 95306-8) [facility]-Glucose [id number] 18:38:00 Test Item Value Reference Range Interpretation Comments POC-Glucose Meter (test 221 mg/dL 70-110 H : TE STED AT [facility] code = 1538) [address] [facility], 770 30: Personnel Associate/Techni yu ID = [id number] for Renetta Mcpherson on Lab Interpretation (test Abnormal code = 94153-4) [facility]-Glucose [id number] 18:38:00 Test Item Value Reference Range Interpretation Comments POC-Glucose Meter (test 221 mg/dL 70-110 H : TE STED AT [facility] code = 1538) [address] [facility], 770 30: Personnel Associate/Techni yu ID = [id number] for Renetta Mcpherson on Lab Interpretation (test Abnormal code = 01579-5) [facility]-GLUCOSE [id number] 18:38:00 Test Item Value Reference Range Interpretation Comments POC-GLUCOSE METER 221 mg/dL 70-110 H : TESTED A T [facility] 6720 (BEAKER) (test code = [facility], 1538) [id number]: Personnel Associate/Techni yu ID = [id number] for Noel Hansen ECG 12 [id number] 08:37:12Interface, External Ris In - 06/01/2020 3:14 PM CDTVentricular Rate 70 BPMAtrial Rate 70 BPMP-R Interval 174 msQRS Duration 112 msQ-T Interval 438 msQTC Calculation(Bazett) 473 msP [place] 47 degreesR [place] -42 degreesT [place] 120 degreesNormal sinus rhythm with sinus arrhythmiaLeft atrial enlargementLeft axis deviationInferior infarct (cited on or before 17-AUG-2017)Anterior infarct (cited on or before 22-AUG-2017)T wave abnormality, consider lateral ischemiaAbnormal ECGWhen compared with ECG of 21-MAY-2020 12:15,Premature ventricular complexes are no longer PresentQRS axis Shifted leftT wave inversionno longer evident in Inferior leadsT wave inversion less evident in Lateral leadsConfirmed by MD Viraj, [facility] ([id number]) on 05/31/2020 8:37:11 [facility] [id number] 21:19:00 Test Item Value Reference Range Interpretation Comments POC-GLUCOSE METER 246 mg/dL 70-110 H : TESTED A T [facility] 6720 (BEAKER) (test code = [facility], 1538) 39040: Personnel Associate/Techni yu ID = [id number] for PE KANDACE DAMIAN POCT-GLUCOSE [id number] 17:21:00 Test Item Value Reference Range Interpretation Comments POC-GLUCOSE METER 197 mg/dL 70-110 H : TESTED A T [facility] 6720 (BEAKER) (test code = [facility], 1538) 31237: Personnel Associate/Techni yu ID = [id number] for Terrance Echevarriaa POCT-GLUCOSE [id number] 12:47:00 Test Item Value Reference Range Interpretation Comments POC-GLUCOSE METER 239 mg/dL 70-110 H : TESTED A T [facility] 6720 (BEAKER) (test code = [facility], 1538) 57674: Personnel Associate/Techni yu ID = [id number] for KRISTINE BEAL [id number] 10:57:00 Test Item Value Reference Range Interpretation Comments RPR (test code = 35383-2) Nonreactive Nonreactive Lab Interpretation (test code = Normal 07660-6) [facility]:57[facility]00 Test Item Value Reference Range Interpretation Comments RPR (test code = 97931-7) Nonreactive Nonreactive Lab Interpretation (test code = Normal 90260-4) [facility] 10:57:00 Test Item Value Reference Range Interpretation Comments RPR (test code = 81465-6) Nonreactive Nonreactive Lab Interpretation (test code = Normal 85761-0) [facility] 10:57:00 Test Item Value Reference Range Interpretation Comments RPR SCREEN (BEAKER) (test code = Nonreactive Nonreactive 420) TSH/Free T4 If [id number] 09:20:00 Test Item Value Reference Range Interpretation Comments TSH (test code = 0.460 See_Comment [Automated 95083-0) message] The system which generated this result transmit david reference range : 0.350 - 4.940 uIU/mL. The reference range was not used to interpret this result as normal/abnormal . JENNA (test code = JENNA) Personnel Associate ID - JAILENE C Lab Interpretation Normal (test code = 99788-6) [facility] Center[facility] and [id number] 09:20:00 Test Item Value Reference Range Interpretation Comments Vitamin B12 (test 378 pg/mL 213-816 code = 2132-9) Folate (test code = 7.40 ng/mL See_Comment [Automa david 2284-8) message] The system which generated this result transmit david reference range : >=7.00. The reference range was not used to interpret this result as normal/abnormal . JENNA (test code = JENNA) Personnel Associate ID - JAILENE C Lab Interpretation Normal (test code = 21079-4) [facility]Free T4 If [id number] 09:20:00 Test Item Value Reference Range Interpretation Comments TSH (test code = 0.460 See_Comment [Automated 35023-1) message] The system which generated this result transmit david reference range : 0.350 - 4.940 uIU/mL. The reference range was not used to interpret this result as normal/abnormal . JENNA (test code = JENNA) Personnel Associate ID - JAILENE C Lab Interpretation Normal (test code = 79090-3) [facility] and [id number] 09:20:00 Test Item Value Reference Range Interpretation Comments Vitamin B12 (test 378 pg/mL 213-816 code = 2132-9) Folate (test code = 7.40 ng/mL See_Comment [Automa david 2284-8) message] The system which generated this result transmit david reference range : >=7.00. The reference range was not used to interpret this result as normal/abnormal . JENNA (test code = JENNA) Personnel Associate ID - JAILENE C Lab Interpretation Normal (test code = 61511-2) [facility] T[facility] [id number] 09:20:00 Test Item Value Reference Range Interpretation Comments TSH (test code = 0.460 See_Comment [Automated 21416-1) message] The system which generated this result transmit david reference range : 0.350 - 4.940 uIU/mL. The reference range was not used to interpret this result as normal/abnormal . JENNA (test code = JENNA) Personnel Associate ID - JAILENE C Lab Interpretation Normal (test code = 03190-1) [facility] Center[facility]12 and [id number] 09:20:00 Test Item Value Reference Range Interpretation Comments Vitamin B12 (test 378 pg/mL 213-816 code = 2132-9) Folate (test code = 7.40 ng/mL See_Comment [Automa david 2284-8) message] The system which generated this result transmit david reference range : >=7.00. The reference range was not used to interpret this result as normal/abnormal . JNENA (test code = JENNA) Personnel Associate ID - JAILENE C Lab Interpretation Normal (test code = 74414-8) [facility] CenterT[facility]FREE T4 IF [id number] 09:20:00 Test Item Value Reference Range Interpretation Comments THYROID STIMULATING HORMONE 0.460 uIU/mL 0.350-4.940 (BEAKER) (test code = 772) Personnel Associate ID - JAILENE CVITAMIN B12 AND [id number] 09:20:00 Test Item Value Reference Range Interpretation Comments VITAMIN B12 (BEAKER) 378 pg/mL 213-816 (test code = 774) FOLATE (BEAKER) 7.40 ng/mL See_Comment [Automated message] (test code = 362) The system which generated this result transmitted ref erence range: >=7.00. The reference range was not used to interpr et this result as normal/abnormal . Personnel Associate ID - JAILENE CPOCT-GLUCOSE [id number] 08:53:00 Test Item Value Reference Range Interpretation Comments POC-GLUCOSE METER 261 mg/dL 70-110 H : TESTED A T [facility] 6720 (BEAKER) (test code = [facility] [place], 1538) 04135: Personnel Associate/Techni yu ID = [id number] for SAFIA LIMAKRISTINE Hemoglobin [id number] 08:39:00 Test Item Value Reference Range Interpretation Comments Hemoglobin A1C (test code = 4548-4) 14.5 % 4.3-6.1 H Lab Interpretation (test code = Abnormal 49147-0) [facility] CenterH[facility] [id number] 08:39:00 Test Item Value Reference Range Interpretation Comments Hemoglobin A1C (test code = 4548-4) 14.5 % 4.3-6.1 H Lab Interpretation (test code = Abnormal 22545-2) [facility] CenterH[facility]oglobin [id number] 08:39:00 Test Item Value Reference Range Interpretation Comments Hemoglobin A1C (test code = 4548-4) 14.5 % 4.3-6.1 H Lab Interpretation (test code = Abnormal 89837-9) [facility] CenterHEMOGLOBIN [id number] 08:39:00 Test Item Value Reference Range Interpretation Comments HEMOGLOBIN A1C (BEAKER) (test code = 14.5 % 4.3-6.1 H 368) Lipid [id number] 07:49:00 Test Item Value Reference Range Interpretation Comments Triglycerides (test 221 mg/dL Specimen code = 2571-8) slightly hemolyzed Cholesterol (test 215 mg/dL Specimen code = 3-3) slightly hemolyzed HDL (test code = 30 mg/dL 2084-) LDL Calculated (test 141 mg/dL code = 65730-1) JENNA (test code = Triglyceride JENNA) Reference Range: Low Risk <150 Borderline 150-199 High Risk 200-499 Very High Risk >=500 Cholesterol Reference Range: Low Risk <200 Borderline 200-239 High Risk >240 HDL Cholesterol Reference Range: Low Risk >=60 High Risk <40 LDL Cholesterol Reference Range: Optimal <100 Near Optimal 100-129 Borderline 130-159 High 160-189 Very High >=190 Personnel Associate ID - EDASI [facility] CenterLip[facility] [id number] 07:49:00 Test Item Value Reference Range Interpretation Comments Triglycerides (test 221 mg/dL Specimen code = 2571-8) slightly hemolyzed Cholesterol (test 215 mg/dL Specimen code = 2093-3) slightly hemolyzed HDL (test code = 30 mg/dL 2084-9) LDL Calculated (test 141 mg/dL code = 36185-2) JENNA (test code = Triglyceride JENNA) Reference Range: Low Risk <150 Borderline 150-199 High Risk 200-499 Very High Risk >=500 Cholesterol Reference Range: Low Risk <200 Borderline 200-239 High Risk >240 HDL Cholesterol Reference Range: Low Risk >=60 High Risk <40 LDL Cholesterol Reference Range: Optimal <100 Near Optimal 100-129 Borderline 130-159 High 160-189 Very High >=190 Personnel Associate [place] [facility] [id number] 07:49:00 Test Item Value Reference Range Interpretation Comments Triglycerides (test 221 mg/dL Specimen code = 2571-8) slightly hemolyzed Cholesterol (test 215 mg/dL Specimen code = 2093-3) slightly hemolyzed HDL (test code = 30 mg/dL 2084-9) LDL Calculated (test 141 mg/dL code = 19208-2) JENNA (test code = Triglyceride JENNA) Reference Range: Low Risk <150 Borderline 150-199 High Risk 200-499 Very High Risk >=500 Cholesterol Reference Range: Low Risk <200 Borderline 200-239 High Risk >240 HDL Cholesterol Reference Range: Low Risk >=60 High Risk <40 LDL Cholesterol Reference Range: Optimal <100 Near Optimal 100-129 Borderline 130-159 High 160-189 Very High >=190 Personnel Associate [facility] [id number] 07:49:00 Test Item Value Reference Range Interpretation [...] Borderline 130-159 High 160-189 Very High >=190 Personnel Associate ID [facility] Met[facility] [id number] 07:08:00 Test Item Value Reference Range Interpretation Comments Sodium (test code = 138 meq/L 244-917 5485-2) Potassium (test code = 4.3 meq/L 3.5-5.1 Speci men slightly 2823-3) hemolyzed Chloride (test code = 103 meq/L 98-107 2074-0) CO2 (test code = 27 meq/L 2027-10) BUN (test code = 12 mg/dL 08-27 3094-0) Creatinine (test code 0.89 mg/dL 0.57-1.25 Specim en slightly = 2160-0) hemolyzed Glucose (test code = 268 mg/dL 70-105 H 2345-7) Calcium (test code = 8.5 mg/dL 8.4-10.2 22713-1) EGFR (test code = 86 mL/min/1.73 sq m [facility] [place] [address]-8) NOT ACCURATE CREATININE CLEARANCE IN PREDICTING GLOMERULAR FILTRATION RATE . ESTIMATED GFR I S NOT APPLICABLE FOR DIALYSIS PATIENTS. JENNA (test code = JENNA) Personnel Associate ID - EDASI Lab Interpretation Abnormal (test code = 56683-5) [facility]08[facility]00 Test Item Value Reference Range Interpretation Comments Magnesium (test code = 1.7 mg/dL 1.6-2.6 Speci men 52405-3) slightly hemolyzed JENNA (test code = JENNA) Personnel Associate ID - EDASI Lab Interpretation Normal (test code = 03856-2) [facility] [id number] 07:08:00 Test Item Value Reference Range Interpretation Comments Sodium (test code = 138 meq/L 693-141 1156-2) Potassium (test code = 4.3 meq/L 3.5-5.1 Speci men slightly 2823-3) hemolyzed Chloride (test code = 103 meq/L 98-107 2074-0) CO2 (test code = 27 meq/L 2027-10) BUN (test code = 12 mg/dL 08-27 3094-0) Creatinine (test code 0.89 mg/dL 0.57-1.25 Specim en slightly = 2160-0) hemolyzed Glucose (test code = 268 mg/dL 70-105 H 2345-7) Calcium (test code = 8.5 mg/dL 8.4-10.2 86789-9) EGFR (test code = 86 mL/min/1.73 [place] [address]-0) NOT ACCURATE CREATININE CLEARANCE IN PREDICTING GLOMERULAR FILTRATION RATE . ESTIMATED GFR I S NOT APPLICABLE FOR DIALYSIS PATIENTS. JENNA (test code = JENNA) Personnel Associate ID - EDASI Lab Interpretation Abnormal (test code = 11944-5) [facility] 07:08:00 Test Item Value Reference Range Interpretation Comments Magnesium (test code = 1.7 mg/dL 1.6-2.6 Speci men 15148-9) slightly hemolyzed JENNA (test code = JENNA) Personnel Associate ID - EDASI Lab Interpretation Normal (test code = 61740-6) [facility] [id number] 07:08:00 Test Item Value Reference Range Interpretation Comments Sodium (test code = 138 meq/L 644-423 3328-2) Potassium (test code = 4.3 meq/L 3.5-5.1 [...] Calcium (test code = 8.5 mg/dL 8.4-10.2 74424-2) EGFR (test code = 86 mL/min/1.[place] [address]-1) NOT ACCURATE CREATININE CLEARANCE IN PREDICTING GLOMERULAR FILTRATION RATE . ESTIMATED GFR I S NOT APPLICABLE FOR DIALYSIS PATIENTS. JENNA (test code = JENNA) Personnel Associate ID - EDASI Lab Interpretation Abnormal (test code = 73091-9) [facility] 07:08:00 Test Item Value Reference Range Interpretation Comments Magnesium (test code = 1.7 mg/dL 1.6-2.6 Speci men 24495-1) slightly hemolyzed JENNA (test code = JENNA) Personnel Associate ID - EDASI Lab Interpretation Normal (test code = 16503-5) [facility]00 Test Item Value Reference Range Interpretation Comments MAGNESIUM (BEAKER) 1.7 mg/dL 1.6-2.6 Specimen slightly (test code = 627) hemolyzed Personnel Associate ID - EDASIBASIC METABOLIC [id number] 07:08:00 Test Item Value Reference Range Interpretation [...] S NOT APPLICABLE FOR DIALYSIS PATIEN TS. Personnel Associate ID - EDASICBC with platelet count + automated [id number] 06:33:00 Test Item Value Reference Range Interpretation Comments WBC (test code = 6690-2) 10.7 See_Comment H [A utomated message] The system [employer] generated this result transmitted ref erence range: 3.5 - 10 .5 K/L. The refe rence range was not u sed to interpret this result as normal/abnor mal. RBC (test code = 789-8) 5.20 See_Comment [Au tomated message] The system [facility] generated this result transmitted ref erence range: 4.63 - 6 .08 M/L. The refe rence range was not u sed to interpret this result as normal/abnor mal. MCHC (test code = 786-4) 32.6 See_Comment [A utomated message] The system [facility] generated this result transmitted ref erence range: [...] L [Aut omated message] 777-3) The system [facility] generated this result transmitted ref erence range: 150 - 45 0 K/CU MM. The referen ce range was not u sed to interpret this result as normal/abnor mal. MPV (test code = 11.7 fL 9.4-12.4 15246-2) nRBC (test code = 413) 0 See_Comment [Aut omated message] The system [facility] generated this result transmitted ref erence range: [...] H [Aut omated message] 670) The system [facility] generated this result transmitted ref erence range: 1.78 - 5 .38 K/L. The refe rence range was not u sed to interpret this result as normal/abnor mal. # Lymphs (test code = 2.96 See_Comment [Auto mated message] 414) The system [facility] [facility] generated this result transmitted ref erence range: 1.32 - 3 .57 K/L. The refe rence range was not u sed to interpret this result as normal/abnor mal. # Monos (test code = 0.58 See_Comment [Autom ated message] 415) The system [facility] [facility] generated this result transmitted ref erence range: 0.30 - 0 .82 K/L. The refe rence range was not u sed to interpret this result as normal/abnor mal. # Eos (test code = 416) 0.20 See_Comment [Au tomated message] The system [facility] [facility] generated this result transmitted ref erence range: 0.04 - 0 .54 K/L. The refe rence range was not u sed to interpret this result as normal/abnor mal. # Baso (test code = 417) 0.05 See_Comment [A utomated message] The system [facility] generated this result transmitted ref erence range: 0.01 - 0 .08 K/L. The refe rence range was not u sed to interpret this result as normal/abnor mal. Immature 0 % 0-1 Granulocytes-Relative (test code = 2801) Lab Interpretation (test Abnormal code = 90309-6) [facility] with platelet count + automated [id number] 06:33:00 Test Item Value Reference Range Interpretation Comments WBC (test code = 6690-2) 10.7 See_Comment H [A utomated message] The system [facility] generated this result transmitted ref erence range: 3.5 - 10 .5 K/L. The refe rence range was not u sed to interpret this result as normal/abnor mal. RBC (test code = 789-8) 5.20 See_Comment [Au tomated message] The system [facility] generated this result transmitted ref erence range: 4.63 - 6 .08 M/L. The refe rence range was not u sed to interpret this result as normal/abnor mal. MCHC (test code = 786-4) 32.6 See_Comment [A utomated message] The system [facility] generated this result transmitted ref erence range: [...] L [Aut omated message] 777-3) The system [facility] generated this result transmitted ref erence range: 150 - 45 0 K/CU MM. The referen ce range was not u sed to interpret this result as normal/abnor mal. MPV (test code = 11.7 fL 9.4-12.4 26845-8) nRBC (test code = 413) 0 See_Comment [Aut omated message] The system [facility] generated this result transmitted ref erence range: [...] H [Aut omated message] 670) The system [facility] generated this result transmitted ref erence range: 1.78 - 5 .38 K/L. The refe rence range was not u sed to interpret this result as normal/abnor mal. # Lymphs (test code = 2.96 See_Comment [Auto mated message] 414) The system [facility] generated this result transmitted ref erence range: 1.32 - 3 .57 K/L. The refe rence range was not u sed to interpret this result as normal/abnor mal. # Monos (test code = 0.58 See_Comment [Autom ated message] 415) The system [facility] generated this result transmitted ref erence range: 0.30 - 0 .82 K/L. The refe rence range was not u sed to interpret this result as normal/abnor mal. # Eos (test code = 416) 0.20 See_Comment [Au tomated message] The system [facility] [facility] generated this result transmitted ref erence range: 0.04 - 0 .54 K/L. The refe rence range was not u sed to interpret this result as normal/abnor mal. # Baso (test code = 417) 0.05 See_Comment [A utomated message] The system [facility] generated this result transmitted ref erence range: 0.01 - 0 .08 K/L. The refe rence range was not u sed to interpret this result as normal/abnor mal. Immature 0 % 0-1 Granulocytes-Relative (test code = 2801) Lab Interpretation (test Abnormal code = 81791-7) [facility] with platelet count + automated [id number] 06:33:00 Test Item Value Reference Range Interpretation Comments WBC (test code = 6690-2) 10.7 See_Comment H [A utomated message] The system [facility] generated this result transmitted ref erence range: 3.5 - 10 .5 K/L. The refe rence range was not u sed to interpret this result as normal/abnor mal. RBC (test code = 789-8) 5.20 See_Comment [Au tomated message] The system [facility] generated this result transmitted ref erence range: 4.63 - 6 .08 M/L. The refe rence range was not u sed to interpret this result as normal/abnor mal. MCHC (test code = 786-4) 32.6 See_Comment [A utomated message] The system [facility] [facility] generated this result transmitted ref erence range: [...] = 148 See_Comment L [Aut omated message] 317-3) The system [facility] generated this result transmitted ref erence range: 150 - 45 0 K/CU MM. The referen ce range was not u sed to interpret this result as normal/abnor mal. MPV (test code = 11.7 fL 9.4-12.4 55363-5) nRBC (test code = 413) 0 See_Comment [Aut omated message] The system [facility] generated this result transmitted ref erence range: [...] H [Aut omated message] 670) The system [facility] [facility] generated this result transmitted ref erence range: 1.78 - 5 .38 K/L. The refe rence range was not u sed to interpret this result as normal/abnor mal. # Lymphs (test code = 2.96 See_Comment [Auto mated message] 414) The system [facility] [facility] generated this result transmitted ref erence range: 1.32 - 3 .57 K/L. The refe rence range was not u sed to interpret this result as normal/abnor mal. # Monos (test code = 0.58 See_Comment [Autom ated message] 415) The system [facility] generated this result transmitted ref erence range: 0.30 - 0 .82 K/L. The refe rence range was not u sed to interpret this result as normal/abnor mal. # Eos (test code = 416) 0.20 See_Comment [Au tomated message] The system [facility] generated this result transmitted ref erence range: 0.04 - 0 .54 K/L. The refe rence range was not u sed to interpret this result as normal/abnor mal. # Baso (test code = 417) 0.05 See_Comment [A utomated message] The system [facility] generated this result transmitted ref erence range: 0.01 - 0 .08 K/L. The refe rence range was not u sed to interpret this result as normal/abnor mal. Immature 0 % 0-1 Granulocytes-Relative (test code = 2801) Lab Interpretation (test Abnormal code = 15660-9) [facility] W/PLT COUNT & AUTO [id number] 06:33:00 Test Item Value Reference Range Interpretation [...] PERCENT (BEAKER) (test code = 2801) POCT-GLUCOSE [id number] 21:35:00 Test Item Value Reference Range Interpretation Comments POC-GLUCOSE METER 212 mg/dL 70-110 H : TESTED A T [facility] 6720 (BEAKER) (test code = [facility], 1538) 54589: Personnel Associate/Techni yu ID = [id number] for DELMER BEEBE SE POCT-GLUCOSE [id number] 17:51:00 Test Item Value Reference Range Interpretation Comments POC-GLUCOSE METER 238 mg/dL 70-110 H : TESTED A T [facility] 6720 (BEAKER) (test code = [facility], 1538) 33284: Personnel Associate/Techni yu ID = [id number] for PH ILIP, [place] BASIC METABOLIC [id number] 17:13:00 Test Item Value Reference Range Interpretation [...] S NOT APPLICABLE FOR DIALYSIS PATIEN TS. Personnel Associate ID - ISQgyoify-WFHX3366-71-22 16:00:00 Test Item Value Reference Range Interpretation Comments Glucose (test code = 2345-7) 233 mg/dL 70-105 H JENNA (test code = JENNA) Personnel Associate ID - DB Lab Interpretation (test Abnormal code = 49998-0) [facility]assium-[id number] 16:00:00 Test Item Value Reference Range Interpretation Comments Potassium (test code = 5.1 meq/L 3.5-5.1 Speci men 2823-3) markedly hemolyzed JENNA (test code = JENNA) Personnel Associate ID - DB Lab Interpretation Normal (test code = 97601-5) [facility] CenterGlucose-[id number] 16:00:00 Test Item Value Reference Range Interpretation Comments Glucose (test code = 2345-7) 233 mg/dL 70-105 H JENNA (test code = JENNA) Personnel Associate ID - DB Lab Interpretation (test Abnormal code = 13754-4) [id number] 16:00:00 Test Item Value Reference Range Interpretation Comments Potassium (test code = 5.1 meq/L 3.5-5.1 Speci men 2823-3) markedly hemolyzed JENNA (test code = JENNA) Personnel Associate ID - DB Lab Interpretation Normal (test code = 15808-9) [facility]-[id number] 16:00:00 Test Item Value Reference Range Interpretation Comments Glucose (test code = 2345-7) 233 mg/dL 70-105 H JENNA (test code = JENNA) Personnel Associate ID - DB Lab Interpretation (test Abnormal code = 45302-7) [facility]assium-[id number] 16:00:00 Test Item Value Reference Range Interpretation Comments Potassium (test code = 5.1 meq/L 3.5-5.1 Speci men 2823-3) markedly hemolyzed JENNA (test code = JENNA) Personnel Associate ID - DB Lab Interpretation Normal (test code = 03172-7) [facility] 16:00:00 Test Item Value Reference Range Interpretation Comments POTASSIUM (BEAKER) 5.1 meq/L 3.5-5.1 Specimen markedly (test code = 379) hemolyzed Personnel Associate ID - [id number] 16:00:00 Test Item Value Reference Range Interpretation Comments GLUCOSE RANDOM (BEAKER) (test code 233 mg/dL 70-105 H = 652) Personnel Associate ID - DBLactic Acid, [id number] 15:58:00 Test Item Value Reference Range Interpretation Comments Lactate, Art (test 1.6 mmol/L 0.5-2.2 Specimen code = 2874) slightly hemolyzed JENNA (test code = JENNA) Personnel Associate ID - DB Lab Interpretation Normal (test code = 72386-2) [facility] Center[facility], [id number] 15:58:00 Test Item Value Reference Range Interpretation Comments Lactate, Art (test 1.6 mmol/L 0.5-2.2 Specimen code = 2874) slightly hemolyzed JENNA (test code = JENNA) Personnel Associate ID - DB Lab Interpretation Normal (test code = 09427-1) [facility] CenterL[facility] Acid, [id number] 15:58:00 Test Item Value Reference Range Interpretation Comments Lactate, Art (test 1.6 mmol/L 0.5-2.2 Specimen code = 2874) slightly hemolyzed JENNA (test code = JENNA) Personnel Associate ID - DB Lab Interpretation Normal (test code = 33622-6) [facility] CenterLACTIC ACID, [id number] 15:58:00 Test Item Value Reference Range Interpretation Comments LACTATE BLOOD 1.6 mmol/L 0.5-2.2 Specimen sligh tly ARTERIAL (2) (BEAKER) hemoly zed (test code = 2874) Personnel Associate ID - DBPOCT-GLUCOSE [id number] 13:56:00 Test Item Value Reference Range Interpretation Comments POC-GLUCOSE METER 264 mg/dL 70-110 H : TESTED A T [facility] 6720 ([place]) (test code = [place] [facility], 1538) 33817: Personnel Associate/Techni yu ID = [id number] for MARY BETH BLANCA POCT-GLUCOSE [id number] 13:10:00 Test Item Value Reference Range Interpretation Comments POC-GLUCOSE METER 302 mg/dL 70-110 H : TESTED A T [facility] 6720 ([place]) (test code = [place], 1538) 47453: Personnel Associate/Techni yu ID = [id number] for MARY BETH BLANCA POCT-GLUCOSE [id number] 13:10:00 Test Item Value Reference Range Interpretation Comments POC-GLUCOSE METER 388 mg/dL 70-110 H : TESTED A T [facility] 6720 ([place]LE[place]) (test code = [place], 1538) 87726: Personnel Associate/Techni yu ID = [id number] for MARY BETH BLANCA RAD, CHEST, 1 VIEW, NON [id number] 11:52:00Reason for exam:->s/p [facility] : 1955 Sex: MFINAL REPORT RAD, CHEST, 1 VIEW, NON DEPT INDICATION: s/p cv surgery COMPARISON: Prior day's exam FINDINGS: Portable frontal view of the chest. IMPRESSION: Support Lines: Pacer device Lungs and pleura: Mild diffuse interstitial thickening is unchanged. No pneumothorax.Heart and mediastinum: Stable contours.Additional findings: None. Signed: Alayna Gomez MDRpadmini Verified Date/Time: 05/29/2020 11:52:15 Reading Location: [facility] Radiology Reading Room XR chest 1 view portable / [id number] 11:52:00 Interface, External Ris In - 05/29/2020 11:54 AM CDTFINAL REPORT RAD, CHEST, 1 VIEW, NON DEPT INDICATION: s/p cv surgery COMPARISON: Prior day's exam FINDINGS: Portable frontal view of the chest. IMPRESSION: Support Lines: Pacer device Lungs and pleura: Mild diffuse interstitial thickening is unchanged. No pneumothorax.Heart and mediastinum: Stable contours.Additional findings: None. Signed: Alayna Gomez Verified Date/Time: 05/29/2020 11:52:15 Reading Location:[facility] Radiology Reading Room [facility]BAS[facility]OL[facility] [id number] 10:38:00 Test Item Value Reference Range Interpretation [...] S NOT APPLICABLE FOR DIALYSIS PATIEN TS. Personnel Associate ID - RJ [id number] 10:33:00 Test Item Value Reference Range Interpretation Comments MAGNESIUM (BEAKER) 1.7 mg/dL 1.6-2.6 Specimen slightly (test code = 627) hemolyzed Personnel Associate ID - RJ MLACTIC ACID, [id number] 10:30:00 Test Item Value Reference Range Interpretation Comments LACTATE BLOOD 2.4 mmol/L 0.5-2.2 H Specimen sligh tly ARTERIAL (2) (BEAKER) hemoly zed (test code = 2874) Personnel Associate ID Marlo HERNANDEZ [facility] (Hemogram only)2020-05-29 10:24:00 Test Item Value Reference Range Interpretation Comments WBC (test code = 6690-2) 13.3 See_Comment H [A utomated message] The system [facility] generated this result transmitted ref erence range: 3.5 - 10 .5 K/L. The refe rence range was not u sed to interpret this result as normal/abnor mal. RBC (test code = 789-8) 5.52 See_Comment [Au tomated message] The system [facility] generated this result transmitted ref erence range: 4.63 - 6 .08 M/L. The refe rence range was not u sed to interpret this result as normal/abnor mal. MCHC (test code = 786-4) 33.1 See_Comment [A utomated message] The system [facility] generated this result transmitted ref erence range: [...] See_Comment [Aut omated message] 777-3) The system [facility] generated this result transmitted ref erence range: 150 - 45 0 K/CU MM. The referen ce range was not u sed to interpret this result as normal/abnor mal. MPV (test code = 11.4 fL 9.4-12.4 74135-7) nRBC (test code = 413) 0 See_Comment [Aut omated message] The system [facility] generated this result transmitted ref erence range: 0 - 0 /1 00 WBC. The refere nce range was not u sed to interpret this result as normal/abnor mal. Lab Interpretation (test Abnormal code = 29844-6) [facility] (Hem[facility] only)2020-05-29 10:24:00 Test Item Value Reference Range Interpretation Comments WBC (test code = 6690-2) 13.3 See_Comment H [A utomated message] The system [facility] generated this result transmitted ref erence range: 3.5 - 10 .5 K/L. The refe rence range was not u sed to interpret this result as normal/abnor mal. RBC (test code = 789-8) 5.52 See_Comment [Au tomated message] The system [facility] generated this result transmitted ref erence range: 4.63 - 6 .08 M/L. The refe rence range was not u sed to interpret this result as normal/abnor mal. MCHC (test code = 786-4) 33.1 See_Comment [A utomated message] The system [facility] generated this result transmitted ref erence range: [...] See_Comment [Aut omated message] 777-3) The system [facility] generated this result transmitted ref erence range: 150 - 45 0 K/CU MM. The referen ce range was not u sed to interpret this result as normal/abnor mal. MPV (test code = 11.4 fL 9.4-12.4 83599-4) nRBC (test code = 413) 0 See_Comment [Aut omated message] The system [facility] generated this result transmitted ref erence range: 0 - 0 /1 00 WBC. The refere nce range was not u sed to interpret this result as normal/abnor mal. Lab Interpretation (test Abnormal code = 80856-1) [facility] (Hemogram only)2020-05-29 10:24:00 Test Item Value Reference Range Interpretation Comments WBC (test code = 6690-2) 13.3 See_Comment H [A utomated message] The system [facility] generated this result transmitted ref erence range: 3.5 - 10 .5 K/L. The refe rence range was not u sed to interpret this result as normal/abnor mal. RBC (test code = 789-8) 5.52 See_Comment [Au tomated message] The system [facility] generated this result transmitted ref erence range: 4.63 - 6 .08 M/L. The refe rence range was not u sed to interpret this result as normal/abnor mal. MCHC (test code = 786-4) 33.1 See_Comment [A utomated message] The system [facility] generated this result transmitted ref erence range: [...] See_Comment [Aut omated message] 777-3) The system [facility] generated this result transmitted ref erence range: 150 - 45 0 K/CU MM. The referen ce range was not u sed to interpret this result as normal/abnor mal. MPV (test code = 11.4 fL 9.4-12.4 15073-8) nRBC (test code = 413) 0 See_Comment [Aut omated message] The system [facility] generated this result transmitted ref erence range: 0 - 0 /1 00 WBC. The refere nce range was not u sed to interpret this result as normal/abnor mal. Lab Interpretation (test Abnormal code = 78316-9) [facility] (HEMOGRAM ONLY)2020-05-29 10:24:00 Test Item Value [...] (BEAKER) (test code = 413) Blood gas, [id number] 10:11:00 Test Item Value Reference Range Interpretation Comments pH, Arterial (test code 7.41 7.35-7.45 = 2744-1) pCO2, Arterial (test 34 See_Comment L [Autom ated code = 2019-) message] The system which generated this result [...] 44 Lab Interpretation Abnormal (test code = 75737-8) [facility] Center[facility], [id number] 10:11:00 Test Item Value Reference Range Interpretation Comments pH, Arterial (test code 7.41 7.35-7.45 = 2744-1) pCO2, Arterial (test 34 See_Comment L [Autom ated code = 2019-) message] The system which generated this result [...] 44 Lab Interpretation Abnormal (test code = 11344-0) [facility], [id number] 10:11:00 Test Item Value Reference Range Interpretation Comments pH, Arterial (test code 7.41 7.35-7.45 = 2744-1) pCO2, Arterial (test 34 See_Comment L [Autom ated code = 2018-09) message] The system which generated this result [...] 44 Lab Interpretation Abnormal (test code = 73961-7) [facility] CenterBLOOD GAS, [id number] 10:11:00 Test Item Value Reference Range Interpretation [...] (test code = 1819) 44.0 HGB/HCT (H&H)-Stat [id number] 09:16:00 Test Item Value Reference Range Interpretation Comments Hemoglobin (test code = 16.9 See_Comment H [Au tomated message] 786-4) The system [facility] generated this result transmitted ref erence range: 13.0 - 1 6.8 GM/DL. The refe rence range was not u sed to interpret this result as normal/abnor mal. Hematocrit (test code = 50.0 % 40-50 4544-3) Lab Interpretation (test Abnormal code = 39180-3) [facility] CenterGlucose-Stat [id number] 09:16:00 Test Item Value Reference Range Interpretation Comments Glucose (test code = 2345-7) 321 mg/dL 70-110 H Lab Interpretation (test code = Abnormal 70457-5) [facility] [id number] 09:16:00 Test Item Value Reference Range Interpretation Comments Potassium (test code = 2823-3) 3.3 meq/L 3.6-5.5 L Lab Interpretation (test code = Abnormal 25958-0) [facility]Stat [id number] 09:16:00 Test Item Value Reference Range Interpretation Comments Hemoglobin (test code = 16.9 See_Comment H [Au tomated message] 786-4) The system [employer] generated this result transmitted ref erence range: 13.0 - 1 6.8 GM/DL. The refe rence range was not u sed to interpret this result as normal/abnor mal. Hematocrit (test code = 50.0 % 40.0-50.0 4544-3) Lab Interpretation (test Abnormal code = 99769-1) [facility] [id number] 09:16:00 Test Item Value Reference Range Interpretation Comments Glucose (test code = 2345-7) 321 mg/dL 70-110 H Lab Interpretation (test code = Abnormal 42728-5) [facility] [id number] 09:16:00 Test Item Value Reference Range Interpretation Comments Potassium (test code = 2823-3) 3.3 meq/L 3.6-5.5 L Lab Interpretation (test code = Abnormal 80908-0) [facility] [id number] 09:16:00 Test Item Value Reference Range Interpretation Comments Hemoglobin (test code = 16.9 See_Comment H [Au tomated message] 786-4) The system [employer] generated this result transmitted ref erence range: 13.0 - 1 6.8 GM/DL. The refe rence range was not u sed to interpret this result as normal/abnor mal. Hematocrit (test code = 50.0 % 40.0-50.0 4544-3) Lab Interpretation (test Abnormal code = 94293-0) [facility] [id number] 09:16:00 Test Item Value Reference Range Interpretation Comments Glucose (test code = 2345-7) 321 mg/dL 70-110 H Lab Interpretation (test code = Abnormal 21796-3) [facility] [id number] 09:16:00 Test Item Value Reference Range Interpretation Comments Potassium (test code = 2823-3) 3.3 meq/L 3.6-5.5 L Lab Interpretation (test code = Abnormal 67304-4) [facility] CenterBL[facility] GAS, [id number] 09:16:00 Test Item Value Reference Range Interpretation [...] (BEAKER) (test code = 1819) 70.0 POTASSIUM-STAT [id number] 09:16:00 Test Item Value Reference Range Interpretation Comments POTASSIUM (BEAKER) (test code = 3.3 meq/L 3.6-5.5 L 379) GLUCOSE-STAT [id number] 09:16:00 Test Item Value Reference Range Interpretation Comments GLUCOSE RANDOM (BEAKER) (test code 321 mg/dL 70-110 H = 652) HGB/HCT (H&H) - STAT [id number] 09:16:00 Test Item Value Reference Range Interpretation Comments HEMOGLOBIN (BEAKER) (test code = 16.9 GM/DL 13.0-16.8 H 410) HEMATOCRIT (BEAKER) (test code = 50.0 % 40.0-50.0 411) Sodium Na-Stat [id number] 09:14:00 Test Item Value Reference Range Interpretation Comments Sodium (test code = 2951-2) 139 meq/L 136-145 Lab Interpretation (test code = Normal 97118-8) [facility] [id number] 09:14:00 Test Item Value Reference Range Interpretation Comments Sodium (test code = 2951-2) 139 meq/L 136-145 Lab Interpretation (test code = Normal 64630-0) [facility] [id number] 09:14:00 Test Item Value Reference Range Interpretation Comments Sodium (test code = 2951-2) 139 meq/L 136-145 Lab Interpretation (test code = Normal 62461-1) [facility] [id number] 09:14:00 Test Item Value Reference Range Interpretation Comments SODIUM (BEAKER) (test code = 381) 139 meq/L 136-145 Calcium, [id number] 08:23:00 Test Item Value Reference Range Interpretation Comments Calcium, Ion (test code = 1993-04) 1.13 mmol/L 1.12-1.27 pH, Blood (test code = 71993-5) 7.28 [facility] Center[facility], [id number] 08:23:00 Test Item Value Reference Range Interpretation Comments Calcium, Ion (test code = 1993-04) 1.13 mmol/L 1.12-1.27 pH, Blood (test code = 66461-0) 7.28 [facility] CenterCal[facility], [id number] 08:23:00 Test Item Value Reference Range Interpretation Comments Calcium, Ion (test code = 1993-04) 1.13 mmol/L 1.12-1.27 pH, Blood (test code = 13089-3) 7.28 [facility] CenterBL[facility]OD GAS, [id number] 08:23:00 Test Item Value Reference Range Interpretation [...] (BEAKER) (test code = 1819) 86.0 GLUCOSE-STAT [id number] 08:23:00 Test Item Value Reference Range Interpretation Comments GLUCOSE RANDOM (BEAKER) (test code 365 mg/dL 70-110 H = 652) HGB/HCT (H&H) - STAT [id number] 08:23:00 Test Item Value Reference Range Interpretation Comments HEMOGLOBIN (BEAKER) (test code = 18.1 GM/DL 13.0-16.8 H 410) HEMATOCRIT (BEAKER) (test code = 53.0 % 40.0-50.0 H 411) CALCIUM, [id number] 08:23:00 Test Item Value Reference Range Interpretation Comments CALCIUM IONIZED (BEAKER) (test 1.13 mmol/L 1.12-1.27 code = 698) PH, BLOOD (BEAKER) (test code = 7.28 1810) SODIUM NA-STAT [id number] 08:22:00 Test Item Value Reference Range Interpretation Comments SODIUM (BEAKER) (test code = 381) 139 meq/L 136-145 POTASSIUM-STAT [id number] 08:22:00 Test Item Value Reference Range Interpretation Comments POTASSIUM (BEAKER) (test code = 3.9 meq/L 3.6-5.5 379) Type and screen, [id number] 07:30:00 Test Item Value Reference Range Interpretation Comments ABO/RH AUTOMATED (BEAKER) (test O POSITIVE code = 2260) Ab Scrn (test code = 890-4) NEGATIVE [facility] CenterType and screen, [id number] 07:30:00 Test Item Value Reference Range Interpretation Comments ABO/RH AUTOMATED (BEAKER) (test O POSITIVE code = 2260) Ab Scrn (test code = 890-4) NEGATIVE [facility] CenterType and screen, [id number] 07:30:00 Test Item Value Reference Range Interpretation Comments ABO/RH AUTOMATED (BEAKER) (test O POSITIVE code = 2260) Ab Scrn (test code = 890-4) NEGATIVE [facility] CenterPOCT-GLUCOSE [id number] 06:38:00 Test Item Value Reference Range Interpretation Comments POC-GLUCOSE METER 395 mg/dL 70-110 H : TESTED A T [facility] 6720 (BEAKER) (test code [facility], = 1538) [address]: Personnel Associate/Techni yu ID = [id number] for JORD AN, LACRYSTAL BASIC METABOLIC [id number] 13:06:00 Test Item Value Reference Range Interpretation [...] S NOT APPLICABLE FOR DIALYSIS PATIEN TS. Personnel Associate ID - PIAYA LProthrombin time/[id number] 13:03:00 Test Item Value Reference Interpretation Comments [...] valves. Lab Interpretation Normal (test code = 21574-4) [facility] CenterPROTHROMBIN TIME/[id number] 13:03:00 Test Item Value Reference Range Interpretation Comments PROTIME (BEAKER) 12.3 seconds 11.9-14.2 (test code = 759) INR (BEAKER) (test 0.94 See_Comment [Automat ed message] code = 370) The system [employer] generated this result transmitted ref erence range: [...] mechanical heart valves.CBC W/PLT COUNT & AUTO [id number] 12:53:00 Test Item Value Reference Range Interpretation [...] PERCENT (BEAKER) (test code = 2801) BLOOD [id number] 16:48:00 Test Item Value Reference Range Interpretation Comments CULTURE (BEAKER) (test No growth in 5 days code = 1095) BLOOD [id number] 16:48:00 Test Item Value Reference Range Interpretation Comments CULTURE (BEAKER) (test No growth in 5 days code = 1095) [id number] 12:53:00 Test Item Value Reference Range Interpretation Comments MAGNESIUM (BEAKER) (test code = 2.4 mg/dL 1.6-2.6 627) BASIC METABOLIC [id number] 12:53:00 Test Item Value Reference Range Interpretation [...] NOT APPLICABLE FOR DIALYSIS PATIEN TS. POCT-GLUCOSE [id number] 12:15:00 Test Item Value Reference Range Interpretation Comments POC-GLUCOSE METER 277 mg/dL 70-[address] [facility] 67 ([facility]) (test code = [facility] 1538) [address] POCT-GLUCOSE [id number] 08:07:00 Test Item Value Reference Range Interpretation Comments POC-GLUCOSE METER 184 mg/dL 70-110 H TESTED AT [place] [address] ([facility]) (test code = [facility] 1538) [address] BASIC METABOLIC [id number] 05:15:00 Test Item Value Reference Range Interpretation [...] S NOT APPLICABLE FOR DIALYSIS PATIEN TS. [id number] 05:09:00 Test Item Value Reference Range Interpretation Comments MAGNESIUM (BEAKER) (test code = 1.7 mg/dL 1.6-2.6 627) B-TYPE NATRIURETIC FACTOR (BNP)2017-08-29 05:06:00 Test Item Value Reference Range Interpretation Comments B-TYPE NATRIURETIC PEPTIDE (BEAKER) 370 pg/mL 0-100 H (test code = 700) LACTIC ACID, VENOUS, WHOLE [id number] 04:52:00 Test Item Value Reference Range Interpretation Comments LACTATE BLOOD VENOUS (2) (BEAKER) 1.8 mmol/L 0.5-2.2 (test code = 2872) Effective 06/11/2015: Units/Reference Range ChangeNew: 0.5-2.2 mmol/L Previous: 5-20 mg/dLCBC W/PLT COUNT & AUTO [id number] 04:35:00 Test Item Value Reference Range Interpretation [...] PERCENT (BEAKER) (test code = 2801) POCT-GLUCOSE [id number] 21:17:00 Test Item Value Reference Range Interpretation Comments POC-GLUCOSE METER 280 mg/dL 70-[address] [facility] 6720 (BEAKER) (test code = [place] 1538) [address] POCT-GLUCOSE [id number] 07:05:00 Test Item Value Reference Range Interpretation Comments POC-GLUCOSE METER 188 mg/dL 70-[address] [facility] 6720 (BEAKER) (test code = [place] [facility] 1538) [address] CALCIUM, [id number] 05:24:00 Test Item Value Reference Range Interpretation Comments CALCIUM IONIZED (BEAKER) (test 0.96 mmol/L 1.12-1.27 L code = 698) PH, BLOOD (BEAKER) (test code = 7.46 1810) [id number] 04:51:00 Test Item Value Reference Range Interpretation Comments POTASSIUM (BEAKER) (test code = 2.7 meq/L 3.5-5.1 L 379) PRN - repeat potassium levels every 1 hour until glucose level is less than 450 mg/[id number] 04:51:00 Test Item Value Reference Range Interpretation Comments PHOSPHORUS (BEAKER) (test code = 3.0 mg/dL 2.3-4.7 604) PRN - repeat potassium levels every 1 hour until glucose level is less than 450 mg/dLBASIC METABOLIC [id number] 04:51:00 Test Item Value Reference Range Interpretation [...] than 450 mg/dLCBC W/PLT COUNT & AUTO [id number] 04:16:00 Test Item Value Reference Range Interpretation [...] 0-1 PERCENT (BEAKER) (test code = 2801) [id number] 18:36:00 Test Item Value Reference Range Interpretation Comments POTASSIUM (BEAKER) (test code = 3.0 meq/L 3.5-5.1 L 379) PRN - repeat potassium levels every 1 hour until glucose level is less than 450 mg/[id number] 18:36:00 Test Item Value Reference Range Interpretation Comments MAGNESIUM (BEAKER) (test code = 2.1 mg/dL 1.6-2.6 627) PRN - repeat potassium levels every 1 hour until glucose level is less than 450 mg/dLPOCT-GLUCOSE [id number] 18:21:00 Test Item Value Reference Range Interpretation Comments POC-GLUCOSE METER 173 mg/dL 70-[address] [facility] 6720 (BEAKER) (test code = [place] 1538) [address] POCT-GLUCOSE [id number] 12:08:00 Test Item Value Reference Range Interpretation Comments POC-GLUCOSE METER 206 mg/dL 70-[address] [facility] 6720 (BEAKER) (test code = [place] 1538) [address] [id number] 09:28:00 Test Item Value Reference Range Interpretation Comments POTASSIUM (BEAKER) (test code = 3.1 meq/L 3.5-5.1 L 379) PRN - repeat potassium levels every 1 hour until glucose level is less than 450 mg/[id number] 09:28:00 Test Item Value Reference Range Interpretation Comments MAGNESIUM (BEAKER) (test code = 1.8 mg/dL 1.6-2.6 627) PRN - repeat potassium levels every 1 hour until glucose level is less than 450 mg/[id number] 08:41:00 Test Item Value Reference Range Interpretation Comments PHOSPHORUS (BEAKER) (test code = 3.1 mg/dL 2.3-4.7 604) [id number] 08:41:00 Test Item Value Reference Range Interpretation Comments MAGNESIUM (BEAKER) (test code = 1.8 mg/dL 1.6-2.6 627) BASIC METABOLIC [id number] 08:41:00 Test Item Value Reference Range Interpretation [...] NOT APPLICABLE FOR DIALYSIS PATIEN TS. POCT-GLUCOSE [id number] 07:57:00 Test Item Value Reference Range Interpretation Comments POC-GLUCOSE METER 156 mg/dL 70-[address] [facility] 6720 (BEAKER) (test code = [place] 1538) [address] CALCIUM, [id number] 06:01:00 Test Item Value Reference Range Interpretation Comments CALCIUM IONIZED (BEAKER) (test 1.05 mmol/L 1.12-1.27 L code = 698) PH, BLOOD (BEAKER) (test code = 7.46 1810) OXYGEN SATURATION, [id number] 05:58:00 Test Item Value Reference Range Interpretation Comments O2 SATURATION (MEASURED) (BEAKER) 62.7 % (test code = 1455) [id number] 02:38:00 Test Item Value Reference Range Interpretation Comments POTASSIUM (BEAKER) 3.2 meq/L 3.5-5.1 L Specimen slightly (test code = 379) hemolyzed PRN - repeat potassium levels every 1 hour until glucose level is less than 450 mg/dLCBC W/PLT COUNT & AUTO [id number] 02:29:00 Test Item Value Reference Range Interpretation [...] PERCENT (BEAKER) (test code = 2801) POCT-GLUCOSE [id number] 00:21:00 Test Item Value Reference Range Interpretation Comments POC-GLUCOSE METER 166 mg/dL 70-[address] [facility] 6720 (BEAKER) (test code = [facility] 1538) [address] RAD, CHEST, 1 VIEW, NON [id number] 22:03:00Reason for exam:->preopShould this be performed at [...] Nance Verified Date/Time: 08/26/2017 22:03:18 Reading Location: [address] Consult Reading Room [id number] 21:21:00 Test Item Value Reference Range Interpretation Comments PHOSPHORUS (BEAKER) (test code = 1.8 mg/dL 2.3-4.7 L 604) [id number] 21:21:00 Test Item Value Reference Range Interpretation Comments MAGNESIUM (BEAKER) (test code = 2.2 mg/dL 1.6-2.6 627) BASIC METABOLIC [id number] 21:21:00 Test Item Value Reference Range Interpretation [...] NOT APPLICABLE FOR DIALYSIS PATIEN TS. CALCIUM, [id number] 19:57:00 Test Item Value Reference Range Interpretation Comments CALCIUM IONIZED (BEAKER) (test 1.06 mmol/L 1.12-1.27 L code = 698) PH, BLOOD (BEAKER) (test code = 7.48 1790) Check serum Ionized Calcium level after 4 hours after IV Calcium replacement. [id number] 19:35:00 Test Item Value Reference Range Interpretation Comments POTASSIUM (BEAKER) (test code = 3.0 meq/L 3.5-5.1 L 379) PRN - repeat potassium levels every 1 hour until glucose level is less than 450 mg/dLPOCT-GLUCOSE [id number] 18:15:00 Test Item Value Reference Range Interpretation Comments POC-GLUCOSE METER 276 mg/dL 70-[address] [facility] 6720 (BEAKER) (test code = [place] 1538) [address] [id number] 12:52:00 Test Item Value Reference Range Interpretation Comments PHOSPHORUS (BEAKER) (test code = 1.7 mg/dL 2.3-4.7 L 604) [id number] 12:52:00 Test Item Value Reference Range Interpretation Comments MAGNESIUM (BEAKER) (test code = 1.9 mg/dL 1.6-2.6 627) BASIC METABOLIC [id number] 12:52:00 Test Item Value Reference Range Interpretation [...] NOT APPLICABLE FOR DIALYSIS PATIEN TS. CALCIUM, [id number] 12:51:00 Test Item Value Reference Range Interpretation Comments CALCIUM IONIZED (BEAKER) (test 1.01 mmol/L 1.12-1.27 L code = 698) PH, BLOOD (BEAKER) (test code = 7.49 1810) OXYGEN SATURATION, [id number] 12:50:00 Test Item Value Reference Range Interpretation Comments O2 SATURATION (MEASURED) (BEAKER) 59.9 % (test code = 1455) POCT-GLUCOSE [id number] 11:41:00 Test Item Value Reference Range Interpretation Comments POC-GLUCOSE METER 236 mg/dL 70-[address] [facility] 67 (BEAKER) (test code = [place] [facility] 1538) [address] OXYGEN SATURATION, [id number] 08:00:00 Test Item Value Reference Range Interpretation Comments O2 SATURATION (MEASURED) (BEAKER) 65.7 % (test code = 1455) POCT-GLUCOSE [id number] 07:53:00 Test Item Value Reference Range Interpretation Comments POC-GLUCOSE METER 204 mg/dL 70-110 H TESTED AT [place] [address] ([facility]) (test code = [facility] [place] [facility] 1538) [address] SPUTUM CULTURE + GRAM [id number] 07:40:00 Test Item Value Reference Range Interpretation Comments CULTURE (BEAKER) Oropharyngeal (test code = 1095) contamination, specimen rejected. Recollect requested. GRAM STAIN RESULT No White blood cells seen (BEAKER) (test code = 1123) GRAM STAIN RESULT >25 epithelial cells (BEAKER) (test code = 35216) GRAM STAIN RESULT <1+ yeast with (BEAKER) (test code pseudohyphae = 82035) RAD, ABDOMEN/KUB, 1 VIEW [id number] 07:34:00Reason for exam:->corpak placementShould this be performed at the bedside?->YesFINAL REPORT Abdomen one view shows feeding tube at the pylorus. Signed: Vandana Alfredo MDReport Verified Date/Time: 08/26/2017 07:34:48 Reading Location: [facility] Radiology Reading Room RAD, CHEST, 1 VIEW, NON [id number] 07:27:00Reason for exam:->respiratory insufficiencyShould this be performed [...] left hemithorax opacities appear worse. Signed: Vandana Toddeport Verified Date/Time: 08/26/2017 07:27:28 Reading Location: [facility] Radiology Reading Room BASIC METABOLIC [id number] 05:32:00 Test Item Value Reference Range Interpretation [...] S NOT APPLICABLE FOR DIALYSIS PATIEN TS. [id number] 05:31:00 Test Item Value Reference Range Interpretation Comments MAGNESIUM (BEAKER) (test code = 2.2 mg/dL 1.6-2.6 627) CBC W/PLT COUNT & AUTO [id number] 04:49:00 Test Item Value Reference Range Interpretation [...] 2801) CT BRAIN WITHOUT IV CONTRAST - [id number] 02:23:00Reason for exam:- >confusion/delirium, altered LOC unexplainedFINAL [...] of an acute intracranial process. Signed: Mary Zimmereport Verified Date/Time: 08/26/2017 02:23:10 Reading Location: [address] Body Reading Room [id number] 01:02:00 Test Item Value Reference Range Interpretation Comments POTASSIUM (BEAKER) (test code = 3.3 meq/L 3.5-5.1 L 379) PRN - repeat potassium levels every 1 hour until glucose level is less than 450 mg/[id number] 01:02:00 Test Item Value Reference Range Interpretation Comments MAGNESIUM (BEAKER) (test code = 1.9 mg/dL 1.6-2.6 627) PRN - repeat potassium levels every 1 hour until glucose level is less than 450 mg/dLPOCT-GLUCOSE [id number] 22:07:00 Test Item Value Reference Range Interpretation Comments POC-GLUCOSE METER 270 mg/dL 70-[address] [facility] 6720 (BEAKER) (test code = [place] 1538) [address] BLOOD GAS, [id number] 21:24:00 Test Item Value Reference Range Interpretation [...] code = 1819) 44.0 % SODIUM NA-STAT [id number] 21:19:00 Test Item Value Reference Range Interpretation Comments SODIUM (BEAKER) (test code = 381) 142 meq/L 135-148 [id number] 20:16:00 Test Item Value Reference Range Interpretation Comments MAGNESIUM (BEAKER) 2.3 mg/dL 1.6-2.6 Specimen slightly (test code = 627) hemolyzed PRN - repeat potassium levels every 1 hour until glucose level is less than 450 mg/[id number] 20:16:00 Test Item Value Reference Range Interpretation Comments POTASSIUM (BEAKER) 3.6 meq/L 3.5-5.1 Specimen slightly (test code = 379) hemolyzed PRN - repeat potassium levels every 1 hour until glucose level is less than 450 mg/[id number] 18:42:00 Test Item Value Reference Range Interpretation Comments SODIUM (BEAKER) (test code = 381) 144 meq/L 136-145 EEG AWAKE AND [id number] 18:32:00Reason for exam:->To rule out seizures/ AMSDATE OF REPORT: CC: [id number] Number: [id number] time: 14:55 Stop time: 15:20ICD-10: R56.9CPT Code: 47824 HISTORY: 62 yo male with PMHx of ALL, [place], HTN, 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 [...] BEAR MONTANEZ MD on 08/25/2017 06:32 PMBLOOD [id number] 17:49:00 Test Item Value Reference Range Interpretation Comments CULTURE (BEAKER) (test No growth in 5 days code = 1095) BLOOD [id number] 17:48:00 Test Item Value Reference Range Interpretation Comments CULTURE (BEAKER) (test No growth in 5 days code = 1095) POCT-GLUCOSE [id number] 17:30:00 Test Item Value Reference Range Interpretation Comments POC-GLUCOSE METER 254 mg/dL 70-[address] [facility] 6720 ([facility]) (test code = [place] 1538) [address] POCT-GLUCOSE [id number] 11:50:00 Test Item Value Reference Range Interpretation Comments POC-GLUCOSE METER 252 mg/dL 70-[address] [facility] 6720 (BEAKER) (test code = [place] 1538) [address] POCT-GLUCOSE [id number] 09:11:00 Test Item Value Reference Range Interpretation Comments POC-GLUCOSE METER 312 mg/dL 70-[address] [facility] 6720 (BEYASIR) (test code = [place] 1538) [address] RAD, CHEST, 1 VIEW, NON [id number] 07:31:00Reason for exam:->pulmonary edemaShould this be performed at the bedside?->YesFINAL REPORT Chest one view compared to August 24 Discussion: Mild cardiac prominence and interstitial edema are noted. No effusion or pneumothorax. Feeding tube and right IJ line in place. IMPRESSIONS: Interstitial edema is worse. Signed: Vandana Todd Verified Date/Time: 08/25/2017 07:31:54 Reading Location: [facility] Radiology Reading Room [id number] 07:13:00 Test Item Value Reference Range Interpretation Comments MAGNESIUM (BEAKER) (test code = 1.8 mg/dL 1.6-2.6 627) BASIC METABOLIC [id number] 07:13:00 Test Item Value Reference Range Interpretation [...] PATIEN TS. CBC W/PLT COUNT & AUTO [id number] 04:57:00 Test Item Value Reference Range Interpretation [...] (BEAKER) (test code = 2801) BLOOD GAS, [id number] 04:31:00 Test Item Value Reference Range Interpretation [...] code = 1819) 44.0 % OXYGEN SATURATION, [id number] 04:20:00 Test Item Value Reference Range Interpretation Comments O2 SATURATION (MEASURED) (BEAKER) 64.8 % (test code = 1455) POCT-GLUCOSE [id number] 22:39:00 Test Item Value Reference Range Interpretation Comments POC-GLUCOSE METER 196 mg/dL 70-[address] [facility] 6720 (BEAKER) (test code = [place] 1538) [address] [id number] 19:20:00 Test Item Value Reference Range Interpretation Comments POTASSIUM (BEAKER) 3.8 meq/L 3.5-5.1 Specimen slightly (test code = 379) hemolyzed PRN - repeat potassium levels every 1 hour until glucose level is less than 450 mg/dLCALCIUM, [id number] 18:28:00 Test Item Value Reference Range Interpretation Comments CALCIUM IONIZED (BEAKER) (test 1.04 mmol/L 1.12-1.27 L code = 698) PH, BLOOD (BEAKER) (test code = 7.49 0260) Check serum Ionized Calcium level after 4 hours after IV Calcium replacement. POCT-GLUCOSE [id number] 18:23:00 Test Item Value Reference Range Interpretation Comments POC-GLUCOSE METER 194 mg/dL 70-[address] [facility] 67 ([facility]) (test code = [place] [facility] 1538) [address] VANCOMYCIN LEVEL, [id number] 16:50:00 Test Item Value Reference Range Interpretation Comments VANCOMYCIN TROUGH ([facility]) (test 11.3 ug/mL 10.0-20.0 code = 522) Please draw 30 minutes prior to next Vancomycin [id number] 16:06:00 Test Item Value Reference Range Interpretation Comments POTASSIUM ([facility]) (test code = 3.6 meq/L 3.5-5.1 379) PRN - repeat potassium levels every 1 hour until glucose level is less than 450 mg/[id number] 13:08:00 Test Item Value Reference Range Interpretation Comments POTASSIUM ([facility]) (test code = 3.4 meq/L 3.5-5.1 L 379) PRN - repeat potassium levels every 1 hour until glucose level is less than 450 mg/dLPOCT-GLUCOSE [id number] 12:38:00 Test Item Value Reference Range Interpretation Comments POC-GLUCOSE METER 217 mg/dL 70-110 H TESTED AT [place] [address] ([facility]) (test code = [place] [facility] 1538) [address] [id number] 11:26:00 Test Item Value Reference Range Interpretation Comments PROCALCITONIN ([facility]) (test code 0.74 ng/mL <0.05 H = 3036) SEPSIS RISK (ng/mL)Low: 0.05-0.50Intermediate: 0.51-2.00High: >=2.01CALCIUM, [id number] 10:51:00 Test Item Value Reference Range Interpretation Comments CALCIUM IONIZED ([facility]) (test 1.06 mmol/L 1.12-1.27 L code = 698) PH, BLOOD ([facility]) (test code = 7.39 0380) Check serum Ionized Calcium level after 4 hours after IV Calcium replacement. [id number] 08:53:00 Test Item Value Reference Range Interpretation Comments POTASSIUM (BEAKER) (test code = 3.6 meq/L 3.5-5.1 379) Check Serum Potassium level 2 hours after oral potassium replacement completed or 30 min after intravenous potassium replacement.[id number] 08:53:00 Test Item Value Reference Range Interpretation Comments MAGNESIUM (BEAKER) (test code = 2.6 mg/dL 1.6-2.6 627) Check Serum Potassium level 2 hours after oral potassium replacement completed or 30 min after intravenous potassium replacement.POCT-GLUCOSE [id number] 07:35:00 Test Item Value Reference Range Interpretation Comments POC-GLUCOSE METER 180 mg/dL 70-[address] [facility] 6720 (BEAKER) (test code = [place] 1538) [address] [id number] 04:29:00 Test Item Value Reference Range Interpretation Comments PHOSPHORUS (BEAKER) (test code = 2.9 mg/dL 2.3-4.7 604) [id number] 04:29:00 Test Item Value Reference Range Interpretation Comments MAGNESIUM (BEAKER) (test code = 1.9 mg/dL 1.6-2.6 627) BASIC METABOLIC [id number] 04:29:00 Test Item Value Reference Range Interpretation [...] PATIEN TS. RAD, CHEST, 1 VIEW, NON [id number] 04:23:00Reason for exam:->ptxShould this be performed at [...] MDReport Verified Date/Time: 08/24/2017 04:23:14 Reading Location: [address] Reading Room PROTHROMBIN TIME/[id number] 04:15:00 Test Item Value Reference Range Interpretation [...] (BEAKER) (test code = 2801) BLOOD GAS, [id number] 03:54:00 Test Item Value Reference Range Interpretation [...] code = 1819) 100.0 % OXYGEN SATURATION, [id number] 03:54:00 Test Item Value Reference Range Interpretation Comments O2 SATURATION (MEASURED) (BEAKER) 65.9 % (test code = 1455) CALCIUM, [id number] 03:54:00 Test Item Value Reference Range Interpretation Comments CALCIUM IONIZED (BEAKER) (test 1.02 mmol/L 1.12-1.27 L code = 698) PH, BLOOD (BEAKER) (test code = 7.44 1810) POCT-GLUCOSE [id number] 00:15:00 Test Item Value Reference Range Interpretation Comments POC-GLUCOSE METER 221 mg/dL 70-[address] [facility] 67 (BEAKER) (test code = [place] 1538) [address] [id number] 00:13:00 Test Item Value Reference Range Interpretation Comments POTASSIUM (BEAKER) (test code = 3.3 meq/L 3.5-5.1 L 379) PRN - repeat potassium levels every 1 hour until glucose level is less than 450 mg/[id number] 21:10:00 Test Item Value Reference Range Interpretation Comments POTASSIUM (BEAKER) (test code = 3.6 meq/L 3.5-5.1 379) PRN - repeat potassium levels every 1 hour until glucose level is less than 450 mg/[id number] 21:10:00 Test Item Value Reference Range Interpretation Comments MAGNESIUM (BEAKER) (test code = 2.3 mg/dL 1.6-2.6 627) PRN - repeat potassium levels every 1 hour until glucose level is less than 450 mg/dLCALCIUM, [id number] 20:49:00 Test Item Value Reference Range Interpretation Comments CALCIUM IONIZED (BEAKER) (test 1.02 mmol/L 1.12-1.27 L code = 698) PH, BLOOD (BEAKER) (test code = 7.40 1810) Check serum Ionized Calcium level after 4 hours after IV Calcium replacement. POCT-GLUCOSE [id number] 19:20:00 Test Item Value Reference Range Interpretation Comments POC-GLUCOSE METER 157 mg/dL 70-110 H TESTED AT [place] [address] ([facility]) (test code = [place] [facility] 1538) [address] POCT-GLUCOSE [id number] 19:20:00 Test Item Value Reference Range Interpretation Comments POC-GLUCOSE METER 108 mg/dL 70-110 TESTED AT [place] [address] (BEAKER) (test code = [place] [facility] 1538) [address] POCT-GLUCOSE [id number] 19:20:00 Test Item Value Reference Range Interpretation Comments POC-GLUCOSE METER 130 mg/dL 70-110 H TESTED AT [place] [address] ([facility]) (test code = [place] [facility] 1538) [address] POCT-GLUCOSE [id number] 19:20:00 Test Item Value Reference Range Interpretation Comments POC-GLUCOSE METER 172 mg/dL 70-110 H TESTED AT [place] [address] ([facility]) (test code = [place] [facility] 1538) [address] POCT-GLUCOSE [id number] 19:20:00 Test Item Value Reference Range Interpretation Comments POC-GLUCOSE METER 215 mg/dL 70-110 H TESTED AT [place] [address] ([facility]) (test code = [facility] [place] [facility] 1538) [address] [id number] 15:32:00 Test Item Value Reference Range Interpretation Comments POTASSIUM (BEAKER) (test code = 3.1 meq/L 3.5-5.1 L 379) PRN - repeat potassium levels every 1 hour until glucose level is less than 450 mg/[id number] 15:32:00 Test Item Value Reference Range Interpretation Comments MAGNESIUM (BEAKER) (test code = 1.9 mg/dL 1.6-2.6 627) PRN - repeat potassium levels every 1 hour until glucose level is less than 450 mg/dLCALCIUM, [id number] 14:59:00 Test Item Value Reference Range Interpretation Comments CALCIUM IONIZED (BEAKER) (test 0.96 mmol/L 1.12-1.27 L code = 698) PH, BLOOD (BEAKER) (test code = 7.46 1810) Check serum Ionized Calcium level after 4 hours after IV Calcium replacement. [id number] 13:11:00 Test Item Value Reference Range Interpretation Comments MAGNESIUM (BEAKER) (test code = 2.0 mg/dL 1.6-2.6 627) BASIC METABOLIC [id number] 10:37:00 Test Item Value Reference Range Interpretation [...] APPLICABLE FOR DIALYSIS PATIEN TS. U/S, ABDOMINAL, [id number] 10:24:00Abdomen limited area? Add comment if clarification [...] MDReport Verified Date/Time: 08/23/2017 10:24:29 Reading Location: [facility] [id number] Ultrasound Reading Room SPUTUM CULTURE + GRAM [id number] 09:59:00 Test Item Value Reference Range Interpretation Comments CULTURE (BEAKER) (test See comment code = 1095) GRAM STAIN RESULT 2+ WBCs (BEAKER) (test code = 1123) GRAM STAIN RESULT 5-10 epithelial cells (BEAKER) (test code = 591422) GRAM STAIN RESULT No organisms seen (BEAKER) (test code = 403987) <1+ YeastNo Normal respiratory jessica presentCBC W/PLT COUNT & AUTO [id number] 09:57:00 Test Item Value Reference Range Interpretation [...] 75.1 % (test code = 1455) POCT-GLUCOSE [id number] 09:06:00 Test Item Value Reference Range Interpretation Comments POC-GLUCOSE METER 175 mg/dL 70-[address] [facility] 6720 (BEAKER) (test code = [place] 1538) [address] POCT-GLUCOSE [id number] 09:06:00 Test Item Value Reference Range Interpretation Comments POC-GLUCOSE METER 108 mg/dL 70-[address] [facility] 6720 ([facility]) (test code = [place] 1538) [address] POCT-GLUCOSE [id number] 09:06:00 Test Item Value Reference Range Interpretation Comments POC-GLUCOSE METER 95 mg/dL 70-[address] [facility] 6720 ([facility]) (test code = [place] [facility] [address] 1538) POCT-GLUCOSE [id number] 09:06:00 Test Item Value Reference Range Interpretation Comments POC-GLUCOSE METER 120 mg/dL 70-[address] [facility] 6720 ([facility]) (test code = [place] [facility] 1538) [address] PLATELET AGGREGATION: DRUG [id number] 08:24:00 Test Item Value Reference Range Interpretation [...] (BEAKER) ADP suggest a (test code = 041095) Z3H26-bitwrywci drug effect. [id number] Chanel Ryder, ([facility]) (test code = (electronic 0516) signature) PLATELET COUNT AGG 120 K/CU MM 150-450 L (BEAKER) (test code = 2656) RAD, CHEST, 1 VIEW, NON [id number] 07:26:00Reason for exam:->ptxShould this be performed at the bedside?->YesFINAL REPORT Chest one view compared to August 22 Discussion: Cardiac prominence and mild pulmonary congestion are similar. No effusion or pneumothorax. Right IJ line in place. Support tubes noted. Signed: Vandana Todd Verified Date/Time: 08/23/2017 07:26:37 Reading Location: [facility] Radiology Reading Room BLOOD GAS, [id number] 07:25:00 Test Item Value Reference Range Interpretation [...] (BEAKER) (test code = 1819) 80.0 % [id number] 06:34:00 Test Item Value Reference Range Interpretation Comments FERRITIN (BEAKER) (test code = 361) 268 ng/mL 5-275 VITAMIN B12 AND [id number] 06:34:00 Test Item Value Reference Range Interpretation Comments VITAMIN B12 (BEAKER) (test code = 500 pg/mL 213-816 774) FOLATE (BEAKER) (test code = 362) 12.4 ng/mL >=7.0 RETICULOCYTE [id number] 06:01:00 Test Item Value Reference Range Interpretation [...] % 20-55 L (test code = 2590) [id number] 05:50:00 Test Item Value Reference Range Interpretation Comments MAGNESIUM (BEAKER) (test code = 2.1 mg/dL 1.6-2.6 627) BASIC METABOLIC [id number] 05:50:00 Test Item Value Reference Range Interpretation [...] NOT APPLICABLE FOR DIALYSIS PATIEN TS. CALCIUM, [id number] 05:33:00 Test Item Value Reference Range Interpretation Comments CALCIUM IONIZED (BEAKER) (test 1.02 mmol/L 1.12-1.27 L code = 698) PH, BLOOD (BEAKER) (test code = 7.45 1810) BLOOD GAS, [id number] 05:32:00 Test Item Value Reference Range Interpretation [...] (test code = 1819) 40.0 % POCT-GLUCOSE [id number] 02:47:00 Test Item Value Reference Range Interpretation Comments POC-GLUCOSE METER 137 mg/dL 70-110 H TESTED AT [place] [address] ([facility]) (test code = [place] 1538) [address] POCT-GLUCOSE [id number] 02:47:00 Test Item Value Reference Range Interpretation Comments POC-GLUCOSE METER 171 mg/dL 70-110 H TESTED AT [place] [address] ([facility]) (test code = [place] 1538) [address] POCT-GLUCOSE [id number] 02:47:00 Test Item Value Reference Range Interpretation Comments POC-GLUCOSE METER 159 mg/dL 70-110 H TESTED AT [place] [address] ([facility]) (test code = [place] 1538) [address] [id number] 00:39:00 Test Item Value Reference Range Interpretation Comments MAGNESIUM (BEAKER) (test code = 1.8 mg/dL 1.6-2.6 627) PRN - repeat potassium levels every 1 hour until glucose level is less than 450 mg/[id number] 00:39:00 Test Item Value Reference Range Interpretation Comments POTASSIUM (BEAKER) (test code = 3.1 meq/L 3.5-5.1 L 379) PRN - repeat potassium levels every 1 hour until glucose level is less than 450 mg/dLPOCT-GLUCOSE [id number] 23:44:00 Test Item Value Reference Range Interpretation Comments POC-GLUCOSE METER 129 mg/dL 70-110 H TESTED AT [place] [address] ([facility]) (test code = [place] 1538) [address] POCT-GLUCOSE [id number] 23:44:00 Test Item Value Reference Range Interpretation Comments POC-GLUCOSE METER 130 mg/dL 70-110 H TESTED AT [place] [address] ([facility]) (test code = [place] 1538) [address] POCT-GLUCOSE [id number] 23:44:00 Test Item Value Reference Range Interpretation Comments POC-GLUCOSE METER 156 mg/dL 70-110 H TESTED AT [place] [address] ([facility]) (test code = [place] 1538) [address] POCT-GLUCOSE [id number] 22:17:00 Test Item Value Reference Range Interpretation Comments POC-GLUCOSE METER 173 mg/dL 70-110 H TESTED AT [place] [address] ([facility]) (test code = [place] [facility] 1538) [address] POCT-GLUCOSE [id number] 22:17:00 Test Item Value Reference Range Interpretation Comments POC-GLUCOSE METER 160 mg/dL 70-110 H TESTED AT [place] [address] ([facility]) (test code = [place] [facility] 1538) [address] POCT-GLUCOSE [id number] 18:53:00 Test Item Value Reference Range Interpretation Comments POC-GLUCOSE METER 147 mg/dL 70-110 H TESTED AT [place] [address] ([facility]) (test code = [place] [facility] 1538) [address] POCT-GLUCOSE [id number] 18:53:00 Test Item Value Reference Range Interpretation Comments POC-GLUCOSE METER 157 mg/dL 70-110 H TESTED AT [place] [address] ([facility]) (test code = [place] [facility] 1538) [address] [id number] 17:05:00 Test Item Value Reference Range Interpretation Comments AMMONIA ([facility]) 54 mol/L 18-72 Specimen sl ightly (test code = 348) hemolyzed VANCOMYCIN LEVEL, [id number] 16:53:00 Test Item Value Reference Range Interpretation Comments VANCOMYCIN TROUGH ([facility]) (test 10.8 ug/mL 10.0-20.0 code = 522) Please draw 30 minutes prior to vancomycin due time. Do not administer if vancomycin trough is >20 mcg/mL. Thank you!POCT-GLUCOSE [id number] 16:50:00 Test Item Value Reference Range Interpretation Comments POC-GLUCOSE METER 157 mg/dL 70-110 H TESTED AT [place] [address] ([facility]) (test code = [place] [facility] 1538) [address] [id number] 16:50:00 Test Item Value Reference Range Interpretation Comments MAGNESIUM ([facility]) (test code = 2.1 mg/dL 1.6-2.6 627) POCT-GLUCOSE [id number] 16:50:00 Test Item Value Reference Range Interpretation Comments POC-GLUCOSE METER 141 mg/dL 70-110 H TESTED AT [place] [address] ([facility]) (test code = [facility] [place] [facility] 1538) [address] POCT-GLUCOSE [id number] 16:50:00 Test Item Value Reference Range Interpretation Comments POC-GLUCOSE METER 149 mg/dL 70-[address] [facility] 6720 (BEAKER) (test code = [place] 1538) [address] POCT-GLUCOSE [id number] 16:50:00 Test Item Value Reference Range Interpretation Comments POC-GLUCOSE METER 123 mg/dL 70-[address] [facility] 67 (BEAKER) (test code = [place] 1538) [address] POCT-GLUCOSE [id number] 16:50:00 Test Item Value Reference Range Interpretation Comments POC-GLUCOSE METER 105 mg/dL 70-110 TESTED AT [place] [address] (BEAKER) (test code = [place] 1538) [address] [id number] 12:25:00 Test Item Value Reference Range Interpretation Comments PROCALCITONIN (BEAKER) (test code 2.33 ng/mL <0.05 H = 3036) SEPSIS RISK (ng/mL)Low: 0.05-0.50Intermediate: 0.51-2.00High: >=2.01URINALYSIS W/ REFLEX URINE [id number] 11:50:00 Test Item Value Reference Range Interpretation [...] 1521) SOURCE(BEAKER) (test code = 2795) TROPONIN [id number] 09:25:00 Test Item Value Reference Range Interpretation [...] completed or 30 min after intravenous potassium replacement.[id number] 09:24:00 Test Item Value Reference Range Interpretation Comments POTASSIUM (BEAKER) (test code = 4.3 meq/L 3.5-5.1 379) PRN - repeat glucose levels every 1 hour or as specified by insulin titration orders until glucose level is less than 450 mg/dLCheck Serum Potassium level 2 hours after oral potassium replacement completed or 30 min after intravenous potassium replacement.[id number] 08:59:00 Test Item Value Reference Range Interpretation Comments GLUCOSE RANDOM (BEAKER) (test code 110 mg/dL 70-105 H = 652) PRN - repeat glucose levels every 1 hour or as specified by insulin titration orders until glucose level is less than 450 mg/dLCheck Serum Potassium level 2 hours after oral potassium replacement completed or 30 min after intravenous potassium replacement.CALCIUM, [id number] 08:43:00 Test Item Value Reference Range Interpretation Comments CALCIUM IONIZED (BEAKER) (test 1.04 mmol/L 1.12-1.27 L code = 698) PH, BLOOD (BEAKER) (test code = 7.47 7150) Check serum Ionized Calcium level after 4 hours after IV Calcium replacement. RAD, CHEST, 1 VIEW, NON [id number] 07:25:00Reason for exam:->ptxShould this be performed at the bedside?->YesFINAL REPORT Chest one view compared to August 21, 2017 Discussion: Support tubes and right IJ line in place. Cardiac prominence is noted. Lungs clear. Drainage tubes visible. No effusion or pneumothorax. Signed: Vandana Todd Verified Date/Time: 08/22/2017 07:25:51 Reading Location: [facility] Radiology Reading Room POCT-GLUCOSE [id number] 06:35:00 Test Item Value Reference Range Interpretation Comments POC-GLUCOSE METER 116 mg/dL 70-[address] [facility] 6720 (BEAKER) (test code = [facility] 1538) [address] POCT-GLUCOSE [id number] 05:20:00 Test Item Value Reference Range Interpretation Comments POC-GLUCOSE METER 136 mg/dL 70-[address] [facility] 6720 (BEAKER) (test code = [facility] 1538) [address] CALCIUM, [id number] 04:22:00 Test Item Value Reference Range Interpretation Comments CALCIUM IONIZED (BEAKER) (test 1.05 mmol/L 1.12-1.27 L code = 698) PH, BLOOD (BEAKER) (test code = 7.47 1810) BLOOD GAS, [id number] 04:17:00 Test Item Value Reference Range Interpretation [...] code = 1819) 40.0 % OXYGEN SATURATION, [id number] 04:11:00 Test Item Value Reference Range Interpretation Comments O2 SATURATION (MEASURED) (BEAKER) 50.9 % (test code = 1455) BASIC METABOLIC [id number] 04:07:00 Test Item Value Reference Range Interpretation [...] S NOT APPLICABLE FOR DIALYSIS PATIEN TS. [id number] 04:06:00 Test Item Value Reference Range Interpretation Comments PHOSPHORUS (BEAKER) (test code = 3.8 mg/dL 2.3-4.7 604) LACTIC ACID, ARTERIAL, WHOLE [id number] 04:05:00 Test Item Value Reference Range Interpretation Comments LACTATE BLOOD ARTERIAL (2) 0.9 mmol/L 0.5-2.2 (BEAKER) (test code = 2874) Effective 06/11/2015: Units/Reference Range ChangeNew: 0.5-2.2 mmol/L Previous: 5-20 mg/[id number] 04:02:00 Test Item Value Reference Range Interpretation Comments MAGNESIUM (BEAKER) (test code = 2.1 mg/dL 1.6-2.6 627) CBC W/PLT COUNT & AUTO [id number] 03:52:00 Test Item Value Reference Range Interpretation [...] 417) IMMATURE GRANULOCYTES-RELATIVE 1 % 0-1 PERCENT ([facility]) (test code = 2801) POCT-GLUCOSE [id number] 03:45:00 Test Item Value Reference Range Interpretation Comments POC-GLUCOSE METER 148 mg/dL 70-110 H TESTED AT [place] [address] ([facility]) (test code = [place] 1538) [address] POCT-GLUCOSE [id number] 02:36:00 Test Item Value Reference Range Interpretation Comments POC-GLUCOSE METER 155 mg/dL 70-110 H TESTED AT [place] [address] ([facility]) (test code = [place] 1538) [address] POCT-GLUCOSE [id number] 01:16:00 Test Item Value Reference Range Interpretation Comments POC-GLUCOSE METER 136 mg/dL 70-110 H TESTED AT [place] [address] ([facility]) (test code = [place] 1538) [address] POCT-GLUCOSE [id number] 00:22:00 Test Item Value Reference Range Interpretation Comments POC-GLUCOSE METER 124 mg/dL 70-110 H TESTED AT [place] [address] ([facility]) (test code = [place] 1538) [address] [id number] 23:28:00 Test Item Value Reference Range Interpretation Comments MAGNESIUM ([facility]) (test code = 1.9 mg/dL 1.6-2.6 627) POCT-GLUCOSE [id number] 23:11:00 Test Item Value Reference Range Interpretation Comments POC-GLUCOSE METER 112 mg/dL 70-110 H TESTED AT [place] [address] ([facility]) (test code = [place] 1538) [address] POCT-GLUCOSE [id number] 22:02:00 Test Item Value Reference Range Interpretation Comments POC-GLUCOSE METER 132 mg/dL 70-110 H TESTED AT [place] [address] ([facility]) (test code = [place] 1538) [address] POCT-GLUCOSE [id number] 21:40:00 Test Item Value Reference Range Interpretation Comments POC-GLUCOSE METER 130 mg/dL 70-110 H TESTED AT [place] [address] ([facility]) (test code = [place] 1538) [address] [id number] 20:58:00 Test Item Value Reference Range Interpretation Comments POTASSIUM (BEAKER) (test code = 3.9 meq/L 3.5-5.1 379) PRN - repeat potassium levels every 1 hour until glucose level is less than 450 mg/dLPOCT-GLUCOSE [id number] 20:31:00 Test Item Value Reference Range Interpretation Comments POC-GLUCOSE METER 111 mg/dL 70-110 H TESTED AT [place] [address] ([facility]) (test code = [facility] 1538) [address] POCT-GLUCOSE [id number] 19:24:00 Test Item Value Reference Range Interpretation Comments POC-GLUCOSE METER 133 mg/dL 70-110 H TESTED AT [place] [address] ([facility]) (test code = [facility] 1538) [address] POCT-GLUCOSE [id number] 17:41:00 Test Item Value Reference Range Interpretation Comments POC-GLUCOSE METER 140 mg/dL 70-110 H TESTED AT [place] [address] ([facility]) (test code = [facility] 1538) [address] [id number] 16:40:00 Test Item Value Reference Range Interpretation Comments POTASSIUM (BEAKER) (test code = 3.9 meq/L 3.5-5.1 379) PRN - repeat glucose levels every 1 hour or as specified by insulin titration orders until glucose level is less than 450 mg/dLCheck Serum Potassium level 2 hours after oral potassium replacement completed or 30 min after intravenous potassium replacement.[id number] 16:40:00 Test Item Value Reference Range Interpretation Comments MAGNESIUM (BEAKER) (test code = 2.0 mg/dL 1.6-2.6 627) PRN - repeat glucose levels every 1 hour or as specified by insulin titration orders until glucose level is less than 450 mg/dLCheck Serum Potassium level 2 hours after oral potassium replacement completed or 30 min after intravenous potassium replacement.[id number] 16:40:00 Test Item Value Reference Range Interpretation Comments GLUCOSE RANDOM (BEAKER) (test code 131 mg/dL 70-105 H = 652) PRN - repeat glucose levels every 1 hour or as specified by insulin titration orders until glucose level is less than 450 mg/dLCheck Serum Potassium level 2 hours after oral potassium replacement completed or 30 min after intravenous potassium replacement.CALCIUM, [id number] 16:16:00 Test Item Value Reference Range Interpretation Comments CALCIUM IONIZED ([facility]) (test 1.06 mmol/L 1.12-1.27 L code = 698) PH, BLOOD ([facility]) (test code = 7.42 1810) Check serum Ionized Calcium level after 4 hours after IV Calcium replacement. POCT-GLUCOSE [id number] 16:13:00 Test Item Value Reference Range Interpretation Comments POC-GLUCOSE METER 131 mg/dL 70-110 H TESTED AT [place] [id number] ([facility]) (test code = [facility] 1538) [id number] POCT-GLUCOSE [id number] 16:13:00 Test Item Value Reference Range Interpretation Comments POC-GLUCOSE METER 133 mg/dL 70-110 H TESTED AT [place] [address] ([facility]) (test code = [facility] 1538) [address] POCT-GLUCOSE [id number] 16:13:00 Test Item Value Reference Range Interpretation Comments POC-GLUCOSE METER 89 mg/dL 70-110 TESTED AT [place] [address] ([facility]) (test code = [facility] [address] 1538) POCT-GLUCOSE [id number] 16:13:00 Test Item Value Reference Range Interpretation Comments POC-GLUCOSE METER 130 mg/dL 70-110 H TESTED AT [place] [address] ([facility]) (test code = [facility] 1538) [address] POCT-GLUCOSE [id number] 16:13:00 Test Item Value Reference Range Interpretation Comments POC-GLUCOSE METER 137 mg/dL 70-110 H TESTED AT [place] [address] ([facility]) (test code = [facility] 1538) [address] POCT-GLUCOSE [id number] 16:13:00 Test Item Value Reference Range Interpretation Comments POC-GLUCOSE METER 131 mg/dL 70-110 H TESTED AT [place] [address] ([facility]) (test code = [facility] 1538) [address] POCT-GLUCOSE [id number] 16:13:00 Test Item Value Reference Range Interpretation Comments POC-GLUCOSE METER 129 mg/dL 70-110 H TESTED AT [place] [address] ([facility]) (test code = [facility] 1538) [address] POCT-GLUCOSE [id number] 16:13:00 Test Item Value Reference Range Interpretation Comments POC-GLUCOSE METER 145 mg/dL 70-[address] [facility] 6720 ([place]) (test code = [place] 1538) [address] RAD, CHEST, 1 VIEW, NON [id number] 10:45:00Reason for exam:->NEW CENTRAL LINE INSERTION (R) [...] nonspecific patchy bibasilar airspace disease. Signed: Greta Armentaeport Verified Date/Time: 08/21/2017 10:45:33 Reading Location: [address] Consult Reading Room CBC W/PLT COUNT & AUTO [id number] 09:55:00 Test Item Value Reference Range Interpretation [...] PERCENT (BEAKER) (test code = 2801) POCT-GLUCOSE [id number] 08:19:00 Test Item Value Reference Range Interpretation Comments POC-GLUCOSE METER 117 mg/dL 70-[address] [facility] 67 ([facility]) (test code = [place] 1538) [address] POCT-GLUCOSE [id number] 08:19:00 Test Item Value Reference Range Interpretation Comments POC-GLUCOSE METER 141 mg/dL 70-110 H TESTED AT [place] [id number] ([facility]) (test code = [place] [facility] 1538) [address] RAD, CHEST, 1 VIEW, NON [id number] 07:34:00Reason for exam:->ETT, CHEST TUBES, PA CATHETERShould [...] MDReport Verified Date/Time: 08/21/2017 07:34:55 Reading Location: [address] Consult Reading Room VANCOMYCIN LEVEL, [id number] 05:27:00 Test Item Value Reference Range Interpretation Comments VANCOMYCIN RANDOM (BEAKER) (test 6.1 ug/mL code = 523) Reference Range: No NormalsPlease draw 30 minutes prior to vancomycin due time. Do not administer ifvancomycin trough is >20 mcg/mL. Thank you!BLOOD GAS, [id number] 05:23:00 Test Item Value Reference Range Interpretation [...] (BEAKER) (test code = 1819) 40.0 % [id number] 05:18:00 Test Item Value Reference Range Interpretation Comments PHOSPHORUS (BEAKER) (test code = 3.0 mg/dL 2.3-4.7 604) [id number] 05:18:00 Test Item Value Reference Range Interpretation Comments MAGNESIUM (BEAKER) (test code = 2.0 mg/dL 1.6-2.6 627) BASIC METABOLIC [id number] 05:18:00 Test Item Value Reference Range Interpretation [...] DIALYSIS PATIEN TS. LACTIC ACID, ARTERIAL, WHOLE [id number] 04:55:00 Test Item Value Reference Range Interpretation Comments LACTATE BLOOD ARTERIAL (2) 0.9 mmol/L 0.5-2.2 (BEAKER) (test code = 2874) Effective 06/11/2015: Units/Reference Range ChangeNew: 0.5-2.2 mmol/L Previous: 5-20 mg/dLOXYGEN SATURATION, [id number] 04:42:00 Test Item Value Reference Range Interpretation Comments O2 SATURATION (MEASURED) (BEAKER) 66.0 % (test code = 1455) POCT-GLUCOSE [id number] 03:44:00 Test Item Value Reference Range Interpretation Comments POC-GLUCOSE METER 161 mg/dL 70-[address] [facility] 6720 ([facility]) (test code = [place] 1538) [address] POCT-GLUCOSE [id number] 02:15:00 Test Item Value Reference Range Interpretation Comments POC-GLUCOSE METER 172 mg/dL 70-[address] [facility] 6720 ([facility]) (test code = [place] 1538) [address] POCT-GLUCOSE [id number] 02:15:00 Test Item Value Reference Range Interpretation Comments POC-GLUCOSE METER 180 mg/dL 70-110 H TESTED AT [place] [address] ([facility]) (test code = [place] [facility] 1538) [address] POCT-GLUCOSE [id number] 02:15:00 Test Item Value Reference Range Interpretation Comments POC-GLUCOSE METER 176 mg/dL 70-110 H TESTED AT [place] [address] ([facility]) (test code = [facility] [place] [facility] 1538) [address] POCT-GLUCOSE [id number] 02:15:00 Test Item Value Reference Range Interpretation Comments POC-GLUCOSE METER 203 mg/dL 70-110 H TESTED AT [place] [address] ([facility]) (test code = [facility] [place] [facility] 1538) [address] POCT-GLUCOSE [id number] 02:15:00 Test Item Value Reference Range Interpretation Comments POC-GLUCOSE METER 174 mg/dL 70-110 H TESTED AT [place] [address] ([facility]) (test code = [facility] [place] [facility] 1538) [address] CALCIUM, [id number] 00:34:00 Test Item Value Reference Range Interpretation Comments CALCIUM IONIZED ([facility]) (test 1.09 mmol/L 1.12-1.27 L code = 698) PH, BLOOD ([facility]) (test code = 7.40 1810) Check serum Ionized Calcium level after 4 hours after IV Calcium replacement. POCT-GLUCOSE [id number] 23:10:00 Test Item Value Reference Range Interpretation Comments POC-GLUCOSE METER 190 mg/dL 70-110 H TESTED AT [place] [address] ([facility]) (test code = [facility] [place] [facility] 1538) [address] POCT-GLUCOSE [id number] 23:10:00 Test Item Value Reference Range Interpretation Comments POC-GLUCOSE METER 106 mg/dL 70-110 TESTED AT [place] [address] ([facility]) (test code = [facility] [place] [facility] 1538) [address] POCT-GLUCOSE [id number] 23:10:00 Test Item Value Reference Range Interpretation Comments POC-GLUCOSE METER 155 mg/dL 70-110 H TESTED AT [place] [address] ([facility]) (test code = [facility] 1538) [address] [id number] 22:00:00 Test Item Value Reference Range Interpretation Comments MAGNESIUM (BEAKER) (test code = 2.0 mg/dL 1.6-2.6 627) BLOOD GAS, [id number] 21:45:00 Test Item Value Reference Range Interpretation [...] 1819) 40.0 % RAD, ABDOMEN/KUB, 1 VIEW [id number] 21:38:00Reason for exam:->corpak placementFINAL REPORT RAD, ABDOMEN/KUB, [...] MDReport Verified Date/Time: 08/20/2017 21:38:34 Reading Location: [address] Transitional Reading Room CALCIUM, [id number] 18:48:00 Test Item Value Reference Range Interpretation Comments CALCIUM IONIZED (BEAKER) (test 1.08 mmol/L 1.12-1.27 L code = 698) PH, BLOOD (BEAKER) (test code = 7.48 1810) BASIC METABOLIC [id number] 18:14:00 Test Item Value Reference Range Interpretation [...] DIALYSIS PATIEN TS. LACTIC ACID, VENOUS, WHOLE [id number] 18:07:00 Test Item Value Reference Range Interpretation Comments LACTATE BLOOD VENOUS (2) (BEAKER) 0.7 mmol/L 0.5-2.2 (test code = 2872) Effective 06/11/2015: Units/Reference Range ChangeNew: 0.5-2.2 mmol/L Previous: 5-20 mg/dLCBC W/PLT COUNT & AUTO [id number] 17:37:00 Test Item Value Reference Range Interpretation [...] 0-0 (test code = 413) BLOOD GAS, [id number] 17:06:00 Test Item Value Reference Range Interpretation [...] (BEAKER) (test code = 1819) 40.0 % [id number] 15:08:00 Test Item Value Reference Range Interpretation Comments POTASSIUM (BEAKER) (test code = 4.0 meq/L 3.5-5.1 379) Check Serum Potassium level 2 hours after oral potassium replacement completed or 30 min after intravenous potassium replacement.[id number] 15:08:00 Test Item Value Reference Range Interpretation Comments MAGNESIUM (BEAKER) (test code = 1.9 mg/dL 1.6-2.6 627) Check Serum Potassium level 2 hours after oral potassium replacement completed or 30 min after intravenous potassium replacement.CALCIUM, [id number] 14:56:00 Test Item Value Reference Range Interpretation Comments CALCIUM IONIZED (BEAKER) (test 1.07 mmol/L 1.12-1.27 L code = 698) PH, BLOOD (BEAKER) (test code = 7.43 1810) Check serum Ionized Calcium level after 4 hours after IV Calcium replacement. RAD, ABDOMEN/KUB, 1 VIEW [id number] 12:00:00Reason for exam:->corpak placementShould this be performed [...] some left basilar airspace disease. Signed: Greta Armentaeport Verified Date/Time: 08/20/2017 12:00:17 Reading Location: [address] Consult Reading Room POCT-GLUCOSE [id number] 11:57:00 Test Item Value Reference Range Interpretation Comments POC-GLUCOSE METER 186 mg/dL 70-[address] [facility] 6720 (BEAKER) (test code = [place] [facility] 1538) [address] OXYGEN SATURATION, [id number] 11:00:00 Test Item Value Reference Range Interpretation Comments O2 SATURATION (MEASURED) (BEAKER) 67.6 % (test code = 1455) CBC W/PLT COUNT & AUTO [id number] 10:47:00 Test Item Value Reference Range Interpretation [...] User comments: Slide comments:LACTIC ACID, ARTERIAL, WHOLE [id number] 09:18:00 Test Item Value Reference Range Interpretation Comments LACTATE BLOOD ARTERIAL (2) 1.0 mmol/L 0.5-2.2 (BEAKER) (test code = 2874) Effective 06/11/2015: Units/Reference Range ChangeNew: 0.5-2.2 mmol/L Previous: 5-20 mg/dLPOCT-GLUCOSE [id number] 09:15:00 Test Item Value Reference Range Interpretation Comments POC-GLUCOSE METER 220 mg/dL 70-[address] [facility] 6720 (BEAKER) (test code = [place] 1538) [address] POCT-GLUCOSE [id number] 09:15:00 Test Item Value Reference Range Interpretation Comments POC-GLUCOSE METER 203 mg/dL 70-[address] [facility] 6720 (BEAKER) (test code = [place] 1538) [address] POCT-GLUCOSE [id number] 09:15:00 Test Item Value Reference Range Interpretation Comments POC-GLUCOSE METER 35 mg/dL 70-[address] [facility] 6720 (BEAKER) (test code = [place] [address] 1538) POCT-GLUCOSE [id number] 09:15:00 Test Item Value Reference Range Interpretation Comments POC-GLUCOSE METER 110 mg/dL 70-[address] [facility] 6720 (BEAKER) (test code = [place] 1538) [address] POCT-GLUCOSE [id number] 09:15:00 Test Item Value Reference Range Interpretation Comments POC-GLUCOSE METER 118 mg/dL 70-[address] [facility] 6720 (BELEM) (test code = [place] 1538) [address] POCT-GLUCOSE [id number] 09:15:00 Test Item Value Reference Range Interpretation Comments POC-GLUCOSE METER 126 mg/dL 70-[address] [facility] 6720 (BELEM) (test code = [place] 1538) [address] RAD, CHEST, 1 VIEW, NON [id number] 07:52:00Reason for exam:->ETT, CHEST TUBES, PA CATHETERShould this be performed at the bedside?->YesFINAL REPORT Chest one view compared to August 19 Discussion: Interstitial congestion is similar. ET tube and left IJ line again noted. Left costophrenic angle excluded from the image. No gross effusion or pneumothorax. No visible pulmonary artery access. Signed: Vandana Todd Verified Date/Time: 08/20/2017 07:52:29 Reading Location: [address] CT, BRAIN, WITHOUT [id number] 05:11:00FINAL REPORT CT, BRAIN, WITHOUT CONTRAST INDICATION: [...] IMPRESSION: No acute intracranial abnormality. Signed: Sandip Foxort Verified Date/Time: 08/20/2017 05:11:47 Reading Location: [address] Reading Room OXYGEN SATURATION, [id number] 05:10:00 Test Item Value Reference Range Interpretation Comments O2 SATURATION (MEASURED) (BEAKER) 65.8 % (test code = 1455) BLOOD GAS, [id number] 04:57:00 Test Item Value Reference Range Interpretation [...] (BEAKER) (test code = 1819) 40.0 % [id number] 04:49:00 Test Item Value Reference Range Interpretation Comments PHOSPHORUS (BEAKER) (test code = 3.9 mg/dL 2.3-4.7 604) [id number] 04:49:00 Test Item Value Reference Range Interpretation Comments MAGNESIUM (BEAKER) (test code = 2.1 mg/dL 1.6-2.6 627) BASIC METABOLIC [id number] 04:49:00 Test Item Value Reference Range Interpretation [...] APPLICABLE FOR DIALYSIS PATIEN TS. BLOOD GAS, [id number] 01:31:00 Test Item Value Reference Range Interpretation [...] 1819) 40.0 % LACTIC ACID, ARTERIAL, WHOLE [id number] 00:02:00 Test Item Value Reference Range Interpretation Comments LACTATE BLOOD ARTERIAL (2) 1.2 mmol/L 0.5-2.2 (BEAKER) (test code = 2874) Effective 06/11/2015: Units/Reference Range ChangeNew: 0.5-2.2 mmol/L Previous: 5-20 mg/[id number] 00:01:00 Test Item Value Reference Range Interpretation Comments MAGNESIUM (BEAKER) (test code = 1.7 mg/dL 1.6-2.6 627) SODIUM NA-STAT [id number] 23:24:00 Test Item Value Reference Range Interpretation Comments SODIUM (BEAKER) (test code = 381) 141 meq/L 135-148 POTASSIUM-STAT [id number] 23:24:00 Test Item Value Reference Range Interpretation Comments POTASSIUM (BEAKER) (test code = 5.3 meq/L 3.6-5.5 379) CALCIUM, [id number] 23:24:00 Test Item Value Reference Range Interpretation Comments CALCIUM IONIZED (BEAKER) (test 1.20 mmol/L 1.12-1.27 code = 698) PH, BLOOD (BEAKER) (test code = 7.39 1810) Check serum Ionized Calcium level after 4 hours after IV Calcium replacement. BLOOD GAS, [id number] 23:24:00 Test Item Value Reference Range Interpretation [...] (test code = 1819) 60.0 % GLUCOSE-STAT [id number] 23:24:00 Test Item Value Reference Range Interpretation Comments GLUCOSE RANDOM (BEAKER) (test code 204 mg/dL 70-110 H = 652) HGB/HCT (H&H) - STAT [id number] 23:24:00 Test Item Value Reference Range Interpretation Comments HEMOGLOBIN (BEAKER) (test code = 10.4 g/dL 13.0-16.8 L 410) HEMATOCRIT (BEAKER) (test code = 31.0 % 40.0-50.0 L 411) OXYGEN SATURATION, [id number] 23:23:00 Test Item Value Reference Range Interpretation Comments O2 SATURATION (MEASURED) (BEAKER) 68.4 % (test code = 1455) LACTIC ACID, ARTERIAL, WHOLE [id number] 22:05:00 Test Item Value Reference Range Interpretation Comments LACTATE BLOOD ARTERIAL (2) 1.4 mmol/L 0.5-2.2 (BEAKER) (test code = 2874) Effective 06/11/2015: Units/Reference Range ChangeNew: 0.5-2.2 mmol/L Previous: 5-20 mg/[id number] 22:03:00 Test Item Value Reference Range Interpretation Comments MAGNESIUM (BEAKER) (test code = 1.8 mg/dL 1.6-2.6 627) CALCIUM, [id number] 21:46:00 Test Item Value Reference Range Interpretation Comments CALCIUM IONIZED (BEAKER) (test 1.44 mmol/L 1.12-1.27 H code = 698) PH, BLOOD (BEAKER) (test code = 7.37 1810) BLOOD GAS, [id number] 21:44:00 Test Item Value Reference Range Interpretation [...] (test code = 1819) 50.0 % GLUCOSE-STAT [id number] 21:44:00 Test Item Value Reference Range Interpretation Comments GLUCOSE RANDOM (BEAKER) (test code 197 mg/dL 70-110 H = 652) HGB/HCT (H&H) - STAT [id number] 21:44:00 Test Item Value Reference Range Interpretation Comments HEMOGLOBIN (BEAKER) (test code = 11.3 g/dL 13.0-16.8 L 410) HEMATOCRIT (BEAKER) (test code = 33.0 % 40.0-50.0 L 411) SODIUM NA-STAT [id number] 21:43:00 Test Item Value Reference Range Interpretation Comments SODIUM (BEAKER) (test code = 381) 141 meq/L 135-148 POTASSIUM-STAT [id number] 21:43:00 Test Item Value Reference Range Interpretation Comments POTASSIUM (BEAKER) (test code = 4.6 meq/L 3.6-5.5 379) RAD, CHEST, 1 VIEW, NON [id number] 20:58:00Reason for exam:- >intubationShould this be performed at the bedside?->YesFINAL REPORT Chest, portable AP view History: Intubation Comparison: Earlier the same day at 9:11 AM IMPRESSION: The tip of the endotracheal tube is approximately 4.7 cm above the waqas. The heart is stably enlarged. Patient status post median sternotomy. There is been intervalremoval of the Warren-Marya catheter. Left basilar chest tubes in place. There is a trace left apical pn eumothorax. Interval placement of a left IJ central venous catheter with the distal catheter tip at the innominate SVC junction. Bibasilar atelectasis persists. Signed: Emanuel Boyd MDReport Verified Date/Time: 08/19/2017 20:58:35 Reading Location: [address] Consult Reading Room OXYGEN SATURATION, [id number] 19:16:00 Test Item Value Reference Range Interpretation Comments O2 SATURATION (MEASURED) (BEAKER) 67.8 % (test code = 1455) BLOOD GAS, [id number] 19:07:00 Test Item Value Reference Range Interpretation [...] (test code = 1819) 100.0 % GLUCOSE-STAT [id number] 19:07:00 Test Item Value Reference Range Interpretation Comments GLUCOSE RANDOM (BEAKER) (test code 144 mg/dL 70-110 H = 652) POCT-GLUCOSE [id number] 17:11:00 Test Item Value Reference Range Interpretation Comments POC-GLUCOSE METER 108 mg/dL 70-110 TESTED AT [facility] 6720 (BEAKER) (test code = [place] 1538) [address] BLOOD GAS, [id number] 16:53:00 Test Item Value Reference Range Interpretation [...] code = 1819) 100.0 % BLOOD GAS, [id number] 14:09:00 Test Item Value Reference Range Interpretation [...] (test code = 1819) 44.0 % TROPONIN [id number] 12:55:00 Test Item Value Reference Range Interpretation [...] acute neurological disease, and persistent tachyarrhythmia.COMPREHENSIVE METABOLIC [id number] 12:20:00 Test Item Value Reference Range Interpretation [...] S NOT APPLICABLE FOR DIALYSIS PATIEN TS. [id number] 12:19:00 Test Item Value Reference Range Interpretation Comments MAGNESIUM (BEAKER) (test code = 1.9 mg/dL 1.6-2.6 627) BASIC METABOLIC [id number] 12:19:00 Test Item Value Reference Range Interpretation [...] DIALYSIS PATIEN TS. LACTIC ACID, ARTERIAL, WHOLE [id number] 12:16:00 Test Item Value Reference Range Interpretation Comments LACTATE BLOOD ARTERIAL (2) 3.1 mmol/L 0.5-2.2 H (BEAKER) (test code = 2874) Effective 06/11/2015: Units/Reference Range ChangeNew: 0.5-2.2 mmol/L Previous: 5-20 mg/dLCALCIUM, [id number] 12:04:00 Test Item Value Reference Range Interpretation [...] = 413) RAD, CHEST, 1 VIEW, NON [id number] 09:55:00Reason for exam:->ETT, CHEST TUBES, PA CATHETERShould this be performed at the bedside?->YesFINAL REPORT Two frontal chest images compared to August 19, 2017 Discussion: Support tubes and right IJ pulmonary catheter in place. Chest tubes are noted. Trace left apical pneumothorax. Minimal left base atelectasis. Signed: Vandana Todd Verified Date/Time: 08/19/201709:55:44 Reading Location: [facility] Reading Room LACTIC ACID, ARTERIAL, WHOLE BLOOD 2017-08-19 07:50:00 Test Item Value Reference Range Interpretation Comments LACTATE BLOOD ARTERIAL (2) 3.2 mmol/L 0.5-2.2 H (BEAKER) (test code = 2874) Effective 06/11/2015: Units/Reference Range ChangeNew: 0.5-2.2 mmol/L Previous: 5-20 mg/dLBLOOD GAS, [id number] 07:31:00 Test Item Value Reference Range Interpretation [...] 50.0 % CREATINE KINASE (CK), TOTAL AND [id number] 07:08:00 Test Item Value Reference Range Interpretation Comments CREATINE KINASE TOTAL (BEAKER) 282 U/L 29-200 H (test code = 380) CREATINE KINASE-MB (BEAKER) (test 11.5 ng/mL 0.0-6.6 H code = 750) CREATINE KINASE-MB INDEX (BEAKER) 4.1 % (test code = 395) CK-MB Reference Range:<6.7 Normal6.7-10.0 Borderline>10.0 AbnormalTROPONIN [id number] 07:04:00 Test Item Value Reference Range Interpretation [...] acidosis, acute neurological disease, and persistent tachyarrhythmia.POCT-GLUCOSE [id number] 06:14:00 Test Item Value Reference Range Interpretation Comments POC-GLUCOSE METER 166 mg/dL 70-[address] [facility] 6720 ([facility]) (test code = [facility] [place] 1538) [address] POCT-GLUCOSE [id number] 06:14:00 Test Item Value Reference Range Interpretation Comments POC-GLUCOSE METER 196 mg/dL 70-[address] [facility] 6720 ([facility]) (test code = [facility] [place] 1538) [address] POCT-GLUCOSE [id number] 06:14:00 Test Item Value Reference Range Interpretation Comments POC-GLUCOSE METER 209 mg/dL 70-110 H TESTED AT [place] [address] (BEAKER) (test code = [place] 1538) [address] POCT-GLUCOSE [id number] 06:14:00 Test Item Value Reference Range Interpretation Comments POC-GLUCOSE METER 259 mg/dL 70-110 H TESTED AT [place] [address] (BEAKER) (test code = [place] 1538) [address] POCT-GLUCOSE [id number] 06:14:00 Test Item Value Reference Range Interpretation Comments POC-GLUCOSE METER 304 mg/dL 70-110 H TESTED AT [place] [address] (BEAKER) (test code = [place] [facility] 1538) [address] POCT-GLUCOSE [id number] 06:14:00 Test Item Value Reference Range Interpretation Comments POC-GLUCOSE METER 343 mg/dL 70-110 H TESTED AT [place] [address] (BEAKER) (test code = [place] [facility] 1538) [address] OXYGEN SATURATION, [id number] 05:39:00 Test Item Value Reference Range Interpretation Comments O2 SATURATION (MEASURED) (BEAKER) 73.8 % (test code = 1455) BLOOD GAS, [id number] 05:03:00 Test Item Value Reference Range Interpretation [...] (test code = 1819) 50.0 % GLUCOSE-STAT [id number] 05:03:00 Test Item Value Reference Range Interpretation Comments GLUCOSE RANDOM (BEAKER) (test code 175 mg/dL 70-110 H = 652) HGB/HCT (H&H) - STAT [id number] 05:03:00 Test Item Value Reference Range Interpretation Comments HEMOGLOBIN (BEAKER) (test code = 11.9 g/dL 13.0-16.8 L 410) HEMATOCRIT (BEAKER) (test code = 35.0 % 40.0-50.0 L 411) CALCIUM, [id number] 05:02:00 Test Item Value Reference Range Interpretation Comments CALCIUM IONIZED (BEAKER) (test 1.21 mmol/L 1.12-1.27 code = 698) PH, BLOOD (BEAKER) (test code = 7.31 1810) Check serum Ionized Calcium level after 4 hours after IV Calcium replacement. SODIUM NA-STAT [id number] 05:01:00 Test Item Value Reference Range Interpretation Comments SODIUM (BEAKER) (test code = 381) 142 meq/L 135-148 POTASSIUM-STAT [id number] 05:01:00 Test Item Value Reference Range Interpretation Comments POTASSIUM (BEAKER) (test code = 3.6 meq/L 3.6-5.5 379) [id number] 04:59:00 Test Item Value Reference Range Interpretation Comments PHOSPHORUS (BEAKER) (test code = 2.2 mg/dL 2.3-4.7 L 604) [id number] 04:59:00 Test Item Value Reference Range Interpretation Comments MAGNESIUM (BEAKER) (test code = 2.0 mg/dL 1.6-2.6 627) BASIC METABOLIC [id number] 04:59:00 Test Item Value Reference Range Interpretation [...] DIALYSIS PATIEN TS. LACTIC ACID, ARTERIAL, WHOLE [id number] 04:53:00 Test Item Value Reference Range Interpretation Comments LACTATE BLOOD ARTERIAL (2) 7.3 mmol/L 0.5-2.2 H (BEAKER) (test code = 2874) Effective 06/11/2015: Units/Reference Range ChangeNew: 0.5-2.2 mmol/L Previous: 5-20 mg/dLCBC W/PLT COUNT & AUTO [id number] 04:52:00 Test Item Value Reference Range Interpretation [...] 0-1 PERCENT (BEAKER) (test code = 2801) [id number] 04:50:00 Test Item Value Reference Range Interpretation Comments PARTIAL THROMBOPLASTIN TIME 35.7 seconds 22.5-36.0 (BEAKER) (test code = 760) PROTHROMBIN [id number] 04:49:00 Test Item Value Reference Range Interpretation [...] ChangeNew: 0.5-2.2 mmol/L Previous: 5-20 mg/dLBLOOD GAS, [id number] 03:33:00 Test Item Value Reference Range Interpretation [...] (test code = 1819) 50.0 % CALCIUM, [id number] 03:32:00 Test Item Value Reference Range Interpretation Comments CALCIUM IONIZED (BEAKER) (test 1.17 mmol/L 1.12-1.27 code = 698) PH, BLOOD (BEAKER) (test code = 7.37 1810) LACTIC ACID, ARTERIAL, WHOLE [id number] 01:43:00 Test Item Value Reference Range Interpretation Comments LACTATE BLOOD ARTERIAL (2) 9.2 mmol/L 0.5-2.2 H (BEAKER) (test code = 2874) Effective 06/11/2015: Units/Reference Range ChangeNew: 0.5-2.2 mmol/L Previous: 5-20 mg/[id number] 01:41:00 Test Item Value Reference Range Interpretation Comments MAGNESIUM (BEAKER) (test code = 2.3 mg/dL 1.6-2.6 627) BLOOD GAS, [id number] 01:31:00 Test Item Value Reference Range Interpretation [...] (test code = 1819) 50.0 % POTASSIUM-STAT [id number] 01:31:00 Test Item Value Reference Range Interpretation Comments POTASSIUM (BEAKER) (test code = 3.3 meq/L 3.6-5.5 L 379) GLUCOSE-STAT [id number] 01:31:00 Test Item Value Reference Range Interpretation Comments GLUCOSE RANDOM (BEAKER) (test code 236 mg/dL 70-110 H = 652) HGB/HCT (H&H) - STAT [id number] 01:31:00 Test Item Value Reference Range Interpretation Comments HEMOGLOBIN (BEAKER) (test code = 11.1 g/dL 13.0-16.8 L 410) HEMATOCRIT (BEAKER) (test code = 33.0 % 40.0-50.0 L 411) OXYGEN SATURATION, [id number] 01:28:00 Test Item Value Reference Range Interpretation Comments O2 SATURATION (MEASURED) (BEAKER) 76.9 % (test code = 1455) SODIUM NA-STAT [id number] 01:28:00 Test Item Value Reference Range Interpretation Comments SODIUM (BEAKER) (test code = 381) 144 meq/L 135-148 RAD, CHEST, 1 VIEW, NON [id number] 00:23:00Reason for exam:->s/p PA catheter placementFINAL REPORT RAD, CHEST, 1 VIEW, NON DEPT INDICATION: s/p PA catheter placement COMPARISON: Prior day's exam FINDINGS: Portable frontal view of the chest. IMPRESSION: Support Lines: Interval placement of a right IJ Warren-Marya catheter with tip overlying the main pulmonary [...] Vasquez Verified Date/Time: 08/19/2017 00:23:43 Reading Location: [address] Reading Room LACTIC ACID, ARTERIAL, WHOLE [id number] 23:40:00 Test Item Value Reference Range Interpretation Comments LACTATE BLOOD ARTERIAL (2) 8.7 mmol/L 0.5-2.2 H (BEAKER) (test code = 2874) Effective 06/11/2015: Units/Reference Range ChangeNew: 0.5-2.2 mmol/L Previous: 5-20 mg/dLBLOOD GAS, [id number] 23:20:00 Test Item Value Reference Range Interpretation [...] (test code = 1819) 60.0 % POTASSIUM-STAT [id number] 23:20:00 Test Item Value Reference Range Interpretation Comments POTASSIUM (BEAKER) (test code = 3.2 meq/L 3.6-5.5 L 379) GLUCOSE-STAT [id number] 23:20:00 Test Item Value Reference Range Interpretation Comments GLUCOSE RANDOM (BEAKER) (test code 282 mg/dL 70-110 H = 652) HGB/HCT (H&H) - STAT [id number] 23:20:00 Test Item Value Reference Range Interpretation Comments HEMOGLOBIN (BEAKER) (test code = 10.7 g/dL 13.0-16.8 L 410) HEMATOCRIT (BEAKER) (test code = 31.0 % 40.0-50.0 L 411) CALCIUM, [id number] 23:20:00 Test Item Value Reference Range Interpretation Comments CALCIUM IONIZED (BEAKER) (test 1.10 mmol/L 1.12-1.27 L code = 698) PH, BLOOD (BEAKER) (test code = 7.36 1810) Check serum Ionized Calcium level after 4 hours after IV Calcium replacement. SODIUM NA-STAT [id number] 23:19:00 Test Item Value Reference Range Interpretation Comments SODIUM (BEAKER) (test code = 381) 144 meq/L 135-148 OXYGEN SATURATION, [id number] 23:19:00 Test Item Value Reference Range Interpretation Comments O2 SATURATION (MEASURED) (BEAKER) 79.6 % (test code = 1455) BLOOD GAS, [id number] 22:12:00 Test Item Value Reference Range Interpretation [...] 60.0 % RAD, CHEST, 1 VIEW, NON [id number] 20:42:00Reason for exam:->s/p ACBFINAL REPORT Chest, 1 [...] Vasquez Verified Date/Time: 08/18/2017 20:42:09 Reading Location: [address] Reading Room BLOOD GAS, ARTERIAL 2017-08-18 [...] 37.0 C (test code = 1818) GLUCOSE-STAT [id number] 20:27:00 Test Item Value Reference Range Interpretation Comments GLUCOSE RANDOM (BEAKER) (test code 319 mg/dL 70-110 H = 652) HGB/HCT (H&H) - STAT [id number] 20:27:00 Test Item Value Reference Range Interpretation Comments HEMOGLOBIN (BEAKER) (test code = 12.2 g/dL 13.0-16.8 L 410) HEMATOCRIT (BEAKER) (test code = 36.0 % 40.0-50.0 L 411) CALCIUM, [id number] 20:26:00 Test Item Value Reference Range Interpretation Comments CALCIUM IONIZED (BEAKER) (test 1.23 mmol/L 1.12-1.27 code = 698) PH, BLOOD (BEAKER) (test code = 7.24 1810) SODIUM NA-STAT [id number] 20:26:00 Test Item Value Reference Range Interpretation Comments SODIUM (BEAKER) (test code = 381) 142 meq/L 135-148 POTASSIUM-STAT [id number] 20:26:00 Test Item Value Reference Range Interpretation Comments POTASSIUM (BEAKER) (test code = 3.6 meq/L 3.6-5.5 379) CBC W/PLT COUNT & AUTO [id number] 20:13:00 Test Item Value Reference Range Interpretation [...] = 3438) Received comment: User comments: Slide comments:[id number] 20:06:00 Test Item Value Reference Range Interpretation Comments MAGNESIUM (BEAKER) (test code = 2.4 mg/dL 1.6-2.6 627) BASIC METABOLIC [id number] 20:06:00 Test Item Value Reference Range Interpretation [...] DIALYSIS PATIEN TS. LACTIC ACID, ARTERIAL, WHOLE [id number] 20:02:00 Test Item Value Reference Range Interpretation Comments LACTATE BLOOD ARTERIAL (2) 4.9 mmol/L 0.5-2.2 H (BEAKER) (test code = 2874) Effective 06/11/2015: Units/Reference Range ChangeNew: 0.5-2.2 mmol/L Previous: 5-20 mg/dLPROTHROMBIN [id number] 19:51:00 Test Item Value Reference Range Interpretation Comments PROTIME (BEAKER) (test code = 16.4 seconds 11.7-14.7 H 759) INR (BEAKER) (test code = 370) 1.3 <=5.9 RECOMMENDED COUMADIN/WARFARIN INR THERAPY RANGESSTANDARD DOSE: 2.0 - 3.0 Includes: PROPHYLAXIS forvenous thrombosis, systemic embolization; TREATMENT for venous thrombosis and/or pulmonary embolus.HIGH RISK: Target INR is 2.5-3.5 for patients with mechanical heart valves.[id number] 19:51:00 Test Item Value Reference Range Interpretation Comments FIBRINOGEN LEVEL (BEAKER) (test 331 mg/dl 225-434 code = 658) [id number] 19:51:00 Test Item Value Reference Range Interpretation Comments PARTIAL THROMBOPLASTIN TIME 31.1 seconds 22.5-36.0 (BEAKER) (test code = 760) OXYGEN SATURATION, [id number] 19:44:00 Test Item Value Reference Range Interpretation Comments O2 SATURATION (MEASURED) (BEAKER) 76.2 % (test code = 1455) BLOOD GAS, [id number] 19:43:00 Test Item Value Reference Range Interpretation [...] 36.4 C (test code = 1818) FIO2 ([facility]) (test code = 1819) 60.0 % [id number] 19:07:00 Test Item Value Reference Range Interpretation Comments ACTIVATED CLOTTING TIME 120 sec TEST ED AT [place] [address] ([facility]) (test code = [place] [address]) [address] [id number] 19:07:00 Test Item Value Reference Range Interpretation Comments ACTIVATED CLOTTING TIME 439 sec TEST ED AT [place] [address] ([facility]) (test code = [place] [address]) [address] [id number] 19:07:00 Test Item Value Reference Range Interpretation Comments ACTIVATED CLOTTING TIME 433 sec TEST ED AT [place] [address] ([facility]) (test code = [place] [address]) [address] [id number] 19:07:00 Test Item Value Reference Range Interpretation Comments ACTIVATED CLOTTING TIME 378 sec TEST ED AT [place] [address] ([facility]) (test code = [place] [address]) [address] [id number] 19:07:00 Test Item Value Reference Range Interpretation Comments ACTIVATED CLOTTING TIME 422 sec TEST ED AT [place] [address] ([facility]) (test code = [place] [address]) [address] THROMBOELASTOGRAPH (TEG)2017-08-18 18:59:00 Test Item Value Reference [...] 55.0-65.0 H (test code = 1413) PROTHROMBIN [id number] 18:36:00 Test Item Value Reference Range Interpretation Comments PROTIME (BEAKER) (test code = 18.2 seconds 11.7-14.7 H 759) INR (BEAKER) (test code = 370) 1.5 <=5.9 RECOMMENDED COUMADIN/WARFARIN INR THERAPY RANGESSTANDARD DOSE: 2.0 - 3.0 Includes: PROPHYLAXIS forvenous thrombosis, systemic embolization; TREATMENT for venous thrombosis and/or pulmonary embolus.HIGH RISK: Target INR is 2.5-3.5 for patients with mechanical heart valves.[id number] 18:36:00 Test Item Value Reference Range Interpretation Comments FIBRINOGEN LEVEL (BEAKER) (test 276 mg/dl 225-434 code = 658) [id number] 18:36:00 Test Item Value Reference Range Interpretation Comments PARTIAL THROMBOPLASTIN TIME 32.8 seconds 22.5-36.0 (BEAKER) (test code = 760) PLATELET [id number] 18:29:00 Test Item Value Reference Range Interpretation Comments PLATELET COUNT (BEAKER) (test 178 K/CU MM 150-450 code = 756) BLOOD GAS, [id number] 18:14:00 Test Item Value Reference Range Interpretation [...] (test code = 1819) 100.0 % GLUCOSE-STAT [id number] 18:14:00 Test Item Value Reference Range Interpretation Comments GLUCOSE RANDOM (BEAKER) (test code 330 mg/dL 70-110 H = 652) HGB/HCT (H&H) - STAT [id number] 18:14:00 Test Item Value Reference Range Interpretation Comments HEMOGLOBIN (BEAKER) (test code = 11.1 g/dL 13.0-16.8 L 410) HEMATOCRIT (BEAKER) (test code = 33.0 % 40.0-50.0 L 411) SODIUM NA-STAT [id number] 18:12:00 Test Item Value Reference Range Interpretation Comments SODIUM (BEAKER) (test code = 381) 138 meq/L 135-148 POTASSIUM-STAT [id number] 18:12:00 Test Item Value Reference Range Interpretation Comments POTASSIUM (BEAKER) (test code = 3.7 meq/L 3.6-5.5 379) CALCIUM, [id number] 18:12:00 Test Item Value Reference Range Interpretation Comments CALCIUM IONIZED (BEAKER) (test 1.18 mmol/L 1.12-1.27 code = 698) PH, BLOOD (BEAKER) (test code = 7.24 1810) BLOOD GAS, [id number] 17:05:00 Test Item Value Reference Range Interpretation [...] (test code = 1819) 70.0 % GLUCOSE-STAT [id number] 17:05:00 Test Item Value Reference Range Interpretation Comments GLUCOSE RANDOM (BEAKER) (test code 320 mg/dL 70-110 H = 652) HGB/HCT (H&H) - STAT [id number] 17:05:00 Test Item Value Reference Range Interpretation Comments HEMOGLOBIN (BEAKER) (test code = 10.8 g/dL 13.0-16.8 L 410) HEMATOCRIT (BEAKER) (test code = 32.0 % 40.0-50.0 L 411) SODIUM NA-STAT [id number] 17:04:00 Test Item Value Reference Range Interpretation Comments SODIUM (BEAKER) (test code = 381) 135 meq/L 135-148 POTASSIUM-STAT [id number] 17:04:00 Test Item Value Reference Range Interpretation Comments POTASSIUM (BEAKER) (test code = 5.4 meq/L 3.6-5.5 379) BLOOD GAS, [id number] 16:34:00 Test Item Value Reference Range Interpretation [...] code = 1819) 60.0 % SODIUM NA-STAT [id number] 16:34:00 Test Item Value Reference Range Interpretation Comments SODIUM (BEAKER) (test code = 381) 134 meq/L 135-148 L POTASSIUM-STAT [id number] 16:34:00 Test Item Value Reference Range Interpretation Comments POTASSIUM (BEAKER) (test code = 5.7 meq/L 3.6-5.5 H 379) GLUCOSE-STAT [id number] 16:34:00 Test Item Value Reference Range Interpretation Comments GLUCOSE RANDOM (BEAKER) (test code 266 mg/dL 70-110 H = 652) HGB/HCT (H&H) - STAT [id number] 16:34:00 Test Item Value Reference Range Interpretation Comments HEMOGLOBIN (BEAKER) (test code = 11.5 g/dL 13.0-16.8 L 410) HEMATOCRIT (BEAKER) (test code = 34.0 % 40.0-50.0 L 411) POTASSIUM-STAT [id number] 16:04:00 Test Item Value Reference Range Interpretation Comments POTASSIUM (BEAKER) (test code = 4.4 meq/L 3.6-5.5 379) BLOOD GAS, [id number] 16:04:00 Test Item Value Reference Range Interpretation [...] code = 1819) 60.0 % SODIUM NA-STAT [id number] 16:04:00 Test Item Value Reference Range Interpretation Comments SODIUM (BEAKER) (test code = 381) 134 meq/L 135-148 L GLUCOSE-STAT [id number] 16:04:00 Test Item Value Reference Range Interpretation Comments GLUCOSE RANDOM (BEAKER) (test code 275 mg/dL 70-110 H = 652) HGB/HCT (H&H) - STAT [id number] 16:04:00 Test Item Value Reference Range Interpretation Comments HEMOGLOBIN (BEAKER) (test code = 11.5 g/dL 13.0-16.8 L 410) HEMATOCRIT (BEAKER) (test code = 34.0 % 40.0-50.0 L 411) BLOOD GAS, [id number] 15:18:00 Test Item Value Reference Range Interpretation [...] (test code = 1819) 100.0 % GLUCOSE-STAT [id number] 15:18:00 Test Item Value Reference Range Interpretation Comments GLUCOSE RANDOM (BEAKER) (test code 200 mg/dL 70-110 H = 652) SODIUM NA-STAT [id number] 15:17:00 Test Item Value Reference Range Interpretation Comments SODIUM (BEAKER) (test code = 381) 141 meq/L 135-148 POTASSIUM-STAT [id number] 15:17:00 Test Item Value Reference Range Interpretation Comments POTASSIUM (BEAKER) (test code = 4.6 meq/L 3.6-5.5 379) HGB/HCT (H&H) - STAT [id number] 15:17:00 Test Item Value Reference Range Interpretation Comments HEMOGLOBIN (BEAKER) (test code = 16.6 g/dL 13.0-16.8 410) HEMATOCRIT (BEAKER) (test code = 49.0 % 40.0-50.0 411) POCT-GLUCOSE [id number] 12:49:00 Test Item Value Reference Range Interpretation Comments POC-GLUCOSE METER 208 mg/dL 70-[address] [facility] 67[address] (BEAKER) (test code = [place] [address]) [address] HEMOGLOBIN [id number] 11:52:00 Test Item Value Reference Range Interpretation Comments HEMOGLOBIN A1C (BEAKER) (test code = 10.8 % 4.3-6.1 H 368) RAD, CHEST, 2 [id number] 10:32:00Reason for exam:->Pre opFINAL REPORT Chest two views Discussion: Heart, lungs, bones, soft tissues unremarkable. No effusion or pneumothorax. Signed: Vandana Todd Verified Date/Time: 08/18/2017 10:32:09 Reading Location: [facility] Reading Room POCT-GLUCOSE [id number] 08:56:00 Test Item Value Reference Range Interpretation Comments POC-GLUCOSE METER 199 mg/dL 70-[address] [facility] 67[address] (BEAKER) (test code = [place] 1538) [address] TSH/FREE T4 IF [id number] 05:00:00 Test Item Value Reference Range Interpretation Comments THYROID STIMULATING HORMONE 1.14 uIU/mL 0.35-4.94 (BEAKER) (test code = 772) LIPID [id number] 04:46:00 Test Item Value Reference Range Interpretation [...] 130-159 High 160-189 Very High >=190BASIC METABOLIC [id number] 04:46:00 Test Item Value Reference Range Interpretation [...] PATIEN TS. CBC W/PLT COUNT & AUTO [id number] 04:16:00 Test Item Value Reference Range Interpretation [...] PERCENT (BEAKER) (test code = 2801) TROPONIN [id number] 22:40:00 Test Item Value Reference Range Interpretation [...] failure, acidosis, acute neurological disease, and persistent tachyarrhythmia.[id number] 22:34:00 Test Item Value Reference Range Interpretation Comments MAGNESIUM (BEAKER) (test code = 2.2 mg/dL 1.6-2.6 627) BASIC METABOLIC [id number] 22:34:00 Test Item Value Reference Range Interpretation [...] APPLICABLE FOR DIALYSIS PATIEN TS. HEPATIC FUNCTION [id number] 22:34:00 Test Item Value Reference Range Interpretation [...] = 19 U/L 6-55 347) Specimen slightly lipemicPT/[id number] 22:08:00 Test Item Value Reference Range Interpretation [...] PERCENT (BEAKER) (test code = 2801) POCT-GLUCOSE [id number] 21:20:00 Test Item Value Reference Range Interpretation Comments POC-GLUCOSE METER 235 mg/dL 70-[address] [facility] 67[address] (BEAKER) (test code = [place]) [id number]
[2021-05-10] MEDS ORDERED: ONDANSETRON 4 MG/2 ML VIAL ONE (03:03)
[2021-05-10] MEDS ORDERED: NA CHLORIDE 0.9% 500 ML ONE (03:03)
[2021-05-10] MEDS ORDERED: FAMOTIDINE 20 MG/2 ML VIAL IV ONE (03:04)
[2021-05-10 03:39] LABS: Absolute Lymphocytes (CBC) 1.6 K/uL (0.7-4.9); Hematocrit 43.3 % (39.6-49.0); Lymphocytes % 20.6 % (15.3-44.8); MPV 10.1 fL (7.6-11.3); RBC Red Blood Cell Count 4.62 M/uL (4.33-5.43)
[2021-05-10 04:02] LABS: Albumin 3.3 g/dL (3.4-5.0); Bilirubin Total 1.9 mg/dL (0.2-1.0); Potassium 3.7 mmol/L (3.5-5.1); Protein, Total 6.9 g/dL (6.4-8.2)
[2021-05-10 06:50] LABS: Urine Blood Negative (Negative); Urine Glucose Negative (Negative); Urine Protein 2+ (Negative); Urine Specific Gravity >=1.030 (1.005-1.030); Urine pH 5.5 (5.0-7.0)
[2021-05-10] MEDS ORDERED: CEFTRIAXONE 1000 MG/VIAL ONE (07:33)
--- NOTE | 2021-05-10 08:42 | ER ---
Nurse's Notes [facility] Name: Jersey De Leon Jr Age: 66 yrs Sex: Male : 1955 Arrival Date: 05/10/2021 Time: 01:52 Bed 15 Private MD: Diagnosis: Upper abdominal pain, unspecified;Nausea with vomiting, unspecified;UTI/ Urinary tract infection, site not specified;Anasarca Presentation: 05/10 02:00 Chief complaint: Patient states: "I have been having nausea and vomiting for two days. tw5 I am just so sick to my stomach. I took a couple of Phenergan and 1130 tonight and that didn't help.". Coronavirus screen: Vaccine status: Patient reports being unvaccinated. Ebola Screen: Patient negative for fever greater than or equal to 101.5 degrees Fahrenheit, and additional compatible Ebola Virus Disease symptoms Patient denies exposure to infectious person. Patient denies travel to an Ebola-affected area in the 21 days before illness onset. Initial Sepsis Screen: Does the patient meet any 2 criteria? RR > 20 per min. HR > 90 bpm. Yes Does the patient have a suspected source of infection? Yes: Acute abdominal pain. Risk Assessment: Do you want to hurt yourself or someone else? Patient reports no desire to harm self or others. Onset of symptoms was May 09, 2021. 02:00 Method Of Arrival: Wheelchair tw5 02:00 Acuity: RODERICK 3 tw5 Triage Assessment: 02:04 General: Appears uncomfortable, Behavior is appropriate for age, agitated. Pain: tw5 Complains of pain in abdomen Pain currently is 5 out of 10 on a pain scale. GI: Reports nausea, vomiting. Historical: - Allergies: 02:02 Morphine; tw5 02:02 Paxil; tw5 - Home Meds: 02:04 Entresto 24-26 mg oral tab 1 tab 2 times per day [Active]; bumetanide 1 mg Oral tab 2 tw5 tabs 2 times per day [Active]; spironolactone 25 mg Oral tab 1 tab once daily [Active]; alprazolam 0.5 mg Oral Tb24 2 tabs once daily [Active]; hydrocodone-acetaminophen 2.5-325 mg Oral tab 1 tab every 6 hours [Active]; - PMHx: 02:02 CAD; Diabetes - NIDDM; High Cholesterol; Kidney stones; Leukemia; tw5 - Immunization history:: Flu vaccine is not up to date. Patient has never been vaccinated. - Social history:: Smoking status: Patient reports the use of cigarette tobacco products. Screenin:25 Abuse screen: Denies threats or abuse. Denies injuries from another. Nutritional goldie screening: No deficits noted. Tuberculosis screening: No symptoms or risk factors identified. Fall Risk None identified. Assessment: 02:33 Reassessment: The pt was brought to room #15 at 0208 and a "Code Sepsis" was paged goldie overhead. The provider came to see the pt, soon after that. 04:25 GI: Abdomen is noted to have ascites. goldie 05:16 Reassessment: The pt returned from [place] and forgot to put on his 1 L NC, as he desats to goldie 88% O2 Sat, at times, while sleeping. Pt placed back on 1L per NC. Vital Signs: 02:00 BP 99 / 85; Pulse 115; Resp 22; Temp 98.1; Pulse Ox 98% on R/A; Weight 97.98 kg; Height tw5 6 ft. 1 in. (185.42 cm); Pain 5/10; 02:10 BP 92 / 63; Pulse 66; Resp 18; Temp 98.3; Pulse Ox 96% on R/A; Pain 0/10; goldie 03:00 BP 103 / 78; Pulse 108; Resp 18; Pulse Ox 96% on R/A; Pain 0/10; goldie 04:00 BP 106 / 68; Pulse 106; Resp 18; Pulse Ox 98% on 1 lpm NC; Pain 0/10; goldie 05:00 BP 101 / 74; Pulse 104; Resp 18; Pulse Ox 98% on 1 lpm NC; Pain 0/10; goldie 05:54 BP 109 / 82; Pulse 108; Resp 18; Pulse Ox 98% on 1 lpm NC; goldie 08:24 BP 93 / 69; Pulse 103; Pulse Ox 98% ; ap3 02:00 Body Mass Index 28.50 (97.98 kg, 185.42 cm) tw5 ED Course: 01:52 Patient arrived in ED. jj6 02:02 Triage completed. tw5 02:06 Arm band placed on right wrist. tw5 02:14 Braulio Rocha MD is Attending Physician. 7 02:33 Ciara Stephens, RN is Primary Nurse. goldie 03:32 Blood Culture Adult (2) Sent. goldie 03:32 Lactate Sent. goldie 03:32 Procalcitonin Sent. goldie 03:33 CBC with Diff Sent. goldie 03:33 CMP Sent. goldie 03:33 Lipase Sent. goldie 03:38 Blood Culture Adult (2) Sent. goldie 03:38 Lactate Sent. goldie 03:38 Procalcitonin Sent. goldie 03:38 CBC with Diff Sent. goldie 03:38 CMP Sent. goldie 03:38 Lipase Sent. goldie 04:07 Chest Single View XRAY In Process Unspecified. EDMS 04:25 No provider procedures requiring assistance completed. goldie 04:26 Patient has correct armband on for positive identification. Bed in low position. Call goldie light in reach. 05:07 CT Abd/Pelvis - IV Contrast Only In Process Unspecified. EDMS 06:52 Blood Culture Adult (2) Sent. goldie 08:14 Primary Nurse role handed off by Ciara Stephens RN eb 08:24 Patti Acevedo, STAN is Primary Nurse. ap3 Administered Medications: 03:32 Drug: NS 0.9% 500 ml Route: IV; Rate: bolus; Site: right antecubital; goldie 09:18 Follow up: IV Status: Completed infusion ap3 03:33 Drug: Pepcid (famotidine) 20 mg Route: IVP; Site: right antecubital; goldie 03:33 Drug: Zofran (Ondansetron) 4 mg Route: IVP; Site: right antecubital; goldie 07:37 Drug: Rocephin (cefTRIAXone) 1 grams Route: IV; Rate: per protocol; Site: right ap3 antecubital; 07:37 Follow up: IV Status: Completed infusion ap3 09:18 Follow up: IV Status: Completed infusion ap3 Outcome: 04:26 Condition: stable goldie 09:17 AMA AMA form signed ap3 09:17 Discharge instructions given to patient, family, Instructed on discharge instructions, follow up and referral plans. Demonstrated understanding of instructions, follow-up care. 09:19 Patient left the ED. ap3 Signatures: Dispatcher [employer] EDMS Patti Acevedo RN RN ap3 Chanel Vance Maurice MD MD mh7 Shayy Cisneros tw5 Ema Abraham jj6 Ciara Stephens RN RN goldie Corrections: (The following items were deleted from the chart) 03:36 03:34 BP 92 / 63; Pulse 66bpm; Resp 20bpm; Pulse Ox 97% RA; Temp 98.5F; Pain 0/10; goldie goldie
--- NOTE | 2021-05-10 08:42 | EDPHYS ---
Physician Documentation [facility] Name: Jersey De Leon Jr Age: 66 yrs Sex: Male : 1955 Arrival Date: 05/10/2021 Time: 01:52 Bed 15 Private MD: ED Physician Braulio Rocha HPI: 05/10 02:35 This 66 yrs old Male presents to ER via Wheelchair with complaints of Nausea/Vomiting, mh7 Abdominal Cramping. 02:35 The patient presents to the emergency department with nausea, that is moderate, mh7 vomiting, that is intermittent, described as clear fluid, abdominal pain, of the right upper quadrant and left upper quadrant. Onset: The symptoms/episode began/occurred 2 day(s) ago. Possible causes: unknown. The symptoms are aggravated by nothing. The symptoms are alleviated by nothing. Associated signs and symptoms: Pertinent negatives: anorexia, belching, constipation, diarrhea, dysuria, fever, flatulence, GI bleeding, hematuria. Severity of symptoms: At their worst the symptoms were moderate last night, in the emergency department the symptoms are unchanged. Historical: - Allergies: 02:02 Morphine; tw5 02:02 Paxil; tw5 - Home Meds: 02:04 Entresto 24-26 mg oral tab 1 tab 2 times per day [Active]; bumetanide 1 mg Oral tab 2 tw5 tabs 2 times per day [Active]; spironolactone 25 mg Oral tab 1 tab once daily [Active]; alprazolam 0.5 mg Oral Tb24 2 tabs once daily [Active]; hydrocodone-acetaminophen 2.5-325 mg Oral tab 1 tab every 6 hours [Active]; - PMHx: 02:02 CAD; Diabetes - NIDDM; High Cholesterol; Kidney stones; Leukemia; tw5 - Immunization history:: Flu vaccine is not up to date. Patient has never been vaccinated. - Social history:: Smoking status: Patient reports the use of cigarette tobacco products. ROS: 02:35 Constitutional: Negative for fever, chills, and weight loss, Eyes: Negative for injury, mh7 pain, redness, and discharge, ENT: Negative for injury, pain, and discharge, Neck: Negative for injury, pain, and swelling, Cardiovascular: Negative for chest pain, palpitations, and edema, Respiratory: Negative for shortness of breath, cough, wheezing, and pleuritic chest pain, Back: Negative for injury and pain, : Negative for injury, bleeding, discharge, and swelling, MS/Extremity: Negative for injury and deformity, Skin: Negative for injury, rash, and discoloration, Neuro: Negative for headache, weakness, numbness, tingling, and seizure, Psych: Negative for depression, anxiety, suicide ideation, homicidal ideation, and hallucinations, Allergy/Immunology: Negative for hives, rash, and allergies, Endocrine: Negative for neck swelling, polydipsia, polyuria, polyphagia, and marked weight changes, Hematologic/Lymphatic: Negative for swollen nodes, abnormal bleeding, and unusual bruising. Exam: 02:35 Head/Face: Normocephalic, atraumatic. Eyes: Pupils equal round and reactive to light, mh7 extra-ocular motions intact. Lids and lashes normal. Conjunctiva and sclera are non-icteric and not injected. Cornea within normal limits. Periorbital areas with no swelling, redness, or edema. Neck: Trachea midline, no thyromegaly or masses palpated, and no cervical lymphadenopathy. Supple, full range of motion without nuchal rigidity, or vertebral point tenderness. No Meningismus. Chest/axilla: Normal chest wall appearance and motion. Nontender with no deformity. No lesions are appreciated. 02:35 Back: No spinal tenderness. No costovertebral tenderness. Full range of motion. Skin: Warm, dry with normal turgor. Normal color with no rashes, no lesions, and no evidence of cellulitis. MS/ Extremity: Pulses equal, no cyanosis. Neurovascular intact. Full, normal range of motion. Neuro: Awake and alert, GCS 15, oriented to person, place, time, and situation. Cranial nerves II-XII grossly intact. Motor strength 5/5 in all extremities. Sensory grossly intact. Cerebellar exam normal. Normal gait. Psych: Awake, alert, with orientation to person, place and time. Behavior, mood, and affect are within normal limits. 02:35 Constitutional: The patient appears in no acute distress, alert, awake, uncomfortable. 02:35 Cardiovascular: Rate: tachycardic, Rhythm: regular, Pulses: no pulse deficits are appreciated, Heart sounds: normal, normal S1and S2, Edema: pedal edema, that is moderate, JVD: is not appreciated. 02:35 Respiratory: the patient does not display signs of respiratory distress, Respirations: normal, Breath sounds: rhonchi, that are mild, are scattered, Respiratory rate: 20 02:35 Abdomen/GI: Inspection: distension, that is mild, obese Bowel sounds: normal, in all mh7 quadrants, Palpation: mild abdominal tenderness, in the right upper quadrant and left upper quadrant, mass, is not appreciated, rebound tenderness, is not appreciated, voluntary guarding, is not appreciated, involuntary guarding, is not appreciated, Rectal exam: the exam is deferred, because of patient request, Indicators: McBurney's point is not tender, Gonzales's sign is negative, Rovsing's sign is negative, Obturator sign is negative, Psoas sign is negative, Liver: is enlarged, Hernia: not appreciated. Vital Signs: 02:00 BP 99 / 85; Pulse 115; Resp 22; Temp 98.1; Pulse Ox 98% on R/A; Weight 97.98 kg; Height tw5 6 ft. 1 in. (185.42 cm); Pain 5/10; 02:10 BP 92 / 63; Pulse 66; Resp 18; Temp 98.3; Pulse Ox 96% on R/A; Pain 0/10; goldie 03:00 BP 103 / 78; Pulse 108; Resp 18; Pulse Ox 96% on R/A; Pain 0/10; goldie 04:00 BP 106 / 68; Pulse 106; Resp 18; Pulse Ox 98% on 1 lpm NC; Pain 0/10; goldie 05:00 BP 101 / 74; Pulse 104; Resp 18; Pulse Ox 98% on 1 lpm NC; Pain 0/10; goldie 05:54 BP 109 / 82; Pulse 108; Resp 18; Pulse Ox 98% on 1 lpm NC; goldie 08:24 BP 93 / 69; Pulse 103; Pulse Ox 98% ; ap3 02:00 Body Mass Index 28.50 (97.98 kg, 185.42 cm) tw5 MDM: 08:34 Differential diagnosis: Nonspecific abd pain, gastritis, pancreatitis, diverticulitis, mh7 viral gastroenteritis, gastroenteritis. Data reviewed: vital signs, nurses notes, old medical records, lab test result(s), cardiac enzymes, CBC, electrolytes, urinalysis, bacteruria, EKG, radiologic studies, CT scan, plain films. Data interpreted: Pulse oximetry: on room air is 98 %. Interpretation: normal. Counseling: I had a detailed discussion with the patient and/or guardian regarding: the historical points, exam findings, and any diagnostic results supporting the discharge/admit diagnosis, lab results, radiology results, the need for further work-up and treatment in the hospital. Response to treatment: the patient's symptoms have markedly improved after treatment. Refusal of service: The patient/guardian displays adequate decision making capability and despite a detailed discussion of alternatives, benefits, risks, and consequences refuses: Admission to the hospital for further work-up and treatment. ED course: Feels better, NAD, VSS, no focal neurological deficits. Tolerating PO intake without difficulty. No abdominal pain, nausea, or vomiting. Discussed all test results and findings and recommended admission for further care and evaluation. He declined admission and wants to leave against medical advice. Explained the possibility of permanent disability and/or if condition worsens. He verbalized that he understood this information as presented. He will follow up with his doctor but return to ER if worsening of symptoms or other urgent concerns.. 08:42 Patient medically screened. [facility] 05/10 02:28 Order name: CBC with Diff; Complete Time: 04:03 [facility] 05/10 02:28 Order name: CMP; Complete Time: 04:03 [facility] 05/10 02:28 Order name: Lipase; Complete Time: 04:03 [facility] 05/10 02:28 Order name: Lactate; Complete Time: 04:03 [facility] 05/10 02:28 Order name: Procalcitonin; Complete Time: 04:21 [facility] 05/10 02:29 Order name: Blood Culture Adult (2) [facility] 05/10 02:28 Order name: CT Abd/Pelvis - IV Contrast Only [facility] 05/10 02:28 Order name: Chest Single View XRAY [facility] 05/10 06:51 Order name: Urine Dipstick-Ancillary; Complete Time: 07:04 [facility] 05/10 07:21 Order name: Troponin High Sensitivity; Complete Time: 08:31 [facility] 05/10 07:21 Order name: PROBNP; Complete Time: 08:31 [facility] 05/10 02:28 Order name: IV Saline Lock; Complete Time: 03:33 [facility] 05/10 02:28 Order name: Labs collected and sent; Complete Time: 03:33 [facility] 05/10 02:28 Order name: Urine Dipstick-Ancillary (obtain specimen); Complete Time: 06:52 [facility] 05/10 02:28 Order name: EKG; Complete Time: 02:29 [facility] 05/10 02:28 Order name: EKG - Nurse/Tech; Complete Time: 02:58 [facility] Administered Medications: 03:32 Drug: NS 0.9% 500 ml Route: IV; Rate: bolus; Site: right antecubital; goldie 09:18 Follow up: IV Status: Completed infusion ap3 03:33 Drug: Pepcid (famotidine) 20 mg Route: IVP; Site: right antecubital; goldie 03:33 Drug: Zofran (Ondansetron) 4 mg Route: IVP; Site: right antecubital; goldie 07:37 Drug: Rocephin (cefTRIAXone) 1 grams Route: IV; Rate: per protocol; Site: right ap3 antecubital; 07:37 Follow up: IV Status: Completed infusion ap3 09:18 Follow up: IV Status: Completed infusion ap3 Disposition Summary: 05/10/21 08:42 Left Against Medical Advice Location: Home [facility] Problem: an acute exacerbation [facility] Symptoms: have improved [facility] Condition: Stable [facility] Diagnosis - Upper abdominal pain, unspecified 7 - Nausea with vomiting, unspecified 7 - UTI/ Urinary tract infection, site not specified [facility] - Anasarca [facility] Followup: [facility] - With: Private Physician - When: 1 - 2 days - Reason: Worsening of condition, Recheck today's complaints, Continuance of care, Re-evaluation by your physician Discharge Instructions: - Discharge Summary Sheet [facility] - Nausea and Vomiting, Adult mh7 - Urinary Tract Infection, Adult, [id number] mh7 - Abdominal Pain, Adult, [id number] mh7 - Edema, [id number] [facility] Prescriptions: - ondansetron 4 mg Oral tablet,disintegrating - place 1 tablet by TRANSLINGUAL route every 8 hours As needed; 12 tablet; 7 Refills: 0, Product Selection Permitted - Cephalexin 500 mg Oral Capsule - take 1 capsule by ORAL route every 12 hours for 7 days; 14 capsule; Refills: 0, [facility] Product Selection Permitted - Pepcid 20 mg Oral Tablet - take 1 tablet by ORAL route every 12 hours for 5 days; 10 tablet; Refills: 0, mh7 Product Selection Permitted Signatures: Dispatcher [employer] Patti Vickers RN RN ap3 Braulio Rocha MD MD 7 Shayy Cisneros tw5 Ciara Stephens RN RN goldie Corrections: (The following items were deleted from the chart) 03:22 03:21 This 66 yrs old Male presents to ER via Wheelchair with complaints of mh7 Nausea/Vomiting, Abdominal Cramping. mh7
[2021-05-10 09:25] VITALS: TEMP 98.3
[2021-05-10 09:27] VITALS: O2SAT 98
[2021-05-10 09:31] VITALS: BP 93/69
--- NOTE | 2021-05-10 17:17 | RAD REPORT ---
EXAM DESCRIPTION: CT abdomen and pelvis with IV contrast CLINICAL HISTORY: 66 years Male Abd pain; Nausea / vomiting TECHNIQUE: Axial CT imaging of the abdomen and pelvis was performed following the administration of intravenous contrast.. Oral contrast was not administered. Sagittal and coronal reconstructed image s were then performed. The CT study is performed according to ALARA (as low as reasonably achievabl e) or ALARA/IMAGE GENTLY, with automatic adjustment of mA and/or kV according to patient size. Performed on: 05/10/2021 at 4:56 AM. COMPARISON: CT abdomen and pelvis without contrast performed on 10/14/2015 FINDINGS: Lung bases: There are moderate bilateral pleural effusions with associated mild bibasilar atelectasis. There are remote postsurgical changes of the mediastinum. The heart is top normal in siz e. Liver: The liver measures approximately 22 cm in craniocaudal dimension. No focal hepatic abnormaliti es are identified. There is diffusely decreased attenuation of the liver commonly due to steatosis. T he hepatic and portal veins are patent. There appears be a slightly nodular contour of the liver whic h could indicate underlying hepatic cirrhosis. Spleen: The spleen is normal is size, configuration and attenuation. Gallbladder and bile duct: The gallbladder is well distended and unremarkable. There is no biliary ductal dilatation. Pancreas: The pancreas is grossly normal in size and configuration. There is a small calcification in the region of the pancreatic head. Adrenal Glands: The adrenal glands are normal in size and configuration. Kidneys: The kidneys are normal in size and configuration. There is no evidence of hydronephrosis. Th ere is no evidence of nephrolithiasis. There is an approximately 1.9 cm cyst arising from the upper p ole of the right kidney. Stomach: The stomach is grossly normal. There is no definite hiatal hernia. Bowel: The bowel gas pattern is non specific and non obstructive. There is some oral contrast present within the colon which may be related to a prior procedure. There is scattered small bowel wall thic kening which may be related to the presence of ascites. Appendix: The appendix is normal. Free air: There is no evidence of free air. Free fluid: There is a moderate volume of low density ascites which may be related to underlying hepa tocellular disease Vasculature: There is mild dilatation of the infrarenal abdominal aorta which measures approximately 2.9 cm in transverse dimension. There are mild atherosclerotic calcifications along the abdominal aor ta and iliofemoral arteries. The inferior vena cava is grossly unremarkable. Lymphadenopathy: No pathologic lymphadenopathy is identified. Bladder: The bladder is well distended and smooth in contour. Reproductive: The prostate gland is grossly within normal limits. Bones: No acute osseous abnormalities are identified. Soft tissues: There is diffuse infiltration of the subcutaneous fat consistent with anasarca. IMPRESSION: 1. Moderate bilateral pleural effusions with associated mild bibasilar atelectasis. 2. Hepatomegaly with evidence of hepatic steatosis. There is a slightly nodular contour of the live r which could indicate underlying hepatic cirrhosis. 3. Moderate volume of low density ascites which may be related to underlying hepatocellular disease . 4. Diffuse infiltration of the subcutaneous fat consistent with anasarca. 5. Mild dilatation of the infrarenal abdominal aorta which measures approximately 2.9 cm in transvers e dimension. Recommend follow-up every 5 years. Reference: J Am Janis Radiol 2013;10:789-794. 6. There is some oral contrast present within the colon which may be related to a prior procedure. Electronically signed by: Raquel Contreras DO 05/10/2021 6:36 AM CDT Due to temporary technical issues with the PACS/Fluency reporting system, reports are being signed by the in house radiologists without review as a courtesy to insure prompt reporting. The interpreting radiologist is fully responsible for the content of the report.
--- NOTE | 2021-05-10 17:36 | RAD REPORT ---
EXAM DESCRIPTION: Chest Radiography COMPARISON: Chest radiograph April 17, 2021 CLINICAL HISTORY: [facility] FINDINGS: A single AP view of the chest demonstrates a normal cardiomediastinal silhouette. Left jenna st pacemaker in place. No pneumothorax. Small left pleural effusion. Perihilar opacities are stable. Osseous structures are intact. IMPRESSION: Stable chest with small left effusion and edema or pneumonia. Electronically signed by: Mane Cook MD 05/10/2021 5:04 AM CDT Due to temporary technical issues with the PACS/Fluency reporting system, reports are being signed by the in house radiologists without review as a courtesy to insure prompt reporting. The interpreting radiologist is fully responsible for the content of the report.
--- NOTE | 2021-05-11 11:16 | EKG ---
Test Date: 2021-05-10 Test Time: 02:43:29 Photograph Developer: MEASUREMENT RESULTS: Intervals: Rate: 107 TN: 224 QRSD: 136 QT: 394 QTc: 525 [place]: P: TN: 224 QRS: -56 T: 15 INTERPRETIVE STATEMENTS: Sinus tachycardia with 1st degree AV block with premature atrial complexes Left axis deviation Nonspecific intraventricular block Inferior infarct, age undetermined Lateral injury pattern ACUTE OK / STEMI Abnormal ECG Compared to ECG 03/17/2021 14:25:34 Atrial premature complex(es) now present First degree AV block now present T-wave abnormality no longer present Possible ischemia no longer present Myocardial infarct finding still present Electronically Signed On 05-11-21 11:12:22 CDT by Shawn Lockhart
--- NOTE | 2021-05-12 08:34 | EKG ---
Test Date: 2021-05-10 Test Time: 02:48:39 Taping Machine Operator: MEASUREMENT RESULTS: Intervals: Rate: 106 SD: 180 QRSD: 142 QT: 384 QTc: 510 [place]: P: 43 SD: 180 QRS: -77 T: 117 INTERPRETIVE STATEMENTS: Sinus tachycardia Left axis deviation Nonspecific intraventricular block T wave abnormality, consider lateral ischemia Abnormal ECG Compared to ECG 05/10/2021 02:43:29 T-wave abnormality now present Possible ischemia now present Atrial premature complex(es) no longer present First degree AV block no longer present Myocardial infarct finding no longer present Electronically Signed On 05-12-21 08:28:27 CDT by Shawn Lockhart
== END 2021-05-10 09:19 | disposition left against medical advice (07) ==
LOC: ER 01:47
DX: N39.0 Urinary tract infection, site not specified (principal); R11.2 Nausea with vomiting, unspecified; R60.1 Generalized edema; Z88.6 Allergy status to analgesic agent; Z88.8 Allergy status to other drugs, medicaments and biological substances; E11.9 Type 2 diabetes mellitus without complications; E78.00 Pure hypercholesterolemia, unspecified; C95.90 Leukemia, unspecified not having achieved remission; F17.210 Nicotine dependence, cigarettes, uncomplicated; Z53.29 Procedure and treatment not carried out because of patient's decision for other reasons
CPT/HCPCS: 96361; 93005 ×2; 87040 ×2; 85025; 36415; 83605; 81003; 84484; 83690; 80053; 84145; 83880; 74177; 71045; 96375; 96374; 99284; Q9967; J7040; J2405

== ENCOUNTER 2021-07-02 09:30 | Inpatient (IN) | payer OTHER ==
--- OUTSIDE RECORDS SUMMARY | 2021-07-02 09:39 | XMS REPORT | Continuity of Care Document ---
:[address] [facility] t Address [address] [place] [address] Care Team Providers Name Role Phone Asked, [...] Unavailable Dina Lee MD Attending Clinician , [facility] Attending Clinician Unavailable JEAN-CLAUDE Attending Clinician Unavailable [...] Number Effective Date Expiration Date S valdez [facility] POS [id number] 2015 SELECT CHOICE 00:00:00 MEDICARE A B [id number] 2020 00:00:00 [employer] LIFE [id number] 2020 00:00:00 SELECT/SELECT PLUS [id number] [facility] MEDICARE PART A AND [id number] 2020 B 00:00:00 [employer] LIFE [id number] 2020 00:00:00 [facility] [id number] 2018 PPO 00:00:00 [facility] [id number] 2015 PPO 00:00:00 Problems Condition Condition Condition Status Onset Resolution Last Treating Co mments Source Name Details Category Date Date Treatment Clinician Date 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 With multiple sequalea, Will focus eval on pulmonary and cardiac manifesta tions Leg Leg Disease Active [facility] swelling [facility] t & Plan: of 00 Formattin Medicin g of this e note might be different from the original. Worse post COVID, multifact orial with biventric ular failure, Pulm HTN Will check LE dopplers for DVT COVID-19 COVID-19 Disease Active Last [facility] r long [facility] ha[facility] hauler 00:00: t & Plan: of manifestin manifestin 00 Formattin Medicin g chronic g chronic g of this e dyspnea dyspnea note might be different from the original. Pulmonary fibrosis, uncelar if prior to C0VID but clearly worsening shelley order a CT chest Refer to ILD Pulm clinic Refer to pulm rehab Biventricu Biventricu Disease Active Last [facility] aylor [facility] congestive congestive 00:00: t & Plan: of heart heart 00 Formattin Medicin failure failure g of this e (HCCode) (HCCode) note might be different from the original. 2 d echo orderedre bhavya to Dr Bran for evaluatio n and managemen t Fatigue Fatigue Disease Active [facility] 02-15 [facility] 00:00: t & Plan: of Formattin Medicin g of this e note might be different from the original. Post COVID , multifact orial Cough Cough Disease Active [facility] 02-15 [facility] 00:00: t & Plan: of Formattin Medicin g of this e note might be different from the original. Prior CT report mentions bronchiec tasisCoun seld on smoking cessation Will check new CT and optimize airway managemen t according ly Dizziness Dizziness Disease Active [facility] 02-15 [facility] 00:00: of 00 Medicin e Pneumonia Pneumonia Disease Active [facility] due to due to 02-15 [facility] COVID-19 COVID-19 00:00: of virus virus 00 Medicin e Shortness Shortness Disease Active [place] [facility] of breath of breath 02-15 [facility] 00:00: of 00 Medicin e Excessive Excessive Disease Active [facility] naya daytime daytime [facility] sleepiness sleepiness 00:00: t & Plan: of 00 Formattin Medicin g of this e note might be different from the original. With sig fatigueHa s Hx DORY COVID-19 COVID-19 Disease Active [facility] 02-15 [facility] 00:00: of 00 Medicin e Multiple Multiple [facility] sub[facility] subsegment [facility] al al 00:00: t & Plan: of pulmonary pulmonary 00 Formattin M edicin emboli emboli g of this e without without note acute cor acute cor might be pulmonale pulmonale different (HCCode) (HCCode) from the (HCC) (HCC) original. Hx pulm embolism with COVID illness , not currently on therapy Encounter Encounter Disease Active [facility] naya for for 02-15 [facility] smoking smoking 00:00: t & Plan: of cessation cessation 00 Maribel patino counseling counseling g of this e note might be different from the original. Declined ref to smoking cessation program , Stenosis Stenosis Disease [facility] carotid carotid 00:00: Medical artery artery 00 Center Right Right Disease Active [facility] carotid carotid 05-29 [facility] artery artery 00:00: Medical occlusion occlusion 00 Cent er Ischemic Ischemic Disease Active 2017-02 [facility] di cardiomyop cardiomyop 02-25 [facility] athy athy 00:00: Hospita 00 l HTN HTN Disease Active [facility] (hypertens (hypertens 08-29 [facility] k[facility] ion) ion) 00:00: Medical 00 Center DM DM Disease Active [facility] (diabetes (diabetes 08-29 [facility] mellitus) mellitus) 00:00: Medi harpal 00 Center VT VT Disease Active [facility] (ventricul (ventricul 08-29 [facility] ar ar 00:00: Medical tachycardi tachycardi 00 Ce nter a) a) Systolic Systolic Disease [facility] heart heart 08[facility]29 [facility] failure failure 00:00: Medical ([facility]): EF ([facility]): EF 00 Cent er 25-29% on 25-29% on 08/29/17 08/29/17 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) 00:00: Medi harpal in in 00 Center remission remission CAD CAD Disease Active [facility] (coronary (coronary 08-17 [facility] artery artery 00:00: Medical disease) disease) 00 Center Respirator Respirator Disease Active [facility] insufficie insufficie Me dical ncy ncy Center S/P CABG x S/P CABG x Disease Active [facility] 2 2 [facility] Cardiogeni Cardiogeni Disease Active [facility] c shock c shock [facility] Lactic Lactic Disease Active [facility] acidosis acidosis [facility] Acute Acute Disease Active [facility] respirator respirator Vania kes y failure y failure Medi harpal with with Center hypoxia hypoxia Leukemia Leukemia Disease Active Last [facility] in in [facility] remission remission t & Plan: o f (HCCode) (HCCode) Formattin Med icin g of this e note might be different from the original. Follows up at [facility] Allergies, Adverse Reactions, Alerts Allergy Allergy Status Severity Reaction(s) Onset Inactive Treating Comm ents Source Name Type Date Date Clinician Opioid Propensi Active [facility] Analgesi ty to 02-12 College cs adverse 00:00: of reaction 00 Medicin [...] Respirato [facility] Allergy 08-17 [facility] 00:[facility]: depressio Medical 00 n Center Paroxeti Propensi Active [facility] ne Hcl ty to 08-17 [facility] adverse 00:00: Medical reaction 00 Center s [...] Stop Date Quantity Comments Source History SDOH [facility] ge Alcohol Std Drinks of Med icine Exposure to Not sure [facility] Colleg e SARS-CoV-2 (event) [facility] Med [facility] History [facility] Comment Hospital Alcohol intake 2021-03-26 2021-03-26 Lifetime [facility] Col lege 00:00:00 00:00:00 non-drinker of Medicine (finding) History SDOH 2021-02-12 2021-02-12 1 [facility] ge Alcohol Frequency 00:00:00 00:00:00 of [employer] Cigarettes smoked 2021-02-12 2021-02-12 [facility] current (pack per 00:00:00 00:00:00 of Dev[employer] day) - Reported Cigarette 2021-02-12 2021-02-12 [facility] pack-years 00:00:00 00:00:00 of Medicine Tobacco use and 2021-02-12 2021-02-12 Smokeless tobacco [facility] exposure 00:00:00 00:00:00 non-user of Medicine Sex [birth year] [facility] Co llege 00:00:00 00:00:00 of Medicine Smoking Status Start Date Stop Date Source Heavy tobacco smoker 2021-02-12 00:00:00 [facility] Smokes tobacco daily 2017-12-26 00:00:00 [facility] [place] Medications Ordered Filled Start Stop Current Ordering Indication Dosage Frequency Signature Comments Components Source Medication Medication Date Date Medication? Clinician (SIG) Name Name Zinc 50 MG Yes 50mg Take 50 mg B aylor TABS 2-17 by mouth College 08:50: daily. of 55 Medicin e atorvastati Yes Take by León rao n (LIPITOR) -17 [facility] 80 MG 08:50: daily. of tablet 05 Medicin e promethazin Yes 12.5mg Take 12.5 [facility] e 2-17 mg by [facility] (PHENERGAN) 08:50: mouth of 12.5 MG 05 every 6 Medicin tablet hours as e needed for Nausea. Pyridoxine Yes Take by [place] HCl -17 mouth. [facility] (VITAMIN 08:50: of B-6) 100 MG 05 Medicin TABS e Sacubitril- Yes Take by Ba [facility] Valsartan 2-17 mouth. [place] 24-26 MG 08:50: of TABS 05 Medicin e bumetanide 0 Yes 1mg Take 1 mg [facility] (BUMEX) 2 2-17 by mouth Colleg e MG tablet 08:50: two times of 05 daily. Medicin e alprazolam 0 Yes .5mg Take 0.5 [place] (XANAX) 0.5 2-17 mg by [place] MG tablet 08:50: mouth of 05 nightly as Medicin needed for e Sleep. Aspirin 81 0 Yes 81mg Take 81 mg B aylor MG tablet 2-17 by mouth. Colle ge 08:50: of 05 Medicin e atorvastati 0 Yes Take by León rao n (LIPITOR) 2-08 mouth [facility] 80 MG 10:08: daily. of tablet 38 Medicin e promethazin Yes 12.5mg Take 12.5 [facility] e 2-08 mg by [place] (PHENERGAN) 10:08: mouth of 12.5 MG 38 every 6 Medicin tablet hours as e needed for Nausea. Pyridoxine Yes Take by [place] HCl 2-08 mouth. [place] (VITAMIN 10:08: of B-6) 100 MG 38 Medicin TABS e Sacubitril- 0 Yes Take by León rao Valsartan 2-08 mouth. [place] 24-26 MG 10:08: of TABS 38 Medicin e bumetanide 0 Yes 2mg Take 2 mg [facility] (BUMEX) 2 2-08 by mouth Colleg e MG tablet 10:08: daily. of 38 Medicin e alprazolam 0 Yes .5mg Take 0.5 [place] (XANAX) 0.5 2-08 mg by [place] MG tablet 10:08: mouth of 38 nightly as Medicin needed for e Sleep. Aspirin 81 0 Yes 81mg Take 81 mg B aylor MG tablet 2-08 by mouth. Colle ge 10:08: of 38 Medicin e Budesonide- 2021-0 2022- No Inhale by [facility] Formoterol 2-08 02-08 mouth. Colleg e Fumarate 09:58: 00:00 of 160-4.5 53 :00 Medicin MCG/ACT e AERO Aspirin 81 Yes 81mg Take 81 mg B aylor MG tablet 1-06 by mouth. [facility] ge 09:15: of 49 Medicin e atorvastati Yes Take by León rao n (LIPITOR) 1-06 mouth [place] 80 MG 09:06: daily. of tablet 11 Medicin e Budesonide- Yes Inhale by [facility] Formoterol 1-06 mouth. [place] Fumarate 09:06: of 160-4.5 11 Medicin MCG/ACT e AERO promethazin Yes 12.5mg Take 12.5 [facility] e 1-06 mg by [place] (PHENERGAN) 09:06: mouth of 12.5 MG 11 every 6 Medicin tablet hours as e needed for Nausea. Pyridoxine Yes Take by [place] HCl 1-06 mouth. [place] (VITAMIN 09:06: of B-6) 100 MG 11 Medicin TABS e Sacubitril- Yes Take by maira Valsartan 1-06 mouth. [place] 24-26 MG 09:06: of TABS 11 Medicin e bumetanide Yes 2mg Take 2 mg León ylor (BUMEX) 2 1-06 by mouth [facility] e MG tablet 09:06: daily. of 11 Medicin e alprazolam Yes .5mg Take 0.5 [place] (XANAX) 0.5 1-06 mg by [place] MG tablet 09:06: mouth of 11 nightly as Medicin needed for e Sleep. albuterol 2020-02 Yes [place] [id number] (03-11 [facility]) 00:00: of mcg/act 00 Medicin inhaler e albuterol 2020-02 Yes [place] [id number] ( 2 [facility]) 00:00: of mcg/act 00 Medicin inhaler e albuterol 2020-02 Yes [place] [address] ( 03-11 [facility]) 00:00: of mcg/act 00 Medicin inhaler e ipratropium Yes 2{puff} Q.[id number] Inhale [address] [facility] (ATROVENT 4-24 [id number] puffs by [facility] HFA) 17 13:25: 3D mouth via Medic al mcg/actuati [address] on inhaler (three) times daily. aspirin 81 0 Yes 81mg QD Take [address] MG EC 4-24 by mouth [facility] tablet 13:25: daily. Medical [address] [place] [address] atorvastati Yes 80mg QD Take [address] n (LIPITOR) 4-24 by mouth Luke s 80 MG 13:25: daily. Medical tablet 44 Center sacubitril- Yes 1{tbl} Q.5D Take [address] valsartan 4-24 tablet by [facility] (ENTRESTO) 13:25: mouth 2 Medi harpal 24-26 mg 44 (two) Center Tab times daily. bumetanide 0 Yes 1mg Q.5D Take [address] (BUMEX) 1 4-24 by mouth 2 Luke s MG tablet 13:25: (two) Medical 44 times Center daily. calcium Yes 1{tbl} QD Take [address] [facility] carbonate 4-24 tablet by [facility] (TUMS) 500 13:25: mouth Medica l mg chewable 44 daily. Center tablet ipratropium Yes 2{puff} Q.[id number] Inhale [address] [facility] (ATROVENT 4-24 [id number] puffs by [facility] HFA) 17 13:25: 3D mouth via Medic al mcg/actuati [address] on inhaler (three) times daily. aspirin 81 0 Yes 81mg QD Take [address] MG EC 4-24 by mouth [facility] tablet 13:25: daily. [address] atorvastati Yes 80mg QD Take [address] [facility] n (LIPITOR) 4-24 by mouth Luke s 80 MG 13:25: daily. Medical tablet 44 Center sacubitril- Yes 1{tbl} Q.5D Take [address] valsartan 4-24 tablet by [facility] (ENTRESTO) 13:25: mouth 2 Medi harpal 24-26 mg 44 (two) Center Tab times daily. bumetanide 0 Yes 1mg Q.5D Take [address] (BUMEX) 1 4-24 by mouth 2 Luke s MG tablet 13:25: (two) Medical 44 times Center daily. calcium Yes 1{tbl} QD Take [address] carbonate 4-24 tablet by [facility] (TUMS) 500 13:25: mouth Medica l mg chewable 44 daily. Center tablet ipratropium Yes 2{puff} Q.[id number] Inhale [address] (ATROVENT 4-24 [id number] puffs by [facility] HFA) 17 13:25: 3D mouth via Medic al mcg/actuati [address] on inhaler (three) times daily. aspirin 81 Yes 81mg QD Take [address] MG EC 4-24 by mouth [facility] tablet 13:25: daily. Medical 44 Center atorvastati Yes 80mg QD Take [address] n (LIPITOR) 4-24 by mouth Luke s 80 MG 13:25: daily. Medical tablet 44 Center sacubitril- Yes 1{tbl} Q.5D Take [address] valsartan 4-24 tablet by [facility] (ENTRESTO) 13:25: mouth 2 Medi harpal 24-26 mg 44 (two) Center Tab times daily. bumetanide Yes 1mg Q.5D Take [address] (BUMEX) 1 4-24 by mouth 2 Luke s MG tablet 13:25: (two) Medical 44 times Center daily. calcium Yes 1{tbl} QD Take [address] carbonate 4-24 tablet by [facility] (TUMS) 500 13:25: mouth Medica l mg chewable 44 daily. Center tablet promethazin 2020- No 25mg Take [address] [facility] e 4-23 04-23 by mouth [facility] (PHENERGAN) 22:33: 00:00 every 8 Me dical 12.5 MG 14 :00 (eight) Center tablet hours as needed for Nausea. glipiZIDE 0 2020- No 5mg Take [address] (GLUCOTROL) 4-23 04-23 by mouth 2 L ukes 10 MG 22:33: 00:00 (two) Medical tablet 14 :00 times Center daily before meals . promethazin 2020- No 25mg Take [address] [facility] e -30 05-23 by mouth [facility] (PHENERGAN) 22:33: 00:00 every 8 Me dical 12.5 MG 14 :00 (eight) Center tablet hours as needed for Nausea. glipiZIDE 2020- No 5mg Take [address] (GLUCOTROL) 05-30-23 by mouth 2 L ukes 10 MG 22:33: 00:00 (two) Medical tablet 14 :00 times Center daily before meals . promethazin 2020- No 25mg Take [address] [facility] [facility] e 05-30-23 by mouth [facility] (PHENERGAN) 22:33: 00:00 every 8 Me dical 12.5 MG 14 :00 (eight) Center tablet hours as needed for Nausea. glipiZIDE 2020- No 5mg Take [address] (GLUCOTROL) 05-30-23 by mouth 2 L ukes 10 MG 22:33: 00:00 (two) Medical tablet 14 :00 times Center daily before meals . cetirizine 2020- No 10mg QD Take [address] (ZYRTEC) 10 4-14 04-14 by mouth [facility] mg Cap 11:19: 00:00 nightly. Medica l 32 :00 [place] cetirizine 2020- No 10mg QD Take [address] (ZYRTEC) 10 4-14 04-14 by mouth Carlos es mg Cap 11:19: 00:00 nightly. Medica l 32 :00 [place] cetirizine 2020- No 10mg QD Take [address] (ZYRTEC) 10 4-14 04-14 by mouth Carlos es mg Cap 11:19: 00:00 nightly. Medica l 32 :00 [place] blood sugar 2019-02 Yes Use to [facility] ers diagnostic 1-04 check ity of (ONETOUCH 00:00: blood [place] ULTRA BLUE 00 sugar 3X Medic al TEST STRIP) daily. Branch strip DX:E09.9 Insulin 2019-02 Yes Use to [facility] [place], 1-04 inject ity of Disposable, 00:00: insulin 4X [place] (BD INSULIN 00 daily. Medica l PEN NEEDLE DX:E09.9 [facility] UF) 31 gauge x 5/16" Ndle Insulin 2019- Yes 8U Inject [facility] Lispro, 1 0-28 8-18 Units [facility] e[facility] Unit Dial, 00:00: into the of 100 UNIT/ML 00 skin. Medicin SOPN e Insulin 2019-02 Yes 8U Inject [facility] Lispro, 1 0-28 8-18 Units Janis ege Unit Dial, 00:00: into the of 100 UNIT/ML 00 skin. Medicin SOPN e Insulin 2019-02 Yes 8U Inject [facility] Lispro, 1 0-28 8-18 Units [facility]is e[facility] Unit Dial, 00:00: into the of 100 UNIT/ML 00 skin. Medicin SOPN e Insulin 2019-02 Yes [id number] 15U inject 15 Un gianna Glargine 0-28 Units ity of (LANTUS 00:00: under the [place] SOLOSTAR 00 skin every Medic al U-100 morning. Branch INSULIN) E10.65 100 unit/mL (3 mL) injection HUMALOG 2019-02 Yes [id number] 4U inject Unive rs KWIKPEN 0-28 4-10 Units ity of INSULIN 100 00:00: under the [place] unit/mL 00 skin 3 Medical injection (three) Branch times daily before meals. E10.65 ONETOUCH 2019-02 Yes [id number] Use as Univ ers DELICA 0-28 directed ity of LANCETS 30 00:00: E10.65 [place] gauge Misc 00 Medical Branch insulin 2019- Yes 15U Inject 15 [facility] glargine 0-28 Units [facility] (Lantus 00:00: subcutaneo Medi harpal Solostar 00 usly daily Cente r U-100 with Insulin) breakfast 100 unit/mL . (3 mL) InPn insulin 2019-02 Yes 4U Inject [facility] lispro 0-28 4-10 Units [facility] (HumaLOG 00:00: subcutaneo Med ical KwikPen 00 usly Center Insulin) Sliding 100 unit/mL scale. InPn insulin 2019-02 Yes 15U Inject 15 [facility] glargine 0-28 Units [facility] (Lantus 00:00: subcutaneo Medi harpal Solostar 00 usly daily Cente r U-100 with Insulin) breakfast 100 unit/mL . (3 mL) InPn insulin 2019-02 Yes 4U Inject [facility] lispro 0-28 4-10 Units [facility] (HumaLOG 00:00: subcutaneo Med ical KwikPen 00 usly [place] Insulin) Sliding 100 unit/mL scale. [facility] insulin 2019-02 Yes 15U Inject 15 [facility] glargine 0-28 Units [facility] (Lantus 00:00: subcutaneo Medi harpal Solostar 00 usly daily Cente r U-100 with Insulin) breakfast 100 unit/mL . (3 mL) [facility] insulin 2019-02 Yes 4U Inject [facility] lispro 0-28 4-10 Units [facility] (HumaLOG 00:00: subcutaneo Med ical KwikPen 00 usly [place] Insulin) Sliding 100 unit/mL scale. [facility] budesonide- 2019-02 Yes 2{puff} Q.5D [address] formoteroL 0-23 (two) [facility] (Symbicort) 00:00: times Medic al 160-4.5 00 daily. [place] mcg/actuati on inhaler budesonide- 2019-02 Yes 2{puff} Q.5D [address] formoteroL 0-23 (two) [facility] (Symbicort) 00:00: times Medic al 160-4.5 00 daily. [place] mcg/actuati on inhaler budesonide- 2019-02 Yes 2{puff} Q.5D [address] formoteroL 0-23 (two) [facility] (Symbicort) 00:00: times Medic al 160-4.5 00 daily. [place] mcg/actuati on inhaler gabapentin 2018- Yes 300mg Take 300 Un gianna 300 mg 1-18 mg by ity of capsule 14:30: mouth. [address] proMETHazin 2018- Yes 25mg Take 25 mg Univers e 12.5 mg 1-18 by mouth. ity o f tablet 14:30: [address] levoFLOXaci 2018- Yes 500mg Take 500 U nivers n 500 mg 1-18 mg by ity of tablet 14:30: mouth. [address] sacubitril- 2018- Yes Take by Un gianna valsartan 1-18 mouth. ity of (ENTRESTO) 14:30: [place] 24-[address] aspirin 81 Yes 81mg Take 81 mg U nivers mg EC 1-18 by mouth. ity of tablet 14:30: [address] atorvastati Yes 80mg Take 80 mg Univers n 80 mg 1-18 by mouth. ity of tablet 14:30: [address] Cetirizine Yes 10mg Take 10 mg U nivers (ZYRTEC) 10 1-18 by mouth. ity of mg capsule 14:30: [address] mercaptopur 2017-02 Yes 50mg Take 50 mg Univers ine 50 mg 2-27 by mouth. ity o f tablet 00:00: [address] traMADOL 50 2017-02 Yes 50mg Take 50 mg Univers mg tablet 2-27 by mouth. ity o f 00:00: [address] traMADol 2017-02 Yes 50mg Take [address] [facility] (ULTRAM) 50 2-27 by mouth. Carlos es mg tablet 00:00: [address] traMADol 2017-02 Yes 50mg Take [address] (ULTRAM) 50 2-27 by mouth. Carlos es mg tablet 00:00: [address] traMADol 2017-02 Yes 50mg Take [address] (ULTRAM) 50 2-27 by mouth. Carlos es mg tablet 00:00: [address] atorvastati 2017-02 Yes 80mg QD Take [...] ity of HFA) 17 00:00: [facility] on inhaler Branch amiodarone Yes Take 1 bid U nivers 200 mg 08-29 for 7 days ity of tablet 00:00: then [place] [id number] reduced to Medical 1 po daily Branch thereafter . amiodarone 2020- No Take [address] [facility] (PACERONE) 08-29 for 7 days Vania kes 200 MG 00:00: 00:00 then Medical tablet 00 :00 reduced to Center 1 po daily thereafter . amiodarone 2020- No Take [address] [facility] (PACERONE) 08-29-23 for 7 days Vania kes 200 MG 00:00: 00:00 then Medical tablet 00 :00 reduced to Center 1 po daily thereafter . amiodarone 2020- No Take [address] [facility] (PACERONE) 08-29 for 7 days Vania kes 200 MG 00:00: 00:00 then Medical tablet 00 :00 reduced to Center 1 po daily thereafter . Vital Signs Vital Name Observation Time Observation Value Comments Source HEIGHT 2020-05-29 06:25:00 185.4 cm WEIGHT 2020-05-29 06:25:00 92.851 kg HEIGHT 2020-05-28 13:05:00 185.4 cm WEIGHT 2020-05-28 13:05:00 93 kg Systolic blood 2021-03-26 14:54:00 106 mm[Hg] [facility] Medicine Diastolic blood 2021-03-26 14:54:00 64 mm[Hg] [facility] Medicine Heart rate 2021-03-26 14:54:00 106 /min [facility] Oxygen saturation in 2021-03-26 14:54:00 97 /min [facility] blood by [facility] Pulse oximetry Respiratory rate 2021-03-26 14:51:00 16 /min [facility] Body height 2021-03-26 14:51:00 185.4 [facility] Body weight 2021-03-26 14:51:00 98.431 kg [facility] BMI 2021-03-26 14:51:00 28.63 [facility] Sy[facility]olic blood 2021-03-17 16:06:00 114 mm[Hg] [facility] Medicine Diastolic blood 2021-03-17 16:06:00 73 mm[Hg] [facility] Medicine Heart rate 2021-03-17 16:06:00 71 /min [facility] Body temperature 2021-03-17 16:06:00 36.61 [facility] Body height 2021-03-17 16:06:00 185.4 cm [facility] Body weight 2021-03-17 16:06:00 98[facility]431 [facility] BMI 2021-03-17 16:06:00 28.63 kg[facility] Systolic blood 2021-02-12 14:53:00 111 mm[Hg] [facility] pressure Medicine Diastolic blood 2021-02-12 14:53:00 74 mm[Hg] [facility] Medicine Heart rate 2021-02-12 14:53:00 58 /min [facility] Body height 2021-02-12 14:53:00 185.4 cm [facility] Body weight 2021-02-12 14:53:00 92.987 kg [facility] BMI 2021-02-12 14:53:00 27.05 kg/m2 [facility] WEIGHT 2020-06-23 08:36:00 94.2 kg HEIGHT 2020-05-29 06:25:00 185.4 cm WEIGHT 2020-05-29 06:25:00 92.851 kg HEIGHT 2020-05-28 13:05:00 185.4 cm WEIGHT 2020-05-28 13:05:00 93 kg HEIGHT 2020-05-21 11:16:00 185.4 cm WEIGHT 2020-05-21 11:16:00 93.895 kg HEIGHT 2020-05-21 11:16:00 185.4 cm WEIGHT 2020-05-21 11:16:00 93.895 kg WEIGHT 2020-01-02 09:41:00 101.4 kg WEIGHT 2019-09-05 09:33:21 99.2 kg Heart rate 2020-05-31 09:16:00 92 /min [facility] Respiratory rate 2020-05-31 09:16:00 18 /min [facility] Oxygen saturation in 2020-05-31 09:16:00 97 /min [facility] Arterial blood by Medical Ce nter Pulse oximetry Systolic blood 2020-05-31 07:00:00 116 mm[Hg] [facility] Diastolic blood 2020-05-31 07:00:00 72 mm[Hg] [facility] Body temperature 2020-05-31 07:00:00 36.33 [place] [facility] Body height 2020-05-30 16:33:00 185.4 cm [facility] Body weight 2020-05-30 16:33:00 92.8 kg [facility] BMI 2020-05-30 16:33:00 26.99 kg/m2 [facility] Procedures Procedure Date / Time Performing Clinician Source Performed ELECTROCARDIOGRAM COMPLETE 2021-03-26 14:56:00 German Bran [facility] VENOUS DOPPLER LEGS 2021-02-24 12:04:00 Addie Lee [facility] REFERRAL- REQUEST/RESPONSE 2020-10-28 05:01:00 Doctor Unassigned , [facility] [place], operated by [facility] POCT-GLUCOSE METER 2020-05-31 08:18:00 Francis Stockton [facility] POCT-GLUCOSE METER 2020-05-30 21:07:00 Kath [facility] POCT-GLUCOSE METER 2020-05-30 17:05:00 [facility] POCT-GLUCOSE METER 2020-05-30 12:30:00 [facility] POCT-GLUCOSE METER 2020-05-30 08:41:[address] [facility] TSH/FREE T4 IF INDICATED 2020-05-30 08:13:00 Maxx Bharatrashad burton [facility] RPR 2020-05-30 08:13:00 Maxx [facility] VITAMIN B12 AND FOLATE 2020-05-30 08:13:00 Bharat Lilly [facility] CBC W/PLT COUNT & AUTO 2020-05-30 05:45:00 Francis Stockton [facility] BASIC METABOLIC PANEL (7) 2020-05-30 05:45:00 Francis Stockton CH, I [facility] MAGNESIUM 2020-05-30 05:45:00 Francis Stockton [facility] HEMOGLOBIN A1C 2020-05-30 05:45:00 Francis Stockton [facility] LIPID PANEL 2020-05-30 05:45:00 Bharat Lilly [facility] CBC W/PLT COUNT & AUTO 2020-05-30 05:45:00 Francis Stockton [facility] POCT-GLUCOSE METER 2020-05-29 21:23:[address] [facility] POCT-GLUCOSE METER 2020-05-29 17:39:00 [facility] GLUCOSE 2020-05-29 15:31:00 Yi Luciano [facility] POTASSIUM 2020-05-29 15:31:00 Yi Luciano [facility] LACTIC ACID, ARTERIAL 2020-05-29 15:31:00 Yi Luciano [facility] BASIC METABOLIC PANEL (7) 2020-05-29 15:31:00 Yi Luciano [facility] POCT-GLUCOSE METER 2020-05-29 13:44:00 [facility] POCT-GLUCOSE METER 2020-05-29 12:58:00 [facility] POCT-GLUCOSE METER 2020-05-29 11:40:00 [facility] XR CHEST 1 VIEW PORTABLE / 2020-05-29 11:29:00 Yi Luciano [facility] ECG 12-LEAD 2020-05-29 10:01:02 Unknown, Hl7 [facility] ECG 12-LEAD 2020-05-29 10:01:02 Unknown, Hl7 [facility] BLOOD GAS, ARTERIAL 2020-05-29 09:58:00 Juan Jose [facility] LACTIC ACID, ARTERIAL 2020-05-29 09:56:00 Juan Jose [facility] BASIC METABOLIC PANEL (7) 2020-05-29 09:56:00 Garrick Ingram [facility] CBC (HEMOGRAM ONLY) 2020-05-29 09:56:00 Juan Jose [facility] MAGNESIUM 2020-05-29 09:56:[address] [facility], [place]) BLOOD GAS, ARTERIAL 2020-05-29 09:08:16 Alessia Oliveros [facility] SODIUM NA-STAT LAB 2020-05-29 09:08:16 Oliveros, [facility] POTASSIUM-STAT LAB 2020-05-29 09:08:16 Oliveros, [facility] GLUCOSE-STAT LAB 2020-05-29 09:08:16 Oliveros, [facility] HGB/HCT (H&H) - STAT LAB 2020-05-29 09:08:16 Oliveros, [facility] RRL CRITICAL LABS 2020-05-29 09:08:16 [facility] (ABG,NA,K,H&H,GLUCOSE) Medical C enter TISSUE EXAM 2020-05-29 08:36:00 [facility] POTASSIUM-STAT LAB 2020-05-29 08:13:30 Oliveros, [facility] GLUCOSE-STAT LAB 2020-05-29 08:13:30 Oliveros, [facility] HGB/HCT (H&H) - STAT LAB 2020-05-29 08:13:30 Oliveros, [facility] RRL CRITICAL LABS 2020-05-29 08:13:30 [facility], [facility] (ABG,NA,K,H&H,GLUCOSE) Medical C enter BLOOD GAS, ARTERIAL 2020-05-29 08:13:30 Oliveros, [facility] CALCIUM, IONIZED 2020-05-29 08:13:30 Oliveros, [facility] SODIUM NA-STAT LAB 2020-05-29 08:13:30 Oliveros, [facility] ENDARTERECTOMY,CAROTID 2020-05-29 07:00:00 [facility] TYPE AND SCREEN, AUTOMATED 2020-05-29 06:47:00 [facility] POCT-GLUCOSE METER 2020-05-29 06:26:00 [facility] TYPE AND SCREEN, AUTOMATED 2020-05-21 12:40:00 DebontMelina guzman [facility] CBC W/PLT COUNT & AUTO 2020-05-21 12:40:00 DebontMelina guzman [facility] CBC W/PLT COUNT & AUTO 2020-05-21 12:40:00 Melina Walton [facility] BASIC METABOLIC PANEL (7) 2020-05-21 12:40:00 Melina Walton HI [facility] PROTHROMBIN TIME/INR 2020-05-21 12:40:00 NickyontMelina guzman [facility] ECG 12-LEAD 2020-05-21 12:15:22 DebontMelina guzman [facility] ECG 12-LEAD 2020-05-21 12:15:22 Unknown, Hl7 Doctor [facility] Plan of Care Planned Activity Planned Date Details Comments Source Future Scheduled 2023-05-31 Lipid panel (procedure) [facility] Test 00:00:00 [code = 41902445] Medical Ce nter Future Scheduled 2021-06-14 CT CHEST HIGH Expected: [facility] [employer] Test 00:00:00 RESOLUTION WO CONTRAST 06/14/2021, of Me dicine [code = 09601-5] Expires: 03/17/2022 Future Scheduled 2021-04-10 Screening for malignant [facility] Test 09:26:51 neoplasm of colon of Medicin e (procedure) [code = 608281174] Future Scheduled 2021-04-10 COVID-19 Vaccine (1) [facility] Test 09:26:51 [code = COVID-19 of Medicine Vaccine (1)] Future Scheduled 2021-04-10 TETANUS SHOT (ADULT) [employer] Test 09:26:51 [code = TETANUS SHOT of Medi cine (ADULT)] Future Scheduled 2021-04-10 BMI FOLLOW UP PLAN [employer] Test 09:26:51 [code = BMI FOLLOW UP of Med icine PLAN] Future Scheduled 2021-04-10 Hepatitis C screening [employer] Test 09:26:51 (procedure) [code = of Medic ine 843215211] Future Scheduled 2021-04-10 Screening for malignant [facility] Test 09:26:51 neoplasm of lung of Medicine (procedure) [code = 667592238] Future Scheduled 2021-04-10 ZOSTER VACCINE (1 of 2) [facility] Test 09:26:51 [code = ZOSTER VACCINE of Me dicine (1 of 2)] Future Scheduled 2021-04-10 MEDICARE AWV (Initial) [facility] Test 09:26:51 [code = MEDICARE AWV of Medi cine (Initial)] Future Scheduled 2021-04-10 Abdominal aortic [facility] Test 09:26:51 aneurysm screening of Medici ne (procedure) [code = 080622633] Future Scheduled 2021-04-10 Pneumococcal 65+ (1 of [facility] Test 09:26:51 1 - PPSV23) [code = of Medic ine Pneumococcal 65+ (1 of 1 - PPSV23)] Future Scheduled 2021-04-10 FLU VACCINE > 6 MONTHS [facility] Test 09:26:51 [code = FLU VACCINE > 6 of M edicine MONTHS] Future Scheduled 2021-04-10 FALL SCREEN [code = [facility] Test 09:26:51 FALL SCREEN] of Medicine Future Scheduled 2021-03-26 ELECTROCARDIOGRAM [facility] Test 08:55:52 COMPLETE [code = 12754] of M edicine Future Scheduled 2021-03-18 COVID-19 [...] PPSV23)] Future Scheduled 2021-03-18 INFLUENZA VACCINE [code [facility] 11:30:30 = INFLUENZA VACCINE] [facility]ospita [facility] Future Scheduled 2021-03-17 Screening for malignant [facility] Test 10:38:11 neoplasm of colon of Medicin e (procedure) [code = 027615945] Future Scheduled 2021-03-17 COVID-19 Vaccine (1) [facility] [employer] Test 10:38:11 [code = COVID-19 of Medicine Vaccine (1)] Future Scheduled 2021-03-17 TETANUS SHOT (ADULT) [facility] [employer] Test 10:38:11 [code = TETANUS SHOT of Medi cine (ADULT)] Future Scheduled 2021-03-17 BMI FOLLOW UP PLAN [facility] Test 10:38:11 [code = BMI FOLLOW UP of Med icine PLAN] Future Scheduled 2021-03-17 Hepatitis C screening [facility] Test 10:38:11 (procedure) [code = of Medic ine 542013503] Future Scheduled 2021-03-17 ZOSTER VACCINE (1 of 2) [facility] Test 10:38:11 [code = ZOSTER VACCINE of Me dicine (1 of 2)] Future Scheduled 2021-03-17 MEDICARE AWV (Initial) [facility] Test 10:38:11 [code = MEDICARE AWV of Medi cine (Initial)] Future Scheduled 2021-03-17 Abdominal aortic [facility] Test 10:38:11 aneurysm screening of Medici ne (procedure) [code = 452927168] Future Scheduled 2021-03-17 Pneumococcal 65+ (1 of B [facility] Test 10:38:11 1 - PPSV23) [code = of Medic ine Pneumococcal 65+ (1 of 1 - PPSV23)] Future Scheduled 2021-03-17 FLU VACCINE > 6 MONTHS B [facility] Test 10:38:11 [code = FLU VACCINE > 6 of M edicine MONTHS] Future Scheduled 2021-03-17 FALL SCREEN [code = [facility] Test 10:38:11 FALL SCREEN] of Medicine Future Scheduled 2021-02-15 Screening for malignant [facility] Test 18:55:07 neoplasm of colon of Medicin e (procedure) [code = 833749426] Future Scheduled 2021-02-15 Pneumococcal 65+ (1 of B [facility] Test 18:55:07 2 - PPSV23) [code = of Medic ine Pneumococcal 65+ (1 of 2 - PPSV23)] Future Scheduled 2021-02-15 COVID-19 Vaccine (1) [facility] Test 18:55:07 [code = COVID-19 of Medicine Vaccine (1)] Future Scheduled 2021-02-15 TETANUS SHOT (ADULT) [facility] Test 18:55:07 [code = TETANUS SHOT of Medi cine (ADULT)] Future Scheduled 2021-02-15 BMI FOLLOW UP PLAN [employer] Test 18:55:07 [code = BMI FOLLOW UP of Med icine PLAN] Future Scheduled 2021-02-15 Hepatitis C screening [facility] [employer] Test 18:55:07 (procedure) [code = of Medic ine 875731944] Future Scheduled 2021-02-15 ZOSTER VACCINE (1 of 2) [facility] Test 18:55:07 [code = ZOSTER VACCINE of Me dicine (1 of 2)] Future Scheduled 2021-02-15 MEDICARE AWV (Initial) [facility] [employer] Test 18:55:07 [code = MEDICARE AWV of Medi cine (Initial)] Future Scheduled 2021-02-15 Abdominal aortic [employer] Test 18:55:07 aneurysm screening of Medici ne (procedure) [code = 925814465] Future Scheduled 2021-02-15 FALL SCREEN [code = [employer] Test 18:55:07 FALL SCREEN] of Medicine Future Scheduled 2021-02-15 FLU VACCINE > 6 MONTHS [employer] Test 18:55:07 [code = FLU VACCINE > 6 of M edicine MONTHS] Future Scheduled 2021-02-12 US VENOUS LEG BILATERAL 1 Occurrences [facility] Test 09:58:15 [code = 02494] starting of Medicine 02/12/2021 until 02/12/2022 Future Scheduled 2021-02-12 COMPLETE PFT WITH 1 Occurrences [facility] Test 09:56:59 BRONCHODILATOR [code = starting of Me dicine 25842] 02/12/2021 until 02/12/2022 Future Scheduled 2021-02-12 SIX MINUTE WALK TEST 1 Occurrences [employer] Test 09:56:59 [code = 75536] starting of Medicine 02/12/2021 until 02/12/2022 Future Scheduled 2021-02-12 CT CHEST HIGH 1 Occurrences [facility] [employer] Test 09:56:59 RESOLUTION WO CONTRAST starting of Me dicine [code = 62857-8] 02/12/2021 until 02/12/2022 Diagnostic Test 2021-02-12 ECHO,COMPLETE WITH Expected: [facility] Pending 00:00:00 SALINE [code = 75299-9] 02/12/2021, of M edicine Expires: 02/12/2022 Future Scheduled [address] [facility] Test 00:00:00 WELLNESS (YEAR 2 or Medical Center FIRST YEAR if no IPPE) [code = MEDICARE ANNUAL WELLNESS (YEAR 2 or FIRST YEAR if no IPPE)] Future Scheduled [address] [facility] Test 00:00:00 WELLNESS (YEAR 2 or Medical Center FIRST YEAR if no IPPE) [code = MEDICARE ANNUAL WELLNESS (YEAR 2 or FIRST YEAR if no IPPE)] Future Scheduled 2021-02-07 FALLS RISK SCREENING [facility] Test 00:00:00 [code = FALLS RISK Medical C enter SCREENING] Future Scheduled 2021-02-[address] [facility] Test 00:00:00 (12+) [code = Medical Center DEPRESSION SCREENING (12+)] Future Scheduled 2021-02-07 FALLS RISK SCREENING [facility] Test 00:00:00 [code = FALLS RISK Medical C enter SCREENING] Future Scheduled 2021-02-[address] [facility] Test 00:00:00 (12+) [code = Medical Center DEPRESSION SCREENING (12+)] Future Scheduled 2020-10-[address] [facility] Test 00:00:00 (Season Ended) [code = Medic al Center INFLUENZA VACCINE (Season Ended)] Future Scheduled 2020-10-08 INFLUENZA VACCINE (#1) [facility] 00:00:00 [code = INFLUENZA Medical Ce nter VACCINE (#1)] Future Scheduled 2020-10-08 INFLUENZA VACCINE (#1) [facility] Test 00:00:00 [code = INFLUENZA Medical Ce nter VACCINE (#1)] Future Scheduled 2020-08-[address] [facility] Test 00:00:00 measurement (procedure) [facility] [code = 81623865] Future Scheduled 2020-08-[address] [facility] Test 00:00:00 measurement (procedure) [facility] [code = 33357802] Future Scheduled 2020-08-[address] [facility] Test 00:00:00 measurement (procedure) [facility] [code = 08435478] Future Scheduled 2020-02-09 PNEUMOCOCCAL 65+ YRS ([address] [facility] Test 00:00:00 of 1 - YANG94_Vrdylzt Medica l Center PCV13) [code = PNEUMOCOCCAL 65+ YRS (1 of 1 - RVOE50_Nndqpah PCV13)] Future Scheduled 2020-02-[address] [facility] Test 00:00:00 aneurysm screening Medical C enter (procedure) [code = 824729774] Future Scheduled 2020-02-09 PNEUMOCOCCAL 65+ YRS ([address] [facility] Test 00:00:00 of 1 - PEYY82_Vnasjeg Medica l Center PCV13) [code = PNEUMOCOCCAL 65+ YRS (1 of 1 - ZROO38_Siasmwq PCV13)] Future Scheduled 2020-02-[address] [facility] Test 00:00:00 aneurysm screening Medical C enter (procedure) [code = 694251939] Future Scheduled 2020-02-09 PNEUMOCOCCAL 65+ YRS ([address] [facility] Test 00:00:00 of 1 - BDPQ21_Ittyyxh Medica l Center PCV13) [code = PNEUMOCOCCAL 65+ YRS (1 of 1 - QNEF58_Mankvry PCV13)] Future Scheduled 2020 Medicare IPPE (WELCOME [facility] 00:00:00 TO MEDICARE) [code = Medical Center Medicare IPPE (WELCOME TO MEDICARE)] Future Scheduled 2005 SHINGLES VACCINES ([address] [facility] Test 00:00[facility]00 [facility]) [facility] Future Scheduled 2005 Screening for malignant [facility] Test 00:00:00 neoplasm of lung Medical [place] [facility] (procedure) [code = 222810661] Future Scheduled 2005 SHINGLES VACCINES ([address] [facility] Test 00:00:00 [facility]) [facility])] Future Scheduled 2005 Screening for malignant [facility] Test 00:00:00 neoplasm of lung [facility] [place] [facility] (procedure) [code = 510509265] Future Scheduled 2005 SHINGLES VACCINES ([address] [facility] Test 00:00:00 [facility]) [facility])] Future Scheduled 1974 DTAP/TDAP/TD [facility]ACCINES [facility] 00:00:00 (1 - Tdap) [code = Medical C enter DTAP/TDAP/TD VACCINES (1 - Tdap)] Future Scheduled 1974 DTAP/TDAP/TD VACCINES [facility] 00:00:00 (1 - Tdap) [code = Medical C enter DTAP/TDAP/TD VACCINES (1 - Tdap)] Future Scheduled 1974 DTAP/TDAP/TD VACCINES [facility] 00:00:00 (1 - Tdap) [code = Medical C enter DTAP/TDAP/TD VACCINES (1 - Tdap)] Future Scheduled 1973 HEPATITIS C [facility]CREENING [facility] 00:00:00 [code = HEPATITIS C Medical Center SCREENING] Future Scheduled 1973 HEPATITIS C [facility]CRE[facility]ING [facility] 00:00:00 [code = HEPATITIS C Medical Center SCREENING] Future Scheduled 1973 HEPATITIS C [facility]CRE[facility] 00:00:00 [code = HEPATITIS C Medical Center SCREENING] Future Scheduled 1967 COVID-19 VACCINE (1) [facility] Test 00:00:00 [code = COVID-[address] [place] [address] VACCINE (1)] Future Scheduled 1967 COVID-19 VACCINE (1) [facility] Test 00:00:00 [code = COVID-[address] [place] [address] VACCINE (1)] Future Scheduled 1967 COVID-19 VACCINE (1) [facility] Test 00:00:00 [code = COVID-[address] [place] [address] VACCINE (1)] Future Scheduled 1965 DIABETIC EYE EXAM [code [facility] Test 00:00:00 = DIABETIC EYE EXAM] Medical Center Future Scheduled [address] [facility] 00:[facility] examination Medical Center (regime/therapy) [code = 814134041] Future Scheduled 1965 Urine screening for [facility] Test 00:00:00 protein (procedure) Medical Center [code = 710804866] Future Scheduled 1965 DIABETIC EYE EXAM [code [facility] Test 00:00:00 = DIABETIC EYE EXAM] Medical Center Future Scheduled [address] [facility] Test 00:00:00 examination Medical Center (regime/therapy) [code = 505098071] Future Scheduled 1965 Urine screening for [facility] Test 00:00:00 protein (procedure) Medical Center [code = 753243996] Future Scheduled 1965 DIABETIC EYE EXAM [code [facility] Test 00:00:00 = DIABETIC EYE EXAM] Medical Center Future Scheduled [address] [facility] Test 00:00:00 examination Medical Center (regime/therapy) [code = 997097664] Future Scheduled 1965 Urine screening for [facility] Test 00:00:00 protein (procedure) Medical [place] [code = 460848144] Future Scheduled 1955 Screening for malignant [facility] Test 00:00:00 neoplasm of colon Medical Ce nter (procedure) [code = 902478024] Future Scheduled 1955 Screening for malignant [facility] Test 00:00:00 neoplasm of colon Medical Ce nter (procedure) [code = 480329530] Future Scheduled 1955 Screening for malignant [facility] Test 00:00:00 neoplasm of colon Medical Ce nter (procedure) [code = 258090696] Encounters Start End Encounter Admission Attending Care Care Encounter Source Date/Time Date/Time Type Type Clinicians Facility Department ID 2021-04-16 Outpatient STLMLC [facility] Common 14:41:03 [facility] 2021-03-04 Outpatient STLMLC STLMLC [id number] Common 14:28:11 [id number] [facility] 2021-03-04 Outpatient STLMLC STLC [id number] Common 14:22:49 [id number] [facility] 2020-11-[address] [facility] Surgery [id number] [facility] 13:49:41 JUSTO 2020-10-24 Outpatient SYSTEM, GUILHERME VANEGAS [id number] 13:50:10 PROVIDER Raul o n 2020-07-04 Outpatient SYSTEM, GUILHERME VANEGAS [id number] 11:35:20 PROVIDER Raul o n 2021-05-21 2021-05-21 Outpatient CAITLIN CHUY [facility] [id number] SLE 00:00:00 00:00:00 JOSE MANUEL 2021-03-26 2021-03-26 Office German Bran 1.2.840.114 [id number] [facility] 09:00:00 11:12:40 Visit P. AMBULATOR 350.1.13.21 College Y 0.2.7.2.686 of [id number] Medi renzo 370 e 2021-03-17 2021-03-17 Office MAX, BCM 1.2.840.114 [id number] [facility] 09:57:55 13:25:24 Visit DIPABEN AMBULATOR 350.1.13.21 College Y 0.2.7.2.686 of [id number] Medi renzo 315 e 2021-03-17 2021-03-17 Outpatient [facility] [id number] [facility] 08:51:36 10:58:00 Belkis guzman of Medicin e 2021-02-26 2021-02-26 Outpatient EL OSIELNER, MDA MDA [id number] 10:34:24 23:59:00 DEMETRIS hoffman 2021-02-26 2021-02-26 Outpatient EL ROXANNKEN, MDA MDA [id number] 13:18:39 14:46:25 JESSY hoffman 2021-02-26 2021-02-26 Outpatient EL OSIELNER, MDA MDA [id number] 10:33:31 10:33:31 DEMETRIS hoffman 2021-02-26 2021-02-26 Outpatient EL ARISTEO, MDA MDA [id number] 09:30:00 10:32:00 ADAM hoffman 2021-02-26 2021-02-26 Outpatient EL JOSÉ MIGUELDEXTER, MDA MDA [id number] 10:03:42 10:03:42 SILVANA hoffman 2021-02-24 2021-02-24 Outpatient ROSA, [facility] [id number] SLE 11:01:01 23:59:00 FID 2021-02-24 2021-02-24 [facility] Addie Leejeanine [facility] [id number] [facility] 11:00:00 23:59:00 En[facility] 2021-02-19 2021-02-19 Outpatient CONTRERAS BERMEO [facility] [id number] [facility] 12:24:04 15:26:11 Colleg e of Medicin e 2021-02-19 2021-02-19 Outpatient CONTRERAS BERMEO [facility] [id number] [facility] 12:23:46 15:24:53 Colleg e of Medicin e 2021-02-17 2021-02-17 Outpatient [facility] [id number] [facility] 11:37:41 11:37:41 Colleg e of Medicin e 2021-02-17 2021-02-17 Outside Ruperto, [facility] [id number] 00:[facility]00 00:00:00 Orders Alistair Stout [facility] 2021-02-13 2021-02-[address] [facility] [id number] 00:00:00 00:00:00 Orders dAdie [facility] 2021-02-12 2021-02-12 Office JAMILA LEE 1.2.840.114 [id number] [facility] 08:41:10 13:44:54 Visit FIDAA AMBULATOR 350.1.13.21 College Y 0.2.7.2.686 [id number] Medi renzo 315 e 2021-02-06 2021-02-06 Outpatient Samanta HIGGINS [facility] [id number] Univers 09:00:00 09:00:00 PRASANNA [id number] ity of [facility] 2020-12-18 2020-12-18 Outpatient Samanta JOSE [facility] [id number] Univers 10:00:00 10:00:00 AKIKO [id number] prudencioy o f [facility] 2020-12-18 2020-12-18 Outpatient Samanta JOSE [facility] [id number] Univers 10:00:00 10:00:00 [facility] 2020-12-01 2020-12-01 Outpatient LEEANNE GALEANO MDA, MDA [id number] 10:32:56 14:29:07 Raul hfofman 2020-11-24 2020-11-24 Outpatient CAITLIN VANEGAS MDA [id number] 09:08:01 23:59:00 Rauldylan hoffman 2020-11-24 2020-11-24 Outpatient EL MDA MDA [id number] MD 11:28:59 11:28:59 Raul o n 2020-11-24 2020-11-24 Outpatient EL GUILHERME MORAN MDA [id number] 09:59:02 11:13:01 [facility] Raul o n 2020-11-14 2020-11-14 Outpatient EL LEEANNE LUTHER MDA MDA [id number] 13:06:13 13:06:13 Raul o n 2020-11-14 2020-11-14 Outpatient EL MDA MDA [id number] MD 10:35:53 11:41:36 Raul o n 2020-11-08 2020-11-08 Outpatient EL MDA MDA [id number] 02:03:23 02:03:23 Raul o n 2020-10-28 2020-10-28 Orders Doctor VANDANA 1.2.840.114 [id number] 00:00:00 00:00:00 Only Unassigned, REMI 350.1.13.10 ity of [place] [facility] 4.2.7.2.686 Lencho as [id number] [place] [id number] [place] 2020-10-18 2020-10-23 Inpatient UR GUILHERME MORAN Leukemia [id number] MD 02:47:00 20:42:00 [facility] Raul o n 2020-10-22 2020-10-22 Inpatient EL MDA MDA [id number] MD 13:33:03 14:25:24 Raul o n 2020-10-22 2020-10-22 Inpatient EL MDA MDA [id number] MD 12:32:54 14:25:20 Raul o n 2020-10-20 2020-10-20 Inpatient JAILENE HU MDA MDA [id number] MD 09:52:51 10:12:28 Raul o n 2020-10-20 2020-10-20 Inpatient JAILENE HU MDA MDA [id number] MD 09:16:34 10:12:06 Raul o n 2020-10-19 2020-10-19 Inpatient JAILENE HU MDA MDA [id number] MD 22:09:29 22:20:36 Raul o n 2020-10-19 2020-10-19 Inpatient JAILENE HU MDA MDA [id number] 19:48:36 20:54:53 Raul hoffman 2020-06-23 2020-06-23 Outpatient CAITLIN SORENSEN MDA MDA [id number] 13:20:00 23:59:00 JUAN hoffman 2020-06-23 2020-06-23 Outpatient CAITLIN PARADA MDA MDA [id number] 09:30:00 13:19:00 NASEEM [place] 2020-06-23 2020-06-23 Outpatient CAITLIN MORAN MDA MDA [id number] 08:33:20 10:11:09 SILVANA hoffman 2020-06-23 2020-06-23 Outpatient CAITLIN PARADA GUILHERME MDA [id number] 06:51:35 09:29:00 NASEEM hoffman 2020-06-11 2020-06-11 Outpatient LIA [facility] [id number] [facility] 00:00:00 00:00:00 JUSTO 2020-06-03 2020-06-[address] [facility] [id number] 00:[facility] 00[facility]00 [facility] 2020-05-29 2020-05-31 Hospital LiaJusto [facility] [id number] 06:10:00 13:25:00 Encounter Francis [place] [facility] 2020-05-29 2020-05-[address] [facility] [id number] 07:20:00 10:04:00 Event Venancio Burton [facility] 2020-05-29 2020-05-29 Surgery [facility] [id number] 07:30:00 09:45:00 [facility] 2020-05-28 2020-05-28 [facility] [id number] 11:35:00 23:59:00 [facility] 2020-05-28 2020-05-28 Outpatient [facility] [id number] [facility] 00:00:00 00:00:00 2020-05-28 2020-05-28 Travel [facility] [id number] [facility] 00:[facility]00 [facility] 2020-05-28 2020-05-[address] [facility] [id number] 00:[facility] 00:00:00 Margie Dickey [facility] 2020-05-21 2020-05-[address] [facility] [id number] 11:09:30 11:24:30 Visit Justo [facility] 2020-05-21 2020-05-21 Outpatient MICHAEL ARZOLA SLE [id number] [facility] 00:00:00 00:00:00 JUSTO 2020-05-21 2020-05-[address] [facility] [id number] 00:00:00 00:00:00 Only [facility] 2020-05-21 2020-05-21 Travel [facility] [id number] [facility] 00:00:00 [facility] 2020-04-15 2020-04-15 Outpatient R TIAN [facility] [id number] -20 Univers 14:00:00 14:00:00 MARI [id number] [facility] 2020-04-15 2020-04-15 [facility] [id number] Univers 14:00:00 14:00:00 MARI [facility] 2020-01-02 2020-01-02 Outpatient CAITLIN MORAN [facility] [id number] 07:30:00 23:59:00 NAVAL Raul o n 2020-01-02 2020-01-02 Outpatient CAITLIN MORAN MDA MDA [id number] 09:20:44 10:25:29 NAVAL Raul o n 2019-12-12 2019-12-12 [facility] [id number] 00:00:00 00:00:00 Mari [place] [id number] Sana [id number] Jose [id number] nal 220 [facility] 2019-12-05 2019-12-05 Office [facility] [id number] 14:07:04 15:07:40 Visit Marjorieshweta Bro 350.1.13.10 Sana 4.2.7.2.686 Jose [id number] nal 220 [facility] 2019-12-05 2019-12-05 Outpatient [facility] [id number] -20 Univers 14:00:00 14:00:00 MARI [id number] ity [facility] 2019-12-05 2019-12-05 Outpatient [facility] [id number] Univers 14:00:00 14:00:00 MARI [facility] 2019-12-05 2019-12-05 Orders Doctor VANDANA [id number] 00:00:00 00:00:00 Only Unassigned, REMI [id number] Wyboo [facility] [id number] [id number] 2019-10-01 2019-10-01 Outpatient R [facility] [id number] -20 Univers 10:40:00 10:40:00 [id number] ity [facility] 2019-10-01 2019-10-01 [facility] [id number] Univers 10:40:00 10:40:00 NICKOLAS [facility] 2019-09-25 2019-09-25 Outpatient [facility] [id number] -[id number] Univers 11:30:00 11:30:00 MARI [id number] ity [facility] 2019-09-25 2019-09-25 Outpatient R [facility] [id number] Univers 11:30:00 11:30:00 MARJORIESHWETA ity [facility] 2019-09-05 2019-09-05 Outpatient CAITLIN PARADA [facility] MDA [id number] 10:00:00 23:59:00 NASEEM hoffman 2019-09-05 2019-09-05 Outpatient CAITLIN MORAN [facility] [id number] 09:04:44 10:45:55 SILVANA hoffman 2019-09-05 2019-09-05 Outpatient EL TAL MDA MDA [id number] 07:35:44 09:59:00 NASEEM hoffman 2019-07-10 2019-07-10 Outpatient Samanta OVERTON [facility] [id number] Univers 09:00:00 09:00:00 MARI [facility] Results Test Description Test Time Test Comments Results Result Sourc e Comments PV, VENOUS DOPPLER 2021-02-24 Reason for LEGS, BILATERAL 13:10:00 exam:->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 INDICATION: [id number] condition. COMPARISON: None. FINDINGS:The bilateral common femoral, [...] code = 104) Surgical Pathology Report Case: [id number] Authorizing Provider: Jsuto Fitzgerald, Collected: 05/29/2020 08:36 AM Ordering Location: [facility] Received: 05/29/2020 10:20 AM PERIOPERATIVE SERVICES Pathologist: Herb Ramsey MD Specimen: Plaque, Right carotid artery plaque DIAGNOSIS (test code = 3220) v5hmvJHpZPDzt6cxSVGwxWJiIoZbXaGbMaZzVs pc dWMxIHtccnRmMVxlcGljOTIwMlxhbnNpXHNwbHRw F2VhifuhHAbkXL2kTV9toBgiuUWsfITcWCBbWzMa v6mqr178qFYpq5toNCKUwjaiiZy8pWimC76lr0Q9 PpbcN48ooGTtPVwunKZaqxhhttGlDEAHDRZHPGif DHANNMUBIKSRCIgGUTMMEdRTPxKORsPKDV2ZZLnl tINtAZFHZXMWXycSGPGLXBYBG3SWWHQGM5XGUuLV MRBLBSGwkSVbYWgUEGbMJEwlAzvICdtFSEAXMh0B EwERUDCcwk99FVM5HbQbc0N0VEE2YNVsLNFgx6ny DPQvqWYaPtKaKvCfEpBcCmzozTQnJTJvMiZoh6lj d320iBRna2pvWZLpWwG3iZPuKYRniAAvJ950DADm YJsij9fua7YiQJXmuKVks7F9VVEXaicrmFx1rVgk H29uj7U3DbveQ3xlJJYoGDThE9GnIA7xHTCxBes7 HDG0LKB7MWByIAHiE5DbSP8mRCGsrMRlYFr9l4re oEowDUCuKOX6c2zwCKvvqcMfFO0pkf6tuCa6y6qt amApSWFkNLGpgALDSYFiL8QslEqhTl5lsAl0iEkd UjkfZQI2Wxc6XV1ang49qmt9aGtsPOSlnkdhUsI4 ZAjuQOGetxbfKUf6WAsyAEMylUZ9ICUrlAIvY9Gj UITcZT6dodv9CPW2MMvkPQDgZnU8MIFrdHCdZBUx bRqfLGoqs048QME2VeUgKJ8rZ9Xvj2K0mV0vgJFt QMRyeZXuZrXuEPDqup1jfPYnKKrti5GnGRS4ohH7 mWBveNPoLSEbGoB1NYlaEI3nev08QDGdBCZ4ib8x cYPmzJyaquBtnRTtUCbyJ1EjGMTba541TUCfV7Uh CHFjk5Q3arCiGvOoJTHynIN5dgZ7GLJvUP1dgclt t9vnQMalSMkuJQQfahS9jjK7TEEihRDlF4DuqR0j QIQkKB6hyfboq8lxVVB2KYvgPUUwOCL8SeBoXLKw f2Nyowp0DtUwg4MiqFDdGCppC42ux020ACPepfGi H0yxxTJlvgnkvVKolislBSynezT3SKXzWHtpqjft HXYlUFssA2sxTkUyGZNohCycTOohr7DkSLKcUXOk AqTffEGxXIDnOrs1NNUxsPXhLQMdToBiB7uyypew XvGHANYea7ucQ8hieJUAzSKiP1BlREjfohXzBDda TMmeKQRcAUG7GV46YcacRIJbmq84 CPT Code(s) (test code = 3357) l7ojpIGqBBLzwQA4NiLpBJGza9zkw1KkmVWs cGFy IJbzuHCrtlDfys22hXY0mZ56OM9oTXHfHlH6PYTm otQ4Avp0QWDtEYZyvERnI368u9hzo4iwxgHmeOK1 rHaaJBZuLWAaOLgpRONnIgGtRAalIAJ9OCk0LkId XHBhcn0= CLINICAL HISTORY (test code = 3356) z0zwnDJtWBNuoZJ9FhQhRRGgb5hgr2B sdHBncGFy SPbtjVZhwuVsxw12eWU9pR31II3uEQEzJdQ8PLBj grT5Aif1FGHtHJKgyYQvU913l5hhx5oakmLagRV5 eBocFOIrBDEnBLclWOLfJzEcH2Rior5lcKVla1Bw tprbuGAdJ3Hjg5PfZPOqdfGeyozjKSKktj9= SPECIMEN SOURCE (test code = 3377) v7prmVGkOUGbhZO3YkVvJWHhu5eeo1In dHBncGFy SDcboVKczvHqsy12cQO6cQ99PC3qPXWdDmM9YEYv idH9Olq2SJFgRYMhjRIpQ697w1wpl3xgloYjhJO7 fVxwYXJkXHBsYWluXGZzMjAgUGxhcXVlXHBhcn0= GROSS DESCRIPTION (test code = 3366) h8eypJYnEZLocQUaIrKzHKZuMOEkk5 lcZGVmbGFu [file] YXIgUGlsYXIgQXJndWVsbGVzLCBQQSwgSFQgKEFT J9RzUCNfmc4= MICROSCOPIC DESCRIPTION (test code = t5vxtAOuOVTlqDA9BeCtEPExa4jmi3 BsdHBncGFy 3371) RBrshXWnpbNhjt10gIY5wS11GW6yARXbFjY5LSIw rqY4Xmh8VDUwFHOjbUXtU217o3rue9kazaPhtRI2 zLokSLJfVUCaRZstBURdGhZyQXGdTc9gxSGgIODa cn0= [facility] [id number] 17:13:00 Test Item Value Reference Range Interpretation Comments Case Report (test code Surgical Pathology = 104) Report Case: [id number] Authorizing Provider: Justo Fitzgerald, Collected: 05/29/2020 08:36 AM Ordering Location: [facility] Received: 05/29/2020 10:20 AM PERIOPERATIVE SERVICES Pathologist: Herb Ramsey MD Specimen: Plaque, Right carotid artery plaque DIAGNOSIS (test code = e8ftwGYwLJPyt5ajDBRnpIH 3220) uZzEwMzNcZnRuYmpcdWMxIH tccnRmMVxlcGljOTIwMlxhb nCmISUzcZQhI7YcezpjJJqs GS4hNW7kkStgnVFpxKXgRNF mEhYuf7pia240yTZzp5zoWL OBtizakAb1rJplQ60hd7X0W aatO25azKVyUYwshUEfuurx czIwIEFSVEVSWSwgTEVGVCB DQVJPVElELCBFTkRBUlRFUk QDEH2LSXopaMIoIFFPKTDVX gzMPTEWWLQDC4OYPWGWQ8UR QyBQTEFRVUVccGFyIExVTUl MOVlxVkxARbtENMLFIp5DQa QLOEKamz37WTM6ArXnk3X6Y DT6LYZxHYZba6ztSNSdbCRc ZzEwMzNcZnRuYmpcdWMxXGR xZtWks7soa001eAXym4acMH FiOrZ4yKWkHTDzjQQcW238B KDyIUvea6mie8LfYOGhzYAi g0Y8YUFLveoezKy6xQllE87 yq1R7ZspuB5amKGWtFKRzC1 WhYR8pSREjImj7WTZ6TOF2H JHxJGIuG5ZkOB6mHLUvbAJs CQd0s3yklMvwREJaYEU9o0f oCFovatJxKG1ggl8bgGa2a3 xjczEgRGVmYXVsdCBQYXJhZ 3YwqDxmDx6tmQc5yEbpCiqc HSY3Rmw8EN8yeo72juj7rHf fPJLuyrotNwM1AHfkLTLvhm wuMZg3MTckJQQqqDO4KQVnt AVgC7GfNXEpYA8dmpd9ZLP4 CCdvYYDcWmY1DPXvlEKqMWN vbVteFQbum722RNR9JmVgLY 9wB5Pzk3R5zS4qeKHjYCBsw CRhWdClSDLnwq6wiMBwSAtt r8FhPFG1qbT8pBTztRJdIVX xWdF8BKitVG2ohe69HZHoSH R2cz2egYBfmEalqcIpgPRbE LleM6InKKEzf131QDOwW8Aa JQZmb4S5baLbAaFjKKCjwDY 5dcQ7SIEyGO7fewhfc1wfHS pfJNbwWZJhliV2ozI4MSKqh OAbP5PphJ7rLELqVT6furmc r1ivJFE2KZydFZXvXAW6WxB jAPMes0Uelrs3LmBsl0RvaY WgDRxsE74he976IXWvxnKrR 1xwbGFpblxwbGFpblxmMFxm ydP0XMJqKOkqhfprJBExJOs lM0kyMqVrKZUblMofMTvno4 NoXGYxXGZzMjJcdGFiXHRhY ok5HFKajIIjXMFkHtUkT9lk iyuaZcYCHILth7taX0qzsPF QzRWpS0McJLgxerDsXOrzMO ngERMgMND0AW26WrdbAZLln n19 CPT Code(s) (test code u0pipVQfNYThjCM0GtKkOKL = 3357) rm0owr6LrzIVriATdAMqfcV WbxpNghp32rHY9zV47QW7hU BWqIeM7AJWnidQ6Wue3CHGt MYWviXOsE870e6pep3whrzD vvSM0yTthLHAfRZNpUQmmDH EuYoExKEsuREX0SCi0CeTrU HBhcn0= CLINICAL HISTORY (test a3nipWKuZRUgkWE1MpScWQF code = 3356) ue7evy8OtbXPcrYHcGErznX QzhuWttt16nLE5qQ20RL9uY EBxSeT6BBZwpvE9Tzm0YOVd CVNjnZHtE191u3mjb5fprjT rvUH5yPvcTQPrDGLdBPkpRE VkPzXdU1Vtxy0ojBCgy2Oxo djmsTWgO9Ndp8JaLBQtvaPu cnkgXHBhcn0= SPECIMEN SOURCE (test b7rxmQAjIGFdfHE9ObBeIME code = 3377) if6ygu9YmzVOaeXWkTEwbgS NcmzHysh99cPI2eQ72ML7tS RYwAhA8ZPPbajI3Pte1HAXk PEKwxTOyX144n6qiz7mvnhM biAH3pXqsQYLmPGElUXmsQT ZzMjAgUGxhcXVlXHBhcn0= GROSS DESCRIPTION g6rihSGnLJTpfBXrYoNrCSR (test code = 3366) jHHBpu8qzPMVekVFePaMcDv NcZnRuYmpcdWMxXGRlZmYwe 6wch854fNDzn9duAKBwUpD8 kLYdQSMqhWGkI139z7tgz9g uxxNmcFC1PTPzKVE5GNzzrx TglmM7IZntsRFeEdY1XIxjb bMmJDzbnzDebzQtNga0NUSm H312FGN8fUayk2qvFJP4VSW fGTWbMwNtPf5skPYjD929PC LlXAXGAAHroWi9IABkguJni iSvwHXPo865O521f4lvNSIf ukNnvNdMqswtq0npJ550FNX hcGVydzEyMjQwXHBhcGVyaD V6OHHaYF6oqbguFaNuNE3by zugRlKpAD1vekn0SaPoZN2z cmdiNzIwXGhlYWRlcnkwXGZ tw8LxunfuVI9wN7Zad2J6tK 9maXRcZGVmdGFiNzIwXGZvc v0zrCZzTTthf6DpVRR8eaI1 kLYvlJJkYYPyWK12Kemwu8A gKwhjUAB4OSUmivHag3Zfj7 iuKpBzsjJzC3vqY9RgNINkG SXyDEYiTpYiwdMox3Biu7Io jPYnxZk5p9kbVENxRCZqpHt qp2cwZNA3RPFwU0T7nITjv8 joMHqbLBDiuXE8wttcGRamX EDqaiP9hidsFBwpTVSdkAP1 ytpoAHyaRVJxPjQ2dubpDXr tTPYjYHJ2JVdjk022VGX9PW xzYmtwYWdlXHBnbmNvbnRcc GduZGVjXHBsYWluXHBsYWlu XGYwXGZzMjRccWxccGxhaW5 gHeFbAqCzFQbiEK5oFJUsN6 svqEJoKORtHJIhY5hhUjPbm M1vvIbwUUrjnsSjKBHfY9Zd dmVkIGZyZXNoIGxhYmVsZWQ gdGhlIHBhdGllbnQncyBuYW 8fOLOtU1Iqh5Rhn51svrGwH mSkLIOjQVFptzwspMEjF4Dz g0FkYRNciaEhfhkpnKbjnUC zHjPyhlXeUMVtOQC6DKOvQP J6DYNgCKEcbQGwB7vnBHgdu NKyj2QtxIBzBRbgjJgvsyD1 mGK1kFHcTODsk8ItqJy9GBW hbGNpZmllZCBwbGFxdWUuIC BYSHPlCWJjcyVkhLt7TRFfY NT2sF6mdiHtyqXai4FkiHj4 wGSyKFhgZQBbBVQkoPddw0c uZyBkZWNhbGNpZmljYXRpb2 4uXHBhclxwYXIgUGlsYXIgQ XJndWVsbGVzLCBQQSwgSFQg JJWCE9EjTCMpkf9= MICROSCOPIC q6dffAUuLDLkvTR0EyXrWQA DESCRIPTION (test code zx7avu4UepHDiuGMzORuqdG = 3371) CdijTeih76fJI5vD85MC3mA JGbAvB9GOWtcmS3Gwb1QPFd CUTxoGNlR714c8kxn1byohU hfXD1sZppIWLkNCLoCXksOK UxSjArNIIkTb3qkAKoGOBtj n0= [facility] [id number] 17:13:00 Test Item Value Reference Range Interpretation Comments Case Report (test code Surgical Pathology = 104) Report Case: [id number] Authorizing Provider: Justo Fitzgerald, Collected: 05/29/2020 08:36 AM Ordering Location: [facility] Received: 05/29/2020 10:20 AM PERIOPERATIVE SERVICES Pathologist: Herb Ramsey MD Specimen: Plaque, Right carotid artery plaque DIAGNOSIS (test code = f0zuhVReIUYkl6clSZVkeVH 3220) uZzEwMzNcZnRuYmpcdWMxIH tccnRmMVxlcGljOTIwMlxhb yVjOIXprRXmQ2QflmreIQul OF3fIJ4qmYpriXDqcMZuHJC uIgXin3vhr764sRZba2hpYX TQmmsvtCn7zQrrF06de9R3F grjW35yvUCeNRzekMXbabgl czIwIEFSVEVSWSwgTEVGVCB DQVJPVElELCBFTkRBUlRFUk USFH5QQAhpuSGvSJKDMURMG fiPRIQLSELKB4MKKNITC1XL QyBQTEFRVUVccGFyIExVTUl JIZcqLyaGBydBWLODYl0XOa LGFGVpwf44GOF1LgAzt4Z4A AE8BNVuNIEae3lnHUYntSFf ZzEwMzNcZnRuYmpcdWMxXGR iTyBjh5qta187sQYpd7qcJO JoZuZ1oVLyQYTocFDlY957C SSkRYidu8ors4TbUJOtcSBt g0A0PNGXqqaowEv9qTkmI15 zh8B2EstfX2omPKQeIRWxI1 EkAT6jNAXpXhq0FDZ7KZZ8Q REkUEQzV2PnGJ9pHMMcqTLz WRj8t7vgtRsmOAAtUPP0j1x pWKjunfJkYM4cve5tnAd6z5 xjczEgRGVmYXVsdCBQYXJhZ 0RvqFdsDj9vvOe0eLfgXnuj GVG6Dzw6SD9yly29fft3nEg tNRMcpihyScT8VIkyOLEwbd waWSp3PCgoYDMzpDV1BPOha TXcV5JoUCOhOK8ijvu7ZTF4 ZZakZCCbGeO3GZFqxENdAZX zpXwhKCvdp801JIF9BtYpQY 7oQ8Olg2I1bZ2dgIAkZTJbc DFuJpHtZSHjsu1wzAXpBOig f1TsBCR1nhO2dBCgvFCvSDV lOoW8YUbzLO3xdi36NKNxIP G1ag9ahEIomQphcfPhtXMqY HotF1VdDLRwf082TJYbA2Bb XSJbe0H7cfMlThIpUJOuoJH 5wkW2EUAaXQ3fkasdb5wjHT blDPxtIGZbiuA9dyO5JXZrn AObE4YupF4bQIAlIQ5nmdcy k8sjQRE0JFblKUBaPWU4WjG fLJWwt9Zxxlo1PaTlh0VcpO LtZIbcF00sw341UEUdcpGlS 1xwbGFpblxwbGFpblxmMFxm xoW8NJUsVTplslulTKVeKMx hO7maRiUlJALtcPylWGnlr0 NoXGYxXGZzMjJcdGFiXHRhY xn1YSWylWPrWZBoAeDwM4az ubxvBwKROTTsr2prP3lcaCF SvRDxY5XoGKnivsJaZYbdAP ldEXFpQRZ7NF15IpdsJVEqb n19 CPT Code(s) (test code q6iiiQNcPPBszKH3QaEyEUK = 3357) vl0znr9UtuNSdfPYjFQdxtU TxjoEhru91pTP9cM33PK6fM PKwCxC2YRHtubM2Zlr0JSAn BTTsqNBzB014a8odj8zghuI bkIH4pHiqFQJbANEhQQlbRF RxLzMdWYopHKS3BGu9OhAcT HBhcn0= CLINICAL HISTORY (test y2ghyOIjZIRntOF1NnMaIEM code = 3356) yp2ypk1JflITclHEfAJljwT XnujKmpw06dWY8dT81ZK1eJ RBuWrP1SZItqcP3Zio6DRWf GXMwoPGzY674c9lkc0fknnJ xuLW1jUaqQNYoNFTcMZhnUM SwGaXjY1Iptr7efKDud9Imh fjjiJQlL7Kxr7PqITGxzhCr cnkgXHBhcn0= SPECIMEN SOURCE (test p0shiMRzAEKdzGZ8TeAcSIB code = 3377) ia8oqn1OfyMCkiAEfAYqsuJ QuitJtvq92uCW0vM36BZ7oH DVuTmE0HLIjgfT2Ees9QAXo YXMuzZGcR940q4uqf5doxcX dhAB1zWovPSKqVLVqBJryPB ZzMjAgUGxhcXVlXHBhcn0= GROSS DESCRIPTION q2lnwIRsTTCtiDXtDdHgKTF (test code = 3366) uIZQiq8isVNExeJMcNvExDg NcZnRuYmpcdWMxXGRlZmYwe 0awl904kFGpq2dhODMhDqO1 ySYkFWIdlKMuT117x9efi2m dixIboBX6EAUfWIO0FBzvix UhqtE2INzdxVRaNdM2CHawl dRrVBninsXufsDtLcb8KPIf A438OCW1qEdkh1rkAMT0CUG nWQBfIxKvLt8qxZJmK507IZ AuEUSOPTNafCd7QAAjidOjl rYrnBQUx626P853r5hjQPBs abJbaGaIacswy5beT328YEZ hcGVydzEyMjQwXHBhcGVyaD H6NYRrXT4jyzhuCmWmRJ0yf fgnLmXtRI3skvh3LwWbSE1j cmdiNzIwXGhlYWRlcnkwXGZ se6CpliahSL9sA9Xcb2R2lK 9maXRcZGVmdGFiNzIwXGZvc f9esYQlQOatw7LvHHJ7ciG2 rPJpnGAyEPGyJO17Ebpub6B tBthzKUI9ESPwudCwn1Epe7 ivHoZfnzUnM5smB6AdWDCbX LNaDFOsExUpysWdg0Epq6Re qIWydCy4a9jdYXNxDACivEs di9vgNZA5SSReN6F0aCBkh6 hlZKyvGFHanVJ7pumsINhmI XFccjW4mwomNKhjJGQphAE7 zvwsJVosMJGpQsV5xxnqHIi mNMMiEDJ8BUsuq172AEU4MG xzYmtwYWdlXHBnbmNvbnRcc GduZGVjXHBsYWluXHBsYWlu XGYwXGZzMjRccWxccGxhaW5 oOtZoAkMbDRfyOY3yWQBrO6 hreRHqMZMbEFYaN9bjGwVqg V6cmPxcNCmevlPvTMKeB0Zz dmVkIGZyZXNoIGxhYmVsZWQ gdGhlIHBhdGllbnQncyBuYW 9rQTFdT3Hsx5Ryy00tjpPmQ vUhFJGzCAKdvjupuMIhR0Vz l8VsPDWnuwMbzgzwfYqrnLU tBvJopaPqTEHvEED6VQEqBD C0NUYaCTQfuYDdN5bxGSfbd NWen0DdiNIeHIppsJclfxI3 hRM3sOZhMGPrk8OfyPw2XTG hbGNpZmllZCBwbGFxdWUuIC OLDPPnAASlgjXqiVy6SDUnZ WG4wY6euiCcheOhm4ParNy2 lGNsOEfwTAEwOBIncTpcc9j uZyBkZWNhbGNpZmljYXRpb2 4uXHBhclxwYXIgUGlsYXIgQ XJndWVsbGVzLCBQQSwgSFQg KHCPQ7OoEMTlyy4= MICROSCOPIC k6mkuNNlDVKlbYV4IrMjNUU DESCRIPTION (test code te8hbu1QtbHZgpYJzBVjcsL = 3371) NxclRmos29qAB0nI41UI2vU MHnJgB2IKOobcI9Vbg4JZHa UTHbnRUdI162d3xze9cpgjX dxVO1cAzvFYRuQMSnFOypUI WdQlAcMAXlPz5mtEGkBWZqi n0= [id number] 17:13:00Surgical Pathology Report Case: [id number] Authorizing Provider: Justo Fitzgerald, Collected: 05/29/2020 08:36 AM [facility]ingLocation[facility] Received: 05/29/2020 10:20 AM PERIOPERATIVE SERVICES Pathologist: Herb Ramsey MD Specimen: Plaque, Right carotid artery plaque ARTERY, LEFT CAROTID, ENDARTERECTOMY:CALCIFIC ATHEROSCLEROTIC PLAQUELUMINAL FIBRIN THROMBUS Signing Pathologist Direct Phone Line: [phone] signed by Herb Ramsey MD on 06/03/2020 at 5:13 [id number]; [id number] of right carotid artery PlaqueReceived fresh labeled the patient's name, accession number and "right carotid artery plaque" is a 2.0 x 2.4 x 0.4 cm aggregate of ross-yellow tubular, focally calcified plaque. Clerical Supervisor sections are submitted in A1 following decalcification.ANA Velázquez, HT (ASCP)PerformedPOC-Glucose [id number] 18:38:00 Test Item Value Reference Range Interpretation Comments POC-Glucose Meter (test 221 mg/dL 70-110 H : TE STED AT [facility] code = 1538) 20 [facility], 770 30: Curtain Mender/Techni yu ID = [id number] for Renetta Mcpherson on Lab Interpretation (test Abnormal code = 50803-7) [facility] [id number] 18:38:00 Test Item Value Reference Range Interpretation Comments POC-Glucose Meter (test 221 mg/dL 70-110 H : TE STED AT [facility] code = 1538) 6720 [facility], 770 30: Curtain Mender/Techni yu ID = [id number] for Renetta Mcpherson on Lab Interpretation (test Abnormal code = 49739-5) [facility] [id number] 18:38:00 Test Item Value Reference Range Interpretation Comments POC-Glucose Meter (test 221 mg/dL 70-110 H : TE STED AT [facility] code = 1538) 67[address] [facility], 770 30: Curtain Mender/Techni yu ID = [id number] for Renetta Mcpherson on Lab Interpretation (test Abnormal code = 45067-5) [facility] [id number] 18:38:00 Test Item Value Reference Range Interpretation Comments POC-GLUCOSE METER 221 mg/dL 70-110 H : TESTED A T [facility] 6720 (BEAKER) (test code = [facility], 1538) [address]: Curtain Mender/Techni yu ID = [id number] for Noel Hansen ECG 12 [id number] 08:37:12Interface, External Ris In - 06/01/2020 3:14 PM CDTVentricular Rate 70 BPMAtrial Rate 70 BPMP-R Interval 174 msQRS Duration 112 msQ-T Interval 438 msQTC Calculation(Bazett) 473 msP [place] 47 degreesR [place] -42 degreesT [place] 120 degreesNormal sinus rhythm with sinus arrhythmiaLeft atrial enlargementLeft axis deviationInferior infarct (cited on or before 17-AUG-2017)Anterior infarct (cited on or before 22-AUG-2017)T wave abnormality, consider lateral ischemiaAbnormal ECGWhen compared with ECG of 21-MAY-2020 12:15,Premature ventricular complexes are no longer PresentQRS axis Shifted leftT wave inversionno longer evident in Inferior leadsT wave inversion less evident in Lateral leadsConfirmed by MD Viraj, Curt ([id number]) on 05/31/2020 8:37:11 [facility] [id number] 21:19:00 Test Item Value Reference Range Interpretation Comments POC-GLUCOSE METER 246 mg/dL 70-110 H : TESTED A T [facility] 6720 (BEAKER) (test code = [facility], 1538) [address]: Curtain Mender/Techni yu ID = [id number] for GABBY GREGGMEG P[place]O POCT-GLUCOSE [id number] 17:21:00 Test Item Value Reference Range Interpretation Comments POC-GLUCOSE METER 197 mg/dL 70-110 H : TESTED A T [facility] 6720 (BEAKER) (test code = [place], 1538) [address]: Curtain Mender/Techni yu ID = [id number] for Danna Echevarria POCT-GLUCOSE [id number] 12:47:00 Test Item Value Reference Range Interpretation Comments POC-GLUCOSE METER 239 mg/dL 70-110 H : TESTED A T [facility] 6720 (BELEM) (test code = [facility], 1538) [address]: Curtain Mender/Techni yu ID = [id number] for KRISTINE BEAL [id number] 10:57:00 Test Item Value Reference Range Interpretation Comments RPR (test code = 03019-6) Nonreactive Nonreactive Lab Interpretation (test code = Normal 08484-7) [facility] 10:57:00 Test Item Value Reference Range Interpretation Comments RPR (test code = 36267-4) Nonreactive Nonreactive Lab Interpretation (test code = Normal 43339-8) [facility] 10:57:00 Test Item Value Reference Range Interpretation Comments RPR (test code = 20220-7) Nonreactive Nonreactive Lab Interpretation (test code = Normal 35049-4) [facility] 10:57:00 Test Item Value Reference Range Interpretation Comments RPR SCREEN (BELEM) (test code = Nonreactive Nonreactive 420) TSH/Free T4 If [id number] 09:20:00 Test Item Value Reference Range Interpretation Comments TSH (test code = 0.460 See_Comment [Automated 58723-4) message] The system which generated this result transmit david reference range : 0.350 - 4.940 uIU/mL. The reference range was not used to interpret this result as normal/abnormal . JENNA (test code = JENNA) Curtain Mender ID - JAILENE C Lab Interpretation Normal (test code = 71131-8) [facility] DiegoVitamin B12 and [id number] 09:20:00 Test Item Value Reference Range Interpretation Comments Vitamin B12 (test 378 pg/mL 213-816 code = 2132-9) Folate (test code = 7.40 ng/mL See_Comment [Automa david 2284-8) message] The system which generated this result transmit david reference range : >=7.00. The reference range was not used to interpret this result as normal/abnormal . JENNA (test code = JENNA) Curtain Mender ID - JAILENE C Lab Interpretation Normal (test code = 18884-1) [facility]Free T4 If [id number] 09:20:00 Test Item Value Reference Range Interpretation Comments TSH (test code = 0.460 See_Comment [Automated 64705-1) message] The system which generated this result transmit david reference range : 0.350 - 4.940 uIU/mL. The reference range was not used to interpret this result as normal/abnormal . JENNA (test code = JENNA) Curtain Mender ID - JAILENE C Lab Interpretation Normal (test code = 99458-4) [facility] Diego[facility]it[facility] B12 and [id number] 09:20:00 Test Item Value Reference Range Interpretation Comments Vitamin B12 (test 378 pg/mL 213-816 code = 2132-9) Folate (test code = 7.40 ng/mL See_Comment [Automa david 2284-8) message] The system which generated this result transmit david reference range : >=7.00. The reference range was not used to interpret this result as normal/abnormal . JENNA (test code = JENNA) Curtain Mender ID - JAILENE C Lab Interpretation Normal (test code = 17248-7) [facility] DiegoTS/Free T4 If [id number] 09:20:00 Test Item Value Reference Range Interpretation Comments TSH (test code = 0.460 See_Comment [Automated 80385-2) message] The system which generated this result transmit david reference range : 0.350 - 4.940 uIU/mL. The reference range was not used to interpret this result as normal/abnormal . JENNA (test code = JENNA) Curtain Mender ID - JAILENE C Lab Interpretation Normal (test code = 44809-0) [facility] DiegoVitamin B12 and [id number] 09:20:00 Test Item Value Reference Range Interpretation Comments Vitamin B12 (test 378 pg/mL 213-816 code = 2132-9) Folate (test code = 7.40 ng/mL See_Comment [Automa david 2284-8) message] The system which generated this result transmit david reference range : >=7.00. The reference range was not used to interpret this result as normal/abnormal . JENNA (test code = JENNA) Curtain Mender ID - JAILENE C Lab Interpretation Normal (test code = 44036-8) [facility]/FREE T4 IF [id number] 09:20:00 Test Item Value Reference Range Interpretation Comments THYROID STIMULATING HORMONE 0.460 uIU/mL 0.350-4.940 (BEAKER) (test code = 772) Curtain Mender ID - JAILENE CVITAMIN B12 AND [id number] 09:20:00 Test Item Value Reference Range Interpretation Comments VITAMIN B12 (AKER) 378 pg/mL 213-816 (test code = 774) FOLATE ([facility]) 7.40 ng/mL See_Comment [Automated message] (test code = 362) The system which generated this result transmitted ref erence range: >=7.00. The reference range was not used to interpr et this result as normal/abnormal . Curtain Mender ID - JAILENE CPOCT-GLUCOSE [id number] 08:53:00 Test Item Value Reference Range Interpretation Comments POC-GLUCOSE METER 261 mg/dL 70-110 H : TESTED A T [facility] 6720 (BEAKER) (test code = [facility] [place] [facility], 1538) [address]: Curtain Mender/Techni yu ID = [id number] for KRISTINE BEAL Hemoglobin [id number] 08:39:00 Test Item Value Reference Range Interpretation Comments Hemoglobin A1C (test code = 4548-4) 14.5 % 4.3-6.1 H Lab Interpretation (test code = Abnormal 42423-8) [facility] [id number] 08:39:00 Test Item Value Reference Range Interpretation Comments Hemoglobin A1C (test code = 4548-4) 14.5 % 4.3-6.1 H Lab Interpretation (test code = Abnormal 25512-1) [facility] [id number] 08:39:00 Test Item Value Reference Range Interpretation Comments Hemoglobin A1C (test code = 4548-4) 14.5 % 4.3-6.1 H Lab Interpretation (test code = Abnormal 46324-7) [facility] DiegoHEMOGLOBIN [id number] 08:39:00 Test Item Value Reference Range Interpretation Comments HEMOGLOBIN A1C (BEAKER) (test code = 14.5 % 4.3-6.1 H 368) Lipid [id number] 07:49:00 Test Item Value Reference Range Interpretation Comments Triglycerides (test 221 mg/dL Specimen code = 2571-8) slightly hemolyzed Cholesterol (test 215 mg/dL Specimen code = 3-3) slightly hemolyzed HDL (test code = 30 mg/dL 2084-10) LDL Calculated (test 141 mg/dL code = 95113-1) JENNA (test code = Triglyceride JENNA) Reference Range: Low Risk <150 Borderline 150-199 High Risk 200-499 Very High Risk >=500 Cholesterol Reference Range: Low Risk <200 Borderline 200-239 High Risk >240 HDL Cholesterol Reference Range: Low Risk >=60 High Risk <40 LDL Cholesterol Reference Range: Optimal <100 Near Optimal 100-129 Borderline 130-159 High 160-189 Very High >=190 Curtain Mender [facility] [id number] 07:49:00 Test Item Value Reference Range Interpretation Comments Triglycerides (test 221 mg/dL Specimen code = 2571-8) slightly hemolyzed Cholesterol (test 215 mg/dL Specimen code = 2092-3) slightly hemolyzed HDL (test code = 30 mg/dL 2084-10) LDL Calculated (test 141 mg/dL code = 67952-6) JENNA (test code = Triglyceride JENNA) Reference Range: Low Risk <150 Borderline 150-199 High Risk 200-499 Very High Risk >=500 Cholesterol Reference Range: Low Risk <200 Borderline 200-239 High Risk >240 HDL Cholesterol Reference Range: Low Risk >=60 High Risk <40 LDL Cholesterol Reference Range: Optimal <100 Near Optimal 100-129 Borderline 130-159 High 160-189 Very High >=190 Curtain [facility]ender [facility] [id number] 07:49:00 Test Item Value Reference Range Interpretation Comments Triglycerides (test 221 mg/dL Specimen code = 2571-8) slightly hemolyzed Cholesterol (test 215 mg/dL Specimen code = 3-3) slightly hemolyzed HDL (test code = 30 mg/dL 9) LDL Calculated (test 141 mg/dL code = 07812-9) JENNA (test code = Triglyceride JENNA) Reference Range: Low Risk <150 Borderline 150-199 High Risk 200-499 Very High Risk >=500 Cholesterol Reference Range: Low Risk <200 Borderline 200-239 High Risk >240 HDL Cholesterol Reference Range: Low Risk >=60 High Risk <40 LDL Cholesterol Reference Range: Optimal <100 Near Optimal 100-129 Borderline 130-159 High 160-189 Very High >=190 Curtain Mender ID - [facility] MANN[facility] [id number] 07:49:00 Test Item Value Reference Range Interpretation [...] Borderline 130-159 High 160-189 Very High >=190 Curtain Mender ID - EDASIBasic Metabolic [id number] 07:08:00 Test Item Value Reference Range Interpretation Comments Sodium (test code = 138 meq/L 262-517 6043-2) Potassium (test code = 4.3 meq/L 3.5-5.1 Speci men slightly 2823-3) hemolyzed Chloride (test code = 103 meq/L 98-107 5-0) CO2 (test code = 27 meq/L 22-29 8-9) BUN (test code = 12 mg/dL 7-21 3094-0) Creatinine (test code 0.89 mg/dL 0.57-1.25 Specim en slightly = 2160-0) hemolyzed Glucose (test code = 268 mg/dL 70-105 H 2345-7) Calcium (test code = 8.5 mg/dL 8.4-10.2 83530-1) EGFR (test code = 86 mL/min/1.[place] [address]-0) NOT ACCURATE CREATININE CLEARANCE IN PREDICTING GLOMERULAR FILTRATION RATE . ESTIMATED GFR I S NOT APPLICABLE FOR DIALYSIS PATIENTS. JENNA (test code = JENNA) Curtain Mender ID - EDASI Lab Interpretation Abnormal (test code = 55784-3) [facility] Test Item Value Reference Range Interpretation Comments Magnesium (test code = 1.7 mg/dL 1.6-2.6 Speci men 55062-8) slightly hemolyzed JENNA (test code = JENNA) Curtain Mender ID - EDASI Lab Interpretation Normal (test code = 36627-9) [facility] Metabolic [id number] 07:08:00 Test Item Value Reference Range Interpretation Comments Sodium (test code = 138 meq/L 027-159 7145-2) Potassium (test code = 4.3 meq/L 3.5-5.1 [...] Calcium (test code = 8.5 mg/dL 8.4-10.2 25352-0) EGFR (test code = 86 mL/min/1.[place] [address]-7) NOT ACCURATE CREATININE CLEARANCE IN PREDICTING GLOMERULAR FILTRATION RATE . ESTIMATED GFR I S NOT APPLICABLE FOR DIALYSIS PATIENTS. JENNA (test code = JENNA) Curtain Mender ID - EDASI Lab Interpretation Abnormal (test code = 46949-8) [facility] 07:08[facility]00 Test Item Value Reference Range Interpretation Comments Magnesium (test code = 1.7 mg/dL 1.6-2.6 Speci men 19077-3) slightly hemolyzed JENNA (test code = JENNA) Curtain Mender ID - EDASI Lab Interpretation Normal (test code = 44114-6) [facility] Metabolic [id number] 07:08:00 Test Item Value Reference Range Interpretation Comments Sodium (test code = 138 meq/L 701-301 0348-2) Potassium (test code = 4.3 meq/L 3.5-5.1 Speci men slightly 2823-3) hemolyzed Chloride (test code = 103 meq/L 98-107 5-0) CO2 (test code = 27 meq/L -8-9) BUN (test code = 12 mg/dL 7-21 3094-0) Creatinine (test code 0.89 mg/dL 0.57-1.25 Specim en slightly = 2160-0) hemolyzed Glucose (test code = 268 mg/dL 70-105 H 2345-7) Calcium (test code = 8.5 mg/dL 8.4-10.2 46081-4) EGFR (test code = 86 mL/min/1.[place] [address]-4) NOT ACCURATE CREATININE CLEARANCE IN PREDICTING GLOMERULAR FILTRATION RATE . ESTIMATED GFR I S NOT APPLICABLE FOR DIALYSIS PATIENTS. JENNA (test code = JENNA) Curtain Mender ID - EDASI Lab Interpretation Abnormal (test code = 60841-3) [facility] 07:08:00 Test Item Value Reference Range Interpretation Comments Magnesium (test code = 1.7 mg/dL 1.6-2.6 Speci men 90565-5) slightly hemolyzed JENNA (test code = JENNA) Curtain Mender ID - EDASI Lab Interpretation Normal (test code = 63054-9) [facility] Test Item Value Reference Range Interpretation Comments MAGNESIUM (BEAKER) 1.7 mg/dL 1.6-2.6 Specimen slightly (test code = 627) hemolyzed Curtain Mender ID - EDASIBASIC METABOLIC [id number] 07:08:00 Test Item Value Reference Range Interpretation Comments SODIUM (BEAKER) 138 meq/L 136-145 (test code = 381) POTASSIUM (BEAKER) 4.3 meq/L 3.5-5.1 Specimen slightly (test code = 379) hemolyzed CHLORIDE (BEAKER) 103 meq/L 98-107 (test code = 382) CO2 (BEAKER) (test 27 meq/L code = 355) BLOOD UREA NITROGEN 12 mg/dL - (BEAKER) (test code = 354) CREATININE (BEAKER) [...] S NOT APPLICABLE FOR DIALYSIS PATIEN TS. Curtain Mender ID - EDASICBC with platelet count + automated [id number] 06:33:00 Test Item Value Reference Range Interpretation Comments WBC (test code = 6690-2) 10.7 See_Comment H [A utomated message] The system frenting generated this result transmitted ref erence range: 3.5 - 10 .5 K/L. The refe rence range was not u sed to interpret this result as normal/abnor mal. RBC (test code = 789-8) 5.20 See_Comment [Au tomated message] The system frenting generated this result transmitted ref erence range: 4.63 - 6 .08 M/L. The refe rence range was not u sed to interpret this result as normal/abnor mal. MCHC (test code = 786-4) 32.6 See_Comment [A utomated message] The system frenting generated this result transmitted ref erence range: [...] L [Aut omated message] 777-3) The system frenting generated this result transmitted ref erence range: 150 - 45 0 K/CU MM. The referen ce range was not u sed to interpret this result as normal/abnor mal. MPV (test code = 11.7 fL 9.4-12.4 76807-2) nRBC (test code = 413) 0 See_Comment [Aut omated message] The system frenting generated this result transmitted ref erence range: [...] H [Aut omated message] 670) The system frenting generated this result transmitted ref erence range: 1.78 - 5 .38 K/L. The refe rence range was not u sed to interpret this result as normal/abnor mal. # Lymphs (test code = 2.96 See_Comment [Auto mated message] 414) The system frenting generated this result transmitted ref erence range: 1.32 - 3 .57 K/L. The refe rence range was not u sed to interpret this result as normal/abnor mal. # Monos (test code = 0.58 See_Comment [Autom ated message] 415) The system frenting generated this result transmitted ref erence range: 0.30 - 0 .82 K/L. The refe rence range was not u sed to interpret this result as normal/abnor mal. # Eos (test code = 416) 0.20 See_Comment [Au tomated message] The system frenting generated this result transmitted ref erence range: 0.04 - 0 .54 K/L. The refe rence range was not u sed to interpret this result as normal/abnor mal. # Baso (test code = 417) 0.05 See_Comment [A utomated message] The system frenting generated this result transmitted ref erence range: 0.01 - 0 .08 K/L. The refe rence range was not u sed to interpret this result as normal/abnor mal. Immature 0 % 0-1 Granulocytes-Relative (test code = 2801) Lab Interpretation (test Abnormal code = 80181-3) [facility] + automated [id number] 06:33:00 Test Item Value Reference Range Interpretation Comments WBC (test code = 6690-2) 10.7 See_Comment H [A utomated message] The system frenting generated this result transmitted ref erence range: 3.5 - 10 .5 K/L. The refe rence range was not u sed to interpret this result as normal/abnor mal. RBC (test code = 789-8) 5.20 See_Comment [Au tomated message] The system frenting generated this result transmitted ref erence range: 4.63 - 6 .08 M/L. The refe rence range was not u sed to interpret this result as normal/abnor mal. MCHC (test code = 786-4) 32.6 See_Comment [A utomated message] The system frenting generated this result transmitted ref erence range: [...] L [Aut omated message] 777-3) The system frenting generated this result transmitted ref erence range: 150 - 45 0 K/CU MM. The referen ce range was not u sed to interpret this result as normal/abnor mal. MPV (test code = 11.7 fL 9.4-12.4 51725-5) nRBC (test code = 413) 0 See_Comment [Aut omated message] The system frenting generated this result transmitted ref erence range: [...] H [Aut omated message] 670) The system frenting generated this result transmitted ref erence range: 1.78 - 5 .38 K/L. The refe rence range was not u sed to interpret this result as normal/abnor mal. # Lymphs (test code = 2.96 See_Comment [Auto mated message] 414) The system frenting generated this result transmitted ref erence range: 1.32 - 3 .57 K/L. The refe rence range was not u sed to interpret this result as normal/abnor mal. # Monos (test code = 0.58 See_Comment [Autom ated message] 415) The system frenting generated this result transmitted ref erence range: 0.30 - 0 .82 K/L. The refe rence range was not u sed to interpret this result as normal/abnor mal. # Eos (test code = 416) 0.20 See_Comment [Au tomated message] The system frenting generated this result transmitted ref erence range: 0.04 - 0 .54 K/L. The refe rence range was not u sed to interpret this result as normal/abnor mal. # Baso (test code = 417) 0.05 See_Comment [A utomated message] The system frenting generated this result transmitted ref erence range: 0.01 - 0 .08 K/L. The refe rence range was not u sed to interpret this result as normal/abnor mal. Immature 0 % 0-1 Granulocytes-Relative (test code = 2801) Lab Interpretation (test Abnormal code = 43971-0) [facility] with platelet count + automated [id number] 06:33:00 Test Item Value Reference Range Interpretation Comments WBC (test code = 6690-2) 10.7 See_Comment H [A utomated message] The system frenting generated this result transmitted ref erence range: 3.5 - 10 .5 K/L. The refe rence range was not u sed to interpret this result as normal/abnor mal. RBC (test code = 789-8) 5.20 See_Comment [Au tomated message] The system [employer] generated this result transmitted ref erence range: 4.63 - 6 .08 M/L. The refe rence range was not u sed to interpret this result as normal/abnor mal. MCHC (test code = 786-4) 32.6 See_Comment [A utomated message] The system [employer] generated this result transmitted ref erence range: [...] L [Aut omated message] 777-3) The system frenting generated this result transmitted ref erence range: 150 - 45 0 K/CU MM. The referen ce range was not u sed to interpret this result as normal/abnor mal. MPV (test code = 11.7 fL 9.4-12.4 07243-2) nRBC (test code = 413) 0 See_Comment [Aut omated message] The system frenting generated this result transmitted ref erence range: [...] H [Aut omated message] 670) The system frenting generated this result transmitted ref erence range: 1.78 - 5 .38 K/L. The refe rence range was not u sed to interpret this result as normal/abnor mal. # Lymphs (test code = 2.96 See_Comment [Auto mated message] 414) The system frenting generated this result transmitted ref erence range: 1.32 - 3 .57 K/L. The refe rence range was not u sed to interpret this result as normal/abnor mal. # Monos (test code = 0.58 See_Comment [Autom ated message] 415) The system frenting generated this result transmitted ref erence range: 0.30 - 0 .82 K/L. The refe rence range was not u sed to interpret this result as normal/abnor mal. # Eos (test code = 416) 0.20 See_Comment [Au tomated message] The system frenting generated this result transmitted ref erence range: 0.04 - 0 .54 K/L. The refe rence range was not u sed to interpret this result as normal/abnor mal. # Baso (test code = 417) 0.05 See_Comment [A utomated message] The system frenting generated this result transmitted ref erence range: 0.01 - 0 .08 K/L. The refe rence range was not u sed to interpret this result as normal/abnor mal. Immature 0 % 0-1 Granulocytes-Relative (test code = 2801) Lab Interpretation (test Abnormal code = 77906-9) [facility] W/PLT COUNT & AUTO [id number] 06:33:00 Test Item Value Reference Range Interpretation [...] PERCENT (BEAKER) (test code = 2801) POCT-GLUCOSE [id number] 21:35:00 Test Item Value Reference Range Interpretation Comments POC-GLUCOSE METER 212 mg/dL 70-110 H : TESTED A T [facility] 6720 (BEAKER) (test code = [facility], 1538) 87191: Curtain Mender/Techni yu ID = [id number] for DELMER BEEBE SE POCT-GLUCOSE [id number] 17:51:00 Test Item Value Reference Range Interpretation Comments POC-GLUCOSE METER 238 mg/dL 70-110 H : TESTED A T [facility] 6720 (BEAKER) (test code = [facility], 1538) 79686: Curtain Mender/Techni yu ID = [id number] for PH SHELBY MONTES BASIC METABOLIC [id number] 17:13:00 Test Item Value Reference Range Interpretation [...] S NOT APPLICABLE FOR DIALYSIS PATIEN TS. Curtain Mender ID - [id number] 16:00:00 Test Item Value Reference Range Interpretation Comments Glucose (test code = 2345-7) 233 mg/dL 70-105 H JENNA (test code = JENNA) Curtain Mender ID - DB Lab Interpretation (test Abnormal code = 36401-8) [facility]-[id number] 16:00:00 Test Item Value Reference Range Interpretation Comments Potassium (test code = 5.1 meq/L 3.5-5.1 Speci men 2823-3) markedly hemolyzed JENNA (test code = JENNA) Curtain Mender ID - DB Lab Interpretation Normal (test code = 64043-5) [facility]-[id number] 16:00:00 Test Item Value Reference Range Interpretation Comments Glucose (test code = 2345-7) 233 mg/dL 70-105 H JENNA (test code = JENNA) Curtain Mender ID - DB Lab Interpretation (test Abnormal code = 11785-1) [facility]-[id number] 16:00:00 Test Item Value Reference Range Interpretation Comments Potassium (test code = 5.1 meq/L 3.5-5.1 Speci men 2823-3) markedly hemolyzed JENNA (test code = JENNA) Curtain Mender ID - DB Lab Interpretation Normal (test code = 22959-2) [facility]-[id number] 16:00:00 Test Item Value Reference Range Interpretation Comments Glucose (test code = 2345-7) 233 mg/dL 70-105 H JENNA (test code = JENNA) Curtain Mender ID - DB Lab Interpretation (test Abnormal code = 88450-9) [facility]assium-[id number] 16:00:00 Test Item Value Reference Range Interpretation Comments Potassium (test code = 5.1 meq/L 3.5-5.1 Speci men 2823-3) markedly hemolyzed JENNA (test code = JENNA) Curtain Mender ID - DB Lab Interpretation Normal (test code = 69423-2) [facility]UM2021-04-22 16:00:00 Test Item Value Reference Range Interpretation Comments POTASSIUM (BEAKER) 5.1 meq/L 3.5-5.1 Specimen markedly (test code = 379) hemolyzed Curtain Mender ID - [id number] 16:00:00 Test Item Value Reference Range Interpretation Comments GLUCOSE RANDOM (BEAKER) (test code 233 mg/dL 70-105 H = 652) Curtain Mender ID - DBLactic Acid, [id number] 15:58:00 Test Item Value Reference Range Interpretation Comments Lactate, Art (test 1.6 mmol/L 0.5-2.2 Specimen code = 2874) slightly hemolyzed JENNA (test code = JENNA) Curtain Mender ID - DB Lab Interpretation Normal (test code = 33108-9) [facility], [id number] 15:58:00 Test Item Value Reference Range Interpretation Comments Lactate, Art (test 1.6 mmol/L 0.5-2.2 Specimen code = 2874) slightly hemolyzed JENNA (test code = JENNA) Curtain Mender ID - DB Lab Interpretation Normal (test code = 50293-5) [facility], [id number] 15:58:00 Test Item Value Reference Range Interpretation Comments Lactate, Art (test 1.6 mmol/L 0.5-2.2 Specimen code = 2874) slightly hemolyzed JENNA (test code = JENNA) Curtain Mender ID - DB Lab Interpretation Normal (test code = 74638-0) [facility] Diego[facility]CTIC ACID, [id number] 15:58:00 Test Item Value Reference Range Interpretation Comments LACTATE BLOOD 1.6 mmol/L 0.5-2.2 Specimen sligh tly ARTERIAL (2) (BEAKER) hemoly zed (test code = 2874) Curtain Mender ID - DBPOCT-GLUCOSE [id number] 13:56:00 Test Item Value Reference Range Interpretation Comments POC-GLUCOSE METER 264 mg/dL 70-110 H : TESTED A T [facility] 6720 (BEAKER) (test code = [facility], 1538) 55648: Curtain Mender/Techni yu ID = [id number] for EL LINGER, MARY BETH POCT-GLUCOSE [id number] 13:10:00 Test Item Value Reference Range Interpretation Comments POC-GLUCOSE METER 302 mg/dL 70-110 H : TESTED A T [facility] 6720 (BEAKER) (test code = [facility], 1538) 25910: Curtain Mender/Techni yu ID = [id number] for EL LINGER, MARY BETH POCT-GLUCOSE [id number] 13:10:00 Test Item Value Reference Range Interpretation Comments POC-GLUCOSE METER 388 mg/dL 70-110 H : TESTED A T [facility] 6720 (Simple TitheAKER) (test code = [facility], 1538) 56885: Curtain Mender/Techni yu ID = [id number] for EL LINGER, MARY BETH RAD, CHEST, 1 VIEW, NON [id number] 11:52:00Reason for exam:->s/[facility] : 1955 Sex: MFINAL REPORT RAD, CHEST, 1 VIEW, NON DEPT INDICATION: s/p cv surgery COMPARISON: Prior day's exam FINDINGS: Portable frontal view of the chest. IMPRESSION: Support Lines: Pacer device Lungs and pleura: Mild diffuse interstitial thickening is unchanged. No pneumothorax.Heart and mediastinum: Stable contours.Additional findings: None. Signed: Alayna Gomez Verified Date/Time: 05/29/2020 11:52:15 Reading Location: [facility] Reading Room XR chest 1 view portable / [id number] 11:52:00 Interface, External Ris In - 05/29/2020 11:54 AM CDTFINAL REPORT RAD, CHEST, 1 VIEW, NON DEPT INDICATION: s/p cv surgery COMPARISON: Prior day's exam FINDINGS: Portable frontal view of the chest. IMPRESSION: Support Lines: Pacer device Lungs and pleura: Mild diffuse interstitial thickening is unchanged. No pneumothorax.Heart and mediastinum: Stable contours.Additional findings: None. Signed: Alayna Gomez Verified Date/Time: 05/29/2020 11:52:15 Reading Location:[facility] Reading [facility] [id number] 10:38:00 Test Item Value Reference Range Interpretation [...] S NOT APPLICABLE FOR DIALYSIS PATIEN TS. Curtain Mender ID - RJ [id number] 10:33:00 Test Item Value Reference Range Interpretation Comments MAGNESIUM (BEAKER) 1.7 mg/dL 1.6-2.6 Specimen slightly (test code = 627) hemolyzed Curtain Mender ID - RJ MLACTIC ACID, [id number] 10:30:00 Test Item Value Reference Range Interpretation Comments LACTATE BLOOD 2.4 mmol/L 0.5-2.2 H Specimen sligh tly ARTERIAL (2) (BEAKER) hemoly zed (test code = 2874) Curtain Mender ID - MARY FCBC (Hemogram only)2020-05-29 10:24:00 Test Item Value Reference Range Interpretation Comments WBC (test code = 6690-2) 13.3 See_Comment H [A utomated message] The system frenting generated this result transmitted ref erence range: 3.5 - 10 .5 K/L. The refe rence range was not u sed to interpret this result as normal/abnor mal. RBC (test code = 789-8) 5.52 See_Comment [Au tomated message] The system frenting generated this result transmitted ref erence range: 4.63 - 6 .08 M/L. The refe rence range was not u sed to interpret this result as normal/abnor mal. MCHC (test code = 786-4) 33.1 See_Comment [A utomated message] The system frenting generated this result transmitted ref erence range: [...] See_Comment [Aut omated message] 777-3) The system frenting generated this result transmitted ref erence range: 150 - 45 0 K/CU MM. The referen ce range was not u sed to interpret this result as normal/abnor mal. MPV (test code = 11.4 fL 9.4-12.4 41756-2) nRBC (test code = 413) 0 See_Comment [Aut omated message] The system frenting generated this result transmitted ref erence range: 0 - 0 /1 00 WBC. The refere nce range was not u sed to interpret this result as normal/abnor mal. Lab Interpretation (test Abnormal code = 35138-1) [facility]2020-05-29 10:24:00 Test Item Value Reference Range Interpretation Comments WBC (test code = 6690-2) 13.3 See_Comment H [A utomated message] The system frenting generated this result transmitted ref erence range: 3.5 - 10 .5 K/L. The refe rence range was not u sed to interpret this result as normal/abnor mal. RBC (test code = 789-8) 5.52 See_Comment [Au tomated message] The system frenting generated this result transmitted ref erence range: 4.63 - 6 .08 M/L. The refe rence range was not u sed to interpret this result as normal/abnor mal. MCHC (test code = 786-4) 33.1 See_Comment [A utomated message] The system frenting generated this result transmitted ref erence range: [...] See_Comment [Aut omated message] 777-3) The system frenting generated this result transmitted ref erence range: 150 - 45 0 K/CU MM. The referen ce range was not u sed to interpret this result as normal/abnor mal. MPV (test code = 11.4 fL 9.4-12.4 26435-8) nRBC (test code = 413) 0 See_Comment [Aut omated message] The system frenting generated this result transmitted ref erence range: 0 - 0 /1 00 WBC. The refere nce range was not u sed to interpret this result as normal/abnor mal. Lab Interpretation (test Abnormal code = 29760-1) [facility]2020-05-29 10:24:00 Test Item Value Reference Range Interpretation Comments WBC (test code = 6690-2) 13.3 See_Comment H [A utomated message] The system frenting generated this result transmitted ref erence range: 3.5 - 10 .5 K/L. The refe rence range was not u sed to interpret this result as normal/abnor mal. RBC (test code = 789-8) 5.52 See_Comment [Au tomated message] The system frenting generated this result transmitted ref erence range: 4.63 - 6 .08 M/L. The refe rence range was not u sed to interpret this result as normal/abnor mal. MCHC (test code = 786-4) 33.1 See_Comment [A utomated message] The system frenting generated this result transmitted ref erence range: [...] See_Comment [Aut omated message] 777-3) The system frenting generated this result transmitted ref erence range: 150 - 45 0 K/CU MM. The referen ce range was not u sed to interpret this result as normal/abnor mal. MPV (test code = 11.4 fL 9.4-12.4 54381-9) nRBC (test code = 413) 0 See_Comment [Aut omated message] The system frenting generated this result transmitted ref erence range: 0 - 0 /1 00 WBC. The refere nce range was not u sed to interpret this result as normal/abnor mal. Lab Interpretation (test Abnormal code = 13016-7) [facility] (HEMOGRAM ONLY)2020-05-29 10:24:00 Test Item Value Reference [...] (BEAKER) (test code = 413) Blood gas, [id number] 10:11:00 Test Item Value Reference Range Interpretation [...] 44 Lab Interpretation Abnormal (test code = 80188-6) [facility] Diego[facility], [id number] 10:11:00 Test Item Value Reference Range Interpretation [...] 44 Lab Interpretation Abnormal (test code = 70838-0) [facility], [id number] 10:11:00 Test Item Value Reference Range Interpretation [...] 44 Lab Interpretation Abnormal (test code = 06909-4) [facility], [id number] 10:11:00 Test Item Value Reference Range Interpretation [...] (test code = 1819) 44.0 HGB/HCT (H&H)-Stat [id number] 09:16:00 Test Item Value Reference Range Interpretation Comments Hemoglobin (test code = 16.9 See_Comment H [Au tomated message] 786-4) The system frenting generated this result transmitted ref erence range: 13.0 - 1 6.8 GM/DL. The refe rence range was not u sed to interpret this result as normal/abnor mal. Hematocrit (test code = 50.0 % 40-50 4544-3) Lab Interpretation (test Abnormal code = 11338-5) [facility] [id number] 09:16:00 Test Item Value Reference Range Interpretation Comments Glucose (test code = 2345-7) 321 mg/dL 70-110 H Lab Interpretation (test code = Abnormal 32071-8) [facility] [id number] 09:16:00 Test Item Value Reference Range Interpretation Comments Potassium (test code = 2823-3) 3.3 meq/L 3.6-5.5 L Lab Interpretation (test code = Abnormal 95128-6) [facility]&H[facility]Stat [id number] 09:16:00 Test Item Value Reference Range Interpretation Comments Hemoglobin (test code = 16.9 See_Comment H [Au tomated message] 786-4) The system frenting generated this result transmitted ref erence range: 13.0 - 1 6.8 GM/DL. The refe rence range was not u sed to interpret this result as normal/abnor mal. Hematocrit (test code = 50.0 % 40.0-50.0 4544-3) Lab Interpretation (test Abnormal code = 30226-8) [facility] [id number] 09:16:00 Test Item Value Reference Range Interpretation Comments Glucose (test code = 2345-7) 321 mg/dL 70-110 H Lab Interpretation (test code = Abnormal 26714-3) [facility] [id number] 09:16:00 Test Item Value Reference Range Interpretation Comments Potassium (test code = 2823-3) 3.3 meq/L 3.6-5.5 L Lab Interpretation (test code = Abnormal 13640-4) [facility] [id number] 09:16:00 Test Item Value Reference Range Interpretation Comments Hemoglobin (test code = 16.9 See_Comment H [Au tomated message] 786-4) The system frenting generated this result transmitted ref erence range: 13.0 - 1 6.8 GM/DL. The refe rence range was not u sed to interpret this result as normal/abnor mal. Hematocrit (test code = 50.0 % 40.0-50.0 4544-3) Lab Interpretation (test Abnormal code = 68841-6) [facility] [id number] 09:16:00 Test Item Value Reference Range Interpretation Comments Glucose (test code = 2345-7) 321 mg/dL 70-110 H Lab Interpretation (test code = Abnormal 30299-6) [facility] [id number] 09:16:00 Test Item Value Reference Range Interpretation Comments Potassium (test code = 2823-3) 3.3 meq/L 3.6-5.5 L Lab Interpretation (test code = Abnormal 82629-6) [facility], [id number] 09:16:00 Test Item Value Reference Range Interpretation [...] (BEAKER) (test code = 1819) 70.0 POTASSIUM-STAT [id number] 09:16:00 Test Item Value Reference Range Interpretation Comments POTASSIUM (BEAKER) (test code = 3.3 meq/L 3.6-5.5 L 379) GLUCOSE-STAT [id number] 09:16:00 Test Item Value Reference Range Interpretation Comments GLUCOSE RANDOM (BEAKER) (test code 321 mg/dL 70-110 H = 652) HGB/HCT (H&H) - STAT [id number] 09:16:00 Test Item Value Reference Range Interpretation Comments HEMOGLOBIN (BEAKER) (test code = 16.9 GM/DL 13.0-16.8 H 410) HEMATOCRIT (BEAKER) (test code = 50.0 % 40.0-50.0 411) Sodium Na-Stat [id number] 09:14:00 Test Item Value Reference Range Interpretation Comments Sodium (test code = 2951-2) 139 meq/L 136-145 Lab Interpretation (test code = Normal 81312-8) [facility] [id number] 09:14:00 Test Item Value Reference Range Interpretation Comments Sodium (test code = 2951-2) 139 meq/L 136-145 Lab Interpretation (test code = Normal 91313-0) [facility] [id number] 09:14:00 Test Item Value Reference Range Interpretation Comments Sodium (test code = 2951-2) 139 meq/L 136-145 Lab Interpretation (test code = Normal 60519-5) [facility] [id number] 09:14:00 Test Item Value Reference Range Interpretation Comments SODIUM (BEAKER) (test code = 381) 139 meq/L 136-145 Calcium, [id number] 08:23:00 Test Item Value Reference Range Interpretation Comments Calcium, Ion (test code = 1993-04) 1.13 mmol/L 1.12-1.27 pH, Blood (test code = 21961-4) 7.28 [facility], [id number] 08:23:00 Test Item Value Reference Range Interpretation Comments Calcium, Ion (test code = 1993-04) 1.13 mmol/L 1.12-1.27 pH, Blood (test code = 10564-7) 7.28 [facility], [id number] 08:23:00 Test Item Value Reference Range Interpretation Comments Calcium, Ion (test code = 1993-3) 1.13 mmol/L 1.12-1.27 pH, Blood (test code = 27248-2) 7.28 [facility], [id number] 08:23:00 Test Item Value Reference Range Interpretation [...] (BEAKER) (test code = 1819) 86.0 GLUCOSE-STAT [id number] 08:23:00 Test Item Value Reference Range Interpretation Comments GLUCOSE RANDOM (BEAKER) (test code 365 mg/dL 70-110 H = 652) HGB/HCT (H&H) - STAT [id number] 08:23:00 Test Item Value Reference Range Interpretation Comments HEMOGLOBIN (BEAKER) (test code = 18.1 GM/DL 13.0-16.8 H 410) HEMATOCRIT (BEAKER) (test code = 53.0 % 40.0-50.0 H 411) CALCIUM, [id number] 08:23:00 Test Item Value Reference Range Interpretation Comments CALCIUM IONIZED (BEAKER) (test 1.13 mmol/L 1.12-1.27 code = 698) PH, BLOOD (BEAKER) (test code = 7.28 1810) SODIUM NA-STAT [id number] 08:22:00 Test Item Value Reference Range Interpretation Comments SODIUM (BEAKER) (test code = 381) 139 meq/L 136-145 POTASSIUM-STAT [id number] 08:22:00 Test Item Value Reference Range Interpretation Comments POTASSIUM (BEAKER) (test code = 3.9 meq/L 3.6-5.5 379) Type and screen, [id number] 07:30:00 Test Item Value Reference Range Interpretation Comments ABO/RH AUTOMATED (BEAKER) (test O POSITIVE code = 2260) Ab Scrn (test code = 890-4) NEGATIVE [facility] DiegoType [facility] screen, [id number] 07:30:00 Test Item Value Reference Range Interpretation Comments ABO/RH AUTOMATED (BEAKER) (test O POSITIVE code = 2260) Ab Scrn (test code = 890-4) NEGATIVE [facility] DiegoType [facility] screen, [id number] 07:30:00 Test Item Value Reference Range Interpretation Comments ABO/RH AUTOMATED (BEAKER) (test O POSITIVE code = 2260) Ab Scrn (test code = 890-4) NEGATIVE [facility] Diego[facility]-GLU[facility]SE [id number] 06:38:00 Test Item Value Reference Range Interpretation Comments POC-GLUCOSE METER 395 mg/dL 70-110 H : TESTED A T [facility] 6720 (BEAKER) (test code [facility], = 1538) [address]: Curtain Mender/Techni yu ID = [id number] for JORD AN, LACRYSTAL BASIC METABOLIC [id number] 13:06:00 Test Item Value Reference Range Interpretation [...] S NOT APPLICABLE FOR DIALYSIS PATIEN TS. Curtain Mender ID - PIAYA LProthrombin time/[id number] 13:03:00 Test Item Value Reference Interpretation Comments [...] valves. Lab Interpretation Normal (test code = 62209-7) [facility] DiegoPROTHROMBIN TIME/[id number] 13:03:00 Test Item Value Reference Range Interpretation Comments PROTIME (BEAKER) 12.3 seconds 11.9-14.2 (test code = 759) INR (BEAKER) (test 0.94 See_Comment [Automat ed message] code = 370) The system ic TrackBill generated this result transmitted ref erence range: [...] mechanical heart valves.CBC W/PLT COUNT & AUTO [id number] 12:53:00 Test Item Value Reference Range Interpretation [...] PERCENT (BEAKER) (test code = 2801) BLOOD [id number] 16:48:00 Test Item Value Reference Range Interpretation Comments CULTURE (BEAKER) (test No growth in 5 days code = 1095) BLOOD [id number] 16:48:00 Test Item Value Reference Range Interpretation Comments CULTURE (BEAKER) (test No growth in 5 days code = 1095) [id number] 12:53:00 Test Item Value Reference Range Interpretation Comments MAGNESIUM (BEAKER) (test code = 2.4 mg/dL 1.6-2.6 627) BASIC METABOLIC [id number] 12:53:00 Test Item Value Reference Range Interpretation [...] NOT APPLICABLE FOR DIALYSIS PATIEN TS. POCT-GLUCOSE [id number] 12:15:00 Test Item Value Reference Range Interpretation Comments POC-GLUCOSE METER 277 mg/dL 70-[address] [facility] 67[address] [facility] (test code = [place] 1538) [address] POCT-GLUCOSE [id number] 08:07:00 Test Item Value Reference Range Interpretation Comments POC-GLUCOSE METER 184 mg/dL 70-[address] [facility] 67[address] [facility] (test code = [place] 1538) [address] BASIC METABOLIC [id number] 05:15:00 Test Item Value Reference Range Interpretation [...] S NOT APPLICABLE FOR DIALYSIS PATIEN TS. [id number] 05:09:00 Test Item Value Reference Range Interpretation Comments MAGNESIUM (BEAKER) (test code = 1.7 mg/dL 1.6-2.6 627) B-TYPE NATRIURETIC FACTOR (BNP)2017-08-29 05:06:00 Test Item Value Reference Range Interpretation Comments B-TYPE NATRIURETIC PEPTIDE (BEAKER) 370 pg/mL 0-100 H (test code = 700) LACTIC ACID, VENOUS, WHOLE [id number] 04:52:00 Test Item Value Reference Range Interpretation Comments LACTATE BLOOD VENOUS (2) (BEAKER) 1.8 mmol/L 0.5-2.2 (test code = 2872) Effective 06/11/2015: Units/Reference Range ChangeNew: 0.5-2.2 mmol/L Previous: 5-20 mg/dLCBC W/PLT COUNT & AUTO [id number] 04:35:00 Test Item Value Reference Range Interpretation [...] PERCENT (BEAKER) (test code = 2801) POCT-GLUCOSE [id number] 21:17:00 Test Item Value Reference Range Interpretation Comments POC-GLUCOSE METER 280 mg/dL 70-[address] [facility] 6720 (BEAKER) (test code = [place] 1538) [address] POCT-GLUCOSE [id number] 07:05:00 Test Item Value Reference Range Interpretation Comments POC-GLUCOSE METER 188 mg/dL 70-[address] [facility] 6720 (BEAKER) (test code = [place] 1538) [address] CALCIUM, [id number] 05:24:00 Test Item Value Reference Range Interpretation Comments CALCIUM IONIZED (BEAKER) (test 0.96 mmol/L 1.12-1.27 L code = 698) PH, BLOOD (BEAKER) (test code = 7.46 1810) [id number] 04:51:00 Test Item Value Reference Range Interpretation Comments POTASSIUM (BEAKER) (test code = 2.7 meq/L 3.5-5.1 L 379) PRN - repeat potassium levels every 1 hour until glucose level is less than 450 mg/[id number] 04:51:00 Test Item Value Reference Range Interpretation Comments PHOSPHORUS (BEAKER) (test code = 3.0 mg/dL 2.3-4.7 604) PRN - repeat potassium levels every 1 hour until glucose level is less than 450 mg/dLBASIC METABOLIC [id number] 04:51:00 Test Item Value Reference Range Interpretation [...] than 450 mg/dLCBC W/PLT COUNT & AUTO [id number] 04:16:00 Test Item Value Reference Range Interpretation [...] 0-1 PERCENT (BEAKER) (test code = 2801) [id number] 18:36:00 Test Item Value Reference Range Interpretation Comments POTASSIUM (BEAKER) (test code = 3.0 meq/L 3.5-5.1 L 379) PRN - repeat potassium levels every 1 hour until glucose level is less than 450 mg/[id number] 18:36:00 Test Item Value Reference Range Interpretation Comments MAGNESIUM (BEAKER) (test code = 2.1 mg/dL 1.6-2.6 627) PRN - repeat potassium levels every 1 hour until glucose level is less than 450 mg/dLPOCT-GLUCOSE [id number] 18:21:00 Test Item Value Reference Range Interpretation Comments POC-GLUCOSE METER 173 mg/dL 70-110 H TESTED AT [place] [address] (BEAKER) (test code = [place] 1538) [address] POCT-GLUCOSE [id number] 12:08:00 Test Item Value Reference Range Interpretation Comments POC-GLUCOSE METER 206 mg/dL 70-110 H TESTED AT [place] [id number] (BEAKER) (test code = [place] [facility] 1538) [address] [id number] 09:28:00 Test Item Value Reference Range Interpretation Comments POTASSIUM (BEAKER) (test code = 3.1 meq/L 3.5-5.1 L 379) PRN - repeat potassium levels every 1 hour until glucose level is less than 450 mg/[id number] 09:28:00 Test Item Value Reference Range Interpretation Comments MAGNESIUM (BEAKER) (test code = 1.8 mg/dL 1.6-2.6 627) PRN - repeat potassium levels every 1 hour until glucose level is less than 450 mg/[id number] 08:41:00 Test Item Value Reference Range Interpretation Comments PHOSPHORUS (BEAKER) (test code = 3.1 mg/dL 2.3-4.7 604) [id number] 08:41:00 Test Item Value Reference Range Interpretation Comments MAGNESIUM (BEAKER) (test code = 1.8 mg/dL 1.6-2.6 627) BASIC METABOLIC [id number] 08:41:00 Test Item Value Reference Range Interpretation [...] NOT APPLICABLE FOR DIALYSIS PATIEN TS. POCT-GLUCOSE [id number] 07:57:00 Test Item Value Reference Range Interpretation Comments POC-GLUCOSE METER 156 mg/dL 70-[address] [facility] 6720 (BEAKER) (test code = [place] 1538) [address] CALCIUM, [id number] 06:01:00 Test Item Value Reference Range Interpretation Comments CALCIUM IONIZED (BEAKER) (test 1.05 mmol/L 1.12-1.27 L code = 698) PH, BLOOD (BEAKER) (test code = 7.46 7590) OXYGEN SATURATION, [id number] 05:58:00 Test Item Value Reference Range Interpretation Comments O2 SATURATION (MEASURED) (BEAKER) 62.7 % (test code = 1455) [id number] 02:38:00 Test Item Value Reference Range Interpretation Comments POTASSIUM (BEAKER) 3.2 meq/L 3.5-5.1 L Specimen slightly (test code = 379) hemolyzed PRN - repeat potassium levels every 1 hour until glucose level is less than 450 mg/dLCBC W/PLT COUNT & AUTO [id number] 02:29:00 Test Item Value Reference Range Interpretation [...] PERCENT (BEAKER) (test code = 2801) POCT-GLUCOSE [id number] 00:21:00 Test Item Value Reference Range Interpretation Comments POC-GLUCOSE METER 166 mg/dL 70-[address] [facility] 6720 (BEAKER) (test code = [place] 1538) [address] RAD, CHEST, 1 VIEW, NON [id number] 22:03:00Reason for exam:->preopShould this be performed at [...] Nance Verified Date/Time: 08/26/2017 22:03:18 Reading Location: [address] Consult Reading Room [id number] 21:21:00 Test Item Value Reference Range Interpretation Comments PHOSPHORUS (BEAKER) (test code = 1.8 mg/dL 2.3-4.7 L 604) [id number] 21:21:00 Test Item Value Reference Range Interpretation Comments MAGNESIUM (BEAKER) (test code = 2.2 mg/dL 1.6-2.6 627) BASIC METABOLIC [id number] 21:21:00 Test Item Value Reference Range Interpretation [...] NOT APPLICABLE FOR DIALYSIS PATIEN TS. CALCIUM, [id number] 19:57:00 Test Item Value Reference Range Interpretation Comments CALCIUM IONIZED (BEAKER) (test 1.06 mmol/L 1.12-1.27 L code = 698) PH, BLOOD (BEAKER) (test code = 7.48 1520) Check serum Ionized Calcium level after 4 hours after IV Calcium replacement. [id number] 19:35:00 Test Item Value Reference Range Interpretation Comments POTASSIUM (BEAKER) (test code = 3.0 meq/L 3.5-5.1 L 379) PRN - repeat potassium levels every 1 hour until glucose level is less than 450 mg/dLPOCT-GLUCOSE [id number] 18:15:00 Test Item Value Reference Range Interpretation Comments POC-GLUCOSE METER 276 mg/dL 70-[address] [facility] 6720 (BEAKER) (test code = [place] 1538) [address] [id number] 12:52:00 Test Item Value Reference Range Interpretation Comments PHOSPHORUS (BEAKER) (test code = 1.7 mg/dL 2.3-4.7 L 604) [id number] 12:52:00 Test Item Value Reference Range Interpretation Comments MAGNESIUM (BEAKER) (test code = 1.9 mg/dL 1.6-2.6 627) BASIC METABOLIC [id number] 12:52:00 Test Item Value Reference Range Interpretation [...] NOT APPLICABLE FOR DIALYSIS PATIEN TS. CALCIUM, [id number] 12:51:00 Test Item Value Reference Range Interpretation Comments CALCIUM IONIZED (BEAKER) (test 1.01 mmol/L 1.12-1.27 L code = 698) PH, BLOOD (BEAKER) (test code = 7.49 1810) OXYGEN SATURATION, [id number] 12:50:00 Test Item Value Reference Range Interpretation Comments O2 SATURATION (MEASURED) (BEAKER) 59.9 % (test code = 1455) POCT-GLUCOSE [id number] 11:41:00 Test Item Value Reference Range Interpretation Comments POC-GLUCOSE METER 236 mg/dL 70-[address] [facility] 6720 (BEAKER) (test code = [place] 1538) [address] OXYGEN SATURATION, [id number] 08:00:00 Test Item Value Reference Range Interpretation Comments O2 SATURATION (MEASURED) (BEAKER) 65.7 % (test code = 1455) POCT-GLUCOSE [id number] 07:53:00 Test Item Value Reference Range Interpretation Comments POC-GLUCOSE METER 204 mg/dL 70-[address] [facility] 6720 (BEAKER) (test code = [place] 1538) [address] SPUTUM CULTURE + GRAM [id number] 07:40:00 Test Item Value Reference Range Interpretation Comments CULTURE (BEAKER) Oropharyngeal (test code = 1095) contamination, specimen rejected. Recollect requested. GRAM STAIN RESULT No White blood cells seen (BEAKER) (test code = 1123) GRAM STAIN RESULT >25 epithelial cells (BEAKER) (test code = 53794) GRAM STAIN RESULT <1+ yeast with (BEAKER) (test code pseudohyphae = 05846) RAD, ABDOMEN/KUB, 1 VIEW [id number] 07:34:00Reason for exam:->corpak placementShould this be performed at the bedside?->YesFINAL REPORT Abdomen one view shows feeding tube at the pylorus. Signed: Vandana Alfredo Verified Date/Time: 08/26/2017 07:34:48 Reading Location: [facility] Reading Room RAD, CHEST, 1 VIEW, NON [id number] 07:27:00Reason for exam:->respiratory insufficiencyShould this be performed [...] Todd Verified Date/Time: 08/26/2017 07:27:28 Reading Location: [facility] Reading Room BASIC METABOLIC [id number] 05:32:00 Test Item Value Reference Range Interpretation [...] GFR I S NOT APPLICABLE FOR DIALYSIS PATIVAHE TS. [id number] 05:31:00 Test Item Value Reference Range Interpretation Comments MAGNESIUM (BEAKER) (test code = 2.2 mg/dL 1.6-2.6 627) CBC W/PLT COUNT & AUTO [id number] 04:49:00 Test Item Value Reference Range Interpretation [...] 2801) CT BRAIN WITHOUT IV CONTRAST - [id number] 02:23:00Reason for exam:- >confusion/delirium, altered LOC unexplainedFINAL [...] an acute intracranial process. Signed: Mary Zimmer Verified Date/Time: 08/26/2017 02:23:10 Reading Location: [facility] [address] Body Reading Room [id number] 01:02:00 Test Item Value Reference Range Interpretation Comments POTASSIUM (BEAKER) (test code = 3.3 meq/L 3.5-5.1 L 379) PRN - repeat potassium levels every 1 hour until glucose level is less than 450 mg/[id number] 01:02:00 Test Item Value Reference Range Interpretation Comments MAGNESIUM (BEAKER) (test code = 1.9 mg/dL 1.6-2.6 627) PRN - repeat potassium levels every 1 hour until glucose level is less than 450 mg/dLPOCT-GLUCOSE [id number] 22:07:00 Test Item Value Reference Range Interpretation Comments POC-GLUCOSE METER 270 mg/dL 70-[address] [facility] 6720 (BEAKER) (test code = [place] 1538) [address] BLOOD GAS, [id number] 21:24:00 Test Item Value Reference Range Interpretation [...] code = 1819) 44.0 % SODIUM NA-STAT [id number] 21:19:00 Test Item Value Reference Range Interpretation Comments SODIUM (BEAKER) (test code = 381) 142 meq/L 135-148 [id number] 20:16:00 Test Item Value Reference Range Interpretation Comments MAGNESIUM (BEAKER) 2.3 mg/dL 1.6-2.6 Specimen slightly (test code = 627) hemolyzed PRN - repeat potassium levels every 1 hour until glucose level is less than 450 mg/[id number] 20:16:00 Test Item Value Reference Range Interpretation Comments POTASSIUM (BEAKER) 3.6 meq/L 3.5-5.1 Specimen slightly (test code = 379) hemolyzed PRN - repeat potassium levels every 1 hour until glucose level is less than 450 mg/[id number] 18:42:00 Test Item Value Reference Range Interpretation Comments SODIUM (BEAKER) (test code = 381) 144 meq/L 136-145 EEG AWAKE AND [id number] 18:32:00Reason for exam:->To rule out seizures/ AMSDATE OF REPORT: CC: [id number] Number: [id number] time: 14:55 Stop time: 15:20ICD-10: R56.9CPT Code: 19958 HISTORY: 62 yo male with PMHx of ALL, DE, HTN, 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 [...] BEAR MONTANEZ MD on 08/25/2017 06:32 PMBLOOD [id number] 17:49:00 Test Item Value Reference Range Interpretation Comments CULTURE (BEAKER) (test No growth in 5 days code = 1095) BLOOD [id number] 17:48:00 Test Item Value Reference Range Interpretation Comments CULTURE (BEAKER) (test No growth in 5 days code = 1095) POCT-GLUCOSE [id number] 17:30:00 Test Item Value Reference Range Interpretation Comments POC-GLUCOSE METER 254 mg/dL 70-110 H TESTED AT [place] [address] ([facility]) (test code = [facility] 1538) [address] POCT-GLUCOSE [id number] 11:50:00 Test Item Value Reference Range Interpretation Comments POC-GLUCOSE METER 252 mg/dL 70-110 H TESTED AT [place] [address] ([facility]) (test code = [facility] 1538) [address] POCT-GLUCOSE [id number] 09:11:00 Test Item Value Reference Range Interpretation Comments POC-GLUCOSE METER 312 mg/dL 70-110 H TESTED AT [place] [address] ([facility]) (test code = [facility] 1538) [address] RAD, CHEST, 1 VIEW, NON [id number] 07:31:00Reason for exam:->pulmonary edemaShould this be performed at the bedside?->YesFINAL REPORT Chest one view compared to August 24 Discussion: Mild cardiac prominence and interstitial edema are noted. No effusion or pneumothorax. Feeding tube and right IJ line in place. IMPRESSIONS: Interstitial edema is worse. Signed: Vandana Todd Verified Date/Time: 08/25/2017 07:31:54 Reading Location: [facility] Reading Room [id number] 07:13:00 Test Item Value Reference Range Interpretation Comments MAGNESIUM (BEAKER) (test code = 1.8 mg/dL 1.6-2.6 627) BASIC METABOLIC [id number] 07:13:00 Test Item Value Reference Range Interpretation [...] PATIEN TS. CBC W/PLT COUNT & AUTO [id number] 04:57:00 Test Item Value Reference Range Interpretation [...] (BEAKER) (test code = 2801) BLOOD GAS, [id number] 04:31:00 Test Item Value Reference Range Interpretation [...] code = 1819) 44.0 % OXYGEN SATURATION, [id number] 04:20:00 Test Item Value Reference Range Interpretation Comments O2 SATURATION (MEASURED) ([facility]) 64.8 % (test code = 1455) POCT-GLUCOSE [id number] 22:39:00 Test Item Value Reference Range Interpretation Comments POC-GLUCOSE METER 196 mg/dL 70-110 H TESTED AT [place] [address] ([facility]) (test code = [place] 1538) [address] [id number] 19:20:00 Test Item Value Reference Range Interpretation Comments POTASSIUM (BEAKER) 3.8 meq/L 3.5-5.1 Specimen slightly (test code = 379) hemolyzed PRN - repeat potassium levels every 1 hour until glucose level is less than 450 mg/dLCALCIUM, [id number] 18:28:00 Test Item Value Reference Range Interpretation Comments CALCIUM IONIZED ([facility]) (test 1.04 mmol/L 1.12-1.27 L code = 698) PH, BLOOD ([facility]) (test code = 7.49 1810) Check serum Ionized Calcium level after 4 hours after IV Calcium replacement. POCT-GLUCOSE [id number] 18:23:00 Test Item Value Reference Range Interpretation Comments POC-GLUCOSE METER 194 mg/dL 70-110 H TESTED AT [place] [address] ([facility]) (test code = [facility] 1538) [address] VANCOMYCIN LEVEL, [id number] 16:50:00 Test Item Value Reference Range Interpretation Comments VANCOMYCIN TROUGH ([facility]) (test 11.3 ug/mL 10.0-20.0 code = 522) Please draw 30 minutes prior to next Vancomycin [id number] 16:06:00 Test Item Value Reference Range Interpretation Comments POTASSIUM (BEAKER) (test code = 3.6 meq/L 3.5-5.1 379) PRN - repeat potassium levels every 1 hour until glucose level is less than 450 mg/[id number] 13:08:00 Test Item Value Reference Range Interpretation Comments POTASSIUM (BEAKER) (test code = 3.4 meq/L 3.5-5.1 L 379) PRN - repeat potassium levels every 1 hour until glucose level is less than 450 mg/dLPOCT-GLUCOSE [id number] 12:38:00 Test Item Value Reference Range Interpretation Comments POC-GLUCOSE METER 217 mg/dL 70-110 H TESTED AT [place] [address] ([facility]) (test code = [place] 1538) [address] [id number] 11:26:00 Test Item Value Reference Range Interpretation Comments PROCALCITONIN (AKER) (test code 0.74 ng/mL <0.05 H = 3036) SEPSIS RISK (ng/mL)Low: 0.05-0.50Intermediate: 0.51-2.00High: >=2.01CALCIUM, [id number] 10:51:00 Test Item Value Reference Range Interpretation Comments CALCIUM IONIZED ([facility]) (test 1.06 mmol/L 1.12-1.27 L code = 698) PH, BLOOD ([facility]) (test code = 7.39 1810) Check serum Ionized Calcium level after 4 hours after IV Calcium replacement. [id number] 08:53:00 Test Item Value Reference Range Interpretation Comments POTASSIUM (BEAKER) (test code = 3.6 meq/L 3.5-5.1 379) Check Serum Potassium level 2 hours after oral potassium replacement completed or 30 min after intravenous potassium replacement.[id number] 08:53:00 Test Item Value Reference Range Interpretation Comments MAGNESIUM (BEAKER) (test code = 2.6 mg/dL 1.6-2.6 627) Check Serum Potassium level 2 hours after oral potassium replacement completed or 30 min after intravenous potassium replacement.POCT-GLUCOSE [id number] 07:35:00 Test Item Value Reference Range Interpretation Comments POC-GLUCOSE METER 180 mg/dL 70-110 H TESTED AT [place] [address] (BEAKER) (test code = [place] 1538) [address] [id number] 04:29:00 Test Item Value Reference Range Interpretation Comments PHOSPHORUS (BEAKER) (test code = 2.9 mg/dL 2.3-4.7 604) [id number] 04:29:00 Test Item Value Reference Range Interpretation Comments MAGNESIUM (BEAKER) (test code = 1.9 mg/dL 1.6-2.6 627) BASIC METABOLIC [id number] 04:29:00 Test Item Value Reference Range Interpretation [...] PATIEN TS. RAD, CHEST, 1 VIEW, NON [id number] 04:23:00Reason for exam:->ptxShould this be performed at [...] MDReport Verified Date/Time: 08/24/2017 04:23:14 Reading Location: [address] Reading Room PROTHROMBIN TIME/[id number] 04:15:00 Test Item Value Reference Range Interpretation [...] (BEAKER) (test code = 2801) BLOOD GAS, [id number] 03:54:00 Test Item Value Reference Range Interpretation [...] code = 1819) 100.0 % OXYGEN SATURATION, [id number] 03:54:00 Test Item Value Reference Range Interpretation Comments O2 SATURATION (MEASURED) (BEAKER) 65.9 % (test code = 1455) CALCIUM, [id number] 03:54:00 Test Item Value Reference Range Interpretation Comments CALCIUM IONIZED (BEAKER) (test 1.02 mmol/L 1.12-1.27 L code = 698) PH, BLOOD (BEAKER) (test code = 7.44 1810) POCT-GLUCOSE [id number] 00:15:00 Test Item Value Reference Range Interpretation Comments POC-GLUCOSE METER 221 mg/dL 70-[address] [facility] 6720 (BEAKER) (test code = [place] 1538) [address] [id number] 00:13:00 Test Item Value Reference Range Interpretation Comments POTASSIUM (BEAKER) (test code = 3.3 meq/L 3.5-5.1 L 379) PRN - repeat potassium levels every 1 hour until glucose level is less than 450 mg/[id number] 21:10:00 Test Item Value Reference Range Interpretation Comments POTASSIUM (BEAKER) (test code = 3.6 meq/L 3.5-5.1 379) PRN - repeat potassium levels every 1 hour until glucose level is less than 450 mg/[id number] 21:10:00 Test Item Value Reference Range Interpretation Comments MAGNESIUM (BEAKER) (test code = 2.3 mg/dL 1.6-2.6 627) PRN - repeat potassium levels every 1 hour until glucose level is less than 450 mg/dLCALCIUM, [id number] 20:49:00 Test Item Value Reference Range Interpretation Comments CALCIUM IONIZED (BEAKER) (test 1.02 mmol/L 1.12-1.27 L code = 698) PH, BLOOD ([facility]) (test code = 7.40 1810) Check serum Ionized Calcium level after 4 hours after IV Calcium replacement. POCT-GLUCOSE [id number] 19:20:00 Test Item Value Reference Range Interpretation Comments POC-GLUCOSE METER 157 mg/dL 70-110 H TESTED AT [place] [address] ([facility]) (test code = [facility] 1538) [address] POCT-GLUCOSE [id number] 19:20:00 Test Item Value Reference Range Interpretation Comments POC-GLUCOSE METER 108 mg/dL 70-110 TESTED AT [place] [address] ([facility]) (test code = [facility] 1538) [address] POCT-GLUCOSE [id number] 19:20:00 Test Item Value Reference Range Interpretation Comments POC-GLUCOSE METER 130 mg/dL 70-110 H TESTED AT [place] [address] ([facility]) (test code = [facility] 1538) [address] POCT-GLUCOSE [id number] 19:20:00 Test Item Value Reference Range Interpretation Comments POC-GLUCOSE METER 172 mg/dL 70-110 H TESTED AT [place] [address] ([facility]) (test code = [facility] 1538) [address] POCT-GLUCOSE [id number] 19:20:00 Test Item Value Reference Range Interpretation Comments POC-GLUCOSE METER 215 mg/dL 70-110 H TESTED AT [place] [address] (BEAKER) (test code = [place] 1538) [address] [id number] 15:32:00 Test Item Value Reference Range Interpretation Comments POTASSIUM (BEAKER) (test code = 3.1 meq/L 3.5-5.1 L 379) PRN - repeat potassium levels every 1 hour until glucose level is less than 450 mg/[id number] 15:32:00 Test Item Value Reference Range Interpretation Comments MAGNESIUM (BEAKER) (test code = 1.9 mg/dL 1.6-2.6 627) PRN - repeat potassium levels every 1 hour until glucose level is less than 450 mg/dLCALCIUM, [id number] 14:59:00 Test Item Value Reference Range Interpretation Comments CALCIUM IONIZED (BEAKER) (test 0.96 mmol/L 1.12-1.27 L code = 698) PH, BLOOD (BEAKER) (test code = 7.46 1810) Check serum Ionized Calcium level after 4 hours after IV Calcium replacement. [id number] 13:11:00 Test Item Value Reference Range Interpretation Comments MAGNESIUM (BEAKER) (test code = 2.0 mg/dL 1.6-2.6 627) BASIC METABOLIC [id number] 10:37:00 Test Item Value Reference Range Interpretation [...] APPLICABLE FOR DIALYSIS PATIEN TS. U/S, ABDOMINAL, [id number] 10:24:00Abdomen limited area? Add comment if clarification [...] MDReport Verified Date/Time: 08/23/2017 10:24:29 Reading Location: [address] Ultrasound Reading Room SPUTUM CULTURE + GRAM [id number] 09:59:00 Test Item Value Reference Range Interpretation Comments CULTURE (BEAKER) (test See comment code = 1095) GRAM STAIN RESULT 2+ WBCs (BEAKER) (test code = 1123) GRAM STAIN RESULT 5-10 epithelial cells (BEAKER) (test code = 990244) GRAM STAIN RESULT No organisms seen (BEAKER) (test code = 988361) <1+ YeastNo Normal respiratory jessica presentCBC W/PLT COUNT & AUTO [id number] 09:57:00 Test Item Value Reference Range Interpretation [...] 75.1 % (test code = 1455) POCT-GLUCOSE [id number] 09:06:00 Test Item Value Reference Range Interpretation Comments POC-GLUCOSE METER 175 mg/dL 70-[address] [facility] 6720 (BEAKER) [facility] [place] [facility] 1538) [address] POCT-GLUCOSE [id number] 09:06:00 Test Item Value Reference Range Interpretation Comments POC-GLUCOSE METER 108 mg/dL 70-[address] [facility] 6720 (BEAKER) ([facility] [place] [facility] 1538) [address] POCT-GLUCOSE [id number] 09:06:00 Test Item Value Reference Range Interpretation Comments POC-GLUCOSE METER 95 mg/dL 70-[address] [facility] 6720 (BEAKER) ([facility] = [facility] [place] [facility] [address] 1538) POCT-GLUCOSE [id number] 09:06:00 Test Item Value Reference Range Interpretation Comments POC-GLUCOSE METER 120 mg/dL 70-[address] [facility] 6720 (BEAKER) (test code = [facility] [place] [facility] 1538) [address] PLATELET AGGREGATION: DRUG [id number] 08:24:00 Test Item Value Reference Range Interpretation [...] (BEAKER) ADP suggest a (test code = 200626) [id number] drug effect. [id number] Chanel Ryder, (BEAKER) (test code = MD (electronic 6599) signature) PLATELET COUNT AGG 120 K/CU MM 150-450 L (BEAKER) (test code = 2656) RAD, CHEST, 1 VIEW, NON [id number] 07:26:00Reason for exam:->ptxShould this be performed at the bedside?->YesFINAL REPORT Chest one view compared to August 22 Discussion: Cardiac prominence and mild pulmonary congestion are similar. No effusion or pneumothorax. Right IJ line in place. Support tubes noted. Signed: Vandana Todd Verified Date/Time: 08/23/2017 07:26:37 Reading Location: [facility] Radiology Reading Room BLOOD GAS, [id number] 07:25:00 Test Item Value Reference Range Interpretation [...] (BEAKER) (test code = 1819) 80.0 % [id number] 06:34:00 Test Item Value Reference Range Interpretation Comments FERRITIN (BEAKER) (test code = 361) 268 ng/mL 5-275 VITAMIN B12 AND [id number] 06:34:00 Test Item Value Reference Range Interpretation Comments VITAMIN B12 (BEAKER) (test code = 500 pg/mL 213-816 774) FOLATE (BEAKER) (test code = 362) 12.4 ng/mL >=7.0 RETICULOCYTE [id number] 06:01:00 Test Item Value Reference Range Interpretation [...] % 20-55 L (test code = 2590) [id number] 05:50:00 Test Item Value Reference Range Interpretation Comments MAGNESIUM (BEAKER) (test code = 2.1 mg/dL 1.6-2.6 627) BASIC METABOLIC [id number] 05:50:00 Test Item Value Reference Range Interpretation [...] NOT APPLICABLE FOR DIALYSIS PATIEN TS. CALCIUM, [id number] 05:33:00 Test Item Value Reference Range Interpretation Comments CALCIUM IONIZED (BEAKER) (test 1.02 mmol/L 1.12-1.27 L code = 698) PH, BLOOD (BEAKER) (test code = 7.45 1810) BLOOD GAS, [id number] 05:32:00 Test Item Value Reference Range Interpretation [...] (test code = 1819) 40.0 % POCT-GLUCOSE [id number] 02:47:00 Test Item Value Reference Range Interpretation Comments POC-GLUCOSE METER 137 mg/dL 70-110 H TESTED AT [place] [address] ([facility]) (test code = [facility] [place] [facility] 1538) [address] POCT-GLUCOSE [id number] 02:47:00 Test Item Value Reference Range Interpretation Comments POC-GLUCOSE METER 171 mg/dL 70-110 H TESTED AT [place] [address] ([facility]) (test code = [facility] [place] [facility] 1538) [address] POCT-GLUCOSE [id number] 02:47:00 Test Item Value Reference Range Interpretation Comments POC-GLUCOSE METER 159 mg/dL 70-110 H TESTED AT [place] [address] ([facility] (test code = [facility] [place] [facility] 1538) [address] [id number] 00:39:00 Test Item Value Reference Range Interpretation Comments MAGNESIUM (BEAKER) (test code = 1.8 mg/dL 1.6-2.6 627) PRN - repeat potassium levels every 1 hour until glucose level is less than 450 mg/[id number] 00:39:00 Test Item Value Reference Range Interpretation Comments POTASSIUM (BEAKER) (test code = 3.1 meq/L 3.5-5.1 L 379) PRN - repeat potassium levels every 1 hour until glucose level is less than 450 mg/dLPOCT-GLUCOSE [id number] 23:44:00 Test Item Value Reference Range Interpretation Comments POC-GLUCOSE METER 129 mg/dL 70-110 H TESTED AT [place] [address] ([facility]) (test code = [place] 1538) [address] POCT-GLUCOSE [id number] 23:44:00 Test Item Value Reference Range Interpretation Comments POC-GLUCOSE METER 130 mg/dL 70-110 H TESTED AT [place] [address] ([facility]) (test code = [place] 1538) [address] POCT-GLUCOSE [id number] 23:44:00 Test Item Value Reference Range Interpretation Comments POC-GLUCOSE METER 156 mg/dL 70-110 H TESTED AT [place] [address] ([facility]) (test code = [place] 1538) [address] POCT-GLUCOSE [id number] 22:17:00 Test Item Value Reference Range Interpretation Comments POC-GLUCOSE METER 173 mg/dL 70-110 H TESTED AT [place] [address] ([facility]) (test code = [place] 1538) [address] POCT-GLUCOSE [id number] 22:17:00 Test Item Value Reference Range Interpretation Comments POC-GLUCOSE METER 160 mg/dL 70-110 H TESTED AT [place] [address] ([facility]) (test code = [place] 1538) [address] POCT-GLUCOSE [id number] 18:53:00 Test Item Value Reference Range Interpretation Comments POC-GLUCOSE METER 147 mg/dL 70-110 H TESTED AT [place] [address] ([facility]) (test code = [place] 1538) [address] POCT-GLUCOSE [id number] 18:53:00 Test Item Value Reference Range Interpretation Comments POC-GLUCOSE METER 157 mg/dL 70-110 H TESTED AT [place] [address] ([facility]) (test code = [place] 1538) [address] [id number] 17:05:00 Test Item Value Reference Range Interpretation Comments AMMONIA ([facility]) 54 mol/L 18-72 Specimen sl ightly (test code = 348) hemolyzed VANCOMYCIN LEVEL, [id number] 16:53:00 Test Item Value Reference Range Interpretation Comments VANCOMYCIN TROUGH ([facility]) (test 10.8 ug/mL 10.0-20.0 code = 522) Please draw 30 minutes prior to vancomycin due time. Do not administer if vancomycin trough is >20 mcg/mL. Thank you!POCT-GLUCOSE [id number] 16:50:00 Test Item Value Reference Range Interpretation Comments POC-GLUCOSE METER 157 mg/dL 70-110 H TESTED AT [place] [address] ([facility]) (test code = [place] [facility] 1538) [address] [id number] 16:50:00 Test Item Value Reference Range Interpretation Comments MAGNESIUM ([facility]) (test code = 2.1 mg/dL 1.6-2.6 627) POCT-GLUCOSE [id number] 16:50:00 Test Item Value Reference Range Interpretation Comments POC-GLUCOSE METER 141 mg/dL 70-110 H TESTED AT [place] [address] ([facility]) (test code = [place] [facility] 1538) [address] POCT-GLUCOSE [id number] 16:50:00 Test Item Value Reference Range Interpretation Comments POC-GLUCOSE METER 149 mg/dL 70-110 H TESTED AT [place] [address] ([facility]) (test code = [place] [facility] 1538) [address] POCT-GLUCOSE [id number] 16:50:00 Test Item Value Reference Range Interpretation Comments POC-GLUCOSE METER 123 mg/dL 70-110 H TESTED AT [place] [address] ([facility]) (test code = [place] [facility] 1538) [address] POCT-GLUCOSE [id number] 16:50:00 Test Item Value Reference Range Interpretation Comments POC-GLUCOSE METER 105 mg/dL 70-110 TESTED AT [place] [address] ([facility]) (test code = [place] [facility] 1538) [address] [id number] 12:25:00 Test Item Value Reference Range Interpretation Comments PROCALCITONIN ([facility]) (test code 2.33 ng/mL <0.05 H = 3036) SEPSIS RISK (ng/mL)Low: 0.05-0.50Intermediate: 0.51-2.00High: >=2.01URINALYSIS W/ REFLEX URINE [id number] 11:50:00 Test Item Value Reference Range Interpretation [...] 1521) SOURCE(BEAKER) (test code = 2795) TROPONIN [id number] 09:25:00 Test Item Value Reference Range Interpretation [...] completed or 30 min after intravenous potassium replacement.[id number] 09:24:00 Test Item Value Reference Range Interpretation Comments POTASSIUM (BEAKER) (test code = 4.3 meq/L 3.5-5.1 379) PRN - repeat glucose levels every 1 hour or as specified by insulin titration orders until glucose level is less than 450 mg/dLCheck Serum Potassium level 2 hours after oral potassium replacement completed or 30 min after intravenous potassium replacement.[id number] 08:59:00 Test Item Value Reference Range Interpretation Comments GLUCOSE RANDOM (BEAKER) (test code 110 mg/dL 70-105 H = 652) PRN - repeat glucose levels every 1 hour or as specified by insulin titration orders until glucose level is less than 450 mg/dLCheck Serum Potassium level 2 hours after oral potassium replacement completed or 30 min after intravenous potassium replacement.CALCIUM, [id number] 08:43:00 Test Item Value Reference Range Interpretation Comments CALCIUM IONIZED (BEAKER) (test 1.04 mmol/L 1.12-1.27 L code = 698) PH, BLOOD (BEAKER) (test code = 7.47 1810) Check serum Ionized Calcium level after 4 hours after IV Calcium replacement. RAD, CHEST, 1 VIEW, NON [id number] 07:25:00Reason for exam:->ptxShould this be performed at the bedside?->YesFINAL REPORT Chest one view compared to August 21, 2017 Discussion: Support tubes and right IJ line in place. Cardiac prominence is noted. Lungs clear. Drainage tubes visible. No effusion or pneumothorax. Signed: Vandana Todd Verified Date/Time: 08/22/2017 07:25:51 Reading Location: [facility] Radiology Reading Room POCT-GLUCOSE [id number] 06:35:00 Test Item Value Reference Range Interpretation Comments POC-GLUCOSE METER 116 mg/dL 70-[address] [facility] 6720 (BEAKER) (test code = [place] 1538) [address] POCT-GLUCOSE [id number] 05:20:00 Test Item Value Reference Range Interpretation Comments POC-GLUCOSE METER 136 mg/dL 70-[address] [facility] 6720 (BEAKER) (test code = [place] 1538) [address] CALCIUM, [id number] 04:22:00 Test Item Value Reference Range Interpretation Comments CALCIUM IONIZED (BEAKER) (test 1.05 mmol/L 1.12-1.27 L code = 698) PH, BLOOD (BEAKER) (test code = 7.47 1810) BLOOD GAS, [id number] 04:17:00 Test Item Value Reference Range Interpretation [...] code = 1819) 40.0 % OXYGEN SATURATION, [id number] 04:11:00 Test Item Value Reference Range Interpretation Comments O2 SATURATION (MEASURED) (BEAKER) 50.9 % (test code = 1455) BASIC METABOLIC [id number] 04:07:00 Test Item Value Reference Range Interpretation [...] S NOT APPLICABLE FOR DIALYSIS PATIEN TS. [id number] 04:06:00 Test Item Value Reference Range Interpretation Comments PHOSPHORUS (BEAKER) (test code = 3.8 mg/dL 2.3-4.7 604) LACTIC ACID, ARTERIAL, WHOLE [id number] 04:05:00 Test Item Value Reference Range Interpretation Comments LACTATE BLOOD ARTERIAL (2) 0.9 mmol/L 0.5-2.2 (BEAKER) (test code = 2874) Effective 06/11/2015: Units/Reference Range ChangeNew: 0.5-2.2 mmol/L Previous: 5-20 mg/[id number] 04:02:00 Test Item Value Reference Range Interpretation Comments MAGNESIUM (BEAKER) (test code = 2.1 mg/dL 1.6-2.6 627) CBC W/PLT COUNT & AUTO [id number] 03:52:00 Test Item Value Reference Range Interpretation [...] PERCENT (BEAKER) (test code = 2801) POCT-GLUCOSE [id number] 03:45:00 Test Item Value Reference Range Interpretation Comments POC-GLUCOSE METER 148 mg/dL 70-110 H TESTED AT [place] [address] ([facility]) ([facility] = [facility] [place] [facility] 1538) [address] POCT-GLUCOSE [id number] 02:36:00 Test Item Value Reference Range Interpretation Comments POC-GLUCOSE METER 155 mg/dL 70-110 H TESTED AT [place] [address] ([facility]) (test [facility] = [facility] [place] [facility] 1538) [address] POCT-GLUCOSE [id number] 01:16:00 Test Item Value Reference Range Interpretation Comments POC-GLUCOSE METER 136 mg/dL 70-110 H TESTED AT [place] [address] ([facility]) (test code = [place] [facility] 1538) [address] POCT-GLUCOSE [id number] 00:22:00 Test Item Value Reference Range Interpretation Comments POC-GLUCOSE METER 124 mg/dL 70-110 H TESTED AT [place] [address] ([facility]) (test code = [place] 1538) [address] [id number] 23:28:00 Test Item Value Reference Range Interpretation Comments MAGNESIUM ([facility]) (test code = 1.9 mg/dL 1.6-2.6 627) POCT-GLUCOSE [id number] 23:11:00 Test Item Value Reference Range Interpretation Comments POC-GLUCOSE METER 112 mg/dL 70-110 H TESTED AT [place] [address] ([facility]) (test code = [place] 1538) [address] POCT-GLUCOSE [id number] 22:02:00 Test Item Value Reference Range Interpretation Comments POC-GLUCOSE METER 132 mg/dL 70-110 H TESTED AT [place] [address] ([facility]) (test code = [place] 1538) [address] POCT-GLUCOSE [id number] 21:40:00 Test Item Value Reference Range Interpretation Comments POC-GLUCOSE METER 130 mg/dL 70-110 H TESTED AT [place] [address] ([facility]) (test code = [place] 1538) [address] [id number] 20:58:00 Test Item Value Reference Range Interpretation Comments POTASSIUM ([facility]) (test code = 3.9 meq/L 3.5-5.1 379) PRN - repeat potassium levels every 1 hour until glucose level is less than 450 mg/dLPOCT-GLUCOSE [id number] 20:31:00 Test Item Value Reference Range Interpretation Comments POC-GLUCOSE METER 111 mg/dL 70-110 H TESTED AT [place] [address] ([facility]) (test code = [place] 1538) [address] POCT-GLUCOSE [id number] 19:24:00 Test Item Value Reference Range Interpretation Comments POC-GLUCOSE METER 133 mg/dL 70-110 H TESTED AT [place] [address] ([facility]) (test code = [place] 1538) [address] POCT-GLUCOSE [id number] 17:41:00 Test Item Value Reference Range Interpretation Comments POC-GLUCOSE METER 140 mg/dL 70-110 H TESTED AT [place] [address] ([facility]) (test code = [place] 1538) [address] [id number] 16:40:00 Test Item Value Reference Range Interpretation Comments POTASSIUM (BEAKER) (test code = 3.9 meq/L 3.5-5.1 379) PRN - repeat glucose levels every 1 hour or as specified by insulin titration orders until glucose level is less than 450 mg/dLCheck Serum Potassium level 2 hours after oral potassium replacement completed or 30 min after intravenous potassium replacement.[id number] 16:40:00 Test Item Value Reference Range Interpretation Comments MAGNESIUM (BEAKER) (test code = 2.0 mg/dL 1.6-2.6 627) PRN - repeat glucose levels every 1 hour or as specified by insulin titration orders until glucose level is less than 450 mg/dLCheck Serum Potassium level 2 hours after oral potassium replacement completed or 30 min after intravenous potassium replacement.[id number] 16:40:00 Test Item Value Reference Range Interpretation Comments GLUCOSE RANDOM (BEAKER) (test code 131 mg/dL 70-105 H = 652) PRN - repeat glucose levels every 1 hour or as specified by insulin titration orders until glucose level is less than 450 mg/dLCheck Serum Potassium level 2 hours after oral potassium replacement completed or 30 min after intravenous potassium replacement.CALCIUM, [id number] 16:16:00 Test Item Value Reference Range Interpretation Comments CALCIUM IONIZED (BEAKER) (test 1.06 mmol/L 1.12-1.27 L code = 698) PH, BLOOD ([facility]) (test code = 7.42 1810) Check serum Ionized Calcium level after 4 hours after IV Calcium replacement. POCT-GLUCOSE [id number] 16:13:00 Test Item Value Reference Range Interpretation Comments POC-GLUCOSE METER 131 mg/dL 70-110 H TESTED AT [place] [address] ([facility]) (test code = [facility] 1538) 79561 POCT-GLUCOSE [id number] 16:13:00 Test Item Value Reference Range Interpretation Comments POC-GLUCOSE METER 133 mg/dL 70-110 H TESTED AT [place] [address] ([facility]) (test code = [facility] 1538) 74783 POCT-GLUCOSE [id number] 16:13:00 Test Item Value Reference Range Interpretation Comments POC-GLUCOSE METER 89 mg/dL 70-110 TESTED AT [place] [address] ([facility]) (test code = [facility] [address] 1538) POCT-GLUCOSE [id number] 16:13:00 Test Item Value Reference Range Interpretation Comments POC-GLUCOSE METER 130 mg/dL 70-110 H TESTED AT [place] [address] ([facility]) (test code = [place] [facility] 1538) [address] POCT-GLUCOSE [id number] 16:13:00 Test Item Value Reference Range Interpretation Comments POC-GLUCOSE METER 137 mg/dL 70-110 H TESTED AT [place] [address] ([facility]) (test code = [place] [facility] 1538) 44689 POCT-GLUCOSE [id number] 16:13:00 Test Item Value Reference Range Interpretation Comments POC-GLUCOSE METER 131 mg/dL 70-110 H TESTED AT [place] [address] ([facility]) (test code = [place] [facility] 1538) [address] POCT-GLUCOSE [id number] 16:13:00 Test Item Value Reference Range Interpretation Comments POC-GLUCOSE METER 129 mg/dL 70-110 H TESTED AT [place] [address] ([facility]) (test code = [place] [facility] 1538) [address] POCT-GLUCOSE [id number] 16:13:00 Test Item Value Reference Range Interpretation Comments POC-GLUCOSE METER 145 mg/dL 70-110 H TESTED AT [place] [address] ([facility]) (test code = [place] [facility] 1538) [address] RAD, CHEST, 1 VIEW, NON [id number] 10:45:00Reason for exam:->NEW CENTRAL LINE INSERTION (R) [...] patchy bibasilar airspace disease. Signed: Greta Armenta Verified Date/Time: 08/21/2017 10:45:33 Reading Location: [facility] C013W Consult Reading Room CBC W/PLT COUNT & AUTO [id number] 09:55:00 Test Item Value Reference Range Interpretation [...] ABSOLUTE COUNT 0.00 K/ L 0.04-0.54 L ([facility]) (test code = 416) BASOPHILS ABSOLUTE COUNT ([facility]) 0.02 K/ L 0.01-0.08 (test code = 417) IMMATURE GRANULOCYTES-RELATIVE 1 % 0-1 PERCENT ([facility]) (test code = 2801) POCT-GLUCOSE [id number] 08:19:00 Test Item Value Reference Range Interpretation Comments POC-GLUCOSE METER 117 mg/dL 70-[address] [facility] 67 ([facility]) (test code = [facility] 1538) 93186 POCT-GLUCOSE [id number] 08:19:00 Test Item Value Reference Range Interpretation Comments POC-GLUCOSE METER 141 mg/dL 70-110 H TESTED AT [place] [address] ([facility]) (test code = [facility] 1538) 61918 RAD, CHEST, 1 VIEW, NON [id number] 07:34:00Reason for exam:->ETT, CHEST TUBES, PA CATHETERShould [...] MDReport Verified Date/Time: 08/21/2017 07:34:55 Reading Location: [facility] C013W Consult Reading Room VANCOMYCIN LEVEL, [id number] 05:27:00 Test Item Value Reference Range Interpretation Comments VANCOMYCIN RANDOM (BELEM) (test 6.1 ug/mL code = 523) Reference Range: No NormalsPlease draw 30 minutes prior to vancomycin due time. Do not administer ifvancomycin trough is >20 mcg/mL. Thank you!BLOOD GAS, [id number] 05:23:00 Test Item Value Reference Range Interpretation [...] (BEAKER) (test code = 1819) 40.0 % [id number] 05:18:00 Test Item Value Reference Range Interpretation Comments PHOSPHORUS (BEAKER) (test code = 3.0 mg/dL 2.3-4.7 604) [id number] 05:18:00 Test Item Value Reference Range Interpretation Comments MAGNESIUM (BEAKER) (test code = 2.0 mg/dL 1.6-2.6 627) BASIC METABOLIC [id number] 05:18:00 Test Item Value Reference Range Interpretation [...] DIALYSIS PATIEN TS. LACTIC ACID, ARTERIAL, WHOLE [id number] 04:55:00 Test Item Value Reference Range Interpretation Comments LACTATE BLOOD ARTERIAL (2) 0.9 mmol/L 0.5-2.2 ([facility]) (test code = 2874) Effective 06/11/2015: Units/Reference Range ChangeNew: 0.5-2.2 mmol/L Previous: 5-20 mg/dLOXYGEN SATURATION, [id number] 04:42:00 Test Item Value Reference Range Interpretation Comments O2 SATURATION (MEASURED) ([facility]) 66.0 % (test code = 1455) POCT-GLUCOSE [id number] 03:44:00 Test Item Value Reference Range Interpretation Comments POC-GLUCOSE METER 161 mg/dL 70-110 H TESTED AT [place] [address] ([facility]) [facility] [place] [facility] 1538) [address] POCT-GLUCOSE [id number] 02:15:00 Test Item Value Reference Range Interpretation Comments POC-GLUCOSE METER 172 mg/dL 70-110 H TESTED AT [place] [address] ([facility]) ([facility] = [facility] [place] [facility] 1538) [address] POCT-GLUCOSE [id number] 02:15:00 Test Item Value Reference Range Interpretation Comments POC-GLUCOSE METER 180 mg/dL 70-110 H TESTED AT [place] [address] ([facility]) ([facility] [place] [facility] 1538) [address] POCT-GLUCOSE [id number] 02:15:00 Test Item Value Reference Range Interpretation Comments POC-GLUCOSE METER 176 mg/dL 70-110 H TESTED AT [place] [address] ([facility]) ([facility] [place] [facility] 1538) 277[address] POCT-GLUCOSE [id number] 02:15:00 Test Item Value Reference Range Interpretation Comments POC-GLUCOSE METER 203 mg/dL 70-110 H TESTED AT [place] [address] ([facility]) (test code = [facility] 1538) 13794 POCT-GLUCOSE [id number] 02:15:00 Test Item Value Reference Range Interpretation Comments POC-GLUCOSE METER 174 mg/dL 70-110 H TESTED AT [place] [address] ([facility]) (test code = [facility] 1538) 8[address]87 CALCIUM, [id number] 00:34:00 Test Item Value Reference Range Interpretation Comments CALCIUM IONIZED (BEAKER) (test 1.09 mmol/L 1.12-1.27 L code = 698) PH, BLOOD (BEAKER) (test code = 7.40 1810) Check serum Ionized Calcium level after 4 hours after IV Calcium replacement. POCT-GLUCOSE [id number] 23:10:00 Test Item Value Reference Range Interpretation Comments POC-GLUCOSE METER 190 mg/dL 70-110 H TESTED AT [place] [address] ([facility]) (test code = [facility] 1538) 88682 POCT-GLUCOSE [id number] 23:10:00 Test Item Value Reference Range Interpretation Comments POC-GLUCOSE METER 106 mg/dL 70-110 TESTED AT [place] [address] ([facility]) (test code = [facility] 1538) 99932 POCT-GLUCOSE [id number] 23:10:00 Test Item Value Reference Range Interpretation Comments POC-GLUCOSE METER 155 mg/dL 70-110 H TESTED AT [place] [address] ([facility]) (test code = [facility] 1538) [address]288 [id number] 22:00:00 Test Item Value Reference Range Interpretation Comments MAGNESIUM (BEAKER) (test code = 2.0 mg/dL 1.6-2.6 627) BLOOD GAS, [id number] 21:45:00 Test Item Value Reference Range Interpretation [...] 1819) 40.0 % RAD, ABDOMEN/KUB, 1 VIEW [id number] 21:38:00Reason for exam:->corpak placementFINAL REPORT RAD, ABDOMEN/KUB, [...] MDReport Verified Date/Time: 08/20/2017 21:38:34 Reading Location: [address] Transitional Reading Room CALCIUM, [id number] 18:48:00 Test Item Value Reference Range Interpretation Comments CALCIUM IONIZED (BEAKER) (test 1.08 mmol/L 1.12-1.27 L code = 698) PH, BLOOD (BEAKER) (test code = 7.48 1810) BASIC METABOLIC [id number] 18:14:00 Test Item Value Reference Range Interpretation [...] DIALYSIS PATIEN TS. LACTIC ACID, VENOUS, WHOLE [id number] 18:07:00 Test Item Value Reference Range Interpretation Comments LACTATE BLOOD VENOUS (2) (BEAKER) 0.7 mmol/L 0.5-2.2 (test code = 2872) Effective 06/11/2015: Units/Reference Range ChangeNew: 0.5-2.2 mmol/L Previous: 5-20 mg/dLCBC W/PLT COUNT & AUTO [id number] 17:37:00 Test Item Value Reference Range Interpretation [...] 0-0 (test code = 413) BLOOD GAS, [id number] 17:06:00 Test Item Value Reference Range Interpretation [...] (BEAKER) (test code = 1819) 40.0 % [id number] 15:08:00 Test Item Value Reference Range Interpretation Comments POTASSIUM (BEAKER) (test code = 4.0 meq/L 3.5-5.1 379) Check Serum Potassium level 2 hours after oral potassium replacement completed or 30 min after intravenous potassium replacement.[id number] 15:08:00 Test Item Value Reference Range Interpretation Comments MAGNESIUM (BEAKER) (test code = 1.9 mg/dL 1.6-2.6 627) Check Serum Potassium level 2 hours after oral potassium replacement completed or 30 min after intravenous potassium replacement.CALCIUM, [id number] 14:56:00 Test Item Value Reference Range Interpretation Comments CALCIUM IONIZED (BEAKER) (test 1.07 mmol/L 1.12-1.27 L code = 698) PH, BLOOD (BEAKER) (test code = 7.43 1810) Check serum Ionized Calcium level after 4 hours after IV Calcium replacement. RAD, ABDOMEN/KUB, 1 VIEW [id number] 12:00:00Reason for exam:->corpak placementShould this be performed [...] MDReport Verified Date/Time: 08/20/2017 12:00:17 Reading Location: [facility] C013W Consult Reading Room POCT-GLUCOSE [id number] 11:57:00 Test Item Value Reference Range Interpretation Comments POC-GLUCOSE METER 186 mg/dL 70-[address] [facility] 6720 (BEAKER) (test code = [place] 1538) [address] OXYGEN SATURATION, [id number] 11:00:00 Test Item Value Reference Range Interpretation Comments O2 SATURATION (MEASURED) (BEAKER) 67.6 % (test code = 1455) CBC W/PLT COUNT & AUTO [id number] 10:47:00 Test Item Value Reference Range Interpretation [...] User comments: Slide comments:LACTIC ACID, ARTERIAL, WHOLE [id number] 09:18:00 Test Item Value Reference Range Interpretation Comments LACTATE BLOOD ARTERIAL (2) 1.0 mmol/L 0.5-2.2 (BEAKER) (test code = 2874) Effective 06/11/2015: Units/Reference Range ChangeNew: 0.5-2.2 mmol/L Previous: 5-20 mg/dLPOCT-GLUCOSE [id number] 09:15:00 Test Item Value Reference Range Interpretation Comments POC-GLUCOSE METER 220 mg/dL 70-110 H TESTED AT [place] [address] ([facility]) (test code = [place] 1538) [address] POCT-GLUCOSE [id number] 09:15:00 Test Item Value Reference Range Interpretation Comments POC-GLUCOSE METER 203 mg/dL 70-110 H TESTED AT [place] [address] ([facility]) (test code = [place] 1538) [address] POCT-GLUCOSE [id number] 09:15:00 Test Item Value Reference Range Interpretation Comments POC-GLUCOSE METER 35 mg/dL 70-110 LL TESTED AT [place] [address] ([facility]) (test code = [place] [facility] [address] 1538) POCT-GLUCOSE [id number] 09:15:00 Test Item Value Reference Range Interpretation Comments POC-GLUCOSE METER 110 mg/dL 70-110 TESTED AT [place] [address] ([facility]) (test code = [place] [facility] 1538) [address] POCT-GLUCOSE [id number] 09:15:00 Test Item Value Reference Range Interpretation Comments POC-GLUCOSE METER 118 mg/dL 70-110 H TESTED AT [place] [address] ([facility]) (test code = [place] [facility] 1538) 17363 POCT-GLUCOSE [id number] 09:15:00 Test Item Value Reference Range Interpretation Comments POC-GLUCOSE METER 126 mg/dL 70-110 H TESTED AT [place] [address] ([facility]) (test code = [place] [facility] 1538) [address] RAD, CHEST, 1 VIEW, NON [id number] 07:52:00Reason for exam:->ETT, CHEST TUBES, PA CATHETERShould this be performed at the bedside?->YesFINAL REPORT Chest one view compared to August 19 Discussion: Interstitial congestion is similar. ET tube and left IJ line again noted. Left costophrenic angle excluded from the image. No gross effusion or pneumothorax. No visible pulmonary artery access. Signed: Vandana Todd Verified Date/Time: 08/20/2017 07:52:29 Reading Location: [address] CT, BRAIN, WITHOUT [id number] 05:11:00FINAL REPORT CT, BRAIN, WITHOUT CONTRAST INDICATION: [...] MDReport Verified Date/Time: 08/20/2017 05:11:47 Reading Location: [address] Transitional Reading Room OXYGEN SATURATION, [id number] 05:10:00 Test Item Value Reference Range Interpretation Comments O2 SATURATION (MEASURED) (BEAKER) 65.8 % (test code = 1455) BLOOD GAS, [id number] 04:57:00 Test Item Value Reference Range Interpretation [...] (BEAKER) (test code = 1819) 40.0 % [id number] 04:49:00 Test Item Value Reference Range Interpretation Comments PHOSPHORUS (BEAKER) (test code = 3.9 mg/dL 2.3-4.7 604) [id number] 04:49:00 Test Item Value Reference Range Interpretation Comments MAGNESIUM (BEAKER) (test code = 2.1 mg/dL 1.6-2.6 627) BASIC METABOLIC [id number] 04:49:00 Test Item Value Reference Range Interpretation [...] APPLICABLE FOR DIALYSIS PATIEN TS. BLOOD GAS, [id number] 01:31:00 Test Item Value Reference Range Interpretation [...] 1819) 40.0 % LACTIC ACID, ARTERIAL, WHOLE [id number] 00:02:00 Test Item Value Reference Range Interpretation Comments LACTATE BLOOD ARTERIAL (2) 1.2 mmol/L 0.5-2.2 (BEAKER) (test code = 2874) Effective 06/11/2015: Units/Reference Range ChangeNew: 0.5-2.2 mmol/L Previous: 5-20 mg/[id number] 00:01:00 Test Item Value Reference Range Interpretation Comments MAGNESIUM (BEAKER) (test code = 1.7 mg/dL 1.6-2.6 627) SODIUM NA-STAT [id number] 23:24:00 Test Item Value Reference Range Interpretation Comments SODIUM (BEAKER) (test code = 381) 141 meq/L 135-148 POTASSIUM-STAT [id number] 23:24:00 Test Item Value Reference Range Interpretation Comments POTASSIUM (BEAKER) (test code = 5.3 meq/L 3.6-5.5 379) CALCIUM, [id number] 23:24:00 Test Item Value Reference Range Interpretation Comments CALCIUM IONIZED (BEAKER) (test 1.20 mmol/L 1.12-1.27 code = 698) PH, BLOOD (BEAKER) (test code = 7.39 1810) Check serum Ionized Calcium level after 4 hours after IV Calcium replacement. BLOOD GAS, [id number] 23:24:00 Test Item Value Reference Range Interpretation [...] (test code = 1819) 60.0 % GLUCOSE-STAT [id number] 23:24:00 Test Item Value Reference Range Interpretation Comments GLUCOSE RANDOM (BEAKER) (test code 204 mg/dL 70-110 H = 652) HGB/HCT (H&H) - STAT [id number] 23:24:00 Test Item Value Reference Range Interpretation Comments HEMOGLOBIN (BEAKER) (test code = 10.4 g/dL 13.0-16.8 L 410) HEMATOCRIT (BEAKER) (test code = 31.0 % 40.0-50.0 L 411) OXYGEN SATURATION, [id number] 23:23:00 Test Item Value Reference Range Interpretation Comments O2 SATURATION (MEASURED) (BEAKER) 68.4 % (test code = 1455) LACTIC ACID, ARTERIAL, WHOLE [id number] 22:05:00 Test Item Value Reference Range Interpretation Comments LACTATE BLOOD ARTERIAL (2) 1.4 mmol/L 0.5-2.2 (BEAKER) (test code = 2874) Effective 06/11/2015: Units/Reference Range ChangeNew: 0.5-2.2 mmol/L Previous: 5-20 mg/[id number] 22:03:00 Test Item Value Reference Range Interpretation Comments MAGNESIUM (BEAKER) (test code = 1.8 mg/dL 1.6-2.6 627) CALCIUM, [id number] 21:46:00 Test Item Value Reference Range Interpretation Comments CALCIUM IONIZED (BEAKER) (test 1.44 mmol/L 1.12-1.27 H code = 698) PH, BLOOD (BEAKER) (test code = 7.37 1810) BLOOD GAS, [id number] 21:44:00 Test Item Value Reference Range Interpretation [...] (test code = 1819) 50.0 % GLUCOSE-STAT [id number] 21:44:00 Test Item Value Reference Range Interpretation Comments GLUCOSE RANDOM (BEAKER) (test code 197 mg/dL 70-110 H = 652) HGB/HCT (H&H) - STAT [id number] 21:44:00 Test Item Value Reference Range Interpretation Comments HEMOGLOBIN (BEAKER) (test code = 11.3 g/dL 13.0-16.8 L 410) HEMATOCRIT (BEAKER) (test code = 33.0 % 40.0-50.0 L 411) SODIUM NA-STAT [id number] 21:43:00 Test Item Value Reference Range Interpretation Comments SODIUM (BEAKER) (test code = 381) 141 meq/L 135-148 POTASSIUM-STAT [id number] 21:43:00 Test Item Value Reference Range Interpretation Comments POTASSIUM (BEAKER) (test code = 4.6 meq/L 3.6-5.5 379) RAD, CHEST, 1 VIEW, NON [id number] 20:58:00Reason for exam:- >intubationShould this be performed at the bedside?->YesFINAL REPORT Chest, portable AP view History: Intubation Comparison: Earlier the same day at 9:11 AM IMPRESSION: The tip of the endotracheal tube is approximately 4.7 cm above the waqas. The heart is stably enlarged. Patient status post median sternotomy. There is been intervalremoval of the Ash-Marya catheter. Left basilar chest tubes in place. There is a trace left apical pn eumothorax. Interval placement of a left IJ central venous catheter with the distal catheter tip at the innominate SVC junction. Bibasilar atelectasis persists. Signed: Emanuel Boyd MDReport Verified Date/Time: 08/19/2017 20:58:35 Reading Location: [facility] C013W Consult Reading Room OXYGEN SATURATION, [id number] 19:16:00 Test Item Value Reference Range Interpretation Comments O2 SATURATION (MEASURED) (BEAKER) 67.8 % (test code = 1455) BLOOD GAS, [id number] 19:07:00 Test Item Value Reference Range Interpretation [...] (test code = 1819) 100.0 % GLUCOSE-STAT [id number] 19:07:00 Test Item Value Reference Range Interpretation Comments GLUCOSE RANDOM (BEAKER) (test code 144 mg/dL 70-110 H = 652) POCT-GLUCOSE [id number] 17:11:00 Test Item Value Reference Range Interpretation Comments POC-GLUCOSE METER 108 mg/dL 70-[address] [facility] 6720 (BEAKER) (test code = [facility] 1538) [address] BLOOD GAS, [id number] 16:53:00 Test Item Value Reference Range Interpretation [...] code = 1819) 100.0 % BLOOD GAS, [id number] 14:09:00 Test Item Value Reference Range Interpretation [...] (test code = 1819) 44.0 % TROPONIN [id number] 12:55:00 Test Item Value Reference Range Interpretation [...] acute neurological disease, and persistent tachyarrhythmia.COMPREHENSIVE METABOLIC [id number] 12:20:00 Test Item Value Reference Range Interpretation [...] S NOT APPLICABLE FOR DIALYSIS PATIEN TS. [id number] 12:19:00 Test Item Value Reference Range Interpretation Comments MAGNESIUM (BEAKER) (test code = 1.9 mg/dL 1.6-2.6 627) BASIC METABOLIC [id number] 12:19:00 Test Item Value Reference Range Interpretation [...] DIALYSIS PATIEN TS. LACTIC ACID, ARTERIAL, WHOLE [id number] 12:16:00 Test Item Value Reference Range Interpretation Comments LACTATE BLOOD ARTERIAL (2) 3.1 mmol/L 0.5-2.2 H (BEAKER) (test code = 2874) Effective 06/11/2015: Units/Reference Range ChangeNew: 0.5-2.2 mmol/L Previous: 5-20 mg/dLCALCIUM, [id number] 12:04:00 Test Item Value Reference Range Interpretation [...] = 413) RAD, CHEST, 1 VIEW, NON [id number] 09:55:00Reason for exam:->ETT, CHEST TUBES, PA CATHETERShould this be performed at the bedside?->YesFINAL REPORT Two frontal chest images compared to August 19, 2017 Discussion: Support tubes and right IJ pulmonary catheter in place. Chest tubes are noted. Trace left apical pneumothorax. Minimal left base atelectasis. Signed: Vandana Toddeport Verified Date/Time: 08/19/201709:55:44 Reading Location: [facility] Reading Room LACTIC ACID, ARTERIAL, WHOLE BLOOD 2017-08-19 07:50:00 Test Item Value Reference Range Interpretation Comments LACTATE BLOOD ARTERIAL (2) 3.2 mmol/L 0.5-2.2 H (BEAKER) (test code = 2874) Effective 06/11/2015: Units/Reference Range ChangeNew: 0.5-2.2 mmol/L Previous: 5-20 mg/dLBLOOD GAS, [id number] 07:31:00 Test Item Value Reference Range Interpretation [...] 50.0 % CREATINE KINASE (CK), TOTAL AND [id number] 07:08:00 Test Item Value Reference Range Interpretation Comments CREATINE KINASE TOTAL (BEAKER) 282 U/L 29-200 H (test code = 380) CREATINE KINASE-MB (BEAKER) (test 11.5 ng/mL 0.0-6.6 H code = 750) CREATINE KINASE-MB INDEX (BEAKER) 4.1 % (test code = 395) CK-MB Reference Range:<6.7 Normal6.7-10.0 Borderline>10.0 AbnormalTROPONIN [id number] 07:04:00 Test Item Value Reference Range Interpretation [...] acidosis, acute neurological disease, and persistent tachyarrhythmia.POCT-GLUCOSE [id number] 06:14:00 Test Item Value Reference Range Interpretation Comments POC-GLUCOSE METER 166 mg/dL 70-110 H TESTED AT [place] [address] ([facility]) (test code = [place] 1538) [address] POCT-GLUCOSE [id number] 06:14:00 Test Item Value Reference Range Interpretation Comments POC-GLUCOSE METER 196 mg/dL 70-110 H TESTED AT [place] [address] ([facility]) (test code = [place] 1538) [address] POCT-GLUCOSE [id number] 06:14:00 Test Item Value Reference Range Interpretation Comments POC-GLUCOSE METER 209 mg/dL 70-110 H TESTED AT [place] [address] ([facility]) ([facility] = [facility] [place] 1538) [address] POCT-GLUCOSE [id number] 06:14:00 Test Item Value Reference Range Interpretation Comments POC-GLUCOSE METER 259 mg/dL 70-110 H TESTED AT [place] [address] ([facility]) (test code = [place] 1538) [address] POCT-GLUCOSE [id number] 06:14:00 Test Item Value Reference Range Interpretation Comments POC-GLUCOSE METER 304 mg/dL 70-110 H TESTED AT [place] [address] ([facility]) (test code = [place] 1538) [address] POCT-GLUCOSE [id number] 06:14:00 Test Item Value Reference Range Interpretation Comments POC-GLUCOSE METER 343 mg/dL 70-110 H TESTED AT [place] [address] ([facility]) (test code = [place] 1538) [address] OXYGEN SATURATION, [id number] 05:39:00 Test Item Value Reference Range Interpretation Comments O2 SATURATION (MEASURED) ([facility]) 73.8 % (test code = 1455) BLOOD GAS, [id number] 05:03:00 Test Item Value Reference Range Interpretation [...] (test code = 1819) 50.0 % GLUCOSE-STAT [id number] 05:03:00 Test Item Value Reference Range Interpretation Comments GLUCOSE RANDOM (BEAKER) (test code 175 mg/dL 70-110 H = 652) HGB/HCT (H&H) - STAT [id number] 05:03:00 Test Item Value Reference Range Interpretation Comments HEMOGLOBIN (BEAKER) (test code = 11.9 g/dL 13.0-16.8 L 410) HEMATOCRIT (BEAKER) (test code = 35.0 % 40.0-50.0 L 411) CALCIUM, [id number] 05:02:00 Test Item Value Reference Range Interpretation Comments CALCIUM IONIZED (BEAKER) (test 1.21 mmol/L 1.12-1.27 code = 698) PH, BLOOD (BEAKER) (test code = 7.31 1810) Check serum Ionized Calcium level after 4 hours after IV Calcium replacement. SODIUM NA-STAT [id number] 05:01:00 Test Item Value Reference Range Interpretation Comments SODIUM (BEAKER) (test code = 381) 142 meq/L 135-148 POTASSIUM-STAT [id number] 05:01:00 Test Item Value Reference Range Interpretation Comments POTASSIUM (BEAKER) (test code = 3.6 meq/L 3.6-5.5 379) [id number] 04:59:00 Test Item Value Reference Range Interpretation Comments PHOSPHORUS (BEAKER) (test code = 2.2 mg/dL 2.3-4.7 L 604) [id number] 04:59:00 Test Item Value Reference Range Interpretation Comments MAGNESIUM (BEAKER) (test code = 2.0 mg/dL 1.6-2.6 627) BASIC METABOLIC [id number] 04:59:00 Test Item Value Reference Range Interpretation [...] DIALYSIS PATIEN TS. LACTIC ACID, ARTERIAL, WHOLE [id number] 04:53:00 Test Item Value Reference Range Interpretation Comments LACTATE BLOOD ARTERIAL (2) 7.3 mmol/L 0.5-2.2 H (BEAKER) (test code = 2874) Effective 06/11/2015: Units/Reference Range ChangeNew: 0.5-2.2 mmol/L Previous: 5-20 mg/dLCBC W/PLT COUNT & AUTO [id number] 04:52:00 Test Item Value Reference Range Interpretation [...] 0-1 PERCENT (BEAKER) (test code = 2801) [id number] 04:50:00 Test Item Value Reference Range Interpretation Comments PARTIAL THROMBOPLASTIN TIME 35.7 seconds 22.5-36.0 (BEAKER) (test code = 760) PROTHROMBIN [id number] 04:49:00 Test Item Value Reference Range Interpretation [...] ChangeNew: 0.5-2.2 mmol/L Previous: 5-20 mg/dLBLOOD GAS, [id number] 03:33:00 Test Item Value Reference Range Interpretation [...] (test code = 1819) 50.0 % CALCIUM, [id number] 03:32:00 Test Item Value Reference Range Interpretation Comments CALCIUM IONIZED (BEAKER) (test 1.17 mmol/L 1.12-1.27 code = 698) PH, BLOOD (BEAKER) (test code = 7.37 1810) LACTIC ACID, ARTERIAL, WHOLE [id number] 01:43:00 Test Item Value Reference Range Interpretation Comments LACTATE BLOOD ARTERIAL (2) 9.2 mmol/L 0.5-2.2 H (BEAKER) (test code = 2874) Effective 06/11/2015: Units/Reference Range ChangeNew: 0.5-2.2 mmol/L Previous: 5-20 mg/[id number] 01:41:00 Test Item Value Reference Range Interpretation Comments MAGNESIUM (BEAKER) (test code = 2.3 mg/dL 1.6-2.6 627) BLOOD GAS, [id number] 01:31:00 Test Item Value Reference Range Interpretation [...] (test code = 1819) 50.0 % POTASSIUM-STAT [id number] 01:31:00 Test Item Value Reference Range Interpretation Comments POTASSIUM (BEAKER) (test code = 3.3 meq/L 3.6-5.5 L 379) GLUCOSE-STAT [id number] 01:31:00 Test Item Value Reference Range Interpretation Comments GLUCOSE RANDOM (BEAKER) (test code 236 mg/dL 70-110 H = 652) HGB/HCT (H&H) - STAT [id number] 01:31:00 Test Item Value Reference Range Interpretation Comments HEMOGLOBIN (BEAKER) (test code = 11.1 g/dL 13.0-16.8 L 410) HEMATOCRIT (BEAKER) (test code = 33.0 % 40.0-50.0 L 411) OXYGEN SATURATION, [id number] 01:28:00 Test Item Value Reference Range Interpretation Comments O2 SATURATION (MEASURED) (BEAKER) 76.9 % (test code = 1455) SODIUM NA-STAT [id number] 01:28:00 Test Item Value Reference Range Interpretation Comments SODIUM (BEAKER) (test code = 381) 144 meq/L 135-148 RAD, CHEST, 1 VIEW, NON [id number] 00:23:00Reason for exam:->s/p PA catheter placementFINAL REPORT RAD, CHEST, 1 VIEW, NON DEPT INDICATION: s/p PA catheter placement COMPARISON: Prior day's exam FINDINGS: Portable frontal view of the chest. IMPRESSION: Support Lines: Interval placement of a right IJ Ash-Marya catheter with tip overlying the main pulmonary [...] Stable surgical changes.Additional findings: None. S[facility] Verified Date/Time: 08/19/2017 00:23:43 Reading Location: [address] Reading Room LACTIC ACID, ARTERIAL, WHOLE [id number] 23:40:00 Test Item Value Reference Range Interpretation Comments LACTATE BLOOD ARTERIAL (2) 8.7 mmol/L 0.5-2.2 H (BEAKER) (test code = 2874) Effective 06/11/2015: Units/Reference Range ChangeNew: 0.5-2.2 mmol/L Previous: 5-20 mg/dLBLOOD GAS, [id number] 23:20:00 Test Item Value Reference Range Interpretation [...] (test code = 1819) 60.0 % POTASSIUM-STAT [id number] 23:20:00 Test Item Value Reference Range Interpretation Comments POTASSIUM (BEAKER) (test code = 3.2 meq/L 3.6-5.5 L 379) GLUCOSE-STAT [id number] 23:20:00 Test Item Value Reference Range Interpretation Comments GLUCOSE RANDOM (BEAKER) (test code 282 mg/dL 70-110 H = 652) HGB/HCT (H&H) - STAT [id number] 23:20:00 Test Item Value Reference Range Interpretation Comments HEMOGLOBIN (BEAKER) (test code = 10.7 g/dL 13.0-16.8 L 410) HEMATOCRIT (BEAKER) (test code = 31.0 % 40.0-50.0 L 411) CALCIUM, [id number] 23:20:00 Test Item Value Reference Range Interpretation Comments CALCIUM IONIZED (BEAKER) (test 1.10 mmol/L 1.12-1.27 L code = 698) PH, BLOOD (BEAKER) (test code = 7.36 1810) Check serum Ionized Calcium level after 4 hours after IV Calcium replacement. SODIUM NA-STAT [id number] 23:19:00 Test Item Value Reference Range Interpretation Comments SODIUM (BEAKER) (test code = 381) 144 meq/L 135-148 OXYGEN SATURATION, [id number] 23:19:00 Test Item Value Reference Range Interpretation Comments O2 SATURATION (MEASURED) (BEAKER) 79.6 % (test code = 1455) BLOOD GAS, [id number] 22:12:00 Test Item Value Reference Range Interpretation [...] 60.0 % RAD, CHEST, 1 VIEW, NON [id number] 20:42:00Reason for exam:->s/p ACBFINAL REPORT Chest, 1 [...] Vasquez Verified Date/Time: 08/18/2017 20:42:09 Reading Location: [address] Reading Room BLOOD GAS, ARTERIAL 2017-08-18 [...] 37.0 C (test code = 1818) GLUCOSE-STAT [id number] 20:27:00 Test Item Value Reference Range Interpretation Comments GLUCOSE RANDOM (BEAKER) (test code 319 mg/dL 70-110 H = 652) HGB/HCT (H&H) - STAT [id number] 20:27:00 Test Item Value Reference Range Interpretation Comments HEMOGLOBIN (BEAKER) (test code = 12.2 g/dL 13.0-16.8 L 410) HEMATOCRIT (BEAKER) (test code = 36.0 % 40.0-50.0 L 411) CALCIUM, [id number] 20:26:00 Test Item Value Reference Range Interpretation Comments CALCIUM IONIZED (BEAKER) (test 1.23 mmol/L 1.12-1.27 code = 698) PH, BLOOD (BEAKER) (test code = 7.24 1810) SODIUM NA-STAT [id number] 20:26:00 Test Item Value Reference Range Interpretation Comments SODIUM (BEAKER) (test code = 381) 142 meq/L 135-148 POTASSIUM-STAT [id number] 20:26:00 Test Item Value Reference Range Interpretation Comments POTASSIUM (BEAKER) (test code = 3.6 meq/L 3.6-5.5 379) CBC W/PLT COUNT & AUTO [id number] 20:13:00 Test Item Value Reference Range Interpretation [...] = 3438) Received comment: User comments: Slide comments:[id number] 20:06:00 Test Item Value Reference Range Interpretation Comments MAGNESIUM (BEAKER) (test code = 2.4 mg/dL 1.6-2.6 627) BASIC METABOLIC [id number] 20:06:00 Test Item Value Reference Range Interpretation [...] DIALYSIS PATIEN TS. LACTIC ACID, ARTERIAL, WHOLE [id number] 20:02:00 Test Item Value Reference Range Interpretation Comments LACTATE BLOOD ARTERIAL (2) 4.9 mmol/L 0.5-2.2 H (BEAKER) (test code = 2874) Effective 06/11/2015: Units/Reference Range ChangeNew: 0.5-2.2 mmol/L Previous: 5-20 mg/dLPROTHROMBIN [id number] 19:51:00 Test Item Value Reference Range Interpretation Comments PROTIME (BEAKER) (test code = 16.4 seconds 11.7-14.7 H 759) INR (BEAKER) (test code = 370) 1.3 <=5.9 RECOMMENDED COUMADIN/WARFARIN INR THERAPY RANGESSTANDARD DOSE: 2.0 - 3.0 Includes: PROPHYLAXIS forvenous thrombosis, systemic embolization; TREATMENT for venous thrombosis and/or pulmonary embolus.HIGH RISK: Target INR is 2.5-3.5 for patients with mechanical heart valves.[id number] 19:51:00 Test Item Value Reference Range Interpretation Comments FIBRINOGEN LEVEL (BEAKER) (test 331 mg/dl 225-434 code = 658) [id number] 19:51:00 Test Item Value Reference Range Interpretation Comments PARTIAL THROMBOPLASTIN TIME 31.1 seconds 22.5-36.0 (BEAKER) (test code = 760) OXYGEN SATURATION, [id number] 19:44:00 Test Item Value Reference Range Interpretation Comments O2 SATURATION (MEASURED) (BEAKER) 76.2 % (test code = 1455) BLOOD GAS, [id number] 19:43:00 Test Item Value Reference Range Interpretation [...] (BEAKER) (test code = 1819) 60.0 % [id number] 19:07:00 Test Item Value Reference Range Interpretation Comments ACTIVATED CLOTTING TIME 120 sec TEST ED AT [place] [address] ([facility]) (test code = [place] [address]) [id number] [id number] 19:07:00 Test Item Value Reference Range Interpretation Comments ACTIVATED CLOTTING TIME 439 sec TEST ED AT [place] [address] ([facility]) (test code = [place] [address]) [address] [id number] 19:07:00 Test Item Value Reference Range Interpretation Comments ACTIVATED CLOTTING TIME 433 sec TEST ED AT [place] [address] ([facility]) (test code = [place] [facility]) [address] [id number] 19:07:00 Test Item Value Reference Range Interpretation Comments ACTIVATED CLOTTING TIME 378 sec TEST ED AT [place] [address] ([facility]) (test code = [place] [facility]) [address] [id number] 19:07:00 Test Item Value Reference Range Interpretation Comments ACTIVATED CLOTTING TIME 422 sec TEST ED [address] [facility] 6720 (BEAKER) (test code = [place] [address]) [address] THROMBOELASTOGRAPH (TEG)2017-08-18 18:59:00 Test Item Value Reference [...] 55.0-65.0 H (test code = 1413) PROTHROMBIN [id number] 18:36:00 Test Item Value Reference Range Interpretation Comments PROTIME (BEAKER) (test code = 18.2 seconds 11.7-14.7 H 759) INR (BEAKER) (test code = 370) 1.5 <=5.9 RECOMMENDED COUMADIN/WARFARIN INR THERAPY RANGESSTANDARD DOSE: 2.0 - 3.0 Includes: PROPHYLAXIS forvenous thrombosis, systemic embolization; TREATMENT for venous thrombosis and/or pulmonary embolus.HIGH RISK: Target INR is 2.5-3.5 for patients with mechanical heart valves.[id number] 18:36:00 Test Item Value Reference Range Interpretation Comments FIBRINOGEN LEVEL (BEAKER) (test 276 mg/dl 225-434 code = 658) [id number] 18:36:00 Test Item Value Reference Range Interpretation Comments PARTIAL THROMBOPLASTIN TIME 32.8 seconds 22.5-36.0 (BEAKER) (test code = 760) PLATELET [id number] 18:29:00 Test Item Value Reference Range Interpretation Comments PLATELET COUNT (BEAKER) (test 178 K/CU MM 150-450 code = 756) BLOOD GAS, [id number] 18:14:00 Test Item Value Reference Range Interpretation [...] (test code = 1819) 100.0 % GLUCOSE-STAT [id number] 18:14:00 Test Item Value Reference Range Interpretation Comments GLUCOSE RANDOM (BEAKER) (test code 330 mg/dL 70-110 H = 652) HGB/HCT (H&H) - STAT [id number] 18:14:00 Test Item Value Reference Range Interpretation Comments HEMOGLOBIN (BEAKER) (test code = 11.1 g/dL 13.0-16.8 L 410) HEMATOCRIT (BEAKER) (test code = 33.0 % 40.0-50.0 L 411) SODIUM NA-STAT [id number] 18:12:00 Test Item Value Reference Range Interpretation Comments SODIUM (BEAKER) (test code = 381) 138 meq/L 135-148 POTASSIUM-STAT [id number] 18:12:00 Test Item Value Reference Range Interpretation Comments POTASSIUM (BEAKER) (test code = 3.7 meq/L 3.6-5.5 379) CALCIUM, [id number] 18:12:00 Test Item Value Reference Range Interpretation Comments CALCIUM IONIZED (BEAKER) (test 1.18 mmol/L 1.12-1.27 code = 698) PH, BLOOD (BEAKER) (test code = 7.24 1810) BLOOD GAS, [id number] 17:05:00 Test Item Value Reference Range Interpretation [...] (test code = 1819) 70.0 % GLUCOSE-STAT [id number] 17:05:00 Test Item Value Reference Range Interpretation Comments GLUCOSE RANDOM (BEAKER) (test code 320 mg/dL 70-110 H = 652) HGB/HCT (H&H) - STAT [id number] 17:05:00 Test Item Value Reference Range Interpretation Comments HEMOGLOBIN (BEAKER) (test code = 10.8 g/dL 13.0-16.8 L 410) HEMATOCRIT (BEAKER) (test code = 32.0 % 40.0-50.0 L 411) SODIUM NA-STAT [id number] 17:04:00 Test Item Value Reference Range Interpretation Comments SODIUM (BEAKER) (test code = 381) 135 meq/L 135-148 POTASSIUM-STAT [id number] 17:04:00 Test Item Value Reference Range Interpretation Comments POTASSIUM (BEAKER) (test code = 5.4 meq/L 3.6-5.5 379) BLOOD GAS, [id number] 16:34:00 Test Item Value Reference Range Interpretation [...] code = 1819) 60.0 % SODIUM NA-STAT [id number] 16:34:00 Test Item Value Reference Range Interpretation Comments SODIUM (BEAKER) (test code = 381) 134 meq/L 135-148 L POTASSIUM-STAT [id number] 16:34:00 Test Item Value Reference Range Interpretation Comments POTASSIUM (BEAKER) (test code = 5.7 meq/L 3.6-5.5 H 379) GLUCOSE-STAT [id number] 16:34:00 Test Item Value Reference Range Interpretation Comments GLUCOSE RANDOM (BEAKER) (test code 266 mg/dL 70-110 H = 652) HGB/HCT (H&H) - STAT [id number] 16:34:00 Test Item Value Reference Range Interpretation Comments HEMOGLOBIN (BEAKER) (test code = 11.5 g/dL 13.0-16.8 L 410) HEMATOCRIT (BEAKER) (test code = 34.0 % 40.0-50.0 L 411) POTASSIUM-STAT [id number] 16:04:00 Test Item Value Reference Range Interpretation Comments POTASSIUM (BEAKER) (test code = 4.4 meq/L 3.6-5.5 379) BLOOD GAS, [id number] 16:04:00 Test Item Value Reference Range Interpretation [...] code = 1819) 60.0 % SODIUM NA-STAT [id number] 16:04:00 Test Item Value Reference Range Interpretation Comments SODIUM (BEAKER) (test code = 381) 134 meq/L 135-148 L GLUCOSE-STAT [id number] 16:04:00 Test Item Value Reference Range Interpretation Comments GLUCOSE RANDOM (BEAKER) (test code 275 mg/dL 70-110 H = 652) HGB/HCT (H&H) - STAT [id number] 16:04:00 Test Item Value Reference Range Interpretation Comments HEMOGLOBIN (BEAKER) (test code = 11.5 g/dL 13.0-16.8 L 410) HEMATOCRIT (BEAKER) (test code = 34.0 % 40.0-50.0 L 411) BLOOD GAS, [id number] 15:18:00 Test Item Value Reference Range Interpretation [...] (test code = 1819) 100.0 % GLUCOSE-STAT [id number] 15:18:00 Test Item Value Reference Range Interpretation Comments GLUCOSE RANDOM (BEAKER) (test code 200 mg/dL 70-110 H = 652) SODIUM NA-STAT [id number] 15:17:00 Test Item Value Reference Range Interpretation Comments SODIUM (BEAKER) (test code = 381) 141 meq/L 135-148 POTASSIUM-STAT [id number] 15:17:00 Test Item Value Reference Range Interpretation Comments POTASSIUM (BEAKER) (test code = 4.6 meq/L 3.6-5.5 379) HGB/HCT (H&H) - STAT [id number] 15:17:00 Test Item Value Reference Range Interpretation Comments HEMOGLOBIN (BEAKER) (test code = 16.6 g/dL 13.0-16.8 410) HEMATOCRIT (BEAKER) (test code = 49.0 % 40.0-50.0 411) POCT-GLUCOSE [id number] 12:49:00 Test Item Value Reference Range Interpretation Comments POC-GLUCOSE METER 208 mg/dL 70-[address] [facility] 6720 ([facility]) (test code = [place] [facility] 1538) [address] HEMOGLOBIN [id number] 11:52:00 Test Item Value Reference Range Interpretation Comments HEMOGLOBIN A1C ([facility]) (test code = 10.8 % 4.3-6.1 H 368) RAD, CHEST, 2 [id number] 10:32:00Reason for exam:->Pre opFINAL REPORT Chest two views Discussion: Heart, lungs, bones, soft tissues unremarkable. No effusion or pneumothorax. Signed: Vandana Todd Verified Date/Time: 08/18/2017 10:32:09 Reading Location: [facility] Reading Room POCT-GLUCOSE [id number] 08:56:00 Test Item Value Reference Range Interpretation Comments POC-GLUCOSE METER 199 mg/dL 70-[address] [facility] 67 ([facility]) (test code = [place] [facility] 1538) [address] TSH/FREE T4 IF [id number] 05:00:00 Test Item Value Reference Range Interpretation Comments THYROID STIMULATING HORMONE 1.14 uIU/mL 0.35-4.94 ([facility]) (test code = 772) LIPID [id number] 04:46:00 Test Item Value Reference Range Interpretation Comments TRIGLYCERIDES ([facility]) (test code = 336 mg/dL 540) CHOLESTEROL ([facility]) (test code = 215 mg/dL 631) HDL CHOLESTEROL ([facility]) (test code 28 mg/dL = 976) LDL CHOLESTEROL CALCULATED ([facility]) 120 mg/dL (test code = 633) Triglyceride Reference Range: Low Risk <150 Borderline 150-199 High Risk 200-499 Very High Risk >=500Cholesterol Reference Range: Low Risk <200 Borderline 200-239 High Risk >240HDL Cholesterol Reference Range: Low Risk >=60 High Risk <40LDL Cholesterol Reference Range: Optimal <100 Near Optimal 100-129 Borderline 130-159 High 160-189 Very High >=190BASIC METABOLIC [id number] 04:46:00 Test Item Value Reference Range Interpretation [...] PATIEN TS. CBC W/PLT COUNT & AUTO [id number] 04:16:00 Test Item Value Reference Range Interpretation [...] PERCENT (BEAKER) (test code = 2801) TROPONIN [id number] 22:40:00 Test Item Value Reference Range Interpretation [...] failure, acidosis, acute neurological disease, and persistent tachyarrhythmia.[id number] 22:34:00 Test Item Value Reference Range Interpretation Comments MAGNESIUM (BEAKER) (test code = 2.2 mg/dL 1.6-2.6 627) BASIC METABOLIC [id number] 22:34:00 Test Item Value Reference Range Interpretation [...] APPLICABLE FOR DIALYSIS PATIEN TS. HEPATIC FUNCTION [id number] 22:34:00 Test Item Value Reference Range Interpretation [...] = 19 U/L 6-55 347) Specimen slightly lipemicPT/[id number] 22:08:00 Test Item Value Reference Range Interpretation [...] LYMPHOCYTES ABSOLUTE COUNT 2.12 K/ L 1.32-3.57 ([facility]) (test code = 414) MONOCYTES ABSOLUTE COUNT ([facility]) 0.52 K/ L 0.30-0.82 (test code = 415) EOSINOPHILS ABSOLUTE COUNT 0.11 K/ L 0.04-0.54 ([facility]) (test code = 416) BASOPHILS ABSOLUTE COUNT ([facility]) 0.04 K/ L 0.01-0.08 (test code = 417) IMMATURE GRANULOCYTES-RELATIVE 0 % 0-1 PERCENT ([facility]) (test code = 2801) POCT-GLUCOSE [id number] 21:20:00 Test Item Value Reference Range Interpretation Comments POC-GLUCOSE METER 235 mg/dL 70-[address] [facility] 67[address] ([facility]) (test code = [place] 1538) [address]
[2021-07-02] MEDS ORDERED: NA CHLORIDE 0.9% 1,000 ML ONE (10:34)
--- NOTE | 2021-07-02 10:51 | RAD REPORT ---
EXAM DESCRIPTION: US - Lower Extremity Arterial Bilat - 07/02/2021 10:37 am CLINICAL HISTORY: PAIN COMPARISON: No comparisons TECHNIQUE: Bilateral lower extremity arterial Doppler examination was performed with christiana cain FINDINGS: Multifocal multisegmental atheromatous plaquing is seen involving both arterial systems. Triphasic and biphasic waveforms are seen throughout both lower extremity arterial systems to the lev el of the dorsalis pedis arteries. No stenosis or occlusion seen. IMPRESSION: Atherosclerosis is present bilaterally without significant lower extremity flow abnormal ity detected.
[2021-07-02 11:00] LABS: Absolute Lymphocytes (CBC) 1.8 K/uL (0.7-4.9); Hematocrit 39.9 % (39.6-49.0); Lymphocytes % 19.3 % (15.3-44.8); MPV 9.6 fL (7.6-11.3); RBC Red Blood Cell Count 4.15 M/uL (4.33-5.43)
[2021-07-02] MEDS ORDERED: PANTOPRAZOLE 40 MG INJ ONE (11:01)
[2021-07-02] MEDS ORDERED: LEVALBUTEROL 1.25 MG/3 ML NEB ONE (11:01)
[2021-07-02] MEDS ORDERED: IPRATROPIUM BROM 0.5MG/2.5ML ONE (11:01)
[2021-07-02] MEDS ORDERED: FUROSEMIDE 40 MG/4 ML VIAL ONE (11:01)
[2021-07-02 11:07] LABS: Protime INR 1.28
[2021-07-02 11:17] LABS: Albumin 2.5 g/dL (3.4-5.0); Bilirubin Direct 0.6 mg/dL (0-0.2); Bilirubin Total 0.9 mg/dL (0.2-1.0); Magnesium 1.7 mg/dL (1.8-2.4); Potassium 3.6 mmol/L (3.5-5.1); Protein, Total 6.9 g/dL (6.4-8.2); Troponin High Sensitivity 21.4 pg/mL (<58.9)
--- NOTE | 2021-07-02 11:42 | RAD REPORT ---
EXAM DESCRIPTION: RAD - Chest Single View - 07/02/2021 11:33 am CLINICAL HISTORY: COUGH Chest pain. COMPARISON: Chest Single View dated 05/10/2021; Chest Pa And Lat (2 Views) dated 04/17/2021; Chest Sing le View dated 03/17/2021; Chest Single View dated 10/17/2020 FINDINGS: Portable technique limits examination quality. Mild pulmonary edema is seen. The heart is moderately enlarged in size with multilead pacer/defibrill ator device present. Sternotomy wires noted. Small left pleural effusion. IMPRESSION: Mild CHF is suspected.
--- NOTE | 2021-07-02 11:46 | ER ---
Nurse's Notes [facility] [place] Name: Jersey De Leon Jr Age: 66 yrs Sex: Male : 1955 Arrival Date: 07/02/2021 Time: 09:33 Bed 27 Private MD: Diagnosis: Acute on chronic combined systolic (congestive) and diastolic (congestive) heart failure;COPD/ Chronic obstructive pulmonary disease with (acute) exacerbation;Cardiomegaly;Peripheral vascular disease, unspecified-necrotic toes, left foot;Tobacco abuse counseling;Tobacco use;Hypomagnesemia;Chronic respiratory failure with hypercapnia;Hypoxemia;Hypotension, unspecified Presentation: 07/02 10:00 Chief complaint: Spouse and/or significant other states: Dr. Lieberman sent over for wounds iw on his feet. Coronavirus screen: At this time, the client does not indicate any symptoms associated with coronavirus-19. Ebola Screen: Patient negative for fever greater than or equal to 101.5 degrees Fahrenheit, and additional compatible Ebola Virus Disease symptoms Patient denies exposure to infectious person. Patient denies travel to an Ebola-affected area in the 21 days before illness onset. No symptoms or risks identified at this time. Initial Sepsis Screen: Does the patient meet any 2 criteria? No. Patient's initial sepsis screen is negative. Does the patient have a suspected source of infection? No. Patient's initial sepsis screen is negative. Risk Assessment: Do you want to hurt yourself or someone else? Patient reports no desire to harm self or others. Onset of symptoms was July 02, 2021. 10:00 Method Of Arrival: Wheelchair iw 10:00 Acuity: RODERICK 3 iw 12:53 Acuity: RODERICK 2 iw Historical: - Allergies: 10:00 Morphine; iw 10:00 Paxil; iw - Home Meds: 10:00 alprazolam 0.5 mg Oral Tb24 2 tabs once daily [Active]; bumetanide 1 mg Oral tab 2 tabs iw 2 times per day [Active]; Entresto 24-26 mg Oral tab 1 tab 2 times per day [Active]; hydrocodone-acetaminophen 2.5-325 mg Oral tab 1 tab every 6 hours [Active]; spironolactone 25 mg Oral tab 1 tab once daily [Active]; - PMHx: 10:00 CAD; Diabetes - NIDDM; High Cholesterol; Kidney stones; Leukemia; iw - Immunization history:: Client reports having NOT received the Covid vaccine. - Social history:: Smoking status: Patient reports the use of cigarette tobacco products, smokes one pack cigarettes per day. Screenin:28 Abuse screen: Denies threats or abuse. Nutritional screening: No deficits noted. vg1 Tuberculosis screening: No symptoms or risk factors identified. Fall Risk No fall in past 12 months (0 pts). No secondary diagnosis (0 pts). IV access (20 points). Ambulatory Aid- None/Bed Rest/Nurse Assist (0 pts). Gait- Normal/Bed Rest/Wheelchair (0 pts) Mental Status- Oriented to own ability (0 pts). Total Gale Fall Scale indicates No Risk (0-24 pts). Assessment: 10:30 General: Appears uncomfortable, Behavior is calm, cooperative. Pain: Complains of pain vg1 in right foot, left foot, right leg and left leg Pain currently is 10 out of 10 on a pain scale. Quality of pain is described as aching. Neuro: [place] Agitation-Sedation Scale (RASS): 0 - Alert and Calm Level of Consciousness is awake, alert, obeys commands, Oriented to person, place, time, situation. Cardiovascular: Patient's skin is warm and dry. Respiratory: Airway is patent Respiratory effort is even, labored, Respiratory pattern is tachypnea. GI: Abdomen is distended, Abd is soft X 4 quads Abd is non tender. : No signs and/or symptoms were reported regarding the genitourinary system. EENT: No signs and/or symptoms were reported regarding the EENT system. Derm: Skin is black, red, appears to be black on Left second toe; wounds appear to be on Left big toe and third toe Skin temperature is hot Wound noted JEAN-PAUL lower extremities. Musculoskeletal: Swelling present in Right foot, left foot, JEAN-PAUL lower extremities. Vital Signs: 10:00 BP 94 / 62; Pulse 93; Resp 16; Temp 97.7; Pulse Ox 94% on R/A; Weight 99.79 kg; Height iw 6 ft. 1 in. (185.42 cm); 10:00 Body Mass Index 29.03 (99.79 kg, 185.42 cm) iw ED Course: 09:33 Patient arrived in ED. rg4 09:37 Hernan Sena MD is Attending Physician. mikaela 10:00 Triage completed. iw 10:02 Arm band placed on. iw 10:26 Aarti Stone, RN is Primary Nurse. vg1 10:39 US LE Arterial Bilateral In Process Unspecified. EDMS 10:45 Initial lab(s) drawn, by me, sent to lab. COVID swab sent to lab. Inserted saline lock: vg1 22 gauge in left antecubital area, using aseptic technique. Blood collected. 11:28 Patient has correct armband on for positive identification. Bed in low position. Call vg1 light in reach. Side rails up X2. Adult w/ patient. Client placed on continuous cardiac and pulse oximetry monitoring. NIBP monitoring applied. radiation monitor on. 11:35 XRAY Chest (1 view) In Process Unspecified. EDMS 11:42 Addison Sepulveda MD is Hospitalizing Provider. mikaela 16:51 No provider procedures requiring assistance completed. Patient admitted, IV remains in ld1 place. Administered Medications: 10:11 CANCELLED (Duplicate Order): NS 0.9% 1000 ml IV at 125 ml/hr continuous mikaela 11:15 Drug: NS 0.9% 1000 ml Route: IV; Rate: 75 ml/hr; Site: left antecubital; vg1 11:16 Drug: ProTONIX (pantoprazole) 40 mg Route: IVP; Site: left antecubital; vg1 11:18 Drug: Lasix (furosemide) 40 mg Route: IVP; Site: left antecubital; vg1 11:35 Drug: Xopenex (levalbuterol) 2.5 mg Route: Inhalation; vg1 11:35 Drug: AtroVENT (ipratropium) Aerosol 0.5 mg Route: Inhalation; vg1 12:40 Drug: Zosyn (piperacillin-tazobactam) 3.375 grams Route: IVPB; Infused Over: 60 mins; ld1 Site: left antecubital; 13:13 Drug: Magnesium Sulfate 1 grams Route: IVPB; Infused Over: 1 hrs; Site: left ld1 antecubital; 15:01 Drug: Nicoderm CQ Patch 21 mg/24 hr 21 mg Route: Transdermal; Site: affected area; ld1 Medication: 11:28 VIS not applicable for this client. vg1 Outcome: 11:46 Decision to Hospitalize by Provider. mikaela 16:51 Admitted to ICU accompanied by nurse, accompanied by tech, via stretcher, room 1, with ld1 chart, Report called to STAN Duval 16:51 Condition: stable 16:51 Instructed on the need for admit. 16:52 Patient left the ED. ld1 Signatures: Dispatcher [employer] EDHernan Valverde MD MD cha Williams, Irene, RN RN iw Chase, Kiley 4 Aarti Stone RN RN vg1 Lizeth Russell RN RN ld1 Corrections: (The following items were deleted from the chart) 10:01 10:00 Resp 16bpm; 99.79 kg; Height 6 ft. 1 in.; BMI: 29.0; iw iw 10:02 10:00 BP 94 / 62; Pulse 50bpm; Resp 16bpm; Pulse Ox 94% RA; 99.79 kg; Height 6 ft. 1 iw in.; BMI: 29.0; iw 10:26 10:00 BP 94 / 62; Pulse 93bpm; Resp 16bpm; Pulse Ox 94% RA; 99.79 kg; Height 6 ft. 1 iw in.; BMI: 29.0; iw
--- NOTE | 2021-07-02 11:46 | EDPHYS ---
Physician Documentation [facility] Name: Jersey De Leon Jr Age: 66 yrs Sex: Male : 1955 Arrival Date: 07/02/2021 Time: 09:33 Bed 27 Private MD: ED Physician Hernan Sena HPI: 07/02 10:46 This 66 yrs old Male presents to ER via Wheelchair with complaints of Wound mikaela Check. 10:46 Patient presents to ED for recheck of: cellulitis. The affected area is on the right mikaela foot and left foot. Previous treatment: Previous recheck: today. Progress: The patient reports decreased redness, swelling, necrosis. The patient has experienced similar episodes in the past, several times. Historical: - Allergies: 10:00 Morphine; iw 10:00 Paxil; iw - Home Meds: 10:00 alprazolam 0.5 mg Oral Tb24 2 tabs once daily [Active]; bumetanide 1 mg Oral tab 2 tabs iw 2 times per day [Active]; Entresto 24-26 mg Oral tab 1 tab 2 times per day [Active]; hydrocodone-acetaminophen 2.5-325 mg Oral tab 1 tab every 6 hours [Active]; spironolactone 25 mg Oral tab 1 tab once daily [Active]; - PMHx: 10:00 CAD; Diabetes - NIDDM; High Cholesterol; Kidney stones; Leukemia; iw - Immunization history:: Client reports having NOT received the Covid vaccine. - Social history:: Smoking status: Patient reports the use of cigarette tobacco products, smokes one pack cigarettes per day. ROS: 11:08 Constitutional: Negative for fever, chills, and weight loss, Eyes: Negative for injury, mikaela pain, redness, and discharge, ENT: Negative for injury, pain, and discharge, Neck: Negative for injury, pain, and swelling, Cardiovascular: Negative for chest pain, palpitations, and edema, Abdomen/GI: Negative for abdominal pain, nausea, vomiting, diarrhea, and constipation, Back: Negative for injury and pain, : Negative for injury, bleeding, discharge, and swelling, Neuro: Negative for headache, weakness, numbness, tingling, and seizure, Psych: Negative for depression, anxiety, suicide ideation, homicidal ideation, and hallucinations, Allergy/Immunology: Negative for hives, rash, and allergies, Endocrine: Negative for neck swelling, polydipsia, polyuria, polyphagia, and marked weight changes, Hematologic/Lymphatic: Negative for swollen nodes, abnormal bleeding, and unusual bruising. 11:08 Respiratory: Positive for cough, shortness of breath, wheezing, expiratory. 11:08 MS/extremity: Positive for erythema, pain, swelling, tenderness, of the right leg and left leg. Exam: 11:08 Constitutional: This is a well developed, well nourished patient who is awake, alert, mikaela and in no acute distress. Head/Face: Normocephalic, atraumatic. Eyes: Pupils equal round and reactive to light, extra-ocular motions intact. Lids and lashes normal. Conjunctiva and sclera are non-icteric and not injected. Cornea within normal limits. Periorbital areas with no swelling, redness, or edema. ENT: Nares patent. No nasal discharge, no septal abnormalities noted. Tympanic membranes are normal and external auditory canals are clear. Oropharynx with no redness, swelling, or masses, exudates, or evidence of obstruction, uvula midline. Mucous membranes moist. Neck: Trachea midline, no thyromegaly or masses palpated, and no cervical lymphadenopathy. Supple, full range of motion without nuchal rigidity, or vertebral point tenderness. No Meningismus. Chest/axilla: Normal chest wall appearance and motion. Nontender with no deformity. No lesions are appreciated. Back: No spinal tenderness. No costovertebral tenderness. Full range of motion. Male : Normal genitalia with no discharge or lesions. Psych: Awake, alert, with orientation to person, place and time. Behavior, mood, and affect are within normal limits. 11:08 Cardiovascular: Rate: normal, Rhythm: regular, Pulses: Pulses are 3+ in right radial artery, right femoral artery, left radial artery, left femoral artery, left carotid pulse and right carotid pulse. Heart sounds: murmur, systolic, grade 2 over 6, Edema: 3+ edema to level of left midcalf and right midcalf, JVD: is noted bilaterally, to the angle of the jaw. 11:08 ECG was reviewed by the Attending Physician. 11:08 Musculoskeletal/extremity: Pulses: are absent in the right posterior tibial artery, right dorsalis pedis artery, left posterior tibial artery and left dorsalis pedis artery, Edema, 4+ to the left midcalf and right midcalf is noted, DVT Exam: swelling, erythema, that is moderate, left necrotic toes. 11:40 Respiratory: mild respiratory distress is noted, Respirations: labored breathing, that mikaela is mild, Breath sounds: decreased breath sounds, that are mild, rhonchi, that are mild, stridor, is not appreciated, Respiratory rate: 22 Vital Signs: 10:00 BP 94 / 62; Pulse 93; Resp 16; Temp 97.7; Pulse Ox 94% on R/A; Weight 99.79 kg; Height iw 6 ft. 1 in. (185.42 cm); 10:00 Body Mass Index 29.03 (99.79 kg, 185.42 cm) iw MDM: 09:37 Patient medically screened. [facility] 11:39 Differential diagnosis: cellulitis. Data reviewed: vital signs, nurses notes, lab test mikaela result(s), EKG, radiologic studies. Data interpreted: pvc monitor:. 07/02 10:11 Order name: Basic Metabolic Panel; Complete Time: 11:25 [facility] 07/02 10:11 Order name: CBC with Diff; Complete Time: 11:25 [facility] 07/02 10:11 Order name: LFT's; Complete Time: 11:25 [facility] 07/02 10:11 Order name: Magnesium; Complete Time: 11:25 [facility] 07/02 10:11 Order name: NT PRO-BNP; Complete Time: 11:25 [facility] 07/02 10:11 Order name: PT-INR; Complete Time: 11:25 [facility] 07/02 10:11 Order name: Troponin HS; Complete Time: 11:25 [facility] 07/02 10:11 Order name: XRAY Chest (1 view); Complete Time: 11:47 [facility] 07/02 10:11 Order name: SARS-COV-2 RT PCR (Document "Date of Onset" if Symptomatic); Complete Time: mikaela 13:04 07/02 10:11 Order name: US LE Arterial Bilateral; Complete Time: 11:25 [facility] 07/02 10:45 Order name: Type And Screen [facility] 07/02 11:26 Order name: ABG; Complete Time: 11:55 [facility] 07/02 12:26 Order name: Lactate 3 07/02 13:07 Order name: Chest Single View XRAY 3 07/02 10:11 Order name: EKG; Complete Time: 10:11 [facility] 07/02 10:11 Order name: Cardiac monitoring; Complete Time: 11:23 [facility] 07/02 10:11 Order name: EKG - Nurse/Tech; Complete Time: 11:23 [facility] 07/02 10:11 Order name: IV Saline Lock; Complete Time: 10:50 [facility] 07/02 10:11 Order name: Labs collected and sent; Complete Time: 10:50 [facility] 07/02 10:11 Order name: O2 Per Protocol; Complete Time: 10:50 [facility] 07/02 10:11 Order name: O2 Sat Monitoring; Complete Time: 10:50 [facility] 07/02 11:44 Order name: Labs - recollect needed: type \\T\\ screen missing barcode dh3 EC:08 Rate is 94 beats/min. Rhythm is regular. QRS [place] is Normal. [place] interval is prolonged mikaela at 210 msec. QRS interval is prolonged. QT interval is normal. No Q waves. T waves are Inverted. Administered Medications: 10:11 CANCELLED (Duplicate Order): NS 0.9% 1000 ml IV at 125 ml/hr continuous mikaela 11:15 Drug: NS 0.9% 1000 ml Route: IV; Rate: 75 ml/hr; Site: left antecubital; vg1 11:16 Drug: ProTONIX (pantoprazole) 40 mg Route: IVP; Site: left antecubital; vg1 11:18 Drug: Lasix (furosemide) 40 mg Route: IVP; Site: left antecubital; vg1 11:35 Drug: Xopenex (levalbuterol) 2.5 mg Route: Inhalation; vg1 11:35 Drug: AtroVENT (ipratropium) Aerosol 0.5 mg Route: Inhalation; vg1 12:40 Drug: Zosyn (piperacillin-tazobactam) 3.375 grams Route: IVPB; Infused Over: 60 mins; ld1 Site: left antecubital; 13:13 Drug: Magnesium Sulfate 1 grams Route: IVPB; Infused Over: 1 hrs; Site: left ld1 antecubital; 15:01 Drug: Nicoderm CQ Patch 21 mg/24 hr 21 mg Route: Transdermal; Site: affected area; ld1 Disposition Summary: 07/02/21 11:46 Hospitalization Ordered Hospitalization Status: Inpatient Admission mikaela Provider: Sepulveda, Addison mikaela Condition: Stable mikaela Problem: new mikaela Symptoms: have improved mikaela Bed/Room Type: Standard mikaela Location: Intensive Care Unit(07/02/21 16:04) kim Room Assignment: 1-(07/02/21 16:04) kim Diagnosis - Acute on chronic combined systolic (congestive) and diastolic (congestive) heart mikaela failure - COPD/ Chronic obstructive pulmonary disease with (acute) exacerbation mikaela - Cardiomegaly mikaela - Peripheral vascular disease, unspecified - necrotic toes, left foot mikaela - Tobacco abuse counseling mikaela - Tobacco use mikaela - Hypomagnesemia mikaela - Chronic respiratory failure with hypercapnia mikaela - Hypoxemia mikaela - Hypotension, unspecified mikaela Forms: - Medication Reconciliation Form mikaela - SBAR form mikaela Signatures: Dispatcher [employer] EDHernan Valverde MD MD cha Williams, Irene RN Leslie Bruce 3 Bay Dubose RN RN ja1 Garcia, Victoria, RN RN [email or web address] Lizeth Russell RN RN yao1 Shari Wiley PA PA sb3 Corrections: (The following items were deleted from the chart) 10:11 10:11 NS 0.9% 1000 ml IV at 125 ml/hr continuous ordered. mikaela mikaela 16:04 11:46 Telemetry/MedSurg (Inpatient) mikaela ja1 16:04 11:46 mikaela ja1
[2021-07-02 11:48] LABS: Arterial Blood Carboxyhemoglob 4.8 % (0-1.5); Blood Gas Oxyhemoglobin 76.3 % (94-97)
[2021-07-02] MEDS ORDERED: NICOTINE 21 MG/PAT TD ONE (12:12)
[2021-07-02] MEDS ORDERED: MAGNESIUM SULFATE 1 gm IVPB 1 GM/100 ML BAG IV ONE (12:13)
[2021-07-02] MEDS ORDERED: NA CHLORIDE 0.9% 100 ML ONE (12:14)
[2021-07-02] MEDS ORDERED: PIPERACIL/TAZO 3.375 GM VIAL IV ONE (12:14)
[2021-07-02] MEDS ORDERED: ONDANSETRON 4 MG/2 ML VIAL IV PRN (13:20)
[2021-07-02] MEDS ORDERED: SODIUM CHLORIDE 0.9% 10ML INJ IV PRN (13:20)
[2021-07-02] MEDS ORDERED: ACETAMINOPHEN 500 MG TAB PO PRN (13:20)
[2021-07-02] MEDS: ENOXAPARIN 40 MG/0.4 ML SQ SCH (14:00)
[2021-07-02] MEDS ORDERED: ENOXAPARIN 40 MG/0.4 ML SQ ONE (14:49)
[2021-07-02] MEDS ORDERED: VANCOMYCIN 1 GM in NA CHLORIDE 0.9% 250 ML IVPB SCH (15:34)
--- NOTE | 2021-07-02 16:26 | P.HP ---
Certification for Inpatient Patient admitted to: Inpatient With expected LOS: >2 Midnights Patient will require the following post-hospital care: None Practitioner: I am a practitioner with admitting privileges, knowledge of patient current condition, hospital course, and medical plan of care. Services: Services provided to patient in accordance with Admission requirements found in Title 42 Section 412.3 of the Code of Federal Regulations Patient History Date of Service: 07/02/21 Reason for admission: PAD, Hypotension, CHF History of Present Illness: Patient is a 66 y/o male with PMH of ALL in remission, CAD s/p CABG and cardiac stents x4, CHF with EF <20% on 03/17/2021 and pacemaker/defibrillator, vascular disease, atrial fibrillation not on chronic anticoagulation, IDDM, COPD on Home O2, DORY not on CPAP, COVID 19 longhauler manifesting with chronic decreased mobility and endurance since 09/2020, history of PE 03/11 COVID, COPD, severe pulmonary HTN, traction bronchiectasis and pulmonary fibrosis, current 1ppd tobacco use disorder who was sent to ED by Dr. Lieberman for a wound check. L 2nd toe and part of L 3rd toe appearing necrotic. Arterial US BLE showed atherosclerosis but no significant blockage. Labs significant for magnesium 1.7, BNP 9000. ABG resulted pCO2 53, pO2 43, HCO3 36. Patient became hypotensive in the ED- 60/52 so central line was placed and patient was started on phenylephrine. There is concern for cardiogenic shock given rapid drop in blood pressure. Septic shock unlikely as patient is tachypneic but is not febrile or tachycardic. Dr. Lieberman and cardiology notified about patient's condition and agreed to consult. Admitting patient to the ICU for further evaluation and treatment. Allergies paroxetine HCl [From Paxil] Allergy (Intermediate, Verified 01/15/21 09:44) AMS morphine Adverse Reaction (Mild, Verified 01/15/21 09:44) Shortness of breath Home Medications: Aspirin 81 mg PO DAILY 08/16/17 Atorvastatin Calcium [Lipitor] 80 mg PO BEDTIME 08/16/17 Promethazine HCl 25 mg PO TID PRN 08/16/17 ALPRAZolam [Alprazolam] 1 tab PO TID 01/15/21 Albuterol Sulfate [Albuterol Sulfate Hfa] 2 puff IN TID PRN 01/15/21 Budesonide/Formoterol Fumarate [Budesonide-Formoterol 160-4.5] 1 dose IN BID 01/15/21 Pyridoxine [Vitamin B-6*] 1 tab PO DAILY 01/15/21 Sacubitril/Valsartan [Entresto 24 mg-26 mg Tablet] 1 tab PO BID 01/15/21 Insulin Glargine,Hum.rec.anlog [[place] Solostar] 20 unit SQ DAILY 03/17/21 Insulin Lispro [Humalog] See Protocol SQ AC 03/17/21 Bumetanide [Bumex*] 1 mg PO BID #70 tab 03/18/21 - Past Medical/Surgical History Has patient received pneumonia vaccine in the past: No Diabetic: Yes -: ALL -: atrial fibrillation -: CAD -: HLD -: COPD on Home O2, pulmonary hypertension -: DM- insulin dependent -: CHF -: history of PE -: COVID 19 longhauler -: heart stents -: wrist surgery -: finger surgery -: CABG -: pacemaker, defibrillator -: endarterectomy Psychosocial/ Personal History: Patient lives at home with his . - Family History Father -: Lung disease Brother -: Liver disease - Social History Smoking Status: Current every day smoker Alcohol use: No CD- Drugs: No Caffeine use: Yes Place of Residence: Home Review of Systems 10-point ROS is otherwise unremarkable Musculoskeletal: Leg Pain Physical Examination - Vital Signs Temperature: 97.7 F Blood Pressure: 68/55 Pulse: 91 Respirations: 26 Pulse Ox (%): 92 - Physical Exam General: In no apparent distress, Other (somnolent) HEENT: Atraumatic, EOMI, Sclerae nonicteric Neck: Supple, 2+ carotid pulse no bruit Respiratory: Diminished, Crackles/rales Cardiovascular: Regular rate/rhythm, Normal S1 S2 Gastrointestinal: Normal bowel sounds, No tenderness, Distended Musculoskeletal: No contractures, Erythema Integumentary: Rash(es), Skin breakdown, Tenderness/swelling, Erythema, Warmth Neurological: Normal speech, Normal tone, Sensation intact, Normal affect - Studies Laboratory Data (last 24 hrs) 07/02/21 10:44: PT 14.1 H, INR 1.28 07/02/21 10:44: WBC 9.5, Hgb 12.9 L, Hct 39.9, Plt Count 177 07/02/21 10:44: Sodium 139, Potassium 3.6, BUN 41 H, Creatinine 1.03, Glucose 129 H, Magnesium 1.7 L, Total Bilirubin 0.9, AST 11 L, ALT 12, Alkaline Phosphatase 197 H Assessment and Plan - Problems (Diagnosis) (1) Peripheral arterial disease Current Visit: Yes Status: Acute (2) Hypotension Current Visit: Yes Status: Acute Qualifiers: Hypotension type: unspecified hypotension type Qualified Code(s): I95.9 - Hypotension, unspecified (3) Acute on chronic systolic heart failure Current Visit: Yes Status: Acute (4) Atrial fibrillation Current Visit: No Status: Chronic Qualifiers: Atrial fibrillation type: unspecified Qualified Code(s): I48.91 - Unspecified atrial fibrillation (5) CAD (coronary artery disease) Current Visit: No Status: Chronic Qualifiers: Coronary Disease-Associated Artery/Lesion type: unspecified vessel or lesion type [place] vs. transplanted heart: [place] heart Associated angina: without angina Qualified Code(s): I25.10 - Atherosclerotic heart disease of [place] coronary artery without angina pectoris (6) COPD (chronic obstructive pulmonary disease) Current Visit: Yes Status: Chronic Qualifiers: COPD type: unspecified COPD Qualified Code(s): J44.9 - Chronic obstructive pulmonary disease, unspecified (7) HLD (hyperlipidemia) Current Visit: No Status: Chronic Qualifiers: Hyperlipidemia type: unspecified Qualified Code(s): E78.5 - Hyperlipidemia, unspecified (8) Lymphedema Current Visit: Yes Status: Chronic (9) Pulmonary hypertension Current Visit: No Status: Chronic (10) T2DM (type 2 diabetes mellitus) Current Visit: Yes Status: Chronic Qualifiers: Diabetes mellitus care home insulin use: with care home use Diabetes mellitus complication status: with skin complications Diabetes mellitus complication detail: with other skin ulcer Qualified Code(s): E11.622 - Type 2 diabetes mellitus with other skin ulcer; Z79.4 - residential (current) use of insulin (11) Tobacco use Current Visit: Yes Status: Chronic (12) Necrosis of toe Current Visit: Yes Status: Acute (13) Hypomagnesemia Current Visit: Yes Status: Acute - Plan Cardiogenic Shock Rule Out: unexplained hypotension Sepsis Rule Out: lactate and WBC WNL. afebrile. hypotensive and tachypneic. blood and urine cultures sent. -patient admitted to ICU -continue phenylephrine as needed for hypotension -vanc and meropenem for cellulitus BLE. covering for pseudomonas as patient states that he scraped his leg while in a hot tub -cont on supplemental O2 and breathing treatments PRN -cardiology consulted for PAD -achs accu checks with mild sliding scale insulin -lasix for volume overload -Dr. Lieberman consulted for necrotic toes -wound healing and PT consulted -monitor and replete electrolytes per protocol -1500 cc/day fluid restriction, daily weights, q12h I&Os -GI and VTE ppx Discharge Plan: Home Plan to discharge in: Greater than 2 days - Advance Directives Does patient have a Living Will: No Does patient have a Durable POA for Healthcare: No - Code Status/Comfort Care Code Status Assessed: Yes (DNR) Critical Care: No Time Spent Managing Pts Care (In Minutes): 70
[2021-07-02] MEDS: INSULIN -REGULAR HUMAN 50 UNIT/0.5 ML ML SQ SCH ×2 (16:30→20:53)
[2021-07-02] MEDS ORDERED: BENZONATATE 100 MG CAP PO ONE (16:31)
[2021-07-02] MEDS ORDERED: PIPER TAZO 3.375 GM in NA CHLORIDE 0.9% 100 ML IV SCH (17:00)
[2021-07-02] MEDS: Meropenem 1,000 MG in NA CHLORIDE 0.9% 100 ML IV SCH (17:36)
[2021-07-02] MEDS: FUROSEMIDE 40 MG/4 ML VIAL IV SCH (17:36)
[2021-07-02] MEDS: VANCOMYCIN 1.75 GM in NA CHLORIDE 0.9% 500 ML IVPB SCH (17:36)
[2021-07-02] MEDS ORDERED: CEFEPIME 1 GM in NA CHLORIDE 0.9% 100 ML IV SCH (21:00)
[2021-07-03] MEDS: Meropenem 1,000 MG in NA CHLORIDE 0.9% 100 ML IV SCH ×3 (00:25→17:56)
[2021-07-03] MEDS: VANCOMYCIN 1.75 GM in NA CHLORIDE 0.9% 500 ML IVPB SCH ×2 (04:43→17:41)
[2021-07-03] MEDS: ALBUTEROL 2.5 MG/3 ML NEB SOL NEB PRN ×2 (05:25→20:10)
[2021-07-03 05:26] LABS: Absolute Lymphocytes (CBC) 1.7 K/uL (0.7-4.9); Lymphocytes % 15.4 % (15.3-44.8); MPV 9.8 fL (7.6-11.3); RBC Red Blood Cell Count 3.96 M/uL (4.33-5.43)
[2021-07-03] MEDS: MEDIHONEY 44 ML TOPICAL TUBE TOP SCH (05:38)
[2021-07-03 06:02] LABS: Albumin 2.4 g/dL (3.4-5.0); Bilirubin Total 1.2 mg/dL (0.2-1.0); Magnesium 1.8 mg/dL (1.8-2.4); Potassium 3.8 mmol/L (3.5-5.1); Protein, Total 6.7 g/dL (6.4-8.2); Thyroid Stimulating Hormone 2.88 uIU/mL (0.360-3.740)
--- NOTE | 2021-07-03 06:32 | P.PN ---
Date of Service: 07/03/21 Subjective: improved, more alert/awake BP better states BP cuff is accurate only on left arm states he took a benzo before coming to ED yesterday due to anxiety with hospitals, which is why he was sleepy ROS: 10 point ROS as noted above, otherwise negative Physical exam GEN: Alert, oriented, NAD HEENT: Normal conjunctiva, sclera anicteric CV: irregularly irregular rhythm, trace-1+ b/l lower extremity edema Pulm: +crackles bilaterally, nonlabored respirations ABD: Soft, nontender, nondistended Integumentary: RLE: erythema from foot to knee in sock patter with posterior lower extremity with large superficial abrasion, LLE: gangrenous toes, erythema of foot Neuro: Normal speech, normal affect Problem List Hypotension / shock seconday to sepsis vs cardiogenic acute on chronic systolic CHF, EF <20%, AICD/PM in place Atrial fibrillation, chronic CAD COPD, chronic pulmonary hypertension DM2, insulin dependent covid kavon h/o ALL started on phenylephrine on admission, titrated off this morning measure BP on left arm only shock likely multifactorial, cardiogenic and possibly sepsis, difficult to rule out given R leg erythema/cellulitis and L toes continue vanc / meropenem for cellulitis / diabetic toe infection; cover pseudomonas - pt reported in/around hot tub cardiology consulted for PAD and CHF Dr. Lieberman consulted for wounds / gangrenous toes suspect osteomyelitis plan for CT dissection protocol and CT foot tomorrow PT consulted claus with nan patient overloaded, acute CHF nephrology consulted Code: DNR Dispo: home, ~2 days
--- NOTE | 2021-07-03 06:38 | P.INFCA ---
Sepsis Focused Assessment - Focused Assessment Complete? Sepsis Focused Assessment Completed?: Yes - Sepsis Screen Result Septic Shock: Positive (hypotensive, requiring pressors, with source of infection; cannot rule out sepsis / septic shock at this time) - Evaluation Current stage of sepsis: Septic shock - Vital Signs Reviewed: Yes Heart rate: 96 Blood Pressure: 99/67 Respiratory Rate: 22 O2 Sat by Pulse Oximetry: 98 - Examination Date exam was performed: 07/02/21 Time exam was performed: 15:00 Heart: Regular rate/rhythm Lungs: Crackles, Diminished air movement Peripheral pulses: 1+ Faint Peripheral pulse location: Posterior tibial Capillary refill: <2 Seconds Skin examination: Normal turgor, Pale Comments: alert/oriented x3, on pressors
[2021-07-03] MEDS: INSULIN -REGULAR HUMAN 50 UNIT/0.5 ML ML SQ SCH ×4 (07:30→21:00)
[2021-07-03] MEDS ORDERED: PNEUMOCOCCAL VACCINE 0.5 ML IMVAC ONE (09:00)
[2021-07-03] MEDS ORDERED: MAGNESIUM SULFATE 1 gm IVPB 1 GM/100 ML BAG IV ONE (09:00)
--- NOTE | 2021-07-03 09:12 | RAD REPORT ---
EXAM DESCRIPTION: USExtrem Venous W Compress Bil07/03/2021 8:24 am CLINICAL HISTORY: Leg pain COMPARISON: none FINDINGS: The common femoral, superficial femoral, popliteal and posterior tibial veins bilaterally are compressible and demonstrate augmentation. Doppler demonstrates good flow. Right femoral line in place Grayscale, color and spectral analysis performed on all vessels IMPRESSION: No evidence of deep venous thrombosis involving either lower extremity.
[2021-07-03] MEDS: PANTOPRAZOLE 40 MG INJ IVP SCH (09:34)
[2021-07-03] MEDS: FUROSEMIDE 40 MG/4 ML VIAL IV SCH ×2 (09:34→20:50)
[2021-07-03] MEDS: ENOXAPARIN 40 MG/0.4 ML SQ SCH (09:35)
--- NOTE | 2021-07-03 13:41 | P.CNS ---
Date of Consult: 07/03/21 Reason for Consult: Volume overload, renal dysfxn Requesting Physician: Addison Sepulveda Chief Complaint: PAD, Hypotension, CHF History of Present Illness: 66M w/ PMHx of ALL in remission, CAD s/p CABG s/p PCI, chronic systolic HF LVEF <20% on 03/17/2021 s/p pacemaker/defibrillator, severe pulmo Htn, PVD, afib not on AC, DM, COPD on home O2, chronic active cig smoker, hx of long covid syndrome, history of PE 2/2 COVID, COPD, traction bronchiectasis and pulmonary fibrosis, who p/w necrotic wounds on L toes, found to be volume overloaded & hypotensive, admitted for further eval & mgnt. Allergies paroxetine HCl [From Paxil] Allergy (Intermediate, Verified 01/15/21 09:44) AMS morphine Adverse Reaction (Mild, Verified 01/15/21 09:44) Shortness of breath Home Medications: Promethazine HCl 25 mg PO TID PRN 08/16/17 ALPRAZolam [Alprazolam] 1 tab PO TID 01/15/21 Albuterol Sulfate [Albuterol Sulfate Hfa] 2 puff IN TID PRN 01/15/21 Budesonide/Formoterol Fumarate [Budesonide-Formoterol 160-4.5] 1 dose IN BID 01/15/21 Insulin Glargine,Hum.rec.anlog [[place]halie Palma Solostar] 20 unit SQ DAILY 03/17/21 Insulin Lispro [Humalog] See Protocol SQ AC 03/17/21 Amiodarone HCl [Cordarone Tab] 200 mg PO BID 07/02/21 Furosemide 80 mg PO DAILY 07/02/21 Potassium Chloride 20 meq PO DAILY 07/02/21 Sacubitril/Valsartan [Entresto 49 mg-51 mg Tablet] 1 tab PO BID 07/02/21 - Past Medical/Surgical History Diabetic: Yes -: ALL -: atrial fibrillation -: CAD -: HLD -: COPD on Home O2, pulmonary hypertension -: DM- insulin dependent -: CHF -: history of PE -: COVID 19 longhauler -: heart stents -: wrist surgery -: finger surgery -: CABG -: pacemaker, defibrillator -: endarterectomy Psychosocial/ Personal History: Patient lives at home with his . - Family History Father Medical History: Lung disease Brother Medical History: Liver disease - Social History Smoking Status: Current every day smoker Alcohol use: No CD- Drugs: No Caffeine use: Yes Place of Residence: Home Physical Examination Temp Pulse Resp BP Pulse Ox 97.6 F 101 H 31 H 81/59 L 91 07/03/21 12:00 07/03/21 12:45 07/03/21 12:45 07/03/21 12:45 07/03/21 12:45 Conclusions/Impression: # Acute on chronic CHF Hx of ALL in remission, CAD s/p CABG s/p PCI, chronic systolic HF LVEF <20% on 03/17/2021 s/p pacemaker/defibrillator, severe pulmo Htn, afib not on AC BP low Start inotrope Increase lasix to 160 mg IV q6h Start ashlee 100 mg po bid Strict low Na diet < 2g/d # Acute on chronic respi failure Hx of severe pulmo Htn, COPD on home O2, chronic active cig smoker, hx of long covid syndrome, history of PE 2/2 COVID, traction bronchiectasis and pulmonary fibrosis ABG showed hypoxia Respi mngt per other services # Metabolic alkalosis [place] po fluid intake # Wound on L toes Hx of PVD Per other services # DM2 Mngt per primary team
[2021-07-03] MEDS ORDERED: FUROSEMIDE 40 MG/4 ML VIAL IV SCH (15:00)
--- NOTE | 2021-07-03 15:47 | P.PN ---
Date of Service: 07/03/21 Subjective: Patient is awake and alert. Patient feels better. Patient has no fever or chills. Patient has no pain. Objective: His mean arterial pressure is 70 right now. The remainder of the vital signs are stable. Patient is afebrile. Patient has been off vasopressors since 11 AM this morning. Laboratory data reviewed. Venous Doppler did not show any evidence of thrombosis. Lower legs have slightly less swelling, but are still red and warm. No change in the gangrenous toes. Assessment: Bilateral lower extremity cellulitis with dry gangrene in the left foot involving several toes. Severe peripheral vascular disease. Plan: Continue medical optimization of the patient and when appropriate patient will need either a CT angiogram or an aortogram to evaluate his arterial tree. We will await cardiology's recommendation. Continue antibiotics and wound care as ordered. CC:
[2021-07-03] MEDS: SPIRONOLACTONE 100 MG TAB PO SCH ×2 (17:54→21:46)
--- NOTE | 2021-07-03 18:00 | EKG ---
Test Date: 2021-07-02 Test Time: 11:01:35 Fluorescent Lamp Replacer: ALYSON MEASUREMENT RESULTS: Intervals: Rate: 94 ID: [id number] QRSD: 144 QT: 398 QTc: 497 [place]: P: 86 ID: [id number] QRS: -68 T: 119 INTERPRETIVE STATEMENTS: Sinus rhythm with 1st degree AV block with occasional premature ventricular complexes and premature atrial complexes Left axis deviation Left bundle branch block Abnormal ECG Electronically Signed On 07-03-21 17:58:19 CDT by Ruslan Roy
[2021-07-03] MEDS: JUVEN PACKET PO SCH (21:00)
--- NOTE | 2021-07-03 22:45 | CON ---
Date of Consultation: 07/03/2021 Reason For Consultation: Bilateral feet wound and possible peripheral vascular disease. History Of Present Illness: This is an elderly gentleman who is known to have history of coronary ar tab disease, status post coronary artery bypass surgery and known to have severe systolic congestive heart failure with ejection fraction known to be in the mid 20s. Has history of diabetes for many years and presented to the emergency room due to significant redness and swelling o f both feet. There is black discoloration of the feet of his left foot and this has been going on fo r about 2 months and is getting worse. The patient decided to present to the emergency room due to w orsening of symptoms. Past Medical History: History of coronary artery disease, congestive heart failure, and he has histo ry of hypertension, diabetes, dyslipidemia. Medications: Refer to reconciliation sheet for detailed list. Allergies: REVIEWED. Family History: No premature coronary artery disease or cancer. Social History: He is a smoker. Does not drink or use any drugs. Review of Systems: All systems reviewed. They were negative except for what is mentioned in HPI. Physical Examination: Vital Signs: Reviewed. Head and Neck: Pupils are reactive to light. No JVD. No cervical lymphadenopathy. Neck is supple. Thyroid is not enlarged. Lungs: Rhonchi bilaterally. No accessory muscle use or muscle retraction. Heart: Irregular with no extra sounds. Abdomen: Soft, nontender. Bowel sounds positive. No organomegaly. Bowel sounds 2+. Extremities: They are warm all the way to the toes. Red, both feet and pulses are intact. Skin: Multiple chronic venous stasis ulceration of both legs and has black discoloration of toes of both feet with gangrene. Neurologic: Alert, awake. No acute focal Deficits appreciated. Lymph Nodes: No cervical or axillary lymphadenopathy. Investigations: Hemoglobin 12.4, blood count was 11.1, and creatinine is 1.1. NT proBNP is 9345. T roponin is negative and venous Doppler of lower extremities, no DVT and the arterial Doppler of lower extremities showed there was atherosclerosis bilaterally, but there was no significant flow abnormal ities detected. No stenosis or occlusion is seen. Assessment And Recommendations: Gangrene in left foot with significant cellulitis, borderline blood pressure, and sepsis. As per the vascular Doppler, there is no acute occlusion and in fact, I believ e, this is a chronic bone infection osteomyelitis, due to microvascular disease in the presence of di abetes and neuropathy and poor skin care. Agree with wide-spectrum antibiotics and agree with surgic al intervention with amputation. However, this patient's cardiac status is not well compensated. He is hypotensive and I recommend transfer to a Tertiary center for cardiac anesthesia to be available for the amputation and further care of his acute infectious process, but from my standpoint, I do not feel that a peripheral angiogram will add anything at this point, and more than likely, this is a ch ronic problem that has been worsening over the past 2 months and the only solution would be with anti biotics and amputation. Thank you very much for the courtesy of this consult. /LORETTA Voice ID: [id number] Report ID: [id number]
[2021-07-04] MEDS: Meropenem 1,000 MG in NA CHLORIDE 0.9% 100 ML IV SCH ×3 (00:31→16:45)
[2021-07-04] MEDS: FUROSEMIDE 40 MG/4 ML VIAL IV SCH ×4 (01:05→19:59)
[2021-07-04] MEDS: ALBUTEROL 2.5 MG/3 ML NEB SOL NEB PRN ×4 (01:15→20:05)
[2021-07-04] MEDS: VANCOMYCIN 1.75 GM in NA CHLORIDE 0.9% 500 ML IVPB SCH (05:00)
[2021-07-04 05:04] LABS: Absolute Lymphocytes (CBC) 0.8 K/uL (0.7-4.9); Lymphocytes % 8.5 % (15.3-44.8); MPV 9.3 fL (7.6-11.3); RBC Red Blood Cell Count 3.66 M/uL (4.33-5.43)
[2021-07-04 05:19] LABS: Albumin 2.3 g/dL (3.4-5.0); Bilirubin Total 1.3 mg/dL (0.2-1.0); Magnesium 1.8 mg/dL (1.8-2.4); Potassium 3.8 mmol/L (3.5-5.1); Protein, Total 6.4 g/dL (6.4-8.2)
[2021-07-04] MEDS ORDERED: ALBUTEROL INHALER 60 PUFF/8 GM IH PRN (06:12)
[2021-07-04] MEDS ORDERED: ALPRAZOLAM 0.5 MG TABLET PO PRN (06:12)
--- NOTE | 2021-07-04 06:12 | P.PN ---
Date of Service: 07/04/21 Subjective: feels better today awake/alert, breathing more comfortably was urinating frequently yesterday with lasix, cassidy placed off pressors since yesterday morning ROS: 10 point ROS as noted above, otherwise negative Physical exam GEN: Alert, oriented, NAD HEENT: Normal conjunctiva, sclera anicteric CV: irregularly irregular rhythm, trace-1+ b/l lower extremity edema Pulm: faint crackles bilaterally, nonlabored respirations ABD: Soft, nontender, nondistended Integumentary: RLE: erythema foot to above ankle with posterior lower extremity with large superficial abrasion, LLE: gangrenous toes, erythema of foot Neuro: Normal speech, normal affect Problem List Hypotension / shock seconday to sepsis vs cardiogenic diabetic foot ulcer, with gangrene of 2nd,3rd digits emphysematous osteomyelitis acute on chronic systolic CHF, EF <20%, AICD/PM in place Atrial fibrillation, chronic CAD COPD, chronic pulmonary hypertension DM2, insulin dependent covid kavon h/o ALL started on phenylephrine on admission, titrated off 07/03 AM measure BP on left arm only - R arm is inaccurate shock likely multifactorial, Cardiogenic and possibly sepsis, difficult to rule out given R leg erythema/cellulitis and L toes continue vanc / meropenem for cellulitis / diabetic toe infection; cover pseudomonas - pt reported in hot tube ~1 week prior to admissoin CT 07/04: emphysematous osteomyelitis cardiology consulted for PAD and CHF Dr. Lieberman consulted for wounds / gangrenous toes, patient will need amputation higher mortality with emphysematous osteomyelitis, patient is high risk for anesthesia given his significant past medical history, low EF. Cardiology recommends patient be transferred to tertiary care center given these risks. would need cardiac anesthesia / specialists for this patient's procedure and potential complications CT dissection: Atherosclerosis noted, no significant lesions PT consulted nephrology consulted, started patient on high dose lasix, spironolactone for diuresis. MAPs improving, UOP improved patient overloaded, acute CHF Code: DNR Dispo: Transfer initiated tertiary [facility]
[2021-07-04] MEDS: INSULIN -REGULAR HUMAN 50 UNIT/0.5 ML ML SQ SCH ×4 (07:30→20:52)
[2021-07-04] MEDS ORDERED: FUROSEMIDE IV SCH (09:00)
[2021-07-04] MEDS: BUDESONIDE FORMOTEROL IH SCH ×2 (09:00→20:51)
[2021-07-04] MEDS ORDERED: NA CHLORIDE 0.9% IV SCH (09:00)
[2021-07-04] MEDS: PANTOPRAZOLE 40 MG INJ IVP SCH (09:47)
[2021-07-04] MEDS: MEDIHONEY 44 ML TOPICAL TUBE TOP SCH (09:48)
[2021-07-04] MEDS: SPIRONOLACTONE 100 MG TAB PO SCH ×2 (09:48→20:33)
[2021-07-04] MEDS: ENOXAPARIN 40 MG/0.4 ML SQ SCH (09:48)
[2021-07-04] MEDS: AMIODARONE HCL 200 MG TAB PO SCH ×2 (09:48→20:35)
[2021-07-04] MEDS: JUVEN PACKET PO SCH ×2 (09:49→20:34)
--- NOTE | 2021-07-04 09:56 | P.PN ---
Subjective Date of Service: 07/04/21 Chief Complaint: PAD, Hypotension, CHF Subjective: No new changes Physical Examination - Vital Signs Temperature: 97 F Blood Pressure: 99/76 Pulse: 90 Respirations: 20 Pulse Ox (%): 96 - Physical Exam General: Acute distress HEENT: Atraumatic, Normocephalic Neck: Supple Respiratory: Other (symmetric chest expansion) Cardiovascular: No rubs, No murmurs Gastrointestinal: Soft and benign, No guarding Musculoskeletal: Swelling Integumentary: No warmth Neurological: Normal speech, Normal tone Urinary: Other (no bladder distention) External genitalia: Deferred Rectal: Deferred Assessment And Plan - Plan # Acute on chronic CHF Hx of ALL in remission, CAD s/p CABG s/p PCI, chronic systolic HF LVEF <20% on 03/17/2021 s/p pacemaker/defibrillator, severe pulmo Htn, afib not on AC BP low Start inotrope if MAP < 65 Cont lasix to 160 mg IV q6h Cont ashlee 100 mg po bid Strict low Na diet < 2g/d # Acute on chronic respi failure Hx of severe pulmo Htn, COPD on home O2, chronic active cig smoker, hx of long covid syndrome, history of PE 2/2 COVID, traction bronchiectasis and pulmonary fibrosis ABG showed hypoxia Respi mngt per other services # Metabolic alkalosis [place] po fluid intake # Wound on L toes Hx of PVD Per other services # DM2 Mngt per primary team
--- NOTE | 2021-07-04 10:10 | RAD REPORT ---
EXAM DESCRIPTION: CT - Foot Left Wo Con - 07/04/2021 9:52 am CLINICAL HISTORY: Foot pain and swelling COMPARISON: None TECHNIQUE: Computed coronal tomography left foot obtained with axial and sagittal reconstruction All CT scans are performed using dose optimization technique as appropriate and may include automated exposure control or mA/KV adjustment according to patient size. FINDINGS: Air is present within second middle and distal phalanx compatible with infection. Air is p resent within the adjacent soft tissue. Cortical destruction involves the distal aspect of the second proximal phalanx Ulceration involves the dorsal soft tissue slurred distal phalanx Cortical irregularity with periosteal deposition involves the mid and distal aspect of the first prox imal phalanx suspicious for osteomyelitis Diffuse edema within the subcutaneous tissues IMPRESSION: Emphysematous osteomyelitis second middle and distal phalanx Osteomyelitis second proximal phalanx Osteomyelitis first proximal phalanx
--- NOTE | 2021-07-04 10:22 | RAD REPORT ---
EXAM DESCRIPTION: CT - Angio Aorta For Dissection - 07/04/2021 9:52 am CLINICAL HISTORY: . Chest and abd pain COMPARISON: May 2021 TECHNIQUE: Computed tomography angiography of the chest, abdomen pelvis were obtained. 100 cc Isovue 370 was administered intravenously. Coronal and sagittal reconstruction were performed. MIP 3D reconstruction was performed All CT scans are performed using dose optimization technique as appropriate and may include automated exposure control or mA/KV adjustment according to patient size. FINDINGS: An aortic dissection is not seen. An aortic aneurysm is not displayed. Moderate thrombus within the distal abdominal aorta. Mild plaque within iliac, common and proximal superficial femoral arteries. The celiac, SMA and SAPNA are patent . Moderate bilateral pleural effusions with basilar atelectasis. A pericardial effusion is not seen. A pleural effusion is not noted. Mild cirrhosis. Spleen, pancreas,adrenals and kidneys demonstrate no significant abnormality. There no evidence diverticulitis. Alexandre catheter within the bladder. Diffuse edema within the subcutaneous tissues. Moderate to large amount of ascites Normal appendix IMPRESSION: Negative for an aortic dissection. Moderate thrombus within the distal abdominal aorta. Good flow within the iliac, common femoral and p roximal superficial femoral arteries bilaterally
--- NOTE | 2021-07-04 11:07 | PN ---
Date of Progress Note: 07/04/2021 Subjective: The patient is awake, alert. No complaint. Vitals are stable. He is off vasopressors. He is afebrile. Laboratory data reviewed. His white count is normal. Chemistry reviewed, essenti ally unchanged and CT of the abdomen and pelvis reviewed with Dr. Ribera. The patient has emphysem atous osteomyelitis of second, middle and distal phalanx; osteomyelitis of the first and second proxi mal phalanx. The patient also has aortoiliac and femoral disease. He has chronic changes, but nothi ng acute that requires surgical intervention. The findings are as follows; negative for aortic disse ction. Moderate thrombus within the distal abdominal aorta. Good flow within the iliac, common femo ral and proximal superficial femoral arteries bilaterally. Assessment: Severe peripheral vascular disease with osteomyelitis and gangrene and cellulitis and th e patient with significant cardiac disease. Recommendations: Discussed the case with Dr. Sepulveda. The patient will be transferred to [facility] for cardiac anesthesia and the patient will need an amputation of these toes. The patient can [facility] care following his surgery. /MODL Voice ID: [id number] Report ID: [id number]
[2021-07-04 11:46] LABS: Arterial Blood Carboxyhemoglob 1.7 % (0-1.5); Blood Gas Oxyhemoglobin 92.3 % (94-97); Blood O2 Saturation 95.1 % (92-98.5)
[2021-07-04] MEDS: DOBUTAMINE 250 MG/250 ML BAG IV SCH (17:23)
[2021-07-05] MEDS: Meropenem 1,000 MG in NA CHLORIDE 0.9% 100 ML IV SCH ×3 (00:13→17:08)
[2021-07-05] MEDS: ALBUTEROL 2.5 MG/3 ML NEB SOL NEB PRN ×4 (01:20→19:30)
[2021-07-05] MEDS: FUROSEMIDE 40 MG/4 ML VIAL IV SCH ×3 (02:02→17:08)
[2021-07-05 04:54] LABS: Absolute Lymphocytes (CBC) 0.8 K/uL (0.7-4.9); Hematocrit 34.7 % (39.6-49.0); Lymphocytes % 8.2 % (15.3-44.8); MPV 9.4 fL (7.6-11.3); RBC Red Blood Cell Count 3.65 M/uL (4.33-5.43)
[2021-07-05 05:15] LABS: AST/SGOT 13 U/L (15-37); Albumin 2.2 g/dL (3.4-5.0); Alkaline Phosphatase 133 U/L (45-117); BUN Blood Urea Nitrogen 41 mg/dL (7-18); Bicarbonate 35 mmol/L (21-32); Glomerular Filtration Rate 65 ml/min (=/>90); Glucose Level 141 mg/dL (74-106); Magnesium 1.7 mg/dL (1.8-2.4); Potassium 3.6 mmol/L (3.5-5.1); Protein, Total 6.3 g/dL (6.4-8.2); Sodium Level 139 mmol/L (136-145)
[2021-07-05 05:19] LABS: ALT/SGPT < 10 U/L (12-78)
[2021-07-05] MEDS: VANCOMYCIN 1.75 GM in NA CHLORIDE 0.9% 500 ML IVPB SCH (05:34)
--- NOTE | 2021-07-05 06:16 | P.PN ---
Date of Service: 07/05/21 Subjective: more short of breath this morning last night placed on HFNC diuresed ~4L yesterday UOP improved after initiation of dobutamine swelling improved in lower extremities ROS: 10 point ROS as noted above, otherwise negative Physical exam GEN: Alert, oriented HEENT: Normal conjunctiva, sclera anicteric CV: irregularly irregular rhythm; HR:80s , trace-1+ b/l lower extremity edema Pulm: crackles bilaterally, mildly labored respirations on 15L HFNC, rests after ~5words to take breath ABD: Soft, nontender, +ascites Integumentary: RLE: large superficial abrasion in posterior lower leg, no purulent drainage, +surrounding erythema, LLE: gangrenous 2nd-3rd toes with ulceration between 1-3, erythema of foot Neuro: Normal speech, anxious, depressed Problem List Hypotension / shock seconday to sepsis vs cardiogenic diabetic foot ulcer, with gangrene of 2nd,3rd digits emphysematous osteomyelitis acute on chronic systolic CHF, EF <20%, AICD/PM in place Atrial fibrillation, chronic; rate controlled CAD COPD, chronic pulmonary hypertension DM2, insulin dependent lupis jacobson h/o ALL started on phenylephrine on admission, titrated off 07/03 AM MAPS in 60s-low 70s Started dobutamine 07/04 for inotropic effects; assist with diuresis patient diuresing well, >4L yesterday; increased UOP after dobutamine started 07/04 afternoon decrease lasix dose nephrology assisting, continue spironolactone shock likely multifactorial - cardiogenic and possible sepsis, difficult to rule out given R leg erythema/cellulitis and L toes continue vanc/merrem for osteomyelitis/sepsis; blood culture: 02/10 +gram positive cocci in clusters pt in hot tub ~1 week prior to admission CT 07/04: emphysematous osteomyelitis Cardiology consulted for PAD and CHF Dr. Lieberman consulted for wounds / gangrenous toes, patient will need amputation higher mortality with emphysematous osteomyelitis, patient is high risk for anesthesia given his significant cardiac medical history, low EF. Cardiology recommends patient be transferred to tertiary care center given these risks. would need cardiac anesthesia / specialists for this patient's procedure and potential complications CT dissection: Atherosclerosis noted, no significant lesions CXR this morning acute worsening b/l opacities, with hypoxia; unclear etiology, pt diuresing well, on dobutamine +diuretics check sputum culture trial on bipap Code: DNR Dispo: Transfer initiated [facility], pending bed
[2021-07-05 06:53] VITALS: BMI 28.2
[2021-07-05] MEDS: INSULIN -REGULAR HUMAN 50 UNIT/0.5 ML ML SQ SCH ×4 (07:23→20:57)
[2021-07-05] MEDS ORDERED: MAGNESIUM SULFATE 1 gm IVPB 1 GM/100 ML BAG IV ONE (08:00)
[2021-07-05] MEDS ORDERED: POTASSIUM CL SA 10 MEQ TAB PO ONE (08:00)
--- NOTE | 2021-07-05 08:18 | RAD REPORT ---
EXAM DESCRIPTION: RAD - Chest Single View - 07/05/2021 7:06 am CLINICAL HISTORY: hypoxia, chf Chest pain. COMPARISON: Chest Single View dated 07/02/2021; Chest Single View dated 05/10/2021; Chest Pa And Lat (2 Views) dated 04/17/2021; Chest Single View dated 03/17/2021 FINDINGS: Portable technique limits examination quality. Extensive bilateral pulmonary opacities are noted, moderately to significantly worsened since the com parative study. The heart is enlarged in size. Multilead pacer/defibrillator device. Sternotomy wires . IMPRESSION: Significant worsening in lung aeration since comparative study.
[2021-07-05] MEDS: SPIRONOLACTONE 100 MG TAB PO SCH ×2 (08:43→20:53)
[2021-07-05] MEDS: PANTOPRAZOLE 40 MG INJ IVP SCH (08:44)
[2021-07-05] MEDS: AMIODARONE HCL 200 MG TAB PO SCH ×2 (08:44→20:53)
[2021-07-05] MEDS: ENOXAPARIN 40 MG/0.4 ML SQ SCH (08:44)
[2021-07-05] MEDS: MEDIHONEY 44 ML TOPICAL TUBE TOP SCH (08:44)
[2021-07-05] MEDS: JUVEN PACKET PO SCH ×2 (08:46→20:54)
[2021-07-05] MEDS: BUDESONIDE FORMOTEROL IH SCH (09:00)
[2021-07-05] MEDS: DOBUTAMINE 250 MG/250 ML BAG IV SCH (11:09)
[2021-07-05] MEDS ORDERED: ALBUTEROL INHALER 60 PUFF/8 GM IH PRN (11:51)
--- NOTE | 2021-07-05 12:14 | PN ---
Date of Progress Note: 07/05/2021 Subjective: The patient is awake alert. No new complaints. Objective: Vital Signs: Show his respiratory rate to be slightly increased between 23 and 25, blood pressure is stable 93/63, the patient is afebrile. Extremities: On physical exam, there is no significant change. The patient still has erythema and e kristine in the lower extremity. Slightly improved. There is dry gangrene present in the left foot. Laboratory Data: Reviewed. White count is 9.9. Slight left shift. Chemistry reviewed. Chest x-ra y was done which shows worsening of the aeration since comparison study with bilateral pulmonary opac ities moderately significantly worsened. Assessment: A 66-year-old gentleman with multiple medical problems with osteomyelitis in the setting of severe peripheral vascular disease as well as cardiac and respiratory issues. Recommendations: The patient is awaiting a bed in [facility]. If he can be weaned down on his oxyge n, he may be transferred to a telemetry bed. The patient is being diuresed currently. The patient d esirous to go home and then come back and I told him this would not be medically advisable. However, ultimately the decision will be his. I will discuss that with Dr. Sepulveda to encourage the patient no t to do that. In the meantime, we will continue with supportive care with antibiotics and medical ma nagement of his CHF and pulmonary issues as well. We will continue to try to transfer this patient a s soon as possible. /MODL Voice ID: [id number] Report ID: [id number]
[2021-07-05] MEDS: METHYLPREDNISOLONE 40 MG INJ IV SCH ×2 (15:16→17:00)
[2021-07-05] MEDS: DULERA 200/5 (MOMETASONE/FORMOTEROL) INHALER IH SCH (20:54)
--- NOTE | 2021-07-05 22:42 | P.PN ---
Subjective Date of Service: 07/05/21 Chief Complaint: PAD, Hypotension, CHF Subjective: No new changes Physical Examination - Vital Signs Temperature: 97 F Blood Pressure: 85/61 Pulse: 94 Respirations: 22 Pulse Ox (%): 92 - Physical Exam General: Mild distress HEENT: Atraumatic, Normocephalic Neck: Supple Respiratory: Other (symmetric chest expansion) Cardiovascular: No rubs, No murmurs Gastrointestinal: Soft and benign, No guarding Musculoskeletal: Swelling Integumentary: Other (+wound on L toes) Neurological: Normal speech, Normal tone Urinary: Other (no bladder distention) External genitalia: Deferred Rectal: Deferred - Studies Microbiology Data (last 24 hrs): 07/02/21 02:45 Clean Catch Urine [place] Count - Final No growth. 07/02/21 02:45 Clean Catch Urine - Final No growth. Assessment And Plan - Plan # Acute on chronic CHF Hx of ALL in remission, CAD s/p CABG s/p PCI, chronic systolic HF LVEF <20% on 03/17/2021 s/p pacemaker/defibrillator, severe pulmo Htn, afib not on AC BP low Started on dobu gtt. Keep MAP > 65 Decrease lasix to 80 mg IV bid Cont ashlee 100 mg po bid Strict low Na diet < 2g/d # Acute on chronic respi failure Hx of severe pulmo Htn, COPD on home O2, chronic active cig smoker, hx of long covid syndrome, history of PE 2/2 COVID, traction bronchiectasis and pulmonary fibrosis Repeat CXR w/ increased bilateral opacities Abx per primary team F/u BCx, sputum cx # Metabolic alkalosis [place] po fluid intake # Osteomyelitis on L toes Hx of PVD Pending transfer to [facility] for surgical intevention # DM2 Mngt per primary team
[2021-07-06] MEDS: METHYLPREDNISOLONE 40 MG INJ IV SCH ×2 (00:11→08:04)
[2021-07-06] MEDS: Meropenem 1,000 MG in NA CHLORIDE 0.9% 100 ML IV SCH ×3 (00:11→16:51)
[2021-07-06 05:16] LABS: Absolute Lymphocytes (CBC) 0.4 K/uL (0.7-4.9); Hematocrit 33.5 % (39.6-49.0); MPV 9.7 fL (7.6-11.3); RBC Red Blood Cell Count 3.57 M/uL (4.33-5.43)
[2021-07-06 05:37] LABS: AST/SGOT 11 U/L (15-37); Albumin 2.3 g/dL (3.4-5.0); Alkaline Phosphatase 129 U/L (45-117); BUN Blood Urea Nitrogen 44 mg/dL (7-18); Bicarbonate 37 mmol/L (21-32); Bilirubin Total 0.9 mg/dL (0.2-1.0); Glomerular Filtration Rate 62 ml/min (=/>90); Glucose Level 206 mg/dL (74-106); Magnesium 1.8 mg/dL (1.8-2.4); Potassium 3.7 mmol/L (3.5-5.1); Protein, Total 6.6 g/dL (6.4-8.2); Sodium Level 136 mmol/L (136-145)
[2021-07-06 05:45] LABS: ALT/SGPT < 10 U/L (12-78)
--- NOTE | 2021-07-06 06:13 | P.PN ---
Date of Service: 07/06/21 Subjective: no significant change feels about the same anxious with staying in hospital still on HFNC ROS: 10 point ROS as noted above, otherwise negative Physical exam GEN: Alert, oriented HEENT: Normal conjunctiva, sclera anicteric CV: irregularly irregular rhythm; HR:80s , trace-1+ b/l lower extremity edema Pulm: crackles bilaterally, mildly labored respirations on 15L HFNC ABD: Soft, nontender, +ascites Integumentary: RLE: large superficial abrasion in posterior lower leg, no purulent drainage LLE: gangrenous 2nd-3rd toes with ulceration between 1-3, erythema of foot Neuro: Normal speech, anxious, depressed Problem List Hypotension / shock seconday to sepsis vs cardiogenic diabetic foot ulcer, with gangrene of 2nd,3rd digits emphysematous osteomyelitis acute on chronic systolic CHF, EF <20%, AICD/PM in place Atrial fibrillation, chronic; rate controlled CAD COPD, chronic pulmonary hypertension DM2, insulin dependent lupis jacobson h/o ALL started on phenylephrine on admission, titrated off 07/03 AM MAPS in 60s-low 70s Started dobutamine 07/04 for inotropic effects; assist with diuresis patient diuresing well, >4L/ day; increased UOP after dobutamine started 07/04 afternoon decreased lasix dose 07/05; UOP overnight and this morning low; will increase lasix nephrology assisting, continue spironolactone shock likely multifactorial - cardiogenic and possible sepsis, difficult to rule out given R leg erythema/cellulitis and L toes continue vanc/merrem for osteomyelitis/sepsis; blood culture: 02/10 +gram positive cocci in clusters pt in hot tub ~1 week prior to admission CT 07/04: emphysematous osteomyelitis Cardiology consulted for PAD and CHF Dr. Lieberman consulted for wounds / gangrenous toes, patient will need amputation higher mortality with emphysematous osteomyelitis, patient is high risk for anesthesia given his significant cardiac medical history, low EF. Cardiology recommends patient be transferred to tertiary care center given these risks. would need cardiac anesthesia / specialists for this patient's procedure and potential complications CT dissection: Atherosclerosis noted, no significant lesions CXR 07/05 AM: acute worsening b/l opacities, with hypoxia; unclear etiology, pt diuresing well, on dobutamine +diuretics check sputum culture; trial of bipap; pt tolerated Code: DNR Dispo: Transfer initiated tertiary care center [facility] accepted 07/04, pending ICU bed can take dobutamine to telemetry bed, but not BIPAP/HFNC, wean O2, possibly downgrade once on regular nasal cannula
[2021-07-06] MEDS: VANCOMYCIN 1.75 GM in NA CHLORIDE 0.9% 500 ML IVPB SCH (06:27)
[2021-07-06] MEDS: ALBUTEROL 2.5 MG/3 ML NEB SOL NEB PRN ×2 (07:37→14:43)
--- NOTE | 2021-07-06 07:58 | RAD REPORT ---
EXAM DESCRIPTION: RAD - Chest Single View - 07/06/2021 6:43 am CLINICAL HISTORY: eval volume status COMPARISON: Chest Single View dated 07/05/2021; Chest Single View dated 07/02/2021; Chest Single View dated 05/10/2021; Chest Pa And Lat (2 Views) dated 04/17/2021 FINDINGS: Lines: Pacemaker/ICD. Sternotomy. Lungs: Severe bilateral airspace disease that is similar to 07/05/2021. Pleural: Layering pleural effusions. Cardiac: Cardiomegaly. Bones: No acute fractures. Other: IMPRESSION: Widespread pulmonary opacities similar to 07/05/2021 and favored to represent pulmonary edema and effusions.
[2021-07-06] MEDS: INSULIN -REGULAR HUMAN 50 UNIT/0.5 ML ML SQ SCH ×4 (08:02→20:44)
[2021-07-06] MEDS: SPIRONOLACTONE 100 MG TAB PO SCH ×2 (08:02→20:42)
[2021-07-06] MEDS: AMIODARONE HCL 200 MG TAB PO SCH ×2 (08:03→20:42)
[2021-07-06] MEDS: MEDIHONEY 44 ML TOPICAL TUBE TOP SCH (08:03)
[2021-07-06] MEDS: ENOXAPARIN 40 MG/0.4 ML SQ SCH (08:04)
[2021-07-06] MEDS: JUVEN PACKET PO SCH ×2 (08:05→20:43)
[2021-07-06] MEDS: PANTOPRAZOLE 40 MG INJ IVP SCH (08:05)
[2021-07-06] MEDS: DULERA 200/5 (MOMETASONE/FORMOTEROL) INHALER IH SCH ×2 (08:06→20:43)
[2021-07-06] MEDS: FUROSEMIDE 40 MG/4 ML VIAL IV SCH ×3 (09:10→20:43)
--- NOTE | 2021-07-06 09:35 | P.CNS ---
Date of Consult: 07/06/21 Chief Complaint: PAD, Hypotension, CHF History of Present Illness: Patient is 66 years of age multiple medical problems severe CHF also has gangrenous toes history of COVID active smoker patient admitted with hypotension presumed cardiac currently on a dobutamine drip awaiting transfer to tertiary care feels weak Labs reviewed Allergies paroxetine HCl [From Paxil] Allergy (Intermediate, Verified 01/15/21 09:44) AMS morphine Adverse Reaction (Mild, Verified 01/15/21 09:44) Shortness of breath Home Medications: Promethazine HCl 25 mg PO TID PRN 08/16/17 ALPRAZolam [Alprazolam] 1 tab PO TID 01/15/21 Albuterol Sulfate [Albuterol Sulfate Hfa] 2 puff IN TID PRN 01/15/21 Budesonide/Formoterol Fumarate [Budesonide-Formoterol 160-4.5] 1 dose IN BID 01/15/21 Insulin Glargine,Hum.rec.anlog [Tolaly Mullerostar] 20 unit SQ DAILY 03/17/21 Insulin Lispro [Humalog] See Protocol SQ AC 03/17/21 Amiodarone HCl [Cordarone Tab] 200 mg PO BID 07/02/21 Furosemide 80 mg PO DAILY 07/02/21 Potassium Chloride 20 meq PO DAILY 07/02/21 Sacubitril/Valsartan [Entresto 49 mg-51 mg Tablet] 1 tab PO BID 07/02/21 - Past Medical/Surgical History Diabetic: Yes -: ALL -: atrial fibrillation -: CAD -: HLD -: COPD on Home O2, pulmonary hypertension -: DM- insulin dependent -: CHF -: history of PE -: COVID 19 longhauler -: heart stents -: wrist surgery -: finger surgery -: CABG -: pacemaker, defibrillator -: endarterectomy Psychosocial/ Personal History: Patient lives at home with his . - Family History Father Medical History: Lung disease Brother Medical History: Liver disease - Social History Smoking Status: Current every day smoker Alcohol use: No CD- Drugs: No Caffeine use: Yes Place of Residence: Home Review of Systems General: Weakness Respiratory: Shortness of Breath Physical Examination Temp Pulse Resp BP Pulse Ox 97.9 F 90 22 H 92/70 93 07/06/21 04:00 07/06/21 06:30 07/05/21 22:47 07/06/21 06:30 07/06/21 06:30 General: Alert, In no apparent distress, Oriented x3, Mild distress Respiratory: Clear to auscultation bilaterally, Diminished Cardiovascular: No edema, Other Gastrointestinal: Normal bowel sounds, Soft and benign Musculoskeletal: Other (Necrotic toes on the left foot) - Problems (1) CHF (congestive heart failure) Current Visit: Yes Status: Acute Plan: Patient is a 66 years of age admitted with hypotension and necrotic toes quiring amputation awaiting transfer to a tertiary care center severe congestive heart failure on low-dose dobutamine drip labs reviewed mild renal failure patient is on dobutamine drip patient is on Lasix spironolactone DC steroids patient is also on vancomycin and meropenem osteomyelitis chest x-ray shows a bilateral pleural effusion currently on high flow oxygen patient is also on amiodarone repeat cultures are pending no evidence of active sepsis Qualifiers: Heart failure type: systolic Heart failure chronicity: acute on chronic Qualified Code(s): I50.23 - Acute on chronic systolic (congestive) heart failure
[2021-07-06 09:48] LABS: Platelet Estimate ADEQ; Toxic Granulation PRESENT
[2021-07-06 10:19] LABS: Anisocytosis SLIGHT; Blood Morphology Comment NOTED (NOT SEEN)
[2021-07-06] MEDS ORDERED: MAGNESIUM SULFATE 1 gm IVPB 1 GM/100 ML BAG IV ONE (11:00)
[2021-07-06] MEDS ORDERED: POTASSIUM CL SA 10 MEQ TAB PO ONE (11:00)
[2021-07-06] MEDS: DOBUTAMINE 250 MG/250 ML BAG IV SCH (11:34)
--- NOTE | 2021-07-06 17:26 | PN ---
Date of Progress Note: 07/06/2021 Subjective: Seen by bedside. Clinically improving. However, continues to require dopamine. Review of Systems: No chest pain, shortness of breath, orthopnea, cough. No nausea, vomiting, diarrhea. No other compl aints. Physical Examination: Vital Signs: Reviewed. Head and Neck: Pupils are equal, reactive to light. Intact eye movements. No JVD. No cervical lym phadenopathy. Neck is supple. Lungs: Clear to auscultation bilaterally. No rhonchi, rales, or crackles. No accessory muscle use. Heart: Irregular. No extra sounds. Abdomen: Soft, nontender. Bowel sounds positive. No organomegaly. No masses or rebound. Extremities: No clubbing, cyanosis. Intact pulses. Gangrene involving his left foot. Skin: No rashes. Neurologic: Alert, awake. No acute focal deficits appreciated. Investigations: Labs reviewed. Assessment And Recommendation: 1.Severe systolic heart failure, ejection fraction in the 20% range. The patient has an ICD and biv entricular pacemaker. Appears to be euvolemic at this point. Continue current plan of management. 2.Peripheral vascular disease, mild by Doppler. 3.Gangrene of his left foot. Continue current antibiotics and the patient will require an amputatio n. The plan is transferring the patient to a tertiary care center for operation with the presence of cardiac anesthesiologist. /VIRIL Voice ID: [id number] Report ID: [id number]
[2021-07-06] MEDS ORDERED: FUROSEMIDE 40 MG/4 ML VIAL IV SCH (21:00)
--- NOTE | 2021-07-06 22:53 | PN ---
Date of Progress Note: 07/06/2021 Chief Complaint: Hypotension, congestive heart failure, severe cardiorenal syndrome, fluid overload. The patient has severe peripheral vascular disease. He is on pressor for blood pressure. Blood cultures and urine cultures were obtained. Urine culture showed no growth on final report. Review of Systems: The patient denies fever or chills. Physical Examination: LUNGS: Clear to auscultation bilaterally. HEART: S1 and S2. ABDOMEN: Soft. EXTREMITIES: Edema present bilaterally. Wound on the leg covered with dressing. Impression And Plan: Acute on chronic congestive heart failure. The patient has coronary artery disease, status post coronary artery bypass graft and status post percutaneous coronary intervention with chronic systolic congestive heart failure, ejection fraction 20%, exacerbated by fluid overload and complicated wound infection in the lower extremity. The patient will continue Lasix for volume control. Dose will be adjusted today to enhance diurese. The patient has history of pacemaker defibrillator, severe pulmonary hypertension, history of atrial fibrillation. The patient will continue spironolactone. Plan is to monitor electrolytes. Lasix was increased to control volemia. Provide treatment for congestive heart failure and cardiorenal syndrome. The patient has underlying diabetic kidney disease. Continue insulin, the patient is not a candidate for metformin. Osteomyelitis of the left toe, history of peripheral vascular disease. The patient is awaiting higher level of care for surgical intervention. The patient will need lower extremity bypass or revascularization process. History of pulmonary hypertension, chronic obstructive pulmonary disease, on home oxygen. Continue oxygen therapy. The patient has history of pulmonary embolism secondary Further recommendation from Pulmonary service. AMY/LORETTA Voice ID: [id number] Report ID: [id number] [facility]ENTERMason
[2021-07-07] MEDS: Meropenem 1,000 MG in NA CHLORIDE 0.9% 100 ML IV SCH ×2 (00:39→08:33)
[2021-07-07] MEDS: FUROSEMIDE 40 MG/4 ML VIAL IV SCH ×2 (03:13→08:34)
--- NOTE | 2021-07-07 04:48 | P.PN ---
Subjective Date of Service: 07/07/21 Chief Complaint: PAD, Hypotension, CHF Physical Examination - Vital Signs Temperature: 98 F Blood Pressure: 98/69 Pulse: 9 Respirations: 20 Pulse Ox (%): 93 Assessment And Plan - Plan # Acute on chronic CHF Hx of ALL in remission, CAD s/p CABG s/p PCI, chronic systolic HF LVEF <20% on 03/17/2021 s/p pacemaker/defibrillator, severe pulmo Htn, afib not on AC BP low Started on dobu gtt. Keep MAP > 65 Decrease lasix to 80 mg IV bid Cont ashlee 100 mg po bid Strict low Na diet < 2g/d # Acute on chronic respi failure Hx of severe pulmo Htn, COPD on home O2, chronic active cig smoker, hx of long covid syndrome, history of PE 2/2 COVID, traction bronchiectasis and pulmonary fibrosis Repeat CXR w/ increased bilateral opacities Abx per primary team F/u BCx, sputum cx # Metabolic alkalosis [place] po fluid intake # Osteomyelitis on L toes Hx of PVD Pending transfer to [facility] for surgical intevention # DM2 Mngt per primary team
[2021-07-07 05:29] LABS: Absolute Lymphocytes (CBC) 0.7 K/uL (0.7-4.9); Lymphocytes % 6.7 % (15.3-44.8); MPV 9.7 fL (7.6-11.3); RBC Red Blood Cell Count 3.68 M/uL (4.33-5.43)
[2021-07-07 05:50] LABS: Albumin 2.5 g/dL (3.4-5.0); Bilirubin Total 0.8 mg/dL (0.2-1.0); Magnesium 2.1 mg/dL (1.8-2.4); Potassium 3.8 mmol/L (3.5-5.1); Protein, Total 6.6 g/dL (6.4-8.2)
[2021-07-07] MEDS: VANCOMYCIN 1.75 GM in NA CHLORIDE 0.9% 500 ML IVPB SCH (06:00)
--- NOTE | 2021-07-07 07:19 | ECHO ---
HEIGHT: 6 ft 1 in WEIGHT: 214 lb 0 oz DATE OF STUDY: 07/03/[address]: Addison Sepulveda MD 2-DIMENSIONAL: YES M.MODE: YES DOPPLER: YES COLOR FLOW: YES TDS: PORTABLE: DEFINITY: BUBBLE STUDY: DIAGNOSIS: RULE OUT CLOT CARDIAC HISTORY: CATHERIZATION: YES SURGERY: YES PROSTHETIC VALVE: NO PACEMAKER: YES MEASUREMENTS (cm) DIASTOLIC (NORMALS) SYSTOLIC (NORMALS) IVSd 1.1 (0.6-1.2) LA Diam (1.9-4.0) LVEF 24% LVIDd 5.1 (3.5-5.7) LVIDs 4.5 (2.0-3.5) %FS 11% LVPWd 1.2 (0.6-1.2) Ao Diam (2.0-3.7) 2 DIMENSIONAL ASSESSMENT: RIGHT ATRIUM: ENLARGED LEFT ATRIUM: ENLARGED RIGHT VENTRICLE: PACEMAKER IS NOTED LEFT VENTRICLE: SEVERELY DEPRESSED TRICUSPID VALVE: MODERATE TRICUSPID REGURGITATION MITRAL VALVE: MODERATE TO SEVERE MITRAL REGURGITATION PULMONIC VALVE: NORMAL AORTIC VALVE: NORMAL PERICARDIAL EFFUSION: NONE AORTIC ROOT: NORMAL LEFT VENTRICULAR WALL MOTION: ANTERIOR/ LEONORA-SEPTAL AKINESIS DOPPLER/COLOR FLOW: SEE BELOW COMMENTS: SEVERELYDEPRESSED LEFT VENTRICULAR EJECTION FRACTION 25-30%. ANTERIOR / LEONORA-SEPTAL AKINESIS. MODERATE TRICUSPID REGURGITATION. MODERATE TO SEVERE MITRAL REGURGITATION. BI-ATRIAL ENLARGEMENT. MODERATE TO SEVERE PULMONARY HYPERTENSION. TECHNOLOGIST: MODESTO ELI
[2021-07-07] MEDS: INSULIN -REGULAR HUMAN 50 UNIT/0.5 ML ML SQ SCH ×2 (07:30→11:30)
[2021-07-07] MEDS: AMIODARONE HCL 200 MG TAB PO SCH (08:33)
[2021-07-07] MEDS: ENOXAPARIN 40 MG/0.4 ML SQ SCH (08:33)
[2021-07-07] MEDS: SPIRONOLACTONE 100 MG TAB PO SCH (08:34)
[2021-07-07] MEDS: JUVEN PACKET PO SCH (08:34)
[2021-07-07] MEDS: MEDIHONEY 44 ML TOPICAL TUBE TOP SCH (08:34)
[2021-07-07] MEDS: DULERA 200/5 (MOMETASONE/FORMOTEROL) INHALER IH SCH (08:34)
[2021-07-07] MEDS ORDERED: POTASSIUM CL SA 10 MEQ TAB PO ONE (09:00)
--- NOTE | 2021-07-07 09:14 | P.DS ---
Admission Date: 07/02/21 Discharge Date: 07/07/21 Disposition: TRANSFER TO [facility] Discharge Condition: FAIR Reason for Admission: PAD, Hypotension, CHF Consultations: Cardiology General surgery. 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 Lieberman for a wound check. L 2nd toe and part of L 3rd toe appearing necrotic. Arterial US BLE showed atherosclerosis but no significant blockage. Labs significant for magnesium 1.7, BNP 9000. ABG resulted pCO2 53, pO2 43, HCO3 36. Patient became hypotensive in the ED- so central line was placed and patient was started on phenylephrine. There is concern for cardiogenic shock given rapid drop in blood pressure. Septic shock unlikely as patient is tachypneic but is not febrile or tachycardic. Dr. Lieberman and cardiology notified about patient's condition and agreed to consult. Patient admitted to the ICU for further management. Hospital Course: Diagnosis Hypotension / shock seconday to sepsis vs cardiogenic diabetic foot ulcer, with gangrene of 2nd,3rd digits emphysematous osteomyelitis acute on chronic systolic CHF, EF <20%, AICD/PM in place Atrial fibrillation, chronic; rate controlled CAD COPD, chronic pulmonary hypertension DM2, insulin dependent covid longhauler h/o ALL Hospital course Patient started on phenylephrine on admission, titrated off 07/03 AM MAPS in 60s-low 70s Phenylephrine drip transition to dobutamine 07/04 for inotropic effects and to assist with diuresis. Patient was a started with IV Lasix for diuresis. He diuresing well, >4L/ day. Nephrology consulted to assist With management. Aldactone added. shock likely multifactorial - cardiogenic and possible sepsis, difficult to rule out given R leg erythema/cellulitis and L toes Patient treated with vanc/merrem for osteomyelitis/sepsis; blood culture: 02/10 +gram positive cocci in clusters pt in hot tub ~1 week prior to admission CT 07/04: osteomyelitis Cardiology consulted for PAD and CHF Dr. Lieberman consulted for wounds / gangrenous toes, patient will need amputation higher mortality with emphysematous osteomyelitis, patient is high risk for anesthesia given his significant cardiac medical history, low EF. He may also need angiogram to evaluate for lower extremity PAD prior to amputation. Cardiology recommends patient be transferred to tertiary care center given these risks. He would need cardiac anesthesia / specialists for this patient's procedure and potential complications CT dissection: Atherosclerosis noted, no significant lesions Transfer to [facility]. Patient accepted for transfer. His blood pressure has been stable on the dobutamine drip. Vitals stable for transfer. Vital Signs/Physical Exam: Temp Pulse Resp BP Pulse Ox 98 F 95 H 23 H 106/79 89 L 07/07/21 04:48 07/07/21 06:00 07/07/21 06:00 07/07/21 06:00 07/07/21 06:00 General: Alert, In no apparent distress, Oriented x3 HEENT: Mucous membr. moist/pink Neck: JVD not distended Respiratory: Clear to auscultation bilaterally, Normal air movement Cardiovascular: No edema, Regular rate/rhythm, Normal S1 S2 Gastrointestinal: Soft and benign, Non-distended, No tenderness Musculoskeletal: Other (Gangrene of left second and third toes) Neurological: Normal strength at 5/5 x4 extr Laboratory Data at Discharge: WBC 10.2 K/uL (4.3-10.9) D 07/07/21 04:45 Hgb 11.4 g/dL (13.6-17.9) L 07/07/21 04:45 Hct 35.0 % (39.6-49.0) L 07/07/21 04:45 Plt Count 189 K/uL (152-406) 07/07/21 04:45 PT 14.1 SECONDS (9.5-12.5) H 07/02/21 10:44 INR 1.28 07/02/21 10:44 Sodium 136 mmol/L (136-145) 07/07/21 04:45 Potassium 3.8 mmol/L (3.5-5.1) 07/07/21 04:45 BUN 49 mg/dL (7-18) H 07/07/21 04:45 Creatinine 1.42 mg/dL (0.55-1.3) H 07/07/21 04:45 Glucose 164 mg/dL (74-106) H 07/07/21 04:45 Magnesium 2.1 mg/dL (1.8-2.4) 07/07/21 04:45 Total Bilirubin 0.8 mg/dL (0.2-1.0) 07/07/21 04:45 AST 11 U/L (15-37) L 07/07/21 04:45 ALT 11 U/L (12-78) L 07/07/21 04:45 Alkaline Phosphatase 120 U/L (45-117) H 07/07/21 04:45 Triglycerides 94 mg/dL (<150) 07/03/21 04:45 Cholesterol 124 mg/dL (<200) 07/03/21 04:45 HDL Cholesterol 30 mg/dL (40-60) L 07/03/21 04:45 Cholesterol/HDL Ratio 4.13 07/03/21 04:45 Home Medications: Promethazine HCl 25 mg PO TID PRN 08/16/17 ALPRAZolam [Alprazolam] 1 tab PO TID 01/15/21 Albuterol Sulfate [Albuterol Sulfate Hfa] 2 puff IN TID PRN 01/15/21 Budesonide/Formoterol Fumarate [Budesonide-Formoterol 160-4.5] 1 dose IN BID 01/15/21 Insulin Glargine,Hum.rec.anlog [Rajesh Colonar] 20 unit SQ DAILY 03/17/21 Insulin Lispro [Humalog] See Protocol SQ AC 03/17/21 Amiodarone HCl [Cordarone Tab] 200 mg PO BID 07/02/21 Furosemide 80 mg PO DAILY 07/02/21 Potassium Chloride 20 meq PO DAILY 07/02/21 Sacubitril/Valsartan [Entresto 49 mg-51 mg Tablet] 1 tab PO BID 07/02/21 Followup: Moi Berry MD [Primary Care Provider] - Time spent managing pt's care (in minutes): 40
[2021-07-07 09:44] VITALS: O2SAT 95
[2021-07-07 12:02] VITALS: BP 99/77
[2021-07-07] MEDS: DOBUTAMINE 250 MG/250 ML BAG IV SCH (12:11)
--- NOTE | 2021-07-07 13:28 | PN ---
Date of Progress Note: 07/07/2021 Mr. De Leon has been followed by Dr. Sepulveda and Dr. Lieberman and Dr. Roy for congestive heart failure, ejection fraction 20%, chronic peripheral arterial disease, history of CABG. He is here for gangrene . Has been hypotensive, on dobutamine drip. His blood pressure is adequate. He is actually having no symptoms from a cardiac standpoint with congestive heart failure, stable. He had small vessel dis ease. Amputation has been planned. He is on antibiotics. He has cellulitis as well of the left jewel t. We will continue present regimen. The patient is awaiting transfer to [place] for amputation. I discussed the case further with Dr. Sepulveda and Dr. Lieberman. No change in medical therapy. NB/MODL Voice ID: [id number] Report ID: [id number]
[2021-07-07 17:50] VITALS: TEMP 99
== END 2021-07-07 12:16 | disposition short-term general hospital (02) | DRG 871 ==
LOC: ER 09:30 → ERHOLD 13:01 → 3RD-ICU 16:20
PROVIDERS: ADMIT Hospitalist; ATTEND Hospitalist
PROC: 5A09357 Assistance with Respiratory Ventilation, Less than 24 Consecutive Hours, Continuous Positive Airway Pressure (ICD-10-PCS; principal; 2021-07-05)
PROC: 5A0945A Assistance with Respiratory Ventilation, 24-96 Consecutive Hours, High Flow/Velocity Cannula (ICD-10-PCS; 2021-07-05)
DX: A41.9 Sepsis, unspecified organism (principal); R65.21 Severe sepsis with septic shock; R57.0 Cardiogenic shock; I50.23 Acute on chronic systolic (congestive) heart failure; J96.21 Acute and chronic respiratory failure with hypoxia; E11.52 Type 2 diabetes mellitus with diabetic peripheral angiopathy with gangrene; I96 Gangrene, not elsewhere classified; C91.01 Acute lymphoblastic leukemia, in remission; M86.8X7 Other osteomyelitis, ankle and foot; I48.20 Chronic atrial fibrillation, unspecified; L03.116 Cellulitis of left lower limb; L03.115 Cellulitis of right lower limb; I25.10 Atherosclerotic heart disease of native coronary artery without angina pectoris; R68.89 Other general symptoms and signs; U09.9 Post COVID-19 condition, unspecified; J44.9 Chronic obstructive pulmonary disease, unspecified; E11.621 Type 2 diabetes mellitus with foot ulcer; L97.529 Non-pressure chronic ulcer of other part of left foot with unspecified severity; E11.69 Type 2 diabetes mellitus with other specified complication; I11.0 Hypertensive heart disease with heart failure; E83.42 Hypomagnesemia; J84.10 Pulmonary fibrosis, unspecified; I27.20 Pulmonary hypertension, unspecified; F17.210 Nicotine dependence, cigarettes, uncomplicated; Z99.81 Dependence on supplemental oxygen; Z86.711 Personal history of pulmonary embolism; Z95.1 Presence of aortocoronary bypass graft; Z95.5 Presence of coronary angioplasty implant and graft; Z95.810 Presence of automatic (implantable) cardiac defibrillator; E78.5 Hyperlipidemia, unspecified; Z79.4 Long term (current) use of insulin; Z66 Do not resuscitate; Z20.822 Contact with and (suspected) exposure to COVID-19
CPT/HCPCS: 36415; 36569; 71045; 71275; 73700; 74175; 80048; 80053; 80061; 80076; 80202; 82805; 82947; 83605; 83735; 83880; 84443; 84484; 85025; 85610; 86140; 86850; 86900; 86901; 87040; 87070; 87086; 87088; 87205; 93005; 93306; 93925; 93970; 94003; 94640; 94660; 96374; 96375; 99215; 99251; 99285; C9113; J1250; J1650; J1815; J1940; J2185; J2370; J2405; J2543; J2920; J3370; J3475; J3535; J7030; J7040; J7060; Q9967; U0003